=== PATIENT | female | born 1930 | race Caucasian/White ===

== ENCOUNTER 2018-01-04 23:03 | Inpatient (IN) | payer MEDICARE ==
[~2018-01-04] VITALS: Ht 162.6 cm; Wt 53.1 kg
[2018-01-05] VITALS (22 sets, daily range): BP systolic 89–187; BP diastolic 43–88
[2018-01-05] MEDS ORDERED: ONDANSETRON HCL 4 MG ORAL DISINTEGRATING TAB PO ONE (00:30)
--- NOTE | 2018-01-05 00:44 | Diagnostic Imaging Report ---
ABDOMEN ACUTE SERIES W/PA CXR Clinical history: Rectal pain Technique: AP view abdomen Comparison: 04/10/2017 chest radiograph Findings: Abdomen: Moderate gaseous distention of the stomach with air-fluid level. No dilated loops of small or large bowel or free air. 1 cm calcification of the left pelvis could reflect a fibroid or less likely bladder calculus. Chest: Stable appearance of the chest. Hyperinflation without acute abnormality. Aortic calcifications. Bones: Multilevel degenerative changes and curvature of the spine. Impression: 1. No acute pulmonary abnormality. 2. Moderate gastric distention with otherwise nonobstructive bowel gas pattern. Signed by: Dr Juany Naranjo MD on 01/05/2018 12:40 AM
[2018-01-05] MEDS ORDERED: DIATRIZOATE MEGL/DIATRIZOA SOD 30 ML BTL PO ONE (01:35)
[2018-01-05 01:41] LABS: BASOPHILS % 0.4 % (0.0-1.0); EOSINOPHILS # (AUTO) 0.1 (0.0-0.4); EOSINOPHILS % 0.9 % (0.0-6.0); HEMOGLOBIN 13.1 g/dL (12.0-16.0); LYMPHOCYTES # (AUTO) 1.4 (1.0-3.2); LYMPHOCYTES % 14.2 % (18.0-39.1); MEAN CORPUSCULAR HEMOGLOBIN 29.7 pg (28-32); MEAN CORPUSCULAR HGB CONC 35.4 g/dL (31-35); MEAN CORPUSCULAR VOLUME 83.9 fL (81-99); MONOCYTES # (AUTO) 0.7 (0.2-0.8); MONOCYTES % 6.8 % (4.4-11.3); NEUTROPHILS # (AUTO) 7.8 (2.1-6.9); NEUTROPHILS % 76.9 % (38.7-80.0); PLATELET COUNT 295 x10e3/uL (140-360); RED BLOOD COUNT 4.41 x10e6/uL (3.6-5.1); RED CELL DISTRIBUTION WIDTH 12.3 % (11.7-14.4)
[2018-01-05 02:00] LABS: ALANINE AMINOTRANSFERASE 12 IU/L (0-55); ALBUMIN 4.2 g/dL (3.5-5.0); ALBUMIN/GLOBULIN RATIO 1.2 (0.8-2.0); ALKALINE PHOSPHATASE 98 IU/L (40-150); AMYLASE 59 U/L (25-125); BLOOD UREA NITROGEN 11 mg/dL (7-26); BUN/CREATININE RATIO 14 (6-25); CALCIUM 9.6 mg/dL (8.4-10.2); CARBON DIOXIDE 22 mmol/L (22-29); CHLORIDE 83 mmol/L (98-107); EST GLOMERULAR FILTRATION RATE > 60 ML/MIN (60-); GLUCOSE 134 mg/dL (74-118); LIPASE 54 U/L (8-78)
[2018-01-05 02:06] LABS: BILIRUBIN,URINE NEGATIVE (NEGATIVE); CLARITY,URINE CLEAR (CLEAR); COLOR,URINE YELLOW (YELLOW); KETONES,URINE NEGATIVE (NEGATIVE); LEUKOCYTE ESTERASE ,URINE NEGATIVE (NEGATIVE); NITRITE,URINE NEGATIVE (NEGATIVE); PROTEIN,URINE DIPSTICK TRACE (NEGATIVE); URINE UROBILINOGEN 0.2 mg/dL (0.2 - 1)
[2018-01-05 02:08] LABS: EPITHELIAL CELLS,URINE FEW /LPF; WBC,URINE (MAN) 0-5 /HPF (0-5)
[2018-01-05 02:12] LABS: SODIUM 117 mmol/L (136-145)
[2018-01-05] MEDS ORDERED: SODIUM CHLORIDE 0.9% 1000ML 1,000 ML ONE (02:21)
[2018-01-05] MEDS ORDERED: MORPHINE SULFATE 2 MG/ML SYR IV STA (02:40)
[2018-01-05] MEDS ORDERED: SODIUM CHLORIDE 0.9% 50ML 50 ML ONE (02:46)
[2018-01-05] MEDS ORDERED: IOPAMIDOL 370 MG/ML 200 ML INFUS..BTL INJ ONE (02:48)
[2018-01-05] MEDS ORDERED: SILVER SULFADIAZINE 400GM CREAM ONE (03:37)
--- NOTE | 2018-01-05 03:40 | Diagnostic Imaging Report ---
EXAM: CT ABDOMEN/PELVIS W DATE: 01/05/2018 12:59 AM INDICATION: Abdominal pain and vomiting COMPARISON: None TECHNIQUE: The abdomen and pelvis were scanned using a multidetector helical scanner. Coronal and sagittal reformations were obtained. Routine protocol performed. IV Contrast: 100 ml Isovue 370 Oral contrast was administered. FINDINGS: LOWER THORAX: No consolidations LIVER/BILIARY: Several hypodense liver lesions, most likely cysts. No ductal dilatation. GALLBLADDER: Unremarkable SPLEEN: Normal spleen size with multiple tiny low-density lesions, indeterminate though statistically benign. PANCREAS: Unremarkable ADRENALS: No nodules KIDNEYS: Probable subcentimeter left renal cyst. No hydronephrosis. GI TRACT: Moderate gastric distention, but without evidence of obstructing lesion. Oral contrast passes through the stomach and into small bowel. Note is made of a normal appendix and diverticulosis, most prominent of the sigmoid colon. VESSELS: Moderate atherosclerotic disease PERITONEUM/RETROPERITONEUM: No free air or fluid LYMPH NODES: No lymphadenopathy REPRODUCTIVE ORGANS/BLADDER: Unremarkable BONES: Multilevel degenerative changes and curvature of the spine. IMPRESSION: 1. Moderate gastric dilation, but without evidence of obstruction. This can be seen with gastroparesis. 2. Otherwise no acute abnormality. Signed by: Dr Juany Naranjo MD on 01/05/2018 3:37 AM
--- OUTSIDE RECORDS SUMMARY | 2018-01-05 03:56 | XMS REPORT ---
Author Author [facility] Address Unknown Phone Unavailable Care Team Providers Care Financial Aid Officer Name Role Phone ELIZABETH JAMES Unavailable Unavailable Problems This patient has no known problems. Allergies, Adverse Reactions, Alerts This patient has no known allergies or adverse reactions. Medications This patient has no known medications. Results Test Description Test Time Test Comments Text Results Atomic Results Result Comments CT ABDOMEN/PELVIS W [address] [address] Patient Name: FRANK PERRY MR #: [id number] : 1930 Age/Sex: 87/F Req #: [id number] Adm Physician: Ordered by: ELIZABETH JAMES MD Report # : [id number] Location: ER Room/Bed: Procedure: [id number] -[id number] CT/CT ABDOMEN/PELVIS W Exam Date: Exam Time: REPORT STATUS: Signed EXAM: CT ABDOMEN/PELVIS W DATE: 01/05/2018 12: 59 AM INDICATION: Abdominal pain and vomiting COMPARISON: None TECHNIQUE: The abdomen and pelvis were scanned using a multidetector helical scanner. Coronal and sagittal reformations were obtained. Routine protocol performed. IV Contrast: 100 ml Isovue 370 Oral contrast was administered. FINDINGS: LOWER THORAX: No consolidations LIVER/BILIARY: Several hypodense liver lesions, most likely cysts. No ductal dilatation. GALLBLADDER: Unremarkable SPLEEN: Normal spleen size with multiple tiny low- density lesions, indeterminate though statistically benign. PANCREAS: Unremarkable ADRENALS: No nodules KIDNEYS: Probable subcentimeter left renal cyst. No hydronephrosis. GI TRACT: Moderate gastric distention, but without evidence of obstructing lesion. Oral contrast passes through the stomach and into small bowel. Note is made of a normal appendix and diverticulosis, most prominent of the sigmoid colon. VESSELS: Moderate atherosclerotic disease PERITONEUM/RETROPERITONEUM: No free air or fluid LYMPH NODES: No lymphadenopathy REPRODUCTIVE ORGANS/BLADDER: Unremarkable BONES: Multilevel degenerative changes and curvature of the spine. IMPRESSION: 1. Moderate gastric dilation, but without evidence of obstruction. This can be seen with gastroparesis. 2. Otherwise no acute abnormality. Signed by: Dr Jesse Naranjo MD on 01/05/2018 3:37 AM Dictated By: JESSE NARANJO MD 6 Transcribed By: ROLO on 01/05/18336 COPY TO: ELIZABETH JAMES MD ABDOMEN ACUTE SERIES W/PA CXR [place] [address] Patient Name: FRANK PERRY MR #: [id number] : 1930 Age/Sex: 87/F Req #: [id number] Adm Physician: Ordered by: ELIZABETH JAMES MD Report #: [id number] Location: ER Room/Bed: ___ Procedure: [id number] DX/ABDOMEN ACUTE SERIES W/PA CXR Exam Date: Exam Time: 2350 REPORT STATUS: Signed ABDOMEN ACUTE SERIES W/PA CXR Clinical history: Rectal pain Technique: AP view abdomen Comparison: 04/10/2017 chest radiograph Findings: Abdomen: Moderate gaseous distention of the stomach with air-fluid level. No dilated loops of small or large bowel or free air. 1 cm calcification of the left pelvis could reflect a fibroid or less likely bladder calculus. Chest : Stable appearance of the chest. Hyperinflation without acute abnormality. Aortic calcifications. Bones: Multilevel degenerative changes and curvature of the spine. Impression: 1. No acute pulmonary abnormality. 2. Moderate gastric distention with otherwise nonobstructive bowel gas pattern. Signed by: Dr Jesse Naranjo MD on 01/05/2018 12:40 AM Dictated By: JESSE NARANJO MD Transcribed By: ROLO on 01/05/1839 COPY TO: ELIZABETH JAMES MD
[2018-01-05] MEDS ORDERED: CEPHALEXIN500 MG PO (03:57)
[2018-01-05] MEDS ORDERED: NORVASC5 MG PO (03:57)
[2018-01-05] MEDS ORDERED: CELEBREX100 MG PO (03:57)
[2018-01-05] MEDS: SODIUM CHLORIDE 0.9% 1000ML 1,000 ML IV SCH ×2 (03:57→04:37)
[2018-01-05] MEDS ORDERED: ONDANSETRON HCL 4 MG ORAL DISINTEGRATING TAB PO PRN (04:00)
[2018-01-05] MEDS ORDERED: SIMETHICONE 40 MG/0.6 ML BTL PO ONE (04:45)
[2018-01-05] MEDS: CEPHALEXIN 500 MG CAP PO SCH ×5 (08:43→20:21)
[2018-01-05] MEDS: CELECOXIB 100 MG CAP PO SCH (08:43)
[2018-01-05 16:13] LABS: ANION GAP 11.3 mmol/L (8-16); BLOOD UREA NITROGEN 9 mg/dL (7-26); BUN/CREATININE RATIO 13 (6-25); CALCIUM 8.7 mg/dL (8.4-10.2); CARBON DIOXIDE 22 mmol/L (22-29); CHLORIDE 84 mmol/L (98-107); CREATININE, SERUM 0.71 mg/dL (0.57-1.11); EST GLOMERULAR FILTRATION RATE > 60 ML/MIN (60-); GLUCOSE 126 mg/dL (74-118); POTASSIUM 4.3 mmol/L (3.5-5.1)
[2018-01-05 16:17] LABS: SODIUM 113 mmol/L (136-145)
--- NOTE | 2018-01-05 16:32 | Diagnostic Imaging Report ---
Exam: Head CT without contrast History: Confusion and headache. Comparison studies: None Technique: Axial images were obtained from the skull base to the vertex. Coronal and sagittal images reconstructed from the axial data. Intravenous contrast: None Findings: Scalp: No abnormalities. Bones: No fractures, blastic or lytic lesions. Brain sulci: Appropriate for age. Ventricles: Normal in size and configuration. No hydrocephalus. Extra-axial spaces: No masses, no fluid collection. Parenchyma: Hypodensity in the right inferior insular region is compatible with a prominent perivascular space. No masses, hemorrhage, acute or chronic vascular insults. Sellar/suprasellar region: No abnormalities. Craniocervical junction: Patent foramen magnum. No Chiari one malformation. IMPRESSION: No acute intracranial abnormality. Preliminary report was provided by neuroradiology fellow, Dr.Thach Sarika MD on 01/05/2018 4:32 PM. I have reviewed the images and agree with the findings in the preliminary report. Signed by: Dr. Leonila Jorge M.D. on 01/05/2018 7:39 PM
[2018-01-05] MEDS ORDERED: HYDRALAZINE HCL 20 MG/ML VIAL IV PRN (17:00)
[2018-01-05] MEDS: COLLAGENASE OINTMENT 30 GM TUBE TP SCH (17:00)
[2018-01-05] MEDS: ONDANSETRON HCL INJ 2 MG/ML VIAL IV PRN (17:55)
[2018-01-05 18:02] LABS: THYROID STIMULATING HORMONE 1.921 uIU/mL (0.350-4.940)
[2018-01-05] MEDS ORDERED: SODIUM CHLORIDE 3% 500 ML IV SCH (18:15)
[2018-01-05] MEDS ORDERED: SODIUM CHLORIDE 0.9% 1000ML 1,000 ML IV ONE (18:15)
[2018-01-05] MEDS ORDERED: SODIUM CHLORIDE 3% 240 ML IV ONE ×2 (18:15→19:00)
[2018-01-05 18:27] LABS: CREATININE,URINE RANDOM 12.4 mg/dL (47-110)
[2018-01-05] MEDS ORDERED: SODIUM CHLORIDE 3% 100 ML IV ONE (18:30)
[2018-01-05 18:58] LABS: AMPHETAMINES SCREEN,URINE NEGATIVE (NEGATIVE); BENZODIAZEPINES SCREEN,URINE NEGATIVE (NEGATIVE); PHENCYCLIDINE SCREEN,URINE NEGATIVE (NEGATIVE)
[2018-01-05] MEDS: MORPHINE SULFATE 2 MG/ML SYR IV PRN (19:45)
[2018-01-05] MEDS: AMLODIPINE BESYLATE 5 MG TAB PO SCH ×2 (20:20→20:22)
[2018-01-05 21:41] LABS: ANION GAP 10.7 mmol/L (8-16); BLOOD UREA NITROGEN 11 mg/dL (7-26); BUN/CREATININE RATIO 15 (6-25); CALCIUM 8.1 mg/dL (8.4-10.2); CARBON DIOXIDE 19 mmol/L (22-29); CHLORIDE 89 mmol/L (98-107); CREATININE, SERUM 0.72 mg/dL (0.57-1.11); EST GLOMERULAR FILTRATION RATE > 60 ML/MIN (60-); GLUCOSE 126 mg/dL (74-118); POTASSIUM 3.7 mmol/L (3.5-5.1)
[2018-01-05 21:44] LABS: SODIUM 115 mmol/L (136-145)
[2018-01-05 23:36] LABS: CLARITY,URINE CLEAR (CLEAR); COLOR,URINE YELLOW (YELLOW); KETONES,URINE 1+ (NEGATIVE); LEUKOCYTE ESTERASE ,URINE NEGATIVE (NEGATIVE); NITRITE,URINE NEGATIVE (NEGATIVE); PROTEIN,URINE DIPSTICK 1+ (NEGATIVE)
[2018-01-05 23:37] LABS: BILIRUBIN,URINE NEGATIVE (NEGATIVE); URINE UROBILINOGEN 0.2 mg/dL (0.2 - 1)
[2018-01-05 23:48] LABS: EPITHELIAL CELLS,URINE RARE /LPF; WBC,URINE (MAN) 0-5 /HPF (0-5)
[2018-01-06] VITALS (29 sets, daily range): BP systolic 77–133; BP diastolic 41–70
[2018-01-06] MEDS ORDERED: CEFAZOLIN SOD 1 GM/NS 50ML 50 ML IV SCH
[2018-01-06] MEDS: CEFAZOLIN SOD 1 GM VIAL IV SCH ×5 (00:12→23:26)
[2018-01-06 00:39] LABS: BLOOD UREA NITROGEN 13 mg/dL (7-26); BUN/CREATININE RATIO 16 (6-25); CALCIUM 8.1 mg/dL (8.4-10.2); CARBON DIOXIDE 19 mmol/L (22-29); CHLORIDE 90 mmol/L (98-107); CREATININE, SERUM 0.82 mg/dL (0.57-1.11); EST GLOMERULAR FILTRATION RATE > 60 ML/MIN (60-); GLUCOSE 102 mg/dL (74-118)
[2018-01-06 00:47] LABS: SODIUM 117 mmol/L (136-145)
[2018-01-06] MEDS ORDERED: SODIUM CHLORIDE 0.9% 1000ML 1,000 ML IV SCH (01:00)
[2018-01-06] MEDS ORDERED: SODIUM CHLORIDE 0.9% 1000ML 1,000 ML ONE (01:07)
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
[2018-01-06 04:22] LABS: BASOPHILS % 0.1 % (0.0-1.0); EOSINOPHILS # (AUTO) 0.1 (0.0-0.4); EOSINOPHILS % 0.6 % (0.0-6.0); HEMATOCRIT 28.4 % (34.2-44.1); LYMPHOCYTES # (AUTO) 1.5 (1.0-3.2); LYMPHOCYTES % 18.8 % (18.0-39.1); MEAN CORPUSCULAR HEMOGLOBIN 29.6 pg (28-32); MEAN CORPUSCULAR HGB CONC 35.2 g/dL (31-35); MONOCYTES % 12.6 % (4.4-11.3); NEUTROPHILS # (AUTO) 5.3 (2.1-6.9); NEUTROPHILS % 67.5 % (38.7-80.0); PLATELET COUNT 223 x10e3/uL (140-360); RED BLOOD COUNT 3.38 x10e6/uL (3.6-5.1); RED CELL DISTRIBUTION WIDTH 12.3 % (11.7-14.4)
[2018-01-06 04:42] LABS: ALANINE AMINOTRANSFERASE 10 IU/L (0-55); ALBUMIN 2.6 g/dL (3.5-5.0); ALKALINE PHOSPHATASE 59 IU/L (40-150); ANION GAP 8.9 mmol/L (8-16); BLOOD UREA NITROGEN 12 mg/dL (7-26); BUN/CREATININE RATIO 16 (6-25); CARBON DIOXIDE 20 mmol/L (22-29); CHLORIDE 94 mmol/L (98-107); CREATININE, SERUM 0.76 mg/dL (0.57-1.11); EST GLOMERULAR FILTRATION RATE > 60 ML/MIN (60-); GLUCOSE 95 mg/dL (74-118); POTASSIUM 3.9 mmol/L (3.5-5.1)
[2018-01-06 04:43] LABS: SODIUM 119 mmol/L (136-145)
[2018-01-06] MEDS: MORPHINE SULFATE 2 MG/ML SYR IV PRN ×3 (04:44→20:31)
[2018-01-06] MEDS: ONDANSETRON HCL INJ 2 MG/ML VIAL IV PRN ×2 (04:48→20:31)
[2018-01-06] MEDS: ACETAMINOPHEN 325 MG TAB PO PRN (05:10)
--- NOTE | 2018-01-06 06:54 | Diagnostic Imaging Report ---
CHEST SINGLE (PORTABLE), 01/06/2018 5:00 AM Technique: CHEST SINGLE (PORTABLE) Comparison: 01/04/2018 Clinical history: Screening, altered mental status Findings: Stable appearance of the heart, mediastinum, lungs and pleural spaces given differences in technique. Minimal linear left basilar atelectasis or scar. Impression: 1. Lines/Tubes: None 2. No acute abnormality. Signed by: Dr Juany Naranjo MD on 01/06/2018 6:51 AM
[2018-01-06 08:40] LABS: ANION GAP 9.8 mmol/L (8-16); BLOOD UREA NITROGEN 11 mg/dL (7-26); BUN/CREATININE RATIO 14 (6-25); CALCIUM 7.9 mg/dL (8.4-10.2); CARBON DIOXIDE 19 mmol/L (22-29); CHLORIDE 96 mmol/L (98-107); CREATININE, SERUM 0.77 mg/dL (0.57-1.11); EST GLOMERULAR FILTRATION RATE > 60 ML/MIN (60-); GLUCOSE 93 mg/dL (74-118); POTASSIUM 3.8 mmol/L (3.5-5.1); SODIUM 121 mmol/L (136-145)
[2018-01-06] MEDS: COLLAGENASE OINTMENT 30 GM TUBE TP SCH ×2 (09:00→18:28)
[2018-01-06] MEDS: CELECOXIB 100 MG CAP PO SCH (09:21)
[2018-01-06] MEDS: HYDROCORTISONE ACETATE 25 MG/SUPP.RECT SUPP RC SCH ×2 (09:21→17:00)
[2018-01-06] MEDS ORDERED: SODIUM CHLORIDE 0.45% 1,000 ML IV SCH (10:15)
[2018-01-06 13:15] LABS: ANION GAP 11.9 mmol/L (8-16); BLOOD UREA NITROGEN 13 mg/dL (7-26); BUN/CREATININE RATIO 17 (6-25); CALCIUM 8.1 mg/dL (8.4-10.2); CARBON DIOXIDE 17 mmol/L (22-29); CHLORIDE 97 mmol/L (98-107); CREATININE, SERUM 0.77 mg/dL (0.57-1.11); EST GLOMERULAR FILTRATION RATE > 60 ML/MIN (60-); GLUCOSE 130 mg/dL (74-118); POTASSIUM 3.9 mmol/L (3.5-5.1); SODIUM 122 mmol/L (136-145)
--- NOTE | 2018-01-06 13:24 | Consultation ---
DATE OF CONSULTATION: January 05, 2018 History predominantly from family. The patient is confused, but alert and follows commands to some extent. Renal was consulted for hyponatremia. The patient apparently came in with rectal pain and hemorrhoids and developed altered mental status and had a CT scan done of the brain, which was negative. Chemistry shows profound hyponatremia. She was started on IV normal saline but repeat serum sodium dropped from 117 to 113. She has a normal creatinine of 0.7. Blood sugars 126 to 110. Serum osmolality is 229. Globulins are 3.60. Amylase, lipase normal. TSH pending. ALLERGIES: NO APPARENT DRUG ALLERGIES. SOCIAL HISTORY: Does not smoke or drink. FAMILY HISTORY: Significant for hypertension apparently and coronary artery disease. CURRENT MEDICATIONS: 1. She is on ondansetron p.r.n. 2. Morphine p.r.n. 3. She is on cephalexin (Keflex) 500 mg q.i.d. 4. She is on Celebrex 200 mg p.o. daily. 5. She is on amlodipine 5 mg at bedtime. 6. Started on IV normal saline at 80 mL an hour. 7. She is on simethicone drops p.r.n. PHYSICAL EXAMINATION: GENERAL: An elderly female lying supine. No apparent distress. HEAD AND NECK: Oral mucosa dry limited exam dry. Skin turgor poor. Some amount of senility to the skin turgor. LUNGS: Relatively clear. No rales or rhonchi. HEART: S1 and S2 audible. Soft 2-3/6 ejection systolic murmur in the right and left lower sternal border. No gallop. ABDOMEN: Soft, nontender. No palpable visceromegaly. EXTREMITIES: Lower extremities show no edema. IMPRESSION AND PLAN: Hyponatremia. Fairly concentrated urine with a urine specific gravity of 1.025. Hyponatremia, hypo-osmolar state. Most likely sodium depletion. Now whatever home medications have been listed. None of them can possibly cause hyponatremia. Will obtain thyroid function tests, serum uric acid. We may be dealing with explain symptoms of dehydration with poor salt intake, leading to hyponatremia. With appropriate of ADH nausea and vomiting. However, we may underlying [id number] phenomenon. Will give 800 mL of 3% hypertonic stat and then start 3% hypertonic saline at 40 mL an hour. Labs. Will limit the rate of rise of serum sodium by not more than 6 to 8 mEq in the next 24 hours. Nurse to call me when it runs. Patient to be transferred to the ICU. Discussed with RN. Job#: [id number] GH
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
--- NOTE | 2018-01-06 14:42 | Consultation ---
DATE OF CONSULTATION: January 05, 2018 NEUROLOGY CONSULT NOTE HISTORY OF PRESENT ILLNESS: Ms. Crisostomo is an 87-year-old woman with past medical history significant for hypertension and hyperlipidemia admitted to [facility] on January 13, 2018 with hyponatremia. The patient is encephalopathic and cannot provide any history. There are no family members available at the bedside. History is obtained from medical staff and review of the electronic medical records. Ms. Crisostomo presented to the emergency center at [facility] on evening of January 04, 2018 with hemorrhoids and rectal pain. The emergency center was preparing the patient's discharge, when Ms. Crisostomo had an episode of vomiting. Following this episode of emesis, blood work was ordered. The patient was found to be hyponatremic with a sodium of 117. Ms. Crisostomo was admitted to [facility] for further evaluation and treatment of hyponatremia. While on the floor, the patient became encephalopathic. Repeat blood work was ordered and showed the patient's sodium had dropped further to 113. Multiple consultations were placed at that time, including a neurology consultation for encephalopathy. REVIEW OF SYSTEMS: Unable to obtain as the patient is encephalopathic. PAST MEDICAL HISTORY: Hypertension, hyperlipidemia, GERD. PAST SURGICAL HISTORY: LASIK. FAMILY MEDICAL HISTORY: Hypertension. SOCIAL HISTORY: The patient is . She is retired. There is no reported current or prior history of tobacco, alcohol or recreational drug use. HOME MEDICATIONS 1. Norvasc 5 mg by mouth at bedtime daily. 2. Celebrex 200 mg by mouth daily. 3. Keflex 500 mg by mouth 4 times daily. ALLERGIES: NO KNOWN DRUG ALLERGIES. NO KNOWN FOOD ALLERGIES. NO KNOWN ALLERGIES TO LATEX. NO KNOWN ALLERGIES TO IODINE OR OTHER CONTRAST MATERIALS. PHYSICAL EXAMINATION VITAL SIGNS: Height 64 inches, weight 105 lbs, BMI 21.5 kg per meter squared. Blood pressure 131/67 mmHg. Pulse 97 beats per minute. Respiratory rate 18 breaths per minute. Oxygen saturation 97% on room air. GENERAL: The patient is awake, confused, anxious. HEENT: Normocephalic, atraumatic. Pupils are equal, round, and reactive to light. Moist mucous membranes. NECK: Supple. No appreciable thyromegaly. No appreciable carotid bruits. CARDIOVASCULAR: S1, S2, regular rate and rhythm. No murmurs, rubs or gallops. RESPIRATORY: Clear to auscultation bilaterally. No wheezes, rhonchi or rales. EXTREMITIES: The skin is warm and dry. No clubbing, cyanosis or edema. The posterior tibial and dorsalis pedis pulses are 1+ and symmetric. SKIN: No rashes or lesions. NEUROLOGIC Memory/Attention: The patient is awake and alert, confused, anxious. Ms. Crisostomo is oriented to self only. Cranial Nerves: Cranial nerve I--not tested. Cranial nerve II, III, IV, and --pupils are equal and round, react briskly to light (from 4 mm to 2 mm), extraocular movements intact, no nystagmus. Cranial nerve V--sensation to light touch and pinprick is intact in the bilateral V1 through V3 distributions. Strength of the temporalis and masseter muscles is within normal limits. Cranial nerve VII--the face is symmetric as were all facial movements. Strength is within normal limits. Cranial nerve VIII--hearing is intact to finger rub bilaterally. Cranial nerve IX, X--the palate elevates equally and symmetrically. Cranial nerve XI--normal strength of the bilateral sternocleidomastoid and trapezius muscles. Cranial nerve XII--the tongue protrudes midline and moves symmetrically from side to side. Strength: Normal bulk. Both arms are held against gravity for more than 10 seconds. Both legs are held against gravity for more than 5 seconds. Normal tone. DTRs: Deep tendon reflexes are 1+ and symmetric at the triceps biceps brachioradialis and patellas. The Achilles reflexes are absent and symmetric. Plantar responses are flexor bilaterally. Absent clonus. Sensation: Sensation is intact to light touch in both arms and both legs. Cerebellar: Unable to assess as the patient is encephalopathic. Gait: Deferred. Speech: Spontaneous speech is normal without appreciable dysarthria or aphasia. Involuntary Movements: Patient appears tremulous. Pronator drift: None. LABORATORY DATA: Sodium 113, BUN 10, glucose 110. Serum osmolality 229, triglycerides 74. TSH 1.291. Uric acid 1.3. Free T4 1.12. CBC with differential and platelets reveals white blood cell count of 10.08 with 76.9% neutrophils, 14.2% lymphocytes, 6.8% monocytes, 0.9% eosinophils, 0.4% basophils. The hemoglobin and hematocrit of 13.1 and 37.0 respectively. The platelet count 295,000. Urinalysis is significant for a pH of 8, trace protein, trace glucose, 2+ blood, and 11 to 20 red blood cells, urine sodium 65, urine creatinine 12.40. DIAGNOSTIC STUDIES 1. Acute abdomen series on January 04, 2018: No acute pulmonary abnormality. Moderate gastric distention with otherwise nonobstructive bowel-gas pattern. 2. CT of abdomen and pelvis on January 05, 2018: Moderate gastric dilation, but without evidence of obstruction. This can be seen with gastroparesis. Otherwise, no acute abnormality. 3. CT of the brain without contrast on January 05, 2018: On my review, there is no evidence of recent large territorial ischemia, hemorrhage, mass or mass affect. There is mild diffuse cerebral actually, appropriate for age. ASSESSMENT AND PLAN: Ms. Crisostomo is an 87-year-old woman with past medical history significant for hypertension and hyperlipidemia, admitted to [facility] on January 13, 2018 with hyponatremia. The patient's neurological examination is limited by encephalopathy. However, there do not appear to be any focal deficits. The patient's laboratory data and diagnostic studies have been reviewed and are documented above. Ms. Crisostomo is encephalopathic due to hyponatremia. There are multiple possible causes of hyponatremia including, but not limited to: Excessive fluid intake, poor oral intake of food/beverages, liver or kidney disease, congestive heart failure, syndrome of inappropriate ADH secretion, nausea and vomiting, diarrhea, or medication/drug affect. Ms. Crisostomo is not taking any medications which would result in hyponatremia. I spoke with the rice cleaning machine tender, Dr. Rider. He reported nausea and vomiting with poor oral intake over a period of several days prior to admission. He noted on his physical examination that the patient appeared to be "dry". He strongly suspects this is the cause of the patient's hyponatremia. Multiple blood and urine studies have been ordered. Dr. Rider has prescribed hypertonic saline to correct Ms. Crisostomo's hyponatremia. I will place orders for an echocardiogram as well as a urine drug screen. These studies are likely to be low yield, but will complete an hyponatremia evaluation. Thank you for this consultation. I will continue to follow this patient while she remains in hospital. TIME SPENT: 70 minutes. Job#: [id number]
[2018-01-06] MEDS ORDERED: SODIUM BICARBONATE 650 MG TAB PO SCH (17:00)
[2018-01-06 18:47] LABS: ANION GAP 10.2 mmol/L (8-16); BLOOD UREA NITROGEN 20 mg/dL (7-26); BUN/CREATININE RATIO 25 (6-25); CARBON DIOXIDE 21 mmol/L (22-29); CHLORIDE 99 mmol/L (98-107); CREATININE, SERUM 0.81 mg/dL (0.57-1.11); EST GLOMERULAR FILTRATION RATE > 60 ML/MIN (60-); GLUCOSE 97 mg/dL (74-118); POTASSIUM 4.2 mmol/L (3.5-5.1); SODIUM 126 mmol/L (136-145)
[2018-01-06] MEDS: AMLODIPINE BESYLATE 5 MG TAB PO SCH (20:31)
[2018-01-06] MEDS ORDERED: SODIUM CHLORIDE 1 GM TAB PO SCH (21:00)
[2018-01-07] VITALS (29 sets, daily range): BP systolic 106–154; BP diastolic 50–90
[2018-01-07] MEDS: MORPHINE SULFATE 2 MG/ML SYR IV PRN ×2 (00:39→04:15)
[2018-01-07 05:07] LABS: BASOPHILS % 0.6 % (0.0-1.0); EOSINOPHILS # (AUTO) 0.2 (0.0-0.4); EOSINOPHILS % 3.3 % (0.0-6.0); HEMATOCRIT 30.8 % (34.2-44.1); HEMOGLOBIN 10.7 g/dL (12.0-16.0); LYMPHOCYTES # (AUTO) 1.7 (1.0-3.2); LYMPHOCYTES % 27.7 % (18.0-39.1); MEAN CORPUSCULAR HEMOGLOBIN 29.8 pg (28-32); MEAN CORPUSCULAR HGB CONC 34.7 g/dL (31-35); MEAN CORPUSCULAR VOLUME 85.8 fL (81-99); MONOCYTES # (AUTO) 0.9 (0.2-0.8); MONOCYTES % 13.7 % (4.4-11.3); NEUTROPHILS # (AUTO) 3.4 (2.1-6.9); NEUTROPHILS % 54.2 % (38.7-80.0); PLATELET COUNT 215 x10e3/uL (140-360); RED BLOOD COUNT 3.59 x10e6/uL (3.6-5.1); RED CELL DISTRIBUTION WIDTH 12.9 % (11.7-14.4)
[2018-01-07 05:28] LABS: ALBUMIN 2.6 g/dL (3.5-5.0); CALCIUM 8.3 mg/dL (8.4-10.2); CREATININE, SERUM 0.9 mg/dL (0.57-1.11)
[2018-01-07] MEDS: ACETAMINOPHEN 325 MG TAB PO PRN (06:00)
[2018-01-07] MEDS: CEFAZOLIN SOD 1 GM VIAL IV SCH ×3 (06:47→18:00)
[2018-01-07] MEDS: COLLAGENASE OINTMENT 30 GM TUBE TP SCH ×2 (06:49→16:48)
[2018-01-07] MEDS: CELECOXIB 100 MG CAP PO SCH (09:25)
[2018-01-07] MEDS: SODIUM CHLORIDE 1 GM TAB PO SCH (09:25)
[2018-01-07] MEDS: HYDROCORTISONE ACETATE 25 MG/SUPP.RECT SUPP RC SCH ×2 (09:26→16:48)
[2018-01-07] MEDS: MAGNESIUM HYDROXIDE 30 ML UDC PO PRN (12:00)
--- NOTE | 2018-01-07 13:53 | Progress Note ---
DATE: January 07, 2018 PULMONARY MEDICINE PROGRESS NOTE SUBJECTIVE: Mrs. Crisostomo was seen and examined at the bedside. In 1.3 L and 3.1 L out recorded, and 97% oxygen saturation. Two liters per minute by nasal cannula. Three bowel movements achieved. Sodium continues to improve. She is sitting up. She does not feel drowsy today. REVIEW OF SYSTEMS: No headaches. No rash. OBJECTIVE VITALS: Afebrile. Vital signs noted per electronic record. GENERAL: In no acute distress. Alert and calm. HEENT: Normocephalic and atraumatic. NECK: Supple. Throat midline. LUNGS: Bilateral air entry. Few rare rhonchi. Mostly clear. CARDIOVASCULAR: S1 and S2. No murmurs, rubs or gallops. ABDOMEN: Soft and nontender. EXTREMITIES: No clubbing. No cyanosis. There is no edema. INTEGUMENT: No rash. No purpura. LABS: Sodium 133, potassium 4, BUN 16, creatinine 0.9. White count 6, hematocrit 30 and platelets 215,000. IMPRESSION AND PLAN 1. Critical hyponatremia. 2. Encephalopathy, resolved. 3. Weakness. 4. Recent jade. Continue local wound care. Pain medicine as needed, at least dose necessary. Follow up repeat sodium in the morning. Ensure the patient continues to improve. Job#: [id number]
[2018-01-07] MEDS: MAGNESIUM OXIDE 400 MG TAB PO SCH (15:00)
--- NOTE | 2018-01-07 15:26 | Progress Note ---
DATE: INTERNAL MEDICINE PROGRESS NOTE She is doing well now. The sodium is 133. She doing a lot better. She has some PVCs on the EKG. She was complaining neck pain. Since the patient has a history of coronary artery disease, Dr. Javier Hernandez is going to see her from the cardiology point of view. PHYSICAL EXAMINATION VITALS: Blood pressure 136/53, temperature 98.6, heart rate 80 per minute, respiratory rate is 20 per minute, oxygen saturation 97%. HEART: Shows regular rhythm. Normal S1 and S2 sounds. LUNGS: Clear bilaterally. ABDOMEN: Soft. EXTREMITIES: Show no evidence of cyanosis or trauma. BLOOD WORK: We have BMP with a sodium of 133, potassium 4, chloride 105, CO2 23, BUN 16, creatinine 0.9, glucose 87. On the CBC, white blood count 6.28, hemoglobin 10.7, hematocrit 30., and platelet count of 115,000. AST 23, ALT 9, total bilirubin 0.4, alkaline phosphatase 58. FINAL IMPRESSION 1. Episode of severe hyponatremia, which is slowly resolving. 2. Acute encephalopathy which is metabolic, which is resolved. 3. Hypertension. 4. Rectal pain, which is resolved. 5. Peripheral vascular disease on electrocardiogram. PLAN OF TREATMENT: Continue with the morphine 2 mg IV q.4 h. as needed for severe pain. Amlodipine 5 mg daily. Celebrex 200 mg daily as needed for pain. Cefazolin 1 g q.6 h. IV. Magnesium oxide 30 mL daily as needed. Collagenase twice a day. Hydrocortisone acetate 25 mg twice a day. 132 mL as needed. Hydralazine 20 mg IV q.3 h. as needed for hypertension. Sodium chloride tablet 2 g daily. Zofran 4 mg IV q.4 h. and Colace 100 mg twice a day, which is going to be substituted for Metamucil twice a day. We are going give for constipation because she does have constipation. I discussed the case with the nurse and the patient at the bedside. Time spent 55 minutes. Job#: [id number] SEGUNDO
[2018-01-07] MEDS: DOCUSATE SODIUM 100 MG CAP PO SCH (16:48)
[2018-01-07] MEDS: SOTALOL HCL 80 MG TAB PO SCH (16:50)
[2018-01-07] MEDS: MINERAL OIL 132 ML BTL PR PRN (17:00)
[2018-01-08] VITALS (9 sets, daily range): BP systolic 127–161; BP diastolic 50–73
[2018-01-08] MEDS: CEFAZOLIN SOD 1 GM VIAL IV SCH ×5 (00:23→23:39)
[2018-01-08] MEDS: ACETAMINOPHEN 325 MG TAB PO PRN (05:05)
[2018-01-08 06:12] LABS: BASOPHILS # (AUTO) 0.1 (0.0-0.1); BASOPHILS % 0.6 % (0.0-1.0); EOSINOPHILS # (AUTO) 0.5 (0.0-0.4); EOSINOPHILS % 6.9 % (0.0-6.0); HEMATOCRIT 31.5 % (34.2-44.1); HEMOGLOBIN 10.6 g/dL (12.0-16.0); LYMPHOCYTES # (AUTO) 1.4 (1.0-3.2); LYMPHOCYTES % 17.4 % (18.0-39.1); MEAN CORPUSCULAR HEMOGLOBIN 29.4 pg (28-32); MEAN CORPUSCULAR HGB CONC 33.7 g/dL (31-35); MEAN CORPUSCULAR VOLUME 87.3 fL (81-99); MONOCYTES % 12.5 % (4.4-11.3); NEUTROPHILS # (AUTO) 4.8 (2.1-6.9); NEUTROPHILS % 61.8 % (38.7-80.0); PLATELET COUNT 231 x10e3/uL (140-360); RED BLOOD COUNT 3.61 x10e6/uL (3.6-5.1); RED CELL DISTRIBUTION WIDTH 13.2 % (11.7-14.4)
[2018-01-08 06:59] LABS: ANION GAP 9.5 mmol/L (8-16); BLOOD UREA NITROGEN 16 mg/dL (7-26); BUN/CREATININE RATIO 20 (6-25); CALCIUM 8.5 mg/dL (8.4-10.2); CARBON DIOXIDE 26 mmol/L (22-29); CHLORIDE 100 mmol/L (98-107); CREATININE, SERUM 0.81 mg/dL (0.57-1.11); EST GLOMERULAR FILTRATION RATE > 60 ML/MIN (60-); GLUCOSE 87 mg/dL (74-118); MAGNESIUM 2.3 MG/DL (1.3-2.1); POTASSIUM 4.5 mmol/L (3.5-5.1); SODIUM 131 mmol/L (136-145)
[2018-01-08] MEDS: CELECOXIB 100 MG CAP PO SCH (10:06)
[2018-01-08] MEDS: SOTALOL HCL 80 MG TAB PO SCH ×2 (10:06→18:06)
[2018-01-08] MEDS: DOCUSATE SODIUM 100 MG CAP PO SCH ×2 (10:06→18:06)
[2018-01-08] MEDS: SODIUM CHLORIDE 1 GM TAB PO SCH (10:06)
[2018-01-08] MEDS: MAGNESIUM OXIDE 400 MG TAB PO SCH (10:06)
[2018-01-08] MEDS: HYDROCORTISONE ACETATE 25 MG/SUPP.RECT SUPP RC SCH ×2 (10:06→18:06)
[2018-01-08] MEDS: COLLAGENASE OINTMENT 30 GM TUBE TP SCH ×2 (10:07→21:00)
--- NOTE | 2018-01-08 13:28 | Progress Note ---
DATE: January 08, 2018 PULMONARY MEDICINE PROGRESS NOTE SUBJECTIVE: Mrs. Crisostomo was seen and examined at bedside. She continues to have . She was able to walk with some weakness only. Patient with some issues that Physical Therapy was trying to address. She is eating well. No emesis. REVIEW OF SYSTEMS: No bleeding, no rash. OBJECTIVE VITAL SIGNS: Afebrile. Vital signs noted per electronic record. GENERALLY: No acute distress, alert and calm. HEENT: Normocephalic, atraumatic. NECK: Supple. Throat midline. LUNGS: Bilateral air entry, a few rhonchi. CARDIOVASCULAR: S1 and S2. No murmurs, rubs or gallops. ABDOMINAL: Soft, nontender. EXTREMITIES: No clubbing, no cyanosis. There is no edema. INTEGUMENT: No rash. No purpura. LABS: Potassium 4.5, sodium 131, creatinine 0.8. White count 7.8, hematocrit 31, 331 platelets. IMPRESSION AND PLAN 1. Critical hyponatremia. 2. Encephalopathy, resolving. 3. Weakness. 4. Arrhythmia. 5. Hypomagnesemia. I will continue current treatment. Repeat electrolytes soon. Continue to work with Physical Therapy. Continue to monitor. Continue to modify intake per the renal specialist. Will follow along closely. Job#: [id number] PIYUSH
[2018-01-08] MEDS: ACEBUTOLOL HCL 200 MG CAP PO SCH (21:30)
[2018-01-09] VITALS (8 sets, daily range): BP systolic 131–186; BP diastolic 58–74
[2018-01-09] MEDS: CEFAZOLIN SOD 1 GM VIAL IV SCH ×4 (05:27→23:59)
[2018-01-09] MEDS: MAGNESIUM OXIDE 400 MG TAB PO SCH (08:18)
[2018-01-09] MEDS: DOCUSATE SODIUM 100 MG CAP PO SCH ×2 (08:18→17:20)
[2018-01-09] MEDS: CELECOXIB 200 MG CAP PO SCH (08:18)
[2018-01-09] MEDS: HYDROCORTISONE ACETATE 25 MG/SUPP.RECT SUPP RC SCH ×2 (08:19→17:00)
[2018-01-09] MEDS: SODIUM CHLORIDE 1 GM TAB PO SCH (08:19)
[2018-01-09] MEDS: ACEBUTOLOL HCL 200 MG CAP PO SCH ×3 (08:19→20:39)
[2018-01-09] MEDS: COLLAGENASE OINTMENT 30 GM TUBE TP SCH ×2 (09:00→19:50)
[2018-01-09] MEDS ORDERED: ONDANSETRON HCL 4 MG ORAL DISINTEGRATING TAB PO PRN (11:00)
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
[2018-01-10] VITALS (7 sets, daily range): BP systolic 126–165; BP diastolic 58–71
[2018-01-10] MEDS: CEFAZOLIN SOD 1 GM VIAL IV SCH ×3 (05:27→17:33)
[2018-01-10] MEDS: MAGNESIUM OXIDE 400 MG TAB PO SCH (07:30)
[2018-01-10] MEDS: DOCUSATE SODIUM 100 MG CAP PO SCH ×2 (08:54→16:23)
[2018-01-10] MEDS: CELECOXIB 200 MG CAP PO SCH (08:54)
[2018-01-10] MEDS: FUROSEMIDE 20 MG TAB PO SCH (08:54)
[2018-01-10] MEDS: COLLAGENASE OINTMENT 30 GM TUBE TP SCH ×2 (08:56→20:47)
[2018-01-10] MEDS: ACEBUTOLOL HCL 200 MG CAP PO SCH ×2 (08:56→16:24)
[2018-01-10] MEDS: SODIUM CHLORIDE 1 GM TAB PO SCH ×4 (08:56→20:49)
[2018-01-10] MEDS: HYDROCORTISONE ACETATE 25 MG/SUPP.RECT SUPP RC SCH ×2 (08:56→17:33)
[2018-01-10 09:37] LABS: ANION GAP 16.2 mmol/L (8-16); CALCIUM 9.6 mg/dL (8.4-10.2); CREATININE, SERUM 1.04 mg/dL (0.57-1.11); POTASSIUM 4.2 mmol/L (3.5-5.1)
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
[2018-01-10] MEDS: ACETAMINOPHEN 325 MG TAB PO PRN (15:56)
[2018-01-10] MEDS: MINERAL OIL 132 ML BTL PR PRN (16:30)
[2018-01-10] MEDS: MAGNESIUM HYDROXIDE 30 ML UDC PO PRN (19:30)
[2018-01-10] MEDS ORDERED: MIRALAX17 GM PO (19:31)
[2018-01-10] MEDS: POLYETHYLENE GLYCOL 3350 17 GM PACK PO SCH (20:52)
[2018-01-11] VITALS: BP 144/64
[2018-01-11] MEDS: CEFAZOLIN SOD 1 GM VIAL IV SCH ×3 (00:15→12:38)
[2018-01-11 08:03] VITALS: BP 149/66
[2018-01-11] MEDS: MAGNESIUM OXIDE 400 MG TAB PO SCH (08:40)
[2018-01-11] MEDS: POLYETHYLENE GLYCOL 3350 17 GM PACK PO SCH ×2 (08:40→16:20)
[2018-01-11] MEDS: FUROSEMIDE 20 MG TAB PO SCH (08:40)
[2018-01-11] MEDS: CELECOXIB 200 MG CAP PO SCH (08:40)
[2018-01-11] MEDS: DOCUSATE SODIUM 100 MG CAP PO SCH ×2 (08:40→16:20)
[2018-01-11] MEDS: ACEBUTOLOL HCL 200 MG CAP PO SCH ×2 (08:41→16:20)
[2018-01-11] MEDS: SODIUM CHLORIDE 1 GM TAB PO SCH ×3 (08:41→20:05)
[2018-01-11] MEDS: HYDROCORTISONE ACETATE 25 MG/SUPP.RECT SUPP RC SCH ×2 (08:41→16:20)
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
[2018-01-11] MEDS: ACETAMINOPHEN 325 MG TAB PO PRN (12:42)
[2018-01-11] MEDS: COLLAGENASE OINTMENT 30 GM TUBE TP SCH ×2 (13:57→20:06)
[2018-01-11 14:12] VITALS: BP 140/66
[2018-01-11 15:46] VITALS: BP 117/56
[2018-01-11 19:10] VITALS: BP 131/60
[2018-01-11 19:40] VITALS: BP 131/60
[2018-01-12] VITALS: BP 129/60
[2018-01-12 04:00] VITALS: BP 142/64
[2018-01-12 08:30] VITALS: BP 146/64
[2018-01-12] MEDS: POLYETHYLENE GLYCOL 3350 17 GM PACK PO SCH (09:00)
[2018-01-12] MEDS: FUROSEMIDE 20 MG TAB PO SCH (09:00)
[2018-01-12] MEDS: ACEBUTOLOL HCL 200 MG CAP PO SCH (09:30)
[2018-01-12] MEDS: CELECOXIB 200 MG CAP PO SCH (09:30)
[2018-01-12] MEDS: DOCUSATE SODIUM 100 MG CAP PO SCH (09:30)
[2018-01-12] MEDS: ACETAMINOPHEN 325 MG TAB PO PRN ×2 (09:30→14:45)
[2018-01-12] MEDS: MAGNESIUM OXIDE 400 MG TAB PO SCH (09:30)
[2018-01-12] MEDS: HYDROCORTISONE ACETATE 25 MG/SUPP.RECT SUPP RC SCH (09:30)
[2018-01-12] MEDS: SODIUM CHLORIDE 1 GM TAB PO SCH ×2 (09:30→15:19)
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
[2018-01-12 10:02] VITALS: BP 146/64
[2018-01-12] MEDS: COLLAGENASE OINTMENT 30 GM TUBE TP SCH (10:51)
[2018-01-12 11:46] VITALS: BP 143/66
[2018-01-12] MEDS: MINERAL OIL 132 ML BTL PR PRN (15:56)
[2018-01-12 16:26] VITALS: BP 157/63
[2018-01-12] MEDS ORDERED: ACEBUTOLOL HCL 200 MG CAP PO SCH (21:00)
[2018-01-12] MEDS ORDERED: DOCUSATE SODIUM 100 MG CAP PO SCH (21:00)
[2018-01-12] MEDS ORDERED: HYDROCORTISONE ACETATE 25 MG/SUPP.RECT SUPP RC SCH (21:00)
[2018-01-12] MEDS ORDERED: POLYETHYLENE GLYCOL 3350 17 GM PACK PO SCH (21:00)
== END 2018-01-12 17:27 | disposition home health service (06) | DRG 643 ==
LOC: ER 23:03 → MED/SURG3 01-05 03:53 → ICU 01-05 19:00 → MED/SURG 01-08 06:38
DX: E22.2 Syndrome of inappropriate secretion of antidiuretic hormone (principal); G93.41 Metabolic encephalopathy; E86.0 Dehydration; K31.84 Gastroparesis; I11.0 Hypertensive heart disease with heart failure; I50.30 Unspecified diastolic (congestive) heart failure; E83.42 Hypomagnesemia; K21.9 Gastro-esophageal reflux disease without esophagitis; X08.8XXA Exposure to other specified smoke, fire and flames, initial encounter; M47.9 Spondylosis, unspecified; M16.0 Bilateral primary osteoarthritis of hip; M81.0 Age-related osteoporosis without current pathological fracture; K59.00 Constipation, unspecified; N32.89 Other specified disorders of bladder; K64.4 Residual hemorrhoidal skin tags; D63.8 Anemia in other chronic diseases classified elsewhere; I49.3 Ventricular premature depolarization; I25.10 Atherosclerotic heart disease of native coronary artery without angina pectoris; T24.302D Burn of third degree of unspecified site of left lower limb, except ankle and foot, subsequent encounter; T21.32XD Burn of third degree of abdominal wall, subsequent encounter; K62.89 Other specified diseases of anus and rectum; G89.11 Acute pain due to trauma
CPT/HCPCS: 36415; 70450; 71045; 74022; 74177; 80048; 80053; 80307; 81001; 82150; 82436; 82570; 82947; 82948; 83690; 83735; 83930; 83935; 84295; 84300; 84439; 84443; 84478; 84520; 84550; 85025; 87086; 93005; 93306; 96360; 99284; J0360; J0690; J2270; J2405; J7030; Q9967

== ENCOUNTER → 2018-01-26 | Outpatient (CLI) | payer MEDICARE ==
[~2018-01-26] MED LIST: ACEBUTOLOL HCL200 MG PO; CELEBREX100 MG PO; CEPHALEXIN500 MG PO; DICLOXACILLIN250 MG PO; DICYCLOMINE HCL10 MG PO; MIRALAX17 GM PO; NORVASC5 MG PO; SODIUM CHLORIDE1 GM PO
--- NOTE | 2018-01-26 11:10 | Diagnostic Imaging Report ---
PROCEDURE: X-RAY BARIUM ENEMA WITH AIR CONTRAST COMPARISON: None. INDICATIONS: Rectal pain. Constipation. Lower back pain. TECHNIQUE: Croze Cutter film was obtained. Barium was introduced via a rectal tube in a retrograde fashion until contrast was noted to reach the cecum. Air was then introduced to fully inflate the colon. Multiple spot images as well as overhead and bilateral decubitus images were obtained. 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 There is no evidence of obstruction, mass, or intraluminal filling defects. No appendix is visualized. Multiple diverticuli are present in the descending and sigmoid colon. CONCLUSION: Diverticulosis of the descending and sigmoid colon. Otherwise, no acute radiographic abnormality. Dictated by: Wilman Romeo M.D. on 01/26/2018 at 11:12 Electronically approved by: Wilman Romeo M.D. on 01/26/2018 at 11:12
== END ==
LOC: DX 07:27
PROVIDERS: ATTEND Internal Medicine Gastroenterology
DX: K62.89 Other specified diseases of anus and rectum (principal)
CPT/HCPCS: 74280

== ENCOUNTER 2018-01-28 00:20 | Emergency (ER) | payer MEDICARE ==
[~2018-01-28] VITALS: Ht 162.6 cm; Wt 50.8 kg
[~2018-01-28 00:20] MED LIST changes: -ACEBUTOLOL HCL200 MG PO; -DICLOXACILLIN250 MG PO; -DICYCLOMINE HCL10 MG PO; -SODIUM CHLORIDE1 GM PO
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
[2018-01-28] MEDS ORDERED: AMLODIPINE BESYLATE 10 MG TAB PO ONE ×2 (00:45)
[2018-01-28] MEDS ORDERED: ACEBUTOLOL HCL200 MG PO (00:49)
[2018-01-28] MEDS ORDERED: DICYCLOMINE HCL10 MG PO (00:49)
[2018-01-28] MEDS ORDERED: DICLOXACILLIN250 MG PO (00:49)
[2018-01-28] MEDS ORDERED: SODIUM CHLORIDE1 GM PO (00:49)
[2018-01-28 01:12] LABS: BASOPHILS % 0.4 % (0.0-1.0); EOSINOPHILS # (AUTO) 0.3 (0.0-0.4); HEMATOCRIT 37.3 % (34.2-44.1); HEMOGLOBIN 12.5 g/dL (12.0-16.0); LYMPHOCYTES # (AUTO) 1.5 (1.0-3.2); MEAN CORPUSCULAR HEMOGLOBIN 29.7 pg (28-32); MEAN CORPUSCULAR HGB CONC 33.5 g/dL (31-35); MEAN CORPUSCULAR VOLUME 88.6 fL (81-99); MONOCYTES # (AUTO) 0.7 (0.2-0.8); MONOCYTES % 10.4 % (4.4-11.3); NEUTROPHILS # (AUTO) 4.4 (2.1-6.9); NEUTROPHILS % 63.6 % (38.7-80.0); PLATELET COUNT 240 x10e3/uL (140-360); RED BLOOD COUNT 4.21 x10e6/uL (3.6-5.1); RED CELL DISTRIBUTION WIDTH 13.2 % (11.7-14.4)
--- NOTE | 2018-01-28 01:14 | Diagnostic Imaging Report ---
History:Headache Comparison studies:Head CT on 01/05/2018 Technique: Axial images were obtained from the skull base to the vertex. Coronal and sagittal images reconstructed from the axial data. Intravenous contrast: None Findings: Scalp/skull: No abnormalities. Extra-axial spaces: No masses. No fluid collections. Brain sulci: Mildly prominent. Ventricles: Mild compensatory dilatation. No hydrocephalus. Parenchyma: Follow-up hypodensities in the supratentorial white matter are small vessel ischemic changes. No masses, hemorrhage, acute or chronic cortical vascular insults. Sellar/suprasellar region: No abnormalities. Craniocervical junction: Patent foramen magnum. No Chiari one malformation. Incidental findings: 3 mm prominent perivascular space inferior to the right putamen Subtle atherosclerotic calcifications in the carotid siphons . Impression: No acute abnormalities. No changes when compared to the head CT on 01/05/2018. Chronic findings: 1. Mild age-related volume loss. 2. Mild supratentorial white matter small vessel ischemic changes. Signed by: Dr. Samir Lindo M.D. on 01/28/2018 1:11 AM
[2018-01-28 01:16] LABS: INR 1.02; PROTHROMBIN TIME 12.6 seconds (11.9-14.5)
[2018-01-28 01:17] LABS: BILIRUBIN,URINE NEGATIVE (NEGATIVE); CLARITY,URINE CLEAR (CLEAR); COLOR,URINE YELLOW (YELLOW); KETONES,URINE NEGATIVE (NEGATIVE); LEUKOCYTE ESTERASE ,URINE NEGATIVE (NEGATIVE); NITRITE,URINE NEGATIVE (NEGATIVE); PARTIAL THROMBOPLASTIN TIME 29.7 seconds (23.8-35.5); PROTEIN,URINE DIPSTICK NEGATIVE (NEGATIVE); URINE UROBILINOGEN 0.2 mg/dL (0.2 - 1)
[2018-01-28 01:20] LABS: WBC,URINE (MAN) 0-5 /HPF (0-5)
--- NOTE | 2018-01-28 01:24 | Diagnostic Imaging Report ---
CHEST SINGLE (PORTABLE), 01/28/2018 12:34 AM Technique: CHEST SINGLE (PORTABLE) Comparison: 01/06/2018 Clinical history: Hypertension Findings: Stable appearance of the heart, mediastinum, lungs and pleural spaces. Minimal linear left basilar scar or atelectasis. Impression: 1. Lines/Tubes: None 2. No acute abnormality. Signed by: Dr Juany Naranjo MD on 01/28/2018 1:20 AM
[2018-01-28 01:28] LABS: ALANINE AMINOTRANSFERASE 14 IU/L (0-55); ALBUMIN 3.6 g/dL (3.5-5.0); ALBUMIN/GLOBULIN RATIO 1.1 (0.8-2.0); ALKALINE PHOSPHATASE 88 IU/L (40-150); BLOOD UREA NITROGEN 17 mg/dL (7-26); BUN/CREATININE RATIO 19 (6-25); CALCIUM 9.7 mg/dL (8.4-10.2); CARBON DIOXIDE 25 mmol/L (22-29); CREATINE KINASE 134 IU/L (29-168); CREATININE, SERUM 0.89 mg/dL (0.57-1.11); EST GLOMERULAR FILTRATION RATE 60 ML/MIN (60-); GLUCOSE 106 mg/dL (74-118)
[2018-01-28 01:39] LABS: ANION GAP 12.9 mmol/L (8-16)
[2018-01-28 01:43] LABS: CHLORIDE 101 mmol/L (98-107); POTASSIUM 3.9 mmol/L (3.5-5.1); SODIUM 135 mmol/L (136-145)
[2018-01-28] MEDS ORDERED: SODIUM CHLORIDE 0.9% 500ML 500 ML IV ONE (02:15)
[2018-01-28 04:57] LABS: CREATINE KINASE MB 4.7 ng/mL (0-5.0)
[2018-01-28 05:09] VITALS: BP 134/69
== END 2018-01-28 05:46 | disposition home or self-care (01) ==
LOC: ER 00:20
DX: I10 Essential (primary) hypertension (principal); K21.9 Gastro-esophageal reflux disease without esophagitis; Z87.19 Personal history of other diseases of the digestive system
CPT/HCPCS: 36415; 70450; 71045; 80053; 81001; 82550; 82553; 83735; 84484; 85025; 85610; 85730; 87086; 93005; 99284

== ENCOUNTER 2018-12-21 16:32 | Emergency (ER) | payer MEDICARE ==
[~2018-12-21] VITALS: Ht 162.6 cm; Wt 50.8 kg
[~2018-12-21 16:32] MED LIST changes: +ACEBUTOLOL HCL200 MG PO; +DICLOXACILLIN250 MG PO; +DICYCLOMINE HCL10 MG PO; +SODIUM CHLORIDE1 GM PO
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
[2018-12-21 18:41] LABS: COLOR,URINE YELLOW (YELLOW)
[2018-12-21 18:42] LABS: BILIRUBIN,URINE NEGATIVE (NEGATIVE); CLARITY,URINE CLEAR (CLEAR); KETONES,URINE NEGATIVE (NEGATIVE); LEUKOCYTE ESTERASE ,URINE TRACE (NEGATIVE); NITRITE,URINE NEGATIVE (NEGATIVE); PROTEIN,URINE DIPSTICK NEGATIVE (NEGATIVE); URINE UROBILINOGEN 0.2 mg/dL (0.2 - 1)
[2018-12-21 18:43] LABS: BACTERIA,URINE MANY /HPF; EPITHELIAL CELLS,URINE FEW /LPF
[2018-12-21] MEDS ORDERED: AMLODIPINE BESYLATE 5 MG TAB PO ONE (18:45)
[2018-12-21 19:06] LABS: BASOPHILS % 0.5 % (0.0-1.0); EOSINOPHILS # (AUTO) 0.2 (0.0-0.4); EOSINOPHILS % 2.2 % (0.0-6.0); HEMATOCRIT 42.7 % (34.2-44.1); HEMOGLOBIN 14.4 g/dL (12.0-16.0); LYMPHOCYTES # (AUTO) 1.5 (1.0-3.2); MEAN CORPUSCULAR HEMOGLOBIN 30.3 pg (28-32); MEAN CORPUSCULAR HGB CONC 33.7 g/dL (31-35); MEAN CORPUSCULAR VOLUME 89.7 fL (81-99); MONOCYTES # (AUTO) 0.6 (0.2-0.8); MONOCYTES % 6.7 % (4.4-11.3); NEUTROPHILS # (AUTO) 6.4 (2.1-6.9); NEUTROPHILS % 72.8 % (38.7-80.0); PLATELET COUNT 239 x10e3/uL (140-360); RED BLOOD COUNT 4.76 x10e6/uL (3.6-5.1); RED CELL DISTRIBUTION WIDTH 12.1 % (11.7-14.4)
--- NOTE | 2018-12-21 19:10 | NUR ---
REPORT AND WALKING ROUNDS COMPLETED WITH KRISTEN PABLO [employer] NURSE.
[2018-12-21 19:15] LABS: INR 0.88; PROTHROMBIN TIME 12.4 seconds (11.9-14.5)
[2018-12-21 19:16] LABS: PARTIAL THROMBOPLASTIN TIME 31.5 seconds (23.8-35.5)
[2018-12-21 19:18] LABS: ALBUMIN 4.2 g/dL (3.5-5.0); ALBUMIN/GLOBULIN RATIO 1.1 (0.8-2.0); CALCIUM 10.2 mg/dL (8.4-10.2); CREATININE, SERUM 0.96 mg/dL (0.57-1.11)
[2018-12-21 19:25] LABS: CREATINE KINASE MB 5.5 ng/mL (0-5.0)
--- NOTE | 2018-12-21 20:23 | Diagnostic Imaging Report ---
CHEST SINGLE (PORTABLE), 12/21/2018 12:00 AM Technique: CHEST SINGLE (PORTABLE) Comparison: 01/28/2018. Clinical history: Fever. High blood pressure. Chest pain. Findings: Stable appearance of the heart, mediastinum, lungs and pleural spaces. Mild calcification of the aortic arch, unchanged. Mild biapical pleural scarring. No pleural effusion or pneumothorax. Impression: 1. Lines/Tubes: None 2. No acute abnormality. No interval change. Signed by: Dr. Berta Perez M.D. on 12/21/2018 8:20 PM
[2018-12-21 21:03] VITALS: BP 142/64
== END 2018-12-21 21:05 | disposition home or self-care (01) ==
LOC: ER 16:32
DX: I10 Essential (primary) hypertension (principal)
CPT/HCPCS: 36415; 71045; 80053; 81001; 82550; 82553; 83880; 84484; 85025; 85610; 85730; 93005; 99284

== ENCOUNTER 2019-01-11 12:26 | Observation (INO) | payer MEDICARE, OTHER ==
[~2019-01-11] VITALS: Ht 160 cm; Wt 52.3 kg
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
--- NOTE | 2019-01-11 13:01 | NUR ---
[facility] CALLED FOR TRANSPORT
--- NOTE | 2019-01-11 13:44 | Diagnostic Imaging Report ---
EXAM: CXR 2 VIEW - HOPD, PA and lateral DATE: 01/11/2019 Time stamp on exam: 12:53 PM INDICATION: Unspecified COMPARISON: None FINDINGS: LINES/TUBES: None LUNGS: No consolidations or edema. Possible cavitary lesion in the left perihilar region. CT scan recommended for further evaluation. PLEURA: No effusions or pneumothorax. HEART AND MEDIASTINUM: Normal size and contour. BONES AND SOFT TISSUES: No acute findings. Degenerative changes of the spine. IMPRESSION: Possible cavitary lesion in the left perihilar area. Signed by: Dr. Hector Powell DO on 01/11/2019 1:40 PM
[2019-01-11] MEDS ORDERED: AMLODIPINE BES2.5 MG PO (13:49)
--- NOTE | 2019-01-11 13:53 | NUR ---
REPORT TO EMS
--- NOTE | 2019-01-11 14:09 | NUR ---
REPORT TO [facility]
--- NOTE | 2019-01-11 14:40 | NUR ---
ARRIVED VIA STRETCHER VIA AMBULANCE, AA&OX3 AT THIS TIME, RA, DENIES CP AT THIS TIME, ORIENTED TO ROOM AND CALL LIGHT SYSTEM, FAMILY AT SIDE
[2019-01-11 14:50] VITALS: BP 164/76
--- NOTE | 2019-01-11 14:50 | NUR ---
TELEPHONED MD Sheridan ALATORRE TO MAKE AWARE OF NEW PT, AWAITING CALL BACK
--- NOTE | 2019-01-11 14:57 | NUR ---
SPOKE WITH GIANNI AT MD STOREY'S OFFICE, AWARE OF CONSULT, NO NEW ORDERS AT THIS TIME
--- NOTE | 2019-01-11 15:29 | NUR ---
SPOKE WITH MD Sheridan ALATORRE, AWARE OF PT
[2019-01-11 15:41] VITALS: BP 150/72
[2019-01-11 15:42] VITALS: BP 150/72
[2019-01-11] MEDS: SODIUM CHLORIDE 0.9% 1000ML 1,000 ML IV SCH (16:00)
--- NOTE | 2019-01-11 16:25 | NUR ---
MD Sheridan ALATORRE INTO SEE PT, DISCUSSED POC
[2019-01-11 16:34] VITALS: BP 129/61
[2019-01-11] MEDS ORDERED: NON-FORMULARY MEDICATION (Amlodipine Besylate 2.5 MG) PO SCH (17:00)
[2019-01-11] MEDS ORDERED: AMLODIPINE BESYLATE 5 MG TAB PO SCH (17:00)
[2019-01-11] MEDS ORDERED: DICYCLOMINE HCL 10 MG CAP PO SCH (18:00)
[2019-01-11] MEDS ORDERED: DICYCLOMINE HCL 10 MG CAP PO PRN (18:15)
--- NOTE | 2019-01-11 18:15 | NUR ---
HOME MEDICATIONS VERIFIED WITH PT, MED LIST CORRECTED, WITH STANDBY ASSIST, PT OOB TO BR, VOIDING WITHOUT DIFFICULTY, STANDBY ASSIST BACK TO BED, CALL LIGHT WITHIN REACH
--- NOTE | 2019-01-11 18:35 | NUR ---
MD STOREY INTO SEE PT, DISCUSSED POC,
[2019-01-11 20:00] VITALS: BP 125/67
--- NOTE | 2019-01-11 20:51 | NUR ---
PATIENT C/O PAIN TO THE BACK, ICE THERAPY PROVIDED, CALL AND SPOKE WITH DR PLUNKETT REGARDING PAIN MANAGEMENT. ORDER RECEIVED FOR TYLENOL, WILL ADMINISTER THE MEDICATION ONCE THE ORDER HAS BEEN VERIFIED BY THE PHARMACIST.
[2019-01-11] MEDS ORDERED: CEFTRIAXONE SOD 1 GM/NS 50 ML 50 ML IV SCH (21:00)
[2019-01-11] MEDS: ACETAMINOPHEN 325 MG TAB PO PRN (21:17)
[2019-01-11] MEDS: AMLODIPINE BESYLATE 5 MG TAB PO SCH (21:17)
[2019-01-11] MEDS: ASPIRIN 325 MG TAB EC PO SCH (21:17)
[2019-01-12] VITALS: BP 140/68
--- NOTE | 2019-01-12 00:51 | NUR ---
PATIENT ASSISTED TO THE RESTROOM, SHE'S NOW BACK IN BED WITH BED ALARM ON AND CALL LIGHT WITHIN EASY REACH.
--- NOTE | 2019-01-12 03:14 | NUR ---
ROUNDS MADE, ASSISTED PATIENT TO THE RESTROOM AND SHE'S NOW BACK IN BED WITHOUT ACUTE DISTRESS AND SHE DENIES CHEST PAIN. CALL LIGHT IN EASY REACH, BED ALARM.
[2019-01-12 04:00] VITALS: BP 136/64
[2019-01-12] MEDS: ACETAMINOPHEN 325 MG TAB PO PRN (04:15)
--- NOTE | 2019-01-12 04:16 | NUR ---
PATIENT C/O MILD BACK PAIN WITH PAIN SCORE #3, MEDICATED WITH TYLENOL ORDERED. CALL LIGHT WITHIN EASY REACH, BED ALARM ON.
[2019-01-12] MEDS: SODIUM CHLORIDE 0.9% 1000ML 1,000 ML IV SCH (05:14)
[2019-01-12 06:19] LABS: BASOPHILS % 0.5 % (0.0-1.0); EOSINOPHILS # (AUTO) 0.4 (0.0-0.4); EOSINOPHILS % 5.2 % (0.0-6.0); HEMATOCRIT 36.8 % (34.2-44.1); HEMOGLOBIN 12.5 g/dL (12.0-16.0); LYMPHOCYTES # (AUTO) 2.5 (1.0-3.2); LYMPHOCYTES % 30.9 % (18.0-39.1); MEAN CORPUSCULAR HEMOGLOBIN 30.4 pg (28-32); MEAN CORPUSCULAR VOLUME 89.5 fL (81-99); MONOCYTES # (AUTO) 0.9 (0.2-0.8); MONOCYTES % 11.2 % (4.4-11.3); NEUTROPHILS # (AUTO) 3.8 (2.1-6.9); PLATELET COUNT 199 x10e3/uL (140-360); RED BLOOD COUNT 4.11 x10e6/uL (3.6-5.1); RED CELL DISTRIBUTION WIDTH 12.9 % (11.7-14.4)
[2019-01-12 06:32] LABS: ALBUMIN 2.9 g/dL (3.5-5.0); ALBUMIN/GLOBULIN RATIO 1.1 (0.8-2.0); ANION GAP 12.5 mmol/L (8-16); CALCIUM 8.5 mg/dL (8.4-10.2); CREATININE, SERUM 1.04 mg/dL (0.57-1.11); POTASSIUM 4.5 mmol/L (3.5-5.1)
[2019-01-12 06:57] LABS: CREATINE KINASE MB 1.1 ng/mL (0-5.0)
[2019-01-12 08:40] VITALS: BP 167/71
[2019-01-12] MEDS ORDERED: ACEBUTOLOL HCL 200 MG CAP PO SCH (09:00)
[2019-01-12] MEDS: AMLODIPINE BESYLATE 5 MG TAB PO SCH (09:05)
[2019-01-12] MEDS: ASPIRIN 325 MG TAB EC PO SCH (09:05)
[2019-01-12 09:18] VITALS: BP 167/71
--- NOTE | 2019-01-12 09:19 | NUR ---
TOLERATING PO AT THIS TIME, DENIES ANY CHEST PAIN , REPORTS HAVING 3 BM'S YESTERDAY, C/O INTERMITTENT PAIN "BELOW RECTAL, BUT NOT BAD NOW", WITH STANDBY ASSIST, PT OOB TO BS CHAIR, CALL LIGHT WITHIN REACH
[2019-01-12] MEDS ORDERED: FAMOTIDINE 20 MG/2 ML VIAL IV ONE (12:30)
[2019-01-12 13:25] VITALS: BP 158/70
--- NOTE | 2019-01-12 13:42 | NUR ---
SOCIAL WORK INITIAL ASSESSMENT Assessment Director to bedside to discuss plan of care with patient/family. CM/SW role and care transitions discussed. Anticipated discharge plan discussed along with duration of care. CM/SW discussed patients right to make decisions in care. CM/SW work hours given. Patient lives: IN HOUSE BY SELF Admit/Transfer: VIA ED POA/Emergency contact: LORRIE JARAMILLO DOESNT REMEMBER NUMBER Current/Previous Home Health: NONE PCP/Follow-up Care: [facility] Current/Previous DME: NONE Other Services: NONE Employment Status: RETRIED Areas of Concerns: NONE Referral Needs: NONE Education Needs: NONE IMM/ARELLANO given and signed (if applicable): UPON DISCHARGE Goal for discharge: RETURN HOME CM/SW left business card at the bedside with contact information. Name and number was also written on the patients whiteboard. Patient verbalized understanding of discussion. CM will follow-up with ongoing discharge and transition of care needs.
--- NOTE | 2019-01-12 13:48 | NUR ---
Dictated DC summary: [id number]
--- NOTE | 2019-01-12 14:09 | Discharge Summary ---
ADMITTING DIAGNOSES: 1. Atypical chest pain. 2. Hypertensive heart disease. 3. Mild acute renal insufficiency. DISCHARGE DIAGNOSES: 1. Atypical chest pain, resolved. 2. Hypertensive heart disease. 3. Mild acute renal insufficiency, resolved. 4. Gastroesophageal reflux disease. HOSPITAL COURSE: This is an 88-year-old white woman who initially admitted to [facility] with diagnosis of atypical chest pain, hypertensive heart disease, and mild acute renal insufficiency. The patient's acute renal insufficiency resolved with intravenous fluids. The patient underwent serial cardiac enzymes during this hospitalization, which did not reveal any evidence of acute myocardial infarction. The patient was seen by her bioinformatics support specialist, Dr. Javier Hernandez who stated that this patient's chest pain was noncardiac. The patient actually stated that her pain was more in the mid epigastric area. Her mid epigastric pain did improve with intravenous ranitidine. Brief hospitalization was unremarkable. CONDITION ON DISCHARGE: Stable. DISCHARGE MEDICATIONS: 1. Ranitidine 150 mg b.i.d. 2. Acebutolol 200 mg daily. 3. Amlodipine 2.5 mg b.i.d. 4. Dicyclomine 10 mg q.6 hours p.r.n. for abdominal cramping. FOLLOWUP: The patient was instructed to follow up with her primary care doctor, namely Dr. Choco Silva within 7 days. Rocco Miller MD MEO/MODL /[id number] cc: MD Javier Garcia MD MTDBlanco
--- NOTE | 2019-01-12 14:34 | NUR ---
MD PLUNKETT AND MD STOREY INTO SEE PT, DISCUSSED DISCHARGE INSTRUCTIONS WITH PT, VERBALIZED UNDERSTANDING
--- NOTE | 2019-01-12 14:45 | NUR ---
WHEELED OFF UNIT VIA WC FOR DISCHARGE, NO CHANGE IN CONDITION, FAMILY AT SIDE
--- NOTE | 2019-01-14 00:37 | Consultation ---
DATE OF CONSULTATION: The patient admitted by Dr. Choco Silva on January 11 and seen on January 11. HISTORY OF PRESENT ILLNESS: This is an 88-year-old patient, was kindly referred by Dr. Silva for cardiovascular evaluation. The patient was admitted through the emergency room for observation and being on telemetry. The patient stated that she had a sudden onset of central substernal chest pain, which left her extremely weak and when she recorded her blood pressure, it was elevated at 180/113 and subsequently went to the emergency room and was admitted for observation. Since admission, the patient is feeling better. She is still quite weak; however, her blood pressure is now recorded at 129/61. Her oxygen saturation is 97%. The patient has a history of chest pain and hypertension as well as hyperlipidemia. However, the patient's electrocardiogram shows sinus bradycardia, but no acute EKG changes noted and the cardiac enzymes have been normal. The patient also has a history of premature ventricular contraction, which has been controlled with Sectral 200 mg daily. PAST MEDICAL HISTORY: The patient's past history reveals that she has severe degenerative joint disease. 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 She also has severe osteoporosis. The patient also has GERD and IBS, mostly presenting with constipation and the patient has been seen by test puller, Dr. Pascal, and takes MiraLax every other day. The patient also has a history of idiopathic ADH syndrome with low sodium, which has been carefully monitored. ALLERGIES: NONE KNOWN. SOCIAL HISTORY: Negative. FAMILY HISTORY: Noncontributory. REVIEW OF SYSTEMS: The remainder of systems reviewed. The patient denies any fever or headaches. The patient denies any further chest pain or shortness of breath. The patient is complaining of low back pain, the patient does not have any difficulty moving arms and legs. The patient does complain of some left lower quadrant discomfort, which apparently comes and goes. She denies any leg edema. PHYSICAL EXAMINATION: VITAL SIGNS: Temperature of 97.4, pulse is 71, blood pressure 129/61, and oxygen saturation 97%. NECK: Carotid pulses are present. CHEST: Clear to auscultation. CARDIOVASCULAR: Normal apical impulse. The rhythm is regular. First and second heart sounds normal. There is no S3. ABDOMEN: Soft. There is no tenderness and no organomegaly. EXTREMITIES: Pulses are present, 2+ bilaterally. There is no peripheral edema. NEUROLOGIC: Does not reveal any motor defect. IMPRESSION: 1. Chest pain syndrome, atypical. 2. Hypertensive cardiovascular disease. 3. History of premature ventricular contractions. 4. History of hyponatremia. 5. Chronic low back pain. 6. Gastroesophageal reflux disease and irritable bowel syndrome. PLAN: Recommend to continue the patient's home medications and observation on telemetry with followup EKG. Thank you very much for letting me see this very nice patient. MD AYE Pederson/MODL /[id number] cc: Abdon Bauer DO
== END 2019-01-12 14:30 | disposition home or self-care (01) ==
LOC: FSED 12:26 → ERHOLD 12:46 → MED/SURG 14:15
DX: R07.89 Other chest pain (principal); N17.9 Acute kidney failure, unspecified; K21.9 Gastro-esophageal reflux disease without esophagitis; M19.90 Unspecified osteoarthritis, unspecified site; M54.5 Low back pain; G89.29 Other chronic pain; K58.9 Irritable bowel syndrome, unspecified; E22.2 Syndrome of inappropriate secretion of antidiuretic hormone; I11.9 Hypertensive heart disease without heart failure
CPT/HCPCS: 36415; 71046; 80053 ×2; 81003; 82550; 82553 ×2; 84484 ×2; 85025 ×2; 93005; 96367; 99284; G0378 ×2; J0696; J7030 ×2

== ENCOUNTER → 2019-06-10 | Day surgery (SDC) | payer MEDICARE ==
[2019-06-05 16:16] LABS: BASOPHILS % 0.5 % (0.0-1.0); EOSINOPHILS # (AUTO) 0.2 (0.0-0.4); EOSINOPHILS % 2.9 % (0.0-6.0); HEMATOCRIT 35.2 % (34.2-44.1); HEMOGLOBIN 11.7 g/dL (12.0-16.0); LYMPHOCYTES # (AUTO) 1.7 (1.0-3.2); LYMPHOCYTES % 22.1 % (18.0-39.1); MEAN CORPUSCULAR HEMOGLOBIN 30.3 pg (28-32); MEAN CORPUSCULAR HGB CONC 33.2 g/dL (31-35); MEAN CORPUSCULAR VOLUME 91.2 fL (81-99); MONOCYTES # (AUTO) 0.7 (0.2-0.8); MONOCYTES % 8.8 % (4.4-11.3); NEUTROPHILS # (AUTO) 4.8 (2.1-6.9); NEUTROPHILS % 64.8 % (38.7-80.0); PLATELET COUNT 214 x10e3/uL (140-360); RED BLOOD COUNT 3.86 x10e6/uL (3.6-5.1)
[~2019-06-10] MED LIST changes: +ACETAMINOPHEN PO; +AMLODIPINE BES2.5 MG PO; +ASPIR 8181 MG PO; +BIOTIN2500 MCG PO; +CALTRATE-600 W1 EACH PO; +FISH OIL 1,2001 EAC1 PO; +HEMORRHOIDAL S RC; +PANTOPRAZOLE 40 MG 10ML VIAL ONE; +PROCTOSOL-HC28.35 GM RC; +PROPOFOL IV EMULSION 10 MG/ML 50 ML VIAL ONE; +RANITIDINE HCL150 M1 PO; +RECTICARE30 GM TOP; +SODIUM CHLORIDE 0.9% 50ML 50 ML ONE; +VITAMIN D31000 UNI2 PO
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
[2019-06-10 09:55] VITALS: BP 147/68
--- NOTE | 2019-06-10 12:12 | Operative Report ---
DATE OF PROCEDURE: 06/10/2019 SURGEON: Logan Silva MD PROCEDURE: Esophagogastroduodenoscopy with esophageal dilatation and biopsies. INDICATION FOR EGD: Dysphagia. MEDICATIONS: The patient was done under MAC, please see anesthesiologist's note. PROCEDURE IN DETAIL: With the patient in left lateral decubitus position, a flexible fiberoptic Olympus gastroscope was introduced into the esophagus under direct visualization without any difficulty. There was some patchy erythema noted in the distal esophagus. A Schatzki ring was noted and that was dilated to size 50-[place] Garcia. The scope was then advanced with ease into the stomach traversing a small hiatal hernia. Mucosa overlying the antrum and the body revealed some patchy erythema and low-grade edema and biopsies were obtained and sent to stain for H pylori. Pylorus was of normal contour and shape, it was intubated with ease and the scope was advanced all the way to the second portion of the duodenum. The scope was then withdrawn slowly. Mucosa overlying the proximal second portion and the duodenal bulb appeared to be within normal limits. The scope was then withdrawn back into the stomach and retroflexed and mucosa overlying the fundus and the cardia appeared to be within normal limits. The scope was then straightened out, it was subsequently withdrawn. The patient tolerated the procedure well. IMPRESSION: 1. Distal esophagitis, mild. 2. Schatzki ring dilated to size 50-[place] Garcia. 3. Small hiatal hernia. 4. Gastritis, biopsied. Biopsies sent to stain for Helicobacter pylori. PLAN: Follow up histology. Initiate Protonix 40 mg one p.o. q.a.m. a.c. MD RAJENDRA Lugo/CARLYN /[id number] cc: Abdon Bauer DO
== END | disposition home or self-care (01) ==
LOC: OR 07:56
PROVIDERS: ATTEND Internal Medicine Gastroenterology
DX: K29.70 Gastritis, unspecified, without bleeding (principal); K20.9 Esophagitis, unspecified; K22.2 Esophageal obstruction; K44.9 Diaphragmatic hernia without obstruction or gangrene; R13.10 Dysphagia, unspecified; K59.00 Constipation, unspecified; R49.9 Unspecified voice and resonance disorder; Z01.812 Encounter for preprocedural laboratory examination; K21.9 Gastro-esophageal reflux disease without esophagitis; K58.9 Irritable bowel syndrome, unspecified; I10 Essential (primary) hypertension; M54.9 Dorsalgia, unspecified; H91.93 Unspecified hearing loss, bilateral; F95.9 Tic disorder, unspecified; K59.09 Other constipation; K62.89 Other specified diseases of anus and rectum; Z68.21 Body mass index [BMI] 21.0-21.9, adult
CPT/HCPCS: 36415; 43239; 43450; 85025; 88305; 88312; C9113; J2704

== ENCOUNTER 2019-08-09 12:40 | Emergency (ER) | payer MEDICARE ==
[~2019-08-09] VITALS: Ht 160 cm; Wt 52.2 kg
[~2019-08-09 12:40] MED LIST changes: -PANTOPRAZOLE 40 MG 10ML VIAL ONE; -PROPOFOL IV EMULSION 10 MG/ML 50 ML VIAL ONE; -SODIUM CHLORIDE 0.9% 50ML 50 ML ONE
[2019-08-09] MEDS ORDERED: DEXAMETHASONE SOD PHOS 10 MG/1 ML VIAL IM ONE (14:30)
[2019-08-09 14:57] LABS: BILIRUBIN,URINE NEGATIVE (NEGATIVE); CLARITY,URINE CLEAR (CLEAR); KETONES,URINE NEGATIVE (NEGATIVE); LEUKOCYTE ESTERASE ,URINE NEGATIVE (NEGATIVE); NITRITE,URINE NEGATIVE (NEGATIVE); PROTEIN,URINE DIPSTICK NEGATIVE (NEGATIVE); URINE UROBILINOGEN 0.2 mg/dL (0.2 - 1)
[2019-08-09 15:16] LABS: COLOR,URINE YELLOW (YELLOW); EPITHELIAL CELLS,URINE RARE /LPF; RBC,URINE 0-5 /HPF (0-5)
--- NOTE | 2019-08-09 15:49 | Diagnostic Imaging Report ---
Exam: Lumbar spine 4 views, sacrum and coccyx, 2 views History: Back pain Comparison: CT abdomen and pelvis 07/03/2019 Findings: There are 5 nonrib-bearing lumbar-type vertebral bodies. No acute, displaced fracture or subluxation. Soft tissue, ligamentous, and spinal cord abnormalities cannot be excluded on the basis of plain radiography. Mild levoscoliotic curvature is unchanged. Advanced degenerative disc changes L2-3 through L5-S1. No pars interarticularis defects on the oblique radiographs. Bilateral facet arthropathy L4-5 and L5-S1. The inferior sacral body and coccyx is obscured on the frontal radiograph secondary to rectal gas. The sacroiliac joints are intact. The sacral foramina are intact superiorly. Lateral radiograph shows no sacrococcygeal step-off. Impression: No acute osseous abnormality. Multilevel degenerative disc changes and facet arthropathy of the lumbar spine. Signed by: Dr. Tomy Larsen M.D. on 08/09/2019 3:46 PM
== END 2019-08-09 16:43 | disposition home or self-care (01) ==
LOC: ER 12:40
DX: M54.5 Low back pain (principal); M51.37 Other intervertebral disc degeneration, lumbosacral region; R51 Headache; I10 Essential (primary) hypertension
CPT/HCPCS: 72110; 72220; 81001; 99284; J1100

== ENCOUNTER 2019-10-18 10:28 | Emergency (ER) | payer MEDICARE ==
[~2019-10-18] VITALS: Ht 160 cm; Wt 52.2 kg
[2019-10-18] MEDS ORDERED: SODIUM CHLORIDE 0.9% 1000ML 1,000 ML IV SCH (11:30)
[2019-10-18 12:26] LABS: BILIRUBIN,URINE NEGATIVE (NEGATIVE); CLARITY,URINE CLEAR (CLEAR); COLOR,URINE YELLOW (YELLOW); KETONES,URINE NEGATIVE (NEGATIVE); LEUKOCYTE ESTERASE ,URINE NEGATIVE (NEGATIVE); NITRITE,URINE NEGATIVE (NEGATIVE); PROTEIN,URINE DIPSTICK NEGATIVE (NEGATIVE); URINE UROBILINOGEN 0.2 mg/dL (0.2 - 1)
[2019-10-18 12:33] LABS: BACTERIA,URINE MODERATE /HPF; EPITHELIAL CELLS,URINE FEW /LPF
[2019-10-18] MEDS ORDERED: KETOROLAC TROMETHAMINE 30 MG/ML VIAL IV STA (13:11)
[2019-10-18] MEDS ORDERED: SODIUM CHLORIDE 0.9% 500ML 500 ML IV ONE (13:15)
[2019-10-18] MEDS ORDERED: CEFTRIAXONE SOD 1 GM/NS 50 ML 50 ML IV ONE (14:00)
[2019-10-18] MEDS ORDERED: ACETAMINOPHEN 325 MG TAB PO ONE (14:00)
[2019-10-18 14:33] LABS: BASOPHILS # (AUTO) 0.1 (0.0-0.1); BASOPHILS % 1.2 % (0.0-1.0); EOSINOPHILS # (AUTO) 0.2 (0.0-0.4); HEMATOCRIT 40.9 % (34.2-44.1); HEMOGLOBIN 13.8 g/dL (12.0-16.0); LYMPHOCYTES # (AUTO) 1.4 (1.0-3.2); LYMPHOCYTES % 16.8 % (18.0-39.1); MEAN CORPUSCULAR HGB CONC 33.7 g/dL (31-35); MEAN CORPUSCULAR VOLUME 88.9 fL (81-99); MONOCYTES # (AUTO) 0.6 (0.2-0.8); MONOCYTES % 7.2 % (4.4-11.3); NEUTROPHILS # (AUTO) 5.4 (2.1-6.9); NEUTROPHILS % 66.4 % (38.7-80.0); PLATELET COUNT 310 x10e3/uL (140-360); RED CELL DISTRIBUTION WIDTH 12.9 % (11.7-14.4)
[2019-10-18 14:43] LABS: INR 0.9; PROTHROMBIN TIME 12.3 seconds (11.9-14.5)
--- NOTE | 2019-10-18 14:47 | Diagnostic Imaging Report ---
CT of the abdomen and pelvis, without contrast, 10/18/2019. History: UTI, burning with urination, lower back pain. Comparison: None available. Technique: Multidetector CT scanning of the abdomen and pelvis was performed from the level of the lung bases to the inferior pubic rami without intravenous or oral contrast. Coronal and sagittal multiplanar reformations were obtained. RADIATION DOSE: Total DLP: 161 mGy*cm Dose modulation, iterative reconstruction, and/or weight based adjustment of the mA/kV was utilized to reduce the radiation dose to as low as reasonably achievable. Discussion: Examination is limited without contrast. Lung bases: Calcified granulomata are present on the right. There is bibasilar scarring versus atelectasis. Abdomen: Calcified granuloma is noted within the liver. Scattered simple cysts are also present in the liver. The gallbladder, biliary tree, spleen, pancreas, adrenal glands, and kidneys are unremarkable. Is no evidence of nephrolithiasis, hydronephrosis, or perinephric fat stranding. The abdominal aorta is calcified but within normal limits for size. There is no bowel dilatation. The appendix is visualized and is normal. Multiple diverticuli are present within the descending and sigmoid colon without evidence of adjacent inflammation. There is no evidence of adenopathy or free fluid. Pelvis: The bladder is unremarkable. Uterus and adnexa are not clearly identified, either absent or atrophic and obscured by nonopacified bowel. There is no evidence of free fluid or adenopathy. Bones and soft tissues: Advanced degenerative changes are present throughout the lumbar spine without evidence of lytic or sclerotic lesion. IMPRESSION: 1. Findings of previous granulomatous disease within the chest and abdomen. 2. Simple benign hepatic cysts. 3. Colonic diverticulosis without evidence of diverticulitis. Otherwise unremarkable exam. No renal abnormality. Signed by: Michael Del Real on 10/18/2019 2:43 PM
[2019-10-18 14:51] LABS: ALBUMIN 3.9 g/dL (3.5-5.0); ALBUMIN/GLOBULIN RATIO 1.1 (0.8-2.0); ANION GAP 15.1 mmol/L (8-16); CALCIUM 10.1 mg/dL (8.4-10.2); CREATININE, SERUM 0.89 mg/dL (0.57-1.11); POTASSIUM 4.1 mmol/L (3.5-5.1)
[2019-10-18 14:58] LABS: CREATINE KINASE MB 3.7 ng/mL (0-5.0)
[2019-10-18] MEDS ORDERED: HYDRALAZINE HCL 20 MG/ML VIAL IV ONE (15:00)
[2019-10-18 15:30] VITALS: BP 155/67
== END 2019-10-18 15:51 | disposition home or self-care (01) ==
LOC: ER 10:28
DX: R30.0 Dysuria (principal); N30.91 Cystitis, unspecified with hematuria; I10 Essential (primary) hypertension; K21.9 Gastro-esophageal reflux disease without esophagitis; G89.29 Other chronic pain
CPT/HCPCS: 36415; 74176; 80053; 81001; 82550; 82553; 83735; 84484; 85025; 85610; 85730; 87086; 87186; 99284; J0360; J0696; J1885; J7040

== ENCOUNTER 2019-11-30 09:34 | Emergency (ER) | payer MEDICARE ==
[~2019-11-30] VITALS: Ht 160 cm; Wt 52.2 kg
[2019-11-30] MEDS: ASPIRIN 81 MG CHEW TAB PO ONE (10:26)
--- NOTE | 2019-11-30 10:31 | NUR ---
Patient to radiology for CT scan and chest x-ray.
[2019-11-30 10:34] LABS: BASOPHILS % 0.1 % (0.0-1.0); HEMATOCRIT 39.9 % (34.2-44.1); HEMOGLOBIN 13.4 g/dL (12.0-16.0); LYMPHOCYTES # (AUTO) 0.9 (1.0-3.2); LYMPHOCYTES % 6.7 % (18.0-39.1); MEAN CORPUSCULAR HEMOGLOBIN 30.1 pg (28-32); MEAN CORPUSCULAR HGB CONC 33.6 g/dL (31-35); MEAN CORPUSCULAR VOLUME 89.7 fL (81-99); MONOCYTES # (AUTO) 0.7 (0.2-0.8); MONOCYTES % 5.1 % (4.4-11.3); NEUTROPHILS # (AUTO) 11.4 (2.1-6.9); NEUTROPHILS % 87.3 % (38.7-80.0); PLATELET COUNT 257 x10e3/uL (140-360); RED BLOOD COUNT 4.45 x10e6/uL (3.6-5.1); RED CELL DISTRIBUTION WIDTH 13.1 % (11.7-14.4)
[2019-11-30 10:44] LABS: CLARITY,URINE CLEAR (CLEAR); COLOR,URINE YELLOW (YELLOW); LEUKOCYTE ESTERASE ,URINE TRACE (NEGATIVE); NITRITE,URINE NEGATIVE (NEGATIVE); PROTEIN,URINE DIPSTICK NEGATIVE (NEGATIVE)
[2019-11-30 10:45] LABS: BILIRUBIN,URINE NEGATIVE (NEGATIVE); KETONES,URINE NEGATIVE (NEGATIVE); URINE UROBILINOGEN 0.2 mg/dL (0.2 - 1)
[2019-11-30] MEDS ORDERED: DICYCLOMINE HCL20 MG PO (10:54)
[2019-11-30] MEDS ORDERED: LORAZEPAM2 MG/1 M2 PO (10:54)
[2019-11-30] MEDS ORDERED: PROPAFENONE HC325 MG PO (10:54)
[2019-11-30 10:55] LABS: INR 0.88; PARTIAL THROMBOPLASTIN TIME 26.4 seconds (23.8-35.5); PROTHROMBIN TIME 12.4 seconds (11.9-14.5)
[2019-11-30 10:56] LABS: ALBUMIN 4.2 g/dL (3.5-5.0); ALBUMIN/GLOBULIN RATIO 1.3 (0.8-2.0); ANION GAP 10.3 mmol/L (8-16); BACTERIA,URINE RARE /HPF; CALCIUM 10.1 mg/dL (8.4-10.2); EPITHELIAL CELLS,URINE FEW /LPF; MAGNESIUM 2.1 MG/DL (1.3-2.1); POTASSIUM 4.3 mmol/L (3.5-5.1)
--- NOTE | 2019-11-30 10:59 | Diagnostic Imaging Report ---
Examination: CT BRAIN WO CONTRAST History:Headache. Comparison studies:Head CT performed January 28, 2018. Technique: Axial images were obtained from the skull base to the vertex. Coronal and sagittal images reconstructed from the axial data. Dose modulation, iterative reconstruction, and/or weight based adjustment of the mA/kV was utilized to reduce the radiation dose to as low as reasonably achievable. Intravenous contrast: None Findings: Scalp: No abnormalities. Bones: No fractures, blastic or lytic lesions. Brain sulci: Mild volume loss for age. Ventricles: No hydrocephalus. Extra-axial space: No abnormalities. Parenchyma: Again demonstrated are subtle confluent areas of hypoattenuation in the periventricular and subcortical and pontine white matter, nonspecific. Dilated perivascular spaces are again demonstrated in the right greater than left inferior putamina. No masses, hemorrhage, or acute or chronic cortical based vascular insults. Sellar/suprasellar region: No abnormalities. Craniocervical junction: Patent foramen magnum. No Chiari one malformation. Incidental findings: Atherosclerotic calcification of the cavernous and supraclinoid internal carotid arteries. Impression: No new or acute intracranial abnormality when compared to prior head CT performed 28 Jan 2018. Unchanged mild chronic microvascular ischemic change and volume loss. Signed by: Dr. Jailyn Emanuel M.D. on 11/30/2019 10:56 AM
[2019-11-30 11:03] LABS: CREATINE KINASE MB 4.3 ng/mL (0-5.0)
[2019-11-30] MEDS: SODIUM CHLORIDE 0.9% 1000ML 1,000 ML IV STA (11:24)
[2019-11-30] MEDS: CEFTRIAXONE SOD 1 GM/NS 50 ML 50 ML IV ONE (11:25)
[2019-11-30] MEDS: ACETAMINOPHEN 325 MG TAB PO ONE (11:25)
--- NOTE | 2019-11-30 12:13 | Diagnostic Imaging Report ---
EXAMINATION: PA and lateral views of the chest. COMPARISON: Portable chest 12/21/2018, CT abdomen and pelvis 10/18/2019 CLINICAL HISTORY: Concern for pneumonia DISCUSSION: Lines/tubes: None. Lungs: Increased lucency in the upper lungs, suggests COPD. Mild bilateral apical pleural thickening. No consolidation. Ill-defined 4-5 mm nodular density projecting in the lower anterior chest only seen in the lateral view has no corresponding abnormality on recent CT abdomen and pelvis 10/18/2019 and likely represents summation of vessels shadows. Pleura: There is no pleural effusion or pneumothorax. Heart and mediastinum: Cardiomediastinal silhouette is unremarkable. Pulmonary vasculature is normal. Bones and soft tissues: No acute bony abnormalities. Degenerative changes in the thoracic spine IMPRESSION: No evidence of consolidation/pneumonia. Signed by: Dr. Boy Jose M.D. on 11/30/2019 12:09 PM
[2019-11-30 12:34] VITALS: BP 109/68
== END 2019-11-30 12:37 | disposition home or self-care (01) ==
LOC: ER 09:34
DX: R06.02 Shortness of breath (principal); R07.89 Other chest pain; R53.1 Weakness; R51 Headache; N30.91 Cystitis, unspecified with hematuria; I10 Essential (primary) hypertension; K21.9 Gastro-esophageal reflux disease without esophagitis
CPT/HCPCS: 36415; 70450; 71046; 80053; 81001; 82550; 82553; 83735; 83880; 84484; 85025; 85610; 85730; 87086; 93005; 94760; 99284; J0696; J7030

== ENCOUNTER 2019-12-01 13:51 | Emergency (ER) | payer MEDICARE ==
[~2019-12-01] VITALS: Ht 160 cm; Wt 52.2 kg
[~2019-12-01 13:51] MED LIST changes: +DICYCLOMINE HCL20 MG PO; +LORAZEPAM2 MG/1 M2 PO; +PROPAFENONE HC325 MG PO
[2019-12-01] MEDS ORDERED: SODIUM CHLORIDE 0.9% 1000ML 1,000 ML IV STA (14:04)
[2019-12-01] MEDS ORDERED: KETOROLAC TROMETHAMINE 30 MG/ML VIAL IV STA (14:07)
[2019-12-01 14:53] LABS: BASOPHILS % 0.4 % (0.0-1.0); EOSINOPHILS # (AUTO) 0.1 (0.0-0.4); HEMATOCRIT 44.5 % (34.2-44.1); LYMPHOCYTES # (AUTO) 0.8 (1.0-3.2); LYMPHOCYTES % 7.3 % (18.0-39.1); MEAN CORPUSCULAR HEMOGLOBIN 30.3 pg (28-32); MEAN CORPUSCULAR HGB CONC 33.7 g/dL (31-35); MEAN CORPUSCULAR VOLUME 89.9 fL (81-99); MONOCYTES # (AUTO) 0.2 (0.2-0.8); MONOCYTES % 2.2 % (4.4-11.3); NEUTROPHILS # (AUTO) 9.3 (2.1-6.9); NEUTROPHILS % 86.8 % (38.7-80.0); PLATELET COUNT 277 x10e3/uL (140-360); RED BLOOD COUNT 4.95 x10e6/uL (3.6-5.1)
[2019-12-01 15:03] LABS: INR 0.87; PROTHROMBIN TIME 12.3 seconds (11.9-14.5)
[2019-12-01 15:04] LABS: PARTIAL THROMBOPLASTIN TIME 26.9 seconds (23.8-35.5)
[2019-12-01 15:05] LABS: CLARITY,URINE CLEAR (CLEAR); COLOR,URINE YELLOW (YELLOW)
[2019-12-01 15:06] LABS: BILIRUBIN,URINE NEGATIVE (NEGATIVE); KETONES,URINE NEGATIVE (NEGATIVE); LEUKOCYTE ESTERASE ,URINE NEGATIVE (NEGATIVE); NITRITE,URINE NEGATIVE (NEGATIVE); PROTEIN,URINE DIPSTICK NEGATIVE (NEGATIVE); URINE UROBILINOGEN 0.2 mg/dL (0.2 - 1)
--- NOTE | 2019-12-01 15:08 | Diagnostic Imaging Report ---
CT Abdomen and Pelvis without contrast INDICATION: UTI, back/abdominal pain, ^Stone Protocol ^Y TECHNIQUE: Thin collimation axial images obtained from the diaphragm to the level of the pubic symphysis without nonionic intravenous contrast. Dose reduction techniques used: Automated exposure control, adjustment of the mAs and/or kVp according to patient size, standardized low-dose protocol, and/or iterative reconstruction technique. RADIATION DOSE: Total DLP: 156.37 mGy*cm Estimated effective dose: (DLP x 0.015 x size factor) mSv CTDIvol has been reviewed. It is below the limits set by the Radiation Protocol Committee (RPC). COMPARISON: CT abdomen/pelvis 10/18/2019. ABDOMEN FINDINGS: Lung Bases: Interstitial thickening of the lower lobes, left lung greater than right, is similar. There are tiny calcified granulomata in the right lung base. The heart is top normal in size. Small pericardial effusion. Liver: Stable low attenuating lesions measuring up to 11 mm are stable and are suggestive of cysts. Gallbladder: Present and appears normal. No ductal dilatation. Pancreas: Normal attenuation without mass. Spleen: Normal size without mass. Adrenal Glands: No evidence for mass. Kidneys: Right: No renal calculus. No cortical mass. The renal pelvis is mildly distended. No renal edema or perinephric inflammation. Left: No renal calculus. No cortical mass or hydronephrosis. No perinephric inflammation. Lymph Nodes: No lymphadenopathy. Aorta: Normal in diameter with scattered calcifications PELVIS FINDINGS: Bowel: Stomach: Normal. Small Bowel: Normal in caliber with normal wall thickness. Large Bowel: Diverticulosis coli. No associated inflammation. Moderate burden of stool in the right colon and transverse colon. The descending colon is collapsed. Appendix: Normal. Bladder: Well-distended and normal. Ureters: The right proximal and mid ureter is mildly distended without surrounding inflammation. No evidence of calculus. The left ureter is normal in diameter throughout its course. Uterus: Present and atrophic with several calcified fibroids. No adnexal mass. Peritoneum/retroperitoneum: No free fluid or fluid collection. Bones: Mild levoscoliosis with superimposed degenerative changes. No compression fractures or lytic/blastic lesions. Soft tissues: Unremarkable. IMPRESSION: 1. Mild distention of the right renal pelvis and ureter without calculus or surrounding inflammation. 2. No intrarenal calculi. 3. Diverticulosis coli. No evidence for bowel obstruction or inflammation. Moderate stool burden in the right colon and transverse colon. 4. Stable low attenuating hepatic lesions, likely cysts. Signed by: Dr. Salma Carrasco MD on 12/01/2019 3:05 PM
[2019-12-01 15:11] LABS: BACTERIA,URINE RARE /HPF; EPITHELIAL CELLS,URINE RARE /LPF; RBC,URINE 0-5 /HPF (0-5); WBC,URINE (MAN) 0-5 /HPF (0-5)
[2019-12-01 15:14] LABS: ALBUMIN 4.7 g/dL (3.5-5.0); ALBUMIN/GLOBULIN RATIO 1.2 (0.8-2.0); ANION GAP 13.2 mmol/L (8-16); CALCIUM 10.2 mg/dL (8.4-10.2); CREATININE, SERUM 0.98 mg/dL (0.57-1.11); MAGNESIUM 2.2 MG/DL (1.3-2.1); POTASSIUM 4.2 mmol/L (3.5-5.1)
[2019-12-01 15:20] LABS: CREATINE KINASE MB 3.8 ng/mL (0-5.0)
[2019-12-01 16:25] VITALS: BP 165/80
[2019-12-01 18:24] LABS: LYMPHOCYTES % (MANUAL) 7 % (19-48); MONOCYTES % (MANUAL) 1 % (3.4-9.0); NEUTROPHILS % (MANUAL) 92 % (40-74)
[2019-12-01 18:25] LABS: PLATELET ESTIMATE ADEQUATE; PLATELET MORPHOLOGY COMMENT NORMAL; RBC MORPHOLOGY COMMENT NORMAL
== END 2019-12-01 16:27 | disposition home or self-care (01) ==
LOC: ER 13:51
DX: M79.10 Myalgia, unspecified site (principal); I10 Essential (primary) hypertension; E78.5 Hyperlipidemia, unspecified; K21.9 Gastro-esophageal reflux disease without esophagitis
CPT/HCPCS: 36415; 74176; 80053; 81001; 82550; 82553; 83690; 83735; 83880; 84484; 85025; 85610; 85730; 87086; 87400; 93005; 99284

== ENCOUNTER → 2020-01-15 | Outpatient (CLI) | payer MEDICARE | LOC: CARD 08:21 | PROVIDERS: ATTEND Internal Medicine Cardiovascular Disease | DX: I65.8 Occlusion and stenosis of other precerebral arteries (principal) | CPT/HCPCS: 93880 ==

== ENCOUNTER → 2020-02-05 | Day surgery (SDC) | payer MEDICARE, OTHER ==
[2020-01-31 09:04] LABS: BASOPHILS % 0.6 % (0.0-1.0); EOSINOPHILS # (AUTO) 0.3 (0.0-0.4); EOSINOPHILS % 3.9 % (0.0-6.0); HEMATOCRIT 38.6 % (34.2-44.1); HEMOGLOBIN 12.9 g/dL (12.0-16.0); LYMPHOCYTES # (AUTO) 1.2 (1.0-3.2); LYMPHOCYTES % 17.5 % (18.0-39.1); MEAN CORPUSCULAR HEMOGLOBIN 29.9 pg (28-32); MEAN CORPUSCULAR HGB CONC 33.4 g/dL (31-35); MEAN CORPUSCULAR VOLUME 89.4 fL (81-99); MONOCYTES # (AUTO) 0.6 (0.2-0.8); NEUTROPHILS # (AUTO) 4.8 (2.1-6.9); PLATELET COUNT 199 x10e3/uL (140-360); RED BLOOD COUNT 4.32 x10e6/uL (3.6-5.1); RED CELL DISTRIBUTION WIDTH 12.8 % (11.7-14.4)
[~2020-02-05] MED LIST changes: +LIDOCAINE HCL 2% LOCAL INJ 5 ML SDV VIAL INJ ONE; +PROPOFOL IV EMULSION 10 MG/ML 20 ML VIAL ONE
[2020-02-05 10:55] VITALS: BP 145/71
--- NOTE | 2020-02-05 12:39 | Operative Report ---
DATE OF PROCEDURE: 02/05/2020 SURGEON: Logan Silva MD PROCEDURE: EGD with biopsies. INDICATION FOR EGD: History of melena. MEDICATIONS: The patient was done under MAC, please see anesthesiologist's note. PROCEDURE IN DETAIL: With the patient in left lateral decubitus position, a flexible fiberoptic Olympus gastroscope was introduced into the esophagus under direct visualization without any difficulty. There was some patchy erythema noted in distal esophagus. The scope was then advanced with ease into the stomach traversing a small hiatal hernia. Mucosa overlying the antrum and the body revealed some patchy erythema and low-grade to moderate edema, and biopsies were obtained sent to stain for H pylori. Pylorus was of normal contour and shape, was intubated with ease and the scope was advanced all the way to the second portion of the duodenum. The mucosa overlying the proximal second portion and duodenal bulb appeared to be within normal limits. The scope was then withdrawn back into the stomach and retroflexed. Mucosa overlying the fundus and cardia appeared to be within normal limits. The scope was then straightened out it was subsequently withdrawn. The patient tolerated the procedure well. IMPRESSION: 1. Distal esophagitis, mild. 2. Small hiatal hernia. 3. Gastritis, biopsied. Biopsies sent to stain for H pylori. PLAN: Follow up histology. Initiate Protonix 40 mg one p.o. q.a.m. a.c. Findings do not necessarily explain the patient's melena. We will proceed with a GI bleed scan under outpatient basis. Logan Silva MD [facility] [place] /[id number] cc: Abdon Bauer DO
--- OUTSIDE RECORDS SUMMARY | 2020-02-06 08:50 | XMS REPORT ---
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 Interpretation Comments Urine Clarity (test code = 48282-6) CLEAR CLEAR [facility] CampusUrine Specific Wfqpojx7274-36-87 15:06:00 * Test Item Value Reference Range Interpretation Comments Urine Specific [place] (test code = 5811-5) 1.020 1.010-1.02 5 [facility] CampusUrine lF9672-78-36 15:06:00* Test Item Value Reference Range Interpretation Comments Urine pH (test code = 92355-3) 7.5 5-7 [facility] CampusUrine Leukocyte Opkzylqd9448-45-26 15:06:00* Test Item Value Reference Range Interpretation Comments Urine Leukocyte Esterase (test code = 5799-2) NEGATIVE NEGATIVE [facility] CampusUrine Mbsehbz8598-05-26 15:06:00* Test Item Value Reference Range Interpretation Comments Urine Nitrite (test code = 30875-0) NEGATIVE NEGATIVE [facility] CampusUrine Ortbaum1432-53-22 15:06:00* Test Item Value Reference Range Interpretation Comments Urine Protein (test code = 5804-0) NEGATIVE NEGATIVE [facility] CampusUrine Glucose (UA)2019-12-01 15:06:00* Test Item Value Reference Range Interpretation Comments Urine Glucose (UA) (test code = 2349-9) NEGATIVE NEGATIVE [facility] CampusUrine Adhkhnl8289-02-41 15:06:00* Test Item Value Reference Range Interpretation Comments Urine Ketones (test code = 22098-1) NEGATIVE NEGATIVE [facility] CampusUrine Plqdxquwaotz8126-23-13 15:06:00* Test Item Value Reference Range Interpretation Comments Urine Urobilinogen (test code = 28235-6) 0.2 0.2-1 [facility] CampusUrine Oelnmxwsa2711-07-14 15:06:00* Test Item Value Reference Range Interpretation Comments Urine Bilirubin (test code = 1978-6) NEGATIVE NEGATIVE [facility] CampusUrine Rikfa1703-27-90 15:06:00* Test Item Value Reference Range Interpretation Comments Urine Blood (test code = 69584-4) NEGATIVE NEGATIVE [facility] CampusWhite Blood Jrqgu8810-38-13 15:00:00* Test Item Value Reference Range Interpretation Comments White Blood Count (test code = 6690-2) 10.68 4.8-10.8 [facility] CampusRed Blood Fghtx1481-15-28 15:00:00* Test Item Value Reference Range Interpretation Comments Red Blood Count (test code = 789-8) 4.95 3.6-5.1 [facility] CampusHemoglobin2020-03-15 15:00:00* Test Item Value Reference Range Interpretation Comments Hemoglobin (test code = 57975-6) 15.0 12.0-16.0 [facility] CampusHematocrit2020-03-15 15:00:00* Test Item Value Reference Range Interpretation Comments Hematocrit (test code = 4544-3) 44.5 34.2-44.1 [facility] CampusMean Corpuscular Fwwgil9812-43-33 15:00:00* Test Item Value Reference Range Interpretation Comments Mean Corpuscular Volume (test code = 787-2) 89.9 81-99 [facility] CampusMean Corpuscular Dtagharvee5372-85-91 15:00:00* Test Item Value Reference Range Interpretation Comments Mean Corpuscular Hemoglobin (test code = 785-6) 30.3 28-32 [facility] CampusMean Corpuscular Hemoglobin Concent 2019-12-01 15:00:00* Test Item Value Reference Range Interpretation Comments Mean Corpuscular Hemoglobin Concent (test code = 786-4) 33.7 31-35 [facility] CampusRed Cell Distribution Ripbo9943-94-61 15:00:00* Test Item Value Reference Range Interpretation Comments Red Cell Distribution Width (test code = 53326-6) 13.0 11.7 -14.4 [facility] CampusPlatelet Atite2427-98-88 15:00:00* Test Item Value Reference Range Interpretation Comments Platelet Count (test code = 777-3) 277 140-360 [facility] CampusNeutrophils (%) (Auto)2019-12-01 15:00:00 * Test Item Value Reference Range Interpretation Comments Neutrophils (%) (Auto) (test code = 61783-2) 86.8 38.7-80.0 [facility] CampusLymphocytes (%) (Auto)2019-12-01 15:00:00 * Test Item Value Reference Range Interpretation Comments Lymphocytes (%) (Auto) (test code = 736-9) 7.3 18.0-39.1 [facility] CampusMonocytes (%) (Auto)2019-12-01 15:00:00* Test Item Value Reference Range Interpretation Comments Monocytes (%) (Auto) (test code = 5905-5) 2.2 4.4-11.3 [facility] CampusEosinophils (%) (Auto)2019-12-01 15:00:00 * Test Item Value Reference Range Interpretation Comments Eosinophils (%) (Auto) (test code = 713-8) 1.0 0.0-6.0 [facility] CampusBasophils (%) (Auto)2019-12-01 15:00:00* Test Item Value Reference Range Interpretation Comments Basophils (%) (Auto) (test code = 706-2) 0.4 0.0-1.0 [facility] CampusIM GRANULOCYTES %2019-12-01 15:00:00* Test Item Value Reference Range Interpretation Comments IM GRANULOCYTES % (test code = IM GRANULOCYTES %) 2.3 0.0- 1.0 [facility] CampusNeutrophils # (Auto)2019-12-01 15:00:00* Test Item Value Reference Range Interpretation Comments Neutrophils # (Auto) (test code = 751-8) 9.3 2.1-6.9 [facility] CampusLymphocytes # (Auto)2019-12-01 15:00:00* Test Item Value Reference Range Interpretation Comments Lymphocytes # (Auto) (test code = 30985-2) 0.8 1.0-3.2 [facility] CampusMonocytes # (Auto)2019-12-01 15:00:00* Test Item Value Reference Range Interpretation Comments Monocytes # (Auto) (test code = 742-7) 0.2 0.2-0.8 [facility] CampusEosinophils # (Auto)2019-12-01 15:00:00* Test Item Value Reference Range Interpretation Comments Eosinophils # (Auto) (test code = 711-2) 0.1 0.0-0.4 [facility] CampusBasophils # (Auto)2019-12-01 15:00:00* Test Item Value Reference Range Interpretation Comments Basophils # (Auto) (test code = 704-7) 0.0 0.0-0.1 [facility] CampusAbsolute Immature Granulocyte (auto 2019-12-01 15:00:00* Test Item Value Reference Range Interpretation Comments Absolute Immature Granulocyte (auto (inocente t code = Absolute Immature Granulocyte (auto) 0.25 0-0.1 [facility] CampusCT ABDOMEN/PELVIS AO7893-66-96 14:56:00 [facility] [address] [place] [address] Patient Name: FRANK PERRY MR #: [id number] : 1930 Age/Sex: 89/F Req #: [id number] Adm Physician: Ordered by: LILIANA GARCIA MD Report #: [id number] Location: ER Room/Bed: Procedure: [id number] CT/CT ABDOMEN/PELVIS WO Exam Date: Exam Time: REPORT STATUS: Signed CT Abdomen and Pelvis without contrast INDICATION: UTI, back/abdominal pain, Stone Protocol Y TECHNIQUE: Thin collimation axial images obtained from the diaphragm to the level of the pubic symphysis without nonionic intravenous contrast. Dose reduction techniques used: Automated exposure control, adjustment of the mAs and/or kVp according to patient size, standardized low-dose protocol, and/or iterative reconstruction technique. RADIATION DOSE: Total DL P: 156.37 mGy*cm Estimated effective dose: (DLP x 0.015 x size factor) mS v CTDIvol has been reviewed. It is below the limits set by the Radiation Protocol Committee (RPC). COMPARISON: CT abdomen/pelvis 10/18/2019. ABDOMEN FINDINGS: Lung Bases: Interstitial thickening of the lower lobes, l eft lung greater than right, is similar. There are tiny calcified granulomata in the right lung base. The heart is top normal in size. Small pericardial eff usion. Liver: Stable low attenuating lesions measuring up to 11 mm are stab le and are suggestive of cysts. Gallbladder: Present and appears normal. No ductal dilatation. Pancreas: Normal attenuation without mass. Sple en: Normal size without mass. Adrenal Glands: No evidence for mass. Ki dneys: Right: No renal calculus. No cortical mass. The renal pelvis is mildl y distended. No renal edema or perinephric inflammation. Left: No renal calculus. No cortical mass or hydronephrosis. No perinephric inflammation. Lymph Nodes: No lymphadenopathy. Aorta: Normal in diameter with scatter ed calcifications PELVIS FINDINGS: Bowel: Stomach: Normal. Smal l Bowel: Normal in caliber with normal wall thickness. Large Bowel: Diverticul osis coli. No associated inflammation. Moderate burden of stool in the right c olon and transverse colon. The descending colon is collapsed. Appendix: Nor mal. Bladder: Well-distended and normal. Ureters: The right proximal a nd mid ureter is mildly distended without surrounding inflammation. No evidenc e of calculus. The left ureter is normal in diameter throughout its course. Uterus: Present and atrophic with several calcified fibroids. No adnexal m ass. Peritoneum/retroperitoneum: No free fluid or fluid collection. Benito nicholas: Mild levoscoliosis with superimposed degenerative changes. No compression fractures or lytic/blastic lesions. Soft tissues: Unremarkable. IMPRE SSION: 1. Mild distention of the right renal pelvis and ureter without ludy culus or surrounding inflammation. 2. No intrarenal calculi. 3. Div erticulosis coli. No evidence for bowel obstruction or inflammation. Moderate stool burden in the right colon and transverse colon. 4. Stable low atten uating hepatic lesions, likely cysts. Signed by: Dr. Salma Lopez MD on 12/01/2019 3:05 PM Dictated By: SALMA LOPEZ MD Electronically Si gned By: SALMA LOPEZ MD on 12/01/19 1505 Transcribed By: ROLO on 11/30 1505 COPY TO: LILIANA GARCIA MD CHEST 2 NIPXK0414-45-54 12:06:00 [place] [address] Patient Name: FRANK PERRY MR #: [id number] : 1930 Age/Sex: 89/F Req #: [id number] Adm Physician: Ordered by: LILIANA GARCIA MD Report #: [id number] Location: ER Room/Bed: Procedure: [id number] DX/CH EST 2 VIEWS Exam Date: 11/30/19 Exam Time: 1020 REPORT STATUS: Signed EXAMINATION: PA and lateral views of the chest. COMPARISON: Portable chest 12/21/2018, CT abdomen and pelvis 10/18/2019 CLINICAL HISTORY: Concern for pneumonia DISCUSSION: Lines/tubes: None. Lungs: Increased lucency in the upper lungs, suggests COPD. Mild bilateral apical pleural thickening. No con solidation. Ill-defined 4-5 mm nodular density projecting in the lower anterio r chest only seen in the lateral view has no corresponding abnormality on rece nt CT abdomen and pelvis 10/18/2019 and likely represents summation of vessels shadows. Pleura: There is no pleural effusion or pneumothorax. Heart and mediastinum: Cardiomediastinal silhouette is unremarkable. Pulmonary vasculature is normal. Bones and soft tissues: No acute bony abnormalities . Degenerative changes in the thoracic spine IMPRESSION: No evidence of consolidation/pneumonia. Signed by: Yohana Moore on 11/30/2019 12:09 PM Dictated By: ASHER KINNEY MD 08 Transcribed By: ROLO on 1208 COPY TO: LILIANA GARCIA MD B-Type Natriuretic Peptide 2019-11-30 11:04:00* Test Item Value Reference Range Interpretation Comments B-Type Natriuretic Peptide (test code = 36468-7) 382.2 0-100 [facility]CT [facility] FV0075-06-27 10:53:00 [place] [address] Patient Name: FRANK PERRY MR #: [id number] : 1930 Age/Sex: 89/F Req #: [id number] Adm Physician: Ordered by: LILIANA GARCIA MD Report #: [id number] Location: ER Room/Bed: Procedure: [id number] CT/CT BRAIN WO Exam Date: 11/30/19 Exam Time: 1020 REPORT STATUS: Signed Examination: CT BRAIN WO CONTRAST History:Headache. Comparison studies:Head CT performed January 28, 2018. Technique: Axial images were obtained from the skull base t o the vertex. Coronal and sagittal images reconstructed from the axial data. Dose modulation, iterative reconstruction, and/or weight based adjustment of the mA/kV was utilized to reduce the radiation dose to as low as reasonably ac hievable. Intravenous contrast: None Findings: Scalp: No abnormalit ies. Bones: No fractures, blastic or lytic lesions. Brain sulci: Mild vol ume loss for age. Ventricles: No hydrocephalus. Extra-axial space: No a bnormalities. Parenchyma: Again demonstrated are subtle confluent areas of hypoattenuation in the periventricular and subcortical and pontine white ma tter, nonspecific. Dilated perivascular spaces are again demonstrated in the r ight greater than left inferior putamina. No masses, hemorrhage, or acute or chronic cortical based vascular insults. Sellar/suprasellar region: No abn ormalities. Craniocervical junction: Patent foramen magnum. No Chiari one malf ormation. Incidental findings: Atherosclerotic calcification of the cave rnous and supraclinoid internal carotid arteries. Impression: No ne w or acute intracranial abnormality when compared to prior head CT performed 18 Jan 2018. Unchanged mild chronic microvascular ischemic change and volume loss. Signed by: Dr. Jailyn Emanuel M.D. on 11/30/2019 10:56 AM D ictated By: JAILYN SETPHENS MD 1056 Transcribed By: ROLO on 11/30/19 1056 COPY TO: LILIANA GARCIA MD CT ABDOMEN/PELVIS [id number] 14:33:00 [place] [address] Patient Name: FRANK PERRY MR #: [id number] : 1930 Age/Sex: 89/F Req #: [id number] Adm Physician: Ordered by: LILIANA GARCIA MD Report #: [id number] Location: ER Room/Bed: Procedure: [id number] CT/CT ABDOMEN/PELVIS WO Exam Date: 10/18/19 Exam Time: 13 23 REPORT STATUS: Signed CT o f the abdomen and pelvis, without contrast, 10/18/2019. Histo ry: UTI, burning with urination, lower back pain. Comparison: None availabl e. Technique: Multidetector CT scanning of the abdomen and pelvis was perfo rmed from the level of the lung bases to the inferior pubic rami without intra venous or oral contrast. Coronal and sagittal multiplanar reformations were o btained. RADIATION DOSE: Total DLP: 161 mGy*cm Dose modulatio n, iterative reconstruction, and/or weight based adjustment of the mA/kV was u tilized to reduce the radiation dose to as low as reasonably achievable. Discussion: Examination is limited without contrast. Lung bases: Calcified gr anulomata are present on the right. There is bibasilar scarring versus atelect asis. Abdomen: Calcified granuloma is noted within the liver. Scattered sim ple cysts are also present in the liver. The gallbladder, biliary tree, spleen , pancreas, adrenal glands, and kidneys are unremarkable. Is no evidence of nephrolithiasis, hydronephrosis, or perinephric fat stranding. The abdominal aorta is calcified but within normal limits for size. There is no bowel dilata tion. The appendix is visualized and is normal. Multiple diverticuli are prese nt within the descending and sigmoid colon without evidence of adjacent inflam mation. There is no evidence of adenopathy or free fluid. Pelvis: The autumn dder is unremarkable. Uterus and adnexa are not clearly identified, either abs ent or atrophic and obscured by nonopacified bowel. There is no evidence of fr ee fluid or adenopathy. Bones and soft tissues: Advanced degenerative blair ges are present throughout the lumbar spine without evidence of lytic or scler otic lesion. IMPRESSION: 1. 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 2. Simple benign hepatic cysts. 3. Colonic diverticulosis without evidence of diverticulitis. Otherwise unremarkable exa m. No renal abnormality. Signed by: Michael Del Real on 10/18/2019 2:43 P M Dictated By: MICHAEL DEL REAL MD 42 Transcribed By: ROLO on 10/18/191442 COPY TO: LILIANA SANZ MD ABDOMEN-1VIEW (KUB)2019-10-15 02:28:00 [place] [address] Patient Name: FRANK PERRY MR #: [id number] : 1930 Age/Sex: 89/F Req #: [id number] Adm Physician: Ordered by: ELIZABETH JAMES MD Report #: [id number] Location: ER Room/Bed: Procedure: [id number] DX/ABDOMEN-1VIEW (KUB) Exam Date: Exam Time: REPORT STATUS: Signed Abdomen/KUB INDICATION: Diffuse abdominal pain abd pain Y COMPARISON: Abdomen x-ray 09/27/2019. FINDINGS: Portable, supine image obtained at [address]. Medical Devices: None Bowel: Unremarkable bowel gas pattern. Moder ate burden of stool in the sigmoid colon and cecum. No dilated bowel loops. Free air: None Abdominal calcifications: None over the renal shadows or along the expected course of the ureters. Organomegaly: None Lung b ases: Patchy left basilar airspace opacity may represent atelectasis or infilt rate. Bones: Stable levoscoliosis of the lumbar spine. Mild degenerative ch anges of the hips. No focal osseous lesions IMPRESSION: Unremarkable bowel gas pattern. Moderate stool burden. Left basilar airspace opacity may represent atelectasis or pneumonia. Signed by: Dr. Salma Lopez MD on 10/15/2019 2:31 AM Dictated By: SALMA LOPEZ MD Electronically Si gned By: SALMA LOPEZ MD on 10/15/19230 Transcribed By: ROLO on 10/15 COPY TO: ELIZABETH JAMES MD ABDOMEN-1VIEW (KUB) 2019-09-27 11:22:00 [place] [address] Patient Name: FRANK PERRY MR #: [id number] : 1930 Age/Sex: 89/F Req #: [id number] Adm Physician: Ordered by: TADEO STOREY MD Report #: [id number] Location: [facility] Room/Bed: Procedure: [id number] DX/AB DOMEN-1VIEW ([facility]) Exam Date: 09/27/19 Exam Time: 103 0 REPORT STATUS: Signed Exam: KU B - 2 views Indication: Abdominal Pain Comparison: Abdomen and pelvis CT of 07/03/2019 Findings: Nonobstructive bowel gas pattern. No free air . Fluid within the pelvis. Degenerative changes of the visualized spine. Mild generative changes of both hip joints. Partially visualized lung bases appear clear. Impression: Nonobstructive bowel gas pattern. Signed by: Jacob Rich MD on 09/27/2019 11:23 AM Dictated By: YUMIKO RICH MD Electronical ly Signed By: YUMIKO RICH MD on 09/27/19 112 Transcribed By: ROLO on 0 1123 COPY TO: TADEO STOREY MD SACRUM [id number] 15:43:00 [place] [address] Patient Name: FRANK PERRY MR #: [id number] : 1930 Age/Sex: 89/F Req #: [id number] Adm Physician: Ordered by: TSERING CAMERNO MD Report #: [id number] Location: ER Room/Bed: Procedure: [id number] D X/SACRUM COCCYX Exam Date: 08/09/19 Exam Time: 150 5 REPORT STATUS: Signed Exam: Lumbar spine 4 views, sacrum and coccyx, 2 views History: Back pain Comparison: CT abdomen and pelvis 07/03/2019 Findings: There are 5 no nrib-bearing lumbar-type vertebral bodies. No acute, displaced fracture or sub luxation. Soft tissue, ligamentous, and spinal cord abnormalities cannot be ex cluded on the basis of plain radiography. Mild levoscoliotic curvature is unch anged. Advanced degenerative disc changes L2-3 through L5-S1. No pars interart icularis defects on the oblique radiographs. Bilateral facet arthropathy L4-5 and L5-S1. The inferior sacral body and coccyx is obscured on the frontal r adiograph secondary to rectal gas. The sacroiliac joints are intact. The sacra l foramina are intact superiorly. Lateral radiograph shows no sacrococcygeal s tep-off. Impression: No acute osseous abnormality. 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 Signed by : Dr. Jazmyn Larsen M.D. on 08/09/2019 3:46 PM Dictated By: JAZMYN Vizcaino MD 45 Transcribed B y: ROLO on 08/09/191545 COPY TO: TSERING CAMERON MD SP LUMBAR, COMPLETE MIN [id number] 15:43:00 [place] [address] Patient Name: FRANK PERRY MR #: [id number] : 1930 Age/Sex: 89/F Req #: [id number] Adm Physician: Ordered by: TSERING CAMERON MD Report #: [id number] Location: ER Room/Bed: Procedure: [id number] D X/SP LUMBAR, COMPLETE MIN 4VW Exam Date: 08/09/19 Ex am Time: 1505 REPORT STATUS: Signed Exam: Lumbar spine 4 views, sacrum and coccyx, 2 views History: Ba ck pain Comparison: CT abdomen and pelvis 07/03/2019 Findings: Th ere are 5 nonrib-bearing lumbar-type vertebral bodies. No acute, displaced fra cture or subluxation. Soft tissue, ligamentous, and spinal cord abnormalities cannot be excluded on the basis of plain radiography. Mild levoscoliotic curva ture is unchanged. Advanced degenerative disc changes L2-3 through L5-S1. No p ars interarticularis defects on the oblique radiographs. Bilateral facet arthr opathy L4-5 and L5-S1. The inferior sacral body and coccyx is obscured on t he frontal radiograph secondary to rectal gas. The sacroiliac joints are intac t. The sacral foramina are intact superiorly. Lateral radiograph shows no sacr ococcygeal step-off. Impression: No acute osseous abnormality. Multile luke degenerative disc changes and facet arthropathy of the lumbar spine. Signed by: Dr. Jazmyn Larsen M.D. on 08/09/2019 3:46 PM Dictated By: JAZMYN LARSEN MD 1546 T ranscribed By: ROLO on 08/09/19 1546 COPY TO: TSERING CAMERON MD CT ABDOMEN/PELVIS [id number] 09:50:00 [place] [address] Patient Name: FRANK PERRY MR #: [id number] : 1930 Age/Sex: 89/F Req #: [id number] [facility] Physician: Ordered by: SUYAPA ALATORRE MD Report #: [id number] Location: CT Room/Bed: Procedure: [id number] CT/C T ABDOMEN/PELVIS W Exam Date: 07/03/19 Exam Time: 05 28 REPORT STATUS: Signed EXAM: C T Abdomen and Pelvis WITH intravenous contrast INDICATION: Abdominal pain COMPARISON: CT abdomen and pelvis of 01/05/2018 TECHNIQUE: Abdomen and pelvis were scanned utilizing a multidetector helical scanner from the lung b ase to the pubic symphysis after administration of IV contrast. Coronal and sa gittal reformations were obtained. Routine protocol was performed. Scan was pe rformed during portal venous phase. IV CONTRAST: 100mL of Isovue 370 ORAL CONTRAST: Water RADIATION DOSE: Total DLP: 192.2 mGy*cm Dose modulation, iterative reconstruction, and/or weight based adjustment of the mA /kV was utilized to reduce the radiation dose to as low as reasonably achievab le. FINDINGS: LOWER THORAX: Mild bibasilar subsegmental atelectasis. No focal consolidation. HEPATOBILIARY: Diffuse hepatic steatosis. Several appr oximately 1 cm hypodense lesions in the right liver are indeterminate but like ly represent cysts. No biliary ductal dilation. Unremarkable gallbladder. SPLEEN: No splenomegaly. PANCREAS: No focal masses or ductal dilatation. ADRENALS: No adrenal nodules. KIDNEYS/URETERS: No hydronephrosis, stones, or solid mass lesions. PELVIC ORGANS/BLADDER: Unremarkable. PERITONEUM / RETROPERITONEUM: No free air or fluid. LYMPH NODES: No lymphadenopathy. VESS ELS: Diffuse atherosclerotic calcifications of the nonaneurysmal abdominal aor ta and major branches. GI TRACT: Sigmoid diverticulosis. No CT evidence of diverticulitis. No abnormal bowel wall thickening. No bowel obstruction. Luba l appendix. BONES AND SOFT TISSUES: No acute osseous injury. Degenerative c hanges of the visualized spine. No suspicious lytic or blastic lesions. I MPRESSION: Sigmoid diverticulosis. No CT evidence of diverticulitis. Dif fuse hepatic steatosis. Approximately 1 cm hypodense lesions in the right l iver are indeterminate but likely represent cysts. Signed by: Yumiko Rich MD on 07/03/2019 9:56 AM Dictated By: YUMIKO RICH MD Electronically Sign ed By: YUMIKO RICH MD on 07/03/19955 Transcribed By: ROLO on 07/03/19955 COPY TO: SUYAPA ALATORRE MD CXR 2 VIEW - [id number] 13:38:00 [place] [address] Patient Name: FRANK PERRY MR #: [id number] : 1930 Age/Sex: 88/F Req #: [id number] Adm Physician: CALEB ALATORRE MD Ordered by: LINDY WALKER MD Report #: [id number] Location: [facility] Room/Bed: [place] [address] Procedure: [id number] HOPD/CXR 2 VIEW - HOPD Exam Date: 01/11/19 Exam Fidel e: 1302 REPORT STATUS: Signed EX AM: CXR 2 VIEW - HOPD, PA and lateral DATE: 01/11/2019 Time stamp on exam: 12: 53 PM INDICATION: Unspecified COMPARISON: None FINDINGS: LINES/TUBES: None LUNGS: No consolidations or edema. Possible cavitary lesion in the le ft perihilar region. CT scan recommended for further evaluation. PLEURA: No effusions or pneumothorax. HEART AND MEDIASTINUM: Normal size and contou r. BONES AND SOFT TISSUES: No acute findings. Degenerative changes of the s pine. IMPRESSION: Possible cavitary lesion in the left perihilar area. Signed by: Dr. Tony Avilez DO on 01/11/2019 1:40 PM Dict ated By: TONY AVILEZ DO 1340 COPY TO: GREGORY WALKER MD CHEST SINGLE (PORTABLE)2018-12-21 20:16:00 [place] [address] Patient Name: FRANK PERRY MR #: [id number] : 1930 Age/Sex: 88/F Req #: [id number] Adm Physician: Ordered by: LILIANA GARCIA MD Report #: [id number] Location: ER Room/Bed: Procedure: [id number] DX/CH EST SINGLE (PORTABLE) Exam Date: Exam Time: REPORT STATUS: Signed CHEST SINGLE (PO RTABLE), 12/21/2018 12:00 AM Technique: CHEST SINGLE (PORTABLE) Comparison: 01/28/2018. Clinical history: Fever. High blood pressure. Chest pain. Fin dings: Stable appearance of the heart, mediastinum, lungs and pleural spaces. Mild calcification of the aortic arch, unchanged. Mild biapical pleural scarri ng. No pleural effusion or pneumothorax. Impression: 1. Lines/Tubes: No ne 2. No acute abnormality. No interval change. Signed by: Dr. Berta Reinoso M.D. on 12/21/2018 8:20 PM Dictated By: BHASKAR REINOSO MD, MD E lectronically Signed By: BHASKAR REINOSO MD, MD on 12/21/182019 Transcribed By: ROLO on 12/21/182019 COPY TO: LILIANA GARCIA MD [facility] 2017-12-22 11:00:0014.4[facility] NorthwestAyikzzJIGRYITFOOBQ8475-49-55 11:00:0055 [facility] NorthwestIdumkyYPQBGWLFMHUK8049-87-08 11:00:000.94[facility] NorthwestYejvtyAOTPSCMNVEWS1066-39-58 11:00:60739MXH[facility] NorthwestELECTROLYTES 2017-12-22 11:00:0023[facility] NorthwestEgbfqsEOJQEXOZNLQR9810-10-69 11:00:84115UQHCA [facility] NorthwestClsggzTRBSROFUEKDD0368-51-53 11:00:004.4[facility] DIIQHIFRCESJ6231-10-44 11:00:0018[facility] NorthwestIvztxyMXRMHIHRXQCB9180-58-50 11:00:17008FCHCA [facility] Healthcare NorthwestMvyzghITSYADPGCWSX2455-24-53 11:00:008.9[facility] NorthwestWllwjgHOAVEVMBAX4004-94-49 11:00:[address] [place], [place] [address]HEMATOLOGY 2017-12-22 11:00:[address] [place], [place] [address]WsvvhfHWIMVZVEFJ0804-74-70 11:00:[address] [place], [place] [address]FyrdzvPFMTMXSYTD1620-68-89 11:00:003.0[facility] JROGCPAKLW7147-68-29 11:00:000.3[facility] HospitalXdrnjiCKTWUWQJTB6394-09-72 11:00:000.7[facility] NorthwestOodcflQZVPOSMTOU1821-39-72 11:00:002.2[facility] HospitalOtgaojSWIOIJJKZE9414-51-51 11:00:000.5[facility] NorthwestHEMATOLOGY 2017-12-22 11:00:006.0[facility] NorthwestHyphmmPPIXJOBURC1566-87-99 11:00:006.7[facility] NorthwestXzpaerNIGMZUMMSO1778-68-32 11:00:0013.4[facility] OVTQQZOJSC5967-24-14 11:00:21736HUHCA [facility] NorthwestNlgaevMIATKSFAET8352-40-33 11:00:009.1[facility] HospitalDsamnxISYNRYWWXH7271-71-36 11:00:004.34[facility] NorthwestVjkabiKEITORNDXC5440-37-82 11:00:0012.9[facility]HEMATOLOGY 2017-12-22 11:00:0038.1[facility] HospitalNddougVGZMBXRQIX0842-87-52 11:00:0087.7 [facility] NorthwestZjkyunCJSHPMYMLR8470-02-76 11:00:00* Test Item Value Reference Range Interpretation Comments MCH (test code = MCH) 29.7 pg 27.0-31.0 [facility] NorthwestXpxixvXMIYOAIQFH7320-37-83 11:00:0033.8[facility] CHEM GAHGC2557-03-14 12:18:0083[facility] NorthwestCHEM KMOWA0572-68-27 12:18:0012.4[facility] NorthwestCHEM FWDQN5633-33-59 12:18:0051[facility] NorthwestCHEM VKDWW2090-17-20 12:18:79158BSHCA [facility] Healthcare NorthwestCHEM PANEL 2017-12-19 12:18:001.01[facility] NorthwestCHEM XLFWV4173-71-14 12:18:004.4[facility] NorthwestCHEM KPPBO1586-08-74 12:18:68037EJHCA [facility] Healthcare NorthwestCHEM KAGZL8506-50-98 12:18:0022[facility] NorthwestCHEM JTLKH3633-07-04 12:18:00 8.8[facility] NorthwestCHEM OZZWD3901-36-62 12:18:0019[facility] BLOOD BANK DPSMJLT5135-64-45 05:08:00Negative (12/18/17 12:08 AM)[facility] NorthwestCHEM VZALR3876-58-35 05:08:002.3[facility] HospitalCHEM PANEL 2017-12-18 05:08:0082[facility] NorthwestCHEM FPEIK3806-86-95 05:08:0021[facility] NorthwestCHEM NTJHL8819-04-48 05:08:41617DTHCA [facility] Healthcare NorthwestCHEM KZJGS3559-66-83 05:08:001.37[facility] NorthwestCHEM CWTVZ0576-68-63 05:08:00 30[facility] NorthwestCHEM LOCGO3392-13-27 05:08:004.4[facility] CHEM JNVNK6638-50-22 05:08:58749QIHCA [facility] Healthcare NorthwestCHEM GLGWP6450-87-25 05:08:0035[facility] NorthwestCHEM FWKSP4759-40-17 05:08:[address] [place], [place] [address]CHEM VGCUF6704-64-45 05:08:[address] [place], [place] [address]CHEM PANEL 2017-12-18 05:08:003.[address] [place], [place] [address]UuseuoPHOGKTPYWJ9494-36-11 05:08:00* Test Item Value Reference Range Interpretation Comments PTT (test code = PTT) 38.4 s 22.9-35.8 [facility] NorthwestGdnwocRLFXIXKTUA6960-31-04 05:08:00* Test Item Value Reference Range Interpretation Comments INR (test code = INR) 1.01 1 0.85-1.17 [facility] NorthwestYffryjMUSUQNFPCB9999-67-41 05:08:00* Test Item Value Reference Range Interpretation Comments PT (test code = PT) 13.3 s 12.0-14.7 [facility] NorthwestFuleuiAUMEGSTXDK2203-14-35 05:08:009.5[facility] FDAEBLCHPW3298-78-36 05:08:003.87[facility] NorthwestGdpvyuHZJLPIPCVO1260-33-59 05:08:37024TYHCA [facility] NorthwestSekfbeJJDWQMLRPP4703-19-62 05:08:007.0[facility] NorthwestTllrfdYCQJSPMCAN2175-14-44 05:08:0033.8[facility] NorthwestHEMATOLOGY 2017-12-18 05:08:[address] [place], [place] [address]SpjchtRWTZJZVZZY3224-42-46 05:08:0011.5 [facility] NorthwestObnhqeHMGXYXGIWB0986-82-08 05:08:[address] [place] [address] EQZOUWKULJ6408-62-30 05:08:[address] [place], [place] [address]TzkekpQKUYALVYUD6755-35-16 05:08:00* Test Item Value Reference Range Interpretation Comments MCH (test code = MCH) 29.7 pg 27.0-31.0 [facility] NorthwestAhezlnZJPDIMOVTB1655-04-96 05:08:[address] [place] [address] YMBOLLUEOU0290-18-91 05:08:0019.4[facility] NorthwestKfkaqdTBMKXPZUSW5704-33-77 05:08:007.9[facility] NorthwestXshlkkVSCYZMBRTD3535-88-76 05:08:004.6[facility] HospitalOyrwjlDZOFILAEUE8312-28-62 05:08:000.9[facility] NorthwestHEMATOLOGY 2017-12-18 05:08:006.4[facility] NorthwestBkemamSLMPWKZMKZ4607-56-48 05:08:001.8[facility] NorthwestTddjphRRBWVVPEUQ9216-09-30 05:08:[address] [place] [address] FABKEXTQBP0436-46-82 05:08:000.8[facility] NorthwestUexluvQZROHEGUMH6539-32-64 05:08:[address] [place], [place] [address]PARATHYROID ZGLBKWD7594-53-97 05:08:001.06[facility] NorthwestPARATHYROID FQBZWPA0344-93-01 05:08:001.06[facility] NorthwestBLOOD BANK PZHKLAG7644-04-67 15:15:00Product available (12/17/17 10:15 AM)[facility] NorthwestBLOOD BANK ERNRCDP1999-39-68 15:15:00Product available (12/17/17 10:15 AM)[facility] NorthwestURINE AND SZHIT9207-74-28 15:14:00 Negative (12/17/17 10:14 AM)[facility] NorthwestUR[facility] AND RDKTL8201-11-84 15:14:00Negative *NA*(12/17/17 10:14 AM)[facility] NorthwestUR[facility] AND STOOL 2017-12-17 15:14:00Yellow *NA*(12/17/17 10:14 AM)[facility] NorthwestUR[facility] AND ZVQER4993-97-56 15:14:00<1[facility] HospitalURINE AND TVGAC2472-67-75 15:14:00<1[facility] HospitalURINE AND PERAJ5508-15-47 15:14:00Negative (12/17/17 10:14 AM)[facility]UR[facility] AND OTDXG4207-09-73 15:14:00 Negative (12/17/17 10:14 AM)[facility] NorthwestUR[facility] AND BKZHJ2345-49-01 15:14:00* Test Item Value Reference Range Interpretation Comments UA pH (test code = UA pH) 7.0 1 5.0-8.0 [facility] AND OFNYO8759-41-71 15:14:00* Test Item Value Reference Range Interpretation Comments UA Spec Grav (test code = UA Spec Grav) 1.008 1 [facility] AND YCPXW0885-48-01 15:14:00Clear (12/17/17 10:14 AM) [facility] NorthwestOebzttAFSODULDBZ4100-25-31 14:15:000.38[facility] VNFWEZPKEV2916-16-25 10:12:001.0[facility] NorthwestVthhnsOMTSELAMMJ1629-88-27 10:12:000.8[facility] NorthwestKgqguxSEZYXMDKWV0897-00-[address] [place], [place] [address]BlsukxETMSAALCLA0375-51-79 10:12:001.6[facility] HospitalHEMATOLOGY 2017-12-16 10:12:004.9[facility] NorthwestTzrfsnRBRPFNJNJR6990-26-28 10:12:000.4[facility] NorthwestDniazjACKDVNFXGN4639-30-16 10:12:[address] [place] [address] GBISRIJLWH5882-63-09 10:12:0011.7[facility] NorthwestDmwdreEHDAWGKPQK1034-75-24 10:12:0062.9[facility] NorthwestIqkhmyJVKQYTNTVB3026-11-99 10:12:0019.7[facility] NorthwestSfecnzDBTVQLWQNG8819-62-33 10:12:[address] [place], [place] [address]HEMATOLOGY 2017-12-16 10:12:003.60[facility] NorthwestLaafadECRDHIVMQL3154-87-91 10:12:00* Test Item Value Reference Range Interpretation Comments MCH (test code = MCH) 30.0 pg 27.0-31.0 [facility] NorthwestItauxcKDKPFKYCPC6459-45-13 10:12:0010.8[facility] JNUYDQURVR1699-63-18 10:12:[address] [place], [place] [address]BoiwwfQNNVQXHOLC7008-88-89 10:12:[address] [place], [place] [address]GiitcmVSKKWZYPRI1757-48-91 10:12:88163LSHCA [facility] Healthcare NorthwestYqqrmlUNXOBVMSAP6382-74-11 10:12:0034.5[facility] NorthwestHEMATOLOGY 2017-12-16 10:12:[address] [place], [place] [address]FtjaemSPDXHYKGHV6933-05-89 10:12:[address] [place], [place] [address]NcrigoXRYOOUDRJO9107-76-47 19:02:[address] [place] [address] BLOOD BANK QBVWQOP6269-12-12 19:01:00Negative (12/15/17 2:01 PM)[facility] NorthwestCHEM OGXNM4451-30-83 19:01:001.0[facility] NorthwestHEMATOLOGY 2017-12-15 19:01:000.[address] [place], [place] [address]CT BRAIN WO [place] [address] Patient Name: FRANK PERRY MR #: [id number] : 1930 Age/Sex: 87/F Req #: [id number] Adm Physician: Ordered by: LILIANA GARCIA MD Report #: [id number] Location: Room/Bed: Procedure: [id number] CT/CT BRAIN WO Exam Date: 01/28 Exam Time: 0053 REPORT STATUS: Signed Hi story:Headache Comparison studies:Head CT on 01/05/2018 Technique: Axial images were obtained from the skull base to the vertex. Coronal and sagittal images reconstructed from the axial data. Intravenous contrast: None Find ings: Scalp/skull: No abnormalities. Extra-axial spaces: No mass es. No fluid collections. Brain sulci: Mildly prominent. Ventricles: Mil d compensatory dilatation. No hydrocephalus. Parenchyma: Follow-up hypod ensities in the supratentorial white matter are small vessel ischemic changes. No masses, hemorrhage, acute or chronic cortical vascular insults. Sella r/suprasellar region: No abnormalities. Craniocervical junction: Patent forame n magnum. No Chiari one malformation. Incidental findings: 3 mm prominen t perivascular space inferior to the right putamen Subtle atherosclerotic calc ifications in the carotid siphons . Impression: No acute abnormalities . No changes when compared to the head CT on 01/05/2018. Chronic findings: 1. Mild age-related volume loss. 2. Mild supratentorial white matter small vessel ischemic changes. Signed by: Dr. Hussain Baltazar M.D. on 2017 1:11 AM Dictated By: HUSSAIN BALTAZAR MD, MD Electronically Sign ed By: HUSSAIN BALTAZAR MD, MD on 01/28/18110 Transcribed By: ROLO on 0 01/28/18110 COPY TO: LILIANA GARCIA MD CHEST SINGLE (PORTABLE) [place] [address] Patient Name: FRANK PERRY MR #: [id number] : Age/Sex: 87/F Req #: [id number] Adm Physician: Ordered by: LILIANA GARCIA MD Report #: [id number] Location: ER Room/Bed: Procedure: [id number] DX/CHEST SINGLE (PORTABLE) Exam Date: 01/28/18 Exam Time: 57 REPORT STATUS: Signed CHEST SINGLE (PORTABLE), 01/28/2018 12:34 AM Technique: CHEST SING LE (PORTABLE) Comparison: 01/06/2018 Clinical history: Hypertension Find ings: Stable appearance of the heart, mediastinum, lungs and pleural spaces. M inimal linear left basilar scar or atelectasis. Impression: 1. Lines/Tu bes: None 2. No acute abnormality. Signed by: Dr Jesse Moscoso MD on 01/16 1:20 AM Dictated By: JESSE MOSCOSO MD 9 Transcribed By: ROLO on 01/28/18119 COPY TO: LILIANA GARCIA MD BARIUM ENEMA W/AIR C [place] [address] Patient Name: FRANK PERRY MR #: [id number] : 1930 Age/Sex: 87/F Req #: [id number] Adm Physician: Ordered by: PIA MCCANN MD Report #: [id number] Location: DX Room/Bed: Procedure: [id number] DX/BARIUM ENEMA W/AIR C Exam Date : 01/26/18 Exam Time: 0930 REPORT STATUS: Kinjal d PROCEDURE: X-RAY BARIUM ENEMA WITH AIR CONTRAST COMPARISON: None. INDICATIONS: Rectal pain. Constipation. Lower back pain. TECHNIQUE: Sco ut film was obtained. Barium was introduced via a rectal tube in a retrograde fashion until contrast was noted to reach the cecum. Air was then introduc ed to fully inflate the colon. Multiple spot images as well as overhead and bilateral decubitus images were obtained. FINDINGS: The early childhood education instructor film demon strates no acute abnormalities. There is no evidence of obstruction, mass, or intraluminal filling defects. No appendix is visualized. Multiple diverticuli are present in the descending and sigmoid colon. CONCLUSION: Di verticulosis of the descending and sigmoid colon. Otherwise, no acute radiogr aphic abnormality. Dictated by: Sepideh High M.D. on 01/26/2018 at 11:12 Electronically approved by: Sepideh High M.D. on 01/26/2018 at 11:12 Dictated By: SEPIDEH HIGH MD 11 Transcribed By: MELISSA on 01/26/181111 COPY TO: PIA MCCANN MD CHEST SINGLE (PORTABLE) [place] [address] Patient Name: FRANK PERRY MR #: [id number] : 1930 Age/Sex: 87/F Req #: [id number] Adm Physician: CALEB ALATORRE MD Ordered by: MICHELET RECIO MD Report #: [id number] Location: ICU Room/Bed: [place] [address] Procedure: [id number] DX/ CHEST SINGLE (PORTABLE) Exam Date: 01/06/18 Exam Fidel e: 0605 REPORT STATUS: Signed CHEST SINGLE (PORTABLE), 01/06/2018 5:00 A M Technique: CHEST SINGLE (PORTABLE) Comparison: 01/04/2018 Clinical his tory: Screening, altered mental status Findings: Stable appearance of the heart, mediastinum, lungs and pleural spaces given differences in technique. Minimal linear left basilar atelectasis or scar. Impression: 1. Lines/Tu bes: None 2. No acute abnormality. Signed by: Dr Jesse Moscoso MD on 12/18 6:51 AM Dictated By: JESSE MOSCOSO MD 0 Transcribed By: ROLO on 01/06/18650 COPY TO: MICHELET RECIO MD, ABI CT BRAIN WO [place] [id number] [place] [address] Patient Name: FRANK PERRY MR #: [id number] : 1930 Age/Sex: 87/F Req #: [id number] Adm Physician: CALEB ALATORRE MD Ordered by: CALEB ALATORRE MD Report #: [id number] Location: ICU Room/Bed: ICU [facility] Procedure: [id number] CT/C T BRAIN WO Exam Date: 01/05/18 Exam Time: 1550 REPORT STATUS: Signed Exam: Head CT without contrast History: Confusion a nd headache. Comparison studies: None Technique: Axial images were obt ained from the skull base to the vertex. Coronal and sagittal images reconstru cted from the axial data. Intravenous contrast: None Findings: Scalp : No abnormalities. Bones: No fractures, blastic or lytic lesions. Brain sulci: Appropriate for age. Ventricles: Normal in size and configuration. No h ydrocephalus. Extra-axial spaces: No masses, no fluid collection. Parenc hyma: Hypodensity in the right inferior insular region is compatible with a p rominent perivascular space. No masses, hemorrhage, acute or chronic vascula r insults. Sellar/suprasellar region: No abnormalities. Craniocervical ju nction: Patent foramen magnum. No Chiari one malformation. IMPRESSION: No acute intracranial abnormality. Preliminary report was pro vided by neuroradiology fellow, Dr.Thach Sarika MD on 01/05/2018 4:32 PM. I have reviewed the images and agree with the findings in the preliminary rep ort. Signed by: Dr. Froilan Jorge M.D. on 01/05/2018 7:39 PM Dicta kelle By: FROILAN JORGE MD 38 COPY TO: NANCY ALATORRE MD CT ABDOMEN/PELVIS W [place] [address] Patient Name: FRANK PERRY MR #: [id number] : 1930 Age/Sex: 87/F Req #: [id number] Adm Physician: Ordered by: ELIZABETH JAMES MD Report #: [id number] Location: ER Room/Bed: Procedure: [id number] CT/CT ABDOMEN/PELVIS W E xam Date: Exam Time: REPORT STATUS: Signed EXAM: CT ABDOMEN/PELVIS W DATE: 01/05/2018 12:59 AM INDICATION: Abdominal pain and vomiting COMPARISON: None TECHNIQUE: The abdomen and pelvis were scanned using a multidetector helical scanner. Coronal and sagittal reformati ons were obtained. Routine protocol performed. IV Contrast: 100 ml Isovue 37 0 Oral contrast was administered. FINDINGS: LOWER THORAX: No consolidat ions LIVER/BILIARY: Several hypodense liver lesions, most likely cysts. N o ductal dilatation. GALLBLADDER: Unremarkable SPLEEN: Normal spleen si ze with multiple tiny low-density lesions, indeterminate though statistically benign. PANCREAS: Unremarkable ADRENALS: No nodules KIDNEYS: Probable s ubcentimeter left renal cyst. No hydronephrosis. GI TRACT: Moderate gastric distention, but without evidence of obstructing lesion. Oral contrast passes through the stomach and into small bowel. Note is made of a normal appendix an d diverticulosis, most prominent of the sigmoid colon. VESSELS: Moderate atherosclerotic disease PERITONEUM/RETROPERITONEUM: No free air or fluid LYM PH NODES: No lymphadenopathy REPRODUCTIVE ORGANS/BLADDER: Unremarkable BONES: Multilevel degenerative changes and curvature of the spine. IMPRESS ION: 1. Moderate gastric dilation, but without evidence of obstruction. This c an be seen with gastroparesis. 2. Otherwise no acute abnormality. Kinjal d by: Dr Jesse Moscoso MD on 01/05/2018 3:37 AM Dictated By: JESSE SOLANO MD 6 Transcrib ed By: ROLO on 01/05/18336 COPY TO: ELIZABETH JAMES MD ABDOMEN ACUTE SERIES W/PA CXR [place] [address] Patient Name: FRANK PERRY MR #: [id number] : 1930 Age/Sex: 87/F Req #: [id number] Adm Physician: Ordered by: ELIZABETH JAMES MD Report #: [id number] Location: ER Room/Bed: Procedure: [id number] DX/ABDOMEN ACUTE SERIES W /PA CXR Exam Date: 01/04/18 Exam Time: 2350 RE PORT STATUS: Signed ABDOMEN ACUTE SERIES W/PA CXR Clinical history: Rect al pain Technique: AP view abdomen Comparison: 04/10/2017 chest radiograph Findings: Abdomen: Moderate gaseous distention of the stomach with air-fluid level. No dilated loops of small or large bowel or free air. 1 cm calcificat ion of the left pelvis could reflect a fibroid or less likely bladder calculus . Chest: Stable appearance of the chest. Hyperinflation without acute abn ormality. Aortic calcifications. Bones: Multilevel degenerative changes and curvature of the spine. Impression: 1. No acute pulmonary abnormality. 2. Moderate gastric distention with otherwise nonobstructive bowel gas diana rn. Signed by: Dr Jesse Moscoso MD on 01/05/2018 12:40 AM Dictate d By: JESSE MOSCOSO MD COPY TO: VENUS JAMES MD
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
== END | disposition home or self-care (01) ==
LOC: OR 07:18
PROVIDERS: ATTEND Internal Medicine Gastroenterology
DX: K20.9 Esophagitis, unspecified (principal); K29.60 Other gastritis without bleeding; K44.9 Diaphragmatic hernia without obstruction or gangrene; I10 Essential (primary) hypertension; I44.0 Atrioventricular block, first degree; Z88.6 Allergy status to analgesic agent; Z01.810 Encounter for preprocedural cardiovascular examination; Z01.812 Encounter for preprocedural laboratory examination; Z11.59 Encounter for screening for other viral diseases; Z79.82 Long term (current) use of aspirin
CPT/HCPCS: 36415; 43239; 85025; 87635; 93005; J2001; J2704

== ENCOUNTER 2020-03-15 11:22 | Emergency (ER) | payer MEDICARE, OTHER ==
[~2020-03-15] VITALS: Ht 160 cm; Wt 52.2 kg
[~2020-03-15 11:22] MED LIST changes: -LIDOCAINE HCL 2% LOCAL INJ 5 ML SDV VIAL INJ ONE; -PROPOFOL IV EMULSION 10 MG/ML 20 ML VIAL ONE
[2020-03-15] MEDS ORDERED: DEXAMETHASONE SOD PHOS 10 MG/1 ML VIAL IM ONE (12:00)
[2020-03-15] MEDS ORDERED: KETOROLAC TROMETHAMINE 60 MG/2 ML VIAL IM ONE (12:00)
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
[2020-03-15] MEDS ORDERED: KETOROLAC TROMETHAMINE 30 MG/ML VIAL ONE (12:03)
== END 2020-03-15 15:43 | disposition home or self-care (01) ==
LOC: ER 11:22
DX: M54.5 Low back pain (principal); G89.29 Other chronic pain; Z11.59 Encounter for screening for other viral diseases
CPT/HCPCS: 99283; J1100; J1885

== ENCOUNTER 2020-04-19 11:04 | Emergency (ER) | payer MEDICARE, OTHER ==
[~2020-04-19] VITALS: Ht 160 cm; Wt 52.2 kg
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
--- OUTSIDE RECORDS SUMMARY | 2020-04-19 11:49 | XMS REPORT | Continuity of Care Document ---
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 2020-01-31 08:58:00* Test Item Value Reference Range Interpretation Comments Eosinophils # (Auto) (test code = 711-2) 0.3 0.0-0.4 [facility] HospitalAutomated blood basophil count (count/volume)2020-01-31 08:58:00* Test Item Value Reference Range Interpretation Comments Basophils # (Auto) (test code = 704-7) 0.0 0.0-0.1 [facility] HospitalFluoroscopic procedure less than one hour wzuteiuu9282-18-40 08:58:00* Test Item Value Reference Range Interpretation Comments Absolute Immature Granulocyte (auto (inocente t code = Absolute Immature Granulocyte (auto) 0.07 0-0.1 [facility] HospitalInfluenza Virus Types A,B Antigen 2019-12-01 16:02:00* Test Item Value Reference Range Interpretation Comments Influenza Virus Types A,B Antigen (test code = 07425-6) NEGATIVE NEGATIVE [facility] Westodium Wzfyw8430-66-14 15:28:00* Test Item Value Reference Range Interpretation Comments Sodium Level (test code = 2951-2) 132 136-145 L [facility] HospitalPotassium Cexpa4083-95-29 15:28:00* Test Item Value Reference Range Interpretation Comments Potassium Level (test code = 2823-3) 4.2 3.5-5.1 [facility] HospitalChloride Vskxt3699-56-92 15:28:00* Test Item Value Reference Range Interpretation Comments Chloride Level (test code = 2075-0) 96 98-107 L [facility] HospitalCarbon Dioxide Nxupq0342-70-43 15:28:00* Test Item Value Reference Range Interpretation Comments Carbon Dioxide Level (test code = 2028-9) 27 22-29 [facility] HospitalAnion Ohi4392-89-27 15:28:00* Test Item Value Reference Range Interpretation Comments Anion Gap (test code = 21887-6) 13.2 8-16 [facility] HospitalBlood Urea Zhatxebe3664-24-49 15:28:00* Test Item Value Reference Range Interpretation Comments Blood Urea Nitrogen (test code = 3094-0) 17 7-26 [facility] HospitalCreatinine2020-03-15 15:28:00* Test Item Value Reference Range Interpretation Comments Creatinine (test code = 2160-0) 0.98 0.57-1.11 [facility] HospitalBUN/Creatinine Wksoe1567-08-75 15:28:00* Test Item Value Reference Range Interpretation Comments BUN/Creatinine Ratio (test code = 3097-3) 17 6-25 [facility] HospitalEstimat Glomerular Filtration Rate 2019-12-01 15:28:00* Test Item Value Reference Range Interpretation Comments Estimat Glomerular Filtration Rate (test code = 641097431) 54 >60 L Ranges were taken from the National Kidney Disease Education Program and the [facility] literature.Reference ranges:60 or greater: Deriyj48-99 ( for 3 consecutive months): Chronic kidney disease 15 or less: Kidney failureKell West Regional HospitalGlucose Avoxm4420-54-38 15:28:00* Test Item Value Reference Range Interpretation Comments Glucose Level (test code = XOV9594) 113 74-118 [facility] HospitalCalcium Ralfl5291-09-93 15:28:00* Test Item Value Reference Range Interpretation Comments Calcium Level (test code = 07793-1) 10.2 8.4-10.2 [facility] HospitalMagnesium Qwmri7965-60-34 15:28:00* Test Item Value Reference Range Interpretation Comments Magnesium Level (test code = 12489-4) 2.2 1.3-2.1 H [facility] HospitalTotal Lwhwnjmby5929-00-62 15:28:00* Test Item Value Reference Range Interpretation Comments Total Bilirubin (test code = 1975-2) 0.4 0.2-1.2 [facility] HospitalAspartate Amino Transf (AST/SGOT) 2019-12-01 15:28:00* Test Item Value Reference Range Interpretation Comments Aspartate Amino Transf (AST/SGOT) (test code = Aspartate Amino Transf (AST/SGOT)) 24 5-34 [facility] HospitalAlanine Aminotransferase (ALT/SGPT) 2019-12-01 15:28:00* Test Item Value Reference Range Interpretation Comments Alanine Aminotransferase (ALT/SGPT) (test code = 1742-6) 25 0-55 [facility] HospitalTotal Yjisahj6589-84-42 15:28:00* Test Item Value Reference Range Interpretation Comments Total Protein (test code = 2885-2) 8.5 6.5-8.1 H [facility] HospitalAlbumin2020-03-15 15:28:00* Test Item Value Reference Range Interpretation Comments Albumin (test code = 1751-7) 4.7 3.5-5.0 [facility] HospitalGlobulin2020-03-15 15:28:00* Test Item Value Reference Range Interpretation Comments Globulin (test code = 82759-9) 3.8 2.3-3.5 H [facility] HospitalAlbumin/Globulin Frbvc0381-13-62 15:28:00 * Test Item Value Reference Range Interpretation Comments Albumin/Globulin Ratio (test code = 1759-0) 1.2 0.8-2.0 [facility] HospitalAlkaline Uhoptvbrmel2113-73-09 15:28:00* Test Item Value Reference Range Interpretation Comments Alkaline Phosphatase (test code = 6768-6) 97 40-150 [facility] HospitalCreatine Qavuxd0043-23-90 15:28:00* Test Item Value Reference Range Interpretation Comments Creatine Kinase (test code = 2157-6) 54 29-168 [facility] HospitalCreatine Kinase PX5849-60-53 15:28:00* Test Item Value Reference Range Interpretation Comments Creatine Kinase MB (test code = 67148-4) 3.80 0-5.0 [facility] HospitalTroponin E8064-87-10 15:28:00* Test Item Value Reference Range Interpretation Comments Troponin I (test code = LUH3332) 0.014 0-0.300 [facility] HospitalLipase2020-03-15 15:28:00* Test Item Value Reference Range Interpretation Comments Lipase (test code = 3040-3) 35 8-78 [facility] HospitalInfluenza virus A and B antigen identification by mzdzgxuqarqigcneks5562-80-31 15:22:00* Test Item Value Reference Range Interpretation Comments Influenza Virus Types A,B Antigen (test code = 40484-9) NEGATIVE NEGATIVE [facility] HospitalProthrombin Lzhh2424-79-65 15:12:00* Test Item Value Reference Range Interpretation Comments Prothrombin Time (test code = 5902-2) 12.3 11.9-14.5 [facility] HospitalProthromb Time International Ratio 2019-12-01 15:12:00* Test Item Value Reference Range Interpretation Comments Prothromb Time International Ratio (test code = 6301-6) 0.87 Oral Anticoagulant Therapy INR Values:1. Low Intensity Therapy 1.5 - 2.02 . Moderate Intensity Therapy 2.0 - 3.03. High Intensity Therapy(1) 2.5 - 3. 54. High Intensity Therapy(2) 3.0 - 4.05. Panic Value INR > 5.0 [facility] HospitalActivated Partial Thromboplast Time 2019-12-01 15:12:00* Test Item Value Reference Range Interpretation Comments Activated Partial Thromboplast Time (test code = 72363-0) 26.9 23.8-35.5 [facility] HospitalUrine AZE5620-00-47 15:11:00* Test Item Value Reference Range Interpretation Comments Urine WBC (test code = 5821-4) 0-5 0-5 [facility] HospitalUrine ASZ1188-17-59 15:11:00* Test Item Value Reference Range Interpretation Comments Urine RBC (test code = 14668-6) 0-5 0-5 [facility] HospitalUrine Hwioqtif2324-01-04 15:11:00* Test Item Value Reference Range Interpretation Comments Urine Bacteria (test code = 32748-8) RARE NONE [facility] HospitalUrine Epithelial Rlbuj1880-21-59 15:11:00 * Test Item Value Reference Range Interpretation Comments Urine Epithelial Cells (test code = 07075-6) RARE NONE [facility] HospitalUrine Xfkam3824-19-17 15:06:00* Test Item Value Reference Range Interpretation Comments Urine Color (test code = 5778-6) YELLOW YELLOW [facility] HospitalUrine Qxnvldq2536-44-04 15:06:00* Test Item Value Reference Range Interpretation Comments Urine Clarity (test code = 98919-2) CLEAR CLEAR [facility] HospitalUrine Specific Mcqtzgk5890-59-90 15:06:00 * Test Item Value Reference Range Interpretation Comments Urine Specific [place] (test code = 5811-5) 1.020 1.010-1.02 5 [facility] HospitalUrine yT5254-31-36 15:06:00* Test Item Value Reference Range Interpretation Comments Urine pH (test code = 41051-0) 7.5 5-7 [facility] HospitalUrine Leukocyte Crltybvn8384-76-39 15:06:00* Test Item Value Reference Range Interpretation Comments Urine Leukocyte Esterase (test code = 5799-2) NEGATIVE NEGATIVE [facility] HospitalUrine Aqaxecd2678-39-32 15:06:00* Test Item Value Reference Range Interpretation Comments Urine Nitrite (test code = 52764-2) NEGATIVE NEGATIVE [facility] HospitalUrine Boaimby1462-60-35 15:06:00* Test Item Value Reference Range Interpretation Comments Urine Protein (test code = 5804-0) NEGATIVE NEGATIVE [facility] HospitalUrine Glucose (UA)2019-12-01 15:06:00* Test Item Value Reference Range Interpretation Comments Urine Glucose (UA) (test code = 2349-9) NEGATIVE NEGATIVE [facility] HospitalUrine Vqupdxk4382-18-60 15:06:00* Test Item Value Reference Range Interpretation Comments Urine Ketones (test code = 18621-9) NEGATIVE NEGATIVE [facility] HospitalUrine Ujidwonhemic0228-52-32 15:06:00* Test Item Value Reference Range Interpretation Comments Urine Urobilinogen (test code = 07009-2) 0.2 0.2-1 [facility] HospitalUrine Kjixdgzrx7804-74-04 15:06:00* Test Item Value Reference Range Interpretation Comments Urine Bilirubin (test code = 1978-6) NEGATIVE NEGATIVE [facility] HospitalUrine Ithpv9655-73-21 15:06:00* Test Item Value Reference Range Interpretation Comments Urine Blood (test code = 60304-0) NEGATIVE NEGATIVE [facility] HospitalWhite Blood Wkrog9104-53-87 15:00:00* Test Item Value Reference Range Interpretation Comments White Blood Count (test code = 6690-2) 10.68 4.8-10.8 [facility] HospitalRed Blood Dnucq3972-47-42 15:00:00* Test Item Value Reference Range Interpretation Comments Red Blood Count (test code = 789-8) 4.95 3.6-5.1 [facility] HospitalHemoglobin2020-03-15 15:00:00* Test Item Value Reference Range Interpretation Comments Hemoglobin (test code = 66609-8) 15.0 12.0-16.0 [facility] HospitalHematocrit2020-03-15 15:00:00* Test Item Value Reference Range Interpretation Comments Hematocrit (test code = 4544-3) 44.5 34.2-44.1 H [facility] HospitalMean Corpuscular Zkssaf9441-71-81 15:00:00* Test Item Value Reference Range Interpretation Comments Mean Corpuscular Volume (test code = 787-2) 89.9 81-99 [facility] HospitalMean Corpuscular Wmunkphjbd2476-04-82 15:00:00* Test Item Value Reference Range Interpretation Comments Mean Corpuscular Hemoglobin (test code = 785-6) 30.3 28-32 [facility] HospitalMean Corpuscular Hemoglobin Concent 2019-12-01 15:00:00* Test Item Value Reference Range Interpretation Comments Mean Corpuscular Hemoglobin Concent (test code = 786-4) 33.7 31-35 [facility] HospitalRed Cell Distribution Rxswd6534-26-02 15:00:00* Test Item Value Reference Range Interpretation Comments Red Cell Distribution Width (test code = 58743-4) 13.0 11.7 -14.4 [facility] HospitalPlatelet Ozfbm8321-72-85 15:00:00* Test Item Value Reference Range Interpretation Comments Platelet Count (test code = 777-3) 277 140-360 [facility] HospitalNeutrophils (%) (Auto)2019-12-01 15:00:00 * Test Item Value Reference Range Interpretation Comments Neutrophils (%) (Auto) (test code = 30459-9) 86.8 38.7-80.0 H [facility] HospitalLymphocytes (%) (Auto)2019-12-01 15:00:00 * Test Item Value Reference Range Interpretation Comments Lymphocytes (%) (Auto) (test code = 736-9) 7.3 18.0-39.1 L [facility] HospitalMonocytes (%) (Auto)2019-12-01 15:00:00* Test Item Value Reference Range Interpretation Comments Monocytes (%) (Auto) (test code = 5905-5) 2.2 4.4-11.3 L [facility] HospitalEosinophils (%) (Auto)2019-12-01 15:00:00 * Test Item Value Reference Range Interpretation Comments Eosinophils (%) (Auto) (test code = 713-8) 1.0 0.0-6.0 [facility] HospitalBasophils (%) (Auto)2019-12-01 15:00:00* Test Item Value Reference Range Interpretation Comments Basophils (%) (Auto) (test code = 706-2) 0.4 0.0-1.0 [facility] HospitalIM GRANULOCYTES %2019-12-01 15:00:00* Test Item Value Reference Range Interpretation Comments IM GRANULOCYTES % (test code = IM GRANULOCYTES %) 2.3 0.0- 1.0 H [facility] HospitalNeutrophils # (Auto)2019-12-01 15:00:00* Test Item Value Reference Range Interpretation Comments Neutrophils # (Auto) (test code = 751-8) 9.3 2.1-6.9 H [facility] HospitalLymphocytes # (Auto)2019-12-01 15:00:00* Test Item Value Reference Range Interpretation Comments Lymphocytes # (Auto) (test code = 82115-6) 0.8 1.0-3.2 L [facility] HospitalMonocytes # (Auto)2019-12-01 15:00:00* Test Item Value Reference Range Interpretation Comments Monocytes # (Auto) (test code = 742-7) 0.2 0.2-0.8 [facility] HospitalEosinophils # (Auto)2019-12-01 15:00:00* Test Item Value Reference Range Interpretation Comments Eosinophils # (Auto) (test code = 711-2) 0.1 0.0-0.4 [facility] HospitalBasophils # (Auto)2019-12-01 15:00:00* Test Item Value Reference Range Interpretation Comments Basophils # (Auto) (test code = 704-7) 0.0 0.0-0.1 [facility] HospitalAbsolute Immature Granulocyte (auto 2019-12-01 15:00:00* Test Item Value Reference Range Interpretation Comments Absolute Immature Granulocyte (auto (inocente t code = Absolute Immature Granulocyte (auto) 0.25 0-0.1 H [facility] HospitalCT [facility]BDOMEN/PELVIS CC0915-03-53 14:56:00 [place] [address] Patient Name: FRANK PERRY MR #: [id number] : 1930 Age/Sex: 89/F Req #: [id number] Adm Physician: Ordered by: LILIANA GARCIA MD Report #: [id number] Location: ER Room/Bed: Procedure: [id number] CT/CT ABDOMEN/PELVIS WO Exam Date: Exam Time: REPORT STATUS: Signed CT Abdomen and Pelv is without contrast INDICATION: UTI, back/abdominal pain, Stone Protoc ol Y TECHNIQUE: Thin collimation axial images obtained from the diaphrag m to the level of the pubic symphysis without nonionic intravenous contrast. Dose reduction techniques used: Automated exposure control, adjustment of t he mAs and/or kVp according to patient size, [...] 11/30 1505 COPY TO: LILIANA GARCIA MD Urine color determination 2019-12-01 14:26:00* Test Item Value Reference Range Interpretation Comments Urine Color (test code = 5778-6) YELLOW YELLOW [facility] HospitalUrine isliyqt8577-04-14 14:26:00* Test Item Value Reference Range Interpretation Comments Urine Clarity (test code = 48651-4) CLEAR CLEAR [facility]pecific gravity of Urine by Test strip 2019-12-01 14:26:00* Test Item Value Reference Range Interpretation Comments Urine Specific [place] (test code = 5811-5) 1.020 1.010-1.02 5 [facility] HospitalUrine pH measurement by automated test zdtjs0905-09-00 14:26:00* Test Item Value Reference Range Interpretation Comments Urine pH (test code = 87738-7) 7.5 5-7 [facility] HospitalUrine leukocyte esterase detection by gwidkbgg5394-07-19 14:26:00* Test Item Value Reference Range Interpretation Comments Urine Leukocyte Esterase (test code = 5799-2) NEGATIVE NEGATIVE [facility] HospitalUrine nitrite mnqhpmstc0415-02-74 14:26:00* Test Item Value Reference Range Interpretation Comments Urine Nitrite (test code = 69774-3) NEGATIVE NEGATIVE [facility] HospitalUrine protein measurement by test strip (mass/volume)2019-12-01 14:26:00* Test Item Value Reference Range Interpretation Comments Urine Protein (test code = 5804-0) NEGATIVE NEGATIVE [facility] HospitalUrine glucose ckccireee4994-51-88 14:26:00* Test Item Value Reference Range Interpretation Comments Urine Glucose (UA) (test code = 2349-9) NEGATIVE NEGATIVE [facility] HospitalUrine ketones detection by automated test tscnc5724-72-15 14:26:00* Test Item Value Reference Range Interpretation Comments Urine Ketones (test code = 34251-0) NEGATIVE NEGATIVE [facility] HospitalUrine urobilinogen measurement by test strip (mass/volume)2019-12-01 14:26:00* Test Item Value Reference Range Interpretation Comments Urine Urobilinogen (test code = 97789-7) 0.2 0.2-1 [facility] HospitalUrine total bilirubin measurement (mass/volume)2019-12-01 14:26:00* Test Item Value Reference Range Interpretation Comments Urine Bilirubin (test code = 1978-6) NEGATIVE NEGATIVE [facility] HospitalUrine erythrocytes tbqdzkawa8331-99-83 14:26:00* Test Item Value Reference Range Interpretation Comments Urine Blood (test code = 55012-8) NEGATIVE NEGATIVE [facility] HospitalAutomated urine sediment leukocyte count by microscopy (number/high power field)2019-12-01 14:26:00* Test Item Value Reference Range Interpretation Comments Urine WBC (test code = 5821-4) 0-5 0-5 [facility] HospitalErythrocytes detection in urine sediment by light rijxpignpa7619-63-20 14:26:00* Test Item Value Reference Range Interpretation Comments Urine RBC (test code = 35997-7) 0-5 0-5 [facility] HospitalBacteria detection in urine sediment by light mjplaqdrcd8402-15-81 14:26:00* Test Item Value Reference Range Interpretation Comments Urine Bacteria (test code = 07152-5) RARE NONE [facility] HospitalEpithelial cells detection in urine sediment by light iyvlgrgols6757-51-04 14:26:00* Test Item Value Reference Range Interpretation Comments Urine Epithelial Cells (test code = 80990-4) RARE NONE [facility] HospitalFluoroscopic procedure less than one hour iuxssgcw6182-43-36 14:23:00* Test Item Value Reference Range Interpretation Comments Differential Total Cells Counted (test code = Differmary tial Total Cells Counted) 100 [facility] HospitalManual blood neutrophils/100 leukocytes 2019-12-01 14:23:00* Test Item Value Reference Range Interpretation Comments Neutrophils % (Manual) (test code = 85192-3) 92 40-74 [facility] blood lymphocytes/100 leukocytes 2019-12-01 14:23:00* Test Item Value Reference Range Interpretation Comments Lymphocytes % (Manual) (test code = 737-7) 7 19-48 [facility] blood monocytes/100 leukocytes 2019-12-01 14:23:00* Test Item Value Reference Range Interpretation Comments Monocytes % (Manual) (test code = 744-3) 1 3.4-9.0 [facility] HospitalBlood platelets count by estimate (number/volume)2019-12-01 14:23:00* Test Item Value Reference Range Interpretation Comments Platelet Estimate (test code = 48878-4) ADEQUATE [facility] HospitalPlatelet igsediceqk6849-37-12 14:23:00* Test Item Value Reference Range Interpretation Comments Platelet Morphology Comment (test code = 99620-8) NORMAL [facility] HospitalRBC meriujnqem2768-90-88 14:23:00* Test Item Value Reference Range Interpretation Comments Red Cell Morphology Comment (test code = 6742-1) NORMAL [facility] HospitalProthrombin time (PT) in platelet poor plasma by coagulation eynww7680-26-59 14:23:00* Test Item Value Reference Range Interpretation Comments Prothrombin Time (test code = 5902-2) 12.3 11.9-14.5 [facility] HospitalINR in Platelet poor plasma by Coagulation tjgxr2962-08-37 14:23:00* Test Item Value Reference Range Interpretation Comments Prothromb Time International Ratio (test code = 6301-6) 0.87 Oral Anticoagulant Therapy INR Values:1. Low Intensity Therapy 1.5 - 2.02 . Moderate Intensity Therapy 2.0 - 3.03. High Intensity Therapy(1) 2.5 - 3. 54. High Intensity Therapy(2) 3.0 - 4.05. Panic Value INR > 5.0 [facility] HospitalActivated partial thromboplastin time (aPTT) in platelet poor plasma by coagulation mdlrm8152-61-17 14:23:00* Test Item Value Reference Range Interpretation Comments Activated Partial Thromboplast Time (test code = 10721-6) 26.9 23.8-35.5 [facility]esterum or plasma sodium measurement (moles/volume)2019-12-01 14:23:00* Test Item Value Reference Range Interpretation Comments Sodium Level (test code = 2951-2) 132 136-145 [facility] Westerum or plasma potassium measurement (moles/volume)2019-12-01 14:23:00* Test Item Value Reference Range Interpretation Comments Potassium Level (test code = 2823-3) 4.2 3.5-5.1 [facility]esterum or plasma chloride measurement (moles/volume)2019-12-01 14:23:00* Test Item Value Reference Range Interpretation Comments Chloride Level (test code = 2075-0) 96 98-107 [facility] Westerum or plasma carbon dioxide, total measurement (moles/volume)2019-12-01 14:23:00* Test Item Value Reference Range Interpretation Comments Carbon Dioxide Level (test code = 2028-9) 27 22-29 [facility] or plasma anion obf9206-65-59 14:23:00* Test Item Value Reference Range Interpretation Comments Anion Gap (test code = 16156-1) 13.2 8-16 [facility] or plasma urea nitrogen measurement (mass/volume)2019-12-01 14:23:00* Test Item Value Reference Range Interpretation Comments Blood Urea Nitrogen (test code = 3094-0) 17 7-26 [facility]esterum or plasma creatinine measurement (mass/volume)2019-12-01 14:23:00* Test Item Value Reference Range Interpretation Comments Creatinine (test code = 2160-0) 0.98 0.57-1.11 [facility] or plasma urea nitrogen/creatinine mass qntkf3199-59-07 14:23:00* Test Item Value Reference Range Interpretation Comments BUN/Creatinine Ratio (test code = 3097-3) 17 6- [facility] HospitalEstimated glomerular filtration rate (GFR) wummfgmdowlny7606-19-14 14:23:00* Test Item Value Reference Range Interpretation Comments Estimat Glomerular Filtration Rate (test code = 006145898) 54 >60 Ranges were taken from the National Kidney Disease Education Program and the [facility] literature.Reference ranges:60 or greater: Xmgszn10-89 ( for 3 consecutive months): Chronic kidney disease 15 or less: Kidney failureKell West Regional HospitalGlucose rrnireiqhbc1247-88-58 14:23:00* Test Item Value Reference Range Interpretation Comments Glucose Level (test code = AXG2748) 113 74-118 [facility] or plasma calcium measurement (mass/volume)2019-12-01 14:23:00* Test Item Value Reference Range Interpretation Comments Calcium Level (test code = 17235-8) 10.2 8.4-10.2 [facility] or plasma magnesium measurement (mass/volume)2019-12-01 14:23:00* Test Item Value Reference Range Interpretation Comments Magnesium Level (test code = 06682-8) 2.2 1.3-2.1 [facility] or plasma total bilirubin measurement (mass/volume)2019-12-01 14:23:00* Test Item Value Reference Range Interpretation Comments Total Bilirubin (test code = 1975-2) 0.4 0.2-1.2 [facility] HospitalFluoroscopic procedure less than one hour oumfiqay3735-38-29 14:23:00* Test Item Value Reference Range Interpretation Comments Aspartate Amino Transf (AST/SGOT) (test code = Aspartate Amino Transf (AST/SGOT)) 24 5-34 [facility] or plasma alanine aminotransferase measurement (enzymatic activity/volume)2019-12-01 14:23:00* Test Item Value Reference Range Interpretation Comments Alanine Aminotransferase (ALT/SGPT) (test code = 1742-6) 25 0-55 [facility] or plasma protein measurement (mass/volume)2019-12-01 14:23:00* Test Item Value Reference Range Interpretation Comments Total Protein (test code = 2885-2) 8.5 6.5-8.1 [facility] or plasma albumin measurement (mass/volume)2019-12-01 14:23:00* Test Item Value Reference Range Interpretation Comments Albumin (test code = 1751-7) 4.7 3.5-5.0 [facility] HospitalPlasma globulin measurement (mass/volume) 2019-12-01 14:23:00* Test Item Value Reference Range Interpretation Comments Globulin (test code = 17880-3) 3.8 2.3-3.5 [facility] or plasma albumin/globulin mass jxxsk9874-92-43 14:23:00* Test Item Value Reference Range Interpretation Comments Albumin/Globulin Ratio (test code = 1759-0) 1.2 0.8-2.0 [facility] or plasma alkaline phosphatase measurement (enzymatic activity/volume)2019-12-01 14:23:00* Test Item Value Reference Range Interpretation Comments Alkaline Phosphatase (test code = 6768-6) 97 40-150 [facility] HospitalBNP Yrm-aWqq5357-20-15 14:23:00* Test Item Value Reference Range Interpretation Comments B-Type Natriuretic Peptide (test code = 32230-2) 148.2 0-100 [facility] or plasma creatine kinase measurement (enzymatic activity/volume)2019-12-01 14:23:00* Test Item Value Reference Range Interpretation Comments Creatine Kinase (test code = 2157-6) 54 29-168 [facility] or plasma creatine kinase MB measurement (mass/volume)2019-12-01 14:23:00* Test Item Value Reference Range Interpretation Comments Creatine Kinase MB (test code = 80530-1) 3.80 0-5.0 [facility] HospitalTroponin I measurement by highly sensitive enzyme pmitchaooeu4624-33-92 14:23:00* Test Item Value Reference Range Interpretation Comments Troponin I (test code = 03195-5) 0.014 0-0.300 [facility] or plasma lipase measurement (enzymatic activity/volume)2019-12-01 14:23:00* Test Item Value Reference Range Interpretation Comments Lipase (test code = 3040-3) 35 8-78 [facility] HospitalCHEST 2 JAHME6013-55-73 12:06:00 [facility] [address] [place] [address] Patient Name: FRANK PERRY MR #: [id number] : 1930 Age/Sex: 89/F Req #: [id number] Adm Physician: Ordered by: LILIANA GARCIA MD Report #: [id number] Location: ER Room/Bed: Procedure: [id number] DX/CH EST 2 VIEWS Exam Date: 11/30/19 Exam Time: 1020 REPORT STATUS: Signed EXAMINATION : PA and lateral views of the chest. COMPARISON: Portable chest 12/21/2018, C T abdomen and pelvis 10/18/2019 CLINICAL HISTORY: Concern for pneumonia DISCUSSION: Lines/tubes: None. Lungs: Increased lucency in th e upper lungs, suggests COPD. Mild bilateral apical [...] Comments B-Type Natriuretic Peptide (test code = 67031-7) 382.2 0-100 [facility] HospitalB-Type Natriuretic Scvtdlj6271-79-07 11:04:00* Test Item Value Reference Range Interpretation Comments B-Type Natriuretic Peptide (test code = 72099-1) 382.2 0-100 H [facility] HospitalCreatine Kinase JV0649-15-86 11:03:00* Test Item Value Reference Range Interpretation Comments Creatine Kinase MB (test code = 82152-0) 4.30 0-5.0 [facility] HospitalTroponin [id number] 11:03:00* Test Item Value Reference Range Interpretation Comments Troponin I (test code = ZBJ7596) 0.010 0-0.300 [facility] HospitalProthrombin Xecu3938-48-68 10:57:00* Test Item Value Reference Range Interpretation Comments Prothrombin Time (test code = 5902-2) 12.4 11.9-14.5 [facility] HospitalProthromb Time International Ratio 2019-11-30 10:57:00* Test Item Value Reference Range Interpretation Comments Prothromb Time International Ratio (test code = 6301-6) 0.88 Oral Anticoagulant Therapy INR Values:1. Low Intensity Therapy 1.5 - 2.02 . Moderate Intensity Therapy 2.0 - 3.03. High Intensity Therapy(1) 2.5 - 3. 54. High Intensity Therapy(2) 3.0 - 4.05. Panic Value INR > 5.0 [facility] HospitalActivated Partial Thromboplast Time 2019-11-30 10:57:00* Test Item Value Reference Range Interpretation Comments Activated Partial Thromboplast Time (test code = 15225-4) 26.4 23.8-35.5 [facility] Westodium Bmskm8534-16-17 10:57:00* Test Item Value Reference Range Interpretation Comments Sodium Level (test code = 2951-2) 131 136-145 L [facility] HospitalPotassium Ieylz5038-84-90 10:57:00* Test Item Value Reference Range Interpretation Comments Potassium Level (test code = 2823-3) 4.3 3.5-5.1 [facility] HospitalChloride Iihej8307-16-15 10:57:00* Test Item Value Reference Range Interpretation Comments Chloride Level (test code = 2075-0) 97 98-107 L [facility] HospitalCarbon Dioxide Vpmed3438-24-49 10:57:00* Test Item Value Reference Range Interpretation Comments Carbon Dioxide Level (test code = 2028-9) 28 22-29 [facility] HospitalAnion Xgk3287-36-75 10:57:00* Test Item Value Reference Range Interpretation Comments Anion Gap (test code = 39290-6) 10.3 8-16 [facility] HospitalBlood Urea Pfethdkn9717-64-16 10:57:00* Test Item Value Reference Range Interpretation Comments Blood Urea Nitrogen (test code = 3094-0) 18 7-26 [facility] HospitalCreatinine2020-03-14 10:57:00* Test Item Value Reference Range Interpretation Comments Creatinine (test code = 2160-0) 1.00 0.57-1.11 [facility] HospitalBUN/Creatinine Jcdel4325-62-22 10:57:00* Test Item Value Reference Range Interpretation Comments BUN/Creatinine Ratio (test code = 3097-3) 18 6-25 [facility] HospitalEstimat Glomerular Filtration Rate 2019-11-30 10:57:00* Test Item Value Reference Range Interpretation Comments Estimat Glomerular Filtration Rate (test code = 708270083) 52 >60 L Ranges were taken from the National Kidney Disease Education Program and the [facility] Kidney Foundation literature.Reference ranges:60 or greater: Clabvb32-30 ( for 3 consecutive months): Chronic kidney disease 15 or less: Kidney failureKell [facility] Regional HospitalGlucose Rifni7461-46-76 10:57:00* Test Item Value Reference Range Interpretation Comments Glucose Level (test code = AOX0520) 94 74-118 [facility] HospitalCalcium Xaumh8884-42-79 10:57:00* Test Item Value Reference Range Interpretation Comments Calcium Level (test code = 61877-0) 10.1 8.4-10.2 [facility] HospitalMagnesium Ziblu2784-80-81 10:57:00* Test Item Value Reference Range Interpretation Comments Magnesium Level (test code = 48073-2) 2.1 1.3-2.1 [facility] HospitalTotal Aezoutxcf3864-88-92 10:57:00* Test Item Value Reference Range Interpretation Comments Total Bilirubin (test code = 1975-2) 0.4 0.2-1.2 [facility] HospitalAspartate Amino Transf (AST/SGOT) 2019-11-30 10:57:00* Test Item Value Reference Range Interpretation Comments Aspartate Amino Transf (AST/SGOT) (test code = Aspartate Amino Transf (AST/SGOT)) 22 5-34 [facility] HospitalAlanine Aminotransferase (ALT/SGPT) 2019-11-30 10:57:00* Test Item Value Reference Range Interpretation Comments Alanine Aminotransferase (ALT/SGPT) (test code = 1742-6) 18 0-55 [facility] HospitalTotal Umupwmo8142-05-39 10:57:00* Test Item Value Reference Range Interpretation Comments Total Protein (test code = 2885-2) 7.4 6.5-8.1 [facility] HospitalAlbumin2020-03-14 10:57:00* Test Item Value Reference Range Interpretation Comments Albumin (test code = 1751-7) 4.2 3.5-5.0 [facility] HospitalGlobulin2020-03-14 10:57:00* Test Item Value Reference Range Interpretation Comments Globulin (test code = 82483-7) 3.2 2.3-3.5 [facility] HospitalAlbumin/Globulin Vxszz4737-40-77 10:57:00 * Test Item Value Reference Range Interpretation Comments Albumin/Globulin Ratio (test code = 1759-0) 1.3 0.8-2.0 [facility] HospitalAlkaline Kraqecyoepz8488-88-17 10:57:00* Test Item Value Reference Range Interpretation Comments Alkaline Phosphatase (test code = 6768-6) 79 40-150 [facility] HospitalCreatine Qwhsrx3254-58-45 10:57:00* Test Item Value Reference Range Interpretation Comments Creatine Kinase (test code = 2157-6) 77 29-168 [facility] HospitalUrine PWI7677-15-12 10:56:00* Test Item Value Reference Range Interpretation Comments Urine WBC (test code = 5821-4) 11-20 0-5 H [facility] HospitalUrine SOI2095-94-09 10:56:00* Test Item Value Reference Range Interpretation Comments Urine RBC (test code = 75512-2) 6-10 0-5 H [facility] HospitalUrine Jhbcqzjb1693-88-57 10:56:00* Test Item Value Reference Range Interpretation Comments Urine Bacteria (test code = 44373-9) RARE NONE [facility] HospitalUrine Epithelial Ivxmh5538-35-34 10:56:00 * Test Item Value Reference Range Interpretation Comments Urine Epithelial Cells (test code = 56938-5) FEW NONE [facility] HospitalCT BRAIN TN4907-97-35 10:53:00 [facility] [address] [place] [address] Patient Name: FRANK PERRY MR #: [id number] : 1930 Age/Sex: 89/F Req #: [id number] Adm Physician: Ordered by: LILIANA GARCIA MD Report #: [id number] Location: Room/Bed: Procedure: [id number] CT/CT BRAIN WO Exam Date: 11/30/19 Exam [...] 11/30/2019 10:56 AM D ictated By: JAILYN STEPHENS MD 105 Transcribed By: ROLO on 11/30/19 1056 COPY TO: LILIANA GARCIA MD Urine Lwxun5246-27-05 10:45:00* Test Item Value Reference Range Interpretation Comments Urine Color (test code = 5778-6) YELLOW YELLOW [facility] HospitalUrine Tfwqbim1795-43-40 10:45:00* Test Item Value Reference Range Interpretation Comments Urine Clarity (test code = 51791-8) CLEAR CLEAR [facility] HospitalUrine Specific Rpajjdb3446-91-81 10:45:00 * Test Item Value Reference Range Interpretation Comments Urine Specific [place] (test code = 5811-5) 1.025 1.010-1.02 5 [facility] HospitalUrine tL8752-15-60 10:45:00* Test Item Value Reference Range Interpretation Comments Urine pH (test code = 52892-0) 7 5-7 [facility] HospitalUrine Leukocyte Kmhigszu5395-13-65 10:45:00* Test Item Value Reference Range Interpretation Comments Urine Leukocyte Esterase (test code = 5799-2) TRACE NEGATIVE H [facility] HospitalUrine Fssgruu1127-46-82 10:45:00* Test Item Value Reference Range Interpretation Comments Urine Nitrite (test code = 11628-0) NEGATIVE NEGATIVE [facility] HospitalUrine Udhoqnb7755-23-96 10:45:00* Test Item Value Reference Range Interpretation Comments Urine Protein (test code = 5804-0) NEGATIVE NEGATIVE [facility] HospitalUrine Glucose (UA)2019-11-30 10:45:00* Test Item Value Reference Range Interpretation Comments Urine Glucose (UA) (test code = 2349-9) NEGATIVE NEGATIVE [facility] HospitalUrine Vficgap6168-35-30 10:45:00* Test Item Value Reference Range Interpretation Comments Urine Ketones (test code = 00018-5) NEGATIVE NEGATIVE [facility] HospitalUrine Obntdsfrdbuz1510-11-61 10:45:00* Test Item Value Reference Range Interpretation Comments Urine Urobilinogen (test code = 14380-3) 0.2 0.2-1 [facility] HospitalUrine Ymnfhjtzr9345-79-44 10:45:00* Test Item Value Reference Range Interpretation Comments Urine Bilirubin (test code = 1978-6) NEGATIVE NEGATIVE [facility] HospitalUrine Kvvnm3513-26-60 10:45:00* Test Item Value Reference Range Interpretation Comments Urine Blood (test code = 60129-8) TRACE NEGATIVE H [facility] HospitalWhite Blood Kyyzl4328-36-65 10:41:00* Test Item Value Reference Range Interpretation Comments White Blood Count (test code = 6690-2) 13.01 4.8-10.8 H [facility] HospitalRed Blood Kxcsp8428-55-99 10:41:00* Test Item Value Reference Range Interpretation Comments Red Blood Count (test code = 789-8) 4.45 3.6-5.1 [facility] HospitalHemoglobin2020-03-14 10:41:00* Test Item Value Reference Range Interpretation Comments Hemoglobin (test code = 50592-1) 13.4 12.0-16.0 [facility] HospitalHematocrit2020-03-14 10:41:00* Test Item Value Reference Range Interpretation Comments Hematocrit (test code = 4544-3) 39.9 34.2-44.1 [facility] HospitalMean Corpuscular Mntqff3761-13-78 10:41:00* Test Item Value Reference Range Interpretation Comments Mean Corpuscular Volume (test code = 787-2) 89.7 81-99 [facility] HospitalMean Corpuscular Ujfjvibtkf8009-43-12 10:41:00* Test Item Value Reference Range Interpretation Comments Mean Corpuscular Hemoglobin (test code = 785-6) 30.1 28-32 [facility] HospitalMean Corpuscular Hemoglobin Concent 2019-11-30 10:41:00* Test Item Value Reference Range Interpretation Comments Mean Corpuscular Hemoglobin Concent (test code = 786-4) 33.6 31-35 [facility] HospitalRed Cell Distribution Xghml0110-91-31 10:41:00* Test Item Value Reference Range Interpretation Comments Red Cell Distribution Width (test code = 23287-2) 13.1 11.7 -14.4 [facility] HospitalPlatelet Khire8254-79-45 10:41:00* Test Item Value Reference Range Interpretation Comments Platelet Count (test code = 777-3) 257 140-360 [facility] HospitalNeutrophils (%) (Auto)2019-11-30 10:41:00 * Test Item Value Reference Range Interpretation Comments Neutrophils (%) (Auto) (test code = 13057-0) 87.3 38.7-80.0 H [facility] HospitalLymphocytes (%) (Auto)2019-11-30 10:41:00 * Test Item Value Reference Range Interpretation Comments Lymphocytes (%) (Auto) (test code = 736-9) 6.7 18.0-39.1 L [facility] HospitalMonocytes (%) (Auto)2019-11-30 10:41:00* Test Item Value Reference Range Interpretation Comments Monocytes (%) (Auto) (test code = 5905-5) 5.1 4.4-11.3 [facility] HospitalEosinophils (%) (Auto)2019-11-30 10:41:00 * Test Item Value Reference Range Interpretation Comments Eosinophils (%) (Auto) (test code = 713-8) 0.0 0.0-6.0 [facility] HospitalBasophils (%) (Auto)2019-11-30 10:41:00* Test Item Value Reference Range Interpretation Comments Basophils (%) (Auto) (test code = 706-2) 0.1 0.0-1.0 [facility] HospitalIM GRANULOCYTES %2019-11-30 10:41:00* Test Item Value Reference Range Interpretation Comments IM GRANULOCYTES % (test code = IM GRANULOCYTES %) 0.8 0.0- 1.0 [facility] HospitalNeutrophils # (Auto)2019-11-30 10:41:00* Test Item Value Reference Range Interpretation Comments Neutrophils # (Auto) (test code = 751-8) 11.4 2.1-6.9 H [facility] HospitalLymphocytes # (Auto)2019-11-30 10:41:00* Test Item Value Reference Range Interpretation Comments Lymphocytes # (Auto) (test code = 04524-0) 0.9 1.0-3.2 L [facility] HospitalMonocytes # (Auto)2019-11-30 10:41:00* Test Item Value Reference Range Interpretation Comments Monocytes # (Auto) (test code = 742-7) 0.7 0.2-0.8 [facility] HospitalEosinophils # (Auto)2019-11-30 10:41:00* Test Item Value Reference Range Interpretation Comments Eosinophils # (Auto) (test code = 711-2) 0.0 0.0-0.4 [facility] HospitalBasophils # (Auto)2019-11-30 10:41:00* Test Item Value Reference Range Interpretation Comments Basophils # (Auto) (test code = 704-7) 0.0 0.0-0.1 [facility] HospitalAbsolute Immature Granulocyte (auto 2019-11-30 10:41:00* Test Item Value Reference Range Interpretation Comments Absolute Immature Granulocyte (auto (inocente t code = Absolute Immature Granulocyte (auto) 0.11 0-0.1 H [facility] HospitalUrine Sqfixym4723-33-03 09:40:00* Test Item Value Reference Range Interpretation Comments Urine Culture (test code = 630-4) No Result Data Provided [facility] HospitalUrine Ihmjufh6956-36-90 09:40:00* Test Item Value Reference Range Interpretation Comments Urine Culture (test code = 630-4) No Result Data Provided [facility] HospitalCreatine Kinase QG1526-19-87 15:26:00* Test Item Value Reference Range Interpretation Comments Creatine Kinase MB (test code = 37822-8) 3.70 0-5.0 [facility] HospitalTroponin O5010-18-49 15:26:00* Test Item Value Reference Range Interpretation Comments Troponin I (test code = MCX8037) 0.017 0-0.300 [facility]odium Kndgx3208-56-23 14:52:00* Test Item Value Reference Range Interpretation Comments Sodium Level (test code = 2951-2) 135 136-145 L [facility] HospitalPotassium Yhmiw0021-13-73 14:52:00* Test Item Value Reference Range Interpretation Comments Potassium Level (test code = 2823-3) 4.1 3.5-5.1 [facility] HospitalChloride Wxyca3806-79-38 14:52:00* Test Item Value Reference Range Interpretation Comments Chloride Level (test code = 2075-0) 97 98-107 L [facility] HospitalCarbon Dioxide Rewse7799-29-43 14:52:00* Test Item Value Reference Range Interpretation Comments Carbon Dioxide Level (test code = 2028-9) 27 22-29 [facility] HospitalAnion Nix6437-68-17 14:52:00* Test Item Value Reference Range Interpretation Comments Anion Gap (test code = 78463-3) 15.1 8-16 [facility] HospitalBlood Urea Qcscnfiy5981-70-35 14:52:00* Test Item Value Reference Range Interpretation Comments Blood Urea Nitrogen (test code = 3094-0) 16 7-26 [facility] HospitalCreatinine2020-01-31 14:52:00* Test Item Value Reference Range Interpretation Comments Creatinine (test code = 2160-0) 0.89 0.57-1.11 [facility] HospitalBUN/Creatinine Myxrp8198-15-78 14:52:00* Test Item Value Reference Range Interpretation Comments BUN/Creatinine Ratio (test code = 3097-3) 18 6-25 [facility] HospitalEstimat Glomerular Filtration Rate 2019-10-18 14:52:00* Test Item Value Reference Range Interpretation Comments Estimat Glomerular Filtration Rate (test code = 166368446) 60 >60 Ranges were taken from the National Kidney Disease Education Program and the [facility] literature.Reference ranges:60 or greater: Zphbli89-47 ( for 3 consecutive months): Chronic kidney disease 15 or less: Kidney failureKell West Regional HospitalGlucose Bwbym2531-24-93 14:52:00* Test Item Value Reference Range Interpretation Comments Glucose Level (test code = UYR7512) 101 74-118 [facility] HospitalCalcium Ewtyd5214-42-55 14:52:00* Test Item Value Reference Range Interpretation Comments Calcium Level (test code = 85616-8) 10.1 8.4-10.2 [facility] HospitalMagnesium Zskxb7192-36-80 14:52:00* Test Item Value Reference Range Interpretation Comments Magnesium Level (test code = 12169-7) 2.0 1.3-2.1 [facility] HospitalTotal Lgjlmwyss8138-64-56 14:52:00* Test Item Value Reference Range Interpretation Comments Total Bilirubin (test code = 1975-2) 0.4 0.2-1.2 [facility] HospitalAspartate Amino Transf (AST/SGOT) 2019-10-18 14:52:00* Test Item Value Reference Range Interpretation Comments Aspartate Amino Transf (AST/SGOT) (test code = Aspartate Amino Transf (AST/SGOT)) 19 5-34 [facility] HospitalAlanine Aminotransferase (ALT/SGPT) 2019-10-18 14:52:00* Test Item Value Reference Range Interpretation Comments Alanine Aminotransferase (ALT/SGPT) (test code = 1742-6) 16 0-55 [facility] HospitalTotal Ywsxiur8904-25-65 14:52:00* Test Item Value Reference Range Interpretation Comments Total Protein (test code = 2885-2) 7.3 6.5-8.1 [facility] HospitalAlbumin2020-01-31 14:52:00* Test Item Value Reference Range Interpretation Comments Albumin (test code = 1751-7) 3.9 3.5-5.0 [facility] HospitalGlobulin2020-01-31 14:52:00* Test Item Value Reference Range Interpretation Comments Globulin (test code = 69303-4) 3.4 2.3-3.5 [facility] HospitalAlbumin/Globulin Hiskr9756-94-74 14:52:00 * Test Item Value Reference Range Interpretation Comments Albumin/Globulin Ratio (test code = 1759-0) 1.1 0.8-2.0 [facility] HospitalAlkaline Mhprzwxjayb6076-42-57 14:52:00* Test Item Value Reference Range Interpretation Comments Alkaline Phosphatase (test code = 6768-6) 88 40-150 [facility] HospitalCreatine Llhgaw1199-21-36 14:52:00* Test Item Value Reference Range Interpretation Comments Creatine Kinase (test code = 2157-6) 57 29-168 [facility] HospitalProthrombin Jlqv2764-11-26 14:47:00* Test Item Value Reference Range Interpretation Comments Prothrombin Time (test code = 5902-2) 12.3 11.9-14.5 [facility] HospitalProthromb Time International Ratio 2019-10-18 14:47:00* Test Item Value Reference Range Interpretation Comments Prothromb Time International Ratio (test code = 6301-6) 0.90 Oral Anticoagulant Therapy INR Values:1. Low Intensity Therapy 1.5 - 2.02 . Moderate Intensity Therapy 2.0 - 3.03. High Intensity Therapy(1) 2.5 - 3. 54. High Intensity Therapy(2) 3.0 - 4.05. Panic Value INR > 5.0 [facility] HospitalActivated Partial Thromboplast Time 2019-10-18 14:47:00* Test Item Value Reference Range Interpretation Comments Activated Partial Thromboplast Time (test code = 71525-0) 31.0 23.8-35.5 [facility] HospitalWhite Blood Zruzk6608-55-66 14:33:00* Test Item Value Reference Range Interpretation Comments White Blood Count (test code = 6690-2) 8.10 4.8-10.8 [facility] HospitalRed Blood Ehkty9261-30-80 14:33:00* Test Item Value Reference Range Interpretation Comments Red Blood Count (test code = 789-8) 4.60 3.6-5.1 [facility] HospitalHemoglobin2020-01-31 14:33:00* Test Item Value Reference Range Interpretation Comments Hemoglobin (test code = 25498-7) 13.8 12.0-16.0 [facility] HospitalHematocrit2020-01-31 14:33:00* Test Item Value Reference Range Interpretation Comments Hematocrit (test code = 4544-3) 40.9 34.2-44.1 [facility] HospitalMean Corpuscular Uhxrqq8609-16-68 14:33:00* Test Item Value Reference Range Interpretation Comments Mean Corpuscular Volume (test code = 787-2) 88.9 81-99 [facility] HospitalMean Corpuscular Ihyxwzrtgk4135-71-36 14:33:00* Test Item Value Reference Range Interpretation Comments Mean Corpuscular Hemoglobin (test code = 785-6) 30.0 28-32 [facility] HospitalMean Corpuscular Hemoglobin Concent 2019-10-18 14:33:00* Test Item Value Reference Range Interpretation Comments Mean Corpuscular Hemoglobin Concent (test code = 786-4) 33.7 31-35 [facility] HospitalRed Cell Distribution Qprej2857-11-13 14:33:00* Test Item Value Reference Range Interpretation Comments Red Cell Distribution Width (test code = 70743-7) 12.9 11.7 -14.4 [facility] HospitalPlatelet Agjiv7839-66-50 14:33:00* Test Item Value Reference Range Interpretation Comments Platelet Count (test code = 777-3) 310 140-360 [facility] HospitalNeutrophils (%) (Auto)2019-10-18 14:33:00 * Test Item Value Reference Range Interpretation Comments Neutrophils (%) (Auto) (test code = 01440-4) 66.4 38.7-80.0 [facility] HospitalLymphocytes (%) (Auto)2019-10-18 14:33:00 * Test Item Value Reference Range Interpretation Comments Lymphocytes (%) (Auto) (test code = 736-9) 16.8 18.0-39.1 L [facility] HospitalMonocytes (%) (Auto)2019-10-18 14:33:00* Test Item Value Reference Range Interpretation Comments Monocytes (%) (Auto) (test code = 5905-5) 7.2 4.4-11.3 [facility]Eosinophils (%) (Auto)2019-10-18 14:33:00 * Test Item Value Reference Range Interpretation Comments Eosinophils (%) (Auto) (test code = 713-8) 3.0 0.0-6.0 [facility] HospitalBasophils (%) (Auto)2019-10-18 14:33:00* Test Item Value Reference Range Interpretation Comments Basophils (%) (Auto) (test code = 706-2) 1.2 0.0-1.0 H [facility] HospitalIM GRANULOCYTES %2019-10-18 14:33:00* Test Item Value Reference Range Interpretation Comments IM GRANULOCYTES % (test code = IM GRANULOCYTES %) 5.4 0.0- 1.0 H [facility] HospitalNeutrophils # (Auto)2019-10-18 14:33:00* Test Item Value Reference Range Interpretation Comments Neutrophils # (Auto) (test code = 751-8) 5.4 2.1-6.9 [facility] HospitalLymphocytes # (Auto)2019-10-18 14:33:00* Test Item Value Reference Range Interpretation Comments Lymphocytes # (Auto) (test code = 70749-8) 1.4 1.0-3.2 [facility]Monocytes # (Auto)2019-10-18 14:33:00* Test Item Value Reference Range Interpretation Comments Monocytes # (Auto) (test code = 742-7) 0.6 0.2-0.8 [facility]Eosinophils # (Auto)2019-10-18 14:33:00* Test Item Value Reference Range Interpretation Comments Eosinophils # (Auto) (test code = 711-2) 0.2 0.0-0.4 [facility]Basophils # (Auto)2019-10-18 14:33:00* Test Item Value Reference Range Interpretation Comments Basophils # (Auto) (test code = 704-7) 0.1 0.0-0.1 [facility] HospitalAbsolute Immature Granulocyte (auto 2019-10-18 14:33:00* Test Item Value Reference Range Interpretation Comments Absolute Immature Granulocyte (auto (inocente t code = Absolute Immature Granulocyte (auto) 0.44 0-0.1 [facility] SU4858-37-32 14:33:00 [facility] [address] [address] Patient Name: FRANK PERRY MR #: [id number] : 1930 Age/Sex: 89/F Req #: [id number] Adm Physician: Ordered by: LILIANA GARCIA MD Report #: [id number] Location: ER Room/Bed: Procedure: [id number] CT/CT ABDOMEN/PELVIS WO Exam Date: 10/18/19 Exam [...] M Dictated By: MICHAEL DEL REAL MD 1443 Transcribed By: ROLO on 10/18/19 1443 COPY TO: LILIANA SANZ MD Urine PDM6766-47-42 12:33:00* Test Item Value Reference Range Interpretation Comments Urine WBC (test code = 5821-4) 6-10 0-5 H [facility] AFD6394-44-56 12:33:00* Test Item Value Reference Range Interpretation Comments Urine RBC (test code = 68404-9) 11-20 0-5 H [facility] HospitalU[facility] Pqjtbcbi8930-69-59 12:33:00* Test Item Value Reference Range Interpretation Comments Urine Bacteria (test code = 54895-5) MODERATE NONE H [facility] HospitalU[facility] Epithelial Xgcjs3670-55-07 12:33:00 * Test Item Value Reference Range Interpretation Comments Urine Epithelial Cells (test code = 01220-0) FEW NONE [facility] HospitalU[facility] Hezkc4308-78-53 12:26:00* Test Item Value Reference Range Interpretation Comments Urine Color (test code = 5778-6) YELLOW YELLOW [facility] Mqxnsql2208-83-81 12:26:00* Test Item Value Reference Range Interpretation Comments Urine Clarity (test code = 15024-9) CLEAR CLEAR [facility] HospitalU[facility] Specific Hzmbfik7942-31-43 12:26:00 * Test Item Value Reference Range Interpretation Comments Urine Specific [place] (test code = 5811-5) 1.020 1.010-1.02 5 [facility] HospitalU[facility] pA5269-86-16 12:26:00* Test Item Value Reference Range Interpretation Comments Urine pH (test code = 65026-6) 7 5-7 [facility] Leukocyte Crqkdwbh2172-79-25 12:26:00* Test Item Value Reference Range Interpretation Comments Urine Leukocyte Esterase (test code = 5799-2) NEGATIVE NEGATIVE [facility] Ymyekcs6005-24-85 12:26:00* Test Item Value Reference Range Interpretation Comments Urine Nitrite (test code = 32940-0) NEGATIVE NEGATIVE [facility] Japtlwh4935-44-24 12:26:00* Test Item Value Reference Range Interpretation Comments Urine Protein (test code = 5804-0) NEGATIVE NEGATIVE [facility] HospitalU[facility] Glucose (UA)2019-10-18 12:26:00* Test Item Value Reference Range Interpretation Comments Urine Glucose (UA) (test code = 2349-9) NEGATIVE NEGATIVE [facility] Nrwpvfc0763-73-51 12:26:00* Test Item Value Reference Range Interpretation Comments Urine Ketones (test code = 57251-5) NEGATIVE NEGATIVE [facility] HospitalU[facility] Myyxjorjrqtr5772-27-37 12:26:00* Test Item Value Reference Range Interpretation Comments Urine Urobilinogen (test code = 19588-7) 0.2 0.2-1 [facility] HospitalU[facility] Siprvjyyi0086-51-40 12:26:00* Test Item Value Reference Range Interpretation Comments Urine Bilirubin (test code = 1978-6) NEGATIVE NEGATIVE [facility] HospitalU[facility] Qhpmh9367-99-90 12:26:00* Test Item Value Reference Range Interpretation Comments Urine Blood (test code = 21697-7) TRACE NEGATIVE H [facility] HospitalBacterial urine cmjfxfa2919-90-33 10:13:00* Test Item Value Reference Range Interpretation Comments Urine Culture (test code = 630-4) PSEUDOMONAS AERUGINOSA [facility] Mjnio1746-29-40 02:58:00* Test Item Value Reference Range Interpretation Comments Sodium Level (test code = 2951-2) 136 136-145 [facility] HospitalPotassium Znhsc7256-60-32 02:58:00* Test Item Value Reference Range Interpretation Comments Potassium Level (test code = 2823-3) 3.9 3.5-5.1 [facility] HospitalChloride Gmxgz2461-56-21 02:58:00* Test Item Value Reference Range Interpretation Comments Chloride Level (test code = 2075-0) 99 98-107 [facility] HospitalCarbon Dioxide Zggwe3376-88-33 02:58:00* Test Item Value Reference Range Interpretation Comments Carbon Dioxide Level (test code = 2028-9) 24 22-29 [facility] HospitalAnion Fqv2346-01-71 02:58:00* Test Item Value Reference Range Interpretation Comments Anion Gap (test code = 05287-1) 16.9 8-16 H [facility] HospitalBlood Urea Oytdjrwr1294-55-42 02:58:00* Test Item Value Reference Range Interpretation Comments Blood Urea Nitrogen (test code = 3094-0) 15 7-26 [facility] HospitalCreatinine2020-01-28 02:58:00* Test Item Value Reference Range Interpretation Comments Creatinine (test code = 2160-0) 1.01 0.57-1.11 [facility] HospitalBUN/Creatinine Souci8675-15-66 02:58:00* Test Item Value Reference Range Interpretation Comments BUN/Creatinine Ratio (test code = 3097-3) 15 6-25 [facility] HospitalEstimat Glomerular Filtration Rate 2019-10-15 02:58:00* Test Item Value Reference Range Interpretation Comments Estimat Glomerular Filtration Rate (test code = 120260493) 52 >60 L Ranges were taken from the National Kidney Disease Education Program and the [facility] literature.Reference ranges:60 or greater: Aefuae11-52 ( for 3 consecutive months): Chronic kidney disease 15 or less: Kidney failureKell [facility] Regional HospitalGlucose Swlly5496-55-36 02:58:00* Test Item Value Reference Range Interpretation Comments Glucose Level (test code = CMQ6119) 96 74-118 [facility] HospitalCalcium Zaofl0972-39-20 02:58:00* Test Item Value Reference Range Interpretation Comments Calcium Level (test code = 58642-5) 9.7 8.4-10.2 [facility] HospitalUrine YWC9356-96-27 02:54:00* Test Item Value Reference Range Interpretation Comments Urine WBC (test code = 5821-4) 11-20 0-5 H [facility] HospitalUrine JKV9601-04-35 02:54:00* Test Item Value Reference Range Interpretation Comments Urine RBC (test code = 01935-5) 0-5 0-5 [facility] HospitalUrine Aaytsred1176-54-19 02:54:00* Test Item Value Reference Range Interpretation Comments Urine Bacteria (test code = 07109-8) FEW NONE [facility] HospitalUrine Epithelial Kswzm9056-16-65 02:54:00 * Test Item Value Reference Range Interpretation Comments Urine Epithelial Cells (test code = 76796-1) FEW NONE [facility] HospitalWhite Blood Czson1306-34-92 02:40:00* Test Item Value Reference Range Interpretation Comments White Blood Count (test code = 6690-2) 8.47 4.8-10.8 [facility] HospitalRed Blood Psrur1298-41-13 02:40:00* Test Item Value Reference Range Interpretation Comments Red Blood Count (test code = 789-8) 4.68 3.6-5.1 [facility] HospitalHemoglobin2020-01-28 02:40:00* Test Item Value Reference Range Interpretation Comments Hemoglobin (test code = 33254-5) 14.1 12.0-16.0 [facility] HospitalHematocrit2020-01-28 02:40:00* Test Item Value Reference Range Interpretation Comments Hematocrit (test code = 4544-3) 41.8 34.2-44.1 [facility] HospitalMean Corpuscular Wcudmv6079-02-60 02:40:00* Test Item Value Reference Range Interpretation Comments Mean Corpuscular Volume (test code = 787-2) 89.3 81-99 [facility] HospitalMean Corpuscular Ardapgzrsv1594-26-10 02:40:00* Test Item Value Reference Range Interpretation Comments Mean Corpuscular Hemoglobin (test code = 785-6) 30.1 28-32 [facility] HospitalMean Corpuscular Hemoglobin Concent 2019-10-15 02:40:00* Test Item Value Reference Range Interpretation Comments Mean Corpuscular Hemoglobin Concent (test code = 786-4) 33.7 31-35 [facility] HospitalRed Cell Distribution Wairw4282-90-38 02:40:00* Test Item Value Reference Range Interpretation Comments Red Cell Distribution Width (test code = 75126-5) 13.0 11.7 -14.4 [facility] HospitalPlatelet Rdexq4647-46-32 02:40:00* Test Item Value Reference Range Interpretation Comments Platelet Count (test code = 777-3) 278 140-360 [facility] HospitalNeutrophils (%) (Auto)2019-10-15 02:40:00 * Test Item Value Reference Range Interpretation Comments Neutrophils (%) (Auto) (test code = 16758-8) 74.8 38.7-80.0 [facility] HospitalLymphocytes (%) (Auto)2019-10-15 02:40:00 * Test Item Value Reference Range Interpretation Comments Lymphocytes (%) (Auto) (test code = 736-9) 10.3 18.0-39.1 L [facility] HospitalMonocytes (%) (Auto)2019-10-15 02:40:00* Test Item Value Reference Range Interpretation Comments Monocytes (%) (Auto) (test code = 5905-5) 6.6 4.4-11.3 [facility] HospitalEosinophils (%) (Auto)2019-10-15 02:40:00 * Test Item Value Reference Range Interpretation Comments Eosinophils (%) (Auto) (test code = 713-8) 5.7 0.0-6.0 [facility] HospitalBasophils (%) (Auto)2019-10-15 02:40:00* Test Item Value Reference Range Interpretation Comments Basophils (%) (Auto) (test code = 706-2) 0.6 0.0-1.0 [facility] HospitalIM GRANULOCYTES %2019-10-15 02:40:00* Test Item Value Reference Range Interpretation Comments IM GRANULOCYTES % (test code = IM GRANULOCYTES %) 2.0 0.0- 1.0 H [facility] HospitalNeutrophils # (Auto)2019-10-15 02:40:00* Test Item Value Reference Range Interpretation Comments Neutrophils # (Auto) (test code = 751-8) 6.3 2.1-6.9 [facility] HospitalLymphocytes # (Auto)2019-10-15 02:40:00* Test Item Value Reference Range Interpretation Comments Lymphocytes # (Auto) (test code = 68486-4) 0.9 1.0-3.2 L [facility] HospitalMonocytes # (Auto)2019-10-15 02:40:00* Test Item Value Reference Range Interpretation Comments Monocytes # (Auto) (test code = 742-7) 0.6 0.2-0.8 [facility] HospitalEosinophils # (Auto)2019-10-15 02:40:00* Test Item Value Reference Range Interpretation Comments Eosinophils # (Auto) (test code = 711-2) 0.5 0.0-0.4 H [facility] HospitalBasophils # (Auto)2019-10-15 02:40:00* Test Item Value Reference Range Interpretation Comments Basophils # (Auto) (test code = 704-7) 0.1 0.0-0.1 [facility] HospitalAbsolute Immature Granulocyte (auto 2019-10-15 02:40:00* Test Item Value Reference Range Interpretation Comments Absolute Immature Granulocyte (auto (inocente t code = Absolute Immature Granulocyte (auto) 0.17 0-0.1 H [facility] HospitalUrine Znzfk6021-80-64 02:40:00* Test Item Value Reference Range Interpretation Comments Urine Color (test code = 5778-6) YELLOW YELLOW [facility] HospitalUrine Hwinyep8322-19-10 02:40:00* Test Item Value Reference Range Interpretation Comments Urine Clarity (test code = 30507-2) CLEAR CLEAR [facility] Specific Pvmhldp4493-82-68 02:40:00 * Test Item Value Reference Range Interpretation Comments Urine Specific [place] (test code = 5811-5) 1.020 1.010-1.02 5 [facility] kU7352-17-76 02:40:00* Test Item Value Reference Range Interpretation Comments Urine pH (test code = 80046-7) 8 5-7 [facility] Leukocyte Dpxmlfpt8637-86-08 02:40:00* Test Item Value Reference Range Interpretation Comments Urine Leukocyte Esterase (test code = 5799-2) TRACE NEGATIVE H [facility] Tjkfohb7562-34-10 02:40:00* Test Item Value Reference Range Interpretation Comments Urine Nitrite (test code = 78773-9) NEGATIVE NEGATIVE [facility] Emugzoa8388-09-86 02:40:00* Test Item Value Reference Range Interpretation Comments Urine Protein (test code = 5804-0) NEGATIVE NEGATIVE [facility] Glucose (UA)2019-10-15 02:40:00* Test Item Value Reference Range Interpretation Comments Urine Glucose (UA) (test code = 2349-9) NEGATIVE NEGATIVE [facility] Xmkwolt5753-40-99 02:40:00* Test Item Value Reference Range Interpretation Comments Urine Ketones (test code = 25653-5) NEGATIVE NEGATIVE [facility] Rmpifeatypmd6257-57-31 02:40:00* Test Item Value Reference Range Interpretation Comments Urine Urobilinogen (test code = 65344-3) 0.2 0.2-1 [facility] Tapdttkav1753-37-89 02:40:00* Test Item Value Reference Range Interpretation Comments Urine Bilirubin (test code = 1978-6) NEGATIVE NEGATIVE [facility] Hospital[facility] Ynwvu6682-18-62 02:40:00* Test Item Value Reference Range Interpretation Comments Urine Blood (test code = 14125-6) TRACE NEGATIVE H [facility] HospitalABDOMEN-1VIEW ([facility]UB)2019-10-15 02:28:00 [facility] [address] [address] Patient Name: FRANK PERRY MR #: [id number] : 1930 Age/Sex: 89/F Req #: [id number] Adm Physician: Ordered by: ELIZABETH JAMES MD Report #: [id number] Location: ER Room/Bed: Procedure: [id number] 4 DX/ABDOMEN-1VIEW (KUB) Exam Date: Exam Time: REPORT STATUS: Signed Abdomen/KUB INDICATION: Diffuse abdominal pain abd pain Y COMPARISON: Abdome n x-ray 09/27/2019. FINDINGS: Portable, supine image obtained [...] Moderate stool burden. Left basilar airspace opacity ma y represent atelectasis or pneumonia. Signed by: Dr. Salma Lopez MD on 10/15/2019 2:31 AM Dictated By: SALMA LOPEZ MD Electronically Si gned By: SALMA LOPEZ MD on 10/15/19230 Transcribed By: ROLO on 10/15 COPY TO: ELIZABETH JAMES MD ABDOMEN-1VIEW ([facility]) 2019-09-27 11:22:[address] [address] Patient Name: RFANK PERRY MR #: [id number] : 1930 Age/Sex: 89/F Req #: [id number] Adm Physician: Ordered by: TADEO HERNANDEZ MD Report #: [id number] Location: [facility] Room/Bed: Procedure: [id number] DX/AB DOMEN-1VIEW ([facility]) Exam Date: 09/27/19 Exam Time: 103 [...] ly Signed By: YUMIKO RICH MD on 09/27/191122 Transcribed By: ROLO on 0 112 COPY TO: TADEO HERNANDEZ MD SACRUM GWOCMT4310-92-84 15:43:[address] [place], [place] [address] Patient Name: FRANK PERRY MR #: [id number] : 1930 Age/Sex: 89/F Req #: [id number] [facility] Physician: Ordered by: TSERING CAMERON MD Report #: [id number] Location: ER Room/Bed: Procedure: [id number] D X/SACRUM COCCYX Exam Date: 08/09/19 Exam [...] 3:46 PM Dictated By: JAZMYN Vizcaino MD 1546 Transcribed B y: ROLO on 08/09/19 1546 COPY TO: TSERING CAMERON MD SP LUMBAR, COMPLETE MIN 9TH9280-52-01 15:43:[address] [address] Patient Name: FRANK PERRY MR #: [id number] : 1930 Age/Sex: 89/F Req #: [id number] Adm Physician: Ordered by: TSERING CAMERON MD Report #: [id number] Location: ER Room/Bed: Procedure: [id number] D X/SP LUMBAR, COMPLETE MIN 4VW Exam [...] 3:46 PM Dictated By: JAZMYN LARSEN MD 45 T ranscribed By: ROLO on 08/09/191545 COPY TO: TSERING CAMERON MD Urine Xidci4485-01-08 15:16:00* Test Item Value Reference Range Interpretation Comments Urine Color (test code = 5778-6) YELLOW YELLOW [facility] UGK3944-16-57 15:16:00* Test Item Value Reference Range Interpretation Comments Urine WBC (test code = 5821-4) NONE 0-5 [facility] HospitalU[facility] WAX3692-85-68 15:16:00* Test Item Value Reference Range Interpretation Comments Urine RBC (test code = 84691-7) 0-5 0-5 [facility] HospitalU[facility] Tvujkeui1425-37-35 15:16:00* Test Item Value Reference Range Interpretation Comments Urine Bacteria (test code = 69516-6) NONE NONE [facility] HospitalU[facility] Epithelial Ybfwq5198-65-74 15:16:00 * Test Item Value Reference Range Interpretation Comments Urine Epithelial Cells (test code = 78655-3) RARE NONE [facility] HospitalU[facility] Ggsxluf6412-28-32 14:59:00* Test Item Value Reference Range Interpretation Comments Urine Clarity (test code = 37611-4) CLEAR CLEAR [facility] HospitalU[facility] Specific Ehbytga7805-65-93 14:59:00 * Test Item Value Reference Range Interpretation Comments Urine Specific [place] (test code = 5811-5) 1.010 1.010-1.02 5 [facility] HospitalU[facility] fF1083-01-05 14:59:00* Test Item Value Reference Range Interpretation Comments Urine pH (test code = 12747-5) 8 5-7 [facility] Leukocyte Nzagphou2978-52-63 14:59:00* Test Item Value Reference Range Interpretation Comments Urine Leukocyte Esterase (test code = 46476-9) NEGATIVE NEGATIV E [facility] HospitalUrine Wafccjp5093-32-32 14:59:00* Test Item Value Reference Range Interpretation Comments Urine Nitrite (test code = 38541-6) NEGATIVE NEGATIVE [facility] HospitalU[facility] Jljbayb7830-86-15 14:59:00* Test Item Value Reference Range Interpretation Comments Urine Protein (test code = 49278-0) NEGATIVE NEGATIVE [facility] HospitalU[facility] Glucose (UA)2019-08-09 14:59:00* Test Item Value Reference Range Interpretation Comments Urine Glucose (UA) (test code = 33349-0) NEGATIVE NEGATIVE [facility] HospitalU[facility] Pkuscrl2956-75-51 14:59:00* Test Item Value Reference Range Interpretation Comments Urine Ketones (test code = 77915-2) NEGATIVE NEGATIVE [facility] HospitalU[facility] Cnacayynrcdg4553-32-73 14:59:00* Test Item Value Reference Range Interpretation Comments Urine Urobilinogen (test code = 92313-1) 0.2 0.2-1 [facility] HospitalU[facility] Bwkpdkubp4643-10-78 14:59:00* Test Item Value Reference Range Interpretation Comments Urine Bilirubin (test code = 1977-8) NEGATIVE NEGATIVE [facility] HospitalU[facility] Apddh3165-41-90 14:59:00* Test Item Value Reference Range Interpretation Comments Urine Blood (test code = 37247-4) 1+ NEGATIVE [facility] HospitalCT [facility]BD[facility]/PELVIS B4828-53-74 09:50:00 [facility] [address] [address] Patient Name: FRANK PERRY MR #: [id number] : 1930 Age/Sex: 89/F Req #: [id number] Adm Physician: Ordered by: SUYAPA ALATORRE MD Report #: [id number] Location: [place] Room/Bed: Procedure: [id number] CT/C T ABDOMEN/PELVIS W Exam Date: 07/03/19 [...] on 07/03/19955 COPY TO: SUYAPA ALATORRE MD Blood Urea Jejpwwhm2356-26-37 08:27:00* Test Item Value Reference Range Interpretation Comments Blood Urea Nitrogen (test code = 3094-0) 27 7-26 H [facility] HospitalCreatinine2019-10-16 08:27:00* Test Item Value Reference Range Interpretation Comments Creatinine (test code = 2160-0) 1.34 0.57-1.11 H [facility] HospitalBUN/Creatinine Cehqr6055-06-53 08:27:00* Test Item Value Reference Range Interpretation Comments BUN/Creatinine Ratio (test code = 3097-3) 20 6-25 [facility] HospitalEstimat Glomerular Filtration Rate 2019-07-03 08:27:00* Test Item Value Reference Range Interpretation Comments Estimat Glomerular Filtration Rate (test code = 411790497) 37 >60 L Ranges were taken from the National Kidney Disease Education Program and the [facility] literature.Reference ranges:60 or greater: Ghavwj43-15 ( for 3 consecutive months): Chronic kidney disease 15 or less: Kidney failureKell [facility] Regional HospitalWhite Blood Kpnkl5263-50-55 16:18:00* Test Item Value Reference Range Interpretation Comments White Blood Count (test code = 6690-2) 7.46 4.8-10.8 [facility] HospitalRed Blood Lfekm4449-18-54 16:18:00* Test Item Value Reference Range Interpretation Comments Red Blood Count (test code = 789-8) 3.86 3.6-5.1 [facility] HospitalHemoglobin2019-09-18 16:18:00* Test Item Value Reference Range Interpretation Comments Hemoglobin (test code = 08247-0) 11.7 12.0-16.0 L [facility] HospitalHematocrit2019-09-18 16:18:00* Test Item Value Reference Range Interpretation Comments Hematocrit (test code = 4544-3) 35.2 34.2-44.1 [facility] HospitalMean Corpuscular Hwhpeg9586-90-35 16:18:00* Test Item Value Reference Range Interpretation Comments Mean Corpuscular Volume (test code = 787-2) 91.2 81-99 [facility] HospitalMean Corpuscular Gxfwgbpfft6619-98-99 16:18:00* Test Item Value Reference Range Interpretation Comments Mean Corpuscular Hemoglobin (test code = 785-6) 30.3 28-32 [facility] HospitalMean Corpuscular Hemoglobin Concent 2019-06-05 16:18:00* Test Item Value Reference Range Interpretation Comments Mean Corpuscular Hemoglobin Concent (test code = 786-4) 33.2 31-35 [facility] HospitalRed Cell Distribution Wecxb0148-16-99 16:18:00* Test Item Value Reference Range Interpretation Comments Red Cell Distribution Width (test code = 66843-8) 13.0 11.7 -14.4 [facility] HospitalPlatelet Czobq6107-31-26 16:18:00* Test Item Value Reference Range Interpretation Comments Platelet Count (test code = 777-3) 214 140-360 [facility] HospitalNeutrophils (%) (Auto)2019-06-05 16:18:00 * Test Item Value Reference Range Interpretation Comments Neutrophils (%) (Auto) (test code = 71210-5) 64.8 38.7-80.0 [facility] HospitalLymphocytes (%) (Auto)2019-06-05 16:18:00 * Test Item Value Reference Range Interpretation Comments Lymphocytes (%) (Auto) (test code = 736-9) 22.1 18.0-39.1 [facility] HospitalMonocytes (%) (Auto)2019-06-05 16:18:00* Test Item Value Reference Range Interpretation Comments Monocytes (%) (Auto) (test code = 5905-5) 8.8 4.4-11.3 [facility] HospitalEosinophils (%) (Auto)2019-06-05 16:18:00 * Test Item Value Reference Range Interpretation Comments Eosinophils (%) (Auto) (test code = 713-8) 2.9 0.0-6.0 [facility] HospitalBasophils (%) (Auto)2019-06-05 16:18:00* Test Item Value Reference Range Interpretation Comments Basophils (%) (Auto) (test code = 706-2) 0.5 0.0-1.0 [facility] HospitalIM GRANULOCYTES %2019-06-05 16:18:00* Test Item Value Reference Range Interpretation Comments IM GRANULOCYTES % (test code = IM GRANULOCYTES %) 0.9 0.0- 1.0 [facility] HospitalNeutrophils # (Auto)2019-06-05 16:18:00* Test Item Value Reference Range Interpretation Comments Neutrophils # (Auto) (test code = 751-8) 4.8 2.1-6.9 [facility] HospitalLymphocytes # (Auto)2019-06-05 16:18:00* Test Item Value Reference Range Interpretation Comments Lymphocytes # (Auto) (test code = 88951-8) 1.7 1.0-3.2 [facility] HospitalMonocytes # (Auto)2019-06-05 16:18:00* Test Item Value Reference Range Interpretation Comments Monocytes # (Auto) (test code = 742-7) 0.7 0.2-0.8 [facility] HospitalEosinophils # (Auto)2019-06-05 16:18:00* Test Item Value Reference Range Interpretation Comments Eosinophils # (Auto) (test code = 711-2) 0.2 0.0-0.4 [facility] HospitalBasophils # (Auto)2019-06-05 16:18:00* Test Item Value Reference Range Interpretation Comments Basophils # (Auto) (test code = 704-7) 0.0 0.0-0.1 [facility] Granulocyte (auto 2019-06-05 16:18:00* Test Item Value Reference Range Interpretation Comments Absolute Immature Granulocyte (auto (inocente t code = Absolute Immature Granulocyte (auto) 0.07 0-0.1 [facility] I7623-90-07 12:37:00* Test Item Value Reference Range Interpretation Comments Troponin I (test code = BKK2191) 0.008 0-0.300 [facility] T0152-14-44 12:37:00* Test Item Value Reference Range Interpretation Comments Troponin I (test code = WQH4424) 0.008 0-0.300 [facility] HospitalTroponin N5497-74-99 12:37:00* Test Item Value Reference Range Interpretation Comments Troponin I (test code = ZBO7900) 0.008 0-0.300 [facility] HospitalCreatine Kinase DA2907-54-78 07:01:00* Test Item Value Reference Range Interpretation Comments Creatine Kinase MB (test code = 48868-6) 1.10 0-5.0 [facility] HospitalCreatine Kinase DW6494-45-77 07:01:00* Test Item Value Reference Range Interpretation Comments Creatine Kinase MB (test code = 75493-1) 1.10 0-5.0 [facility] HospitalCreatine Kinase EO7614-70-18 07:01:00* Test Item Value Reference Range Interpretation Comments Creatine Kinase MB (test code = 04012-0) 1.10 0-5.0 [facility] HospitalCreatine Qhvavv3135-49-96 06:53:00* Test Item Value Reference Range Interpretation Comments Creatine Kinase (test code = 2157-6) 28 29-168 L [facility] HospitalCreatine Ogcftt6494-82-22 06:53:00* Test Item Value Reference Range Interpretation Comments Creatine Kinase (test code = 2157-6) 28 29-168 L [facility] HospitalCreatine Xpxuje0335-09-22 06:53:00* Test Item Value Reference Range Interpretation Comments Creatine Kinase (test code = 2157-6) 28 29-168 L [facility] Ezkfb0119-94-90 06:34:00* Test Item Value Reference Range Interpretation Comments Sodium Level (test code = 2951-2) 133 136-145 L [facility] HospitalPotassium Sijoy5700-23-73 06:34:00* Test Item Value Reference Range Interpretation Comments Potassium Level (test code = 2823-3) 4.5 3.5-5.1 [facility] HospitalChloride Drcli7338-78-66 06:34:00* Test Item Value Reference Range Interpretation Comments Chloride Level (test code = 2075-0) 100 98-107 [facility] HospitalCarbon Dioxide Ngxel7681-10-79 06:34:00* Test Item Value Reference Range Interpretation Comments Carbon Dioxide Level (test code = 2028-9) 25 22-29 [facility] HospitalAnion Cpw4811-94-02 06:34:00* Test Item Value Reference Range Interpretation Comments Anion Gap (test code = 04294-0) 12.5 8-16 [facility] HospitalBlood Urea Dcwaelmb1284-46-12 06:34:00* Test Item Value Reference Range Interpretation Comments Blood Urea Nitrogen (test code = 3094-0) 19 7-26 [facility] HospitalCreatinine2019-04-27 06:34:00* Test Item Value Reference Range Interpretation Comments Creatinine (test code = 2160-0) 1.04 0.57-1.11 [facility] HospitalBUN/Creatinine Vcajd4200-04-18 06:34:00* Test Item Value Reference Range Interpretation Comments BUN/Creatinine Ratio (test code = 3097-3) 18 6- [facility] HospitalEstimat Glomerular Filtration Rate 2019-01-12 06:34:00* Test Item Value Reference Range Interpretation Comments Estimat Glomerular Filtration Rate (test code = 601728315) 50 >60 L Ranges were taken from the National Kidney Disease Education Program and the [facility] literature.Reference ranges:60 or greater: Qeepjv67-51 ( for 3 consecutive months): Chronic kidney disease 15 or less: Kidney failureKell [facility] HospitalGlucose Ibbvu6633-14-46 06:34:00* Test Item Value Reference Range Interpretation Comments Glucose Level (test code = KCA4929) 86 74-118 [facility] HospitalCalcium Nnwzr7443-53-53 06:34:00* Test Item Value Reference Range Interpretation Comments Calcium Level (test code = 07604-2) 8.5 8.4-10.2 [facility] HospitalTotal Kpbxccoqb4634-68-62 06:34:00* Test Item Value Reference Range Interpretation Comments Total Bilirubin (test code = 1975-2) 0.6 0.2-1.2 [facility] HospitalAspartate Amino Transf (AST/SGOT) 2019-01-12 06:34:00* Test Item Value Reference Range Interpretation Comments Aspartate Amino Transf (AST/SGOT) (test code = Aspartate Amino Transf (AST/SGOT)) 15 5-34 [facility] HospitalAlanine Aminotransferase (ALT/SGPT) 2019-01-12 06:34:00* Test Item Value Reference Range Interpretation Comments Alanine Aminotransferase (ALT/SGPT) (test code = 1742-6) 13 0-55 [facility] HospitalTotal Njnddze7803-24-75 06:34:00* Test Item Value Reference Range Interpretation Comments Total Protein (test code = 2885-2) 5.6 6.5-8.1 L [facility] HospitalAlbumin2019-04-27 06:34:00* Test Item Value Reference Range Interpretation Comments Albumin (test code = 1751-7) 2.9 3.5-5.0 L [facility] HospitalGlobulin2019-04-27 06:34:00* Test Item Value Reference Range Interpretation Comments Globulin (test code = 14769-5) 2.7 2.3-3.5 [facility] HospitalAlbumin/Globulin Whvzi3679-11-13 06:34:00 * Test Item Value Reference Range Interpretation Comments Albumin/Globulin Ratio (test code = 1759-0) 1.1 0.8-2.0 [facility] HospitalAlkaline Xxloneqwmnl1228-65-17 06:34:00* Test Item Value Reference Range Interpretation Comments Alkaline Phosphatase (test code = 6768-6) 53 40-150 [facility] Tffmf4581-23-75 06:34:00* Test Item Value Reference Range Interpretation Comments Sodium Level (test code = 2951-2) 133 136-145 L [facility] HospitalPotassium Lxuyg3891-58-78 06:34:00* Test Item Value Reference Range Interpretation Comments Potassium Level (test code = 2823-3) 4.5 3.5-5.1 [facility] HospitalChloride Itvsi1790-51-44 06:34:00* Test Item Value Reference Range Interpretation Comments Chloride Level (test code = 2075-0) 100 98-107 [facility] HospitalCarbon Dioxide Pxlxl5122-84-08 06:34:00* Test Item Value Reference Range Interpretation Comments Carbon Dioxide Level (test code = 2028-9) 25 22-29 [facility] HospitalAnion Psx2968-34-59 06:34:00* Test Item Value Reference Range Interpretation Comments Anion Gap (test code = 33836-7) 12.5 8-16 [facility] HospitalGlucose Ilvti2136-45-10 06:34:00* Test Item Value Reference Range Interpretation Comments Glucose Level (test code = FMS6603) 86 74-118 [facility] HospitalCalcium Wyxzm0970-99-74 06:34:00* Test Item Value Reference Range Interpretation Comments Calcium Level (test code = 54681-3) 8.5 8.4-10.2 [facility] HospitalTotal Oicxujbbr8641-23-07 06:34:00* Test Item Value Reference Range Interpretation Comments Total Bilirubin (test code = 1975-2) 0.6 0.2-1.2 [facility] HospitalAspartate Amino Transf (AST/SGOT) 2019-01-12 06:34:00* Test Item Value Reference Range Interpretation Comments Aspartate Amino Transf (AST/SGOT) (test code = Aspartate Amino Transf (AST/SGOT)) 15 5-34 [facility] HospitalAlanine Aminotransferase (ALT/SGPT) 2019-01-12 06:34:00* Test Item Value Reference Range Interpretation Comments Alanine Aminotransferase (ALT/SGPT) (test code = 1742-6) 13 0-55 [facility] HospitalTotal Mnnsdax8688-70-27 06:34:00* Test Item Value Reference Range Interpretation Comments Total Protein (test code = 2885-2) 5.6 6.5-8.1 L [facility] HospitalAlbumin2019-04-27 06:34:00* Test Item Value Reference Range Interpretation Comments Albumin (test code = 1751-7) 2.9 3.5-5.0 L [facility] HospitalGlobulin2019-04-27 06:34:00* Test Item Value Reference Range Interpretation Comments Globulin (test code = 25347-0) 2.7 2.3-3.5 [facility] HospitalAlbumin/Globulin Ahpul6197-11-89 06:34:00 * Test Item Value Reference Range Interpretation Comments Albumin/Globulin Ratio (test code = 1759-0) 1.1 0.8-2.0 [facility] HospitalAlkaline Epvlqpdmtlh6370-00-01 06:34:00* Test Item Value Reference Range Interpretation Comments Alkaline Phosphatase (test code = 6768-6) 53 40-150 [facility] HospitalTotal Wzayxudvi7512-08-43 06:34:00* Test Item Value Reference Range Interpretation Comments Total Bilirubin (test code = 1975-2) 0.6 0.2-1.2 [facility] HospitalAspartate Amino Transf (AST/SGOT) 2019-01-12 06:34:00* Test Item Value Reference Range Interpretation Comments Aspartate Amino Transf (AST/SGOT) (test code = Aspartate Amino Transf (AST/SGOT)) 15 5-34 [facility] HospitalAlanine Aminotransferase (ALT/SGPT) 2019-01-12 06:34:00* Test Item Value Reference Range Interpretation Comments Alanine Aminotransferase (ALT/SGPT) (test code = 1742-6) 13 0-55 [facility] HospitalTotal Gfoqhuk1370-12-23 06:34:00* Test Item Value Reference Range Interpretation Comments Total Protein (test code = 2885-2) 5.6 6.5-8.1 L [facility] HospitalAlbumin2019-04-27 06:34:00* Test Item Value Reference Range Interpretation Comments Albumin (test code = 1751-7) 2.9 3.5-5.0 L [facility] HospitalGlobulin2019-04-27 06:34:00* Test Item Value Reference Range Interpretation Comments Globulin (test code = 07688-7) 2.7 2.3-3.5 [facility] HospitalAlbumin/Globulin Jwuag9485-62-88 06:34:00 * Test Item Value Reference Range Interpretation Comments Albumin/Globulin Ratio (test code = 1759-0) 1.1 0.8-2.0 [facility] HospitalAlkaline Pyqlykyzvsc2604-25-21 06:34:00* Test Item Value Reference Range Interpretation Comments Alkaline Phosphatase (test code = 6768-6) 53 40-150 [facility] HospitalWhite Blood Kvtyn4909-02-10 06:22:00* Test Item Value Reference Range Interpretation Comments White Blood Count (test code = 6690-2) 7.94 4.8-10.8 [facility] HospitalRed Blood Rfepf4086-08-38 06:22:00* Test Item Value Reference Range Interpretation Comments Red Blood Count (test code = 789-8) 4.11 3.6-5.1 [facility] HospitalHemoglobin2019-04-27 06:22:00* Test Item Value Reference Range Interpretation Comments Hemoglobin (test code = 56953-0) 12.5 12.0-16.0 [facility] HospitalHematocrit2019-04-27 06:22:00* Test Item Value Reference Range Interpretation Comments Hematocrit (test code = 4544-3) 36.8 34.2-44.1 [facility] HospitalMean Corpuscular Mfyhsb2501-12-57 06:22:00* Test Item Value Reference Range Interpretation Comments Mean Corpuscular Volume (test code = 787-2) 89.5 81-99 [facility] HospitalMean Corpuscular Sdpqqvsqvu4103-41-08 06:22:00* Test Item Value Reference Range Interpretation Comments Mean Corpuscular Hemoglobin (test code = 785-6) 30.4 28-32 [facility] HospitalMean Corpuscular Hemoglobin Concent 2019-01-12 06:22:00* Test Item Value Reference Range Interpretation Comments Mean Corpuscular Hemoglobin Concent (test code = 786-4) 34.0 31-35 [facility] HospitalRed Cell Distribution Ffuhz1548-74-91 06:22:00* Test Item Value Reference Range Interpretation Comments Red Cell Distribution Width (test code = 45226-9) 12.9 11.7 -14.4 [facility] HospitalPlatelet Cxbbn9478-83-38 06:22:00* Test Item Value Reference Range Interpretation Comments Platelet Count (test code = 777-3) 199 140-360 [facility] HospitalNeutrophils (%) (Auto)2019-01-12 06:22:00 * Test Item Value Reference Range Interpretation Comments Neutrophils (%) (Auto) (test code = 27949-7) 48.0 38.7-80.0 [facility] HospitalLymphocytes (%) (Auto)2019-01-12 06:22:00 * Test Item Value Reference Range Interpretation Comments Lymphocytes (%) (Auto) (test code = 736-9) 30.9 18.0-39.1 [facility] HospitalMonocytes (%) (Auto)2019-01-12 06:22:00* Test Item Value Reference Range Interpretation Comments Monocytes (%) (Auto) (test code = 5905-5) 11.2 4.4-11.3 [facility] HospitalEosinophils (%) (Auto)2019-01-12 06:22:00 * Test Item Value Reference Range Interpretation Comments Eosinophils (%) (Auto) (test code = 713-8) 5.2 0.0-6.0 [facility] HospitalBasophils (%) (Auto)2019-01-12 06:22:00* Test Item Value Reference Range Interpretation Comments Basophils (%) (Auto) (test code = 706-2) 0.5 0.0-1.0 [facility] HospitalIM GRANULOCYTES %2019-01-12 06:22:00* Test Item Value Reference Range Interpretation Comments IM GRANULOCYTES % (test code = IM GRANULOCYTES %) 4.2 0.0- 1.0 H [facility] HospitalNeutrophils # (Auto)2019-01-12 06:22:00* Test Item Value Reference Range Interpretation Comments Neutrophils # (Auto) (test code = 751-8) 3.8 2.1-6.9 [facility] HospitalLymphocytes # (Auto)2019-01-12 06:22:00* Test Item Value Reference Range Interpretation Comments Lymphocytes # (Auto) (test code = 77780-5) 2.5 1.0-3.2 [facility] HospitalMonocytes # (Auto)2019-01-12 06:22:00* Test Item Value Reference Range Interpretation Comments Monocytes # (Auto) (test code = 742-7) 0.9 0.2-0.8 H [facility] HospitalEosinophils # (Auto)2019-01-12 06:22:00* Test Item Value Reference Range Interpretation Comments Eosinophils # (Auto) (test code = 711-2) 0.4 0.0-0.4 [facility] HospitalBasophils # (Auto)2019-01-12 06:22:00* Test Item Value Reference Range Interpretation Comments Basophils # (Auto) (test code = 704-7) 0.0 0.0-0.1 [facility] HospitalAbsolute Immature Granulocyte (auto 2019-01-12 06:22:00* Test Item Value Reference Range Interpretation Comments Absolute Immature Granulocyte (auto (inocente t code = Absolute Immature Granulocyte (auto) 0.33 0-0.1 H [facility] HospitalCXR 2 VIEW - QCXD3558-30-38 13:38:00 [facility] [address] [place] [address] Patient Name: FRANK PERRY MR #: [id number] : 1930 Age/Sex: 88/F Req #: [id number] Adm Physician: CALEB ALATORRE MD Ordered by: LINDY WALKER MD Report #: [id number] Location: [facility] Room/Bed: [place] [address] Procedure: [id number] HOPD/CXR 2 VIEW - HOPD Exam Date: [...] GREGORY WALKER MD CHEST SINGLE (PORTABLE)2018-12-21 20:16:00 [place] [address] Patient Name: FRANK PERRY MR #: [id number] : 1930 Age/Sex: 88/F Req #: [id number] Adm Physician: Ordered by: LILIANA GARCIA MD Report #: [id number] Location: ER Room/Bed: Procedure: [id number] DX/CH EST SINGLE (PORTABLE) Exam Date: Exam [...] on 12/21/182019 COPY TO: LILIANA GARCIA MD B-Type Natriuretic Mgwonxd6679-95-09 19:31:00* Test Item Value Reference Range Interpretation Comments B-Type Natriuretic Peptide (test code = 84279-2) 219.8 0-100 H [facility] HospitalB-Type Natriuretic Pahvlrs9422-99-47 19:31:00* Test Item Value Reference Range Interpretation Comments B-Type Natriuretic Peptide (test code = 03168-6) 219.8 0-100 H [facility] HospitalB-Type Natriuretic Ahwmkbh9620-14-17 19:31:00* Test Item Value Reference Range Interpretation Comments B-Type Natriuretic Peptide (test code = 02882-8) 219.8 0-100 H [facility] HospitalB-Type Natriuretic Lzdhrxa3363-56-71 19:31:00* Test Item Value Reference Range Interpretation Comments B-Type Natriuretic Peptide (test code = 69554-6) 219.8 0-100 H [facility] HospitalCreatine Kinase PF4503-73-23 19:27:00* Test Item Value Reference Range Interpretation Comments Creatine Kinase MB (test code = 44067-0) 5.50 0-5.0 H [facility] HospitalTroponin F8219-01-20 19:27:00* Test Item Value Reference Range Interpretation Comments Troponin I (test code = UGA8266) 0.015 0-0.300 [facility] Dgsjj2506-11-55 19:21:00* Test Item Value Reference Range Interpretation Comments Sodium Level (test code = 2951-2) 133 136-145 L [facility] HospitalPotassium Qgeln8915-77-46 19:21:00* Test Item Value Reference Range Interpretation Comments Potassium Level (test code = 2823-3) 4.0 3.5-5.1 [facility] HospitalChloride Osekc1138-34-86 19:21:00* Test Item Value Reference Range Interpretation Comments Chloride Level (test code = 2075-0) 97 98-107 L [facility] HospitalCarbon Dioxide Xmbcx5898-31-32 19:21:00* Test Item Value Reference Range Interpretation Comments Carbon Dioxide Level (test code = 2028-9) 27 22-29 [facility] HospitalAnion Atu8699-66-08 19:21:00* Test Item Value Reference Range Interpretation Comments Anion Gap (test code = 30300-1) 13.0 8-16 [facility] HospitalBlood Urea Bhkcubza5025-93-06 19:21:00* Test Item Value Reference Range Interpretation Comments Blood Urea Nitrogen (test code = 3094-0) 18 7-26 [facility] HospitalCreatinine2019-04-05 19:21:00* Test Item Value Reference Range Interpretation Comments Creatinine (test code = 2160-0) 0.96 0.57-1.11 [facility] HospitalBUN/Creatinine Riviv3425-18-39 19:21:00* Test Item Value Reference Range Interpretation Comments BUN/Creatinine Ratio (test code = 3097-3) 19 6-25 [facility] HospitalEstimat Glomerular Filtration Rate 2018-12-21 19:21:00* Test Item Value Reference Range Interpretation Comments Estimat Glomerular Filtration Rate (test code = 863091189) 55 >60 L Ranges were taken from the National Kidney Disease Education Program and the [facility] literature.Reference ranges:60 or greater: Ofwxgp89-81 ( for 3 consecutive months): Chronic kidney disease 15 or less: Kidney failureKell West Regional HospitalGlucose Lzqtb3009-37-65 19:21:00* Test Item Value Reference Range Interpretation Comments Glucose Level (test code = ZLW0355) 104 74-118 [facility] HospitalCalcium Yeyee3143-79-35 19:21:00* Test Item Value Reference Range Interpretation Comments Calcium Level (test code = 75672-5) 10.2 8.4-10.2 [facility] Nwiuxsshe8877-28-00 19:21:00* Test Item Value Reference Range Interpretation Comments Total Bilirubin (test code = 1975-2) 0.7 0.2-1.2 [facility] HospitalAspartate Amino Transf (AST/SGOT) 2018-12-21 19:21:00* Test Item Value Reference Range Interpretation Comments Aspartate Amino Transf (AST/SGOT) (test code = Aspartate Amino Transf (AST/SGOT)) 26 5-34 [facility] HospitalAlanine Aminotransferase (ALT/SGPT) 2018-12-21 19:21:00* Test Item Value Reference Range Interpretation Comments Alanine Aminotransferase (ALT/SGPT) (test code = 1742-6) 16 0-55 [facility] HospitalTotal Kiqjftl9581-72-44 19:21:00* Test Item Value Reference Range Interpretation Comments Total Protein (test code = 2885-2) 7.9 6.5-8.1 [facility] HospitalAlbumin2019-04-05 19:21:00* Test Item Value Reference Range Interpretation Comments Albumin (test code = 1751-7) 4.2 3.5-5.0 [facility] HospitalGlobulin2019-04-05 19:21:00* Test Item Value Reference Range Interpretation Comments Globulin (test code = 66016-2) 3.7 2.3-3.5 H [facility] HospitalAlbumin/Globulin Simgj6604-05-22 19:21:00 * Test Item Value Reference Range Interpretation Comments Albumin/Globulin Ratio (test code = 1759-0) 1.1 0.8-2.0 [facility] HospitalAlkaline Ulcxozfxmip6205-25-05 19:21:00* Test Item Value Reference Range Interpretation Comments Alkaline Phosphatase (test code = 6768-6) 85 40-150 [facility] HospitalCreatine Ydqcvx8145-02-16 19:21:00* Test Item Value Reference Range Interpretation Comments Creatine Kinase (test code = 2157-6) 108 29-168 [facility] HospitalProthrombin Wjek4439-24-53 19:20:00* Test Item Value Reference Range Interpretation Comments Prothrombin Time (test code = 5902-2) 12.4 11.9-14.5 [facility] HospitalProthromb Time International Ratio 2018-12-21 19:20:00* Test Item Value Reference Range Interpretation Comments Prothromb Time International Ratio (test code = 6301-6) 0.88 Oral Anticoagulant Therapy INR Values:1. Low Intensity Therapy 1.5 - 2.02 . Moderate Intensity Therapy 2.0 - 3.03. High Intensity Therapy(1) 2.5 - 3. 54. High Intensity Therapy(2) 3.0 - 4.05. Panic Value INR > 5.0 [facility] HospitalActivated Partial Thromboplast Time 2018-12-21 19:20:00* Test Item Value Reference Range Interpretation Comments Activated Partial Thromboplast Time (test code = 09982-9) 31.5 23.8-35.5 [facility] HospitalProthrombin Vkbx7952-79-42 19:20:00* Test Item Value Reference Range Interpretation Comments Prothrombin Time (test code = 5902-2) 12.4 11.9-14.5 [facility] HospitalProthromb Time International Ratio 2018-12-21 19:20:00* Test Item Value Reference Range Interpretation Comments Prothromb Time International Ratio (test code = 6301-6) 0.88 Oral Anticoagulant Therapy INR Values:1. Low Intensity Therapy 1.5 - 2.02 . Moderate Intensity Therapy 2.0 - 3.03. High Intensity Therapy(1) 2.5 - 3. 54. High Intensity Therapy(2) 3.0 - 4.05. Panic Value INR > 5.0 [facility] HospitalActivated Partial Thromboplast Time 2018-12-21 19:20:00* Test Item Value Reference Range Interpretation Comments Activated Partial Thromboplast Time (test code = 89798-1) 31.5 23.8-35.5 [facility] HospitalProthrombin Aqzz5243-81-77 19:20:00* Test Item Value Reference Range Interpretation Comments Prothrombin Time (test code = 5902-2) 12.4 11.9-14.5 [facility] HospitalProthromb Time International Ratio 2018-12-21 19:20:00* Test Item Value Reference Range Interpretation Comments Prothromb Time International Ratio (test code = 6301-6) 0.88 Oral Anticoagulant Therapy INR Values:1. Low Intensity Therapy 1.5 - 2.02 . Moderate Intensity Therapy 2.0 - 3.03. High Intensity Therapy(1) 2.5 - 3. 54. High Intensity Therapy(2) 3.0 - 4.05. Panic Value INR > 5.0 [facility] HospitalActivated Partial Thromboplast Time 2018-12-21 19:20:00* Test Item Value Reference Range Interpretation Comments Activated Partial Thromboplast Time (test code = 97267-7) 31.5 23.8-35.5 [facility] HospitalProthrombin Scli0018-65-26 19:20:00* Test Item Value Reference Range Interpretation Comments Prothrombin Time (test code = 5902-2) 12.4 11.9-14.5 [facility] HospitalProthromb Time International Ratio 2018-12-21 19:20:00* Test Item Value Reference Range Interpretation Comments Prothromb Time International Ratio (test code = 6301-6) 0.88 Oral Anticoagulant Therapy INR Values:1. Low Intensity Therapy 1.5 - 2.02 . Moderate Intensity Therapy 2.0 - 3.03. High Intensity Therapy(1) 2.5 - 3. 54. High Intensity Therapy(2) 3.0 - 4.05. Panic Value INR > 5.0 [facility] HospitalActivated Partial Thromboplast Time 2018-12-21 19:20:00* Test Item Value Reference Range Interpretation Comments Activated Partial Thromboplast Time (test code = 49155-0) 31.5 23.8-35.5 [facility] HospitalWhite Blood Xqlrh5299-06-52 19:18:00* Test Item Value Reference Range Interpretation Comments White Blood Count (test code = 6690-2) 8.83 4.8-10.8 [facility] HospitalRed Blood Rduad6828-68-93 19:18:00* Test Item Value Reference Range Interpretation Comments Red Blood Count (test code = 789-8) 4.76 3.6-5.1 [facility] HospitalHemoglobin2019-04-05 19:18:00* Test Item Value Reference Range Interpretation Comments Hemoglobin (test code = 01807-4) 14.4 12.0-16.0 [facility] HospitalHematocrit2019-04-05 19:18:00* Test Item Value Reference Range Interpretation Comments Hematocrit (test code = 4544-3) 42.7 34.2-44.1 [facility] HospitalMean Corpuscular Fszxtd1823-94-46 19:18:00* Test Item Value Reference Range Interpretation Comments Mean Corpuscular Volume (test code = 787-2) 89.7 81-99 [facility] HospitalMean Corpuscular Twkznmouiy7519-65-39 19:18:00* Test Item Value Reference Range Interpretation Comments Mean Corpuscular Hemoglobin (test code = 785-6) 30.3 28-32 [facility] Hem[facility] Concent 2018-12-21 19:18:00* Test Item Value Reference Range Interpretation Comments Mean Corpuscular Hemoglobin Concent (test code = 786-4) 33.7 31-35 [facility] HospitalRed Cell Distribution Czixy7245-85-94 19:18:00* Test Item Value Reference Range Interpretation Comments Red Cell Distribution Width (test code = 82912-1) 12.1 11.7 -14.4 [facility] HospitalPlatelet Ktvkb2561-87-82 19:18:00* Test Item Value Reference Range Interpretation Comments Platelet Count (test code = 777-3) 239 140-360 [facility] HospitalNeutrophils (%) (Auto)2018-12-21 19:18:00 * Test Item Value Reference Range Interpretation Comments Neutrophils (%) (Auto) (test code = 18496-3) 72.8 38.7-80.0 [facility] HospitalLymphocytes (%) (Auto)2018-12-21 19:18:00 * Test Item Value Reference Range Interpretation Comments Lymphocytes (%) (Auto) (test code = 736-9) 17.0 18.0-39.1 L [facility] (Auto)2018-12-21 19:18:00* Test Item Value Reference Range Interpretation Comments Monocytes (%) (Auto) (test code = 5905-5) 6.7 4.4-11.3 [facility]Eosinophils (%) (Auto)2018-12-21 19:18:00 * Test Item Value Reference Range Interpretation Comments Eosinophils (%) (Auto) (test code = 713-8) 2.2 0.0-6.0 [facility]Bas[facility] (%) (Auto)2018-12-21 19:18:00* Test Item Value Reference Range Interpretation Comments Basophils (%) (Auto) (test code = 706-2) 0.5 0.0-1.0 [facility] HospitalIM GRANULOCYTES %2018-12-21 19:18:00* Test Item Value Reference Range Interpretation Comments IM GRANULOCYTES % (test code = IM GRANULOCYTES %) 0.8 0.0- 1.0 [facility] HospitalNeutrophils # (Auto)2018-12-21 19:18:00* Test Item Value Reference Range Interpretation Comments Neutrophils # (Auto) (test code = 751-8) 6.4 2.1-6.9 [facility] HospitalLymphocytes # (Auto)2018-12-21 19:18:00* Test Item Value Reference Range Interpretation Comments Lymphocytes # (Auto) (test code = 72945-0) 1.5 1.0-3.2 [facility]Mon[facility] # (Auto)2018-12-21 19:18:00* Test Item Value Reference Range Interpretation Comments Monocytes # (Auto) (test code = 742-7) 0.6 0.2-0.8 [facility]Eosinophils # (Auto)2018-12-21 19:18:00* Test Item Value Reference Range Interpretation Comments Eosinophils # (Auto) (test code = 711-2) 0.2 0.0-0.4 [facility]Basophils # (Auto)2018-12-21 19:18:00* Test Item Value Reference Range Interpretation Comments Basophils # (Auto) (test code = 704-7) 0.0 0.0-0.1 [facility] HospitalAbsolute Immature Granulocyte (auto 2018-12-21 19:18:00* Test Item Value Reference Range Interpretation Comments Absolute Immature Granulocyte (auto (inocente t code = Absolute Immature Granulocyte (auto) 0.07 0-0.1 [facility] HospitalUrine Lblhn9648-06-87 18:43:00* Test Item Value Reference Range Interpretation Comments Urine Color (test code = 5778-6) YELLOW YELLOW [facility] HospitalU[facility] Jaojbnb0069-79-70 18:43:00* Test Item Value Reference Range Interpretation Comments Urine Clarity (test code = 75442-7) CLEAR CLEAR [facility] HospitalU[facility] Specific Uyiqtap9082-57-30 18:43:00 * Test Item Value Reference Range Interpretation Comments Urine Specific [place] (test code = 5811-5) 1.015 1.010-1.02 5 [facility] HospitalU[facility] [id number] 18:43:00* Test Item Value Reference Range Interpretation Comments Urine pH (test code = 82211-1) 8 5-7 H [facility] HospitalU[facility] Leukocyte Fuwyraoq4564-37-39 18:43:00* Test Item Value Reference Range Interpretation Comments Urine Leukocyte Esterase (test code = 5799-2) TRACE NEGATIVE H [facility] HospitalU[facility] Uvpaqry7836-48-74 18:43:00* Test Item Value Reference Range Interpretation Comments Urine Nitrite (test code = 35662-1) NEGATIVE NEGATIVE [facility] HospitalU[facility] Axkfloa1434-56-03 18:43:00* Test Item Value Reference Range Interpretation Comments Urine Protein (test code = 5804-0) NEGATIVE NEGATIVE [facility] HospitalU[facility] Glucose (UA)2018-12-21 18:43:00* Test Item Value Reference Range Interpretation Comments Urine Glucose (UA) (test code = 2349-9) NEGATIVE NEGATIVE [facility] HospitalU[facility] Guzwopt1477-97-78 18:43:00* Test Item Value Reference Range Interpretation Comments Urine Ketones (test code = 72744-8) NEGATIVE NEGATIVE [facility] HospitalU[facility] Ojgtqaumddzn6947-90-46 18:43:00* Test Item Value Reference Range Interpretation Comments Urine Urobilinogen (test code = 63523-5) 0.2 0.2-1 [facility] Brcjavarn0375-82-81 18:43:00* Test Item Value Reference Range Interpretation Comments Urine Bilirubin (test code = 1978-6) NEGATIVE NEGATIVE [facility] Inxwd5863-63-81 18:43:00* Test Item Value Reference Range Interpretation Comments Urine Blood (test code = 38913-2) 2+ NEGATIVE H [facility] HospitalU[facility] MDJ3839-35-29 18:43:00* Test Item Value Reference Range Interpretation Comments Urine WBC (test code = 5821-4) 6-10 0-5 H [facility] JEM5092-26-70 18:43:00* Test Item Value Reference Range Interpretation Comments Urine RBC (test code = 82712-9) 6-10 0-5 H [facility] HospitalU[facility] Ymrfcyvs9309-48-81 18:43:00* Test Item Value Reference Range Interpretation Comments Urine Bacteria (test code = 63394-6) MANY NONE H [facility] HospitalU[facility] Epithelial Cpwvh4008-57-24 18:43:00 * Test Item Value Reference Range Interpretation Comments Urine Epithelial Cells (test code = 51094-7) FEW NONE [facility] Wrvfk0335-97-83 18:43:00* Test Item Value Reference Range Interpretation Comments Urine Color (test code = 5778-6) YELLOW YELLOW [facility] Nnqgora5652-27-99 18:43:00* Test Item Value Reference Range Interpretation Comments Urine Clarity (test code = 25089-6) CLEAR CLEAR [facility] HospitalU[facility] Specific Oomoslj4904-40-81 18:43:00 * Test Item Value Reference Range Interpretation Comments Urine Specific [place] (test code = 5811-5) 1.015 1.010-1.02 5 [facility] HospitalU[facility] oA1730-71-05 18:43:00* Test Item Value Reference Range Interpretation Comments Urine pH (test code = 78861-6) 8 5-7 H [facility] Leukocyte Ggoljqtc8099-11-83 18:43:00* Test Item Value Reference Range Interpretation Comments Urine Leukocyte Esterase (test code = 5799-2) TRACE NEGATIVE H [facility] Jzarpua1587-04-00 18:43:00* Test Item Value Reference Range Interpretation Comments Urine Nitrite (test code = 01738-4) NEGATIVE NEGATIVE [facility] Njxvzbc3320-92-15 18:43:00* Test Item Value Reference Range Interpretation Comments Urine Protein (test code = 5804-0) NEGATIVE NEGATIVE [facility] Glucose (UA)2018-12-21 18:43:00* Test Item Value Reference Range Interpretation Comments Urine Glucose (UA) (test code = 2349-9) NEGATIVE NEGATIVE [facility] Hpveyjo5250-70-91 18:43:00* Test Item Value Reference Range Interpretation Comments Urine Ketones (test code = 97736-0) NEGATIVE NEGATIVE [facility] Dprzylmyhzxm2874-30-12 18:43:00* Test Item Value Reference Range Interpretation Comments Urine Urobilinogen (test code = 01446-0) 0.2 0.2-1 [facility] HospitalU[facility] Xnskgxfff9169-40-30 18:43:00* Test Item Value Reference Range Interpretation Comments Urine Bilirubin (test code = 1978-6) NEGATIVE NEGATIVE [facility] Wekim5713-75-25 18:43:00* Test Item Value Reference Range Interpretation Comments Urine Blood (test code = 11642-9) 2+ NEGATIVE H [facility] [id number] 18:43:00* Test Item Value Reference Range Interpretation Comments Urine WBC (test code = 5821-4) 6-10 0-5 H [facility] [id number] 18:43:00* Test Item Value Reference Range Interpretation Comments Urine RBC (test code = 00867-1) 6-10 0-5 H [facility] Upzwxffk1084-33-70 18:43:00* Test Item Value Reference Range Interpretation Comments Urine Bacteria (test code = 08760-3) MANY NONE H [facility] HospitalUrine Epithelial Aoiwj5577-79-92 18:43:00 * Test Item Value Reference Range Interpretation Comments Urine Epithelial Cells (test code = 87875-7) FEW NONE [facility] HospitalCreatine Kinase XO5133-07-83 04:59:00* Test Item Value Reference Range Interpretation Comments Creatine Kinase MB (test code = 52985-0) 4.70 0-5.0 [facility] HospitalTroponin [id number] 04:59:00* Test Item Value Reference Range Interpretation Comments Troponin I (test code = PIO4426) 0.005 0-0.300 [facility] HospitalCreatine Smpwdw6634-77-12 04:55:00* Test Item Value Reference Range Interpretation Comments Creatine Kinase (test code = 2157-6) 103 29-168 [facility] Ykcoz4803-26-83 01:44:00* Test Item Value Reference Range Interpretation Comments Sodium Level (test code = 2951-2) 135 136-145 L [facility] HospitalPotassium Ejybr7402-37-11 01:44:00* Test Item Value Reference Range Interpretation Comments Potassium Level (test code = 2823-3) 3.9 3.5-5.1 [facility] HospitalChloride Qfjvp1198-80-91 01:44:00* Test Item Value Reference Range Interpretation Comments Chloride Level (test code = 2075-0) 101 98-107 [facility] HospitalAnion Scc0515-86-28 01:39:00* Test Item Value Reference Range Interpretation Comments Anion Gap (test code = 00611-0) 12.9 8-16 [facility] HospitalMagnesium Djvsd6192-27-64 01:39:00* Test Item Value Reference Range Interpretation Comments Magnesium Level (test code = 04712-0) 2.0 1.3-2.1 [facility] HospitalCarbon Dioxide Uxnnq2437-25-19 01:34:00* Test Item Value Reference Range Interpretation Comments Carbon Dioxide Level (test code = 2028-9) 25 22-29 [facility] HospitalBlood Urea Oyuqjtmc8311-79-43 01:34:00* Test Item Value Reference Range Interpretation Comments Blood Urea Nitrogen (test code = 3094-0) 17 7-26 [facility] HospitalCreatinine2018-05-13 01:34:00* Test Item Value Reference Range Interpretation Comments Creatinine (test code = 2160-0) 0.89 0.57-1.11 [facility] HospitalBUN/Creatinine Xggyc8042-04-83 01:34:00* Test Item Value Reference Range Interpretation Comments BUN/Creatinine Ratio (test code = 3097-3) 19 6-25 [facility] HospitalEstimat Glomerular Filtration Rate 2018-01-28 01:34:00* Test Item Value Reference Range Interpretation Comments Estimat Glomerular Filtration Rate (test code = 61185-4) 60 >60 Ranges were taken from the National Kidney Disease Education Program and the [facility] literature.Reference ranges:60 or greater: Wuplqm47-86 ( for 3 consecutive months): Chronic kidney disease 15 or less: Kidney failureK[facility] HospitalGlucose Hdwuf6462-82-34 01:34:00* Test Item Value Reference Range Interpretation Comments Glucose Level (test code = WZS2208) 106 74-118 [facility] HospitalCalcium Wxywm2140-11-43 01:34:00* Test Item Value Reference Range Interpretation Comments Calcium Level (test code = 76146-4) 9.7 8.4-10.2 [facility] HospitalTotal Rgfzdplzf8212-08-66 01:34:00* Test Item Value Reference Range Interpretation Comments Total Bilirubin (test code = 1975-2) 0.4 0.2-1.2 [facility] HospitalAspartate Amino Transf (AST/SGOT) 2018-01-28 01:34:00* Test Item Value Reference Range Interpretation Comments Aspartate Amino Transf (AST/SGOT) (test code = Aspartate Amino Transf (AST/SGOT)) 20 5-34 [facility] HospitalAlanine Aminotransferase (ALT/SGPT) 2018-01-28 01:34:00* Test Item Value Reference Range Interpretation Comments Alanine Aminotransferase (ALT/SGPT) (test code = 1742-6) 14 0-55 [facility] HospitalTotal Yjedbav2529-67-01 01:34:00* Test Item Value Reference Range Interpretation Comments Total Protein (test code = 2885-2) 7.0 6.5-8.1 [facility] HospitalAlbumin2018-05-13 01:34:00* Test Item Value Reference Range Interpretation Comments Albumin (test code = 1751-7) 3.6 3.5-5.0 [facility] HospitalGlobulin2018-05-13 01:34:00* Test Item Value Reference Range Interpretation Comments Globulin (test code = 91800-0) 3.4 2.3-3.5 [facility] HospitalAlbumin/Globulin Wpyyy8308-49-49 01:34:00 * Test Item Value Reference Range Interpretation Comments Albumin/Globulin Ratio (test code = 1759-0) 1.1 0.8-2.0 [facility] HospitalAlkaline Yemcbrzgpei5287-21-06 01:34:00* Test Item Value Reference Range Interpretation Comments Alkaline Phosphatase (test code = 6768-6) 88 40-150 [facility] HospitalActivated Partial Thromboplast Time 2018-01-28 01:21:00* Test Item Value Reference Range Interpretation Comments Activated Partial Thromboplast Time (test code = 21605-6) 29.7 23.8-35.5 [facility] HospitalUrine BAW1647-01-20 01:20:00* Test Item Value Reference Range Interpretation Comments Urine WBC (test code = 5821-4) 0-5 0-5 [facility] HospitalUrine HKN8769-32-66 01:20:00* Test Item Value Reference Range Interpretation Comments Urine RBC (test code = 24966-7) 6-10 0-5 H [facility] HospitalUrine Cpfiltya0740-24-52 01:20:00* Test Item Value Reference Range Interpretation Comments Urine Bacteria (test code = 41483-0) NONE NONE [facility] HospitalUrine Epithelial Yjgej1443-52-59 01:20:00 * Test Item Value Reference Range Interpretation Comments Urine Epithelial Cells (test code = 02159-2) NONE NONE [facility] HospitalUrine Cxoyq7973-25-75 01:17:00* Test Item Value Reference Range Interpretation Comments Urine Color (test code = 5778-6) YELLOW YELLOW [facility] HospitalUrine Ybdpors5097-60-48 01:17:00* Test Item Value Reference Range Interpretation Comments Urine Clarity (test code = 39573-8) CLEAR CLEAR [facility] Specific Wtrmtiu6885-05-58 01:17:00 * Test Item Value Reference Range Interpretation Comments Urine Specific [place] (test code = 5811-5) 1.015 1.010-1.02 5 [facility] HospitalUrine aM6748-94-51 01:17:00* Test Item Value Reference Range Interpretation Comments Urine pH (test code = 27316-1) 7 5-7 [facility] HospitalUrine Leukocyte Ydgbwxzc8997-98-55 01:17:00* Test Item Value Reference Range Interpretation Comments Urine Leukocyte Esterase (test code = 5799-2) NEGATIVE NEGATIVE [facility] HospitalUrine Rkwidsu4551-03-31 01:17:00* Test Item Value Reference Range Interpretation Comments Urine Nitrite (test code = 07249-1) NEGATIVE NEGATIVE [facility] HospitalUrine Junqkma5287-98-32 01:17:00* Test Item Value Reference Range Interpretation Comments Urine Protein (test code = 5804-0) NEGATIVE NEGATIVE [facility] HospitalUrine Glucose (UA)2018-01-28 01:17:00* Test Item Value Reference Range Interpretation Comments Urine Glucose (UA) (test code = 2349-9) NEGATIVE NEGATIVE [facility] HospitalUrine Mbrcwyc1450-27-82 01:17:00* Test Item Value Reference Range Interpretation Comments Urine Ketones (test code = 60849-4) NEGATIVE NEGATIVE [facility] HospitalUrine Gdseyktcjsqd1121-31-68 01:17:00* Test Item Value Reference Range Interpretation Comments Urine Urobilinogen (test code = 53414-8) 0.2 0.2-1 [facility] HospitalUrine Jjjqvesbe9271-83-77 01:17:00* Test Item Value Reference Range Interpretation Comments Urine Bilirubin (test code = 1978-6) NEGATIVE NEGATIVE [facility] HospitalUrine Ynoyw5907-64-19 01:17:00* Test Item Value Reference Range Interpretation Comments Urine Blood (test code = 36908-9) TRACE NEGATIVE H [facility] HospitalProthrombin Huxi3457-19-59 01:16:00* Test Item Value Reference Range Interpretation Comments Prothrombin Time (test code = 5902-2) 12.6 11.9-14.5 [facility] HospitalProthromb Time International Ratio 2018-01-28 01:16:00* Test Item Value Reference Range Interpretation Comments Prothromb Time International Ratio (test code = 6301-6) 1.02 Oral Anticoagulant Therapy INR Values:1. Low Intensity Therapy 1.5 - 2.02 . Moderate Intensity Therapy 2.0 - 3.03. High Intensity Therapy(1) 2.5 - 3. 54. High Intensity Therapy(2) 3.0 - 4.05. Panic Value INR > 5.0 [facility] HospitalWhite Blood Qfssu2531-31-18 01:13:00* Test Item Value Reference Range Interpretation Comments White Blood Count (test code = 6690-2) 6.94 4.8-10.8 [facility] HospitalRed Blood Epzxb6785-48-66 01:13:00* Test Item Value Reference Range Interpretation Comments Red Blood Count (test code = 789-8) 4.21 3.6-5.1 [facility] HospitalHemoglobin2018-05-13 01:13:00* Test Item Value Reference Range Interpretation Comments Hemoglobin (test code = 47429-6) 12.5 12.0-16.0 [facility] HospitalHematocrit2018-05-13 01:13:00* Test Item Value Reference Range Interpretation Comments Hematocrit (test code = 4544-3) 37.3 34.2-44.1 [facility] HospitalMean Corpuscular Cdwois0063-00-08 01:13:00* Test Item Value Reference Range Interpretation Comments Mean Corpuscular Volume (test code = 787-2) 88.6 81-99 [facility] HospitalMean Corpuscular Gkgjzgdzhz0267-70-65 01:13:00* Test Item Value Reference Range Interpretation Comments Mean Corpuscular Hemoglobin (test code = 785-6) 29.7 28-32 [facility] HospitalMean Corpuscular Hemoglobin Concent 2018-01-28 01:13:00* Test Item Value Reference Range Interpretation Comments Mean Corpuscular Hemoglobin Concent (test code = 786-4) 33.5 31-35 [facility] HospitalRed Cell Distribution Kvabc4589-81-21 01:13:00* Test Item Value Reference Range Interpretation Comments Red Cell Distribution Width (test code = 81894-1) 13.2 11.7 -14.4 [facility] HospitalPlatelet Rpobo5579-68-94 01:13:00* Test Item Value Reference Range Interpretation Comments Platelet Count (test code = 777-3) 240 140-360 [facility] HospitalNeutrophils (%) (Auto)2018-01-28 01:13:00 * Test Item Value Reference Range Interpretation Comments Neutrophils (%) (Auto) (test code = 20887-3) 63.6 38.7-80.0 [facility] HospitalLymphocytes (%) (Auto)2018-01-28 01:13:00 * Test Item Value Reference Range Interpretation Comments Lymphocytes (%) (Auto) (test code = 736-9) 21.0 18.0-39.1 [facility] HospitalMonocytes (%) (Auto)2018-01-28 01:13:00* Test Item Value Reference Range Interpretation Comments Monocytes (%) (Auto) (test code = 5905-5) 10.4 4.4-11.3 [facility] HospitalEosinophils (%) (Auto)2018-01-28 01:13:00 * Test Item Value Reference Range Interpretation Comments Eosinophils (%) (Auto) (test code = 713-8) 4.0 0.0-6.0 [facility] HospitalBasophils (%) (Auto)2018-01-28 01:13:00* Test Item Value Reference Range Interpretation Comments Basophils (%) (Auto) (test code = 706-2) 0.4 0.0-1.0 [facility] HospitalIM GRANULOCYTES %2018-01-28 01:13:00* Test Item Value Reference Range Interpretation Comments IM GRANULOCYTES % (test code = IM GRANULOCYTES %) 0.6 0.0- 1.0 [facility] HospitalNeutrophils # (Auto)2018-01-28 01:13:00* Test Item Value Reference Range Interpretation Comments Neutrophils # (Auto) (test code = 751-8) 4.4 2.1-6.9 [facility] HospitalLymphocytes # (Auto)2018-01-28 01:13:00* Test Item Value Reference Range Interpretation Comments Lymphocytes # (Auto) (test code = 76379-6) 1.5 1.0-3.2 [facility] HospitalMonocytes # (Auto)2018-01-28 01:13:00* Test Item Value Reference Range Interpretation Comments Monocytes # (Auto) (test code = 742-7) 0.7 0.2-0.8 [facility] HospitalEosinophils # (Auto)2018-01-28 01:13:00* Test Item Value Reference Range Interpretation Comments Eosinophils # (Auto) (test code = 711-2) 0.3 0.0-0.4 [facility] HospitalBasophils # (Auto)2018-01-28 01:13:00* Test Item Value Reference Range Interpretation Comments Basophils # (Auto) (test code = 704-7) 0.0 0.0-0.1 [facility] HospitalAbsolute Immature Granulocyte (auto 2018-01-28 01:13:00* Test Item Value Reference Range Interpretation Comments Absolute Immature Granulocyte (auto (inocente t code = Absolute Immature Granulocyte (auto) 0.04 0-0.1 [facility] Ksnra6076-47-24 09:37:00* Test Item Value Reference Range Interpretation Comments Sodium Level (test code = 2951-2) 136 136-145 [facility] HospitalPotassium Joxoc1473-96-50 09:37:00* Test Item Value Reference Range Interpretation Comments Potassium Level (test code = 2823-3) 4.2 3.5-5.1 [facility] HospitalChloride Zbkzf9911-91-33 09:37:00* Test Item Value Reference Range Interpretation Comments Chloride Level (test code = 2075-0) 97 98-107 L [facility] HospitalCarbon Dioxide Zbxfh0738-51-15 09:37:00* Test Item Value Reference Range Interpretation Comments Carbon Dioxide Level (test code = 2028-9) 27 22-29 [facility] HospitalAnion Pxa8337-75-97 09:37:00* Test Item Value Reference Range Interpretation Comments Anion Gap (test code = 19839-3) 16.2 8-16 H [facility] HospitalBlood Urea Hszslcaz5635-49-34 09:37:00* Test Item Value Reference Range Interpretation Comments Blood Urea Nitrogen (test code = 3094-0) 17 7-26 [facility] HospitalCreatinine2018-04-25 09:37:00* Test Item Value Reference Range Interpretation Comments Creatinine (test code = 2160-0) 1.04 0.57-1.11 [facility] HospitalBUN/Creatinine Pmvar8241-04-27 09:37:00* Test Item Value Reference Range Interpretation Comments BUN/Creatinine Ratio (test code = 3097-3) 16 6-25 [facility] HospitalEstimat Glomerular Filtration Rate 2018-01-10 09:37:00* Test Item Value Reference Range Interpretation Comments Estimat Glomerular Filtration Rate (test code = 81600-4) 50 >60 L Ranges were taken from the National Kidney Disease Education Program and the [facility] literature.Reference ranges:60 or greater: Ymcdrh29-94 ( for 3 consecutive months): Chronic kidney disease 15 or less: Kidney failureKell [facility] HospitalGlucose Dywdg7177-05-69 09:37:00* Test Item Value Reference Range Interpretation Comments Glucose Level (test code = SAX4243) 165 74-118 H [facility] HospitalCalcium Aulub2992-62-69 09:37:00* Test Item Value Reference Range Interpretation Comments Calcium Level (test code = 47707-5) 9.6 8.4-10.2 [facility] HospitalUrine Qzdvhsmsuv6700-36-18 06:16:00* Test Item Value Reference Range Interpretation Comments Urine Osmolality (test code = 2695-5) 217 . 24 hr : 300 - 900 Random: 50 - 1400 After 12hr fluid restriction: >850Performed at: [facility] [address] [id number] Director: EARNEST Amaral MD, Phone: [phone] [facility]ester[facility] Osmolality 2018-01-09 06:16:00* Test Item Value Reference Range Interpretation Comments Serum Osmolality (test code = 2692-2) 243 280-301 L Verified by repeat analysisPerformed at: [facility] [address] [place] [id number] Director: EARNEST Amaral MD, Phone: [phone] [facility] HospitalUrine Uyypbxhvok3427-37-47 06:16:00* Test Item Value Reference Range Interpretation Comments Urine Osmolality (test code = 2695-5) 217 . 24 hr : 300 - 900 Random: 50 - 1400 After 12hr fluid restriction: >850Performed at: [facility] [address], [place], [place] [id number] Director: EARNEST Amaral MD, Phone: [phone] [facility] Osmolality 2018-01-09 06:16:00* Test Item Value Reference Range Interpretation Comments Serum Osmolality (test code = 2692-2) 243 280-301 L Verified by repeat analysisPerformed at: [facility] [address], [place], [place] [id number] Director: AERNEST Amaral MD, Phone: [phone] [facility] HospitalMagnesium Bwggq7355-66-62 06:59:00* Test Item Value Reference Range Interpretation Comments Magnesium Level (test code = 28827-9) 2.3 1.3-2.1 H [facility] HospitalWhite Blood Wdnad8900-21-73 06:17:00* Test Item Value Reference Range Interpretation Comments White Blood Count (test code = 6690-2) 7.81 4.8-10.8 [facility] HospitalRed Blood Jlcrm5335-64-30 06:17:00* Test Item Value Reference Range Interpretation Comments Red Blood Count (test code = 789-8) 3.61 3.6-5.1 [facility] HospitalHemoglobin2018-04-23 06:17:00* Test Item Value Reference Range Interpretation Comments Hemoglobin (test code = 24581-5) 10.6 12.0-16.0 L [facility] HospitalHematocrit2018-04-23 06:17:00* Test Item Value Reference Range Interpretation Comments Hematocrit (test code = 4544-3) 31.5 34.2-44.1 L [facility] HospitalMean Corpuscular Wboapw2773-56-06 06:17:00* Test Item Value Reference Range Interpretation Comments Mean Corpuscular Volume (test code = 787-2) 87.3 81-99 [facility] HospitalMean Corpuscular Tfakoeavwo3138-51-51 06:17:00* Test Item Value Reference Range Interpretation Comments Mean Corpuscular Hemoglobin (test code = 785-6) 29.4 28-32 [facility] HospitalMean Corpuscular Hemoglobin Concent 2018-01-08 06:17:00* Test Item Value Reference Range Interpretation Comments Mean Corpuscular Hemoglobin Concent (test code = 786-4) 33.7 31-35 [facility] HospitalRed Cell Distribution Rkglq7626-05-64 06:17:00* Test Item Value Reference Range Interpretation Comments Red Cell Distribution Width (test code = 02374-9) 13.2 11.7 -14.4 [facility] HospitalPlatelet Ghabi3176-56-12 06:17:00* Test Item Value Reference Range Interpretation Comments Platelet Count (test code = 777-3) 231 140-360 [facility] HospitalNeutrophils (%) (Auto)2018-01-08 06:17:00 * Test Item Value Reference Range Interpretation Comments Neutrophils (%) (Auto) (test code = 65783-2) 61.8 38.7-80.0 [facility] HospitalLymphocytes (%) (Auto)2018-01-08 06:17:00 * Test Item Value Reference Range Interpretation Comments Lymphocytes (%) (Auto) (test code = 736-9) 17.4 18.0-39.1 L [facility] HospitalMonocytes (%) (Auto)2018-01-08 06:17:00* Test Item Value Reference Range Interpretation Comments Monocytes (%) (Auto) (test code = 5905-5) 12.5 4.4-11.3 H [facility] HospitalEosinophils (%) (Auto)2018-01-08 06:17:00 * Test Item Value Reference Range Interpretation Comments Eosinophils (%) (Auto) (test code = 713-8) 6.9 0.0-6.0 H [facility] HospitalBasophils (%) (Auto)2018-01-08 06:17:00* Test Item Value Reference Range Interpretation Comments Basophils (%) (Auto) (test code = 706-2) 0.6 0.0-1.0 [facility] HospitalIM GRANULOCYTES %2018-01-08 06:17:00* Test Item Value Reference Range Interpretation Comments IM GRANULOCYTES % (test code = IM GRANULOCYTES %) 0.8 0.0- 1.0 [facility] HospitalNeutrophils # (Auto)2018-01-08 06:17:00* Test Item Value Reference Range Interpretation Comments Neutrophils # (Auto) (test code = 751-8) 4.8 2.1-6.9 [facility] HospitalLymphocytes # (Auto)2018-01-08 06:17:00* Test Item Value Reference Range Interpretation Comments Lymphocytes # (Auto) (test code = 32520-9) 1.4 1.0-3.2 [facility] HospitalMonocytes # (Auto)2018-01-08 06:17:00* Test Item Value Reference Range Interpretation Comments Monocytes # (Auto) (test code = 742-7) 1.0 0.2-0.8 H [facility] HospitalEosinophils # (Auto)2018-01-08 06:17:00* Test Item Value Reference Range Interpretation Comments Eosinophils # (Auto) (test code = 711-2) 0.5 0.0-0.4 H [facility] HospitalBasophils # (Auto)2018-01-08 06:17:00* Test Item Value Reference Range Interpretation Comments Basophils # (Auto) (test code = 704-7) 0.1 0.0-0.1 [facility] HospitalAbsolute Immature Granulocyte (auto 2018-01-08 06:17:00* Test Item Value Reference Range Interpretation Comments Absolute Immature Granulocyte (auto (inocente t code = Absolute Immature Granulocyte (auto) 0.06 0-0.1 [facility] HospitalUrine Chloride mmol/Hjj7582-67-08 06:13:00* Test Item Value Reference Range Interpretation Comments Urine Chloride mmol/Day (test code = 70817-4) Comment 110-250 No total volume submitted. Unable to calculate 24 hourresult.Performed at: [employer] [id number] Director: Drew alfaro MD, Phone: [phone] West Regional HospitalUrine Chloride mmol/Evi6963-57-73 06:13:00* Test Item Value Reference Range Interpretation Comments Urine Chloride mmol/Day (test code = 45658-2) Comment 110-250 No total volume submitted. Unable to calculate 24 hourresult.Performed at: [employer] [id number] Director: Drew alfaro MD, Phone: [phone] West Regional HospitalUrine Chloride 2018-01-07 12:27:00* Test Item Value Reference Range Interpretation Comments Urine Chloride (test code = 16512-7) 53 [facility] HospitalUrine Uugaznjr2831-11-55 12:27:00* Test Item Value Reference Range Interpretation Comments Urine Chloride (test code = 10130-6) 53 [facility] HospitalTotal Frpkpgpea7835-90-21 05:31:00* Test Item Value Reference Range Interpretation Comments Total Bilirubin (test code = 1975-2) 0.4 0.2-1.2 [facility] HospitalAspartate Amino Transf (AST/SGOT) 2018-01-07 05:31:00* Test Item Value Reference Range Interpretation Comments Aspartate Amino Transf (AST/SGOT) (test code = Aspartate Amino Transf (AST/SGOT)) 23 5-34 [facility] HospitalAlanine Aminotransferase (ALT/SGPT) 2018-01-07 05:31:00* Test Item Value Reference Range Interpretation Comments Alanine Aminotransferase (ALT/SGPT) (test code = 1742-6) 9 0-55 [facility] Yvncbht8162-55-73 05:31:00* Test Item Value Reference Range Interpretation Comments Total Protein (test code = 2885-2) 5.1 6.5-8.1 L [facility] HospitalAlbumin2018-04-22 05:31:00* Test Item Value Reference Range Interpretation Comments Albumin (test code = 1751-7) 2.6 3.5-5.0 L [facility] HospitalGlobulin2018-04-22 05:31:00* Test Item Value Reference Range Interpretation Comments Globulin (test code = 67288-7) 2.5 2.3-3.5 [facility] HospitalAlbumin/Globulin Sqfhw5206-80-91 05:31:00 * Test Item Value Reference Range Interpretation Comments Albumin/Globulin Ratio (test code = 1759-0) 1.0 0.8-2.0 [facility] HospitalAlkaline Xkmgioraycm8128-58-94 05:31:00* Test Item Value Reference Range Interpretation Comments Alkaline Phosphatase (test code = 6768-6) 58 40-150 [facility] HospitalUrine TLP4693-36-10 23:48:00* Test Item Value Reference Range Interpretation Comments Urine WBC (test code = 5821-4) 0-5 0-5 [facility] HospitalU[facility] UDD3025-39-96 23:48:00* Test Item Value Reference Range Interpretation Comments Urine RBC (test code = 26460-4) 6-10 0-5 H [facility] HospitalUrine Gdsqiesz1837-22-48 23:48:00* Test Item Value Reference Range Interpretation Comments Urine Bacteria (test code = 27975-6) NONE NONE [facility] HospitalUrine Epithelial Dbuwt6209-58-42 23:48:00 * Test Item Value Reference Range Interpretation Comments Urine Epithelial Cells (test code = 98062-6) RARE NONE [facility] HospitalUrine Wqlnv2463-29-99 23:37:00* Test Item Value Reference Range Interpretation Comments Urine Color (test code = 5778-6) YELLOW YELLOW [facility] HospitalU[facility] Rzkaaij5700-53-46 23:37:00* Test Item Value Reference Range Interpretation Comments Urine Clarity (test code = 11873-1) CLEAR CLEAR [facility] HospitalUrine Specific Abqlhsq5196-07-93 23:37:00 * Test Item Value Reference Range Interpretation Comments Urine Specific [place] (test code = 5811-5) 1.015 1.010-1.02 5 [facility] HospitalU[facility] xW7997-70-29 23:37:00* Test Item Value Reference Range Interpretation Comments Urine pH (test code = 47585-5) 7 5-7 [facility] Leukocyte Afzgpare8465-99-29 23:37:00* Test Item Value Reference Range Interpretation Comments Urine Leukocyte Esterase (test code = 5799-2) NEGATIVE NEGATIVE [facility] Ulufuja6843-40-26 23:37:00* Test Item Value Reference Range Interpretation Comments Urine Nitrite (test code = 51831-3) NEGATIVE NEGATIVE [facility] HospitalU[facility] Dabidtt9298-62-21 23:37:00* Test Item Value Reference Range Interpretation Comments Urine Protein (test code = 5804-0) 1+ NEGATIVE H [facility] HospitalUrine Glucose (UA)2018-01-05 23:37:00* Test Item Value Reference Range Interpretation Comments Urine Glucose (UA) (test code = 2349-9) NEGATIVE NEGATIVE [facility] HospitalU[facility] Eyhrurv2827-77-66 23:37:00* Test Item Value Reference Range Interpretation Comments Urine Ketones (test code = 94318-9) 1+ NEGATIVE H [facility] HospitalU[facility] Rnlscbppgphl9221-78-48 23:37:00* Test Item Value Reference Range Interpretation Comments Urine Urobilinogen (test code = 14559-8) 0.2 0.2-1 [facility] Foawuzwjh8271-48-41 23:37:00* Test Item Value Reference Range Interpretation Comments Urine Bilirubin (test code = 1978-6) NEGATIVE NEGATIVE [facility] Vkpjs4580-23-67 23:37:00* Test Item Value Reference Range Interpretation Comments Urine Blood (test code = 45036-9) TRACE NEGATIVE H [facility] HospitalU[facility] Opiates Hggdqv1949-45-91 18:58:00* Test Item Value Reference Range Interpretation Comments Urine Opiates Screen (test code = 52629-8) NEGATIVE NEGATIVE [facility] Barbiturates Yxtytb8259-87-37 18:58:00* Test Item Value Reference Range Interpretation Comments Urine Barbiturates Screen (test code = 021772127) NEGATIVE NEGA TIVE [facility] HospitalU[facility] Phencyclidine Zkvvuo6335-90-04 18:58:00* Test Item Value Reference Range Interpretation Comments Urine Phencyclidine Screen (test code = 32714-8) NEGATIVE NEGAT ASHLEY [facility] Amphetamines Iavcjp4800-67-49 18:58:00* Test Item Value Reference Range Interpretation Comments Urine Amphetamines Screen (test code = 76187-8) NEGATIVE NEGATI VE [facility] Methamphetamines Kvqxyx0791-90-92 18:58:00* Test Item Value Reference Range Interpretation Comments Urine Methamphetamines Screen (test code = Urine Metha mphetamines Screen) NEGATIVE NEGATIVE [facility] Benzodiazepines Vgphbi1189-65-79 18:58:00* Test Item Value Reference Range Interpretation Comments Urine Benzodiazepines Screen (test code = 38902-9) NEGATIVE NEG ATIVE [facility] Cocaine Hiztwl6769-05-42 18:58:00* Test Item Value Reference Range Interpretation Comments Urine Cocaine Screen (test code = 3398-5) NEGATIVE NEGATIVE [facility] Cannabinoids Ozxibu8844-65-53 18:58:00* Test Item Value Reference Range Interpretation Comments Urine Cannabinoids Screen (test code = 00896-5) NEGATIVE NEGATI VE THESE RESULTS ARE FOR MEDICAL TREATMENT ONLYTHIS REPORT CONTAINS UNCONFIR MED SCREENING RESULTS*POSITIVE RESULTS WILL BE CONFIRMED BY REFERENCE LAB UPON R EQUEST CUT-OFFDRUG CLASS CONCENTRATION ng/mLAmphetamines 1000Methamphetamines 1000Cocaine 300Opiate 300Phencyc lidine 25Cannabinoid 50Barbiturates 300Benzodiazepine 300Methadone 300[facility] HospitalU[facility] Methadone Vekvkq9392-02-13 18:58:00* Test Item Value Reference Range Interpretation Comments Urine Methadone Screen (test code = 84346-9) NEGATIVE NEGATIVE THESE RESULTS ARE FOR MEDICAL TREATMENT ONLYTHIS REPORT CONTAINS UNCONFIR MED SCREENING RESULTS*POSITIVE RESULTS WILL BE CONFIRMED BY REFERENCE LAB UPON R EQUEST CUT-OFFDRUG CLASS CONCENTRATION ng/mLAmphetamines 1000Methamphetamines 1000Cocaine Metabolite 300Opiate 300Phencyc lidine 25Cannabinoid 50Barbiturates 300Benzodiazepine 300Methadone 300[facility] HospitalU[facility] Opiates Lsbmzv7502-84-97 18:58:00* Test Item Value Reference Range Interpretation Comments Urine Opiates Screen (test code = 86139-8) NEGATIVE NEGATIVE [facility] Barbiturates Sloxxg8370-10-50 18:58:00* Test Item Value Reference Range Interpretation Comments Urine Barbiturates Screen (test code = 696816316) NEGATIVE NEGA TIVE [facility] HospitalU[facility] Phencyclidine Jjgakt2948-68-15 18:58:00* Test Item Value Reference Range Interpretation Comments Urine Phencyclidine Screen (test code = 49102-3) NEGATIVE NEGAT ASHLEY [facility] HospitalU[facility] Amphetamines Vilebt5711-48-46 18:58:00* Test Item Value Reference Range Interpretation Comments Urine Amphetamines Screen (test code = 41790-3) NEGATIVE NEGATI VE [facility] Methamphetamines Runxab9690-30-90 18:58:00* Test Item Value Reference Range Interpretation Comments Urine Methamphetamines Screen (test code = Urine Metha mphetamines Screen) NEGATIVE NEGATIVE [facility] Benzodiazepines Aeyqru2894-16-41 18:58:00* Test Item Value Reference Range Interpretation Comments Urine Benzodiazepines Screen (test code = 35727-8) NEGATIVE NEG ATIVE [facility] Cocaine Shitmo7210-39-46 18:58:00* Test Item Value Reference Range Interpretation Comments Urine Cocaine Screen (test code = 3398-5) NEGATIVE NEGATIVE [facility] Cannabinoids Geurno5733-87-18 18:58:00* Test Item Value Reference Range Interpretation Comments Urine Cannabinoids Screen (test code = 50995-6) NEGATIVE NEGATI VE THESE RESULTS ARE FOR MEDICAL TREATMENT ONLYTHIS REPORT CONTAINS UNCONFIR MED SCREENING RESULTS*POSITIVE RESULTS WILL BE CONFIRMED BY REFERENCE LAB UPON R EQUEST CUT-OFFDRUG CLASS CONCENTRATION ng/mLAmphetamines 1000Methamphetamines 1000Cocaine 300Opiate 300Phencyc lidine 25Cannabinoid 50Barbiturates 300Benzodiazepine 300Methadone 300[facility] Methadone Udydvi5040-82-49 18:58:00* Test Item Value Reference Range Interpretation Comments Urine Methadone Screen (test code = 61124-7) NEGATIVE NEGATIVE THESE RESULTS ARE FOR MEDICAL TREATMENT ONLYTHIS REPORT CONTAINS UNCONFIR MED SCREENING RESULTS*POSITIVE RESULTS WILL BE CONFIRMED BY REFERENCE LAB UPON R EQUEST CUT-OFFDRUG CLASS CONCENTRATION ng/mLAmphetamines 1000Methamphetamines 1000Cocaine Metabolite 300Opiate 300Phencyc lidine 25Cannabinoid 50Barbiturates 300Benzodiazepine 300Methadone 300[facility] HospitalFr Rkqdqtknq3212-53-46 18:33:00* Test Item Value Reference Range Interpretation Comments Free Thyroxine (test code = 3024-7) 1.12 0.9-1.8 [facility] HospitalFree Fxquvnuvc8912-81-39 18:33:00* Test Item Value Reference Range Interpretation Comments Free Thyroxine (test code = 3024-7) 1.12 0.9-1.8 [facility] Random Vqgwdf6785-99-84 18:30:00* Test Item Value Reference Range Interpretation Comments Urine Random Sodium (test code = 2955-3) 65 [facility] Qyqxovwkty2770-71-15 18:30:00* Test Item Value Reference Range Interpretation Comments Urine Creatinine (test code = 2161-8) 12.40 47-110 L [facility] Random Vrtnof0939-55-84 18:30:00* Test Item Value Reference Range Interpretation Comments Urine Random Sodium (test code = 2955-3) 65 [facility] Qetgzrhszf8278-82-40 18:30:00* Test Item Value Reference Range Interpretation Comments Urine Creatinine (test code = 2161-8) 12.40 47-110 L [facility] HospitalUric Rkfm5047-68-92 18:11:00* Test Item Value Reference Range Interpretation Comments Uric Acid (test code = 3084-1) 1.3 2.6-8.0 L [facility] HospitalUric Tklw9624-83-76 18:11:00* Test Item Value Reference Range Interpretation Comments Uric Acid (test code = 3084-1) 1.3 2.6-8.0 L [facility] HospitalThyroid Stimulating Hormone (TSH) 2018-01-05 18:06:00* Test Item Value Reference Range Interpretation Comments Thyroid Stimulating Hormone (TSH) (test code = 21616-1) 1.921 0.350-4.940 [facility] HospitalThyroid Stimulating Hormone (TSH) 2018-01-05 18:06:00* Test Item Value Reference Range Interpretation Comments Thyroid Stimulating Hormone (TSH) (test code = 37911-8) 1.921 0.350-4.940 [facility] Avofgwdpky0407-07-45 17:44:00* Test Item Value Reference Range Interpretation Comments Serum Osmolality (test code = 84529-2) 229 278-305 L [facility] HospitalTriglycerides Xbrfj4329-07-85 17:44:00* Test Item Value Reference Range Interpretation Comments Triglycerides Level (test code = 2571-8) 74 0-149 [facility] Ezoayhuupg4363-05-90 17:44:00* Test Item Value Reference Range Interpretation Comments Serum Osmolality (test code = 98279-7) 229 278-305 L [facility] HospitalTriglycerides Xmugt3911-27-41 17:44:00* Test Item Value Reference Range Interpretation Comments Triglycerides Level (test code = 2571-8) 74 0-149 [facility] Rhianpo5155-16-64 17:16:00* Test Item Value Reference Range Interpretation Comments Bedside Glucose (test code = 89346-9) 141 70-120 [id number] 2018-01-05 17:16:00* Test Item Value Reference Range Interpretation Comments Bedside Glucose (test code = 23086-8) 141 70-120 H Meter ID: [id number] [facility] HospitalAmylase Level 2018-01-05 02:12:00* Test Item Value Reference Range Interpretation Comments Amylase Level (test code = 1798-8) 59 25-125 [facility] HospitalLipase2018-04-20 02:12:00* Test Item Value Reference Range Interpretation Comments Lipase (test code = 3040-3) 54 8-78 [facility] HospitalAmylase Dpeak9438-84-95 02:12:00* Test Item Value Reference Range Interpretation Comments Amylase Level (test code = 1798-8) 59 25-125 [facility] HospitalLipase2018-04-20 02:12:00* Test Item Value Reference Range Interpretation Comments Lipase (test code = 3040-3) 54 8-78 [facility] HospitalELECTROLYTES2018-04-06 11:00:0014.4 [facility] YlzaqbfPGKVTHIQAUKD0553-37-83 11:00:0055[facility]annELECTROLYTES 2017-12-22 11:00:000.94[facility] HoohhdqCACEZLFCUNRC1569-38-33 11:00:60048 [facility] LwnwkicQUAYBGXTYOIW6035-00-62 11:00:0023[facility]annELECTROLYTES 2017-12-22 11:00:40378Ftwkslly AgstpmmFINTOEEPWKTB3691-49-09 11:00:004.4[facility] ZsohfqiKPFRYXEVUNGQ5734-76-91 11:00:0018[facility] WzwpwyfTGYTIVOIVQVJ5622-98-29 11:00:62650Nhqrvlmy ZctkptxMYLNZNPEHTUI0363-64-03 11:00:008.9[facility] SWQXQCTJOP4495-69-27 11:00:0065.3[facility] WeoygzfZWERTPFBSA1472-55-62 11:00:00 23.6[facility] VjgrdmqVRHNMXWFNZ3591-10-65 11:00:007.6[facility]annHEMATOLOGY 2017-12-22 11:00:003.0[facility] GmevltvEFZSHOZVSS1602-35-15 11:00:000.3[facility] XeemqgtZLVINMSSTT4923-70-42 11:00:000.7[facility] TcwcmsaEAWAOMYXCO0556-86-57 11:00:002.2[facility] DusbtguXJDGNEZLHC6271-88-37 11:00:000.5[facility] VLYKVCLVRM1721-60-30 11:00:006.0[facility] IpmvhesMIBXUWNFQB1415-23-64 11:00:006.7 [facility] PsogsdoCJLZYMGCPG5966-83-12 11:00:0013.4[facility]annHEMATOLOGY 2017-12-22 11:00:52860Hhktmsqv WqmleeyHANZUOQWDX1213-70-30 11:00:009.1[facility] PreoobzGTYZAJTIXC7494-50-23 11:00:004.34[facility] XrisfdnVVZXZCIUCZ6946-64-20 11:00:0012.9[facility] BhwktwiIHGPHKZHJD6076-72-91 11:00:0038.1[facility] BVWLNOVVFV7664-97-69 11:00:0087.7[facility] PttxmwaPFILDLFSAG7523-26-11 11:00:00* Test Item Value Reference Range Interpretation Comments MCH (test code = MCH) 29.7 pg 27.0-31.0 [facility] RyrgscnBNCGMIKIPM0307-16-96 11:00:0033.8[facility] HermannCHEM PANEL 2017-12-19 12:18:0083[facility] HermannCHEM NXLSX8964-56-89 12:18:0012.4[facility]annCHEM PHGLN0467-71-28 12:18:0051[facility]annCHEM LZKCM5106-69-17 12:18:04401Wyyqeito HermannCHEM JGFWP2877-45-84 12:18:001.01[facility]annCHEM XUQTM4988-03-87 12:18:004.4[facility]annCHEM UATYI0619-68-66 12:18:04766 [facility]annCHEM ZUJUH0526-72-37 12:18:0022[facility]annCHEM PANEL 2017-12-19 12:18:008.8[facility] HermannCHEM KIKWP3279-87-06 12:18:0019[facility]annBLOOD BANK ZGVPQZG4431-01-52 05:08:00Negative (12/18/17 12:08 AM)[facility]annCHEM YBTPA1133-29-93 05:08:002.3[facility]annCHEM LZQLT7823-90-76 05:08:0082[facility]annCHEM RMLRR5965-23-89 05:08:0021[facility] HermannCHEM RGUFT6935-69-82 05:08:73919Qgcckbrt HermannCHEM CPHDQ7165-88-34 05:08:001.37 [facility]annCHEM RPUVS7045-79-80 05:08:0030[facility]annCHEM PANEL 2017-12-18 05:08:004.4[facility] HermannCHEM TKEUT0422-90-53 05:08:52796Vjocnvmq HermannCHEM XVCRU8453-28-00 05:08:0035[facility] HermannCHEM TYRNS9055-82-90 05:08:008.2[facility] HermannCHEM OPSQT3398-92-78 05:08:0013.4[facility]annCHEM JKSDI8631-04-70 05:08:003.1[facility] QbmzdzwRFFKHTXNJR1420-83-25 05:08:00* Test Item Value Reference Range Interpretation Comments PTT (test code = PTT) 38.4 s 22.9-35.8 [facility] SvtxpwnLJDRABBVTC0954-64-93 05:08:00* Test Item Value Reference Range Interpretation Comments INR (test code = INR) 1.01 1 0.85-1.17 [facility] HeclmkjTENHYJKEKA0655-90-28 05:08:00* Test Item Value Reference Range Interpretation Comments PT (test code = PT) 13.3 s 12.0-14.7 [facility] NufvnjtTFUNUWDZEZ2452-97-27 05:08:009.5[facility]annHEMATOLOGY 2017-12-18 05:08:003.87[facility] XdybdlmTROTCERKKB9119-76-84 05:08:38527Taeskrty QwdjoxzRJJAVQLMBP0523-58-10 05:08:007.0[facility] PewkwdeZBSQLBCFFG0046-84-89 05:08:0033.8[facility] QpfiwqwQSTLIPOCON6496-64-41 05:08:0013.3[facility] [place] GDZSXCTVVY6379-67-31 05:08:0011.5[facility] HomgdumUUKGWYEDVC6963-70-81 05:08:00 34.1[facility] ZchzxddIUAZGQCDRT2345-81-32 05:08:0088.1[facility]annHEMATOLOGY 2017-12-18 05:08:00* Test Item Value Reference Range Interpretation Comments MCH (test code = MCH) 29.7 pg 27.0-31.0 [facility] ZhwexnlJTPKHLLSYU1457-49-04 05:08:0067.2[facility]annHEMATOLOGY 2017-12-18 05:08:0019.4[facility] ZwzfegwLSDULEMRLT8437-80-01 05:08:007.9[facility] QfclodsOXQMDLDFFI5593-10-54 05:08:004.6[facility] JpzdqeyUQJPTBHHZM5123-37-12 05:08:000.9[facility] XreafdfJHUFNTHKVX5987-41-82 05:08:006.4[facility] [place] MXRDFWKRZK9246-74-31 05:08:001.8[facility] OqyodgrYKXIHIQMNF7485-40-21 05:08:000.4 [facility] DzzhzxaMYDJINSBRT0489-57-48 05:08:000.8[facility]annHEMATOLOGY 2017-12-18 05:08:000.1[facility] HermannPARATHYROID BGXUYMW1538-41-67 05:08:001.06 [facility]annPARATHYROID JITLFYZ6240-75-38 05:08:001.06[facility]annBLOOD BANK KMQPJJH4047-27-02 15:15:00Product available (12/17/17 10:15 AM)[facility]annBLOOD BANK OPNWMLZ5648-32-30 15:15:00Product available (12/17/17 10:15 AM) [facility]annUR[facility] AND YOIAQ2024-39-42 15:14:00Negative (12/17/17 10:14 AM) [facility] DWNWX8564-08-32 15:14:00Negative *NA*(12/17/17 10:14 AM) [facility] IAQLL4820-68-89 15:14:00Yellow *NA*(12/17/17 10:14 AM) [facility] GHQEU1256-34-84 15:14:00<1[facility]UR[facility] AND LBYPO5262-84-76 15:14:00<1[facility]annUR[facility] AND QWWCZ7071-94-47 15:14:00 Negative (12/17/17 10:14 AM)[facility] BRXKB3810-97-10 15:14:00 Negative (12/17/17 10:14 AM)[facility]ann[facility] VUVIN1475-05-45 15:14:00* Test Item Value Reference Range Interpretation Comments UA pH (test code = UA pH) 7.0 1 5.0-8.0 [facility] AND KEIGB4393-78-36 15:14:00* Test Item Value Reference Range Interpretation Comments UA Spec Grav (test code = UA Spec Grav) 1.008 1 [facility] AND XQRRX7148-71-96 15:14:00Clear (12/17/17 10:14 AM) [facility] JsficnsRJFUUCEGYJ9535-81-00 14:15:000.38[facility]annHEMATOLOGY 2017-12-16 10:12:001.0[facility] ImhbkbxXYLQNBKBEO7672-15-94 10:12:000.8[facility] EnxlnciWUYATQBQDP9701-49-99 10:12:005.2[facility] JcrvukeWWGBWELTPV9275-01-31 10:12:001.6[facility] AxrxwrsQVTKXLVTCW7783-56-30 10:12:004.9[facility] [place] XRJVNXEEFW5433-47-91 10:12:000.4[facility] AcjaxvmCXKJUSRHFQ7909-66-12 10:12:000.1 [facility] OiyfyvuDFXMJSHVCZ8461-86-99 10:12:0011.7[facility]annHEMATOLOGY 2017-12-16 10:12:0062.9[facility] MnisplmGPGBCZGOSP9859-95-99 10:12:0019.7[facility] GetqjwkVXQLZBNTHG2216-80-01 10:12:008.2[facility] QkeasfvNQVEOCMAST9028-27-17 10:12:003.60[facility] JbpklttGVJURZMORK3650-63-46 10:12:00* Test Item Value Reference Range Interpretation Comments MCH (test code = MCH) 30.0 pg 27.0-31.0 [facility] EddhxguYIMLJKTTKH0717-90-25 10:12:0010.8[facility] HermannHEMATOLOGY 2017-12-16 10:12:0031.3[facility] TisdkiuXBVTRSOFGQ1260-94-40 10:12:0013.3[facility] ShchsheBRYQSHCSSW8805-50-58 10:12:87475Vgsyepys UvottjqHKENLSUTKL4496-95-00 10:12:0034.5[facility] ZxvtlamPZAWQWGZBC9722-22-54 10:12:0087.1[facility] [place] PYABKMFYOX9446-47-03 10:12:007.2[facility] ZhvzycvGZRJMFMDJK4963-47-36 19:02:00 12.6[facility]annBLOOD BANK TTNTQAR2287-80-23 19:01:00Negative (12/15/17 2:01 PM)[facility] HermannCHEM SNEFJ9837-21-00 19:01:001.0[facility] HermannHEMATOLOGY 2017-12-15 19:01:000.1[facility] HermannCT BRAIN WO [facility] [address] [address] Patient Name: FRANK PERRY MR #: [id number] : 1930 Age/Sex: 87/F Req #: [id number] [facility] Physician: Ordered by: LILIANA GARCIA MD Report #: [id number] Location: ER Room/Bed: Procedure: [id number] CT/CT BRAIN WO Exam Date: 01/28 Exam [...] volume loss. 2. Mild supratentorial white matter smal l vessel ischemic changes. Signed by: Dr. Hussain Baltazar M.D. on 2017 1:11 AM Dictated By: HUSSAIN BALTAZAR MD, MD Electronically Sign ed By: HUSSAIN BALTAZAR MD, MD on 01/28/18110 Transcribed By: ORLO on 0 01/28/18110 COPY TO: LILIANA GARCIA MD CHEST SINGLE (PORTABLE) [place] [address] Patient Name: FRANK PERRY MR #: [id number] : Age/Sex: 87/F Req #: [id number] Adm Physician: Ordered by: LILIANA GARCIA MD Report #: [id number] Location: ER Room/Bed: Procedure: [id number] DX/CHEST SINGLE (PORTABLE) Exam Date: 01/28/18 Exam [...] LILIANA GARCIA MD BARIUM ENEMA W/AIR C [place] [address] Patient Name: FRANK PERRY MR #: [id number] : 1930 Age/Sex: 87/F Req #: [id number] Adm Physician: Ordered by: PIA MCCANN MD Report #: [id number] Location: DX Room/Bed: Procedure: [id number] DX/BARIUM ENEMA W/AIR C Exam Date : 01/26/18 Exam Time: 929 REPORT STATUS: [place] [facility] PROCEDURE: X-RAY BARIUM [...] bilateral decubitus images were obtained. FINDINGS: The store director film demon strates no acute abnormalities. There is no evidence of obstruction, mass, or intraluminal filling defects. No appendix is visualized. Multiple diverticul i are present in the descending and sigmoid colon. CONCLUSION: Di verticulosis of the descending and sigmoid colon. Otherwise, no acute radiogr aphic abnormality. Dictated by: Sepideh High M.D. on 01/26/2018 at 11:12 Electronically approved by: Sepideh High M.D. on 01/26/2018 at 11:12 Dictated By: SEPIDEH HIGH MD 111 Transcribed By: MELISSA on 01/26/18 111 COPY TO: PIA MCCANN MD [facility] (PORTABLE) [place] [address] Patient Name: FRANK PERRY MR #: [id number] : 1930 Age/Sex: 87/F Req #: [id number] Adm Physician: CALEB ALATORRE MD Ordered by: MICHELET RECIO MD Report #: [id number] Location: ICU Room/Bed: ICU 192-1 Procedure: [id number] DX/ CHEST SINGLE (PORTABLE) Exam Date: 01/06/18 [...] on 12/18 6:51 AM Dictated By: JESSE MOCSOSO MD 0 Transcribed By: ROLO on 01/06/18650 COPY TO: MICHELET RECIO MD, [facility] CT BRAIN WO [place] [address] Patient Name: FRANK PERRY MR #: [id number] : 1930 Age/Sex: 87/F Req #: [id number] Adm Physician: CALEB HINES MD Ordered by: CALEB ALATORRE MD Report #: [id number] Locati on: ICU Room/Bed: ICU 192- Procedure: [id number] CT/C T BRAIN WO Exam Date: 01/05/18 [...] TO: NANCY ALATORRE MD CT ABDOMEN/PELVIS W [place] [address] Patient Name: FRANK PERRY MR #: [id number] : 1930 Age/Sex: 87/F Req #: [id number] Adm Physician: Ordered by: ELIZABETH JAMES MD Report #: [id number] Location: ER Room/Bed: Procedure: [id number] CT/CT ABDOMEN/PELVIS W E xam Date: Exam [...] JAMES MD ABDOMEN ACUTE SERIES W/PA CXR [place] [address] Patient Name: FRANK PERRY MR #: [id number] : 1930 Age/Sex: 87/F Req #: [id number] Adm Physician: Ordered by: ELIZABETH JAMES MD Report #: [id number] Location: ER Room/Bed: Procedure: [id number] DX/ABDOMEN ACUTE SERIES W /PA CXR Exam Date: 01/04/18 Exam Time: 2350 RE PORT STATUS: Signed ABDOMEN ACUTE SERIES W/PA CXR Clinical history: Rect al pain Technique: AP view abdomen Comparison: 04/10/2017 chest radiograph Findings: Abdomen: Moderate gaseous distention of the stomach with air-flui d level. No dilated loops of small or large bowel or free air. 1 cm calcificat ion of the left pelvis could reflect a fibroid or less likely bladder calculus . Chest: Stable appearance of the chest. Hyperinflation without acute abn ormality. Aortic calcifications. Bones: Multilevel degenerative changes and curvature of the spine. Impression: 1. No acute pulmonary abnormality . 2. Moderate gastric distention with otherwise nonobstructive bowel gas patte rn. Signed by: Dr Jesse Moscoso MD on 01/05/2018 12:40 AM Dictate d By: JESSE MOSCOSO MD COPY TO: VENUS JAMES MD
--- NOTE | 2020-04-19 12:52 | Emergency Department Note ---
History of Present Illnes History of Present Illness Chief Complaint: Back Pain History of Present Illness This is a 89 year old female pt had joshua injections on at pain clinic and went home and mechanical fall that evening. pt states pain at lower back. ambulatory. steady gait. drove herself. Historian: Patient Arrival Mode: Car It Project Coordinator Required: No Onset (how long ago): day(s) (3) Location: left buttocks Quality: pain Radiation: Reports non-radiation Severity: moderate Onset quality: gradual Timing of current episode: constant Progression: unchanged Chronicity: recurrent Context: Denies recent illness Relieving factors: none Exacerbating factors: none Associated symptoms: Reports denies other symptoms Treatments prior to arrival: none Past Medical/Family History Physician Review I have reviewed the patient's past medical and family history. Any updates have been documented here. Past Medical History Recent Fever: No Clinical Suspicion of Infectio: No New/Unexplained Change in Ment: No Past Medical History: Hypertension, GERD, Hyperlipedemia, Chronic Back Pain, Osteoarthritis Other Medical History: DIVERTICULITIS OSTEOPORSIS Other Surgery: LASIK SKIN GRAFTS Social History Smoking Cessation: Never Smoker Counseling Performed: No Alcohol Use: None Any Illegal Drug Use: No TB Exposure/Symptoms: No Physically hurt or threatened: No Family History Family history of heart diseas: No Other Last Tetanus: UTD Any Pre-Existing Lines (PICC,: No Review of Systems Review of Systems Constitutional: Reports no symptoms EENTM: Reports no symptoms Cardiovascular: Reports no symptoms Respiratory: Reports no symptoms Gastrointestinal: Reports no symptoms Genitourinary: Reports no symptoms Musculoskeletal: Reports as per HPI Integumentary: Reports no symptoms Neurological: Reports no symptoms Psychological: Reports no symptoms Endocrine: Reports no symptoms Hematological/Lymphatic: Reports no symptoms Physical Exam Related Data Allergies: Coded Allergies: gabapentin (Verified Allergy, Unknown, memory loss, 10/18/19) Triage Vital Signs Vital Signs Date Time Temp Pulse Resp B/P (MAP) Pulse Ox O2 Delivery O2 Flow Rate FiO2 04/19/20 11:38 99.2 77 14 156/97 95 Room Air Vital signs reviewed: Yes Physical Exam CONSTITUTIONAL Constitutional: Present well-developed, Present well-nourished HENT HENT: Present normocephalic, Present atraumatic, Present oropharynx clear/moist, Present nose normal HENT L/R: Present left ext ear normal, Present right ext ear normal EYES Eyes: Reports PERRL, Reports conjunctivae normal NECK Neck: Present ROM normal PULMONARY Pulmonary: Present effort normal, Present breath sounds normal CARDIOVASCULAR Cardiovascular: Present regular rhythm, Present heart sounds normal, Present capillary refill normal, Present normal rate GASTROINTESTINAL Abdominal: Present soft, Present nontender, Present bowel sounds normal GENITOURINARY Genitourinary: Present exam deferred SKIN Skin: Present warm, Present dry MUSCULOSKELETAL Musculoskeletal: Present other (tender at left SI joint area, neg SLR, motor/sens intact, nl DTR's) NEUROLOGICAL Neurological: Present alert, Present oriented x 3, Present DTRs normal, Present no gross motor or sensory deficits PSYCHOLOGICAL Psychological: Present mood/affect normal, Present judgement normal Results Imaging Imaging results reviewed: Yes Assessment & Plan Medical Decision Making MDM check xrays, r/o fx Reassessment Reassessment DC HOME, LIDODERM PATCHES Assessment & Plan Final Impression: (1) Fall (2) Chronic back pain Depart Disposition: HOME, SELF-CARE Last Vital Signs Date Time Temp Pulse Resp B/P (MAP) Pulse Ox O2 Delivery O2 Flow Rate FiO2 04/19/20 11:38 99.2 77 14 156/97 95 Room Air Home Meds Reported Medications Propafenone Hcl (PROPAFENONE HCL) 325 Mg Cap.er.12h, 150 MG PO BID, CAP 11/30/19 Lorazepam (LORAZEPAM) 2 Mg/1 Ml Oral.conc, 0.5 MG PO PRN for anxiety Take one to two tabs by mouth as needed. 11/30/19 Shark Liver Oil/Chauncey Butter (HEMORRHOIDAL SUPPOSITORIES) 1 Each Supp.rect, 1 SUPP RC PRN 06/05/19 Ranitidine Hcl (RANITIDINE HCL) 150 Mg Capsule, 150 MG PO DAILY 06/05/19 Lidocaine (RECTICARE) 30 Gm Cream..g., 1 APPLIC TOP PRN 06/05/19 [Acetaminophen] (Tylenol) No Conflict Check, 1000 MG PO DAILY 06/05/19 Buchtel-3 Fatty Acids/Fish Oil (FISH OIL 1,200 MG SOFTGEL) 1 Each Capsule, 2400 MG PO DAILY 06/05/19 Calcium Carbonate/Vitamin D3 (CALTRATE-600 WITH VIT D TAB) 1 Each Tablet, 1200 MG PO DAILY 06/05/19 Aspirin (ASPIR 81) 81 Mg Tablet.dr, 81 MG PO DAILY 06/05/19 Hydrocortisone (PROCTOSOL-HC) 28.35 Gm Cream..g., 2.5 % RC TID 06/05/19 Amlodipine Besylate (AMLODIPINE BESYLATE) 2.5 Mg Tablet, 2.5 MG PO Q12H for HYPERTENSION 01/11/19 Acebutolol Hcl (ACEBUTOLOL HCL) 200 Mg Capsule, 200 MG PO BID, #30 CAP 01/28/18 Medications in the ED Lidocaine 1 ea DAILY ONCE TP ; Start 04/20/20 at 09:00; Stop 04/20/20 at 09:01 LILIANA GARCIA MD Apr 19, 2020 12:52
--- NOTE | 2020-04-19 14:00 | Diagnostic Imaging Report ---
Lumbar Spine Radiographs: 3 views. Pelvis radiograph: One view HISTORY: Lower back and pelvic pain after recent fall. COMPARISON: 08/09/2019. FINDINGS: Lumbar spine: Alignment: There is mild degenerative levoscoliosis of the lumbar spine. Vertebral bodies: Normal height. No acute fracture. Intervertebral disc: There is multilevel degenerative disease characterized by joint space narrowing, endplate sclerosis and marginal osteophytes. Facet: There is multilevel facet arthrosis with no evidence of dislocation. Soft tissues: There is atherosclerotic calcification of the abdominal aorta. Pelvis: No acute fracture or dislocation. There are moderate degenerative changes of the bilateral hips characterized by asymmetric joint space narrowing, subchondral cystic changes and marginal osteophytes. The sacroiliac joints are symmetric. No pubic symphyseal widening. Enthesophytes at the right greater trochanter. No focal soft tissue abnormality. IMPRESSION: 1. Lumbar spondylosis with multilevel degenerative disease. No acute fracture or dislocation. 2. No acute fracture or dislocation of the pelvis. Moderate osteoarthritis of the bilateral hips Signed by: Serene Lawson MD on 04/19/2020 1:57 PM
[2020-04-19 14:30] VITALS: BP 107/85
[2020-04-20] MEDS ORDERED: LIDOCAINE 4% PATCH TP ONE (09:00)
== END 2020-04-19 14:46 | disposition home or self-care (01) ==
LOC: ER 11:42
DX: M54.5 Low back pain (principal); W18.30XA Fall on same level, unspecified, initial encounter; Y92.008 Other place in unspecified non-institutional (private) residence as the place of occurrence of the external cause; G89.29 Other chronic pain; I10 Essential (primary) hypertension; E78.5 Hyperlipidemia, unspecified; K21.9 Gastro-esophageal reflux disease without esophagitis
CPT/HCPCS: 72110; 72170; 99284

== ENCOUNTER 2020-04-22 08:59 | Inpatient (IN) | payer MEDICARE, OTHER ==
[~2020-04-22] VITALS: Ht 157.5 cm; Wt 50.4 kg
[2020-04-22] MEDS ORDERED: SODIUM CHLORIDE 0.9% 1000ML 1,000 ML IV STA (09:13)
[2020-04-22 09:28] LABS: BASOPHILS % 0.3 % (0.0-1.0); EOSINOPHILS # (AUTO) 0.1 (0.0-0.4); EOSINOPHILS % 0.7 % (0.0-6.0); HEMATOCRIT 40.9 % (34.2-44.1); HEMOGLOBIN 14.6 g/dL (12.0-16.0); LYMPHOCYTES # (AUTO) 1.2 (1.0-3.2); LYMPHOCYTES % 10.8 % (18.0-39.1); MEAN CORPUSCULAR HGB CONC 35.7 g/dL (31-35); MEAN CORPUSCULAR VOLUME 84.2 fL (81-99); MONOCYTES # (AUTO) 1.1 (0.2-0.8); MONOCYTES % 10.1 % (4.4-11.3); NEUTROPHILS % 72.7 % (38.7-80.0); PLATELET COUNT 285 x10e3/uL (140-360); RED BLOOD COUNT 4.86 x10e6/uL (3.6-5.1)
[2020-04-22 09:35] LABS: INR 0.91; PROTHROMBIN TIME 12.7 seconds (11.9-14.5)
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
--- OUTSIDE RECORDS SUMMARY | 2020-04-22 09:39 | XMS REPORT | Continuity of Care Document ---
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 Value Reference Range Interpretation Comments Neutrophils (%) (Auto) (test code = 73178-4) 68.0 38.7-80.0 [facility] HospitalAutomated blood lymphocyte count as percentage ot total vgvagazkgw8710-59-62 08:58:00* Test Item Value Reference Range Interpretation Comments Lymphocytes (%) (Auto) (test code = 736-9) 17.5 18.0-39.1 [facility] HospitalAutomated blood monocyte count as percentage of total abbcrpcaxj6595-52-51 08:58:00* Test Item Value Reference Range Interpretation Comments Monocytes (%) (Auto) (test code = 5905-5) 9.0 4.4-11.3 [facility] HospitalAutomated blood eosinophil count as percentage of total hituhbevxd4330-87-09 08:58:00* Test Item Value Reference Range Interpretation Comments Eosinophils (%) (Auto) (test code = 713-8) 3.9 0.0-6.0 [facility] HospitalAutomated blood basophil count as percentage of total vfjucykdbk6680-89-07 08:58:00* Test Item Value Reference Range Interpretation Comments Basophils (%) (Auto) (test code = 706-2) 0.6 0.0-1.0 [facility] HospitalFluoroscopic procedure less than one hour uygkmjsz4001-85-70 08:58:00* Test Item Value Reference Range Interpretation Comments IM GRANULOCYTES % (test code = IM GRANULOCYTES %) 1.0 0.0- 1.0 [facility] HospitalAutomated blood neutrophil count 2020-01-31 08:58:00* Test Item Value Reference Range Interpretation Comments Neutrophils # (Auto) (test code = 751-8) 4.8 2.1-6.9 [facility] HospitalBlood lymphocytes count (number/volume) 2020-01-31 08:58:00* Test Item Value Reference Range Interpretation Comments Lymphocytes # (Auto) (test code = 69187-5) 1.2 1.0-3.2 [facility] HospitalBlood monocytes automated count (number/volume)2020-01-31 08:58:00* Test Item Value Reference Range Interpretation Comments Monocytes # (Auto) (test code = 742-7) 0.6 0.2-0.8 [facility] HospitalAutomated blood eosinophil count 2020-01-31 08:58:00* Test Item Value Reference Range Interpretation Comments Eosinophils # (Auto) (test code = 711-2) 0.3 0.0-0.4 [facility] HospitalAutomated blood basophil count (count/volume)2020-01-31 08:58:00* Test Item Value Reference Range Interpretation Comments Basophils # (Auto) (test code = 704-7) 0.0 0.0-0.1 [facility] HospitalFluoroscopic procedure less than one hour qlymtpvb5576-24-11 08:58:00* Test Item Value Reference Range Interpretation Comments Absolute Immature Granulocyte (auto (inocente t code = Absolute Immature Granulocyte (auto) 0.07 0-0.1 [facility] HospitalInfluenza Virus Types A,B Antigen 2019-12-01 16:02:00* Test Item Value Reference Range Interpretation Comments Influenza Virus Types A,B Antigen (test code = 71734-2) NEGATIVE NEGATIVE [facility] Xdiwa8986-22-12 15:28:00* Test Item Value Reference Range Interpretation Comments Sodium Level (test code = 2951-2) 132 136-145 L [facility] HospitalPotassium Igsnx0990-68-53 15:28:00* Test Item Value Reference Range Interpretation Comments Potassium Level (test code = 2823-3) 4.2 3.5-5.1 [facility] HospitalChloride Asrpo1330-91-80 15:28:00* Test Item Value Reference Range Interpretation Comments Chloride Level (test code = 2075-0) 96 98-107 L [facility] HospitalCarbon Dioxide Mugfe4112-57-01 15:28:00* Test Item Value Reference Range Interpretation Comments Carbon Dioxide Level (test code = 2028-9) 27 22-29 [facility] HospitalAnion Mzo7190-07-08 15:28:00* Test Item Value Reference Range Interpretation Comments Anion Gap (test code = 47690-2) 13.2 8-16 [facility] HospitalBlood Urea Skcdtuek1729-99-35 15:28:00* Test Item Value Reference Range Interpretation Comments Blood Urea Nitrogen (test code = 3094-0) 17 7-26 [facility] HospitalCreatinine2020-03-15 15:28:00* Test Item Value Reference Range Interpretation Comments Creatinine (test code = 2160-0) 0.98 0.57-1.11 [facility] HospitalBUN/Creatinine Upnwy0685-58-36 15:28:00* Test Item Value Reference Range Interpretation Comments BUN/Creatinine Ratio (test code = 3097-3) 17 6-25 [facility] HospitalEstimat Glomerular Filtration Rate 2019-12-01 15:28:00* Test Item Value Reference Range Interpretation Comments Estimat Glomerular Filtration Rate (test code = 991036226) 54 >60 L Ranges were taken from the National Kidney Disease Education Program and the [facility] literature.Reference ranges:60 or greater: Qggtjt98-96 ( for 3 consecutive months): Chronic kidney disease 15 or less: Kidney failureMethodist Southlake HospitalGlucose Nukag0161-17-15 15:28:00* Test Item Value Reference Range Interpretation Comments Glucose Level (test code = VRC9281) 113 74-118 [facility] HospitalCalcium Fuyns3647-28-73 15:28:00* Test Item Value Reference Range Interpretation Comments Calcium Level (test code = 10124-0) 10.2 8.4-10.2 [facility] HospitalMagnesium Etbiw0904-28-16 15:28:00* Test Item Value Reference Range Interpretation Comments Magnesium Level (test code = 03229-2) 2.2 1.3-2.1 H [facility] HospitalTotal Qsehvoycu3453-94-19 15:28:00* Test Item Value Reference Range Interpretation Comments Total Bilirubin (test code = 1975-2) 0.4 0.2-1.2 [facility] HospitalAspartate Amino Transf (AST/SGOT) 2019-12-01 15:28:00* Test Item Value Reference Range Interpretation Comments Aspartate Amino Transf (AST/SGOT) (test code = Aspartate Amino Transf (AST/SGOT)) 24 5-34 [facility] HospitalAlanine Aminotransferase (ALT/SGPT) 2019-12-01 15:28:00* Test Item Value Reference Range Interpretation Comments Alanine Aminotransferase (ALT/SGPT) (test code = 1742-6) 25 0-55 [facility] HospitalTotal Rztarbq3324-21-04 15:28:00* Test Item Value Reference Range Interpretation Comments Total Protein (test code = 2885-2) 8.5 6.5-8.1 H [facility] HospitalAlbumin2020-03-15 15:28:00* Test Item Value Reference Range Interpretation Comments Albumin (test code = 1751-7) 4.7 3.5-5.0 [facility] HospitalGlobulin2020-03-15 15:28:00* Test Item Value Reference Range Interpretation Comments Globulin (test code = 47630-2) 3.8 2.3-3.5 H [facility] HospitalAlbumin/Globulin Wfcpm1604-01-77 15:28:00 * Test Item Value Reference Range Interpretation Comments Albumin/Globulin Ratio (test code = 1759-0) 1.2 0.8-2.0 [facility] HospitalAlkaline Lixedyrqqme0891-50-40 15:28:00* Test Item Value Reference Range Interpretation Comments Alkaline Phosphatase (test code = 6768-6) 97 40-150 [facility] HospitalCreatine Ziomgi7010-99-02 15:28:00* Test Item Value Reference Range Interpretation Comments Creatine Kinase (test code = 2157-6) 54 29-168 [facility] HospitalCreatine Kinase CF1089-69-19 15:28:00* Test Item Value Reference Range Interpretation Comments Creatine Kinase MB (test code = 98428-6) 3.80 0-5.0 [facility] HospitalTroponin G7807-19-24 15:28:00* Test Item Value Reference Range Interpretation Comments Troponin I (test code = QPI4292) 0.014 0-0.300 [facility] HospitalLipase2020-03-15 15:28:00* Test Item Value Reference Range Interpretation Comments Lipase (test code = 3040-3) 35 8-78 [facility] HospitalInfluenza virus A and B antigen identification by hgbqoxfbppsqnutlcg4126-26-49 15:22:00* Test Item Value Reference Range Interpretation Comments Influenza Virus Types A,B Antigen (test code = 42356-6) NEGATIVE NEGATIVE [facility] HospitalInfluenza virus A and B antigen identification by tajepezucznbtsziiz7354-56-79 15:22:00* Test Item Value Reference Range Interpretation Comments Influenza Virus Types A,B Antigen (test code = 47875-0) NEGATIVE NEGATIVE [facility] HospitalProthrombin Reml7982-51-78 15:12:00* Test Item Value Reference Range Interpretation Comments Prothrombin Time (test code = 5902-2) 12.3 11.9-14.5 [facility] HospitalProthromb Time International Ratio 2019-12-01 15:12:00* Test Item Value Reference Range Interpretation Comments Prothromb Time International Ratio (test code = 6301-6) 0.87 Oral Anticoagulant Therapy INR Values:1. Low Intensity Therapy 1.5 - 2.02 . Moderate Intensity Therapy 2.0 - 3.03. High Intensity Therapy(1) 2.5 - 3. 54. High Intensity Therapy(2) 3.0 - 4.05. Panic Value INR > 5.0 [facility] HospitalActivated Partial Thromboplast Time 2019-12-01 15:12:00* Test Item Value Reference Range Interpretation Comments Activated Partial Thromboplast Time (test code = 13675-6) 26.9 23.8-35.5 [facility] HospitalUrine TJP7836-83-39 15:11:00* Test Item Value Reference Range Interpretation Comments Urine WBC (test code = 5821-4) 0-5 0-5 [facility] HospitalUrine ASJ5569-65-90 15:11:00* Test Item Value Reference Range Interpretation Comments Urine RBC (test code = 34141-6) 0-5 0-5 [facility] HospitalUrine Jklpmkso1442-60-43 15:11:00* Test Item Value Reference Range Interpretation Comments Urine Bacteria (test code = 83383-6) RARE NONE [facility] HospitalUrine Epithelial Ssler7249-84-75 15:11:00 * Test Item Value Reference Range Interpretation Comments Urine Epithelial Cells (test code = 47602-8) RARE NONE [facility] HospitalUrine Gitrn1340-28-66 15:06:00* Test Item Value Reference Range Interpretation Comments Urine Color (test code = 5778-6) YELLOW YELLOW [facility] HospitalUrine Awusfbe1532-59-53 15:06:00* Test Item Value Reference Range Interpretation Comments Urine Clarity (test code = 61049-0) CLEAR CLEAR [facility] HospitalUrine Specific Prcnbzx7143-14-09 15:06:00 * Test Item Value Reference Range Interpretation Comments Urine Specific [place] (test code = 5811-5) 1.020 1.010-1.02 5 [facility] HospitalUrine sC0188-58-62 15:06:00* Test Item Value Reference Range Interpretation Comments Urine pH (test code = 39629-5) 7.5 5-7 [facility] HospitalUrine Leukocyte Ekmvhgnq2840-80-38 15:06:00* Test Item Value Reference Range Interpretation Comments Urine Leukocyte Esterase (test code = 5799-2) NEGATIVE NEGATIVE [facility] Habzsjy6233-80-99 15:06:00* Test Item Value Reference Range Interpretation Comments Urine Nitrite (test code = 02781-4) NEGATIVE NEGATIVE [facility] Qlzrsjd6164-85-56 15:06:00* Test Item Value Reference Range Interpretation Comments Urine Protein (test code = 5804-0) NEGATIVE NEGATIVE [facility] HospitalUrine Glucose (UA)2019-12-01 15:06:00* Test Item Value Reference Range Interpretation Comments Urine Glucose (UA) (test code = 2349-9) NEGATIVE NEGATIVE [facility] HospitalUrine Pdngafo1285-48-07 15:06:00* Test Item Value Reference Range Interpretation Comments Urine Ketones (test code = 29101-0) NEGATIVE NEGATIVE [facility] Lirgtstkahfl6883-04-60 15:06:00* Test Item Value Reference Range Interpretation Comments Urine Urobilinogen (test code = 87777-9) 0.2 0.2-1 [facility] HospitalUrine Ukfelsftj9979-88-12 15:06:00* Test Item Value Reference Range Interpretation Comments Urine Bilirubin (test code = 1978-6) NEGATIVE NEGATIVE [facility] HospitalUrine Bcdek4154-49-67 15:06:00* Test Item Value Reference Range Interpretation Comments Urine Blood (test code = 55565-7) NEGATIVE NEGATIVE [facility] HospitalWhite Blood Ebigs7306-34-99 15:00:00* Test Item Value Reference Range Interpretation Comments White Blood Count (test code = 6690-2) 10.68 4.8-10.8 [facility] HospitalRed Blood Uktog7282-82-46 15:00:00* Test Item Value Reference Range Interpretation Comments Red Blood Count (test code = 789-8) 4.95 3.6-5.1 [facility] HospitalHemoglobin2020-03-15 15:00:00* Test Item Value Reference Range Interpretation Comments Hemoglobin (test code = 43680-4) 15.0 12.0-16.0 [facility] HospitalHematocrit2020-03-15 15:00:00* Test Item Value Reference Range Interpretation Comments Hematocrit (test code = 4544-3) 44.5 34.2-44.1 H [facility] HospitalMean Corpuscular Efkesm5402-38-30 15:00:00* Test Item Value Reference Range Interpretation Comments Mean Corpuscular Volume (test code = 787-2) 89.9 81-99 [facility] HospitalMean Corpuscular Zlsyzjigkd9904-26-29 15:00:00* Test Item Value Reference Range Interpretation Comments Mean Corpuscular Hemoglobin (test code = 785-6) 30.3 28-32 [facility] HospitalMean Corpuscular Hemoglobin Concent 2019-12-01 15:00:00* Test Item Value Reference Range Interpretation Comments Mean Corpuscular Hemoglobin Concent (test code = 786-4) 33.7 31-35 [facility] HospitalRed Cell Distribution Axonn7373-33-17 15:00:00* Test Item Value Reference Range Interpretation Comments Red Cell Distribution Width (test code = 52492-9) 13.0 11.7 -14.4 [facility] HospitalPlatelet Irhxb9705-68-18 15:00:00* Test Item Value Reference Range Interpretation Comments Platelet Count (test code = 777-3) 277 140-360 [facility] HospitalNeutrophils (%) (Auto)2019-12-01 15:00:00 * Test Item Value Reference Range Interpretation Comments Neutrophils (%) (Auto) (test code = 25665-1) 86.8 38.7-80.0 H [facility] HospitalLymphocytes (%) (Auto)2019-12-01 15:00:00 * Test Item Value Reference Range Interpretation Comments Lymphocytes (%) (Auto) (test code = 736-9) 7.3 18.0-39.1 L [facility] HospitalMonocytes (%) (Auto)2019-12-01 15:00:00* Test Item Value Reference Range Interpretation Comments Monocytes (%) (Auto) (test code = 5905-5) 2.2 4.4-11.3 L [facility] HospitalEosinophils (%) (Auto)2019-12-01 15:00:00 * Test Item Value Reference Range Interpretation Comments Eosinophils (%) (Auto) (test code = 713-8) 1.0 0.0-6.0 [facility] HospitalBasophils (%) (Auto)2019-12-01 15:00:00* Test Item Value Reference Range Interpretation Comments Basophils (%) (Auto) (test code = 706-2) 0.4 0.0-1.0 [facility] HospitalIM GRANULOCYTES %2019-12-01 15:00:00* Test Item Value Reference Range Interpretation Comments IM GRANULOCYTES % (test code = IM GRANULOCYTES %) 2.3 0.0- 1.0 H [facility] HospitalNeutrophils # (Auto)2019-12-01 15:00:00* Test Item Value Reference Range Interpretation Comments Neutrophils # (Auto) (test code = 751-8) 9.3 2.1-6.9 H [facility] HospitalLymphocytes # (Auto)2019-12-01 15:00:00* Test Item Value Reference Range Interpretation Comments Lymphocytes # (Auto) (test code = 63563-9) 0.8 1.0-3.2 L [facility] HospitalMonocytes # (Auto)2019-12-01 15:00:00* Test Item Value Reference Range Interpretation Comments Monocytes # (Auto) (test code = 742-7) 0.2 0.2-0.8 [facility] HospitalEosinophils # (Auto)2019-12-01 15:00:00* Test Item Value Reference Range Interpretation Comments Eosinophils # (Auto) (test code = 711-2) 0.1 0.0-0.4 [facility] HospitalBasophils # (Auto)2019-12-01 15:00:00* Test Item Value Reference Range Interpretation Comments Basophils # (Auto) (test code = 704-7) 0.0 0.0-0.1 [facility] HospitalAbsolute Immature Granulocyte (auto 2019-12-01 15:00:00* Test Item Value Reference Range Interpretation Comments Absolute Immature Granulocyte (auto (inocente t code = Absolute Immature Granulocyte (auto) 0.25 0-0.1 H [facility] HospitalCT ABDOMEN/PELVIS QR2944-70-24 14:56:00 [place] [address] Patient Name: FRANK PERRY MR #: [id number] : 1930 Age/Sex: 89/F Req #: [id number] Adm Physician: Ordered by: LILIANA GARCIA MD Report #: [id number] Location: ER Room/Bed: Procedure: [id number] CT/CT ABDOMEN/PELVIS WO Exam Date: Exam Time: [...] Color (test code = 5778-6) YELLOW YELLOW [facility] HospitalUrine tfqxodl2761-05-62 14:26:00* Test Item Value Reference Range Interpretation Comments Urine Clarity (test code = 38567-4) CLEAR CLEAR [facility] gravity of Urine by Test strip 2019-12-01 14:26:00* Test Item Value Reference Range Interpretation Comments Urine Specific [place] (test code = 5811-5) 1.020 1.010-1.02 5 [facility] HospitalUrine pH measurement by automated test ivvsn9932-09-96 14:26:00* Test Item Value Reference Range Interpretation Comments Urine pH (test code = 00684-7) 7.5 5-7 [facility] HospitalUrine leukocyte esterase detection by gktrgcko0848-66-79 14:26:00* Test Item Value Reference Range Interpretation Comments Urine Leukocyte Esterase (test code = 5799-2) NEGATIVE NEGATIVE [facility] HospitalUrine nitrite cjwdgdmcg3740-68-80 14:26:00* Test Item Value Reference Range Interpretation Comments Urine Nitrite (test code = 44931-9) NEGATIVE NEGATIVE [facility] HospitalUrine protein measurement by test strip (mass/volume)2019-12-01 14:26:00* Test Item Value Reference Range Interpretation Comments Urine Protein (test code = 5804-0) NEGATIVE NEGATIVE [facility] HospitalUrine glucose cvwxsqorm9031-57-32 14:26:00* Test Item Value Reference Range Interpretation Comments Urine Glucose (UA) (test code = 2349-9) NEGATIVE NEGATIVE [facility] HospitalUrine ketones detection by automated test rejbw9084-58-48 14:26:00* Test Item Value Reference Range Interpretation Comments Urine Ketones (test code = 71901-8) NEGATIVE NEGATIVE [facility] HospitalUrine urobilinogen measurement by test strip (mass/volume)2019-12-01 14:26:00* Test Item Value Reference Range Interpretation Comments Urine Urobilinogen (test code = 96862-9) 0.2 0.2-1 [facility] HospitalUrine total bilirubin measurement (mass/volume)2019-12-01 14:26:00* Test Item Value Reference Range Interpretation Comments Urine Bilirubin (test code = 1978-6) NEGATIVE NEGATIVE [facility] HospitalUrine erythrocytes wcpmgdehr2776-98-41 14:26:00* Test Item Value Reference Range Interpretation Comments Urine Blood (test code = 51664-6) NEGATIVE NEGATIVE [facility] HospitalAutomated urine sediment leukocyte count by microscopy (number/high power field)2019-12-01 14:26:00* Test Item Value Reference Range Interpretation Comments Urine WBC (test code = 5821-4) 0-5 0-5 [facility] HospitalErythrocytes detection in urine sediment by light pupgvjabob4484-25-26 14:26:00* Test Item Value Reference Range Interpretation Comments Urine RBC (test code = 64374-7) 0-5 0-5 [facility] HospitalBacteria detection in urine sediment by light sinsbvhila9867-68-49 14:26:00* Test Item Value Reference Range Interpretation Comments Urine Bacteria (test code = 67123-9) RARE NONE [facility] HospitalEpithelial cells detection in urine sediment by light scmbeiaggr7370-08-12 14:26:00* Test Item Value Reference Range Interpretation Comments Urine Epithelial Cells (test code = 45583-4) RARE NONE [facility] HospitalUrine color ifryonskxglhi6203-05-73 14:26:00* Test Item Value Reference Range Interpretation Comments Urine Color (test code = 5778-6) YELLOW YELLOW [facility] HospitalUrine jqtgoet3632-88-83 14:26:00* Test Item Value Reference Range Interpretation Comments Urine Clarity (test code = 08062-4) CLEAR CLEAR [facility]lakepecific gravity of Urine by Test strip 2019-12-01 14:26:00* Test Item Value Reference Range Interpretation Comments Urine Specific [place] (test code = 5811-5) 1.020 1.010-1.02 5 [facility] HospitalUrine pH measurement by automated test mushg8974-00-37 14:26:00* Test Item Value Reference Range Interpretation Comments Urine pH (test code = 96653-5) 7.5 5-7 [facility] HospitalUrine leukocyte esterase detection by swycalap3279-52-70 14:26:00* Test Item Value Reference Range Interpretation Comments Urine Leukocyte Esterase (test code = 5799-2) NEGATIVE NEGATIVE [facility] HospitalU[facility] nitrite fixlripsv3019-67-91 14:26:00* Test Item Value Reference Range Interpretation Comments Urine Nitrite (test code = 31234-4) NEGATIVE NEGATIVE [facility] HospitalUrine protein measurement by test strip (mass/volume)2019-12-01 14:26:00* Test Item Value Reference Range Interpretation Comments Urine Protein (test code = 5804-0) NEGATIVE NEGATIVE [facility] HospitalUrine glucose eigjgxhsh7887-22-68 14:26:00* Test Item Value Reference Range Interpretation Comments Urine Glucose (UA) (test code = 2349-9) NEGATIVE NEGATIVE [facility] HospitalUrine ketones detection by automated test ebjbs0101-08-85 14:26:00* Test Item Value Reference Range Interpretation Comments Urine Ketones (test code = 24899-2) NEGATIVE NEGATIVE [facility] HospitalUrine urobilinogen measurement by test strip (mass/volume)2019-12-01 14:26:00* Test Item Value Reference Range Interpretation Comments Urine Urobilinogen (test code = 34623-2) 0.2 0.2-1 [facility] HospitalUrine total bilirubin measurement (mass/volume)2019-12-01 14:26:00* Test Item Value Reference Range Interpretation Comments Urine Bilirubin (test code = 1978-6) NEGATIVE NEGATIVE [facility] HospitalUrine erythrocytes gqbbyyusa4752-07-28 14:26:00* Test Item Value Reference Range Interpretation Comments Urine Blood (test code = 16466-7) NEGATIVE NEGATIVE [facility] HospitalAutomated urine sediment leukocyte count by microscopy (number/high power field)2019-12-01 14:26:00* Test Item Value Reference Range Interpretation Comments Urine WBC (test code = 5821-4) 0-5 0-5 [facility] HospitalErythrocytes detection in urine sediment by light gknwwgjhfg8400-61-39 14:26:00* Test Item Value Reference Range Interpretation Comments Urine RBC (test code = 14333-0) 0-5 0-5 [facility] HospitalBacteria detection in urine sediment by light bvqytiejue8622-58-89 14:26:00* Test Item Value Reference Range Interpretation Comments Urine Bacteria (test code = 36771-7) RARE NONE [facility] HospitalEpithelial cells detection in urine sediment by light nafwhsfxhd1400-59-21 14:26:00* Test Item Value Reference Range Interpretation Comments Urine Epithelial Cells (test code = 22677-9) RARE NONE [facility] HospitalFluoroscopic procedure less than one hour aafnumsl4470-49-14 14:23:00* Test Item Value Reference Range Interpretation Comments Differential Total Cells Counted (test code = Differen tial Total Cells Counted) 100 [facility] HospitalManual blood neutrophils/100 leukocytes 2019-12-01 14:23:00* Test Item Value Reference Range Interpretation Comments Neutrophils % (Manual) (test code = 88673-5) 92 40-74 [facility] blood lymphocytes/100 leukocytes 2019-12-01 14:23:00* Test Item Value Reference Range Interpretation Comments Lymphocytes % (Manual) (test code = 737-7) 7 19-48 [facility] leukocytes 2019-12-01 14:23:00* Test Item Value Reference Range Interpretation Comments Monocytes % (Manual) (test code = 744-3) 1 3.4-9.0 [facility] HospitalBlood platelets count by estimate (number/volume)2019-12-01 14:23:00* Test Item Value Reference Range Interpretation Comments Platelet Estimate (test code = 76699-3) ADEQUATE [facility] HospitalPlatelet cdmlzidxak7553-47-80 14:23:00* Test Item Value Reference Range Interpretation Comments Platelet Morphology Comment (test code = 05583-0) NORMAL [facility] HospitalRBC rcjeazecaq6206-14-31 14:23:00* Test Item Value Reference Range Interpretation Comments Red Cell Morphology Comment (test code = 6742-1) NORMAL [facility] HospitalProthrombin time (PT) in platelet poor plasma by coagulation bpviv4824-38-62 14:23:00* Test Item Value Reference Range Interpretation Comments Prothrombin Time (test code = 5902-2) 12.3 11.9-14.5 [facility] HospitalINR in Platelet poor plasma by Coagulation gkdro7037-25-75 14:23:00* Test Item Value Reference Range Interpretation Comments Prothromb Time International Ratio (test code = 6301-6) 0.87 Oral Anticoagulant Therapy INR Values:1. Low Intensity Therapy 1.5 - 2.02 . Moderate Intensity Therapy 2.0 - 3.03. High Intensity Therapy(1) 2.5 - 3. 54. High Intensity Therapy(2) 3.0 - 4.05. Panic Value INR > 5.0 [facility] HospitalActivated partial thromboplastin time (aPTT) in platelet poor plasma by coagulation ilfek3835-72-39 14:23:00* Test Item Value Reference Range Interpretation Comments Activated Partial Thromboplast Time (test code = 49554-2) 26.9 23.8-35.5 [facility] sodium measurement (moles/volume)2019-12-01 14:23:00* Test Item Value Reference Range Interpretation Comments Sodium Level (test code = 2951-2) 132 136-145 [facility] plasma potassium measurement (moles/volume)2019-12-01 14:23:00* Test Item Value Reference Range Interpretation Comments Potassium Level (test code = 2823-3) 4.2 3.5-5.1 [facility] or plasma chloride measurement (moles/volume)2019-12-01 14:23:00* Test Item Value Reference Range Interpretation Comments Chloride Level (test code = 2075-0) 96 98-107 [facility]erum or plasma carbon dioxide, total measurement (moles/volume)2019-12-01 14:23:00* Test Item Value Reference Range Interpretation Comments Carbon Dioxide Level (test code = 2028-9) 27 22-29 [facility]erum or plasma anion rkx9967-54-71 14:23:00* Test Item Value Reference Range Interpretation Comments Anion Gap (test code = 55063-1) 13.2 8-16 [facility]erum or plasma urea nitrogen measurement (mass/volume)2019-12-01 14:23:00* Test Item Value Reference Range Interpretation Comments Blood Urea Nitrogen (test code = 3094-0) 17 7-26 [facility] or plasma creatinine measurement (mass/volume)2019-12-01 14:23:00* Test Item Value Reference Range Interpretation Comments Creatinine (test code = 2160-0) 0.98 0.57-1.11 [facility] or plasma urea nitrogen/creatinine mass ndcup8689-25-99 14:23:00* Test Item Value Reference Range Interpretation Comments BUN/Creatinine Ratio (test code = 3097-3) 17 6- [facility] HospitalEstimated glomerular filtration rate (GFR) vlmzlfhqzmvtx1553-87-87 14:23:00* Test Item Value Reference Range Interpretation Comments Estimat Glomerular Filtration Rate (test code = 217015435) 54 >60 Ranges were taken from the National Kidney Disease Education Program and the [facility] Foundation literature.Reference ranges:60 or greater: Ononkl28-41 ( for 3 consecutive months): Chronic kidney disease 15 or less: Kidney failureMethodist [facility] HospitalGlucose wvzssmdqgra3913-49-73 14:23:00* Test Item Value Reference Range Interpretation Comments Glucose Level (test code = BSN1606) 113 74-118 [facility] or plasma calcium measurement (mass/volume)2019-12-01 14:23:00* Test Item Value Reference Range Interpretation Comments Calcium Level (test code = 58027-3) 10.2 8.4-10.2 [facility] or plasma magnesium measurement (mass/volume)2019-12-01 14:23:00* Test Item Value Reference Range Interpretation Comments Magnesium Level (test code = 08189-2) 2.2 1.3-2.1 [facility] or plasma total bilirubin measurement (mass/volume)2019-12-01 14:23:00* Test Item Value Reference Range Interpretation Comments Total Bilirubin (test code = 1975-2) 0.4 0.2-1.2 [facility] HospitalFluoroscopic procedure less than one hour sbbrwfee6246-70-72 14:23:00* Test Item Value Reference Range Interpretation Comments Aspartate Amino Transf (AST/SGOT) (test code = Aspartate Amino Transf (AST/SGOT)) 24 5-34 [facility] or plasma alanine aminotransferase measurement (enzymatic activity/volume)2019-12-01 14:23:00* Test Item Value Reference Range Interpretation Comments Alanine Aminotransferase (ALT/SGPT) (test code = 1742-6) 25 0-55 [facility]lakeer[facility] or plasma protein measurement (mass/volume)2019-12-01 14:23:00* Test Item Value Reference Range Interpretation Comments Total Protein (test code = 2885-2) 8.5 6.5-8.1 [facility]er[facility] or plasma albumin measurement (mass/volume)2019-12-01 14:23:00* Test Item Value Reference Range Interpretation Comments Albumin (test code = 1751-7) 4.7 3.5-5.0 [facility] HospitalPlasma globulin measurement (mass/volume) 2019-12-01 14:23:00* Test Item Value Reference Range Interpretation Comments Globulin (test code = 24899-5) 3.8 2.3-3.5 [facility]lakeerum or plasma albumin/globulin mass ukqjb8054-66-03 14:23:00* Test Item Value Reference Range Interpretation Comments Albumin/Globulin Ratio (test code = 1759-0) 1.2 0.8-2.0 [facility]er[facility] or plasma alkaline phosphatase measurement (enzymatic activity/volume)2019-12-01 14:23:00* Test Item Value Reference Range Interpretation Comments Alkaline Phosphatase (test code = 6768-6) 97 40-150 [facility] HospitalBNP Clk-rLzx0562-15-15 14:23:00* Test Item Value Reference Range Interpretation Comments B-Type Natriuretic Peptide (test code = 45543-0) 148.2 0-100 [facility]lakeer[facility] or plasma creatine kinase measurement (enzymatic activity/volume)2019-12-01 14:23:00* Test Item Value Reference Range Interpretation Comments Creatine Kinase (test code = 2157-6) 54 29-168 [facility]lakeerum or plasma creatine kinase MB measurement (mass/volume)2019-12-01 14:23:00* Test Item Value Reference Range Interpretation Comments Creatine Kinase MB (test code = 99974-9) 3.80 0-5.0 [facility] HospitalTroponin I measurement by highly sensitive enzyme clkxkhgwmtn1074-54-95 14:23:00* Test Item Value Reference Range Interpretation Comments Troponin I (test code = 66889-3) 0.014 0-0.300 [facility] or plasma lipase measurement (enzymatic activity/volume)2019-12-01 14:23:00* Test Item Value Reference Range Interpretation Comments Lipase (test code = 3040-3) 35 8-78 [facility] HospitalFluoroscopic procedure less than one hour ymvoozll6202-27-24 14:23:00* Test Item Value Reference Range Interpretation Comments Differential Total Cells Counted (test code = Differmary tial Total Cells Counted) 100 [facility] HospitalManual blood neutrophils/100 leukocytes 2019-12-01 14:23:00* Test Item Value Reference Range Interpretation Comments Neutrophils % (Manual) (test code = 35672-0) 92 40-74 [facility] leukocytes 2019-12-01 14:23:00* Test Item Value Reference Range Interpretation Comments Lymphocytes % (Manual) (test code = 737-7) 7 19-48 [facility]ual blood monocytes/100 leukocytes 2019-12-01 14:23:00* Test Item Value Reference Range Interpretation Comments Monocytes % (Manual) (test code = 744-3) 1 3.4-9.0 [facility] HospitalBlood platelets count by estimate (number/volume)2019-12-01 14:23:00* Test Item Value Reference Range Interpretation Comments Platelet Estimate (test code = 24487-9) ADEQUATE [facility] HospitalPlatelet ehdhcloawv3731-06-64 14:23:00* Test Item Value Reference Range Interpretation Comments Platelet Morphology Comment (test code = 48190-0) NORMAL [facility] HospitalRBC kovzzoghvq1236-38-73 14:23:00* Test Item Value Reference Range Interpretation Comments Red Cell Morphology Comment (test code = 6742-1) NORMAL [facility] HospitalProthrombin time (PT) in platelet poor plasma by coagulation kzqgj7208-02-67 14:23:00* Test Item Value Reference Range Interpretation Comments Prothrombin Time (test code = 5902-2) 12.3 11.9-14.5 [facility] HospitalINR in Platelet poor plasma by Coagulation rgotx9704-75-20 14:23:00* Test Item Value Reference Range Interpretation Comments Prothromb Time International Ratio (test code = 6301-6) 0.87 Oral Anticoagulant Therapy INR Values:1. Low Intensity Therapy 1.5 - 2.02 . Moderate Intensity Therapy 2.0 - 3.03. High Intensity Therapy(1) 2.5 - 3. 54. High Intensity Therapy(2) 3.0 - 4.05. Panic Value INR > 5.0 [facility] HospitalActivated partial thromboplastin time (aPTT) in platelet poor plasma by coagulation xxlan8769-21-75 14:23:00* Test Item Value Reference Range Interpretation Comments Activated Partial Thromboplast Time (test code = 56754-5) 26.9 23.8-35.5 [facility] or plasma sodium measurement (moles/volume)2019-12-01 14:23:00* Test Item Value Reference Range Interpretation Comments Sodium Level (test code = 2951-2) 132 136-145 [facility]lakeerum or plasma potassium measurement (moles/volume)2019-12-01 14:23:00* Test Item Value Reference Range Interpretation Comments Potassium Level (test code = 2823-3) 4.2 3.5-5.1 [facility] or plasma chloride measurement (moles/volume)2019-12-01 14:23:00* Test Item Value Reference Range Interpretation Comments Chloride Level (test code = 2075-0) 96 98-107 [facility]erum or plasma carbon dioxide, total measurement (moles/volume)2019-12-01 14:23:00* Test Item Value Reference Range Interpretation Comments Carbon Dioxide Level (test code = 2028-9) 27 22-29 [facility]lakeerum or plasma anion aza3553-16-27 14:23:00* Test Item Value Reference Range Interpretation Comments Anion Gap (test code = 48082-2) 13.2 8-16 [facility]erum or plasma urea nitrogen measurement (mass/volume)2019-12-01 14:23:00* Test Item Value Reference Range Interpretation Comments Blood Urea Nitrogen (test code = 3094-0) 17 7-26 [facility]erum or plasma creatinine measurement (mass/volume)2019-12-01 14:23:00* Test Item Value Reference Range Interpretation Comments Creatinine (test code = 2160-0) 0.98 0.57-1.11 [facility] or plasma urea nitrogen/creatinine mass zlvuv0107-66-25 14:23:00* Test Item Value Reference Range Interpretation Comments BUN/Creatinine Ratio (test code = 3097-3) 17 6-25 [facility] HospitalEstimated glomerular filtration rate (GFR) tzzqwcydatmyz2479-29-44 14:23:00* Test Item Value Reference Range Interpretation Comments Estimat Glomerular Filtration Rate (test code = 028663146) 54 >60 Ranges were taken from the National Kidney Disease Education Program and the [facility] Kid[facility] Foundation literature.Reference ranges:60 or greater: Ltzobr70-99 ( for 3 consecutive months): Chronic kidney disease 15 or less: Kidney failureMethod[facility] HospitalGlucose cgroccpabzd2294-08-89 14:23:00* Test Item Value Reference Range Interpretation Comments Glucose Level (test code = SHR8166) 113 74-118 [facility] or plasma calcium measurement (mass/volume)2019-12-01 14:23:00* Test Item Value Reference Range Interpretation Comments Calcium Level (test code = 24830-2) 10.2 8.4-10.2 [facility]lakeerum or plasma magnesium measurement (mass/volume)2019-12-01 14:23:00* Test Item Value Reference Range Interpretation Comments Magnesium Level (test code = 42050-6) 2.2 1.3-2.1 [facility]lakeerum or plasma total bilirubin measurement (mass/volume)2019-12-01 14:23:00* Test Item Value Reference Range Interpretation Comments Total Bilirubin (test code = 1975-2) 0.4 0.2-1.2 [facility] HospitalFluoroscopic procedure less than one hour afbwnuak6159-80-18 14:23:00* Test Item Value Reference Range Interpretation Comments Aspartate Amino Transf (AST/SGOT) (test code = Aspartate Amino Transf (AST/SGOT)) 24 5-34 [facility] or plasma alanine aminotransferase measurement (enzymatic activity/volume)2019-12-01 14:23:00* Test Item Value Reference Range Interpretation Comments Alanine Aminotransferase (ALT/SGPT) (test code = 1742-6) 25 0-55 [facility]lakeerum or plasma protein measurement (mass/volume)2019-12-01 14:23:00* Test Item Value Reference Range Interpretation Comments Total Protein (test code = 2885-2) 8.5 6.5-8.1 [facility]lakeer[facility] or plasma albumin measurement (mass/volume)2019-12-01 14:23:00* Test Item Value Reference Range Interpretation Comments Albumin (test code = 1751-7) 4.7 3.5-5.0 [facility] HospitalPlasma globulin measurement (mass/volume) 2019-12-01 14:23:00* Test Item Value Reference Range Interpretation Comments Globulin (test code = 42858-7) 3.8 2.3-3.5 [facility]lakeerum or plasma albumin/globulin mass ycxca1958-05-67 14:23:00* Test Item Value Reference Range Interpretation Comments Albumin/Globulin Ratio (test code = 1759-0) 1.2 0.8-2.0 [facility]lakeerum or plasma alkaline phosphatase measurement (enzymatic activity/volume)2019-12-01 14:23:00* Test Item Value Reference Range Interpretation Comments Alkaline Phosphatase (test code = 6768-6) 97 40-150 [facility] HospitalBNP Nqm-oVjw9560-30-15 14:23:00* Test Item Value Reference Range Interpretation Comments B-Type Natriuretic Peptide (test code = 59249-9) 148.2 0-100 [facility]lakeerum or plasma creatine kinase measurement (enzymatic activity/volume)2019-12-01 14:23:00* Test Item Value Reference Range Interpretation Comments Creatine Kinase (test code = 2157-6) 54 29-168 [facility]lakeerum or plasma creatine kinase MB measurement (mass/volume)2019-12-01 14:23:00* Test Item Value Reference Range Interpretation Comments Creatine Kinase MB (test code = 64837-4) 3.80 0-5.0 [facility] HospitalTroponin I measurement by highly sensitive enzyme fddymmeykei2723-49-64 14:23:00* Test Item Value Reference Range Interpretation Comments Troponin I (test code = 58302-5) 0.014 0-0.300 [facility] or plasma lipase measurement (enzymatic activity/volume)2019-12-01 14:23:00* Test Item Value Reference Range Interpretation Comments Lipase (test code = 3040-3) 35 8-78 [facility] HospitalCHEST 2 AQKUX3190-37-66 12:06:00 [facility] [address] [place] [address] Patient Name: FRANK PERRY MR #: [id number] : 1930 Age/Sex: 89/F Req #: [id number] Adm Physician: Ordered by: LILIANA GARCIA MD Report #: [id number] Location: ER Room/Bed: Procedure: [id number] DX/CH EST 2 VIEWS Exam Date: 11/30/19 [...] 12:09 PM Dictated By: ASHER KINNEY MD 1209 Transcribed By: ROLO on 1209 COPY TO: LILIANA GARCIA MD B-Type Natriuretic Peptide 2019-11-30 11:04:00* Test Item Value Reference Range Interpretation Comments B-Type Natriuretic Peptide (test code = 17725-3) 382.2 0-100 H [facility] HospitalB-Type Natriuretic Onvtvfy6635-48-74 11:04:00* Test Item Value Reference Range Interpretation Comments B-Type Natriuretic Peptide (test code = 02045-7) 382.2 0-100 H [facility] HospitalCreatine Kinase AF0293-76-59 11:03:00* Test Item Value Reference Range Interpretation Comments Creatine Kinase MB (test code = 06877-9) 4.30 0-5.0 [facility] HospitalTroponin Z2591-55-23 11:03:00* Test Item Value Reference Range Interpretation Comments Troponin I (test code = MWC2345) 0.010 0-0.300 [facility] HospitalProthrombin Lvvd8011-12-91 10:57:00* Test Item Value Reference Range Interpretation Comments Prothrombin Time (test code = 5902-2) 12.4 11.9-14.5 [facility] HospitalProthromb Time International Ratio 2019-11-30 10:57:00* Test Item Value Reference Range Interpretation Comments Prothromb Time International Ratio (test code = 6301-6) 0.88 Oral Anticoagulant Therapy INR Values:1. Low Intensity Therapy 1.5 - 2.02 . Moderate Intensity Therapy 2.0 - 3.03. High Intensity Therapy(1) 2.5 - 3. 54. High Intensity Therapy(2) 3.0 - 4.05. Panic Value INR > 5.0 [facility] HospitalActivated Partial Thromboplast Time 2019-11-30 10:57:00* Test Item Value Reference Range Interpretation Comments Activated Partial Thromboplast Time (test code = 35432-0) 26.4 23.8-35.5 [facility]lakeodium Nepcj4594-89-71 10:57:00* Test Item Value Reference Range Interpretation Comments Sodium Level (test code = 2951-2) 131 136-145 L [facility] HospitalPotassium Nsyee5527-51-42 10:57:00* Test Item Value Reference Range Interpretation Comments Potassium Level (test code = 2823-3) 4.3 3.5-5.1 [facility] HospitalChloride Ptupg2733-46-93 10:57:00* Test Item Value Reference Range Interpretation Comments Chloride Level (test code = 2075-0) 97 98-107 L [facility] HospitalCarbon Dioxide Qevvm4651-32-47 10:57:00* Test Item Value Reference Range Interpretation Comments Carbon Dioxide Level (test code = 2028-9) 28 22-29 [facility] HospitalAnion Wke1088-64-89 10:57:00* Test Item Value Reference Range Interpretation Comments Anion Gap (test code = 62679-2) 10.3 8-16 [facility] HospitalBlood Urea Kabnoumf4724-88-11 10:57:00* Test Item Value Reference Range Interpretation Comments Blood Urea Nitrogen (test code = 3094-0) 18 7-26 [facility] HospitalCreatinine2020-03-14 10:57:00* Test Item Value Reference Range Interpretation Comments Creatinine (test code = 2160-0) 1.00 0.57-1.11 [facility] HospitalBUN/Creatinine Uanqn8810-59-98 10:57:00* Test Item Value Reference Range Interpretation Comments BUN/Creatinine Ratio (test code = 3097-3) 18 6-25 [facility] HospitalEstimat Glomerular Filtration Rate 2019-11-30 10:57:00* Test Item Value Reference Range Interpretation Comments Estimat Glomerular Filtration Rate (test code = 738494579) 52 >60 L Ranges were taken from the National Kidney Disease Education Program and the [facility] Foundation literature.Reference ranges:60 or greater: Xnmizl31-54 ( for 3 consecutive months): Chronic kidney disease 15 or less: Kidney failureMethodist Southlake HospitalGlucose Cudce3162-77-59 10:57:00* Test Item Value Reference Range Interpretation Comments Glucose Level (test code = GCB9129) 94 74-118 [facility] HospitalCalcium Coxsn1269-42-18 10:57:00* Test Item Value Reference Range Interpretation Comments Calcium Level (test code = 64144-3) 10.1 8.4-10.2 [facility] HospitalMagnesium Nebpr7584-86-87 10:57:00* Test Item Value Reference Range Interpretation Comments Magnesium Level (test code = 37330-1) 2.1 1.3-2.1 [facility] HospitalTotal Vghzgqzqt1509-13-20 10:57:00* Test Item Value Reference Range Interpretation Comments Total Bilirubin (test code = 1975-2) 0.4 0.2-1.2 [facility] HospitalAspartate Amino Transf (AST/SGOT) 2019-11-30 10:57:00* Test Item Value Reference Range Interpretation Comments Aspartate Amino Transf (AST/SGOT) (test code = Aspartate Amino Transf (AST/SGOT)) 22 5-34 [facility] HospitalAlanine Aminotransferase (ALT/SGPT) 2019-11-30 10:57:00* Test Item Value Reference Range Interpretation Comments Alanine Aminotransferase (ALT/SGPT) (test code = 1742-6) 18 0-55 [facility] HospitalTotal Qzzhfrr1336-23-63 10:57:00* Test Item Value Reference Range Interpretation Comments Total Protein (test code = 2885-2) 7.4 6.5-8.1 [facility] HospitalAlbumin2020-03-14 10:57:00* Test Item Value Reference Range Interpretation Comments Albumin (test code = 1751-7) 4.2 3.5-5.0 [facility] HospitalGlobulin2020-03-14 10:57:00* Test Item Value Reference Range Interpretation Comments Globulin (test code = 32867-1) 3.2 2.3-3.5 [facility] HospitalAlbumin/Globulin Ferqp1495-41-33 10:57:00 * Test Item Value Reference Range Interpretation Comments Albumin/Globulin Ratio (test code = 1759-0) 1.3 0.8-2.0 [facility] HospitalAlkaline Iphytkxxpbf0570-78-56 10:57:00* Test Item Value Reference Range Interpretation Comments Alkaline Phosphatase (test code = 6768-6) 79 40-150 [facility] HospitalCreatine Fbntov8530-25-39 10:57:00* Test Item Value Reference Range Interpretation Comments Creatine Kinase (test code = 2157-6) 77 29-168 [facility] HospitalUrine USS6892-82-41 10:56:00* Test Item Value Reference Range Interpretation Comments Urine WBC (test code = 5821-4) 11-20 0-5 H [facility] HospitalU[facility] IBZ9907-28-84 10:56:00* Test Item Value Reference Range Interpretation Comments Urine RBC (test code = 48038-2) 6-10 0-5 H [facility] HospitalU[facility] Rhbailql0981-17-94 10:56:00* Test Item Value Reference Range Interpretation Comments Urine Bacteria (test code = 58018-0) RARE NONE [facility] HospitalU[facility] Epithelial Ivhov9994-98-14 10:56:00 * Test Item Value Reference Range Interpretation Comments Urine Epithelial Cells (test code = 25582-9) FEW NONE [facility] HospitalCT BRAIN KW6285-97-47 10:53:00 [facility] [address] [address] Patient Name: FRANK PERRY MR #: [id number] : 1930 Age/Sex: 89/F Req #: [id number] Adm Physician: Ordered by: LILIANA GARCIA MD Report #: [id number] Location: ER Room/Bed: Procedure: [id number] CT/CT BRAIN WO Exam Date: 11/30/19 Exam [...] 1056 COPY TO: LILIANA GARCIA MD Urine Qsabg2446-28-39 10:45:00* Test Item Value Reference Range Interpretation Comments Urine Color (test code = 5778-6) YELLOW YELLOW [facility] Lhscxvq9252-13-55 10:45:00* Test Item Value Reference Range Interpretation Comments Urine Clarity (test code = 64078-1) CLEAR CLEAR [facility] Specific Cfslaoc5940-03-41 10:45:00 * Test Item Value Reference Range Interpretation Comments Urine Specific [place] (test code = 5811-5) 1.025 1.010-1.02 5 [facility] oQ4271-30-88 10:45:00* Test Item Value Reference Range Interpretation Comments Urine pH (test code = 79990-7) 7 5-7 [facility] Leukocyte Ssbnawsz3677-07-46 10:45:00* Test Item Value Reference Range Interpretation Comments Urine Leukocyte Esterase (test code = 5799-2) TRACE NEGATIVE H [facility] Zwuvjgu1748-67-32 10:45:00* Test Item Value Reference Range Interpretation Comments Urine Nitrite (test code = 65777-0) NEGATIVE NEGATIVE [facility] Vvxiijp9451-60-99 10:45:00* Test Item Value Reference Range Interpretation Comments Urine Protein (test code = 5804-0) NEGATIVE NEGATIVE [facility] HospitalU[facility] Glucose (UA)2019-11-30 10:45:00* Test Item Value Reference Range Interpretation Comments Urine Glucose (UA) (test code = 2349-9) NEGATIVE NEGATIVE [facility] Lmniehv7163-76-18 10:45:00* Test Item Value Reference Range Interpretation Comments Urine Ketones (test code = 89966-5) NEGATIVE NEGATIVE [facility] HospitalU[facility] Onbtijigkjwh1386-66-65 10:45:00* Test Item Value Reference Range Interpretation Comments Urine Urobilinogen (test code = 53143-7) 0.2 0.2-1 [facility] Ejhqaogws5249-85-06 10:45:00* Test Item Value Reference Range Interpretation Comments Urine Bilirubin (test code = 1978-6) NEGATIVE NEGATIVE [facility] Vmglu1189-23-45 10:45:00* Test Item Value Reference Range Interpretation Comments Urine Blood (test code = 11969-2) TRACE NEGATIVE H [facility] HospitalWhite Blood Dirzi8744-91-04 10:41:00* Test Item Value Reference Range Interpretation Comments White Blood Count (test code = 6690-2) 13.01 4.8-10.8 H [facility] HospitalRed Blood Ygjzw3723-65-19 10:41:00* Test Item Value Reference Range Interpretation Comments Red Blood Count (test code = 789-8) 4.45 3.6-5.1 [facility] HospitalHemoglobin2020-03-14 10:41:00* Test Item Value Reference Range Interpretation Comments Hemoglobin (test code = 36450-0) 13.4 12.0-16.0 [facility] HospitalHematocrit2020-03-14 10:41:00* Test Item Value Reference Range Interpretation Comments Hematocrit (test code = 4544-3) 39.9 34.2-44.1 [facility] HospitalMean Corpuscular Jncknp3293-88-16 10:41:00* Test Item Value Reference Range Interpretation Comments Mean Corpuscular Volume (test code = 787-2) 89.7 81-99 [facility] HospitalMean Corpuscular Bqxjzjzuwx7312-30-23 10:41:00* Test Item Value Reference Range Interpretation Comments Mean Corpuscular Hemoglobin (test code = 785-6) 30.1 28-32 [facility] HospitalMean Corpuscular Hemoglobin Concent 2019-11-30 10:41:00* Test Item Value Reference Range Interpretation Comments Mean Corpuscular Hemoglobin Concent (test code = 786-4) 33.6 31-35 [facility] HospitalRed Cell Distribution Rcaoq7007-96-41 10:41:00* Test Item Value Reference Range Interpretation Comments Red Cell Distribution Width (test code = 98758-7) 13.1 11.7 -14.4 [facility] HospitalPlatelet Sfomg2090-29-21 10:41:00* Test Item Value Reference Range Interpretation Comments Platelet Count (test code = 777-3) 257 140-360 [facility] HospitalNeutrophils (%) (Auto)2019-11-30 10:41:00 * Test Item Value Reference Range Interpretation Comments Neutrophils (%) (Auto) (test code = 53292-9) 87.3 38.7-80.0 H [facility] HospitalLymphocytes (%) (Auto)2019-11-30 10:41:00 * Test Item Value Reference Range Interpretation Comments Lymphocytes (%) (Auto) (test code = 736-9) 6.7 18.0-39.1 L [facility] HospitalMonocytes (%) (Auto)2019-11-30 10:41:00* Test Item Value Reference Range Interpretation Comments Monocytes (%) (Auto) (test code = 5905-5) 5.1 4.4-11.3 [facility] HospitalEosinophils (%) (Auto)2019-11-30 10:41:00 * Test Item Value Reference Range Interpretation Comments Eosinophils (%) (Auto) (test code = 713-8) 0.0 0.0-6.0 [facility] HospitalBasophils (%) (Auto)2019-11-30 10:41:00* Test Item Value Reference Range Interpretation Comments Basophils (%) (Auto) (test code = 706-2) 0.1 0.0-1.0 [facility] HospitalIM GRANULOCYTES %2019-11-30 10:41:00* Test Item Value Reference Range Interpretation Comments IM GRANULOCYTES % (test code = IM GRANULOCYTES %) 0.8 0.0- 1.0 [facility] HospitalNeutrophils # (Auto)2019-11-30 10:41:00* Test Item Value Reference Range Interpretation Comments Neutrophils # (Auto) (test code = 751-8) 11.4 2.1-6.9 H [facility] HospitalLymphocytes # (Auto)2019-11-30 10:41:00* Test Item Value Reference Range Interpretation Comments Lymphocytes # (Auto) (test code = 49072-8) 0.9 1.0-3.2 L [facility] HospitalMonocytes # (Auto)2019-11-30 10:41:00* Test Item Value Reference Range Interpretation Comments Monocytes # (Auto) (test code = 742-7) 0.7 0.2-0.8 [facility] HospitalEosinophils # (Auto)2019-11-30 10:41:00* Test Item Value Reference Range Interpretation Comments Eosinophils # (Auto) (test code = 711-2) 0.0 0.0-0.4 [facility] HospitalBasophils # (Auto)2019-11-30 10:41:00* Test Item Value Reference Range Interpretation Comments Basophils # (Auto) (test code = 704-7) 0.0 0.0-0.1 [facility] HospitalAbsolute Immature Granulocyte (auto 2019-11-30 10:41:00* Test Item Value Reference Range Interpretation Comments Absolute Immature Granulocyte (auto (inocente t code = Absolute Immature Granulocyte (auto) 0.11 0-0.1 H [facility] HospitalUrine Mzoubvi5373-99-47 09:40:00* Test Item Value Reference Range Interpretation Comments Urine Culture (test code = 630-4) No Result Data Provided [facility] HospitalUrine Snhsgth5586-68-26 09:40:00* Test Item Value Reference Range Interpretation Comments Urine Culture (test code = 630-4) No Result Data Provided [facility] HospitalCreatine Kinase PS6470-87-07 15:26:00* Test Item Value Reference Range Interpretation Comments Creatine Kinase MB (test code = 31722-6) 3.70 0-5.0 [facility] HospitalTroponin N0383-56-32 15:26:00* Test Item Value Reference Range Interpretation Comments Troponin I (test code = JCL8643) 0.017 0-0.300 [facility] Jbtlf1161-43-55 14:52:00* Test Item Value Reference Range Interpretation Comments Sodium Level (test code = 2951-2) 135 136-145 L [facility] HospitalPotassium Vzhhj9081-94-93 14:52:00* Test Item Value Reference Range Interpretation Comments Potassium Level (test code = 2823-3) 4.1 3.5-5.1 [facility] HospitalChloride Dtiwh9427-14-11 14:52:00* Test Item Value Reference Range Interpretation Comments Chloride Level (test code = 2075-0) 97 98-107 L [facility] HospitalCarbon Dioxide Yhpai1654-21-37 14:52:00* Test Item Value Reference Range Interpretation Comments Carbon Dioxide Level (test code = 2028-9) 27 22-29 [facility] HospitalAnion Clp5968-19-57 14:52:00* Test Item Value Reference Range Interpretation Comments Anion Gap (test code = 41722-7) 15.1 8-16 [facility] HospitalBlood Urea Wlnhahox1583-33-87 14:52:00* Test Item Value Reference Range Interpretation Comments Blood Urea Nitrogen (test code = 3094-0) 16 7-26 [facility] HospitalCreatinine2020-01-31 14:52:00* Test Item Value Reference Range Interpretation Comments Creatinine (test code = 2160-0) 0.89 0.57-1.11 [facility] HospitalBUN/Creatinine Almpm7414-70-12 14:52:00* Test Item Value Reference Range Interpretation Comments BUN/Creatinine Ratio (test code = 3097-3) 18 6-25 [facility] HospitalEstimat Glomerular Filtration Rate 2019-10-18 14:52:00* Test Item Value Reference Range Interpretation Comments Estimat Glomerular Filtration Rate (test code = 081966278) 60 >60 Ranges were taken from the National Kidney Disease Education Program and the [place] literature.Reference ranges:60 or greater: Psjnvy81-98 ( for 3 consecutive months): Chronic kidney disease 15 or less: Kidney failureMethodist Southlake HospitalGlucose Ivdhh2557-90-46 14:52:00* Test Item Value Reference Range Interpretation Comments Glucose Level (test code = IPM5094) 101 74-118 [facility] HospitalCalcium Lichl0143-31-20 14:52:00* Test Item Value Reference Range Interpretation Comments Calcium Level (test code = 68623-6) 10.1 8.4-10.2 [facility] HospitalMagnesium Ccrtg8962-51-56 14:52:00* Test Item Value Reference Range Interpretation Comments Magnesium Level (test code = 15785-4) 2.0 1.3-2.1 [facility] HospitalTotal Pxtbvmqie3713-70-95 14:52:00* Test Item Value Reference Range Interpretation Comments Total Bilirubin (test code = 1975-2) 0.4 0.2-1.2 [facility] HospitalAspartate Amino Transf (AST/SGOT) 2019-10-18 14:52:00* Test Item Value Reference Range Interpretation Comments Aspartate Amino Transf (AST/SGOT) (test code = Aspartate Amino Transf (AST/SGOT)) 19 5-34 [facility] HospitalAlanine Aminotransferase (ALT/SGPT) 2019-10-18 14:52:00* Test Item Value Reference Range Interpretation Comments Alanine Aminotransferase (ALT/SGPT) (test code = 1742-6) 16 0-55 [facility] HospitalTotal Gidfybo8530-16-69 14:52:00* Test Item Value Reference Range Interpretation Comments Total Protein (test code = 2885-2) 7.3 6.5-8.1 [facility] HospitalAlbumin2020-01-31 14:52:00* Test Item Value Reference Range Interpretation Comments Albumin (test code = 1751-7) 3.9 3.5-5.0 [facility] HospitalGlobulin2020-01-31 14:52:00* Test Item Value Reference Range Interpretation Comments Globulin (test code = 92206-2) 3.4 2.3-3.5 [facility] HospitalAlbumin/Globulin Wfgfh4893-11-46 14:52:00 * Test Item Value Reference Range Interpretation Comments Albumin/Globulin Ratio (test code = 1759-0) 1.1 0.8-2.0 [facility] HospitalAlkaline Tzqmgheeypb0268-87-81 14:52:00* Test Item Value Reference Range Interpretation Comments Alkaline Phosphatase (test code = 6768-6) 88 40-150 [facility] HospitalCreatine Bicwbu2806-59-57 14:52:00* Test Item Value Reference Range Interpretation Comments Creatine Kinase (test code = 2157-6) 57 29-168 [facility] HospitalProthrombin Dnrh8054-08-34 14:47:00* Test Item Value Reference Range Interpretation Comments Prothrombin Time (test code = 5902-2) 12.3 11.9-14.5 [facility] HospitalProthromb Time International Ratio 2019-10-18 14:47:00* Test Item Value Reference Range Interpretation Comments Prothromb Time International Ratio (test code = 6301-6) 0.90 Oral Anticoagulant Therapy INR Values:1. Low Intensity Therapy 1.5 - 2.02 . Moderate Intensity Therapy 2.0 - 3.03. High Intensity Therapy(1) 2.5 - 3. 54. High Intensity Therapy(2) 3.0 - 4.05. Panic Value INR > 5.0 [facility] HospitalActivated Partial Thromboplast Time 2019-10-18 14:47:00* Test Item Value Reference Range Interpretation Comments Activated Partial Thromboplast Time (test code = 27333-0) 31.0 23.8-35.5 [facility] HospitalWhite Blood Rryte0968-79-24 14:33:00* Test Item Value Reference Range Interpretation Comments White Blood Count (test code = 6690-2) 8.10 4.8-10.8 [facility] HospitalRed Blood Qtekx1531-00-67 14:33:00* Test Item Value Reference Range Interpretation Comments Red Blood Count (test code = 789-8) 4.60 3.6-5.1 [facility] HospitalHemoglobin2020-01-31 14:33:00* Test Item Value Reference Range Interpretation Comments Hemoglobin (test code = 04136-3) 13.8 12.0-16.0 [facility] HospitalHematocrit2020-01-31 14:33:00* Test Item Value Reference Range Interpretation Comments Hematocrit (test code = 4544-3) 40.9 34.2-44.1 [facility] HospitalMean Corpuscular Cryjjl6087-94-70 14:33:00* Test Item Value Reference Range Interpretation Comments Mean Corpuscular Volume (test code = 787-2) 88.9 81-99 [facility] HospitalMean Corpuscular Foxmmttcqw7358-68-33 14:33:00* Test Item Value Reference Range Interpretation Comments Mean Corpuscular Hemoglobin (test code = 785-6) 30.0 28-32 [facility] HospitalMean Corpuscular Hemoglobin Concent 2019-10-18 14:33:00* Test Item Value Reference Range Interpretation Comments Mean Corpuscular Hemoglobin Concent (test code = 786-4) 33.7 31-35 [facility] HospitalRed Cell Distribution Vqrll5634-64-39 14:33:00* Test Item Value Reference Range Interpretation Comments Red Cell Distribution Width (test code = 46791-4) 12.9 11.7 -14.4 [facility] HospitalPlatelet Bnydk5102-86-11 14:33:00* Test Item Value Reference Range Interpretation Comments Platelet Count (test code = 777-3) 310 140-360 [facility] HospitalNeutrophils (%) (Auto)2019-10-18 14:33:00 * Test Item Value Reference Range Interpretation Comments Neutrophils (%) (Auto) (test code = 59503-8) 66.4 38.7-80.0 [facility] HospitalLymphocytes (%) (Auto)2019-10-18 14:33:00 * Test Item Value Reference Range Interpretation Comments Lymphocytes (%) (Auto) (test code = 736-9) 16.8 18.0-39.1 L [facility] HospitalMonocytes (%) (Auto)2019-10-18 14:33:00* Test Item Value Reference Range Interpretation Comments Monocytes (%) (Auto) (test code = 5905-5) 7.2 4.4-11.3 [facility] HospitalEosinophils (%) (Auto)2019-10-18 14:33:00 * Test Item Value Reference Range Interpretation Comments Eosinophils (%) (Auto) (test code = 713-8) 3.0 0.0-6.0 [facility] HospitalBasophils (%) (Auto)2019-10-18 14:33:00* Test Item Value Reference Range Interpretation Comments Basophils (%) (Auto) (test code = 706-2) 1.2 0.0-1.0 H [facility] HospitalIM GRANULOCYTES %2019-10-18 14:33:00* Test Item Value Reference Range Interpretation Comments IM GRANULOCYTES % (test code = IM GRANULOCYTES %) 5.4 0.0- 1.0 H [facility] HospitalNeutrophils # (Auto)2019-10-18 14:33:00* Test Item Value Reference Range Interpretation Comments Neutrophils # (Auto) (test code = 751-8) 5.4 2.1-6.9 [facility] HospitalLymphocytes # (Auto)2019-10-18 14:33:00* Test Item Value Reference Range Interpretation Comments Lymphocytes # (Auto) (test code = 27997-4) 1.4 1.0-3.2 [facility] HospitalMonocytes # (Auto)2019-10-18 14:33:00* Test Item Value Reference Range Interpretation Comments Monocytes # (Auto) (test code = 742-7) 0.6 0.2-0.8 [facility] HospitalEosinophils # (Auto)2019-10-18 14:33:00* Test Item Value Reference Range Interpretation Comments Eosinophils # (Auto) (test code = 711-2) 0.2 0.0-0.4 [facility] HospitalBasophils # (Auto)2019-10-18 14:33:00* Test Item Value Reference Range Interpretation Comments Basophils # (Auto) (test code = 704-7) 0.1 0.0-0.1 [facility] HospitalAbsolute Immature Granulocyte (auto 2019-10-18 14:33:00* Test Item Value Reference Range Interpretation Comments Absolute Immature Granulocyte (auto (inocente t code = Absolute Immature Granulocyte (auto) 0.44 0-0.1 H [facility] HospitalCT ABDOMEN/PELVIS QF9476-66-38 14:33:00 [facility] [address] [address] Patient Name: FRANK PERRY MR #: [id number] : 1930 Age/Sex: 89/F Req #: [id number] Adm Physician: Ordered by: LILIANA GARCIA MD Report #: [id number] Location: ER Room/Bed: Procedure: [id number] CT/CT ABDOMEN/PELVIS WO Exam Date: 10/18/19 Exam [...] 1443 COPY TO: LILIANA SANZ MD Urine WSL5524-95-86 12:33:00* Test Item Value Reference Range Interpretation Comments Urine WBC (test code = 5821-4) 6-10 0-5 H [facility] HospitalUrine PGQ7444-25-46 12:33:00* Test Item Value Reference Range Interpretation Comments Urine RBC (test code = 66985-5) 11-20 0-5 H [facility] HospitalUrine Qilhqscf2466-47-99 12:33:00* Test Item Value Reference Range Interpretation Comments Urine Bacteria (test code = 63960-6) MODERATE NONE H [facility] HospitalUrine Epithelial Xwbwx9556-54-30 12:33:00 * Test Item Value Reference Range Interpretation Comments Urine Epithelial Cells (test code = 92724-8) FEW NONE [facility] HospitalUrine Pbkjy2999-51-40 12:26:00* Test Item Value Reference Range Interpretation Comments Urine Color (test code = 5778-6) YELLOW YELLOW [facility] HospitalUrine Elojvtq0689-70-56 12:26:00* Test Item Value Reference Range Interpretation Comments Urine Clarity (test code = 97197-6) CLEAR CLEAR [facility] Specific Mgkdnxo4879-08-23 12:26:00 * Test Item Value Reference Range Interpretation Comments Urine Specific [place] (test code = 5811-5) 1.020 1.010-1.02 5 [facility] HospitalUrine hV4851-37-87 12:26:00* Test Item Value Reference Range Interpretation Comments Urine pH (test code = 36679-2) 7 5-7 [facility] Leukocyte Currgfjr5798-17-85 12:26:00* Test Item Value Reference Range Interpretation Comments Urine Leukocyte Esterase (test code = 5799-2) NEGATIVE NEGATIVE [facility] Bhzjmik9397-23-15 12:26:00* Test Item Value Reference Range Interpretation Comments Urine Nitrite (test code = 89053-4) NEGATIVE NEGATIVE [facility] HospitalUrine Pbzsixd6359-57-29 12:26:00* Test Item Value Reference Range Interpretation Comments Urine Protein (test code = 5804-0) NEGATIVE NEGATIVE [facility] Glucose (UA)2019-10-18 12:26:00* Test Item Value Reference Range Interpretation Comments Urine Glucose (UA) (test code = 2349-9) NEGATIVE NEGATIVE [facility] Cgurkug8496-59-50 12:26:00* Test Item Value Reference Range Interpretation Comments Urine Ketones (test code = 51449-6) NEGATIVE NEGATIVE [facility] Dkdrnuolztsx3854-83-34 12:26:00* Test Item Value Reference Range Interpretation Comments Urine Urobilinogen (test code = 81577-8) 0.2 0.2-1 [facility] Uzawklykc1297-30-50 12:26:00* Test Item Value Reference Range Interpretation Comments Urine Bilirubin (test code = 1978-6) NEGATIVE NEGATIVE [facility] HospitalUrine Zertd7148-67-21 12:26:00* Test Item Value Reference Range Interpretation Comments Urine Blood (test code = 43348-6) TRACE NEGATIVE H [facility] HospitalBacterial urine irhogal6764-39-94 10:13:00* Test Item Value Reference Range Interpretation Comments Urine Culture (test code = 630-4) PSEUDOMONAS AERUGINOSA [facility] HospitalBacterial urine bzyfcoy9790-75-62 10:13:00* Test Item Value Reference Range Interpretation Comments Urine Culture (test code = 630-4) PSEUDOMONAS [facility]ERUGINOSA [facility] Wrjiz1607-03-15 02:58:00* Test Item Value Reference Range Interpretation Comments Sodium Level (test code = 2951-2) 136 136-145 [facility] HospitalPotassium Mvass3379-30-89 02:58:00* Test Item Value Reference Range Interpretation Comments Potassium Level (test code = 2823-3) 3.9 3.5-5.1 [facility] HospitalChloride Mnmvl4358-27-89 02:58:00* Test Item Value Reference Range Interpretation Comments Chloride Level (test code = 2075-0) 99 98-107 [facility] HospitalCarbon Dioxide Dpftg9282-62-39 02:58:00* Test Item Value Reference Range Interpretation Comments Carbon Dioxide Level (test code = 2028-9) 24 22-29 [facility] HospitalAnion Sxt6645-79-06 02:58:00* Test Item Value Reference Range Interpretation Comments Anion Gap (test code = 49369-5) 16.9 8-16 H [facility] HospitalBlood Urea Nagacqhq3932-94-70 02:58:00* Test Item Value Reference Range Interpretation Comments Blood Urea Nitrogen (test code = 3094-0) 15 7-26 [facility] HospitalCreatinine2020-01-28 02:58:00* Test Item Value Reference Range Interpretation Comments Creatinine (test code = 2160-0) 1.01 0.57-1.11 [facility] HospitalBUN/Creatinine Gppms5149-36-67 02:58:00* Test Item Value Reference Range Interpretation Comments BUN/Creatinine Ratio (test code = 3097-3) 15 6-25 [facility] HospitalEstimat Glomerular Filtration Rate 2019-10-15 02:58:00* Test Item Value Reference Range Interpretation Comments Estimat Glomerular Filtration Rate (test code = 378000358) 52 >60 L Ranges were taken from the National Kidney Disease Education Program and the [facility] Kid[facility] Foundation literature.Reference ranges:60 or greater: Vxtfum77-39 ( for 3 consecutive months): Chronic kidney disease 15 or less: Kidney failureMethodist Southlake HospitalGlucose Jlyqi2131-09-31 02:58:00* Test Item Value Reference Range Interpretation Comments Glucose Level (test code = ICK9437) 96 74-118 [facility] HospitalCalcium Ogteh1313-10-11 02:58:00* Test Item Value Reference Range Interpretation Comments Calcium Level (test code = 72826-4) 9.7 8.4-10.2 [facility] HospitalUrine SDN1185-49-57 02:54:00* Test Item Value Reference Range Interpretation Comments Urine WBC (test code = 5821-4) 11-20 0-5 H [facility] HospitalUrine OSB4497-03-81 02:54:00* Test Item Value Reference Range Interpretation Comments Urine RBC (test code = 89448-6) 0-5 0-5 [facility] HospitalUrine Aqplybom0243-26-19 02:54:00* Test Item Value Reference Range Interpretation Comments Urine Bacteria (test code = 20458-0) FEW NONE [facility] HospitalUrine Epithelial Veigf7958-80-83 02:54:00 * Test Item Value Reference Range Interpretation Comments Urine Epithelial Cells (test code = 53319-2) FEW NONE [facility] HospitalWhite Blood Caprf5910-84-00 02:40:00* Test Item Value Reference Range Interpretation Comments White Blood Count (test code = 6690-2) 8.47 4.8-10.8 [facility] HospitalRed Blood Jipxs7178-23-67 02:40:00* Test Item Value Reference Range Interpretation Comments Red Blood Count (test code = 789-8) 4.68 3.6-5.1 [facility] HospitalHemoglobin2020-01-28 02:40:00* Test Item Value Reference Range Interpretation Comments Hemoglobin (test code = 74403-0) 14.1 12.0-16.0 [facility] HospitalHematocrit2020-01-28 02:40:00* Test Item Value Reference Range Interpretation Comments Hematocrit (test code = 4544-3) 41.8 34.2-44.1 [facility] HospitalMean Corpuscular Ctkkpe9493-01-30 02:40:00* Test Item Value Reference Range Interpretation Comments Mean Corpuscular Volume (test code = 787-2) 89.3 81-99 [facility] HospitalMean Corpuscular Pqyerpwxzd6160-46-86 02:40:00* Test Item Value Reference Range Interpretation Comments Mean Corpuscular Hemoglobin (test code = 785-6) 30.1 28-32 [facility] HospitalMean Corpuscular Hemoglobin Concent 2019-10-15 02:40:00* Test Item Value Reference Range Interpretation Comments Mean Corpuscular Hemoglobin Concent (test code = 786-4) 33.7 31-35 [facility] HospitalRed Cell Distribution Qpdwz2970-26-19 02:40:00* Test Item Value Reference Range Interpretation Comments Red Cell Distribution Width (test code = 65598-0) 13.0 11.7 -14.4 [facility] HospitalPlatelet Zicuo5831-57-18 02:40:00* Test Item Value Reference Range Interpretation Comments Platelet Count (test code = 777-3) 278 140-360 [facility] HospitalNeutrophils (%) (Auto)2019-10-15 02:40:00 * Test Item Value Reference Range Interpretation Comments Neutrophils (%) (Auto) (test code = 74978-1) 74.8 38.7-80.0 [facility] HospitalLymphocytes (%) (Auto)2019-10-15 02:40:00 * Test Item Value Reference Range Interpretation Comments Lymphocytes (%) (Auto) (test code = 736-9) 10.3 18.0-39.1 L [facility] HospitalMonocytes (%) (Auto)2019-10-15 02:40:00* Test Item Value Reference Range Interpretation Comments Monocytes (%) (Auto) (test code = 5905-5) 6.6 4.4-11.3 [facility] HospitalEosinophils (%) (Auto)2019-10-15 02:40:00 * Test Item Value Reference Range Interpretation Comments Eosinophils (%) (Auto) (test code = 713-8) 5.7 0.0-6.0 [facility] HospitalBasophils (%) (Auto)2019-10-15 02:40:00* Test Item Value Reference Range Interpretation Comments Basophils (%) (Auto) (test code = 706-2) 0.6 0.0-1.0 [facility] HospitalIM GRANULOCYTES %2019-10-15 02:40:00* Test Item Value Reference Range Interpretation Comments IM GRANULOCYTES % (test code = IM GRANULOCYTES %) 2.0 0.0- 1.0 H [facility] HospitalNeutrophils # (Auto)2019-10-15 02:40:00* Test Item Value Reference Range Interpretation Comments Neutrophils # (Auto) (test code = 751-8) 6.3 2.1-6.9 [facility] HospitalLymphocytes # (Auto)2019-10-15 02:40:00* Test Item Value Reference Range Interpretation Comments Lymphocytes # (Auto) (test code = 87447-8) 0.9 1.0-3.2 L [facility] HospitalMonocytes # (Auto)2019-10-15 02:40:00* Test Item Value Reference Range Interpretation Comments Monocytes # (Auto) (test code = 742-7) 0.6 0.2-0.8 [facility] HospitalEosinophils # (Auto)2019-10-15 02:40:00* Test Item Value Reference Range Interpretation Comments Eosinophils # (Auto) (test code = 711-2) 0.5 0.0-0.4 H [facility] HospitalBasophils # (Auto)2019-10-15 02:40:00* Test Item Value Reference Range Interpretation Comments Basophils # (Auto) (test code = 704-7) 0.1 0.0-0.1 [facility] HospitalAbsolute Immature Granulocyte (auto 2019-10-15 02:40:00* Test Item Value Reference Range Interpretation Comments Absolute Immature Granulocyte (auto (inocente t code = Absolute Immature Granulocyte (auto) 0.17 0-0.1 H [facility] HospitalUrine Retyr9626-34-36 02:40:00* Test Item Value Reference Range Interpretation Comments Urine Color (test code = 5778-6) YELLOW YELLOW [facility] HospitalUrine Lkmbeki4879-49-33 02:40:00* Test Item Value Reference Range Interpretation Comments Urine Clarity (test code = 05854-2) CLEAR CLEAR [facility] HospitalUrine Specific Nqzayyo5377-04-56 02:40:00 * Test Item Value Reference Range Interpretation Comments Urine Specific [place] (test code = 5811-5) 1.020 1.010-1.02 5 [facility] HospitalUrine pG0352-48-72 02:40:00* Test Item Value Reference Range Interpretation Comments Urine pH (test code = 69143-0) 8 5-7 [facility] HospitalUrine Leukocyte Dfarmqen3741-88-23 02:40:00* Test Item Value Reference Range Interpretation Comments Urine Leukocyte Esterase (test code = 5799-2) TRACE NEGATIVE H [facility] HospitalUrine Pkwmisl0739-09-80 02:40:00* Test Item Value Reference Range Interpretation Comments Urine Nitrite (test code = 58738-9) NEGATIVE NEGATIVE [facility] HospitalUrine Tfgnlux8493-55-12 02:40:00* Test Item Value Reference Range Interpretation Comments Urine Protein (test code = 5804-0) NEGATIVE NEGATIVE [facility] HospitalUrine Glucose (UA)2019-10-15 02:40:00* Test Item Value Reference Range Interpretation Comments Urine Glucose (UA) (test code = 2349-9) NEGATIVE NEGATIVE [facility] HospitalUrine Wbakxle6631-50-69 02:40:00* Test Item Value Reference Range Interpretation Comments Urine Ketones (test code = 89779-7) NEGATIVE NEGATIVE [facility] HospitalUrine Lhnzhelmbbap2556-95-24 02:40:00* Test Item Value Reference Range Interpretation Comments Urine Urobilinogen (test code = 22897-3) 0.2 0.2-1 [facility] HospitalUrine Euahnazci6759-90-93 02:40:00* Test Item Value Reference Range Interpretation Comments Urine Bilirubin (test code = 1978-6) NEGATIVE NEGATIVE [facility] HospitalUrine Qgvan8747-38-27 02:40:00* Test Item Value Reference Range Interpretation Comments Urine Blood (test code = 56530-3) TRACE NEGATIVE H [facility] HospitalABDOMEN-[facility]VIEW ([facility])2019-10-15 02:28:00 [place] [address] Patient Name: FRANK PERRY MR #: [id number] : 1930 Age/Sex: 89/F Req #: [id number] Adm Physician: Ordered by: ELIZABETH JAMES MD Report #: [id number] Location: ER Room/Bed: Procedure: [id number] 4 DX/ABDOMEN-1VIEW [...] represent atelectasis or pneumonia. Signed by: Dr. Slama Lopez MD on 10/15/2019 2:31 AM Dictated By: SALMA LOPEZ MD Electronically Si gned By: SALMA LOPEZ MD on 10/15/19230 Transcribed By: ROLO on 10/15 COPY TO: ELIZABETH JAMES MD ABDOMEN-1VIEW ([facility]) 2019-09-27 11:22:00 [place] [address] Patient Name: FRANK PERRY MR #: [id number] : 1930 Age/Sex: 89/F Req #: [id number] Adm Physician: Ordered by: TADEO HERNANDEZ MD Report #: [id number] Location: [facility] Room/Bed: Procedure: [id number] DX/AB DOMEN-1VIEW ([facility]) Exam Date: 09/27/19 Exam Time: 103 0 [...] Signed By: YUMIKO RICH MD on 09/27/19 1123 Transcribed By: ROLO on 0 1123 COPY TO: TADEO HERNANDEZ MD SACRUM MQDFMV0725-60-78 15:43:00 [place] [address] Patient Name: FRANK PERRY MR #: [id number] : 1930 Age/Sex: 89/F Req #: [id number] Adm Physician: Ordered by: TSERING CAMERON MD Report #: [id number] Location: ER Room/Bed: Procedure: [id number] D X/SACRUM COCCYX Exam Date: 08/09/19 Exam [...] TSERING CAMERON MD SP LUMBAR, COMPLETE MIN 8US1509-02-46 15:43:00 [place] [address] Patient Name: FRANK PERRY MR #: [id number] : 1930 Age/Sex: 89/F Req #: [id number] Adm Physician: Ordered by: TSERING CAMERON MD Report #: [id number] Location: ER Room/Bed: Procedure: [id number] D X/SP LUMBAR, COMPLETE MIN 4VW Exam [...] 08/09/191545 COPY TO: TSERING CAMERON MD Urine Nzthq2046-37-49 15:16:00* Test Item Value Reference Range Interpretation Comments Urine Color (test code = 5778-6) YELLOW YELLOW [facility] HospitalUrine USV9087-95-06 15:16:00* Test Item Value Reference Range Interpretation Comments Urine WBC (test code = 5821-4) NONE 0-5 [facility] HospitalUrine AZP3670-19-51 15:16:00* Test Item Value Reference Range Interpretation Comments Urine RBC (test code = 05538-4) 0-5 0-5 [facility] HospitalUrine Eedizpgi0308-25-98 15:16:00* Test Item Value Reference Range Interpretation Comments Urine Bacteria (test code = 01897-4) NONE NONE [facility] HospitalUrine Epithelial Bswkf8176-73-33 15:16:00 * Test Item Value Reference Range Interpretation Comments Urine Epithelial Cells (test code = 76239-7) RARE NONE [facility] HospitalUrine Rjhlssw3373-83-38 14:59:00* Test Item Value Reference Range Interpretation Comments Urine Clarity (test code = 44158-4) CLEAR CLEAR [facility] HospitalUrine Specific Nfuouim1049-24-59 14:59:00 * Test Item Value Reference Range Interpretation Comments Urine Specific [place] (test code = 5811-5) 1.010 1.010-1.02 5 [facility] HospitalUrine uS8937-75-41 14:59:00* Test Item Value Reference Range Interpretation Comments Urine pH (test code = 04451-8) 8 5-7 [facility] HospitalUrine Leukocyte Gbcflsuy1912-36-67 14:59:00* Test Item Value Reference Range Interpretation Comments Urine Leukocyte Esterase (test code = 20643-0) NEGATIVE NEGATIV E [facility] HospitalUrine Yytzulw2323-78-82 14:59:00* Test Item Value Reference Range Interpretation Comments Urine Nitrite (test code = 40429-6) NEGATIVE NEGATIVE [facility] HospitalUrine Zqikiky9342-40-20 14:59:00* Test Item Value Reference Range Interpretation Comments Urine Protein (test code = 09207-8) NEGATIVE NEGATIVE [facility] HospitalUrine Glucose (UA)2019-08-09 14:59:00* Test Item Value Reference Range Interpretation Comments Urine Glucose (UA) (test code = 72808-0) NEGATIVE NEGATIVE [facility] HospitalUrine Ptqnbdw8209-60-00 14:59:00* Test Item Value Reference Range Interpretation Comments Urine Ketones (test code = 93222-9) NEGATIVE NEGATIVE [facility] HospitalUrine Staecvazlkkd7375-33-63 14:59:00* Test Item Value Reference Range Interpretation Comments Urine Urobilinogen (test code = 23498-7) 0.2 0.2-1 [facility] HospitalUrine Stshhgdbc4884-72-28 14:59:00* Test Item Value Reference Range Interpretation Comments Urine Bilirubin (test code = 1977-8) NEGATIVE NEGATIVE [facility] HospitalUrine Qhwrx3758-08-86 14:59:00* Test Item Value Reference Range Interpretation Comments Urine Blood (test code = 97427-4) 1+ NEGATIVE [facility] HospitalCT ABDOMEN/PELVIS E7020-20-86 09:50:00 [facility] [address] [place] [address] Patient Name: FRANK PERRY MR #: [id number] : 1930 Age/Sex: 89/F Req #: [id number] Adm Physician: Ordered by: SUYAPA ALATORRE MD Report #: [id number] Location: [place] Room/Bed: Procedure: [id number] CT/C T ABDOMEN/PELVIS W Exam Date: 07/03/19 [...] COPY TO: SUYAPA ALATORRE MD Blood Urea Vtbuvqzl5407-67-17 08:27:00* Test Item Value Reference Range Interpretation Comments Blood Urea Nitrogen (test code = 3094-0) 27 7-26 H [facility] HospitalCreatinine2019-10-16 08:27:00* Test Item Value Reference Range Interpretation Comments Creatinine (test code = 2160-0) 1.34 0.57-1.11 H [facility] HospitalBUN/Creatinine Mbpfr1399-88-32 08:27:00* Test Item Value Reference Range Interpretation Comments BUN/Creatinine Ratio (test code = 3097-3) 20 6-25 [facility] HospitalEstimat Glomerular Filtration Rate 2019-07-03 08:27:00* Test Item Value Reference Range Interpretation Comments Estimat Glomerular Filtration Rate (test code = 599355885) 37 >60 L Ranges were taken from the National Kidney Disease Education Program and the [facility] literature.Reference ranges:60 or greater: Qmdzyf43-41 ( for 3 consecutive months): Chronic kidney disease 15 or less: Kidney failureMethodist Southlake HospitalWhite Blood Jvtye5383-83-00 16:18:00* Test Item Value Reference Range Interpretation Comments White Blood Count (test code = 6690-2) 7.46 4.8-10.8 [facility] HospitalRed Blood Abiot0836-53-63 16:18:00* Test Item Value Reference Range Interpretation Comments Red Blood Count (test code = 789-8) 3.86 3.6-5.1 [facility] HospitalHemoglobin2019-09-18 16:18:00* Test Item Value Reference Range Interpretation Comments Hemoglobin (test code = 18147-9) 11.7 12.0-16.0 L [facility] HospitalHematocrit2019-09-18 16:18:00* Test Item Value Reference Range Interpretation Comments Hematocrit (test code = 4544-3) 35.2 34.2-44.1 [facility] HospitalMean Corpuscular Emuplb7928-10-43 16:18:00* Test Item Value Reference Range Interpretation Comments Mean Corpuscular Volume (test code = 787-2) 91.2 81-99 [facility] HospitalMean Corpuscular Vylxomxsip3287-19-57 16:18:00* Test Item Value Reference Range Interpretation Comments Mean Corpuscular Hemoglobin (test code = 785-6) 30.3 28-32 [facility] HospitalMean Corpuscular Hemoglobin Concent 2019-06-05 16:18:00* Test Item Value Reference Range Interpretation Comments Mean Corpuscular Hemoglobin Concent (test code = 786-4) 33.2 31-35 [facility] HospitalRed Cell Distribution Rzaqm5514-60-65 16:18:00* Test Item Value Reference Range Interpretation Comments Red Cell Distribution Width (test code = 21254-3) 13.0 11.7 -14.4 [facility] HospitalPlatelet Brgbg7798-91-59 16:18:00* Test Item Value Reference Range Interpretation Comments Platelet Count (test code = 777-3) 214 140-360 [facility] HospitalNeutrophils (%) (Auto)2019-06-05 16:18:00 * Test Item Value Reference Range Interpretation Comments Neutrophils (%) (Auto) (test code = 11272-2) 64.8 38.7-80.0 [facility] HospitalLymphocytes (%) (Auto)2019-06-05 16:18:00 * Test Item Value Reference Range Interpretation Comments Lymphocytes (%) (Auto) (test code = 736-9) 22.1 18.0-39.1 [facility] HospitalMonocytes (%) (Auto)2019-06-05 16:18:00* Test Item Value Reference Range Interpretation Comments Monocytes (%) (Auto) (test code = 5905-5) 8.8 4.4-11.3 [facility] HospitalEosinophils (%) (Auto)2019-06-05 16:18:00 * Test Item Value Reference Range Interpretation Comments Eosinophils (%) (Auto) (test code = 713-8) 2.9 0.0-6.0 [facility] HospitalBasophils (%) (Auto)2019-06-05 16:18:00* Test Item Value Reference Range Interpretation Comments Basophils (%) (Auto) (test code = 706-2) 0.5 0.0-1.0 [facility] HospitalIM GRANULOCYTES %2019-06-05 16:18:00* Test Item Value Reference Range Interpretation Comments IM GRANULOCYTES % (test code = IM GRANULOCYTES %) 0.9 0.0- 1.0 [facility] HospitalNeutrophils # (Auto)2019-06-05 16:18:00* Test Item Value Reference Range Interpretation Comments Neutrophils # (Auto) (test code = 751-8) 4.8 2.1-6.9 [facility] HospitalLymphocytes # (Auto)2019-06-05 16:18:00* Test Item Value Reference Range Interpretation Comments Lymphocytes # (Auto) (test code = 75527-2) 1.7 1.0-3.2 [facility] HospitalMonocytes # (Auto)2019-06-05 16:18:00* Test Item Value Reference Range Interpretation Comments Monocytes # (Auto) (test code = 742-7) 0.7 0.2-0.8 [facility] HospitalEosinophils # (Auto)2019-06-05 16:18:00* Test Item Value Reference Range Interpretation Comments Eosinophils # (Auto) (test code = 711-2) 0.2 0.0-0.4 [facility] HospitalBasophils # (Auto)2019-06-05 16:18:00* Test Item Value Reference Range Interpretation Comments Basophils # (Auto) (test code = 704-7) 0.0 0.0-0.1 [facility] HospitalAbsolute Immature Granulocyte (auto 2019-06-05 16:18:00* Test Item Value Reference Range Interpretation Comments Absolute Immature Granulocyte (auto (inocente t code = Absolute Immature Granulocyte (auto) 0.07 0-0.1 [place] 19737019-04-27 12:37:00* Test Item Value Reference Range Interpretation Comments Troponin I (test code = VFI2677) 0.008 0-0.300 [place] 19737019-04-27 12:37:00* Test Item Value Reference Range Interpretation Comments Troponin I (test code = HIM8484) 0.008 0-0.300 [place] 19737019-04-27 12:37:00* Test Item Value Reference Range Interpretation Comments Troponin I (test code = HMO2769) 0.008 0-0.300 [facility] HospitalCreatine Kinase NU1242-95-72 07:01:00* Test Item Value Reference Range Interpretation Comments Creatine Kinase MB (test code = 47687-7) 1.10 0-5.0 [facility] HospitalCreatine Kinase LO0698-49-28 07:01:00* Test Item Value Reference Range Interpretation Comments Creatine Kinase MB (test code = 50856-2) 1.10 0-5.0 [facility] HospitalCreatine Kinase RN2930-81-72 07:01:00* Test Item Value Reference Range Interpretation Comments Creatine Kinase MB (test code = 89151-0) 1.10 0-5.0 [facility] HospitalCreatine Uoogmv9625-44-60 06:53:00* Test Item Value Reference Range Interpretation Comments Creatine Kinase (test code = 2157-6) 28 29-168 L [facility] HospitalCreatine Fjkegq9901-14-94 06:53:00* Test Item Value Reference Range Interpretation Comments Creatine Kinase (test code = 2157-6) 28 29-168 L [facility] HospitalCreatine Zykhsv2449-77-14 06:53:00* Test Item Value Reference Range Interpretation Comments Creatine Kinase (test code = 2157-6) 28 29-168 L [facility]lake[facility] Qyynf8343-27-85 06:34:00* Test Item Value Reference Range Interpretation Comments Sodium Level (test code = 2951-2) 133 136-145 L [facility] HospitalPotassium Kjbnx0684-82-40 06:34:00* Test Item Value Reference Range Interpretation Comments Potassium Level (test code = 2823-3) 4.5 3.5-5.1 [facility] HospitalChloride Nbpld9490-08-65 06:34:00* Test Item Value Reference Range Interpretation Comments Chloride Level (test code = 2075-0) 100 98-107 [facility] HospitalCarbon Dioxide Fvsrl7900-24-29 06:34:00* Test Item Value Reference Range Interpretation Comments Carbon Dioxide Level (test code = 2028-9) 25 22-29 [facility] HospitalAnion Wmd7790-00-53 06:34:00* Test Item Value Reference Range Interpretation Comments Anion Gap (test code = 77353-9) 12.5 8-16 [facility] HospitalBlood Urea Qgwbwuyj7398-30-63 06:34:00* Test Item Value Reference Range Interpretation Comments Blood Urea Nitrogen (test code = 3094-0) 19 7-26 [facility] HospitalCreatinine2019-04-27 06:34:00* Test Item Value Reference Range Interpretation Comments Creatinine (test code = 2160-0) 1.04 0.57-1.11 [facility] HospitalBUN/Creatinine Tpiaj1431-03-86 06:34:00* Test Item Value Reference Range Interpretation Comments BUN/Creatinine Ratio (test code = 3097-3) 18 6-25 [facility] HospitalEstimat Glomerular Filtration Rate 2019-01-12 06:34:00* Test Item Value Reference Range Interpretation Comments Estimat Glomerular Filtration Rate (test code = 535003690) 50 >60 L Ranges were taken from the National Kidney Disease Education Program and the [facility] Foundation literature.Reference ranges:60 or greater: Iiqghz43-42 ( for 3 consecutive months): Chronic kidney disease 15 or less: Kidney failureMethodist Southlake HospitalGlucose Lrkbz8788-26-35 06:34:00* Test Item Value Reference Range Interpretation Comments Glucose Level (test code = WDT9694) 86 74-118 [facility] HospitalCalcium Fcigg5582-92-20 06:34:00* Test Item Value Reference Range Interpretation Comments Calcium Level (test code = 73460-6) 8.5 8.4-10.2 [facility] HospitalTotal Pdpbnibqz2157-09-58 06:34:00* Test Item Value Reference Range Interpretation Comments Total Bilirubin (test code = 1975-2) 0.6 0.2-1.2 [facility] HospitalAspartate Amino Transf (AST/SGOT) 2019-01-12 06:34:00* Test Item Value Reference Range Interpretation Comments Aspartate Amino Transf (AST/SGOT) (test code = Aspartate Amino Transf (AST/SGOT)) 15 5-34 [facility] HospitalAlanine Aminotransferase (ALT/SGPT) 2019-01-12 06:34:00* Test Item Value Reference Range Interpretation Comments Alanine Aminotransferase (ALT/SGPT) (test code = 1742-6) 13 0-55 [facility] HospitalTotal Bbdsubp9044-31-56 06:34:00* Test Item Value Reference Range Interpretation Comments Total Protein (test code = 2885-2) 5.6 6.5-8.1 L [facility] HospitalAlbumin2019-04-27 06:34:00* Test Item Value Reference Range Interpretation Comments Albumin (test code = 1751-7) 2.9 3.5-5.0 L [facility] HospitalGlobulin2019-04-27 06:34:00* Test Item Value Reference Range Interpretation Comments Globulin (test code = 73031-6) 2.7 2.3-3.5 [facility] HospitalAlbumin/Globulin Vshhm2406-62-10 06:34:00 * Test Item Value Reference Range Interpretation Comments Albumin/Globulin Ratio (test code = 1759-0) 1.1 0.8-2.0 [facility] HospitalAlkaline Xoqrabglwyd6337-25-27 06:34:00* Test Item Value Reference Range Interpretation Comments Alkaline Phosphatase (test code = 6768-6) 53 40-150 [facility]lakeodium Ykrqo5164-38-68 06:34:00* Test Item Value Reference Range Interpretation Comments Sodium Level (test code = 2951-2) 133 136-145 L [facility] HospitalPotassium Ffryq1448-43-18 06:34:00* Test Item Value Reference Range Interpretation Comments Potassium Level (test code = 2823-3) 4.5 3.5-5.1 [facility] HospitalChloride Flixt5650-65-20 06:34:00* Test Item Value Reference Range Interpretation Comments Chloride Level (test code = 2075-0) 100 98-107 [facility] HospitalCarbon Dioxide Sjqti5566-47-71 06:34:00* Test Item Value Reference Range Interpretation Comments Carbon Dioxide Level (test code = 2028-9) 25 22-29 [facility] HospitalAnion Rqb0485-12-02 06:34:00* Test Item Value Reference Range Interpretation Comments Anion Gap (test code = 24704-6) 12.5 8-16 [facility] HospitalGlucose Hemsp5168-04-84 06:34:00* Test Item Value Reference Range Interpretation Comments Glucose Level (test code = LUH9392) 86 74-118 [facility] HospitalCalcium Hhbdi2793-58-32 06:34:00* Test Item Value Reference Range Interpretation Comments Calcium Level (test code = 51790-5) 8.5 8.4-10.2 [facility] HospitalTotal Miugquusi2557-91-07 06:34:00* Test Item Value Reference Range Interpretation Comments Total Bilirubin (test code = 1975-2) 0.6 0.2-1.2 [facility] HospitalAspartate Amino Transf (AST/SGOT) 2019-01-12 06:34:00* Test Item Value Reference Range Interpretation Comments Aspartate Amino Transf (AST/SGOT) (test code = Aspartate Amino Transf (AST/SGOT)) 15 5-34 [facility] HospitalAlanine Aminotransferase (ALT/SGPT) 2019-01-12 06:34:00* Test Item Value Reference Range Interpretation Comments Alanine Aminotransferase (ALT/SGPT) (test code = 1742-6) 13 0-55 [facility] HospitalTotal Kuiyerh5129-40-10 06:34:00* Test Item Value Reference Range Interpretation Comments Total Protein (test code = 2885-2) 5.6 6.5-8.1 L [facility] HospitalAlbumin2019-04-27 06:34:00* Test Item Value Reference Range Interpretation Comments Albumin (test code = 1751-7) 2.9 3.5-5.0 L [facility] HospitalGlobulin2019-04-27 06:34:00* Test Item Value Reference Range Interpretation Comments Globulin (test code = 76661-2) 2.7 2.3-3.5 [facility] HospitalAlbumin/Globulin Abapk8382-30-38 06:34:00 * Test Item Value Reference Range Interpretation Comments Albumin/Globulin Ratio (test code = 1759-0) 1.1 0.8-2.0 [facility] HospitalAlkaline Jdokzgrxwjk4281-08-86 06:34:00* Test Item Value Reference Range Interpretation Comments Alkaline Phosphatase (test code = 6768-6) 53 40-150 [facility] HospitalTotal Xbjqmjdoh5728-79-48 06:34:00* Test Item Value Reference Range Interpretation Comments Total Bilirubin (test code = 1975-2) 0.6 0.2-1.2 [facility] HospitalAspartate Amino Transf (AST/SGOT) 2019-01-12 06:34:00* Test Item Value Reference Range Interpretation Comments Aspartate Amino Transf (AST/SGOT) (test code = Aspartate Amino Transf (AST/SGOT)) 15 5-34 [facility] HospitalAlanine Aminotransferase (ALT/SGPT) 2019-01-12 06:34:00* Test Item Value Reference Range Interpretation Comments Alanine Aminotransferase (ALT/SGPT) (test code = 1742-6) 13 0-55 [facility] HospitalTointer[facility] Pbarvoc9154-97-23 06:34:00* Test Item Value Reference Range Interpretation Comments Total Protein (test code = 2885-2) 5.6 6.5-8.1 L [facility] HospitalAlbumin2019-04-27 06:34:00* Test Item Value Reference Range Interpretation Comments Albumin (test code = 1751-7) 2.9 3.5-5.0 L [facility] HospitalGlobulin2019-04-27 06:34:00* Test Item Value Reference Range Interpretation Comments Globulin (test code = 61071-6) 2.7 2.3-3.5 [facility] HospitalAlbumin/Globulin Grhgh1863-32-35 06:34:00 * Test Item Value Reference Range Interpretation Comments Albumin/Globulin Ratio (test code = 1759-0) 1.1 0.8-2.0 [facility] HospitalAlkaline Cnatapkyith5845-53-82 06:34:00* Test Item Value Reference Range Interpretation Comments Alkaline Phosphatase (test code = 6768-6) 53 40-150 [facility] HospitalWhite Blood Flynl1727-71-82 06:22:00* Test Item Value Reference Range Interpretation Comments White Blood Count (test code = 6690-2) 7.94 4.8-10.8 [facility] HospitalRed Blood Kfngv9212-06-63 06:22:00* Test Item Value Reference Range Interpretation Comments Red Blood Count (test code = 789-8) 4.11 3.6-5.1 [facility] HospitalHemoglobin2019-04-27 06:22:00* Test Item Value Reference Range Interpretation Comments Hemoglobin (test code = 38499-7) 12.5 12.0-16.0 [facility] HospitalHematocrit2019-04-27 06:22:00* Test Item Value Reference Range Interpretation Comments Hematocrit (test code = 4544-3) 36.8 34.2-44.1 [facility] HospitalMean Corpuscular Vabula1537-42-18 06:22:00* Test Item Value Reference Range Interpretation Comments Mean Corpuscular Volume (test code = 787-2) 89.5 81-99 [facility] HospitalMean Corpuscular Rhdromsypk7218-94-83 06:22:00* Test Item Value Reference Range Interpretation Comments Mean Corpuscular Hemoglobin (test code = 785-6) 30.4 28-32 [facility] HospitalMean Corpuscular Hemoglobin Concent 2019-01-12 06:22:00* Test Item Value Reference Range Interpretation Comments Mean Corpuscular Hemoglobin Concent (test code = 786-4) 34.0 31-35 [facility] HospitalRed Cell Distribution Hyjlp9143-67-09 06:22:00* Test Item Value Reference Range Interpretation Comments Red Cell Distribution Width (test code = 29472-1) 12.9 11.7 -14.4 [facility] HospitalPlatelet Cigyo7964-47-98 06:22:00* Test Item Value Reference Range Interpretation Comments Platelet Count (test code = 777-3) 199 140-360 [facility] HospitalNeutrophils (%) (Auto)2019-01-12 06:22:00 * Test Item Value Reference Range Interpretation Comments Neutrophils (%) (Auto) (test code = 39595-7) 48.0 38.7-80.0 [facility] HospitalLymphocytes (%) (Auto)2019-01-12 06:22:00 * Test Item Value Reference Range Interpretation Comments Lymphocytes (%) (Auto) (test code = 736-9) 30.9 18.0-39.1 [facility] HospitalMonocytes (%) (Auto)2019-01-12 06:22:00* Test Item Value Reference Range Interpretation Comments Monocytes (%) (Auto) (test code = 5905-5) 11.2 4.4-11.3 [facility] HospitalEosinophils (%) (Auto)2019-01-12 06:22:00 * Test Item Value Reference Range Interpretation Comments Eosinophils (%) (Auto) (test code = 713-8) 5.2 0.0-6.0 [facility] HospitalBasophils (%) (Auto)2019-01-12 06:22:00* Test Item Value Reference Range Interpretation Comments Basophils (%) (Auto) (test code = 706-2) 0.5 0.0-1.0 [facility] HospitalIM GRANULOCYTES %2019-01-12 06:22:00* Test Item Value Reference Range Interpretation Comments IM GRANULOCYTES % (test code = IM GRANULOCYTES %) 4.2 0.0- 1.0 H [facility] HospitalNeutrophils # (Auto)2019-01-12 06:22:00* Test Item Value Reference Range Interpretation Comments Neutrophils # (Auto) (test code = 751-8) 3.8 2.1-6.9 [facility] HospitalLymphocytes # (Auto)2019-01-12 06:22:00* Test Item Value Reference Range Interpretation Comments Lymphocytes # (Auto) (test code = 31452-8) 2.5 1.0-3.2 [facility] HospitalMonocytes # (Auto)2019-01-12 06:22:00* Test Item Value Reference Range Interpretation Comments Monocytes # (Auto) (test code = 742-7) 0.9 0.2-0.8 H [facility] HospitalEosinophils # (Auto)2019-01-12 06:22:00* Test Item Value Reference Range Interpretation Comments Eosinophils # (Auto) (test code = 711-2) 0.4 0.0-0.4 [facility] HospitalBasophils # (Auto)2019-01-12 06:22:00* Test Item Value Reference Range Interpretation Comments Basophils # (Auto) (test code = 704-7) 0.0 0.0-0.1 [facility] HospitalAbsolute Immature Granulocyte (auto 2019-01-12 06:22:00* Test Item Value Reference Range Interpretation Comments Absolute Immature Granulocyte (auto (inocente t code = Absolute Immature Granulocyte (auto) 0.33 0-0.1 H [facility] HospitalCXR 2 VIEW - QAAD1157-60-10 13:38:00 [place] [address] Patient Name: FRANK PERRY MR #: [id number] : 1930 Age/Sex: 88/F Req #: [id number] Adm Physician: CALEB ALATORRE MD Ordered by: LINDY WALKER MD Report #: [id number] [facility] [place] [address] Procedure: [id number] HOPD/CXR 2 VIEW - HOPD Exam Date: [...] GREGORY WALKER MD CHEST SINGLE (PORTABLE)2018-12-21 20:16:00 [place] [address] Patient Name: FRANK PERRY MR #: [id number] : 1930 Age/Sex: 88/F Req #: [id number] Adm Physician: Ordered by: LILIANA GARCIA MD Report #: [id number] Location: ER Room/Bed: Procedure: [id number] DX/CH EST SINGLE (PORTABLE) Exam Date: Exam [...] COPY TO: LILIANA GARCIA MD B-Type Natriuretic Omrjgsf9291-62-84 19:31:00* Test Item Value Reference Range Interpretation Comments B-Type Natriuretic Peptide (test code = 86257-8) 219.8 0-100 H [facility] HospitalB-Type Natriuretic Humrygm7359-29-97 19:31:00* Test Item Value Reference Range Interpretation Comments B-Type Natriuretic Peptide (test code = 15708-0) 219.8 0-100 H [facility] HospitalB-Type Natriuretic Dobqbug9872-24-67 19:31:00* Test Item Value Reference Range Interpretation Comments B-Type Natriuretic Peptide (test code = 73983-7) 219.8 0-100 H [facility] HospitalB-Type Natriuretic Unnbkzl4494-44-10 19:31:00* Test Item Value Reference Range Interpretation Comments B-Type Natriuretic Peptide (test code = 31151-6) 219.8 0-100 H [facility] HospitalCreatine Kinase OU1991-84-47 19:27:00* Test Item Value Reference Range Interpretation Comments Creatine Kinase MB (test code = 47179-2) 5.50 0-5.0 H [facility] HospitalTroponin [id number] 19:27:00* Test Item Value Reference Range Interpretation Comments Troponin I (test code = OTW0534) 0.015 0-0.300 [facility]odium Knagp5099-97-64 19:21:00* Test Item Value Reference Range Interpretation Comments Sodium Level (test code = 2951-2) 133 136-145 L [facility] HospitalPotassium Pejkf2444-25-25 19:21:00* Test Item Value Reference Range Interpretation Comments Potassium Level (test code = 2823-3) 4.0 3.5-5.1 [facility] HospitalChloride Zhlxi1186-57-79 19:21:00* Test Item Value Reference Range Interpretation Comments Chloride Level (test code = 2075-0) 97 98-107 L [facility] HospitalCarbon Dioxide Igfjr2452-42-46 19:21:00* Test Item Value Reference Range Interpretation Comments Carbon Dioxide Level (test code = 2028-9) 27 22-29 [facility] HospitalAnion Znk2134-80-96 19:21:00* Test Item Value Reference Range Interpretation Comments Anion Gap (test code = 40888-9) 13.0 8-16 [facility] HospitalBlood Urea Lwlshnzt1444-54-86 19:21:00* Test Item Value Reference Range Interpretation Comments Blood Urea Nitrogen (test code = 3094-0) 18 7-26 [facility] HospitalCreatinine2019-04-05 19:21:00* Test Item Value Reference Range Interpretation Comments Creatinine (test code = 2160-0) 0.96 0.57-1.11 [facility] HospitalBUN/Creatinine Andjc2565-65-53 19:21:00* Test Item Value Reference Range Interpretation Comments BUN/Creatinine Ratio (test code = 3097-3) 19 6-25 [facility] HospitalEstimat Glomerular Filtration Rate 2018-12-21 19:21:00* Test Item Value Reference Range Interpretation Comments Estimat Glomerular Filtration Rate (test code = 364135861) 55 >60 L Ranges were taken from the National Kidney Disease Education Program and the [facility] Foundation literature.Reference ranges:60 or greater: Uycqpc42-17 ( for 3 consecutive months): Chronic kidney disease 15 or less: Kidney failureMethodist Southlake HospitalGlucose Wmzjd9483-70-72 19:21:00* Test Item Value Reference Range Interpretation Comments Glucose Level (test code = IJE6445) 104 74-118 [facility] HospitalCalcium Qpypw6700-44-47 19:21:00* Test Item Value Reference Range Interpretation Comments Calcium Level (test code = 23098-6) 10.2 8.4-10.2 [facility] HospitalTotal Ulfmxodjp4925-30-47 19:21:00* Test Item Value Reference Range Interpretation Comments Total Bilirubin (test code = 1975-2) 0.7 0.2-1.2 [facility] HospitalAspartate Amino Transf (AST/SGOT) 2018-12-21 19:21:00* Test Item Value Reference Range Interpretation Comments Aspartate Amino Transf (AST/SGOT) (test code = Aspartate Amino Transf (AST/SGOT)) 26 5-34 [facility] HospitalAlanine Aminotransferase (ALT/SGPT) 2018-12-21 19:21:00* Test Item Value Reference Range Interpretation Comments Alanine Aminotransferase (ALT/SGPT) (test code = 1742-6) 16 0-55 [facility] HospitalTotal Jwdsuhz8351-56-48 19:21:00* Test Item Value Reference Range Interpretation Comments Total Protein (test code = 2885-2) 7.9 6.5-8.1 [facility] HospitalAlbumin2019-04-05 19:21:00* Test Item Value Reference Range Interpretation Comments Albumin (test code = 1751-7) 4.2 3.5-5.0 [facility] HospitalGlobulin2019-04-05 19:21:00* Test Item Value Reference Range Interpretation Comments Globulin (test code = 78725-0) 3.7 2.3-3.5 H [facility] HospitalAlbumin/Globulin Apjgr7567-27-17 19:21:00 * Test Item Value Reference Range Interpretation Comments Albumin/Globulin Ratio (test code = 1759-0) 1.1 0.8-2.0 [facility] HospitalAlkaline Apcoudaglcc5826-77-76 19:21:00* Test Item Value Reference Range Interpretation Comments Alkaline Phosphatase (test code = 6768-6) 85 40-150 [facility] HospitalCreatine Vnvjne7081-41-85 19:21:00* Test Item Value Reference Range Interpretation Comments Creatine Kinase (test code = 2157-6) 108 29-168 [facility] HospitalProthrombin Pike4126-97-18 19:20:00* Test Item Value Reference Range Interpretation Comments Prothrombin Time (test code = 5902-2) 12.4 11.9-14.5 [facility] HospitalProthromb Time International Ratio 2018-12-21 19:20:00* Test Item Value Reference Range Interpretation Comments Prothromb Time International Ratio (test code = 6301-6) 0.88 Oral Anticoagulant Therapy INR Values:1. Low Intensity Therapy 1.5 - 2.02 . Moderate Intensity Therapy 2.0 - 3.03. High Intensity Therapy(1) 2.5 - 3. 54. High Intensity Therapy(2) 3.0 - 4.05. Panic Value INR > 5.0 [facility] HospitalActivated Partial Thromboplast Time 2018-12-21 19:20:00* Test Item Value Reference Range Interpretation Comments Activated Partial Thromboplast Time (test code = 51307-1) 31.5 23.8-35.5 [facility] HospitalProthrombin Wype6112-89-79 19:20:00* Test Item Value Reference Range Interpretation Comments Prothrombin Time (test code = 5902-2) 12.4 11.9-14.5 [facility] HospitalProthromb Time International Ratio 2018-12-21 19:20:00* Test Item Value Reference Range Interpretation Comments Prothromb Time International Ratio (test code = 6301-6) 0.88 Oral Anticoagulant Therapy INR Values:1. Low Intensity Therapy 1.5 - 2.02 . Moderate Intensity Therapy 2.0 - 3.03. High Intensity Therapy(1) 2.5 - 3. 54. High Intensity Therapy(2) 3.0 - 4.05. Panic Value INR > 5.0 [facility] HospitalActivated Partial Thromboplast Time 2018-12-21 19:20:00* Test Item Value Reference Range Interpretation Comments Activated Partial Thromboplast Time (test code = 41549-9) 31.5 23.8-35.5 [facility] HospitalProthrombin Vthv3568-26-78 19:20:00* Test Item Value Reference Range Interpretation Comments Prothrombin Time (test code = 5902-2) 12.4 11.9-14.5 [facility] HospitalProthromb Time International Ratio 2018-12-21 19:20:00* Test Item Value Reference Range Interpretation Comments Prothromb Time International Ratio (test code = 6301-6) 0.88 Oral Anticoagulant Therapy INR Values:1. Low Intensity Therapy 1.5 - 2.02 . Moderate Intensity Therapy 2.0 - 3.03. High Intensity Therapy(1) 2.5 - 3. 54. High Intensity Therapy(2) 3.0 - 4.05. Panic Value INR > 5.0 [facility] HospitalActivated Partial Thromboplast Time 2018-12-21 19:20:00* Test Item Value Reference Range Interpretation Comments Activated Partial Thromboplast Time (test code = 53614-8) 31.5 23.8-35.5 [facility] HospitalProthrombin Cphy8347-41-77 19:20:00* Test Item Value Reference Range Interpretation Comments Prothrombin Time (test code = 5902-2) 12.4 11.9-14.5 [facility] HospitalProthromb Time International Ratio 2018-12-21 19:20:00* Test Item Value Reference Range Interpretation Comments Prothromb Time International Ratio (test code = 6301-6) 0.88 Oral Anticoagulant Therapy INR Values:1. Low Intensity Therapy 1.5 - 2.02 . Moderate Intensity Therapy 2.0 - 3.03. High Intensity Therapy(1) 2.5 - 3. 54. High Intensity Therapy(2) 3.0 - 4.05. Panic Value INR > 5.0 [facility] HospitalActivated Partial Thromboplast Time 2018-12-21 19:20:00* Test Item Value Reference Range Interpretation Comments Activated Partial Thromboplast Time (test code = 43736-0) 31.5 23.8-35.5 [facility] HospitalWhite Blood Hbich6072-32-13 19:18:00* Test Item Value Reference Range Interpretation Comments White Blood Count (test code = 6690-2) 8.83 4.8-10.8 [facility] HospitalRed Blood Jmwgi5836-15-99 19:18:00* Test Item Value Reference Range Interpretation Comments Red Blood Count (test code = 789-8) 4.76 3.6-5.1 [facility] HospitalHemoglobin2019-04-05 19:18:00* Test Item Value Reference Range Interpretation Comments Hemoglobin (test code = 45871-0) 14.4 12.0-16.0 [facility] HospitalHematocrit2019-04-05 19:18:00* Test Item Value Reference Range Interpretation Comments Hematocrit (test code = 4544-3) 42.7 34.2-44.1 [facility] HospitalMean Corpuscular Bkkrps5013-84-93 19:18:00* Test Item Value Reference Range Interpretation Comments Mean Corpuscular Volume (test code = 787-2) 89.7 81-99 [facility] HospitalMean Corpuscular Wxxfiumxuc5159-24-29 19:18:00* Test Item Value Reference Range Interpretation Comments Mean Corpuscular Hemoglobin (test code = 785-6) 30.3 28-32 [facility] HospitalMean Corpuscular Hemoglobin Concent 2018-12-21 19:18:00* Test Item Value Reference Range Interpretation Comments Mean Corpuscular Hemoglobin Concent (test code = 786-4) 33.7 31-35 [facility] HospitalRed Cell Distribution Znewk6462-22-52 19:18:00* Test Item Value Reference Range Interpretation Comments Red Cell Distribution Width (test code = 66865-2) 12.1 11.7 -14.4 [facility] HospitalPlatelet Oucko6431-72-11 19:18:00* Test Item Value Reference Range Interpretation Comments Platelet Count (test code = 777-3) 239 140-360 [facility] HospitalNeutrophils (%) (Auto)2018-12-21 19:18:00 * Test Item Value Reference Range Interpretation Comments Neutrophils (%) (Auto) (test code = 33044-7) 72.8 38.7-80.0 [facility] HospitalLymphocytes (%) (Auto)2018-12-21 19:18:00 * Test Item Value Reference Range Interpretation Comments Lymphocytes (%) (Auto) (test code = 736-9) 17.0 18.0-39.1 L [facility] HospitalMonocytes (%) (Auto)2018-12-21 19:18:00* Test Item Value Reference Range Interpretation Comments Monocytes (%) (Auto) (test code = 5905-5) 6.7 4.4-11.3 [facility] HospitalEosinophils (%) (Auto)2018-12-21 19:18:00 * Test Item Value Reference Range Interpretation Comments Eosinophils (%) (Auto) (test code = 713-8) 2.2 0.0-6.0 [facility] HospitalBasophils (%) (Auto)2018-12-21 19:18:00* Test Item Value Reference Range Interpretation Comments Basophils (%) (Auto) (test code = 706-2) 0.5 0.0-1.0 [facility] HospitalIM GRANULOCYTES %2018-12-21 19:18:00* Test Item Value Reference Range Interpretation Comments IM GRANULOCYTES % (test code = IM GRANULOCYTES %) 0.8 0.0- 1.0 [facility] HospitalNeutrophils # (Auto)2018-12-21 19:18:00* Test Item Value Reference Range Interpretation Comments Neutrophils # (Auto) (test code = 751-8) 6.4 2.1-6.9 [facility] HospitalLymphocytes # (Auto)2018-12-21 19:18:00* Test Item Value Reference Range Interpretation Comments Lymphocytes # (Auto) (test code = 20577-1) 1.5 1.0-3.2 [facility] HospitalMonocytes # (Auto)2018-12-21 19:18:00* Test Item Value Reference Range Interpretation Comments Monocytes # (Auto) (test code = 742-7) 0.6 0.2-0.8 [facility] HospitalEosinophils # (Auto)2018-12-21 19:18:00* Test Item Value Reference Range Interpretation Comments Eosinophils # (Auto) (test code = 711-2) 0.2 0.0-0.4 [facility] HospitalBasophils # (Auto)2018-12-21 19:18:00* Test Item Value Reference Range Interpretation Comments Basophils # (Auto) (test code = 704-7) 0.0 0.0-0.1 [facility] HospitalAbsolute Immature Granulocyte (auto 2018-12-21 19:18:00* Test Item Value Reference Range Interpretation Comments Absolute Immature Granulocyte (auto (inocente t code = Absolute Immature Granulocyte (auto) 0.07 0-0.1 [facility] HospitalUrine Mljgi0977-98-00 18:43:00* Test Item Value Reference Range Interpretation Comments Urine Color (test code = 5778-6) YELLOW YELLOW [facility] HospitalUrine Kkmisvy4085-22-51 18:43:00* Test Item Value Reference Range Interpretation Comments Urine Clarity (test code = 07196-5) CLEAR CLEAR [facility] HospitalUrine Specific Rnevmom8576-00-49 18:43:00 * Test Item Value Reference Range Interpretation Comments Urine Specific [place] (test code = 5811-5) 1.015 1.010-1.02 5 [facility] HospitalUrine aZ5966-39-65 18:43:00* Test Item Value Reference Range Interpretation Comments Urine pH (test code = 16495-2) 8 5-7 H [facility] HospitalUrine Leukocyte Wjfkqsvu9853-83-09 18:43:00* Test Item Value Reference Range Interpretation Comments Urine Leukocyte Esterase (test code = 5799-2) TRACE NEGATIVE H [facility] HospitalUrine Yqexwip7861-48-40 18:43:00* Test Item Value Reference Range Interpretation Comments Urine Nitrite (test code = 98055-9) NEGATIVE NEGATIVE [facility] HospitalUrine Zpahrpl8628-52-11 18:43:00* Test Item Value Reference Range Interpretation Comments Urine Protein (test code = 5804-0) NEGATIVE NEGATIVE [facility] HospitalUrine Glucose (UA)2018-12-21 18:43:00* Test Item Value Reference Range Interpretation Comments Urine Glucose (UA) (test code = 2349-9) NEGATIVE NEGATIVE [facility] HospitalUrine Wsbbuye5864-27-74 18:43:00* Test Item Value Reference Range Interpretation Comments Urine Ketones (test code = 89784-5) NEGATIVE NEGATIVE [facility] HospitalUrine Iazqrrxnxevy2010-17-63 18:43:00* Test Item Value Reference Range Interpretation Comments Urine Urobilinogen (test code = 48538-8) 0.2 0.2-1 [facility] Fpbzyokkb6085-60-90 18:43:00* Test Item Value Reference Range Interpretation Comments Urine Bilirubin (test code = 1978-6) NEGATIVE NEGATIVE [facility] HospitalUrine Nfzws0728-69-90 18:43:00* Test Item Value Reference Range Interpretation Comments Urine Blood (test code = 58873-8) 2+ NEGATIVE H [facility] HospitalUrine SRS1166-13-61 18:43:00* Test Item Value Reference Range Interpretation Comments Urine WBC (test code = 5821-4) 6-10 0-5 H [facility] HospitalUrine CQC8873-18-79 18:43:00* Test Item Value Reference Range Interpretation Comments Urine RBC (test code = 52334-9) 6-10 0-5 H [facility] HospitalUrine Hwdyczpj0744-16-08 18:43:00* Test Item Value Reference Range Interpretation Comments Urine Bacteria (test code = 11082-7) MANY NONE H [facility] HospitalUrine Epithelial Kvomq3760-64-35 18:43:00 * Test Item Value Reference Range Interpretation Comments Urine Epithelial Cells (test code = 67635-1) FEW NONE [facility] HospitalUrine Hxmmt9521-74-67 18:43:00* Test Item Value Reference Range Interpretation Comments Urine Color (test code = 5778-6) YELLOW YELLOW [facility] HospitalUrine Aolzjlp5777-22-27 18:43:00* Test Item Value Reference Range Interpretation Comments Urine Clarity (test code = 84315-3) CLEAR CLEAR [facility] Specific Npzyysa1406-22-14 18:43:00 * Test Item Value Reference Range Interpretation Comments Urine Specific [place] (test code = 5811-5) 1.015 1.010-1.02 5 [facility] HospitalUrine xE8163-72-94 18:43:00* Test Item Value Reference Range Interpretation Comments Urine pH (test code = 64555-8) 8 5-7 H [facility] Leukocyte Tddpzhzk1599-55-32 18:43:00* Test Item Value Reference Range Interpretation Comments Urine Leukocyte Esterase (test code = 5799-2) TRACE NEGATIVE H [facility] Apwfrcq9623-78-45 18:43:00* Test Item Value Reference Range Interpretation Comments Urine Nitrite (test code = 30970-1) NEGATIVE NEGATIVE [facility] Vbjenah5226-39-59 18:43:00* Test Item Value Reference Range Interpretation Comments Urine Protein (test code = 5804-0) NEGATIVE NEGATIVE [facility] Glucose (UA)2018-12-21 18:43:00* Test Item Value Reference Range Interpretation Comments Urine Glucose (UA) (test code = 2349-9) NEGATIVE NEGATIVE [facility] HospitalUrine Xjrzlml7962-07-41 18:43:00* Test Item Value Reference Range Interpretation Comments Urine Ketones (test code = 65282-5) NEGATIVE NEGATIVE [facility] Pgqcirtwktff5088-35-21 18:43:00* Test Item Value Reference Range Interpretation Comments Urine Urobilinogen (test code = 62396-4) 0.2 0.2-1 [facility] HospitalUrine Lrykgroca3912-04-98 18:43:00* Test Item Value Reference Range Interpretation Comments Urine Bilirubin (test code = 1978-6) NEGATIVE NEGATIVE [facility] HospitalUrine Etxdj4351-97-73 18:43:00* Test Item Value Reference Range Interpretation Comments Urine Blood (test code = 80779-2) 2+ NEGATIVE H [facility] HospitalUrine EFP9728-58-10 18:43:00* Test Item Value Reference Range Interpretation Comments Urine WBC (test code = 5821-4) 6-10 0-5 H [facility] HospitalUrine GHA8045-98-43 18:43:00* Test Item Value Reference Range Interpretation Comments Urine RBC (test code = 18440-8) 6-10 0-5 H [facility] HospitalUrine Xqlvuwjs8646-85-26 18:43:00* Test Item Value Reference Range Interpretation Comments Urine Bacteria (test code = 51124-1) MANY NONE H [facility] HospitalUrine Epithelial Jkrdg9113-07-34 18:43:00 * Test Item Value Reference Range Interpretation Comments Urine Epithelial Cells (test code = 78397-8) FEW NONE [facility] HospitalCreatine Kinase EE1314-04-07 04:59:00* Test Item Value Reference Range Interpretation Comments Creatine Kinase MB (test code = 22898-4) 4.70 0-5.0 [facility] HospitalTroponin D1032-30-94 04:59:00* Test Item Value Reference Range Interpretation Comments Troponin I (test code = EQY3259) 0.005 0-0.300 [facility] HospitalCreatine Jpwgdn1940-33-85 04:55:00* Test Item Value Reference Range Interpretation Comments Creatine Kinase (test code = 2157-6) 103 29-168 [facility]lake[facility] Hxluv9261-42-89 01:44:00* Test Item Value Reference Range Interpretation Comments Sodium Level (test code = 2951-2) 135 136-145 L [facility] HospitalPotassium Hvour4520-21-37 01:44:00* Test Item Value Reference Range Interpretation Comments Potassium Level (test code = 2823-3) 3.9 3.5-5.1 [facility] HospitalChloride Wdcid1062-54-02 01:44:00* Test Item Value Reference Range Interpretation Comments Chloride Level (test code = 2075-0) 101 98-107 [facility] HospitalAnion Uzv8014-56-48 01:39:00* Test Item Value Reference Range Interpretation Comments Anion Gap (test code = 67563-9) 12.9 8-16 [facility] HospitalMagnesium Ruajg7094-31-92 01:39:00* Test Item Value Reference Range Interpretation Comments Magnesium Level (test code = 96498-4) 2.0 1.3-2.1 [facility] HospitalCarbon Dioxide Anqcr8010-25-38 01:34:00* Test Item Value Reference Range Interpretation Comments Carbon Dioxide Level (test code = 2028-9) 25 22-29 [facility] HospitalBlood Urea Yjwlxbuc7448-71-22 01:34:00* Test Item Value Reference Range Interpretation Comments Blood Urea Nitrogen (test code = 3094-0) 17 7-26 [facility] HospitalCreatinine2018-05-13 01:34:00* Test Item Value Reference Range Interpretation Comments Creatinine (test code = 2160-0) 0.89 0.57-1.11 [facility] HospitalBUN/Creatinine Jmzmr7260-05-30 01:34:00* Test Item Value Reference Range Interpretation Comments BUN/Creatinine Ratio (test code = 3097-3) 19 6-25 [facility] HospitalEstimat Glomerular Filtration Rate 2018-01-28 01:34:00* Test Item Value Reference Range Interpretation Comments Estimat Glomerular Filtration Rate (test code = 07015-8) 60 >60 Ranges were taken from the National Kidney Disease Education Program and the [facility] Foundation literature.Reference ranges:60 or greater: Djgjan74-98 ( for 3 consecutive months): Chronic kidney disease 15 or less: Kidney failureMethodist Southlake HospitalGlucose Tvnsp3454-15-16 01:34:00* Test Item Value Reference Range Interpretation Comments Glucose Level (test code = YHT0185) 106 74-118 [facility] HospitalCalcium Ujcgd3574-70-90 01:34:00* Test Item Value Reference Range Interpretation Comments Calcium Level (test code = 71579-4) 9.7 8.4-10.2 [facility] HospitalTotal Qoobddows5483-01-46 01:34:00* Test Item Value Reference Range Interpretation Comments Total Bilirubin (test code = 1975-2) 0.4 0.2-1.2 [facility] HospitalAspartate Amino Transf (AST/SGOT) 2018-01-28 01:34:00* Test Item Value Reference Range Interpretation Comments Aspartate Amino Transf (AST/SGOT) (test code = Aspartate Amino Transf (AST/SGOT)) 20 5-34 [facility] HospitalAlanine Aminotransferase (ALT/SGPT) 2018-01-28 01:34:00* Test Item Value Reference Range Interpretation Comments Alanine Aminotransferase (ALT/SGPT) (test code = 1742-6) 14 0-55 [facility] Mlgppeh3961-59-64 01:34:00* Test Item Value Reference Range Interpretation Comments Total Protein (test code = 2885-2) 7.0 6.5-8.1 [facility] HospitalAlbumin2018-05-13 01:34:00* Test Item Value Reference Range Interpretation Comments Albumin (test code = 1751-7) 3.6 3.5-5.0 [facility] HospitalGlobulin2018-05-13 01:34:00* Test Item Value Reference Range Interpretation Comments Globulin (test code = 89999-1) 3.4 2.3-3.5 [facility] HospitalAlbumin/Globulin Uluen4294-04-70 01:34:00 * Test Item Value Reference Range Interpretation Comments Albumin/Globulin Ratio (test code = 1759-0) 1.1 0.8-2.0 [facility] HospitalAlkaline Xlyvwvfjrzj4386-49-76 01:34:00* Test Item Value Reference Range Interpretation Comments Alkaline Phosphatase (test code = 6768-6) 88 40-150 [facility] HospitalActivated Partial Thromboplast Time 2018-01-28 01:21:00* Test Item Value Reference Range Interpretation Comments Activated Partial Thromboplast Time (test code = 20536-7) 29.7 23.8-35.5 [facility] HospitalUrine FCI7999-29-73 01:20:00* Test Item Value Reference Range Interpretation Comments Urine WBC (test code = 5821-4) 0-5 0-5 [facility] HospitalUrine RXH1422-30-15 01:20:00* Test Item Value Reference Range Interpretation Comments Urine RBC (test code = 03554-2) 6-10 0-5 H [facility] HospitalUrine Izrllpca9818-17-88 01:20:00* Test Item Value Reference Range Interpretation Comments Urine Bacteria (test code = 99321-2) NONE NONE [facility] HospitalUrine Epithelial Mrcip3812-67-40 01:20:00 * Test Item Value Reference Range Interpretation Comments Urine Epithelial Cells (test code = 61762-1) NONE NONE [facility] HospitalUrine Ewkdx6252-33-64 01:17:00* Test Item Value Reference Range Interpretation Comments Urine Color (test code = 5778-6) YELLOW YELLOW [facility] HospitalUrine Ibyycrj4899-62-74 01:17:00* Test Item Value Reference Range Interpretation Comments Urine Clarity (test code = 55155-8) CLEAR CLEAR [facility] HospitalUrine Specific Lswhgsa7580-12-39 01:17:00 * Test Item Value Reference Range Interpretation Comments Urine Specific [place] (test code = 5811-5) 1.015 1.010-1.02 5 [facility] HospitalUrine nK5793-21-59 01:17:00* Test Item Value Reference Range Interpretation Comments Urine pH (test code = 38531-1) 7 5-7 [facility] HospitalUrine Leukocyte Jxvviwnf7911-45-10 01:17:00* Test Item Value Reference Range Interpretation Comments Urine Leukocyte Esterase (test code = 5799-2) NEGATIVE NEGATIVE [facility] HospitalUrine Ndpgukf3623-75-95 01:17:00* Test Item Value Reference Range Interpretation Comments Urine Nitrite (test code = 99919-5) NEGATIVE NEGATIVE [facility] HospitalUrine Samvkvn0741-84-04 01:17:00* Test Item Value Reference Range Interpretation Comments Urine Protein (test code = 5804-0) NEGATIVE NEGATIVE [facility] HospitalUrine Glucose (UA)2018-01-28 01:17:00* Test Item Value Reference Range Interpretation Comments Urine Glucose (UA) (test code = 2349-9) NEGATIVE NEGATIVE [facility] HospitalUrine Dbhdyfk6469-54-19 01:17:00* Test Item Value Reference Range Interpretation Comments Urine Ketones (test code = 19571-7) NEGATIVE NEGATIVE [facility] HospitalUrine Apcehznvgbvc7816-20-10 01:17:00* Test Item Value Reference Range Interpretation Comments Urine Urobilinogen (test code = 17988-5) 0.2 0.2-1 [facility] HospitalUrine Lhsitbpgx5073-61-68 01:17:00* Test Item Value Reference Range Interpretation Comments Urine Bilirubin (test code = 1978-6) NEGATIVE NEGATIVE [facility] HospitalUrine Ojivk0340-65-36 01:17:00* Test Item Value Reference Range Interpretation Comments Urine Blood (test code = 56021-9) TRACE NEGATIVE H [facility] HospitalProthrombin Xhda9978-15-28 01:16:00* Test Item Value Reference Range Interpretation Comments Prothrombin Time (test code = 5902-2) 12.6 11.9-14.5 [facility] HospitalProthromb Time International Ratio 2018-01-28 01:16:00* Test Item Value Reference Range Interpretation Comments Prothromb Time International Ratio (test code = 6301-6) 1.02 Oral Anticoagulant Therapy INR Values:1. Low Intensity Therapy 1.5 - 2.02 . Moderate Intensity Therapy 2.0 - 3.03. High Intensity Therapy(1) 2.5 - 3. 54. High Intensity Therapy(2) 3.0 - 4.05. Panic Value INR > 5.0 [facility] HospitalWhite Blood Hhjnq1301-65-94 01:13:00* Test Item Value Reference Range Interpretation Comments White Blood Count (test code = 6690-2) 6.94 4.8-10.8 [facility] HospitalRed Blood Ogkfc9970-91-32 01:13:00* Test Item Value Reference Range Interpretation Comments Red Blood Count (test code = 789-8) 4.21 3.6-5.1 [facility] HospitalHemoglobin2018-05-13 01:13:00* Test Item Value Reference Range Interpretation Comments Hemoglobin (test code = 21624-2) 12.5 12.0-16.0 [facility] HospitalHematocrit2018-05-13 01:13:00* Test Item Value Reference Range Interpretation Comments Hematocrit (test code = 4544-3) 37.3 34.2-44.1 [facility] HospitalMean Corpuscular Czuhkl8421-84-01 01:13:00* Test Item Value Reference Range Interpretation Comments Mean Corpuscular Volume (test code = 787-2) 88.6 81-99 [facility] HospitalMean Corpuscular Ngedjccjwm0256-40-74 01:13:00* Test Item Value Reference Range Interpretation Comments Mean Corpuscular Hemoglobin (test code = 785-6) 29.7 28-32 [facility] HospitalMean Corpuscular Hemoglobin Concent 2018-01-28 01:13:00* Test Item Value Reference Range Interpretation Comments Mean Corpuscular Hemoglobin Concent (test code = 786-4) 33.5 31-35 [facility] HospitalRed Cell Distribution Jsxqm6356-38-27 01:13:00* Test Item Value Reference Range Interpretation Comments Red Cell Distribution Width (test code = 70571-5) 13.2 11.7 -14.4 [facility] HospitalPlatelet Bvkyi8883-05-41 01:13:00* Test Item Value Reference Range Interpretation Comments Platelet Count (test code = 777-3) 240 140-360 [facility] HospitalNeutrophils (%) (Auto)2018-01-28 01:13:00 * Test Item Value Reference Range Interpretation Comments Neutrophils (%) (Auto) (test code = 08371-4) 63.6 38.7-80.0 [facility] HospitalLymphocytes (%) (Auto)2018-01-28 01:13:00 * Test Item Value Reference Range Interpretation Comments Lymphocytes (%) (Auto) (test code = 736-9) 21.0 18.0-39.1 [facility] HospitalMonocytes (%) (Auto)2018-01-28 01:13:00* Test Item Value Reference Range Interpretation Comments Monocytes (%) (Auto) (test code = 5905-5) 10.4 4.4-11.3 [facility] HospitalEosinophils (%) (Auto)2018-01-28 01:13:00 * Test Item Value Reference Range Interpretation Comments Eosinophils (%) (Auto) (test code = 713-8) 4.0 0.0-6.0 [facility] HospitalBasophils (%) (Auto)2018-01-28 01:13:00* Test Item Value Reference Range Interpretation Comments Basophils (%) (Auto) (test code = 706-2) 0.4 0.0-1.0 [facility] HospitalIM GRANULOCYTES %2018-01-28 01:13:00* Test Item Value Reference Range Interpretation Comments IM GRANULOCYTES % (test code = IM GRANULOCYTES %) 0.6 0.0- 1.0 [facility] HospitalNeutrophils # (Auto)2018-01-28 01:13:00* Test Item Value Reference Range Interpretation Comments Neutrophils # (Auto) (test code = 751-8) 4.4 2.1-6.9 [facility] HospitalLymphocytes # (Auto)2018-01-28 01:13:00* Test Item Value Reference Range Interpretation Comments Lymphocytes # (Auto) (test code = 27579-3) 1.5 1.0-3.2 [facility] HospitalMonocytes # (Auto)2018-01-28 01:13:00* Test Item Value Reference Range Interpretation Comments Monocytes # (Auto) (test code = 742-7) 0.7 0.2-0.8 [facility] HospitalEosinophils # (Auto)2018-01-28 01:13:00* Test Item Value Reference Range Interpretation Comments Eosinophils # (Auto) (test code = 711-2) 0.3 0.0-0.4 [facility] HospitalBasophils # (Auto)2018-01-28 01:13:00* Test Item Value Reference Range Interpretation Comments Basophils # (Auto) (test code = 704-7) 0.0 0.0-0.1 [facility] HospitalAbsolute Immature Granulocyte (auto 2018-01-28 01:13:00* Test Item Value Reference Range Interpretation Comments Absolute Immature Granulocyte (auto (inocente t code = Absolute Immature Granulocyte (auto) 0.04 0-0.1 [facility]lakeodium Xwbut0024-24-74 09:37:00* Test Item Value Reference Range Interpretation Comments Sodium Level (test code = 2951-2) 136 136-145 [facility] HospitalPotassium Kmxqg6886-96-13 09:37:00* Test Item Value Reference Range Interpretation Comments Potassium Level (test code = 2823-3) 4.2 3.5-5.1 [facility] HospitalChloride Joqem6659-21-12 09:37:00* Test Item Value Reference Range Interpretation Comments Chloride Level (test code = 2075-0) 97 98-107 L [facility] HospitalCarbon Dioxide Bwhtn9738-41-62 09:37:00* Test Item Value Reference Range Interpretation Comments Carbon Dioxide Level (test code = 2028-9) 27 22-29 [facility] HospitalAnion Kql0317-95-67 09:37:00* Test Item Value Reference Range Interpretation Comments Anion Gap (test code = 95615-8) 16.2 8-16 H [facility] HospitalBlood Urea Wqzcacbr5171-69-81 09:37:00* Test Item Value Reference Range Interpretation Comments Blood Urea Nitrogen (test code = 3094-0) 17 7-26 [facility] HospitalCreatinine2018-04-25 09:37:00* Test Item Value Reference Range Interpretation Comments Creatinine (test code = 2160-0) 1.04 0.57-1.11 [facility] HospitalBUN/Creatinine Hojqk9311-41-28 09:37:00* Test Item Value Reference Range Interpretation Comments BUN/Creatinine Ratio (test code = 3097-3) 16 6-25 [facility] HospitalEstimat Glomerular Filtration Rate 2018-01-10 09:37:00* Test Item Value Reference Range Interpretation Comments Estimat Glomerular Filtration Rate (test code = 18655-3) 50 >60 L Ranges were taken from the National Kidney Disease Education Program and the [place] literature.Reference ranges:60 or greater: Sruiey76-40 ( for 3 consecutive months): Chronic kidney disease 15 or less: Kidney failureMethodist Southlake HospitalGlucose Argzb5522-57-96 09:37:00* Test Item Value Reference Range Interpretation Comments Glucose Level (test code = DGP6943) 165 74-118 H [facility] HospitalCalcium Pgsdk4177-89-77 09:37:00* Test Item Value Reference Range Interpretation Comments Calcium Level (test code = 23825-8) 9.6 8.4-10.2 [facility] HospitalUrine Zpxxyblwgh8728-88-57 06:16:00* Test Item Value Reference Range Interpretation Comments Urine Osmolality (test code = 2695-5) 217 . 24 hr : 300 - 900 Random: 50 - 1400 After 12hr fluid restriction: >850Performed at: [facility] [place] [id number] Director: EARNEST Amaral MD, Phone: [phone] Health Harris [facility] Hospital Southlakeerum Osmolality 2018-01-09 06:16:00* Test Item Value Reference Range Interpretation Comments Serum Osmolality (test code = 2692-2) 243 280-301 L Verified by repeat analysisPerformed at: [email or web address] [address] [id number] Director: EARNSET Amaral MD, Phone: [phone] [facility] HospitalUrine Fncjcmbnbm5937-09-94 06:16:00* Test Item Value Reference Range Interpretation Comments Urine Osmolality (test code = 2695-5) 217 . 24 hr : 300 - 900 Random: 50 - 1400 After 12hr fluid restriction: >850Performed at: [email or web address] [address], [place] [id number] Director: EARNEST Amaral MD, Phone: [phone] Health Harris Methodist Hospital Southlakeerum Osmolality 2018-01-09 06:16:00* Test Item Value Reference Range Interpretation Comments Serum Osmolality (test code = 2692-2) 243 280-301 L Verified by repeat analysisPerformed at: [facility] [facility] [address], [place], [place] [id number] Director: EARNEST Amaral MD, Phone: [phone] [facility] HospitalMagnesium Rlhvi3571-82-08 06:59:00* Test Item Value Reference Range Interpretation Comments Magnesium Level (test code = 70705-8) 2.3 1.3-2.1 H [facility] HospitalWhite Blood Kuajm6221-98-10 06:17:00* Test Item Value Reference Range Interpretation Comments White Blood Count (test code = 6690-2) 7.81 4.8-10.8 [facility] HospitalRed Blood Lrwkx7533-48-71 06:17:00* Test Item Value Reference Range Interpretation Comments Red Blood Count (test code = 789-8) 3.61 3.6-5.1 [facility] HospitalHemoglobin2018-04-23 06:17:00* Test Item Value Reference Range Interpretation Comments Hemoglobin (test code = 99359-9) 10.6 12.0-16.0 L [facility] HospitalHematocrit2018-04-23 06:17:00* Test Item Value Reference Range Interpretation Comments Hematocrit (test code = 4544-3) 31.5 34.2-44.1 L [facility] HospitalMean Corpuscular Yiadwf8322-60-85 06:17:00* Test Item Value Reference Range Interpretation Comments Mean Corpuscular Volume (test code = 787-2) 87.3 81-99 [facility] HospitalMean Corpuscular Sgqvrzssfw0385-30-95 06:17:00* Test Item Value Reference Range Interpretation Comments Mean Corpuscular Hemoglobin (test code = 785-6) 29.4 28-32 [facility] HospitalMean Corpuscular Hemoglobin Concent 2018-01-08 06:17:00* Test Item Value Reference Range Interpretation Comments Mean Corpuscular Hemoglobin Concent (test code = 786-4) 33.7 31-35 [facility] HospitalRed Cell Distribution Zlxum2587-23-19 06:17:00* Test Item Value Reference Range Interpretation Comments Red Cell Distribution Width (test code = 84549-3) 13.2 11.7 -14.4 [facility] HospitalPlatelet Uqnmi2726-07-59 06:17:00* Test Item Value Reference Range Interpretation Comments Platelet Count (test code = 777-3) 231 140-360 [facility] HospitalNeutrophils (%) (Auto)2018-01-08 06:17:00 * Test Item Value Reference Range Interpretation Comments Neutrophils (%) (Auto) (test code = 55369-5) 61.8 38.7-80.0 [facility] HospitalLymphocytes (%) (Auto)2018-01-08 06:17:00 * Test Item Value Reference Range Interpretation Comments Lymphocytes (%) (Auto) (test code = 736-9) 17.4 18.0-39.1 L [facility] HospitalMonocytes (%) (Auto)2018-01-08 06:17:00* Test Item Value Reference Range Interpretation Comments Monocytes (%) (Auto) (test code = 5905-5) 12.5 4.4-11.3 H [facility] HospitalEosinophils (%) (Auto)2018-01-08 06:17:00 * Test Item Value Reference Range Interpretation Comments Eosinophils (%) (Auto) (test code = 713-8) 6.9 0.0-6.0 H [facility] HospitalBasophils (%) (Auto)2018-01-08 06:17:00* Test Item Value Reference Range Interpretation Comments Basophils (%) (Auto) (test code = 706-2) 0.6 0.0-1.0 [facility] HospitalIM GRANULOCYTES %2018-01-08 06:17:00* Test Item Value Reference Range Interpretation Comments IM GRANULOCYTES % (test code = IM GRANULOCYTES %) 0.8 0.0- 1.0 [facility] HospitalNeutrophils # (Auto)2018-01-08 06:17:00* Test Item Value Reference Range Interpretation Comments Neutrophils # (Auto) (test code = 751-8) 4.8 2.1-6.9 [facility] HospitalLymphocytes # (Auto)2018-01-08 06:17:00* Test Item Value Reference Range Interpretation Comments Lymphocytes # (Auto) (test code = 50749-1) 1.4 1.0-3.2 [facility] HospitalMonocytes # (Auto)2018-01-08 06:17:00* Test Item Value Reference Range Interpretation Comments Monocytes # (Auto) (test code = 742-7) 1.0 0.2-0.8 H [facility] HospitalEosinophils # (Auto)2018-01-08 06:17:00* Test Item Value Reference Range Interpretation Comments Eosinophils # (Auto) (test code = 711-2) 0.5 0.0-0.4 H [facility] HospitalBasophils # (Auto)2018-01-08 06:17:00* Test Item Value Reference Range Interpretation Comments Basophils # (Auto) (test code = 704-7) 0.1 0.0-0.1 [facility] HospitalAbsolute Immature Granulocyte (auto 2018-01-08 06:17:00* Test Item Value Reference Range Interpretation Comments Absolute Immature Granulocyte (auto (inocente t code = Absolute Immature Granulocyte (auto) 0.06 0-0.1 [facility] HospitalUrine Chloride mmol/Zwy8394-98-46 06:13:00* Test Item Value Reference Range Interpretation Comments Urine Chloride mmol/Day (test code = 78039-1) Comment 110-250 No total volume submitted. Unable to calculate 24 hourresult.Performed at: [facility] [id number] Director: Drew alfaro MD, Phone: [phone] Southlake HospitalUrine Chloride mmol/Yrh3867-33-15 06:13:00* Test Item Value Reference Range Interpretation Comments Urine Chloride mmol/Day (test code = 89980-0) Comment 110-250 No total volume submitted. Unable to calculate 24 hourresult.Performed at: [facility] [address] [place], [place] [id number] Director: Drew alfaro MD, Phone: [phone] Southlake HospitalUrine Chloride 2018-01-07 12:27:00* Test Item Value Reference Range Interpretation Comments Urine Chloride (test code = 44344-2) 53 [facility] HospitalUrine Tlidbskz2882-48-82 12:27:00* Test Item Value Reference Range Interpretation Comments Urine Chloride (test code = 41955-4) 53 [facility] HospitalTotal Jeauyavac1584-61-71 05:31:00* Test Item Value Reference Range Interpretation Comments Total Bilirubin (test code = 1975-2) 0.4 0.2-1.2 [facility] HospitalAspartate Amino Transf (AST/SGOT) 2018-01-07 05:31:00* Test Item Value Reference Range Interpretation Comments Aspartate Amino Transf (AST/SGOT) (test code = Aspartate Amino Transf (AST/SGOT)) 23 5-34 [facility] HospitalAlanine Aminotransferase (ALT/SGPT) 2018-01-07 05:31:00* Test Item Value Reference Range Interpretation Comments Alanine Aminotransferase (ALT/SGPT) (test code = 1742-6) 9 0-55 [facility] HospitalTotal Jtxdtul9767-57-35 05:31:00* Test Item Value Reference Range Interpretation Comments Total Protein (test code = 2885-2) 5.1 6.5-8.1 L [facility] HospitalAlbumin2018-04-22 05:31:00* Test Item Value Reference Range Interpretation Comments Albumin (test code = 1751-7) 2.6 3.5-5.0 L [facility] HospitalGlobulin2018-04-22 05:31:00* Test Item Value Reference Range Interpretation Comments Globulin (test code = 84084-5) 2.5 2.3-3.5 [facility] HospitalAlbumin/Globulin Doluj6893-83-86 05:31:00 * Test Item Value Reference Range Interpretation Comments Albumin/Globulin Ratio (test code = 1759-0) 1.0 0.8-2.0 [facility] HospitalAlkaline Edxilcciqpk1103-95-00 05:31:00* Test Item Value Reference Range Interpretation Comments Alkaline Phosphatase (test code = 6768-6) 58 40-150 [facility] HospitalUrine CAJ6875-40-74 23:48:00* Test Item Value Reference Range Interpretation Comments Urine WBC (test code = 5821-4) 0-5 0-5 [facility] HospitalUrine YMO7279-42-94 23:48:00* Test Item Value Reference Range Interpretation Comments Urine RBC (test code = 21880-4) 6-10 0-5 H [facility] HospitalUrine Ebqravab8906-27-50 23:48:00* Test Item Value Reference Range Interpretation Comments Urine Bacteria (test code = 34906-7) NONE NONE [facility] HospitalUrine Epithelial Ceoot4826-64-20 23:48:00 * Test Item Value Reference Range Interpretation Comments Urine Epithelial Cells (test code = 44008-7) RARE NONE [facility] HospitalUrine Gvbob9596-87-76 23:37:00* Test Item Value Reference Range Interpretation Comments Urine Color (test code = 5778-6) YELLOW YELLOW [facility] HospitalUrine Yyfakov8350-78-02 23:37:00* Test Item Value Reference Range Interpretation Comments Urine Clarity (test code = 33723-4) CLEAR CLEAR [facility] HospitalUrine Specific Dsdrizz9043-66-53 23:37:00 * Test Item Value Reference Range Interpretation Comments Urine Specific [place] (test code = 5811-5) 1.015 1.010-1.02 5 [facility] HospitalUrine eI5151-52-28 23:37:00* Test Item Value Reference Range Interpretation Comments Urine pH (test code = 31709-4) 7 5-7 [facility] HospitalUrine Leukocyte Hzjmiyxi7898-49-25 23:37:00* Test Item Value Reference Range Interpretation Comments Urine Leukocyte Esterase (test code = 5799-2) NEGATIVE NEGATIVE [facility] HospitalUrine Lvecnaa8038-94-58 23:37:00* Test Item Value Reference Range Interpretation Comments Urine Nitrite (test code = 87647-3) NEGATIVE NEGATIVE [facility] HospitalUrine Dldkmiq8006-50-94 23:37:00* Test Item Value Reference Range Interpretation Comments Urine Protein (test code = 5804-0) 1+ NEGATIVE H [facility] HospitalUrine Glucose (UA)2018-01-05 23:37:00* Test Item Value Reference Range Interpretation Comments Urine Glucose (UA) (test code = 2349-9) NEGATIVE NEGATIVE [facility] HospitalUrine Zptznta3538-88-02 23:37:00* Test Item Value Reference Range Interpretation Comments Urine Ketones (test code = 16496-6) 1+ NEGATIVE H [facility] Zragthfajaht5935-62-82 23:37:00* Test Item Value Reference Range Interpretation Comments Urine Urobilinogen (test code = 20570-9) 0.2 0.2-1 [facility] HospitalUrine Cmslgyvaj1285-35-82 23:37:00* Test Item Value Reference Range Interpretation Comments Urine Bilirubin (test code = 1978-6) NEGATIVE NEGATIVE [facility] HospitalUrine Dhukr3629-51-46 23:37:00* Test Item Value Reference Range Interpretation Comments Urine Blood (test code = 67239-3) TRACE NEGATIVE H [facility] HospitalUrine Opiates Itoyiq9496-17-15 18:58:00* Test Item Value Reference Range Interpretation Comments Urine Opiates Screen (test code = 52432-5) NEGATIVE NEGATIVE [facility] HospitalUrine Barbiturates Anhbsr9038-45-47 18:58:00* Test Item Value Reference Range Interpretation Comments Urine Barbiturates Screen (test code = 744970645) NEGATIVE NEGA TIVE [facility] HospitalUrine Phencyclidine Krunda0481-48-63 18:58:00* Test Item Value Reference Range Interpretation Comments Urine Phencyclidine Screen (test code = 27819-6) NEGATIVE NEGAT ASHLEY [facility] HospitalUrine Amphetamines Pbbjvh1017-37-89 18:58:00* Test Item Value Reference Range Interpretation Comments Urine Amphetamines Screen (test code = 11625-0) NEGATIVE NEGATI VE [facility] HospitalUrine Methamphetamines Zsrdsb5832-64-54 18:58:00* Test Item Value Reference Range Interpretation Comments Urine Methamphetamines Screen (test code = Urine Metha mphetamines Screen) NEGATIVE NEGATIVE [facility] HospitalUrine Benzodiazepines Aghlzs3405-73-18 18:58:00* Test Item Value Reference Range Interpretation Comments Urine Benzodiazepines Screen (test code = 38296-9) NEGATIVE NEG ATIVE [facility] HospitalUrine Cocaine Maudvx1510-48-92 18:58:00* Test Item Value Reference Range Interpretation Comments Urine Cocaine Screen (test code = 3398-5) NEGATIVE NEGATIVE [facility] HospitalUrine Cannabinoids Dnhkyp7799-29-97 18:58:00* Test Item Value Reference Range Interpretation Comments Urine Cannabinoids Screen (test code = 70731-0) NEGATIVE NEGATI VE THESE RESULTS ARE FOR MEDICAL TREATMENT ONLYTHIS REPORT CONTAINS UNCONFIR MED SCREENING RESULTS*POSITIVE RESULTS WILL BE CONFIRMED BY REFERENCE LAB UPON R EQUEST CUT-OFFDRUG CLASS CONCENTRATION ng/mLAmphetamines 1000Methamphetamines 1000Cocaine 300Opiate 300Phencyc lidine 25Cannabinoid 50Barbiturates 300Benzodiazepine 300Methadone 300[facility] Usnoov3651-06-75 18:58:00* Test Item Value Reference Range Interpretation Comments Urine Methadone Screen (test code = 84362-8) NEGATIVE NEGATIVE THESE RESULTS ARE FOR MEDICAL TREATMENT ONLYTHIS REPORT CONTAINS UNCONFIR MED SCREENING RESULTS*POSITIVE RESULTS WILL BE CONFIRMED BY REFERENCE LAB UPON R EQUEST CUT-OFFDRUG CLASS CONCENTRATION ng/mLAmphetamines 1000Methamphetamines 1000Cocaine Metabolite 300Opiate 300Phencyc lidine 25Cannabinoid 50Barbiturates 300Benzodiazepine 300Methadone 300[facility] Ntaxfc6492-52-64 18:58:00* Test Item Value Reference Range Interpretation Comments Urine Opiates Screen (test code = 01544-2) NEGATIVE NEGATIVE [facility] Jsdxtp1355-26-86 18:58:00* Test Item Value Reference Range Interpretation Comments Urine Barbiturates Screen (test code = 036337289) NEGATIVE NEGA TIVE [facility] Phencyclidine Lcglku0292-17-93 18:58:00* Test Item Value Reference Range Interpretation Comments Urine Phencyclidine Screen (test code = 73072-4) NEGATIVE NEGAT ASHLEY [facility] Amphetamines Jdeeub4201-14-59 18:58:00* Test Item Value Reference Range Interpretation Comments Urine Amphetamines Screen (test code = 71208-3) NEGATIVE NEGATI VE [facility] Methamphetamines Jcbccv3848-06-01 18:58:00* Test Item Value Reference Range Interpretation Comments Urine Methamphetamines Screen (test code = Urine Metha mphetamines Screen) NEGATIVE NEGATIVE [facility] Benzodiazepines Gnpgsc9757-91-95 18:58:00* Test Item Value Reference Range Interpretation Comments Urine Benzodiazepines Screen (test code = 02536-7) NEGATIVE NEG ATIVE [facility] Cocaine Azekiv4215-03-32 18:58:00* Test Item Value Reference Range Interpretation Comments Urine Cocaine Screen (test code = 3398-5) NEGATIVE NEGATIVE [facility] Cannabinoids Wuzhod2996-51-69 18:58:00* Test Item Value Reference Range Interpretation Comments Urine Cannabinoids Screen (test code = 78773-8) NEGATIVE NEGATI VE THESE RESULTS ARE FOR MEDICAL TREATMENT ONLYTHIS REPORT CONTAINS UNCONFIR MED SCREENING RESULTS*POSITIVE RESULTS WILL BE CONFIRMED BY REFERENCE LAB UPON R EQUEST CUT-OFFDRUG CLASS CONCENTRATION ng/mLAmphetamines 1000Methamphetamines 1000Cocaine 300Opiate 300Phencyc lidine 25Cannabinoid 50Barbiturates 300Benzodiazepine 300Methadone 300[facility]one Kzbbhj3117-92-04 18:58:00* Test Item Value Reference Range Interpretation Comments Urine Methadone Screen (test code = 69035-5) NEGATIVE NEGATIVE THESE RESULTS ARE FOR MEDICAL TREATMENT ONLYTHIS REPORT CONTAINS UNCONFIR MED SCREENING RESULTS*POSITIVE RESULTS WILL BE CONFIRMED BY REFERENCE LAB UPON R EQUEST CUT-OFFDRUG CLASS CONCENTRATION ng/mLAmphetamines 1000Methamphetamines 1000Cocaine Metabolite 300Opiate 300Phencyc lidine 25Cannabinoid 50Barbiturates 300Benzodiazepine 300Methadone 300[facility]Free Ouedovypd5268-97-74 18:33:00* Test Item Value Reference Range Interpretation Comments Free Thyroxine (test code = 3024-7) 1.12 0.9-1.8 [facility] Eakmyzofn3861-38-72 18:33:00* Test Item Value Reference Range Interpretation Comments Free Thyroxine (test code = 3024-7) 1.12 0.9-1.8 [facility] Random Ifxarc7362-19-36 18:30:00* Test Item Value Reference Range Interpretation Comments Urine Random Sodium (test code = 2955-3) 65 [facility] Mkczkbnlcu5226-69-01 18:30:00* Test Item Value Reference Range Interpretation Comments Urine Creatinine (test code = 2161-8) 12.40 47-110 L [facility] Random Mbdyml3811-11-36 18:30:00* Test Item Value Reference Range Interpretation Comments Urine Random Sodium (test code = 2955-3) 65 [facility] Mpgasawndb0785-79-83 18:30:00* Test Item Value Reference Range Interpretation Comments Urine Creatinine (test code = 2161-8) 12.40 47-110 L [facility] HospitalUric Evas2917-31-69 18:11:00* Test Item Value Reference Range Interpretation Comments Uric Acid (test code = 3084-1) 1.3 2.6-8.0 L [facility] Wzoa7897-15-93 18:11:00* Test Item Value Reference Range Interpretation Comments Uric Acid (test code = 3084-1) 1.3 2.6-8.0 L [facility] HospitalThyroid Stimulating Hormone (TSH) 2018-01-05 18:06:00* Test Item Value Reference Range Interpretation Comments Thyroid Stimulating Hormone (TSH) (test code = 75235-8) 1.921 0.350-4.940 [facility] HospitalThyroid Stimulating Hormone (TSH) 2018-01-05 18:06:00* Test Item Value Reference Range Interpretation Comments Thyroid Stimulating Hormone (TSH) (test code = 57800-0) 1.921 0.350-4.940 [facility] Xgovmiewiy6396-47-31 17:44:00* Test Item Value Reference Range Interpretation Comments Serum Osmolality (test code = 36363-6) 229 278-305 L [facility] HospitalTriglycerides Ggchj9932-81-91 17:44:00* Test Item Value Reference Range Interpretation Comments Triglycerides Level (test code = 2571-8) 74 0-149 [facility] Pdlacydgva3723-07-98 17:44:00* Test Item Value Reference Range Interpretation Comments Serum Osmolality (test code = 04756-6) 229 278-305 L [facility] HospitalTriglycerides Wdwsk3379-42-37 17:44:00* Test Item Value Reference Range Interpretation Comments Triglycerides Level (test code = 2571-8) 74 0-149 [facility] Itwtbvb2816-16-07 17:16:00* Test Item Value Reference Range Interpretation Comments Bedside Glucose (test code = 39482-4) 141 70-120 H Meter ID: [id number] [facility] Glucose 2018-01-05 17:16:00* Test Item Value Reference Range Interpretation Comments Bedside Glucose (test code = 99336-0) 141 70-120 H Meter ID: [id number] [facility] HospitalAm[facility] Level 2018-01-05 02:12:00* Test Item Value Reference Range Interpretation Comments Amylase Level (test code = 1798-8) 59 25-125 [facility] HospitalLipase2018-04-20 02:12:00* Test Item Value Reference Range Interpretation Comments Lipase (test code = 3040-3) 54 8-78 [facility] HospitalAmylase Xmwtm0677-64-18 02:12:00* Test Item Value Reference Range Interpretation Comments Amylase Level (test code = 1798-8) 59 25-125 [facility] HospitalLipase2018-04-20 02:12:00* Test Item Value Reference Range Interpretation Comments Lipase (test code = 3040-3) 54 8-78 [facility] HospitalELECTROLYTES2018-04-06 11:00:0014.4 [facility] AdaahmvJIJVQBWFQYQA5361-34-68 11:00:0055[facility]ELECT[facility]OLYTES 2017-12-22 11:00:000.94[facility] TfhqymiDVICCEIPAWOG6684-78-94 11:00:68407 [facility] RjvqvgoFVUGZWLOPIHP5440-00-64 11:00:0023[facility]annELECTROLYTES 2017-12-22 11:00:40834Tnqzvyar MeuadotSKKKESAPKABV8423-43-13 11:00:004.4[facility] OfoafeiGOZQXTFVIBKS7479-88-89 11:00:0018[facility] KbiglhyQDPAGBNHBHMF1879-37-53 11:00:03428Ebkthdvs JunjuqiXGSNSKHGOWCE8541-40-15 11:00:008.9[facility] JNPUPLOYCN7469-64-24 11:00:0065.3[facility] YwxsehnZBYWHBVPKQ9031-56-87 11:00:00 23.6[facility] OelfcobIROWXVTAXR8818-27-95 11:00:007.6[facility]annHEMATOLOGY 2017-12-22 11:00:003.0[facility] NstzccwTHGKQNUSBN1593-66-91 11:00:000.3[facility] MmmdutrLVGVVTVJYU6238-32-23 11:00:000.7[facility] MhmpfvoFBUKPMONIP9301-94-97 11:00:002.2[facility] TdsgwxhGBUWQCNJNH1368-81-91 11:00:000.5[facility] INWBOFXSAE4696-70-25 11:00:006.0[facility] FutjtizXHRJBHEKFU8906-72-08 11:00:006.7 [facility] KpnglzsRPDSWIMOBL8552-43-46 11:00:0013.4[facility]annHEMATOLOGY 2017-12-22 11:00:50614Zkxnmjzf KhgafanPZRHKLHAEG0756-75-60 11:00:009.1[facility] NwzdxdhIUQQDQQWVP2348-16-58 11:00:004.34[facility] QgahkmsDCUNIDVNFB7129-94-63 11:00:0012.9[facility] JxpexrfEBNNIVRELM1214-36-51 11:00:0038.1[facility] BFFFLZDNQR9579-47-46 11:00:0087.7[facility] UcmlsfzLYMACTTSOU7835-96-89 11:00:00* Test Item Value Reference Range Interpretation Comments MCH (test code = MCH) 29.7 pg 27.0-31.0 [facility] KioktktQJSMBTFPSM1234-28-75 11:00:0033.8[facility]annCHEM PANEL 2017-12-19 12:18:0083[facility]annCHEM AWDAN3144-55-86 12:18:0012.4[facility]annCHEM YUZLE4014-36-17 12:18:0051[facility]annCHEM EUUUH7840-17-39 12:18:01339Xryzxgla HermannCHEM XAGZW4297-29-13 12:18:001.01[facility]annCHEM KIBDB4920-56-84 12:18:004.4[facility]annCHEM GZXHG7396-09-07 12:18:81244 [facility]annCHEM ERJLB7631-19-99 12:18:0022[facility]annCHEM PANEL 2017-12-19 12:18:008.8[facility] HermannCHEM ZYJSC5553-34-88 12:18:0019[facility]annBLOOD BANK IDJCXYB3970-64-57 05:08:00Negative (12/18/17 12:08 AM)[facility]annCHEM FJUVN2369-72-77 05:08:002.3[facility]annCHEM USROX3074-49-64 05:08:0082[facility]annCHEM SGOES7719-97-98 05:08:0021[facility] HermannCHEM ZVHHG1765-40-60 05:08:95933Mrrqmgac HermannCHEM ZSDIO8662-24-54 05:08:001.37 [facility]annCHEM DHEKW8715-33-95 05:08:0030[facility]annCHEM PANEL 2017-12-18 05:08:004.4[facility] HermannCHEM GYHAZ8312-80-78 05:08:00159Vieaqqkc HermannCHEM MQKRZ3132-06-15 05:08:0035[facility]annCHEM YXWKF1129-09-55 05:08:008.2[facility] HermannCHEM VGGBS3610-73-28 05:08:0013.4[facility] HermannCHEM TVDLC2305-45-42 05:08:003.1[facility] RxdpamiQHOCJKAJCP0354-65-82 05:08:00* Test Item Value Reference Range Interpretation Comments PTT (test code = PTT) 38.4 s 22.9-35.8 [facility] ZppindnTEQWFTHNAO6107-63-98 05:08:00* Test Item Value Reference Range Interpretation Comments INR (test code = INR) 1.01 1 0.85-1.17 [facility] BtcapetJVHWDCIGCH5740-54-81 05:08:00* Test Item Value Reference Range Interpretation Comments PT (test code = PT) 13.3 s 12.0-14.7 [facility] UidzrkzBOLOIZZEXA5572-21-10 05:08:009.5[facility]annHEMATOLOGY 2017-12-18 05:08:003.87[facility] ZbwieucVAYCXHUSRV1016-36-88 05:08:65127Dmzralov RxzpjfxKYTRGSASVZ8802-95-67 05:08:007.0[facility] TezfrpjWTWESWRKDQ0875-70-78 05:08:0033.8[facility] BrfqfcjLUBXGZBXLW2799-52-83 05:08:0013.3[facility] KXMKXRIDRW8837-72-37 05:08:0011.5[facility] QgieylyLVUYBNYOHH3949-21-12 05:08:00 34.1[facility] YvasnziVSAGXRCHZO9801-18-66 05:08:0088.1[facility] HermannHEMATOLOGY 2017-12-18 05:08:00* Test Item Value Reference Range Interpretation Comments MCH (test code = MCH) 29.7 pg 27.0-31.0 [facility] NwsolemEWAODNDJBY4836-55-66 05:08:0067.2[facility]annHEMATOLOGY 2017-12-18 05:08:0019.4[facility] YtdzthvWVQEBFBVOO3536-37-59 05:08:007.9[facility] TeyzbwkADAEOZBGAI8910-46-92 05:08:004.6[facility] YipepwbXRMFBOXJGC8057-31-77 05:08:000.9[facility] AfhyehaUJPDMZWTBN0543-96-33 05:08:006.4[facility] HZCZKBNHXF3739-94-40 05:08:001.8[facility] ZgsftaxGSHXEUZDGL0963-52-97 05:08:000.4 [facility] CjauhcfZQDSCKXBZF2455-65-86 05:08:000.8[facility] HermannHEMATOLOGY 2017-12-18 05:08:000.1[facility] HermannPARATHYROID RRBAWCX7283-30-74 05:08:001.06 [facility] HermannPARATHYROID XDHFFYX8411-58-44 05:08:001.06[facility] HermannBLOOD BANK ATWOFDH5595-56-96 15:15:00Product available (12/17/17 10:15 AM)[facility]annBLOOD BANK HMPREXL9882-12-89 15:15:00Product available (12/17/17 10:15 AM) [facility]UR[facility] AND POPKF9718-62-88 15:14:00Negative (12/17/17 10:14 AM) [facility] EYGML3568-37-66 15:14:00Negative *NA*(12/17/17 10:14 AM) [facility] WZHMI8747-50-30 15:14:00Yellow *NA*(12/17/17 10:14 AM) [facility] LEZJJ2356-58-78 15:14:00<1[facility] AND TCRMW4068-38-74 15:14:00<1[facility] AND JGAZO6851-24-35 15:14:00 Negative (12/17/17 10:14 AM)[facility] AND NDAIQ2418-52-21 15:14:00 Negative (12/17/17 10:14 AM)[facility] AND DTXTG2305-48-01 15:14:00* Test Item Value Reference Range Interpretation Comments UA pH (test code = UA pH) 7.0 1 5.0-8.0 [facility] AND PKMBM7320-56-70 15:14:00* Test Item Value Reference Range Interpretation Comments UA Spec Grav (test code = UA Spec Grav) 1.008 1 [facility] AND IIZTQ4348-35-27 15:14:00Clear (12/17/17 10:14 AM) [facility] FohbymzCUTUQHTMKJ9224-52-27 14:15:000.38[facility] HermannHEMATOLOGY 2017-12-16 10:12:001.0[facility] UmutoddHTGDHZCDEC2311-68-81 10:12:000.8[facility] BnanswuRVKKYLNZSA9370-10-36 10:12:005.2[facility] NgwddvgMAWQGDMHIS0106-58-13 10:12:001.6[facility] WdmcaixGWNRLISYMY5205-03-85 10:12:004.9[facility] IGJEQDJPOD2656-89-94 10:12:000.4[facility] RvmekwxAEKILNYPBQ0336-89-95 10:12:000.1 [facility] KrhsyiaGJCIHBKOPI3168-67-46 10:12:0011.7[facility] HermannHEMATOLOGY 2017-12-16 10:12:0062.9[facility] SxdesagFTMYAOHYPJ9038-00-28 10:12:0019.7[facility] LtrnsioHOTZBUFBZA9292-78-43 10:12:008.2[facility] AopvfskEXXVSXNLDI3818-16-25 10:12:003.60[facility] InlldozUQWFCGMHXN2273-81-49 10:12:00* Test Item Value Reference Range Interpretation Comments MCH (test code = MCH) 30.0 pg 27.0-31.0 [facility] UhygnntQJXYEJDVAK0421-73-78 10:12:0010.8[facility] HermannHEMATOLOGY 2017-12-16 10:12:0031.3[facility] QfihzxkOMDZMEDOVP4903-12-15 10:12:0013.3[facility] OpgaktqXDNFXDCQHC8644-43-49 10:12:76816Ivclzaui SabdpnkYDVTAZNLLT6331-21-74 10:12:0034.5[facility] EcpncwzVTIUVWSNZC5683-09-09 10:12:0087.1[facility] BIOXXRZCOW9401-37-03 10:12:007.2[facility] SphgkqmPQELTMIWIH5049-99-73 19:02:00 12.6[facility]annBLOOD BANK AKMHNOE2026-37-26 19:01:00Negative (12/15/17 2:01 PM)[facility] HermannCHEM DSXQA8260-71-90 19:01:001.0[facility] HermannHEMATOLOGY 2017-12-15 19:01:000.1[facility] HermannCT BRAIN WO [place] [address] Patient Name: FRANK PERRY MR #: [id number] : 1930 Age/Sex: 87/F Req #: [id number] Adm Physician: Ordered by: LILIANA GARCIA MD Report #: [id number] Location: ER Room/Bed: Procedure: [id number] CT/CT BRAIN WO Exam Date: 01/28 Exam Time: 52 REPORT STATUS: Signed Hi story:Headache Comparison studies:Head [...] TO: LILIANA GARCIA MD CHEST SINGLE (PORTABLE) [place] [address] Patient Name: FRANK PERRY MR #: [id number] : Age/Sex: 87/F Req #: [id number] Adm Physician: Ordered by: LILIANA GARCIA MD Report #: [id number] Location: ER Room/Bed: Procedure: [id number] DX/CHEST SINGLE (PORTABLE) Exam Date: 01/28/18 Exam Time: 0058 REPORT STATUS: Signed CHEST SINGLE (PORTABLE), 01/28/2018 [...] LILIANA GARCIA MD BARIUM ENEMA W/AIR C [place] [address] Patient Name: FRANK PERRY MR #: [id number] : 1930 Age/Sex: 87/F Req #: [id number] Adm Physician: Ordered by: PIA MCCANN MD Report #: [id number] Location: DX Room/Bed: Procedure: [id number] DX/BARIUM ENEMA W/AIR C Exam Date : [...] bilateral decubitus images were obtained. FINDINGS: The laboratory cureman film demon strates no acute abnormalities. There [...] 01/26/18 111 COPY TO: PIA MCCANN MD CHEST SINGLE (PORTABLE) [place] [address] Patient Name: FRANK PERRY MR #: [id number] : 1930 Age/Sex: 87/F Req #: [id number] Adm Physician: CALEB ALATORRE MD Ordered by: MICHELET RECIO MD Report #: [id number] Location: ICU Room/Bed: ICU [facility] Procedure: [id number] DX/ CHEST SINGLE (PORTABLE) Exam Date: 01/06/18 [...] 6:51 AM Dictated By: JESSE MOSCOSO MD Transcribed By: ROLO on 01/06/1851 COPY TO: MICHELET RECIO MD, ABI CT BRAIN WO [place] [address] Patient Name: FRANK PERRY MR #: [id number] : 1930 Age/Sex: 87/F Req #: [id number] Adm Physician: CALEB HINES MD Ordered by: CALEB ALATORRE MD Report #: [id number] Locati on: ICU Room/Bed: ICU 192-1 Procedure: [id number] CT/C T BRAIN WO Exam Date: 01/05/18 [...] COPY TO: NANCY ALATORRE MD CT ABDOMEN/PELVIS [place] [address] Patient Name: FRANK PERRY MR #: [id number] : 1930 Age/Sex: 87/F Req #: [id number] Adm Physician: Ordered by: ELIZABETH JAMES MD Report #: [id number] Location: ER Room/Bed: Procedure: [id number] CT/CT ABDOMEN/PELVIS W E xam Date: Exam [...] JAMES MD ABDOMEN ACUTE SERIES W/PA CXR [place] [address] Patient Name: FRANK PERRY MR #: [id number] : 1930 Age/Sex: 87/F Req #: [id number] Adm Physician: Ordered by: ELIZABETH JAMES MD Report #: [id number] Location: ER Room/Bed: Procedure: [id number] DX/ABDOMEN ACUTE SERIES W /PA CXR Exam [...]
[2020-04-22 09:43] LABS: ALBUMIN 4.5 g/dL (3.5-5.0); ALBUMIN/GLOBULIN RATIO 1.4 (0.8-2.0); ANION GAP 14.3 mmol/L (8-16); CALCIUM 9.5 mg/dL (8.4-10.2); CREATININE, SERUM 1.22 mg/dL (0.57-1.11); POTASSIUM 4.3 mmol/L (3.5-5.1)
[2020-04-22 09:50] LABS: CREATINE KINASE MB 3.7 ng/mL (0-5.0)
--- NOTE | 2020-04-22 10:00 | Diagnostic Imaging Report ---
EXAMINATION: CHEST SINGLE (PORTABLE) INDICATION: Altered mental status COMPARISON: None FINDINGS: LINES/TUBES:None LUNGS:The lungs are hyperinflated. No focal consolidation or pulmonary edema. PLEURA:No pleural effusion or pneumothorax. MEDIASTINUM:The cardiomediastinal silhouette appears normal in size and shape. Atherosclerotic calcifications of the thoracic aorta. BONES/SOFT TISSUES:No acute osseous injury. ABDOMEN:No free air under the diaphragm. IMPRESSION: Hyperinflated lungs. No focal pneumonia or pulmonary edema. Signed by: Latha Palomares MD on 04/22/2020 9:57 AM
--- NOTE | 2020-04-22 10:08 | Diagnostic Imaging Report ---
EXAMINATION: Head CT HISTORY: Alteration of consciousness COMPARISON: None. TECHNIQUE: Helical axial images of the head were obtained. Reformatted coronal and sagittal images from the axial data. Dose modulation, iterative reconstruction, and/or weight based adjustment of the mA/kV was utilized to reduce the radiation dose to as low as reasonably achievable. Image quality: Motion/streaking artifact limits the evaluation of the skull base and posterior cranial fossa. FINDINGS: Parenchyma: 1. No abnormal densities. Normal prominent perivascular space inferior to the right putamen is incidentally noted. 2. No mass or hemorrhage. No CT evidence of acute territorial vascular insult. Extra-axial spaces:No abnormal density. No extra-axial fluid collections Brain volume: Normal for age. Ventricles: No hydrocephalus or displacement. Arteries: No density suggestive of thrombus. Dural sinuses: No abnormal density. Foramen magnum: No mass, Chiari malformation, or basilar invagination. Sella: No obvious mass. Paranasal/mastoid sinuses: Imaged portions unremarkable. Skull/Scalp: No lytic or blastic lesions. No fractures. IMPRESSION: No intracranial abnormalities, particularly no mass, hemorrhage or acute cortical infarct. Signed by: Dr. Aimee Graves M.D. on 04/22/2020 10:05 AM
[2020-04-22] MEDS: CEFTRIAXONE SOD 1 GM/NS 50 ML 50 ML IV SCH ×2 (10:27→22:53)
[2020-04-22] MEDS ORDERED: MORPHINE SULFATE 2 MG/ML SYR 1ML IV PRN (10:30)
[2020-04-22] MEDS ORDERED: ONDANSETRON HCL INJ 2MG/ML 2ML 2 MG/ML VIAL IV PRN (10:30)
--- NOTE | 2020-04-22 10:35 | Emergency Department Note ---
History of Present Illnes History of Present Illness Chief Complaint: General Medicine Complaints History of Present Illness This is a 89 year old female ams per family. pt was here on Monday for sciatica and was aaox4. drove herself on monday to er. pt was ambulatory and neuro intact. today pt presents as...slow to answer, but correct answers. pt awake, alert, ambulatory, but does seem foggy in her answers. son states pt had urinary incontinence as well. pt wasn't answering phone either, which is different from her norm. pt states burning with urination. Also continues to c/o low back pain Historian: Patient, Family Member Arrival Mode: Car Onset (how long ago): day(s) (TODAY) Radiation: Reports non-radiation Severity: mild Onset quality: gradual Duration (how long): day(s) (today) Chronicity: new Context: Denies recent illness Relieving factors: none Exacerbating factors: none Associated symptoms: Reports confusion Treatments prior to arrival: none Past Medical/Family History Physician Review I have reviewed the patient's past medical and family history. Any updates have been documented here. Past Medical History Recent Fever: No Clinical Suspicion of Infectio: No New/Unexplained Change in Ment: No Past Medical History: Hypertension, GERD, Hyperlipedemia, Chronic Back Pain, Os teoarthritis Other Medical History: DIVERTICULITIS OSTEOPORSIS Other Surgery: LASIK SKIN GRAFTS Social History Smoking Cessation: Unknown if ever smoked Counseling Performed: No Alcohol Use: None Any Illegal Drug Use: No Family History Family history of heart diseas: No Other Last Tetanus: UTD Any Pre-Existing Lines (PICC,: No Review of Systems Review of Systems Constitutional: Reports no symptoms EENTM: Reports no symptoms Cardiovascular: Reports no symptoms Respiratory: Reports no symptoms Gastrointestinal: Reports no symptoms Genitourinary: Reports as per HPI, Reports dysuria Musculoskeletal: Reports as per HPI, Reports back pain Integumentary: Reports no symptoms Neurological: Reports as per HPI Psychological: Reports no symptoms Endocrine: Reports no symptoms Hematological/Lymphatic: Reports no symptoms Review of other systems: All other systems negative Physical Exam Related Data Allergies: Coded Allergies: gabapentin (Verified Allergy, Unknown, memory loss, 10/18/19) Triage Vital Signs Vital Signs Date Time Temp Pulse Resp B/P (MAP) Pulse Ox O2 Delivery O2 Flow Rate FiO2 04/22/20 09:01 97.7 76 14 150/79 100 Room Air Vital signs reviewed: Yes Physical Exam CONSTITUTIONAL Constitutional: Present well-developed, Present well-nourished HENT HENT: Present normocephalic, Present atraumatic, Present oropharynx clear/moist, Present nose normal HENT L/R: Present left ext ear normal, Present right ext ear normal EYES Eyes: Reports PERRL, Reports conjunctivae normal NECK Neck: Present ROM normal, Present supple PULMONARY Pulmonary: Present effort normal, Present breath sounds normal CARDIOVASCULAR Cardiovascular: Present regular rhythm, Present heart sounds normal, Present capillary refill normal, Present normal rate GASTROINTESTINAL Abdominal: Present soft, Present nontender, Present bowel sounds normal GENITOURINARY Genitourinary: Present exam deferred SKIN Skin: Present warm, Present dry, Present bruising (LEFT BUTTOCKS TO PERINEUM AND LEFT LABIA ANTERIORLY), Present other MUSCULOSKELETAL Musculoskeletal: Present ROM normal NEUROLOGICAL Neurological: Present alert, Present oriented x 3, Present no gross motor or sensory deficits, Present other (SLOW TO ANSWER QUESTIONS); Absent cranial nerve deficit, Absent sensory deficit, Absent abnormal gait, Absent weakness PSYCHOLOGICAL Psychological: Present mood/affect normal, Present judgement normal Results Laboratory Result Diagram: 04/22/2017 04/22/20 0917 Laboratory Laboratory Tests Test 04/22/20 09:17 White Blood Count 10.94 x10e3/uL (4.8-10.8) Red Blood Count 4.86 x10e6/uL (3.6-5.1) Hemoglobin 14.6 g/dL (12.0-16.0) Hematocrit 40.9 % (34.2-44.1) Mean Corpuscular Volume 84.2 fL (81-99) Mean Corpuscular Hemoglobin 30.0 pg (28-32) Mean Corpuscular Hemoglobin Concent 35.7 g/dL (31-35) Red Cell Distribution Width 12.0 % (11.7-14.4) Platelet Count 285 x10e3/uL (140-360) Neutrophils (%) (Auto) 72.7 % (38.7-80.0) Lymphocytes (%) (Auto) 10.8 % (18.0-39.1) Monocytes (%) (Auto) 10.1 % (4.4-11.3) Eosinophils (%) (Auto) 0.7 % (0.0-6.0) Basophils (%) (Auto) 0.3 % (0.0-1.0) Neutrophils # (Auto) 8.0 (2.1-6.9) Lymphocytes # (Auto) 1.2 (1.0-3.2) Monocytes # (Auto) 1.1 (0.2-0.8) Eosinophils # (Auto) 0.1 (0.0-0.4) Basophils # (Auto) 0.0 (0.0-0.1) Absolute Immature Granulocyte (auto 0.59 x10e3/uL (0-0.1) Prothrombin Time 12.7 seconds (11.9-14.5) Prothromb Time International Ratio 0.91 Activated Partial Thromboplast Time 29.0 seconds (23.8-35.5) Sodium Level 119 mmol/L (136-145) Potassium Level 4.3 mmol/L (3.5-5.1) Chloride Level 85 mmol/L (98-107) Carbon Dioxide Level 24 mmol/L (22-29) Anion Gap 14.3 mmol/L (8-16) Blood Urea Nitrogen 20 mg/dL (7-26) Creatinine 1.22 mg/dL (0.57-1.11) Estimat Glomerular Filtration Rate 42 ML/MIN (60-) BUN/Creatinine Ratio 16 (6-25) Glucose Level 122 mg/dL (74-118) Calcium Level 9.5 mg/dL (8.4-10.2) Magnesium Level 2.0 MG/DL (1.3-2.1) Total Bilirubin 1.5 mg/dL (0.2-1.2) Aspartate Amino Transf (AST/SGOT) 24 IU/L (5-34) Alanine Aminotransferase (ALT/SGPT) 17 IU/L (0-55) Alkaline Phosphatase 85 IU/L (40-150) Creatine Kinase 103 IU/L (29-168) Creatine Kinase MB 3.70 ng/mL (0-5.0) Troponin I 0.005 ng/mL (0-0.300) Total Protein 7.7 g/dL (6.5-8.1) Albumin 4.5 g/dL (3.5-5.0) Globulin 3.2 g/dL (2.3-3.5) Albumin/Globulin Ratio 1.4 (0.8-2.0) Lab results reviewed: Yes Imaging Imaging results reviewed: Yes Procedures 12 Lead ECG Interpretation ECG Interpretation : ECG: ECG 1 Skills Instructor: Interpreted by ED physician Date: Apr 22, 2020 Time: 09:29 Rhythm: sinus rhythm Rate: normal (68) QRS axis: normal ST segment elevation: V3 (UPSLOPING), V4 (UPSLOPING) T waves normal: Yes Other findings: LVH Clinical Impression: abnormal ECG Critical Care Time Total Critical Care Time (min): 30 Critical care time exclusive o: separately billable procedures Critcal care necessary due to: other Critcal care time spent by me: discussion w primary provider, evaluation patient response to tx, examination of patient, order/review laboratory studies, order/review radiographic studies, re-evaluation of patient condition Assessment & Plan Medical Decision Making MDM AMS - CHECK CBC, CHEM, UA/CX, ECG CARDIAC ENZYMES, CXR, CT BRAIN - R/O UTI, ELECTROLYTE ABNL, MED/DRUG S/E, STEMI/NSTEMI, CEREBRAL BLEED, CVA, DEHYDRATION Reassessment Reassessment I SPOKE WITH DR MORAN FOR ADMISSION Assessment & Plan Final Impression: (1) Altered mental status (2) Hyponatremia (3) Renal insufficiency (4) Chronic back pain Depart Disposition: ADMITTED Last Vital Signs Date Time Temp Pulse Resp B/P (MAP) Pulse Ox O2 Delivery O2 Flow Rate FiO2 04/22/20 09:01 97.7 76 14 150/79 100 Room Air Home Meds Reported Medications Propafenone Hcl (PROPAFENONE HCL) 325 Mg Cap.er.12h, 150 MG PO BID, CAP 11/30/19 Lorazepam (LORAZEPAM) 2 Mg/1 Ml Oral.conc, 0.5 MG PO PRN for anxiety Take one to two tabs by mouth as needed. 11/30/19 Shark Liver Oil/[place] Butter (HEMORRHOIDAL [employer]ORIES) 1 Each Supp.rect, 1 SUPP RC PRN 06/05/19 Ranitidine Hcl (RANITIDINE HCL) 150 Mg Capsule, 150 MG PO DAILY 06/05/19 Lidocaine (RECTICARE) 30 Gm Cream..g., 1 APPLIC TOP PRN 06/05/19 [Acetaminophen] (Tylenol) No Conflict Check, 1000 MG PO DAILY 06/05/19 [place]-3 Fatty Acids/Fish Oil (FISH OIL 1,200 MG SOFTGEL) 1 Each Capsule, 2400 MG PO DAILY 06/05/19 Calcium Carbonate/Vitamin D3 (CALTRATE-600 WITH VIT D TAB) 1 Each Tablet, 1200 MG PO DAILY 06/05/19 Aspirin (ASPIR 81) 81 Mg Tablet.dr, 81 MG PO DAILY 06/05/19 Hydrocortisone (PROCTOSOL-HC) 28.35 Gm Cream..g., 2.5 % RC TID 06/05/19 Amlodipine Besylate (AMLODIPINE BESYLATE) 2.5 Mg Tablet, 2.5 MG PO Q12H for HYPERTENSION 01/11/19 Acebutolol Hcl (ACEBUTOLOL HCL) 200 Mg Capsule, 200 MG PO BID, #30 CAP 01/28/18 Medications in the ED Sodium Chloride 1,000 ml @ 0 mls/hr Q0M STAT IV ; Start 04/22/20 at 09:13; Stop 04/22/20 at 09:18; Status DC Ondansetron HCl 4 mg Q4H PRN IV NAUSEA AND VOMITING; Start 04/22/20 at 10:30; Stop 05/22/20 at 10:29; Status UNV Sodium Chloride 1,000 ml @ 100 mls/hr Q10H IV ; Start 04/22/20 at 10:30; Stop 04/23/20 at 06:29; Status UNV Morphine Sulfate 2 mg Q4H PRN IV SEVERE PAIN (7-10); Start 04/22/20 at 10:30; Stop 04/29/20 at 10:29; Status UNV Ceftriaxone Sodium 50 ml @ 100 mls/hr Q12H IV ; Start 04/22/20 at 10:30; Stop 04/29/20 at 10:29; Status UNV LILIANA GARCIA MD Apr 22, 2020 10:35
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
[2020-04-22 10:43] LABS: AMPHETAMINES SCREEN,URINE NEGATIVE (NEGATIVE); BENZODIAZEPINES SCREEN,URINE NEGATIVE (NEGATIVE); PHENCYCLIDINE SCREEN,URINE NEGATIVE (NEGATIVE)
--- OUTSIDE RECORDS SUMMARY | 2020-04-22 10:44 | XMS REPORT | Continuity of Care Document ---
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 vcronltogy0043-34-39 08:58:00* Test Item Value Reference Range Interpretation Comments Lymphocytes (%) (Auto) (test code = 736-9) 17.5 18.0-39.1 [facility] CampusAutomated blood monocyte count as percentage of total ihzjodoxqr1702-11-19 08:58:00* Test Item Value Reference Range Interpretation Comments Monocytes (%) (Auto) (test code = 5905-5) 9.0 4.4-11.3 [facility] CampusAutomated blood eosinophil count as percentage of total queubttihj9368-54-10 08:58:00* Test Item Value Reference Range Interpretation Comments Eosinophils (%) (Auto) (test code = 713-8) 3.9 0.0-6.0 [facility] CampusAutomated blood basophil count as percentage of total ekdcwviswu7778-93-40 08:58:00* Test Item Value Reference Range Interpretation Comments Basophils (%) (Auto) (test code = 706-2) 0.6 0.0-1.0 [facility] CampusFluoroscopic procedure less than one hour ukfdabic9941-60-84 08:58:00* Test Item Value Reference Range Interpretation Comments IM GRANULOCYTES % (test code = IM GRANULOCYTES %) 1.0 0.0- 1.0 [facility] CampusAutomated blood neutrophil count 2020-01-31 08:58:00* Test Item Value Reference Range Interpretation Comments Neutrophils # (Auto) (test code = 751-8) 4.8 2.1-6.9 [facility] CampusBlood lymphocytes count (number/volume) 2020-01-31 08:58:00* Test Item Value Reference Range Interpretation Comments Lymphocytes # (Auto) (test code = 20311-5) 1.2 1.0-3.2 [facility] CampusBlood monocytes automated count (number/volume)2020-01-31 08:58:00* Test Item Value Reference Range Interpretation Comments Monocytes # (Auto) (test code = 742-7) 0.6 0.2-0.8 [facility] CampusAutomated blood eosinophil count 2020-01-31 08:58:00* Test Item Value Reference Range Interpretation Comments Eosinophils # (Auto) (test code = 711-2) 0.3 0.0-0.4 [facility] CampusAutomated blood basophil count (count/volume)2020-01-31 08:58:00* Test Item Value Reference Range Interpretation Comments Basophils # (Auto) (test code = 704-7) 0.0 0.0-0.[address] [facility] CenterFluor[facility] procedure less than one hour wiuvbggh0851-68-62 08:58:00* Test Item Value Reference Range Interpretation Comments Absolute Immature Granulocyte (auto (inocente t code = Absolute Immature Granulocyte (auto) 0.07 0-0.1 [facility] CampusInfluenza Virus Types A,B Antigen 2019-12-01 16:02:00* Test Item Value Reference Range Interpretation Comments Influenza Virus Types A,B Antigen (test code = 88369-8) NEGATIVE NEGATIVE [facility] Vcxtc9394-52-46 15:28:00* Test Item Value Reference Range Interpretation Comments Sodium Level (test code = 2951-2) 132 136-145 L [facility] CampusPotassium Lxnzd5304-12-82 15:28:00* Test Item Value Reference Range Interpretation Comments Potassium Level (test code = 2823-3) 4.2 3.5-5.1 [facility] CampusChloride Icucy1917-93-91 15:28:00* Test Item Value Reference Range Interpretation Comments Chloride Level (test code = 2075-0) 96 98-107 L [facility] CampusCarbon Dioxide Vqwfj5033-96-89 15:28:00* Test Item Value Reference Range Interpretation Comments Carbon Dioxide Level (test code = 2028-9) 27 22-29 [facility] CampusAnion Vym5443-70-01 15:28:00* Test Item Value Reference Range Interpretation Comments Anion Gap (test code = 19920-9) 13.2 8-16 [facility] CampusBlood Urea Czxwlwvm0755-22-77 15:28:00* Test Item Value Reference Range Interpretation Comments Blood Urea Nitrogen (test code = 3094-0) 17 7-26 [facility] CampusCreatinine2020-03-15 15:28:00* Test Item Value Reference Range Interpretation Comments Creatinine (test code = 2160-0) 0.98 0.57-1.11 [facility] CampusBUN/Creatinine Ocfei6260-02-68 15:28:00* Test Item Value Reference Range Interpretation Comments BUN/Creatinine Ratio (test code = 3097-3) 17 6-25 [facility] CampusEstimat Glomerular Filtration Rate 2019-12-01 15:28:00* Test Item Value Reference Range Interpretation Comments Estimat Glomerular Filtration Rate (test code = 204714599) 54 >60 L Ranges were taken from the National Kidney Disease Education Program and the [facility] Kidney Foundation literature.Reference ranges:60 or greater: Zxgkbu60-54 ( for 3 consecutive months): Chronic kidney disease 15 or less: Kidney failureThe Hospitals of [facility] CampusGlucose Vntla2339-23-30 15:28:00* Test Item Value Reference Range Interpretation Comments Glucose Level (test code = ZFC0900) 113 74-118 [facility] CampusCalcium Xrkcw1382-50-13 15:28:00* Test Item Value Reference Range Interpretation Comments Calcium Level (test code = 82031-7) 10.2 8.4-10.2 [facility] CampusMagnesium Bsnqn9568-88-97 15:28:00* Test Item Value Reference Range Interpretation Comments Magnesium Level (test code = 44448-0) 2.2 1.3-2.1 H [facility] CampusTotal Tosjgfvyp3969-76-36 15:28:00* Test Item Value Reference Range Interpretation Comments Total Bilirubin (test code = 1975-2) 0.4 0.2-1.2 [facility] CampusAspartate Amino Transf (AST/SGOT) 2019-12-01 15:28:00* Test Item Value Reference Range Interpretation Comments Aspartate Amino Transf (AST/SGOT) (test code = Aspartate Amino Transf (AST/SGOT)) 24 5-34 [facility] CampusAlanine Aminotransferase (ALT/SGPT) 2019-12-01 15:28:00* Test Item Value Reference Range Interpretation Comments Alanine Aminotransferase (ALT/SGPT) (test code = 1742-6) 25 0-55 [facility] CampusTotal Enlwdpe2231-24-66 15:28:00* Test Item Value Reference Range Interpretation Comments Total Protein (test code = 2885-2) 8.5 6.5-8.1 H [facility] CampusAlbumin2020-03-15 15:28:00* Test Item Value Reference Range Interpretation Comments Albumin (test code = 1751-7) 4.7 3.5-5.0 [facility] CampusGlobulin2020-03-15 15:28:00* Test Item Value Reference Range Interpretation Comments Globulin (test code = 81794-6) 3.8 2.3-3.5 H [facility] CampusAlbumin/Globulin Ggqip3801-44-97 15:28:00 * Test Item Value Reference Range Interpretation Comments Albumin/Globulin Ratio (test code = 1759-0) 1.2 0.8-2.0 [facility] CampusAlkaline Qigsgmlawyi0541-53-95 15:28:00* Test Item Value Reference Range Interpretation Comments Alkaline Phosphatase (test code = 6768-6) 97 40-150 [facility] CampusCreatine Mxtduj5123-60-77 15:28:00* Test Item Value Reference Range Interpretation Comments Creatine Kinase (test code = 2157-6) 54 29-168 [facility] CampusCreatine Kinase CW9901-56-27 15:28:00* Test Item Value Reference Range Interpretation Comments Creatine Kinase MB (test code = 57140-1) 3.80 0-5.0 [facility] CampusTroponin Q0659-22-09 15:28:00* Test Item Value Reference Range Interpretation Comments Troponin I (test code = FUM0839) 0.014 0-0.300 [facility] CampusLipase2020-03-15 15:28:00* Test Item Value Reference Range Interpretation Comments Lipase (test code = 3040-3) 35 8-78 [facility] CampusInfluenza virus A and B antigen identification by xzpxdnnowtorduoazt1888-86-50 15:22:00* Test Item Value Reference Range Interpretation Comments Influenza Virus Types A,B Antigen (test code = 89048-6) NEGATIVE NEGATIVE [facility] CampusInfluenza virus A and B antigen identification by cjdohzahhlzftkqbcs2018-57-01 15:22:00* Test Item Value Reference Range Interpretation Comments Influenza Virus Types A,B Antigen (test code = 49679-4) NEGATIVE NEGATIVE [facility] CampusProthrombin Cudq6667-42-35 15:12:00* Test Item Value Reference Range Interpretation Comments Prothrombin Time (test code = 5902-2) 12.3 11.9-14.5 [facility] CampusProthromb Time International Ratio 2019-12-01 15:12:00* Test Item Value Reference Range Interpretation Comments Prothromb Time International Ratio (test code = 6301-6) 0.87 Oral Anticoagulant Therapy INR Values:1. Low Intensity Therapy 1.5 - 2.02 . Moderate Intensity Therapy 2.0 - 3.03. High Intensity Therapy(1) 2.5 - 3. 54. High Intensity Therapy(2) 3.0 - 4.05. Panic Value INR > 5.0 [facility] CampusActivated Partial Thromboplast Time 2019-12-01 15:12:00* Test Item Value Reference Range Interpretation Comments Activated Partial Thromboplast Time (test code = 79833-4) 26.9 23.8-35.5 [facility] CampusUrine MMS2803-03-40 15:11:00* Test Item Value Reference Range Interpretation Comments Urine WBC (test code = 5821-4) 0-5 0-5 [facility] CampusUrine IGD6003-10-34 15:11:00* Test Item Value Reference Range Interpretation Comments Urine RBC (test code = 52191-3) 0-5 0-5 [facility] CampusUrine Txvdorot5775-56-62 15:11:00* Test Item Value Reference Range Interpretation Comments Urine Bacteria (test code = 87586-6) RARE NONE [facility] CampusUrine Epithelial Hekfa4112-81-39 15:11:00 * Test Item Value Reference Range Interpretation Comments Urine Epithelial Cells (test code = 57056-3) RARE NONE [facility] CampusUrine Jbkky2820-64-32 15:06:00* Test Item Value Reference Range Interpretation Comments Urine Color (test code = 5778-6) YELLOW YELLOW [facility] CampusUrine Utuzrsi3938-98-94 15:06:00* Test Item Value Reference Range Interpretation Comments Urine Clarity (test code = 05960-5) CLEAR CLEAR [facility] CampusUrine Specific Jgmxavo8712-49-09 15:06:00 * Test Item Value Reference Range Interpretation Comments Urine Specific [place] (test code = 5811-5) 1.020 1.010-1.02 5 [facility] CampusUrine pT9038-17-54 15:06:00* Test Item Value Reference Range Interpretation Comments Urine pH (test code = 64623-1) 7.5 5-7 [facility] CampusUrine Leukocyte Nubzxyrj7913-40-81 15:06:00* Test Item Value Reference Range Interpretation Comments Urine Leukocyte Esterase (test code = 5799-2) NEGATIVE NEGATIVE [facility] CampusUrine Qgfvnvc9203-22-23 15:06:00* Test Item Value Reference Range Interpretation Comments Urine Nitrite (test code = 65022-3) NEGATIVE NEGATIVE [facility] CampusUrine Seipchg0354-76-59 15:06:00* Test Item Value Reference Range Interpretation Comments Urine Protein (test code = 5804-0) NEGATIVE NEGATIVE [facility] CampusUrine Glucose (UA)2019-12-01 15:06:00* Test Item Value Reference Range Interpretation Comments Urine Glucose (UA) (test code = 2349-9) NEGATIVE NEGATIVE [facility] CampusUrine Jzupaox1345-98-82 15:06:00* Test Item Value Reference Range Interpretation Comments Urine Ketones (test code = 67989-5) NEGATIVE NEGATIVE [facility] CampusUrine Mpfetnuspzpg1688-06-32 15:06:00* Test Item Value Reference Range Interpretation Comments Urine Urobilinogen (test code = 25807-1) 0.2 0.2-1 [facility] CampusUrine Kpmnjhyce9565-97-39 15:06:00* Test Item Value Reference Range Interpretation Comments Urine Bilirubin (test code = 1978-6) NEGATIVE NEGATIVE [facility] CampusUrine Vzlmv7798-59-98 15:06:00* Test Item Value Reference Range Interpretation Comments Urine Blood (test code = 53855-4) NEGATIVE NEGATIVE [facility] CampusWhite Blood Mycin1273-21-25 15:00:00* Test Item Value Reference Range Interpretation Comments White Blood Count (test code = 6690-2) 10.68 4.8-10.8 [facility] CampusRed Blood Ctnli1957-07-76 15:00:00* Test Item Value Reference Range Interpretation Comments Red Blood Count (test code = 789-8) 4.95 3.6-5.1 [facility] CampusHemoglobin2020-03-15 15:00:00* Test Item Value Reference Range Interpretation Comments Hemoglobin (test code = 13969-8) 15.0 12.0-16.0 [facility] CampusHematocrit2020-03-15 15:00:00* Test Item Value Reference Range Interpretation Comments Hematocrit (test code = 4544-3) 44.5 34.2-44.1 H [facility] CampusMean Corpuscular Dzgibw6063-81-72 15:00:00* Test Item Value Reference Range Interpretation Comments Mean Corpuscular Volume (test code = 787-2) 89.9 81-99 [facility] CampusMean Corpuscular Qnblsgizfs2787-68-05 15:00:00* Test Item Value Reference Range Interpretation Comments Mean Corpuscular Hemoglobin (test code = 785-6) 30.3 28-32 [facility] CampusMean Corpuscular Hemoglobin Concent 2019-12-01 15:00:00* Test Item Value Reference Range Interpretation Comments Mean Corpuscular Hemoglobin Concent (test code = 786-4) 33.7 31-35 [facility] CampusRed Cell Distribution Peqtn8703-29-18 15:00:00* Test Item Value Reference Range Interpretation Comments Red Cell Distribution Width (test code = 32386-5) 13.0 11.7 -14.4 [facility] CampusPlatelet Kxmbt7993-46-67 15:00:00* Test Item Value Reference Range Interpretation Comments Platelet Count (test code = 777-3) 277 140-360 [facility] CampusNeutrophils (%) (Auto)2019-12-01 15:00:00 * Test Item Value Reference Range Interpretation Comments Neutrophils (%) (Auto) (test code = 55068-8) 86.8 38.7-80.0 H [facility] CampusLymphocytes (%) (Auto)2019-12-01 15:00:00 * Test Item Value Reference Range Interpretation Comments Lymphocytes (%) (Auto) (test code = 736-9) 7.3 18.0-39.1 L [facility] CampusMonocytes (%) (Auto)2019-12-01 15:00:00* Test Item Value Reference Range Interpretation Comments Monocytes (%) (Auto) (test code = 5905-5) 2.2 4.4-11.3 L [facility] CampusEosinophils (%) (Auto)2019-12-01 15:00:00 * Test Item Value Reference Range Interpretation Comments Eosinophils (%) (Auto) (test code = 713-8) 1.0 0.0-6.0 [facility] CampusBasophils (%) (Auto)2019-12-01 15:00:00* Test Item Value Reference Range Interpretation Comments Basophils (%) (Auto) (test code = 706-2) 0.4 0.0-1.0 [facility] CampusIM GRANULOCYTES %2019-12-01 15:00:00* Test Item Value Reference Range Interpretation Comments IM GRANULOCYTES % (test code = IM GRANULOCYTES %) 2.3 0.0- 1.0 H [facility] CampusNeutrophils # (Auto)2019-12-01 15:00:00* Test Item Value Reference Range Interpretation Comments Neutrophils # (Auto) (test code = 751-8) 9.3 2.1-6.9 H [facility] CampusLymphocytes # (Auto)2019-12-01 15:00:00* Test Item Value Reference Range Interpretation Comments Lymphocytes # (Auto) (test code = 63021-4) 0.8 1.0-3.2 L [facility] CampusMonocytes # (Auto)2019-12-01 15:00:00* Test Item Value Reference Range Interpretation Comments Monocytes # (Auto) (test code = 742-7) 0.2 0.2-0.8 [facility] CampusEosinophils # (Auto)2019-12-01 15:00:00* Test Item Value Reference Range Interpretation Comments Eosinophils # (Auto) (test code = 711-2) 0.1 0.0-0.4 [facility] CampusBasophils # (Auto)2019-12-01 15:00:00* Test Item Value Reference Range Interpretation Comments Basophils # (Auto) (test code = 704-7) 0.0 0.0-0.1 [facility] CampusAbsolute Immature Granulocyte (auto 2019-12-01 15:00:00* Test Item Value Reference Range Interpretation Comments Absolute Immature Granulocyte (auto (inocente t code = Absolute Immature Granulocyte (auto) 0.25 0-0.1 H [facility] CampusCT ABDOMEN/PELVIS SB3950-92-21 14:56:00 [place] [id number] Patient Name: FRANK PERRY MR #: [id number] : 1930 Age/Sex: 89/F Req #: [id number] Adm Physician: Ordered by: LILIANA GARCIA MD Report #: [id number] Location: ER Room/Bed: Procedure: [id number] CT/CT ABDOMEN/PELVIS WO Exam Date: Exam Time: [...] 5778-6) YELLOW YELLOW [facility] CampusUrine deujfvy4823-69-52 14:26:00* Test Item Value Reference Range Interpretation Comments Urine Clarity (test code = 99037-3) CLEAR CLEAR [facility] gravity of Urine by Test strip 2019-12-01 14:26:00* Test Item Value Reference Range Interpretation Comments Urine Specific [place] (test code = 5811-5) 1.020 1.010-1.02 5 [facility] CampusUrine pH measurement by automated test poccl7998-32-60 14:26:00* Test Item Value Reference Range Interpretation Comments Urine pH (test code = 50322-9) 7.5 5-7 [facility] CampusUrine leukocyte esterase detection by czmnwrkn9729-11-77 14:26:00* Test Item Value Reference Range Interpretation Comments Urine Leukocyte Esterase (test code = 5799-2) NEGATIVE NEGATIVE [facility] CampusUrine nitrite dckrmhkrs7703-21-28 14:26:00* Test Item Value Reference Range Interpretation Comments Urine Nitrite (test code = 49005-0) NEGATIVE NEGATIVE [facility] CampusUrine protein measurement by test strip (mass/volume)2019-12-01 14:26:00* Test Item Value Reference Range Interpretation Comments Urine Protein (test code = 5804-0) NEGATIVE NEGATIVE [facility] CampusUrine glucose pvoakhwps9994-11-42 14:26:00* Test Item Value Reference Range Interpretation Comments Urine Glucose (UA) (test code = 2349-9) NEGATIVE NEGATIVE [facility] CampusUrine ketones detection by automated test ekida6710-63-78 14:26:00* Test Item Value Reference Range Interpretation Comments Urine Ketones (test code = 43969-6) NEGATIVE NEGATIVE [facility] CampusUrine urobilinogen measurement by test strip (mass/volume)2019-12-01 14:26:00* Test Item Value Reference Range Interpretation Comments Urine Urobilinogen (test code = 56896-0) 0.2 0.2-1 [facility] CampusUrine total bilirubin measurement (mass/volume)2019-12-01 14:26:00* Test Item Value Reference Range Interpretation Comments Urine Bilirubin (test code = 1978-6) NEGATIVE NEGATIVE [facility] CampusUrine erythrocytes rhejozwae2967-18-09 14:26:00* Test Item Value Reference Range Interpretation Comments Urine Blood (test code = 19188-2) NEGATIVE NEGATIVE [facility] CampusAutomated urine sediment leukocyte count by microscopy (number/high power field)2019-12-01 14:26:00* Test Item Value Reference Range Interpretation Comments Urine WBC (test code = 5821-4) 0-5 0-5 [facility] CampusErythrocytes detection in urine sediment by light adgecvtbgv0292-66-97 14:26:00* Test Item Value Reference Range Interpretation Comments Urine RBC (test code = 01292-5) 0-5 0-5 [facility] CampusBacteria detection in urine sediment by light jkrowcpzli3225-87-90 14:26:00* Test Item Value Reference Range Interpretation Comments Urine Bacteria (test code = 68552-1) RARE NONE [facility] CampusEpithelial cells detection in urine sediment by light ftnswwoene6011-79-77 14:26:00* Test Item Value Reference Range Interpretation Comments Urine Epithelial Cells (test code = 51353-7) RARE NONE [facility] CampusUrine color xrqlloiypoixr6744-04-16 14:26:00* Test Item Value Reference Range Interpretation Comments Urine Color (test code = 5778-6) YELLOW YELLOW [facility] CampusUrine nzqzzpq7474-64-81 14:26:00* Test Item Value Reference Range Interpretation Comments Urine Clarity (test code = 86825-9) CLEAR CLEAR [facility] gravity of Urine by Test strip 2019-12-01 14:26:00* Test Item Value Reference Range Interpretation Comments Urine Specific [place] (test code = 5811-5) 1.020 1.010-1.02 5 [facility] CampusUrine pH measurement by automated test otyyw9547-09-22 14:26:00* Test Item Value Reference Range Interpretation Comments Urine pH (test code = 10779-1) 7.5 5-7 [facility] CampusUrine leukocyte esterase detection by zecktfon5916-79-97 14:26:00* Test Item Value Reference Range Interpretation Comments Urine Leukocyte Esterase (test code = 5799-2) NEGATIVE NEGATIVE [facility] CampusUrine nitrite mtvpluehd1649-02-19 14:26:00* Test Item Value Reference Range Interpretation Comments Urine Nitrite (test code = 87743-1) NEGATIVE NEGATIVE [facility] CampusUrine protein measurement by test strip (mass/volume)2019-12-01 14:26:00* Test Item Value Reference Range Interpretation Comments Urine Protein (test code = 5804-0) NEGATIVE NEGATIVE [facility] CampusUrine glucose hfeyfzuet8459-98-71 14:26:00* Test Item Value Reference Range Interpretation Comments Urine Glucose (UA) (test code = 2349-9) NEGATIVE NEGATIVE [facility] CampusUrine ketones detection by automated test iefno8944-24-55 14:26:00* Test Item Value Reference Range Interpretation Comments Urine Ketones (test code = 98691-7) NEGATIVE NEGATIVE [facility] CampusUrine urobilinogen measurement by test strip (mass/volume)2019-12-01 14:26:00* Test Item Value Reference Range Interpretation Comments Urine Urobilinogen (test code = 06325-6) 0.2 0.2-1 [facility] CampusUrine total bilirubin measurement (mass/volume)2019-12-01 14:26:00* Test Item Value Reference Range Interpretation Comments Urine Bilirubin (test code = 1978-6) NEGATIVE NEGATIVE [facility] CampusUrine erythrocytes iialxdyam6323-37-47 14:26:00* Test Item Value Reference Range Interpretation Comments Urine Blood (test code = 20355-0) NEGATIVE NEGATIVE [facility] CampusAutomated urine sediment leukocyte count by microscopy (number/high power field)2019-12-01 14:26:00* Test Item Value Reference Range Interpretation Comments Urine WBC (test code = 5821-4) 0-5 0-5 [facility] CampusErythrocytes detection in urine sediment by light pnqpifxrch3803-69-58 14:26:00* Test Item Value Reference Range Interpretation Comments Urine RBC (test code = 93303-5) 0-5 0-5 [facility] CampusBacteria detection in urine sediment by light zunfjmxfnk3535-73-18 14:26:00* Test Item Value Reference Range Interpretation Comments Urine Bacteria (test code = 07590-5) RARE NONE [facility] CampusEpithelial cells detection in urine sediment by light jwlmxcrfto3790-46-03 14:26:00* Test Item Value Reference Range Interpretation Comments Urine Epithelial Cells (test code = 59926-1) RARE NONE [facility] CampusFluoroscopic procedure less than one hour mffwqjex9109-78-25 14:23:00* Test Item Value Reference Range Interpretation Comments Differential Total Cells Counted (test code = Kamryn tial Total Cells Counted) 100 [facility]/100 leukocytes 2019-12-01 14:23:00* Test Item Value Reference Range Interpretation Comments Neutrophils % (Manual) (test code = 58752-6) 92 40-74 [facility] blood lymphocytes/100 leukocytes 2019-12-01 14:23:00* Test Item Value Reference Range Interpretation Comments Lymphocytes % (Manual) (test code = 737-7) 7 19-48 [facility] blood monocytes/100 leukocytes 2019-12-01 14:23:00* Test Item Value Reference Range Interpretation Comments Monocytes % (Manual) (test code = 744-3) 1 3.4-9.0 [facility] CampusBlood platelets count by estimate (number/volume)2019-12-01 14:23:00* Test Item Value Reference Range Interpretation Comments Platelet Estimate (test code = 71141-0) ADEQUATE [facility] CampusPlatelet wgadkedbpe6544-14-65 14:23:00* Test Item Value Reference Range Interpretation Comments Platelet Morphology Comment (test code = 92654-0) NORMAL [facility] CampusRBC ddtywwzhtd3847-52-01 14:23:00* Test Item Value Reference Range Interpretation Comments Red Cell Morphology Comment (test code = 6742-1) NORMAL [facility] CampusProthrombin time (PT) in platelet poor plasma by coagulation wtker8737-45-91 14:23:00* Test Item Value Reference Range Interpretation Comments Prothrombin Time (test code = 5902-2) 12.3 11.9-14.5 [facility] CampusINR in Platelet poor plasma by Coagulation tfgod7149-15-90 14:23:00* Test Item Value Reference Range Interpretation Comments Prothromb Time International Ratio (test code = 6301-6) 0.87 Oral Anticoagulant Therapy INR Values:1. Low Intensity Therapy 1.5 - 2.02 . Moderate Intensity Therapy 2.0 - 3.03. High Intensity Therapy(1) 2.5 - 3. 54. High Intensity Therapy(2) 3.0 - 4.05. Panic Value INR > 5.0 [facility] CampusActivated partial thromboplastin time (aPTT) in platelet poor plasma by coagulation zkxch3163-83-46 14:23:00* Test Item Value Reference Range Interpretation Comments Activated Partial Thromboplast Time (test code = 97691-0) 26.9 23.8-35.5 [facility] or plasma sodium measurement (moles/volume)2019-12-01 14:23:00* Test Item Value Reference Range Interpretation Comments Sodium Level (test code = 2951-2) 132 136-145 [facility] Pasoerum or plasma potassium measurement (moles/volume)2019-12-01 14:23:00* Test Item Value Reference Range Interpretation Comments Potassium Level (test code = 2823-3) 4.2 3.5-5.1 [facility] Pasoerum or plasma chloride measurement (moles/volume)2019-12-01 14:23:00* Test Item Value Reference Range Interpretation Comments Chloride Level (test code = 2075-0) 96 98-107 [facility]erum or plasma carbon dioxide, total measurement (moles/volume)2019-12-01 14:23:00* Test Item Value Reference Range Interpretation Comments Carbon Dioxide Level (test code = 2028-9) 27 22-29 [facility] Pasoerum or plasma anion xbi9584-85-58 14:23:00* Test Item Value Reference Range Interpretation Comments Anion Gap (test code = 54472-4) 13.2 8-16 [facility]um or plasma urea nitrogen measurement (mass/volume)2019-12-01 14:23:00* Test Item Value Reference Range Interpretation Comments Blood Urea Nitrogen (test code = 3094-0) 17 7-26 [facility]erum or plasma creatinine measurement (mass/volume)2019-12-01 14:23:00* Test Item Value Reference Range Interpretation Comments Creatinine (test code = 2160-0) 0.98 0.57-1.11 [facility]um or plasma urea nitrogen/creatinine mass gztxh4628-44-58 14:23:00* Test Item Value Reference Range Interpretation Comments BUN/Creatinine Ratio (test code = 3097-3) 17 6- [facility] CampusEstimated glomerular filtration rate (GFR) sptihaaoddxya1228-22-24 14:23:00* Test Item Value Reference Range Interpretation Comments Estimat Glomerular Filtration Rate (test code = 151688530) 54 >60 Ranges were taken from the National Kidney Disease Education Program and the [facility] [employer] literature.Reference ranges:60 or greater: Qkdlhm21-38 ( for 3 consecutive months): Chronic kidney disease 15 or less: Kidney failureThe Hospitals of [facility] CampusGlucose mhucetyjzud5218-82-19 14:23:00* Test Item Value Reference Range Interpretation Comments Glucose Level (test code = BLA4633) 113 74-118 [facility]um or plasma calcium measurement (mass/volume)2019-12-01 14:23:00* Test Item Value Reference Range Interpretation Comments Calcium Level (test code = 91254-0) 10.2 8.4-10.2 [facility] Pasoerum or plasma magnesium measurement (mass/volume)2019-12-01 14:23:00* Test Item Value Reference Range Interpretation Comments Magnesium Level (test code = 95718-8) 2.2 1.3-2.1 [facility]um or plasma total bilirubin measurement (mass/volume)2019-12-01 14:23:00* Test Item Value Reference Range Interpretation Comments Total Bilirubin (test code = 1975-2) 0.4 0.2-1.2 [facility] CampusFluoroscopic procedure less than one hour jkdiejfg7163-33-73 14:23:00* Test Item Value Reference Range Interpretation Comments Aspartate Amino Transf (AST/SGOT) (test code = Aspartate Amino Transf (AST/SGOT)) 24 5-34 [facility]um or plasma alanine aminotransferase measurement (enzymatic activity/volume)2019-12-01 14:23:00* Test Item Value Reference Range Interpretation Comments Alanine Aminotransferase (ALT/SGPT) (test code = 1742-6) 25 0-55 [facility]erum or plasma protein measurement (mass/volume)2019-12-01 14:23:00* Test Item Value Reference Range Interpretation Comments Total Protein (test code = 2885-2) 8.5 6.5-8.1 [facility]erum or plasma albumin measurement (mass/volume)2019-12-01 14:23:00* Test Item Value Reference Range Interpretation Comments Albumin (test code = 1751-7) 4.7 3.5-5.0 [facility] CampusPlasma globulin measurement (mass/volume) 2019-12-01 14:23:00* Test Item Value Reference Range Interpretation Comments Globulin (test code = 62719-7) 3.8 2.3-3.5 [facility]erum or plasma albumin/globulin mass khxov2049-20-66 14:23:00* Test Item Value Reference Range Interpretation Comments Albumin/Globulin Ratio (test code = 1759-0) 1.2 0.8-2.0 [facility]erum or plasma alkaline phosphatase measurement (enzymatic activity/volume)2019-12-01 14:23:00* Test Item Value Reference Range Interpretation Comments Alkaline Phosphatase (test code = 6768-6) 97 40-150 [facility] CampusBNP Drj-wRxs6477-06-15 14:23:00* Test Item Value Reference Range Interpretation Comments B-Type Natriuretic Peptide (test code = 99430-5) 148.2 0-100 [facility]um or plasma creatine kinase measurement (enzymatic activity/volume)2019-12-01 14:23:00* Test Item Value Reference Range Interpretation Comments Creatine Kinase (test code = 2157-6) 54 29-168 [facility] Pasoerum or plasma creatine kinase MB measurement (mass/volume)2019-12-01 14:23:00* Test Item Value Reference Range Interpretation Comments Creatine Kinase MB (test code = 19965-6) 3.80 0-5.0 [facility] CampusTroponin I measurement by highly sensitive enzyme imergrfrkkt0983-12-92 14:23:00* Test Item Value Reference Range Interpretation Comments Troponin I (test code = 77155-8) 0.014 0-0.300 [facility] or plasma lipase measurement (enzymatic activity/volume)2019-12-01 14:23:00* Test Item Value Reference Range Interpretation Comments Lipase (test code = 3040-3) 35 8-78 [facility] CampusFluoroscopic procedure less than one hour fzzxvvkp3804-43-25 14:23:00* Test Item Value Reference Range Interpretation Comments Differential Total Cells Counted (test code = Kamryn tial Total Cells Counted) 100 [facility] blood neutrophils/100 leukocytes 2019-12-01 14:23:00* Test Item Value Reference Range Interpretation Comments Neutrophils % (Manual) (test code = 79834-2) 92 40-74 [facility] blood lymphocytes/100 leukocytes 2019-12-01 14:23:00* Test Item Value Reference Range Interpretation Comments Lymphocytes % (Manual) (test code = 737-7) 7 19-48 [facility] blood monocytes/100 leukocytes 2019-12-01 14:23:00* Test Item Value Reference Range Interpretation Comments Monocytes % (Manual) (test code = 744-3) 1 3.4-9.0 [facility] CampusBlood platelets count by estimate (number/volume)2019-12-01 14:23:00* Test Item Value Reference Range Interpretation Comments Platelet Estimate (test code = 83963-1) ADEQUATE [facility] CampusPlatelet zdzgbrmics9999-33-40 14:23:00* Test Item Value Reference Range Interpretation Comments Platelet Morphology Comment (test code = 35570-4) NORMAL [facility] CampusRBC anlbysmdbh8560-27-72 14:23:00* Test Item Value Reference Range Interpretation Comments Red Cell Morphology Comment (test code = 6742-1) NORMAL [facility] CampusProthrombin time (PT) in platelet poor plasma by coagulation vnrrv2674-29-49 14:23:00* Test Item Value Reference Range Interpretation Comments Prothrombin Time (test code = 5902-2) 12.3 11.9-14.5 [facility] CampusINR in Platelet poor plasma by Coagulation lhmkl9194-64-54 14:23:00* Test Item Value Reference Range Interpretation Comments Prothromb Time International Ratio (test code = 6301-6) 0.87 Oral Anticoagulant Therapy INR Values:1. Low Intensity Therapy 1.5 - 2.02 . Moderate Intensity Therapy 2.0 - 3.03. High Intensity Therapy(1) 2.5 - 3. 54. High Intensity Therapy(2) 3.0 - 4.05. Panic Value INR > 5.0 [facility] CampusActivated partial thromboplastin time (aPTT) in platelet poor plasma by coagulation prnxl8774-86-54 14:23:00* Test Item Value Reference Range Interpretation Comments Activated Partial Thromboplast Time (test code = 83989-2) 26.9 23.8-35.5 [facility]erum or plasma sodium measurement (moles/volume)2019-12-01 14:23:00* Test Item Value Reference Range Interpretation Comments Sodium Level (test code = 2951-2) 132 136-145 [facility]erum or plasma potassium measurement (moles/volume)2019-12-01 14:23:00* Test Item Value Reference Range Interpretation Comments Potassium Level (test code = 2823-3) 4.2 3.5-5.1 [facility]um or plasma chloride measurement (moles/volume)2019-12-01 14:23:00* Test Item Value Reference Range Interpretation Comments Chloride Level (test code = 2075-0) 96 98-107 [facility]erum or plasma carbon dioxide, total measurement (moles/volume)2019-12-01 14:23:00* Test Item Value Reference Range Interpretation Comments Carbon Dioxide Level (test code = 2028-9) 27 22-29 [facility]erum or plasma anion gey2161-17-05 14:23:00* Test Item Value Reference Range Interpretation Comments Anion Gap (test code = 30475-1) 13.2 8-16 [facility]erum or plasma urea nitrogen measurement (mass/volume)2019-12-01 14:23:00* Test Item Value Reference Range Interpretation Comments Blood Urea Nitrogen (test code = 3094-0) 17 7-26 [facility]erum or plasma creatinine measurement (mass/volume)2019-12-01 14:23:00* Test Item Value Reference Range Interpretation Comments Creatinine (test code = 2160-0) 0.98 0.57-1.11 [facility]erum or plasma urea nitrogen/creatinine mass ryhqy3658-43-80 14:23:00* Test Item Value Reference Range Interpretation Comments BUN/Creatinine Ratio (test code = 3097-3) 17 6-25 [facility] CampusEstimated glomerular filtration rate (GFR) lbhtgaabeycct3196-08-13 14:23:00* Test Item Value Reference Range Interpretation Comments Estimat Glomerular Filtration Rate (test code = 559250191) 54 >60 Ranges were taken from the National Kidney Disease Education Program and the [facility] Foundation literature.Reference ranges:60 or greater: Tymkqh86-91 ( for 3 consecutive months): Chronic kidney disease 15 or less: Kidney failureThe Hospitals of [facility] CampusGlucose rlaipgrajgc5937-77-08 14:23:00* Test Item Value Reference Range Interpretation Comments Glucose Level (test code = HXB7158) 113 74-118 [facility] or plasma calcium measurement (mass/volume)2019-12-01 14:23:00* Test Item Value Reference Range Interpretation Comments Calcium Level (test code = 39321-2) 10.2 8.4-10.2 [facility]um or plasma magnesium measurement (mass/volume)2019-12-01 14:23:00* Test Item Value Reference Range Interpretation Comments Magnesium Level (test code = 48996-0) 2.2 1.3-2.1 [facility]um or plasma total bilirubin measurement (mass/volume)2019-12-01 14:23:00* Test Item Value Reference Range Interpretation Comments Total Bilirubin (test code = 1975-2) 0.4 0.2-1.2 [facility] CampusFluoroscopic procedure less than one hour ssfhlold7435-33-00 14:23:00* Test Item Value Reference Range Interpretation Comments Aspartate Amino Transf (AST/SGOT) (test code = Aspartate Amino Transf (AST/SGOT)) 24 5-34 [facility]um or plasma alanine aminotransferase measurement (enzymatic activity/volume)2019-12-01 14:23:00* Test Item Value Reference Range Interpretation Comments Alanine Aminotransferase (ALT/SGPT) (test code = 1742-6) 25 0-55 [facility]erum or plasma protein measurement (mass/volume)2019-12-01 14:23:00* Test Item Value Reference Range Interpretation Comments Total Protein (test code = 2885-2) 8.5 6.5-8.1 [facility]um or plasma albumin measurement (mass/volume)2019-12-01 14:23:00* Test Item Value Reference Range Interpretation Comments Albumin (test code = 1751-7) 4.7 3.5-5.0 [facility] CampusPlasma globulin measurement (mass/volume) 2019-12-01 14:23:00* Test Item Value Reference Range Interpretation Comments Globulin (test code = 93436-1) 3.8 2.3-3.5 [facility]erum or plasma albumin/globulin mass jlksk2834-46-96 14:23:00* Test Item Value Reference Range Interpretation Comments Albumin/Globulin Ratio (test code = 1759-0) 1.2 0.8-2.0 [facility] or plasma alkaline phosphatase measurement (enzymatic activity/volume)2019-12-01 14:23:00* Test Item Value Reference Range Interpretation Comments Alkaline Phosphatase (test code = 6768-6) 97 40-150 [facility] CampusBNP Gyv-vSwg2972-75-15 14:23:00* Test Item Value Reference Range Interpretation Comments B-Type Natriuretic Peptide (test code = 08927-1) 148.2 0-100 [facility]um or plasma creatine kinase measurement (enzymatic activity/volume)2019-12-01 14:23:00* Test Item Value Reference Range Interpretation Comments Creatine Kinase (test code = 2157-6) 54 29-168 [facility]erum or plasma creatine kinase MB measurement (mass/volume)2019-12-01 14:23:00* Test Item Value Reference Range Interpretation Comments Creatine Kinase MB (test code = 80151-5) 3.80 0-5.0 [facility] CampusTroponin I measurement by highly sensitive enzyme izwajywuaum1645-27-02 14:23:00* Test Item Value Reference Range Interpretation Comments Troponin I (test code = 35524-5) 0.014 0-0.300 [facility]um or plasma lipase measurement (enzymatic activity/volume)2019-12-01 14:23:00* Test Item Value Reference Range Interpretation Comments Lipase (test code = 3040-3) 35 8-78 [facility] CampusCHEST 2 UDZQE8938-92-18 12:06:00 [facility] [address] [place] [address] Patient Name: FRANK PERRY MR #: [id number] : 1930 Age/Sex: 89/F Req #: [id number] Adm Physician: Ordered by: LILIANA GARCIA MD Report #: [id number] Location: ER Room/Bed: Procedure: [id number] DX/CH EST 2 VIEWS Exam Date: 11/30/19 [...] 12:09 PM Dictated By: ASHER KINNEY MD 120 Transcribed By: ROLO on 1208 COPY TO: LILIANA GARCIA MD B-Type Natriuretic Peptide 2019-11-30 11:04:00* Test Item Value Reference Range Interpretation Comments B-Type Natriuretic Peptide (test code = 07604-6) 382.2 0-100 H [facility] CampusB-Type Natriuretic Hlqmmfv8100-65-74 11:04:00* Test Item Value Reference Range Interpretation Comments B-Type Natriuretic Peptide (test code = 32025-0) 382.2 0-100 H [facility] CampusCreatine Kinase EW6846-34-56 11:03:00* Test Item Value Reference Range Interpretation Comments Creatine Kinase MB (test code = 68768-9) 4.30 0-5.0 [facility] CampusTroponin S2127-64-76 11:03:00* Test Item Value Reference Range Interpretation Comments Troponin I (test code = QNP8324) 0.010 0-0.300 [facility] CampusProthrombin Vjzm3454-07-70 10:57:00* Test Item Value Reference Range Interpretation Comments Prothrombin Time (test code = 5902-2) 12.4 11.9-14.5 [facility] CampusProthromb Time International Ratio 2019-11-30 10:57:00* Test Item Value Reference Range Interpretation Comments Prothromb Time International Ratio (test code = 6301-6) 0.88 Oral Anticoagulant Therapy INR Values:1. Low Intensity Therapy 1.5 - 2.02 . Moderate Intensity Therapy 2.0 - 3.03. High Intensity Therapy(1) 2.5 - 3. 54. High Intensity Therapy(2) 3.0 - 4.05. Panic Value INR > 5.0 [facility] CampusActivated Partial Thromboplast Time 2019-11-30 10:57:00* Test Item Value Reference Range Interpretation Comments Activated Partial Thromboplast Time (test code = 59122-7) 26.4 23.8-35.5 [facility] Pasoodium Bvqnn1599-77-93 10:57:00* Test Item Value Reference Range Interpretation Comments Sodium Level (test code = 2951-2) 131 136-145 L [facility] CampusPotassium Mlqtj7025-86-09 10:57:00* Test Item Value Reference Range Interpretation Comments Potassium Level (test code = 2823-3) 4.3 3.5-5.1 [facility] CampusChloride Mckbt3956-53-63 10:57:00* Test Item Value Reference Range Interpretation Comments Chloride Level (test code = 2075-0) 97 98-107 L [facility] CampusCarbon Dioxide Oivuq3387-30-87 10:57:00* Test Item Value Reference Range Interpretation Comments Carbon Dioxide Level (test code = 2028-9) 28 22-29 [facility] CampusAnion Vqg7694-54-71 10:57:00* Test Item Value Reference Range Interpretation Comments Anion Gap (test code = 75827-3) 10.3 8-16 [facility] CampusBlood Urea Rgchgnuj7188-45-76 10:57:00* Test Item Value Reference Range Interpretation Comments Blood Urea Nitrogen (test code = 3094-0) 18 7-26 [facility] CampusCreatinine2020-03-14 10:57:00* Test Item Value Reference Range Interpretation Comments Creatinine (test code = 2160-0) 1.00 0.57-1.11 [facility] CampusBUN/Creatinine Qsocd1948-12-86 10:57:00* Test Item Value Reference Range Interpretation Comments BUN/Creatinine Ratio (test code = 3097-3) 18 6-25 [facility] CampusEstimat Glomerular Filtration Rate 2019-11-30 10:57:00* Test Item Value Reference Range Interpretation Comments Estimat Glomerular Filtration Rate (test code = 397078923) 52 >60 L Ranges were taken from the National Kidney Disease Education Program and the [facility] Kidney Foundation literature.Reference ranges:60 or greater: Hdetmt47-59 ( for 3 consecutive months): Chronic kidney disease 15 or less: Kidney failureThe Hospitals of [facility] CampusGlucose Gyfvp1729-19-68 10:57:00* Test Item Value Reference Range Interpretation Comments Glucose Level (test code = QAP5133) 94 74-118 [facility] CampusCalcium Westw1143-19-35 10:57:00* Test Item Value Reference Range Interpretation Comments Calcium Level (test code = 53448-4) 10.1 8.4-10.2 [facility] CampusMagnesium Nelkr8362-96-23 10:57:00* Test Item Value Reference Range Interpretation Comments Magnesium Level (test code = 77880-5) 2.1 1.3-2.1 [facility] CampusTotal Plyppgtmc3532-18-40 10:57:00* Test Item Value Reference Range Interpretation Comments Total Bilirubin (test code = 1975-2) 0.4 0.2-1.2 [facility] CampusAspartate Amino Transf (AST/SGOT) 2019-11-30 10:57:00* Test Item Value Reference Range Interpretation Comments Aspartate Amino Transf (AST/SGOT) (test code = Aspartate Amino Transf (AST/SGOT)) 22 5-34 [facility] CampusAlanine Aminotransferase (ALT/SGPT) 2019-11-30 10:57:00* Test Item Value Reference Range Interpretation Comments Alanine Aminotransferase (ALT/SGPT) (test code = 1742-6) 18 0-55 [facility] CampusTotal Euuwyil0439-51-16 10:57:00* Test Item Value Reference Range Interpretation Comments Total Protein (test code = 2885-2) 7.4 6.5-8.1 [facility] CampusAlbumin2020-03-14 10:57:00* Test Item Value Reference Range Interpretation Comments Albumin (test code = 1751-7) 4.2 3.5-5.0 [facility] CampusGlobulin2020-03-14 10:57:00* Test Item Value Reference Range Interpretation Comments Globulin (test code = 88694-9) 3.2 2.3-3.5 [facility] CampusAlbumin/Globulin Ndxsw3395-47-74 10:57:00 * Test Item Value Reference Range Interpretation Comments Albumin/Globulin Ratio (test code = 1759-0) 1.3 0.8-2.0 [facility] CampusAlkaline Bnwfzzbhoet9265-47-87 10:57:00* Test Item Value Reference Range Interpretation Comments Alkaline Phosphatase (test code = 6768-6) 79 40-150 [facility] CampusCreatine Whyqjg0149-24-70 10:57:00* Test Item Value Reference Range Interpretation Comments Creatine Kinase (test code = 2157-6) 77 29-168 [facility] CampusUrine MIL0000-15-99 10:56:00* Test Item Value Reference Range Interpretation Comments Urine WBC (test code = 5821-4) 11-20 0-5 H [facility] CampusUrine OEB4183-32-31 10:56:00* Test Item Value Reference Range Interpretation Comments Urine RBC (test code = 88929-6) 6-10 0-5 H [facility] CampusUrine Hbjomhpx3763-18-10 10:56:00* Test Item Value Reference Range Interpretation Comments Urine Bacteria (test code = 04488-0) RARE NONE [facility] CampusUrine Epithelial Wggav6218-07-77 10:56:00 * Test Item Value Reference Range Interpretation Comments Urine Epithelial Cells (test code = 67553-8) FEW NONE [facility] CampusCT BRAIN YQ7673-51-57 10:53:00 [facility] [address] [address] Patient Name: FRANK PERRY MR #: [id number] : 1930 Age/Sex: 89/F Req #: [id number] Adm Physician: Ordered by: LILIANA GARCIA MD Report #: [id number] Location: ER Room/Bed: Procedure: [id number] CT/CT BRAIN WO Exam Date: 11/30/19 Exam [...] on 11/30/2019 10:56 AM D ictated By: JAILNY STEPHENS MD 56 Transcribed By: ORLO on 11/30/191055 COPY TO: LILIANA GARCIA MD Urine Pfzno3638-09-20 10:45:00* Test Item Value Reference Range Interpretation Comments Urine Color (test code = 5778-6) YELLOW YELLOW [facility] CampusUrine Zbvqzpt7642-75-12 10:45:00* Test Item Value Reference Range Interpretation Comments Urine Clarity (test code = 18081-8) CLEAR CLEAR [facility] CampusUrine Specific Ewsnkbz1361-08-16 10:45:00 * Test Item Value Reference Range Interpretation Comments Urine Specific [place] (test code = 5811-5) 1.025 1.010-1.02 5 [facility] CampusUrine rT2119-94-14 10:45:00* Test Item Value Reference Range Interpretation Comments Urine pH (test code = 65282-2) 7 5-7 [facility] CampusUrine Leukocyte Bhkzjpnc2763-64-92 10:45:00* Test Item Value Reference Range Interpretation Comments Urine Leukocyte Esterase (test code = 5799-2) TRACE NEGATIVE H [facility] CampusUrine Jmohzth4417-18-12 10:45:00* Test Item Value Reference Range Interpretation Comments Urine Nitrite (test code = 91065-2) NEGATIVE NEGATIVE [facility] CampusUrine Xiaocqv5518-20-68 10:45:00* Test Item Value Reference Range Interpretation Comments Urine Protein (test code = 5804-0) NEGATIVE NEGATIVE [facility] CampusUrine Glucose (UA)2019-11-30 10:45:00* Test Item Value Reference Range Interpretation Comments Urine Glucose (UA) (test code = 2349-9) NEGATIVE NEGATIVE [facility] CampusUrine Laljxmf9986-23-51 10:45:00* Test Item Value Reference Range Interpretation Comments Urine Ketones (test code = 91639-1) NEGATIVE NEGATIVE [facility] CampusUrine Fqkawjjrtzeq2901-94-68 10:45:00* Test Item Value Reference Range Interpretation Comments Urine Urobilinogen (test code = 76821-0) 0.2 0.2-1 [facility] CampusUrine Hdjelijnw5013-18-19 10:45:00* Test Item Value Reference Range Interpretation Comments Urine Bilirubin (test code = 1978-6) NEGATIVE NEGATIVE [facility] CampusUrine Mwxfk8771-07-87 10:45:00* Test Item Value Reference Range Interpretation Comments Urine Blood (test code = 29857-1) TRACE NEGATIVE H [facility] CampusWhite Blood Mnyxo9262-38-39 10:41:00* Test Item Value Reference Range Interpretation Comments White Blood Count (test code = 6690-2) 13.01 4.8-10.8 H [facility] CampusRed Blood Gepxf1316-53-60 10:41:00* Test Item Value Reference Range Interpretation Comments Red Blood Count (test code = 789-8) 4.45 3.6-5.1 [facility] CampusHemoglobin2020-03-14 10:41:00* Test Item Value Reference Range Interpretation Comments Hemoglobin (test code = 82819-0) 13.4 12.0-16.0 [facility] CampusHematocrit2020-03-14 10:41:00* Test Item Value Reference Range Interpretation Comments Hematocrit (test code = 4544-3) 39.9 34.2-44.1 [facility] CampusMean Corpuscular Sqdpku2144-97-02 10:41:00* Test Item Value Reference Range Interpretation Comments Mean Corpuscular Volume (test code = 787-2) 89.7 81-99 [facility] CampusMean Corpuscular Vbqfmvgkcs9887-41-63 10:41:00* Test Item Value Reference Range Interpretation Comments Mean Corpuscular Hemoglobin (test code = 785-6) 30.1 28-32 [facility] CampusMean Corpuscular Hemoglobin Concent 2019-11-30 10:41:00* Test Item Value Reference Range Interpretation Comments Mean Corpuscular Hemoglobin Concent (test code = 786-4) 33.6 31-35 [facility] CampusRed Cell Distribution Fpqkc8865-02-29 10:41:00* Test Item Value Reference Range Interpretation Comments Red Cell Distribution Width (test code = 96719-7) 13.1 11.7 -14.4 [facility] CampusPlatelet Yjemx0697-81-18 10:41:00* Test Item Value Reference Range Interpretation Comments Platelet Count (test code = 777-3) 257 140-360 [facility] CampusNeutrophils (%) (Auto)2019-11-30 10:41:00 * Test Item Value Reference Range Interpretation Comments Neutrophils (%) (Auto) (test code = 92478-5) 87.3 38.7-80.0 H [facility] CampusLymphocytes (%) (Auto)2019-11-30 10:41:00 * Test Item Value Reference Range Interpretation Comments Lymphocytes (%) (Auto) (test code = 736-9) 6.7 18.0-39.1 L [facility] CampusMonocytes (%) (Auto)2019-11-30 10:41:00* Test Item Value Reference Range Interpretation Comments Monocytes (%) (Auto) (test code = 5905-5) 5.1 4.4-11.3 [facility] CampusEosinophils (%) (Auto)2019-11-30 10:41:00 * Test Item Value Reference Range Interpretation Comments Eosinophils (%) (Auto) (test code = 713-8) 0.0 0.0-6.0 [facility] CampusBasophils (%) (Auto)2019-11-30 10:41:00* Test Item Value Reference Range Interpretation Comments Basophils (%) (Auto) (test code = 706-2) 0.1 0.0-1.0 [facility] CampusIM GRANULOCYTES %2019-11-30 10:41:00* Test Item Value Reference Range Interpretation Comments IM GRANULOCYTES % (test code = IM GRANULOCYTES %) 0.8 0.0- 1.0 [facility] CampusNeutrophils # (Auto)2019-11-30 10:41:00* Test Item Value Reference Range Interpretation Comments Neutrophils # (Auto) (test code = 751-8) 11.4 2.1-6.9 H [facility] CampusLymphocytes # (Auto)2019-11-30 10:41:00* Test Item Value Reference Range Interpretation Comments Lymphocytes # (Auto) (test code = 79600-0) 0.9 1.0-3.2 L [facility] CampusMonocytes # (Auto)2019-11-30 10:41:00* Test Item Value Reference Range Interpretation Comments Monocytes # (Auto) (test code = 742-7) 0.7 0.2-0.8 [facility] CampusEosinophils # (Auto)2019-11-30 10:41:00* Test Item Value Reference Range Interpretation Comments Eosinophils # (Auto) (test code = 711-2) 0.0 0.0-0.4 [facility] CampusBasophils # (Auto)2019-11-30 10:41:00* Test Item Value Reference Range Interpretation Comments Basophils # (Auto) (test code = 704-7) 0.0 0.0-0.1 [facility] CampusAbsolute Immature Granulocyte (auto 2019-11-30 10:41:00* Test Item Value Reference Range Interpretation Comments Absolute Immature Granulocyte (auto (inocente t code = Absolute Immature Granulocyte (auto) 0.11 0-0.1 H [facility] CampusUrine Iucjoml6682-29-71 09:40:00* Test Item Value Reference Range Interpretation Comments Urine Culture (test code = 630-4) No Result Data Provided [facility] CampusUrine Wbaluyn4658-86-87 09:40:00* Test Item Value Reference Range Interpretation Comments Urine Culture (test code = 630-4) No Result Data Provided [facility] CampusCreatine Kinase UL0575-99-35 15:26:00* Test Item Value Reference Range Interpretation Comments Creatine Kinase MB (test code = 28636-6) 3.70 0-5.0 [facility] CampusTroponin Z6267-56-32 15:26:00* Test Item Value Reference Range Interpretation Comments Troponin I (test code = WTE3251) 0.017 0-0.300 [facility] Tpvuc4830-42-19 14:52:00* Test Item Value Reference Range Interpretation Comments Sodium Level (test code = 2951-2) 135 136-145 L [facility] CampusPotassium Kvbiv1451-60-70 14:52:00* Test Item Value Reference Range Interpretation Comments Potassium Level (test code = 2823-3) 4.1 3.5-5.1 [facility] CampusChloride Vtngd0528-82-45 14:52:00* Test Item Value Reference Range Interpretation Comments Chloride Level (test code = 2075-0) 97 98-107 L [facility] CampusCarbon Dioxide Yiwen9185-71-12 14:52:00* Test Item Value Reference Range Interpretation Comments Carbon Dioxide Level (test code = 2028-9) 27 22-29 [facility] CampusAnion Btg7178-79-23 14:52:00* Test Item Value Reference Range Interpretation Comments Anion Gap (test code = 96388-0) 15.1 8-16 [facility] CampusBlood Urea Ucwzrvdl1229-89-00 14:52:00* Test Item Value Reference Range Interpretation Comments Blood Urea Nitrogen (test code = 3094-0) 16 7-26 [facility] CampusCreatinine2020-01-31 14:52:00* Test Item Value Reference Range Interpretation Comments Creatinine (test code = 2160-0) 0.89 0.57-1.11 [facility] CampusBUN/Creatinine Xvdjm9890-54-81 14:52:00* Test Item Value Reference Range Interpretation Comments BUN/Creatinine Ratio (test code = 3097-3) 18 6-25 [facility] CampusEstimat Glomerular Filtration Rate 2019-10-18 14:52:00* Test Item Value Reference Range Interpretation Comments Estimat Glomerular Filtration Rate (test code = 788703382) 60 >60 Ranges were taken from the National Kidney Disease Education Program and the [facility] Kid[facility] [employer] literature.Reference ranges:60 or greater: Hhgmop87-65 ( for 3 consecutive months): Chronic kidney disease 15 or less: Kidney failureThe Hospitals of Providence [facility] CampusGlucose Bnhyl4834-51-90 14:52:00* Test Item Value Reference Range Interpretation Comments Glucose Level (test code = QUN2883) 101 74-118 [facility] CampusCalcium Ipmxk6236-69-70 14:52:00* Test Item Value Reference Range Interpretation Comments Calcium Level (test code = 83588-9) 10.1 8.4-10.2 [facility] CampusMagnesium Fdfdy7991-69-82 14:52:00* Test Item Value Reference Range Interpretation Comments Magnesium Level (test code = 34349-2) 2.0 1.3-2.1 [facility] CampusTotal Hyaktlwwl6627-20-48 14:52:00* Test Item Value Reference Range Interpretation Comments Total Bilirubin (test code = 1975-2) 0.4 0.2-1.2 [facility] CampusAspartate Amino Transf (AST/SGOT) 2019-10-18 14:52:00* Test Item Value Reference Range Interpretation Comments Aspartate Amino Transf (AST/SGOT) (test code = Aspartate Amino Transf (AST/SGOT)) 19 5-34 [facility] CampusAlanine Aminotransferase (ALT/SGPT) 2019-10-18 14:52:00* Test Item Value Reference Range Interpretation Comments Alanine Aminotransferase (ALT/SGPT) (test code = 1742-6) 16 0-55 [facility] CampusTotal Ovrfvcy2362-33-24 14:52:00* Test Item Value Reference Range Interpretation Comments Total Protein (test code = 2885-2) 7.3 6.5-8.1 [facility] CampusAlbumin2020-01-31 14:52:00* Test Item Value Reference Range Interpretation Comments Albumin (test code = 1751-7) 3.9 3.5-5.0 [facility] CampusGlobulin2020-01-31 14:52:00* Test Item Value Reference Range Interpretation Comments Globulin (test code = 53259-8) 3.4 2.3-3.5 [facility] CampusAlbumin/Globulin Ivxhg3002-48-90 14:52:00 * Test Item Value Reference Range Interpretation Comments Albumin/Globulin Ratio (test code = 1759-0) 1.1 0.8-2.0 [facility] CampusAlkaline Lgjdqzjbloh5427-82-48 14:52:00* Test Item Value Reference Range Interpretation Comments Alkaline Phosphatase (test code = 6768-6) 88 40-150 [facility] CampusCreatine Xxorhk5578-07-34 14:52:00* Test Item Value Reference Range Interpretation Comments Creatine Kinase (test code = 2157-6) 57 29-168 [facility] CampusProthrombin Hjjj1190-36-11 14:47:00* Test Item Value Reference Range Interpretation Comments Prothrombin Time (test code = 5902-2) 12.3 11.9-14.5 [facility] CampusProthromb Time International Ratio 2019-10-18 14:47:00* Test Item Value Reference Range Interpretation Comments Prothromb Time International Ratio (test code = 6301-6) 0.90 Oral Anticoagulant Therapy INR Values:1. Low Intensity Therapy 1.5 - 2.02 . Moderate Intensity Therapy 2.0 - 3.03. High Intensity Therapy(1) 2.5 - 3. 54. High Intensity Therapy(2) 3.0 - 4.05. Panic Value INR > 5.0 [facility] CampusActivated Partial Thromboplast Time 2019-10-18 14:47:00* Test Item Value Reference Range Interpretation Comments Activated Partial Thromboplast Time (test code = 97860-3) 31.0 23.8-35.5 [facility] CampusWhite Blood Ebtid9999-25-40 14:33:00* Test Item Value Reference Range Interpretation Comments White Blood Count (test code = 6690-2) 8.10 4.8-10.8 [facility] CampusRed Blood Uibgc6096-13-84 14:33:00* Test Item Value Reference Range Interpretation Comments Red Blood Count (test code = 789-8) 4.60 3.6-5.1 [facility] CampusHemoglobin2020-01-31 14:33:00* Test Item Value Reference Range Interpretation Comments Hemoglobin (test code = 96710-9) 13.8 12.0-16.0 [facility] CampusHematocrit2020-01-31 14:33:00* Test Item Value Reference Range Interpretation Comments Hematocrit (test code = 4544-3) 40.9 34.2-44.1 [facility] CampusMean Corpuscular Ougkrb7074-38-69 14:33:00* Test Item Value Reference Range Interpretation Comments Mean Corpuscular Volume (test code = 787-2) 88.9 81-99 [facility] CampusMean Corpuscular Zvgnhzcpme2879-41-02 14:33:00* Test Item Value Reference Range Interpretation Comments Mean Corpuscular Hemoglobin (test code = 785-6) 30.0 28-32 [facility] CampusMean Corpuscular Hemoglobin Concent 2019-10-18 14:33:00* Test Item Value Reference Range Interpretation Comments Mean Corpuscular Hemoglobin Concent (test code = 786-4) 33.7 31-35 [facility] CampusRed Cell Distribution Cyagp4434-56-22 14:33:00* Test Item Value Reference Range Interpretation Comments Red Cell Distribution Width (test code = 06148-1) 12.9 11.7 -14.4 [facility] CampusPlatelet Xrems9066-95-17 14:33:00* Test Item Value Reference Range Interpretation Comments Platelet Count (test code = 777-3) 310 140-360 [facility] CampusNeutrophils (%) (Auto)2019-10-18 14:33:00 * Test Item Value Reference Range Interpretation Comments Neutrophils (%) (Auto) (test code = 83101-8) 66.4 38.7-80.0 [facility] CampusLymphocytes (%) (Auto)2019-10-18 14:33:00 * Test Item Value Reference Range Interpretation Comments Lymphocytes (%) (Auto) (test code = 736-9) 16.8 18.0-39.1 L [facility] CampusMonocytes (%) (Auto)2019-10-18 14:33:00* Test Item Value Reference Range Interpretation Comments Monocytes (%) (Auto) (test code = 5905-5) 7.2 4.4-11.3 [facility] CampusEosinophils (%) (Auto)2019-10-18 14:33:00 * Test Item Value Reference Range Interpretation Comments Eosinophils (%) (Auto) (test code = 713-8) 3.0 0.0-6.0 [facility] CampusBasophils (%) (Auto)2019-10-18 14:33:00* Test Item Value Reference Range Interpretation Comments Basophils (%) (Auto) (test code = 706-2) 1.2 0.0-1.0 H [facility] CampusIM GRANULOCYTES %2019-10-18 14:33:00* Test Item Value Reference Range Interpretation Comments IM GRANULOCYTES % (test code = IM GRANULOCYTES %) 5.4 0.0- 1.0 H [facility] CampusNeutrophils # (Auto)2019-10-18 14:33:00* Test Item Value Reference Range Interpretation Comments Neutrophils # (Auto) (test code = 751-8) 5.4 2.1-6.9 [facility] CampusLymphocytes # (Auto)2019-10-18 14:33:00* Test Item Value Reference Range Interpretation Comments Lymphocytes # (Auto) (test code = 75187-1) 1.4 1.0-3.2 [facility] CampusMonocytes # (Auto)2019-10-18 14:33:00* Test Item Value Reference Range Interpretation Comments Monocytes # (Auto) (test code = 742-7) 0.6 0.2-0.8 [facility] CampusEosinophils # (Auto)2019-10-18 14:33:00* Test Item Value Reference Range Interpretation Comments Eosinophils # (Auto) (test code = 711-2) 0.2 0.0-0.4 [facility] CampusBasophils # (Auto)2019-10-18 14:33:00* Test Item Value Reference Range Interpretation Comments Basophils # (Auto) (test code = 704-7) 0.1 0.0-0.1 [facility] CampusAbsolute Immature Granulocyte (auto 2019-10-18 14:33:00* Test Item Value Reference Range Interpretation Comments Absolute Immature Granulocyte (auto (inocente t code = Absolute Immature Granulocyte (auto) 0.44 0-0.1 H [facility] CampusCT ABDOMEN/PELVIS UN3309-11-15 14:33:00 [facility] [address] [address] Patient Name: FRANK PERRY MR #: [id number] : 1930 Age/Sex: 89/F Req #: [id number] Adm Physician: Ordered by: LILIANA GARCIA MD Report #: [id number] Location: ER Room/Bed: Procedure: [id number] CT/CT ABDOMEN/PELVIS WO Exam Date: 10/18/19 Exam [...] 1443 COPY TO: LILIANA SANZ MD Urine GLA4433-99-04 12:33:00* Test Item Value Reference Range Interpretation Comments Urine WBC (test code = 5821-4) 6-10 0-5 H [facility] CampusUrine PUK0402-42-06 12:33:00* Test Item Value Reference Range Interpretation Comments Urine RBC (test code = 26941-0) 11-20 0-5 H [facility] CampusUrine Yoofbtog1454-01-95 12:33:00* Test Item Value Reference Range Interpretation Comments Urine Bacteria (test code = 71646-9) MODERATE NONE H [facility] CampusUrine Epithelial Espxv4022-77-79 12:33:00 * Test Item Value Reference Range Interpretation Comments Urine Epithelial Cells (test code = 71101-4) FEW NONE [facility] CampusUrine Jsxll9914-05-26 12:26:00* Test Item Value Reference Range Interpretation Comments Urine Color (test code = 5778-6) YELLOW YELLOW [facility] CampusUrine Hqaurts3257-75-87 12:26:00* Test Item Value Reference Range Interpretation Comments Urine Clarity (test code = 45452-5) CLEAR CLEAR [facility] CampusUrine Specific Ingdbyv2944-84-66 12:26:00 * Test Item Value Reference Range Interpretation Comments Urine Specific [place] (test code = 5811-5) 1.020 1.010-1.02 5 [facility] CampusUrine vV5561-07-01 12:26:00* Test Item Value Reference Range Interpretation Comments Urine pH (test code = 54569-2) 7 5-7 [facility] Leukocyte Ieuxrxmr6324-87-52 12:26:00* Test Item Value Reference Range Interpretation Comments Urine Leukocyte Esterase (test code = 5799-2) NEGATIVE NEGATIVE [facility] Fhixhzw9533-10-53 12:26:00* Test Item Value Reference Range Interpretation Comments Urine Nitrite (test code = 85589-2) NEGATIVE NEGATIVE [facility] CampusUrine Ugcyrpl2798-11-98 12:26:00* Test Item Value Reference Range Interpretation Comments Urine Protein (test code = 5804-0) NEGATIVE NEGATIVE [facility] Glucose (UA)2019-10-18 12:26:00* Test Item Value Reference Range Interpretation Comments Urine Glucose (UA) (test code = 2349-9) NEGATIVE NEGATIVE [facility] CampusUrine Okehfmd1114-03-30 12:26:00* Test Item Value Reference Range Interpretation Comments Urine Ketones (test code = 40807-8) NEGATIVE NEGATIVE [facility] Erginlslxkgw2982-11-74 12:26:00* Test Item Value Reference Range Interpretation Comments Urine Urobilinogen (test code = 20546-3) 0.2 0.2-1 [facility] CampusU[facility] Rdpvftyoz0289-23-60 12:26:00* Test Item Value Reference Range Interpretation Comments Urine Bilirubin (test code = 1978-6) NEGATIVE NEGATIVE [facility] CampusUrine Byncs8770-09-66 12:26:00* Test Item Value Reference Range Interpretation Comments Urine Blood (test code = 69759-5) TRACE NEGATIVE H [facility] CampusBacterial urine jqcaraf9370-06-12 10:13:00* Test Item Value Reference Range Interpretation Comments Urine Culture (test code = 630-4) PSEUDOMONAS AERUGINOSA [facility] CampusBacterial urine orrpuov9878-86-63 10:13:00* Test Item Value Reference Range Interpretation Comments Urine Culture (test code = 630-4) PSEUDOMONAS AERUGINOSA [facility] Ozdkj9590-27-14 02:58:00* Test Item Value Reference Range Interpretation Comments Sodium Level (test code = 2951-2) 136 136-145 [facility] CampusPotassium Dzlhp4383-39-78 02:58:00* Test Item Value Reference Range Interpretation Comments Potassium Level (test code = 2823-3) 3.9 3.5-5.1 [facility] CampusChloride Ghzlx1496-34-61 02:58:00* Test Item Value Reference Range Interpretation Comments Chloride Level (test code = 2075-0) 99 98-107 [facility] CampusCarbon Dioxide Asrnq9077-81-57 02:58:00* Test Item Value Reference Range Interpretation Comments Carbon Dioxide Level (test code = 2028-9) 24 22-29 [facility] CampusAnion Puu3895-49-76 02:58:00* Test Item Value Reference Range Interpretation Comments Anion Gap (test code = 31709-7) 16.9 8-16 H [facility] CampusBlood Urea Nypfepjs5072-52-26 02:58:00* Test Item Value Reference Range Interpretation Comments Blood Urea Nitrogen (test code = 3094-0) 15 7-26 [facility] CampusCreatinine2020-01-28 02:58:00* Test Item Value Reference Range Interpretation Comments Creatinine (test code = 2160-0) 1.01 0.57-1.11 [facility] CampusBUN/Creatinine Hcfjq6829-49-71 02:58:00* Test Item Value Reference Range Interpretation Comments BUN/Creatinine Ratio (test code = 3097-3) 15 6-25 [facility] CampusEstimat Glomerular Filtration Rate 2019-10-15 02:58:00* Test Item Value Reference Range Interpretation Comments Estimat Glomerular Filtration Rate (test code = 376735883) 52 >60 L Ranges were taken from the National Kidney Disease Education Program and the [facility] literature.Reference ranges:60 or greater: Jfiuqu52-28 ( for 3 consecutive months): Chronic kidney disease 15 or less: Kidney failureThe Hospitals of [facility] CampusGlucose Qymha0504-42-76 02:58:00* Test Item Value Reference Range Interpretation Comments Glucose Level (test code = UXJ3547) 96 74-118 [facility] CampusCalcium Rnytr4003-73-00 02:58:00* Test Item Value Reference Range Interpretation Comments Calcium Level (test code = 15618-6) 9.7 8.4-10.2 [facility] CampusUrine VRR2574-01-45 02:54:00* Test Item Value Reference Range Interpretation Comments Urine WBC (test code = 5821-4) 11-20 0-5 H [facility] CampusUrine WYT1559-59-14 02:54:00* Test Item Value Reference Range Interpretation Comments Urine RBC (test code = 51583-7) 0-5 0-5 [facility] CampusUrine Htwjxhax9379-09-60 02:54:00* Test Item Value Reference Range Interpretation Comments Urine Bacteria (test code = 65653-2) FEW NONE [facility] CampusUrine Epithelial Rsnbk5971-55-98 02:54:00 * Test Item Value Reference Range Interpretation Comments Urine Epithelial Cells (test code = 38961-9) FEW NONE [facility] CampusWhite Blood Gmvno7837-62-03 02:40:00* Test Item Value Reference Range Interpretation Comments White Blood Count (test code = 6690-2) 8.47 4.8-10.8 [facility] CampusRed Blood Khpev4164-44-01 02:40:00* Test Item Value Reference Range Interpretation Comments Red Blood Count (test code = 789-8) 4.68 3.6-5.1 [facility] CampusHemoglobin2020-01-28 02:40:00* Test Item Value Reference Range Interpretation Comments Hemoglobin (test code = 86928-9) 14.1 12.0-16.0 [facility] CampusHematocrit2020-01-28 02:40:00* Test Item Value Reference Range Interpretation Comments Hematocrit (test code = 4544-3) 41.8 34.2-44.1 [facility] CampusMean Corpuscular Thutbf1848-76-09 02:40:00* Test Item Value Reference Range Interpretation Comments Mean Corpuscular Volume (test code = 787-2) 89.3 81-99 [facility] CampusMean Corpuscular Vudxhijvrf6732-59-75 02:40:00* Test Item Value Reference Range Interpretation Comments Mean Corpuscular Hemoglobin (test code = 785-6) 30.1 28-32 [facility] CampusMean Corpuscular Hemoglobin Concent 2019-10-15 02:40:00* Test Item Value Reference Range Interpretation Comments Mean Corpuscular Hemoglobin Concent (test code = 786-4) 33.7 31-35 [facility] CampusRed Cell Distribution Jhzcz6184-92-54 02:40:00* Test Item Value Reference Range Interpretation Comments Red Cell Distribution Width (test code = 36575-6) 13.0 11.7 -14.4 [facility] CampusPlatelet Valwa5047-28-88 02:40:00* Test Item Value Reference Range Interpretation Comments Platelet Count (test code = 777-3) 278 140-360 [facility] CampusNeutrophils (%) (Auto)2019-10-15 02:40:00 * Test Item Value Reference Range Interpretation Comments Neutrophils (%) (Auto) (test code = 61338-8) 74.8 38.7-80.0 [facility] CampusLymphocytes (%) (Auto)2019-10-15 02:40:00 * Test Item Value Reference Range Interpretation Comments Lymphocytes (%) (Auto) (test code = 736-9) 10.3 18.0-39.1 L [facility] CampusMonocytes (%) (Auto)2019-10-15 02:40:00* Test Item Value Reference Range Interpretation Comments Monocytes (%) (Auto) (test code = 5905-5) 6.6 4.4-11.3 [facility] CampusEosinophils (%) (Auto)2019-10-15 02:40:00 * Test Item Value Reference Range Interpretation Comments Eosinophils (%) (Auto) (test code = 713-8) 5.7 0.0-6.0 [facility] CampusBasophils (%) (Auto)2019-10-15 02:40:00* Test Item Value Reference Range Interpretation Comments Basophils (%) (Auto) (test code = 706-2) 0.6 0.0-1.0 [facility] CampusIM GRANULOCYTES %2019-10-15 02:40:00* Test Item Value Reference Range Interpretation Comments IM GRANULOCYTES % (test code = IM GRANULOCYTES %) 2.0 0.0- 1.0 H [facility] CampusNeutrophils # (Auto)2019-10-15 02:40:00* Test Item Value Reference Range Interpretation Comments Neutrophils # (Auto) (test code = 751-8) 6.3 2.1-6.9 [facility] CampusLymphocytes # (Auto)2019-10-15 02:40:00* Test Item Value Reference Range Interpretation Comments Lymphocytes # (Auto) (test code = 27290-2) 0.9 1.0-3.2 L [facility] CampusMonocytes # (Auto)2019-10-15 02:40:00* Test Item Value Reference Range Interpretation Comments Monocytes # (Auto) (test code = 742-7) 0.6 0.2-0.8 [facility] CampusEosinophils # (Auto)2019-10-15 02:40:00* Test Item Value Reference Range Interpretation Comments Eosinophils # (Auto) (test code = 711-2) 0.5 0.0-0.4 H [facility] CampusBasophils # (Auto)2019-10-15 02:40:00* Test Item Value Reference Range Interpretation Comments Basophils # (Auto) (test code = 704-7) 0.1 0.0-0.1 [facility] CampusAbsolute Immature Granulocyte (auto 2019-10-15 02:40:00* Test Item Value Reference Range Interpretation Comments Absolute Immature Granulocyte (auto (inocente t code = Absolute Immature Granulocyte (auto) 0.17 0-0.1 H [facility] CampusUrine Xkjwz1503-03-74 02:40:00* Test Item Value Reference Range Interpretation Comments Urine Color (test code = 5778-6) YELLOW YELLOW [facility] CampusUrine Qnggbns6367-00-51 02:40:00* Test Item Value Reference Range Interpretation Comments Urine Clarity (test code = 46347-6) CLEAR CLEAR [facility] CampusUrine Specific Phzkyoi4185-72-53 02:40:00 * Test Item Value Reference Range Interpretation Comments Urine Specific [place] (test code = 5811-5) 1.020 1.010-1.02 5 [facility] CampusUrine jW5716-60-99 02:40:00* Test Item Value Reference Range Interpretation Comments Urine pH (test code = 28594-1) 8 5-7 [facility] CampusUrine Leukocyte Wiqdpwzn4780-68-16 02:40:00* Test Item Value Reference Range Interpretation Comments Urine Leukocyte Esterase (test code = 5799-2) TRACE NEGATIVE H [facility] CampusUrine Rhnorzh5290-26-67 02:40:00* Test Item Value Reference Range Interpretation Comments Urine Nitrite (test code = 94943-1) NEGATIVE NEGATIVE [facility] CampusUrine Tzvqgna9902-92-15 02:40:00* Test Item Value Reference Range Interpretation Comments Urine Protein (test code = 5804-0) NEGATIVE NEGATIVE [facility] CampusUrine Glucose (UA)2019-10-15 02:40:00* Test Item Value Reference Range Interpretation Comments Urine Glucose (UA) (test code = 2349-9) NEGATIVE NEGATIVE [facility] CampusUrine Sfpyhkj3188-85-53 02:40:00* Test Item Value Reference Range Interpretation Comments Urine Ketones (test code = 67977-6) NEGATIVE NEGATIVE [facility] CampusUrine Tfxeeockspcm1106-41-21 02:40:00* Test Item Value Reference Range Interpretation Comments Urine Urobilinogen (test code = 33864-8) 0.2 0.2-1 [facility] CampusUrine Ynedpjphl9640-55-29 02:40:00* Test Item Value Reference Range Interpretation Comments Urine Bilirubin (test code = 1978-6) NEGATIVE NEGATIVE [facility] CampusUrine Ggivv9845-56-49 02:40:00* Test Item Value Reference Range Interpretation Comments Urine Blood (test code = 94129-9) TRACE NEGATIVE H [facility] CampusABDOMEN-1VIEW (KUB)2019-10-15 02:28:00 [facility] [address] [place] [address] Patient Name: FRANK PERRY MR #: [id number] : 1930 Age/Sex: 89/F Req #: [id number] Adm Physician: Ordered by: ELIZABETH JAMES MD Report #: [id number] Location: ER Room/Bed: Procedure: 0128-000 4 DX/ABDOMEN-1VIEW [...] 10/15 COPY TO: ELIZABETH JAMES MD ABDOMEN-1VIEW ([facility]) 2019-09-27 11:22:00 [place] [address] Patient Name: FRANK PERRY MR #: [id number] : 1930 Age/Sex: 89/F Req #: [id number] Adm Physician: Ordered by: TADEO HERNANDEZ MD Report #: [id number] Location: [facility] Room/Bed: Procedure: [id number] DX/AB DOMEN-1VIEW ([facility]) Exam Date: 09/27/19 Exam Time: 103 0 REPORT STATUS: Signed Exam: B - 2 views Indication: Abdominal Pain [...] 1123 COPY TO: TADEO HERNANDEZ MD SACRUM ADLKPE5763-85-33 15:43:00 [place] [address] Patient Name: FRANK PERRY MR #: [id number] : 1930 Age/Sex: 89/F Req #: [id number] Adm Physician: Ordered by: TSERING CAMERON MD Report #: [id number] Location: ER Room/Bed: Procedure: [id number] D X/SACRUM COCCYX Exam Date: 08/09/19 Exam [...] TSERING CAMERON MD SP LUMBAR, COMPLETE MIN 2OD1866-64-28 15:43:00 [place] [address] Patient Name: FRANK PERRY MR #: [id number] : 1930 Age/Sex: 89/F Req #: [id number] Adm Physician: Ordered by: TSERING CAMERON MD Report #: [id number] Location: ER Room/Bed: Procedure: [id number] D X/SP LUMBAR, COMPLETE MIN 4VW Exam [...] 08/09/191545 COPY TO: TSERING CAMERON MD Urine Zyqei9023-09-84 15:16:00* Test Item Value Reference Range Interpretation Comments Urine Color (test code = 5778-6) YELLOW YELLOW [facility] CampusUrine UHA5286-95-39 15:16:00* Test Item Value Reference Range Interpretation Comments Urine WBC (test code = 5821-4) NONE 0-5 [facility] CampusUrine HOU6608-56-52 15:16:00* Test Item Value Reference Range Interpretation Comments Urine RBC (test code = 33833-9) 0-5 0-5 [facility] CampusUrine Bjivbtjj0204-50-80 15:16:00* Test Item Value Reference Range Interpretation Comments Urine Bacteria (test code = 09958-4) NONE NONE [facility] CampusUrine Epithelial Kaevv2739-73-30 15:16:00 * Test Item Value Reference Range Interpretation Comments Urine Epithelial Cells (test code = 18175-8) RARE NONE [facility] CampusUrine Dqjzklq9881-11-88 14:59:00* Test Item Value Reference Range Interpretation Comments Urine Clarity (test code = 69880-9) CLEAR CLEAR [facility] CampusUrine Specific Cngzulb3739-39-02 14:59:00 * Test Item Value Reference Range Interpretation Comments Urine Specific [place] (test code = 5811-5) 1.010 1.010-1.02 5 [facility] CampusUrine wT5544-03-26 14:59:00* Test Item Value Reference Range Interpretation Comments Urine pH (test code = 64142-4) 8 5-7 [facility] CampusU[facility] Leukocyte Calrinen4779-94-85 14:59:00* Test Item Value Reference Range Interpretation Comments Urine Leukocyte Esterase (test code = 43320-6) NEGATIVE NEGATIV E [facility] CampusU[facility] Woqxshd8995-29-02 14:59:00* Test Item Value Reference Range Interpretation Comments Urine Nitrite (test code = 77479-3) NEGATIVE NEGATIVE [facility] CampusUrine Oucxuez0189-93-21 14:59:00* Test Item Value Reference Range Interpretation Comments Urine Protein (test code = 96854-4) NEGATIVE NEGATIVE [facility] CampusUrine Glucose (UA)2019-08-09 14:59:00* Test Item Value Reference Range Interpretation Comments Urine Glucose (UA) (test code = 60525-3) NEGATIVE NEGATIVE [facility] CampusUrine Jyapexe5868-23-09 14:59:00* Test Item Value Reference Range Interpretation Comments Urine Ketones (test code = 30534-8) NEGATIVE NEGATIVE [facility] CampusUrine Rvywcrdaqdqk2960-47-06 14:59:00* Test Item Value Reference Range Interpretation Comments Urine Urobilinogen (test code = 53473-4) 0.2 0.2-1 [facility] CampusUrine Xmmuipwon3077-72-49 14:59:00* Test Item Value Reference Range Interpretation Comments Urine Bilirubin (test code = 1977-8) NEGATIVE NEGATIVE [facility] CampusUrine Xewof9022-69-84 14:59:00* Test Item Value Reference Range Interpretation Comments Urine Blood (test code = 81894-7) 1+ NEGATIVE [facility] CampusCT ABDOMEN/PELVIS V4372-97-41 09:50:00 [facility] [address] [place] [address] Patient Name: FRANK PERRY MR #: [id number] : 1930 Age/Sex: 89/F Req #: [id number] Adm Physician: Ordered by: SUYAPA ALATORRE MD Report #: [id number] Location: [place] Room/Bed: Procedure: [id number] CT/C T ABDOMEN/PELVIS W Exam Date: 07/03/19 [...] COPY TO: SUYAPA ALATORRE MD Blood Urea Iagwlvpp5377-47-20 08:27:00* Test Item Value Reference Range Interpretation Comments Blood Urea Nitrogen (test code = 3094-0) 27 7-26 H [facility] CampusCreatinine2019-10-16 08:27:00* Test Item Value Reference Range Interpretation Comments Creatinine (test code = 2160-0) 1.34 0.57-1.11 H [facility] CampusBUN/Creatinine Ursrp2184-92-79 08:27:00* Test Item Value Reference Range Interpretation Comments BUN/Creatinine Ratio (test code = 3097-3) 20 6-25 [facility] CampusEstimat Glomerular Filtration Rate 2019-07-03 08:27:00* Test Item Value Reference Range Interpretation Comments Estimat Glomerular Filtration Rate (test code = 875643106) 37 >60 L Ranges were taken from the National Kidney Disease Education Program and the [facility] Kid[facility] Foundation literature.Reference ranges:60 or greater: Jvjaks55-94 ( for 3 consecutive months): Chronic kidney disease 15 or less: Kidney failureThe Hospitals of Providence [facility] CampusWhite Blood Kjbbl5243-83-19 16:18:00* Test Item Value Reference Range Interpretation Comments White Blood Count (test code = 6690-2) 7.46 4.8-10.8 [facility] CampusRed Blood Rajja9553-73-42 16:18:00* Test Item Value Reference Range Interpretation Comments Red Blood Count (test code = 789-8) 3.86 3.6-5.1 [facility] CampusHemoglobin2019-09-18 16:18:00* Test Item Value Reference Range Interpretation Comments Hemoglobin (test code = 31146-4) 11.7 12.0-16.0 L [facility] CampusHematocrit2019-09-18 16:18:00* Test Item Value Reference Range Interpretation Comments Hematocrit (test code = 4544-3) 35.2 34.2-44.1 [facility] CampusMean Corpuscular Adcozq4357-37-20 16:18:00* Test Item Value Reference Range Interpretation Comments Mean Corpuscular Volume (test code = 787-2) 91.2 81-99 [facility] CampusMean Corpuscular Qypjxtfmal1642-91-88 16:18:00* Test Item Value Reference Range Interpretation Comments Mean Corpuscular Hemoglobin (test code = 785-6) 30.3 28-32 [facility] CampusMean Corpuscular Hemoglobin Concent 2019-06-05 16:18:00* Test Item Value Reference Range Interpretation Comments Mean Corpuscular Hemoglobin Concent (test code = 786-4) 33.2 31-35 [facility] CampusRed Cell Distribution Mfkck7139-32-29 16:18:00* Test Item Value Reference Range Interpretation Comments Red Cell Distribution Width (test code = 57475-0) 13.0 11.7 -14.4 [facility] CampusPlatelet Stebf3776-03-40 16:18:00* Test Item Value Reference Range Interpretation Comments Platelet Count (test code = 777-3) 214 140-360 [facility] CampusNeutrophils (%) (Auto)2019-06-05 16:18:00 * Test Item Value Reference Range Interpretation Comments Neutrophils (%) (Auto) (test code = 11155-3) 64.8 38.7-80.0 [facility] CampusLymphocytes (%) (Auto)2019-06-05 16:18:00 * Test Item Value Reference Range Interpretation Comments Lymphocytes (%) (Auto) (test code = 736-9) 22.1 18.0-39.1 [facility] CampusMonocytes (%) (Auto)2019-06-05 16:18:00* Test Item Value Reference Range Interpretation Comments Monocytes (%) (Auto) (test code = 5905-5) 8.8 4.4-11.3 [facility] CampusEosinophils (%) (Auto)2019-06-05 16:18:00 * Test Item Value Reference Range Interpretation Comments Eosinophils (%) (Auto) (test code = 713-8) 2.9 0.0-6.0 [facility] CampusBasophils (%) (Auto)2019-06-05 16:18:00* Test Item Value Reference Range Interpretation Comments Basophils (%) (Auto) (test code = 706-2) 0.5 0.0-1.0 [facility] CampusIM GRANULOCYTES %2019-06-05 16:18:00* Test Item Value Reference Range Interpretation Comments IM GRANULOCYTES % (test code = IM GRANULOCYTES %) 0.9 0.0- 1.0 [facility] CampusNeutrophils # (Auto)2019-06-05 16:18:00* Test Item Value Reference Range Interpretation Comments Neutrophils # (Auto) (test code = 751-8) 4.8 2.1-6.9 [facility] CampusLymphocytes # (Auto)2019-06-05 16:18:00* Test Item Value Reference Range Interpretation Comments Lymphocytes # (Auto) (test code = 73143-8) 1.7 1.0-3.2 [facility] CampusMonocytes # (Auto)2019-06-05 16:18:00* Test Item Value Reference Range Interpretation Comments Monocytes # (Auto) (test code = 742-7) 0.7 0.2-0.8 [facility] CampusEosinophils # (Auto)2019-06-05 16:18:00* Test Item Value Reference Range Interpretation Comments Eosinophils # (Auto) (test code = 711-2) 0.2 0.0-0.4 [facility] CampusBasophils # (Auto)2019-06-05 16:18:00* Test Item Value Reference Range Interpretation Comments Basophils # (Auto) (test code = 704-7) 0.0 0.0-0.1 [facility] CampusAbsolute Immature Granulocyte (auto 2019-06-05 16:18:00* Test Item Value Reference Range Interpretation Comments Absolute Immature Granulocyte (auto (inocente t code = Absolute Immature Granulocyte (auto) 0.07 0-0.[address] [facility] [place]9912[facility] 12:37:00* Test Item Value Reference Range Interpretation Comments Troponin I (test code = VJR0296) 0.008 0-0.300 [place] 96451019-04-27 12:37:00* Test Item Value Reference Range Interpretation Comments Troponin I (test code = SOI3367) 0.008 0-0.300 [place] 96451019-04-27 12:37:00* Test Item Value Reference Range Interpretation Comments Troponin I (test code = OPD9886) 0.008 0-0.300 [facility] CampusCreatine Kinase XJ2109-95-52 07:01:00* Test Item Value Reference Range Interpretation Comments Creatine Kinase MB (test code = 92355-5) 1.10 0-5.0 [facility] CampusCreatine Kinase FW8175-68-11 07:01:00* Test Item Value Reference Range Interpretation Comments Creatine Kinase MB (test code = 98095-3) 1.10 0-5.0 [facility] CampusCreatine Kinase DO1767-94-20 07:01:00* Test Item Value Reference Range Interpretation Comments Creatine Kinase MB (test code = 90698-0) 1.10 0-5.0 [facility] CampusCreatine Ymvqth7763-98-88 06:53:00* Test Item Value Reference Range Interpretation Comments Creatine Kinase (test code = 2157-6) 28 29-168 L [facility] CampusCreatine Qabpqf0780-78-05 06:53:00* Test Item Value Reference Range Interpretation Comments Creatine Kinase (test code = 2157-6) 28 29-168 L [facility] CampusCreatine Gshmts5375-71-16 06:53:00* Test Item Value Reference Range Interpretation Comments Creatine Kinase (test code = 2157-6) 28 29-168 L [facility] Lvcpu6021-87-18 06:34:00* Test Item Value Reference Range Interpretation Comments Sodium Level (test code = 2951-2) 133 136-145 L [facility] CampusPotassium Ofdgd2845-08-85 06:34:00* Test Item Value Reference Range Interpretation Comments Potassium Level (test code = 2823-3) 4.5 3.5-5.1 [facility] CampusChloride Dftar3470-51-43 06:34:00* Test Item Value Reference Range Interpretation Comments Chloride Level (test code = 2075-0) 100 98-107 [facility] CampusCarbon Dioxide Aibup8240-51-96 06:34:00* Test Item Value Reference Range Interpretation Comments Carbon Dioxide Level (test code = 2028-9) 25 22-29 [facility] CampusAnion Qjd0710-04-86 06:34:00* Test Item Value Reference Range Interpretation Comments Anion Gap (test code = 54691-6) 12.5 8-16 [facility] CampusBlood Urea Hinzuqgy7028-13-58 06:34:00* Test Item Value Reference Range Interpretation Comments Blood Urea Nitrogen (test code = 3094-0) 19 7-26 [facility] CampusCreatinine2019-04-27 06:34:00* Test Item Value Reference Range Interpretation Comments Creatinine (test code = 2160-0) 1.04 0.57-1.11 [facility] CampusBUN/Creatinine Uazwz3869-66-17 06:34:00* Test Item Value Reference Range Interpretation Comments BUN/Creatinine Ratio (test code = 3097-3) 18 6-25 [facility] [facility] CampusEstimat Glomerular Filtration Rate 2019-01-12 06:34:00* Test Item Value Reference Range Interpretation Comments Estimat Glomerular Filtration Rate (test code = 537602008) 50 >60 L Ranges were taken from the National Kidney Disease Education Program and the [facility] [employer] literature.Reference ranges:60 or greater: Bzrdet43-82 ( for 3 consecutive months): Chronic kidney disease 15 or less: Kidney failureThe Hospitals of [facility] CampusGlucose Gedds8536-81-65 06:34:00* Test Item Value Reference Range Interpretation Comments Glucose Level (test code = LKI6186) 86 74-118 [facility] CampusCalcium Tolul8973-77-65 06:34:00* Test Item Value Reference Range Interpretation Comments Calcium Level (test code = 94401-8) 8.5 8.4-10.2 [facility] CampusTotal Beczuaywh5322-14-47 06:34:00* Test Item Value Reference Range Interpretation Comments Total Bilirubin (test code = 1975-2) 0.6 0.2-1.2 [facility] CampusAspartate Amino Transf (AST/SGOT) 2019-01-12 06:34:00* Test Item Value Reference Range Interpretation Comments Aspartate Amino Transf (AST/SGOT) (test code = Aspartate Amino Transf (AST/SGOT)) 15 5-34 [facility] CampusAlanine Aminotransferase (ALT/SGPT) 2019-01-12 06:34:00* Test Item Value Reference Range Interpretation Comments Alanine Aminotransferase (ALT/SGPT) (test code = 1742-6) 13 0-55 [facility] CampusTotal Itxvrjw6319-04-23 06:34:00* Test Item Value Reference Range Interpretation Comments Total Protein (test code = 2885-2) 5.6 6.5-8.1 L [facility] CampusAlbumin2019-04-27 06:34:00* Test Item Value Reference Range Interpretation Comments Albumin (test code = 1751-7) 2.9 3.5-5.0 L [facility] CampusGlobulin2019-04-27 06:34:00* Test Item Value Reference Range Interpretation Comments Globulin (test code = 99469-4) 2.7 2.3-3.5 [facility] CampusAlbumin/Globulin Gpmqa3450-41-40 06:34:00 * Test Item Value Reference Range Interpretation Comments Albumin/Globulin Ratio (test code = 1759-0) 1.1 0.8-2.0 [facility] CampusAlkaline Rluezzfngom7419-83-39 06:34:00* Test Item Value Reference Range Interpretation Comments Alkaline Phosphatase (test code = 6768-6) 53 40-150 [facility] Piatq9014-39-52 06:34:00* Test Item Value Reference Range Interpretation Comments Sodium Level (test code = 2951-2) 133 136-145 L [facility] CampusPotassium Idsti4165-61-39 06:34:00* Test Item Value Reference Range Interpretation Comments Potassium Level (test code = 2823-3) 4.5 3.5-5.1 [facility] CampusChloride Xblky8099-61-90 06:34:00* Test Item Value Reference Range Interpretation Comments Chloride Level (test code = 2075-0) 100 98-107 [facility] CampusCarbon Dioxide Zejdd7794-30-21 06:34:00* Test Item Value Reference Range Interpretation Comments Carbon Dioxide Level (test code = 2028-9) 25 22-29 [facility] CampusAnion Igr6160-49-69 06:34:00* Test Item Value Reference Range Interpretation Comments Anion Gap (test code = 46772-7) 12.5 8-16 [facility] CampusGlucose Qymjz8939-39-51 06:34:00* Test Item Value Reference Range Interpretation Comments Glucose Level (test code = YAZ5387) 86 74-118 [facility] CampusCalcium Aeimf7721-43-46 06:34:00* Test Item Value Reference Range Interpretation Comments Calcium Level (test code = 58129-1) 8.5 8.4-10.2 [facility] CampusTotal Fktdbzprn6472-37-67 06:34:00* Test Item Value Reference Range Interpretation Comments Total Bilirubin (test code = 1975-2) 0.6 0.2-1.2 [facility] CampusAspartate Amino Transf (AST/SGOT) 2019-01-12 06:34:00* Test Item Value Reference Range Interpretation Comments Aspartate Amino Transf (AST/SGOT) (test code = Aspartate Amino Transf (AST/SGOT)) 15 5-34 [facility] CampusAlanine Aminotransferase (ALT/SGPT) 2019-01-12 06:34:00* Test Item Value Reference Range Interpretation Comments Alanine Aminotransferase (ALT/SGPT) (test code = 1742-6) 13 0-55 [facility] CampusTotal Vodcuoj5694-28-96 06:34:00* Test Item Value Reference Range Interpretation Comments Total Protein (test code = 2885-2) 5.6 6.5-8.1 L [facility] CampusAlbumin2019-04-27 06:34:00* Test Item Value Reference Range Interpretation Comments Albumin (test code = 1751-7) 2.9 3.5-5.0 L [facility] CampusGlobulin2019-04-27 06:34:00* Test Item Value Reference Range Interpretation Comments Globulin (test code = 83201-9) 2.7 2.3-3.5 [facility] CampusAlbumin/Globulin Uissu7797-52-32 06:34:00 * Test Item Value Reference Range Interpretation Comments Albumin/Globulin Ratio (test code = 1759-0) 1.1 0.8-2.0 [facility] CampusAlkaline Qqlqlaaxbxr8318-05-12 06:34:00* Test Item Value Reference Range Interpretation Comments Alkaline Phosphatase (test code = 6768-6) 53 40-150 [facility] CampusTotal Qviagkluk8752-29-80 06:34:00* Test Item Value Reference Range Interpretation Comments Total Bilirubin (test code = 1975-2) 0.6 0.2-1.2 [facility] CampusAspartate Amino Transf (AST/SGOT) 2019-01-12 06:34:00* Test Item Value Reference Range Interpretation Comments Aspartate Amino Transf (AST/SGOT) (test code = Aspartate Amino Transf (AST/SGOT)) 15 5-34 [facility] CampusAlanine Aminotransferase (ALT/SGPT) 2019-01-12 06:34:00* Test Item Value Reference Range Interpretation Comments Alanine Aminotransferase (ALT/SGPT) (test code = 1742-6) 13 0-55 [facility] CampusTotal Rzfvodd3121-17-72 06:34:00* Test Item Value Reference Range Interpretation Comments Total Protein (test code = 2885-2) 5.6 6.5-8.1 L [facility] CampusAlbumin2019-04-27 06:34:00* Test Item Value Reference Range Interpretation Comments Albumin (test code = 1751-7) 2.9 3.5-5.0 L [facility] CampusGlobulin2019-04-27 06:34:00* Test Item Value Reference Range Interpretation Comments Globulin (test code = 26068-5) 2.7 2.3-3.5 [facility] CampusAlbumin/Globulin Cmfxu0660-01-95 06:34:00 * Test Item Value Reference Range Interpretation Comments Albumin/Globulin Ratio (test code = 1759-0) 1.1 0.8-2.0 [facility] CampusAlkaline Cenrklbsxwr7678-73-59 06:34:00* Test Item Value Reference Range Interpretation Comments Alkaline Phosphatase (test code = 6768-6) 53 40-150 [facility] CampusWhite Blood Frqdm6597-41-54 06:22:00* Test Item Value Reference Range Interpretation Comments White Blood Count (test code = 6690-2) 7.94 4.8-10.8 [facility] CampusRed Blood Pxdvb1008-97-82 06:22:00* Test Item Value Reference Range Interpretation Comments Red Blood Count (test code = 789-8) 4.11 3.6-5.1 [facility] CampusHemoglobin2019-04-27 06:22:00* Test Item Value Reference Range Interpretation Comments Hemoglobin (test code = 30350-6) 12.5 12.0-16.0 [facility] CampusHematocrit2019-04-27 06:22:00* Test Item Value Reference Range Interpretation Comments Hematocrit (test code = 4544-3) 36.8 34.2-44.1 [facility] CampusMean Corpuscular Xbxocs8721-61-03 06:22:00* Test Item Value Reference Range Interpretation Comments Mean Corpuscular Volume (test code = 787-2) 89.5 81-99 [facility] CampusMean Corpuscular Dmpwmurtdp2778-19-02 06:22:00* Test Item Value Reference Range Interpretation Comments Mean Corpuscular Hemoglobin (test code = 785-6) 30.4 28-32 [facility] CampusMean Corpuscular Hemoglobin Concent 2019-01-12 06:22:00* Test Item Value Reference Range Interpretation Comments Mean Corpuscular Hemoglobin Concent (test code = 786-4) 34.0 31-35 [facility] CampusRed Cell Distribution Octji1845-30-16 06:22:00* Test Item Value Reference Range Interpretation Comments Red Cell Distribution Width (test code = 84377-4) 12.9 11.7 -14.4 [facility] CampusPlatelet Fmzua5459-23-38 06:22:00* Test Item Value Reference Range Interpretation Comments Platelet Count (test code = 777-3) 199 140-360 [facility] CampusNeutrophils (%) (Auto)2019-01-12 06:22:00 * Test Item Value Reference Range Interpretation Comments Neutrophils (%) (Auto) (test code = 93066-0) 48.0 38.7-80.0 [facility] CampusLymphocytes (%) (Auto)2019-01-12 06:22:00 * Test Item Value Reference Range Interpretation Comments Lymphocytes (%) (Auto) (test code = 736-9) 30.9 18.0-39.1 [facility] CampusMonocytes (%) (Auto)2019-01-12 06:22:00* Test Item Value Reference Range Interpretation Comments Monocytes (%) (Auto) (test code = 5905-5) 11.2 4.4-11.3 [facility] CampusEosinophils (%) (Auto)2019-01-12 06:22:00 * Test Item Value Reference Range Interpretation Comments Eosinophils (%) (Auto) (test code = 713-8) 5.2 0.0-6.0 [facility] CampusBasophils (%) (Auto)2019-01-12 06:22:00* Test Item Value Reference Range Interpretation Comments Basophils (%) (Auto) (test code = 706-2) 0.5 0.0-1.0 [facility] CampusIM GRANULOCYTES %2019-01-12 06:22:00* Test Item Value Reference Range Interpretation Comments IM GRANULOCYTES % (test code = IM GRANULOCYTES %) 4.2 0.0- 1.0 H [facility] CampusNeutrophils # (Auto)2019-01-12 06:22:00* Test Item Value Reference Range Interpretation Comments Neutrophils # (Auto) (test code = 751-8) 3.8 2.1-6.9 [facility] CampusLymphocytes # (Auto)2019-01-12 06:22:00* Test Item Value Reference Range Interpretation Comments Lymphocytes # (Auto) (test code = 27762-1) 2.5 1.0-3.2 [facility] CampusMonocytes # (Auto)2019-01-12 06:22:00* Test Item Value Reference Range Interpretation Comments Monocytes # (Auto) (test code = 742-7) 0.9 0.2-0.8 H [facility] CampusEosinophils # (Auto)2019-01-12 06:22:00* Test Item Value Reference Range Interpretation Comments Eosinophils # (Auto) (test code = 711-2) 0.4 0.0-0.4 [facility] CampusBasophils # (Auto)2019-01-12 06:22:00* Test Item Value Reference Range Interpretation Comments Basophils # (Auto) (test code = 704-7) 0.0 0.0-0.1 [facility] CampusAbsolute Immature Granulocyte (auto 2019-01-12 06:22:00* Test Item Value Reference Range Interpretation Comments Absolute Immature Granulocyte (auto (inocente t code = Absolute Immature Granulocyte (auto) 0.33 0-0.1 H [facility] CampusCXR 2 VIEW - BJFO9676-69-77 13:38:00 [place] [address] Patient Name: FRANK PERRY MR #: [id number] : 1930 Age/Sex: 88/F Req #: [id number] Adm Physician: CALEB ALATORRE MD Ordered by: LINDY WALKER MD Report #: [id number] Location: [facility] Room/Bed: [place] [address] Procedure: [id number] HOPD/CXR 2 VIEW - HOPD Exam Date: [...] GREGORY WALKER MD CHEST SINGLE (PORTABLE)2018-12-21 20:16:00 [place] [address] Patient Name: FRANK PERRY MR #: [id number] : 1930 Age/Sex: 88/F Req #: [id number] Adm Physician: Ordered by: LILIANA GARCIA MD Report #: [id number] Location: ER Room/Bed: Procedure: [id number] DX/CH EST SINGLE (PORTABLE) Exam Date: Exam [...] Transcribed By: ROLO on 12/21/182019 COPY TO: LILAINA GARCIA MD B-Type Natriuretic Gwbwbkt6927-68-09 19:31:00* Test Item Value Reference Range Interpretation Comments B-Type Natriuretic Peptide (test code = 77870-0) 219.8 0-100 H [facility] CampusB-Type Natriuretic Xcgpbiq8480-05-43 19:31:00* Test Item Value Reference Range Interpretation Comments B-Type Natriuretic Peptide (test code = 89306-1) 219.8 0-100 H [facility] CampusB-Type Natriuretic Aiflyrr4385-85-15 19:31:00* Test Item Value Reference Range Interpretation Comments B-Type Natriuretic Peptide (test code = 10969-3) 219.8 0-100 H [facility] CampusB-Type Natriuretic Ibnfaaq7241-70-24 19:31:00* Test Item Value Reference Range Interpretation Comments B-Type Natriuretic Peptide (test code = 76684-6) 219.8 0-100 H [facility] CampusCreatine Kinase FW8044-99-37 19:27:00* Test Item Value Reference Range Interpretation Comments Creatine Kinase MB (test code = 15134-2) 5.50 0-5.0 H [facility] CampusTroponin X8121-18-23 19:27:00* Test Item Value Reference Range Interpretation Comments Troponin I (test code = PHK0532) 0.015 0-0.300 [facility] Flhcl4617-37-15 19:21:00* Test Item Value Reference Range Interpretation Comments Sodium Level (test code = 2951-2) 133 136-145 L [facility] CampusPotassium Xbagr2023-54-45 19:21:00* Test Item Value Reference Range Interpretation Comments Potassium Level (test code = 2823-3) 4.0 3.5-5.1 [facility] CampusChloride Yjmgk7472-57-03 19:21:00* Test Item Value Reference Range Interpretation Comments Chloride Level (test code = 2075-0) 97 98-107 L [facility] CampusCarbon Dioxide Jphbe2209-60-26 19:21:00* Test Item Value Reference Range Interpretation Comments Carbon Dioxide Level (test code = 2028-9) 27 22-29 [facility] CampusAnion Buv9675-61-27 19:21:00* Test Item Value Reference Range Interpretation Comments Anion Gap (test code = 83872-6) 13.0 8-16 [facility] CampusBlood Urea Ifmwqybq0494-82-10 19:21:00* Test Item Value Reference Range Interpretation Comments Blood Urea Nitrogen (test code = 3094-0) 18 7-26 [facility] CampusCreatinine2019-04-05 19:21:00* Test Item Value Reference Range Interpretation Comments Creatinine (test code = 2160-0) 0.96 0.57-1.11 [facility] CampusBUN/Creatinine Zjbcw1432-21-45 19:21:00* Test Item Value Reference Range Interpretation Comments BUN/Creatinine Ratio (test code = 3097-3) 19 6-25 [facility] CampusEstimat Glomerular Filtration Rate 2018-12-21 19:21:00* Test Item Value Reference Range Interpretation Comments Estimat Glomerular Filtration Rate (test code = 769079922) 55 >60 L Ranges were taken from the National Kidney Disease Education Program and the [facility] Kidney Foundation literature.Reference ranges:60 or greater: Phgvsm72-90 ( for 3 consecutive months): Chronic kidney disease 15 or less: Kidney failureThe Hospitals of [facility] CampusGlucose Pbrhw6992-35-23 19:21:00* Test Item Value Reference Range Interpretation Comments Glucose Level (test code = LVW2637) 104 74-118 [facility] CampusCalcium Bejbl5766-98-87 19:21:00* Test Item Value Reference Range Interpretation Comments Calcium Level (test code = 72109-6) 10.2 8.4-10.2 [facility] CampusTotal Lmqtuuqcc9346-30-26 19:21:00* Test Item Value Reference Range Interpretation Comments Total Bilirubin (test code = 1975-2) 0.7 0.2-1.2 [facility] CampusAspartate Amino Transf (AST/SGOT) 2018-12-21 19:21:00* Test Item Value Reference Range Interpretation Comments Aspartate Amino Transf (AST/SGOT) (test code = Aspartate Amino Transf (AST/SGOT)) 26 5-34 [facility] CampusAlanine Aminotransferase (ALT/SGPT) 2018-12-21 19:21:00* Test Item Value Reference Range Interpretation Comments Alanine Aminotransferase (ALT/SGPT) (test code = 1742-6) 16 0-55 [facility] CampusTotal Apbpuis5668-98-63 19:21:00* Test Item Value Reference Range Interpretation Comments Total Protein (test code = 2885-2) 7.9 6.5-8.1 [facility] CampusAlbumin2019-04-05 19:21:00* Test Item Value Reference Range Interpretation Comments Albumin (test code = 1751-7) 4.2 3.5-5.0 [facility] CampusGlobulin2019-04-05 19:21:00* Test Item Value Reference Range Interpretation Comments Globulin (test code = 06034-8) 3.7 2.3-3.5 H [facility] CampusAlbumin/Globulin Nsbzr4008-59-81 19:21:00 * Test Item Value Reference Range Interpretation Comments Albumin/Globulin Ratio (test code = 1759-0) 1.1 0.8-2.0 [facility] CampusAlkaline Clkwszrnwcd4807-63-70 19:21:00* Test Item Value Reference Range Interpretation Comments Alkaline Phosphatase (test code = 6768-6) 85 40-150 [facility] CampusCreatine Aiopiv5354-84-35 19:21:00* Test Item Value Reference Range Interpretation Comments Creatine Kinase (test code = 2157-6) 108 29-168 [facility] CampusProthrombin Fxhh8058-25-89 19:20:00* Test Item Value Reference Range Interpretation Comments Prothrombin Time (test code = 5902-2) 12.4 11.9-14.5 [facility] CampusProthromb Time International Ratio 2018-12-21 19:20:00* Test Item Value Reference Range Interpretation Comments Prothromb Time International Ratio (test code = 6301-6) 0.88 Oral Anticoagulant Therapy INR Values:1. Low Intensity Therapy 1.5 - 2.02 . Moderate Intensity Therapy 2.0 - 3.03. High Intensity Therapy(1) 2.5 - 3. 54. High Intensity Therapy(2) 3.0 - 4.05. Panic Value INR > 5.0 [facility] CampusActivated Partial Thromboplast Time 2018-12-21 19:20:00* Test Item Value Reference Range Interpretation Comments Activated Partial Thromboplast Time (test code = 78126-7) 31.5 23.8-35.5 [facility] CampusProthrombin Wnzl2927-46-64 19:20:00* Test Item Value Reference Range Interpretation Comments Prothrombin Time (test code = 5902-2) 12.4 11.9-14.5 [facility] CampusProthromb Time International Ratio 2018-12-21 19:20:00* Test Item Value Reference Range Interpretation Comments Prothromb Time International Ratio (test code = 6301-6) 0.88 Oral Anticoagulant Therapy INR Values:1. Low Intensity Therapy 1.5 - 2.02 . Moderate Intensity Therapy 2.0 - 3.03. High Intensity Therapy(1) 2.5 - 3. 54. High Intensity Therapy(2) 3.0 - 4.05. Panic Value INR > 5.0 [facility] CampusActivated Partial Thromboplast Time 2018-12-21 19:20:00* Test Item Value Reference Range Interpretation Comments Activated Partial Thromboplast Time (test code = 92345-0) 31.5 23.8-35.5 [facility] CampusProthrombin Ndpw4114-22-44 19:20:00* Test Item Value Reference Range Interpretation Comments Prothrombin Time (test code = 5902-2) 12.4 11.9-14.5 [facility] CampusProthromb Time International Ratio 2018-12-21 19:20:00* Test Item Value Reference Range Interpretation Comments Prothromb Time International Ratio (test code = 6301-6) 0.88 Oral Anticoagulant Therapy INR Values:1. Low Intensity Therapy 1.5 - 2.02 . Moderate Intensity Therapy 2.0 - 3.03. High Intensity Therapy(1) 2.5 - 3. 54. High Intensity Therapy(2) 3.0 - 4.05. Panic Value INR > 5.0 [facility] CampusActivated Partial Thromboplast Time 2018-12-21 19:20:00* Test Item Value Reference Range Interpretation Comments Activated Partial Thromboplast Time (test code = 29502-8) 31.5 23.8-35.5 [facility] CampusProthrombin Engt0728-45-48 19:20:00* Test Item Value Reference Range Interpretation Comments Prothrombin Time (test code = 5902-2) 12.4 11.9-14.5 [facility] CampusProthromb Time International Ratio 2018-12-21 19:20:00* Test Item Value Reference Range Interpretation Comments Prothromb Time International Ratio (test code = 6301-6) 0.88 Oral Anticoagulant Therapy INR Values:1. Low Intensity Therapy 1.5 - 2.02 . Moderate Intensity Therapy 2.0 - 3.03. High Intensity Therapy(1) 2.5 - 3. 54. High Intensity Therapy(2) 3.0 - 4.05. Panic Value INR > 5.0 [facility] CampusActivated Partial Thromboplast Time 2018-12-21 19:20:00* Test Item Value Reference Range Interpretation Comments Activated Partial Thromboplast Time (test code = 27892-8) 31.5 23.8-35.5 [facility] CampusWhite Blood Mjjed2741-47-90 19:18:00* Test Item Value Reference Range Interpretation Comments White Blood Count (test code = 6690-2) 8.83 4.8-10.8 [facility] CampusRed Blood Yuklu3213-60-84 19:18:00* Test Item Value Reference Range Interpretation Comments Red Blood Count (test code = 789-8) 4.76 3.6-5.1 [facility] CampusHemoglobin2019-04-05 19:18:00* Test Item Value Reference Range Interpretation Comments Hemoglobin (test code = 09134-7) 14.4 12.0-16.0 [facility] CampusHematocrit2019-04-05 19:18:00* Test Item Value Reference Range Interpretation Comments Hematocrit (test code = 4544-3) 42.7 34.2-44.1 [facility] CampusMean Corpuscular Qdxwxq7852-52-17 19:18:00* Test Item Value Reference Range Interpretation Comments Mean Corpuscular Volume (test code = 787-2) 89.7 81-99 [facility] CampusMean Corpuscular Jfjrtrwlws4015-87-11 19:18:00* Test Item Value Reference Range Interpretation Comments Mean Corpuscular Hemoglobin (test code = 785-6) 30.3 28-32 [facility] Hem[facility] Concent 2018-12-21 19:18:00* Test Item Value Reference Range Interpretation Comments Mean Corpuscular Hemoglobin Concent (test code = 786-4) 33.7 31-35 [facility] CampusRed Cell Distribution Kswtl7982-65-15 19:18:00* Test Item Value Reference Range Interpretation Comments Red Cell Distribution Width (test code = 33646-4) 12.1 11.7 -14.4 [facility] CampusPlatelet Gufhu4568-56-86 19:18:00* Test Item Value Reference Range Interpretation Comments Platelet Count (test code = 777-3) 239 140-360 [facility] CampusNeutrophils (%) (Auto)2018-12-21 19:18:00 * Test Item Value Reference Range Interpretation Comments Neutrophils (%) (Auto) (test code = 26473-2) 72.8 38.7-80.0 [facility] CampusLymphocytes (%) (Auto)2018-12-21 19:18:00 * Test Item Value Reference Range Interpretation Comments Lymphocytes (%) (Auto) (test code = 736-9) 17.0 18.0-39.1 L [facility] CampusMonocytes (%) (Auto)2018-12-21 19:18:00* Test Item Value Reference Range Interpretation Comments Monocytes (%) (Auto) (test code = 5905-5) 6.7 4.4-11.3 [facility] CampusEosinophils (%) (Auto)2018-12-21 19:18:00 * Test Item Value Reference Range Interpretation Comments Eosinophils (%) (Auto) (test code = 713-8) 2.2 0.0-6.0 [facility] CampusBasophils (%) (Auto)2018-12-21 19:18:00* Test Item Value Reference Range Interpretation Comments Basophils (%) (Auto) (test code = 706-2) 0.5 0.0-1.0 [facility] CampusIM GRANULOCYTES %2018-12-21 19:18:00* Test Item Value Reference Range Interpretation Comments IM GRANULOCYTES % (test code = IM GRANULOCYTES %) 0.8 0.0- 1.0 [facility] CampusNeutrophils # (Auto)2018-12-21 19:18:00* Test Item Value Reference Range Interpretation Comments Neutrophils # (Auto) (test code = 751-8) 6.4 2.1-6.9 [facility] CampusLymphocytes # (Auto)2018-12-21 19:18:00* Test Item Value Reference Range Interpretation Comments Lymphocytes # (Auto) (test code = 99056-6) 1.5 1.0-3.2 [facility]Monocytes # (Auto)2018-12-21 19:18:00* Test Item Value Reference Range Interpretation Comments Monocytes # (Auto) (test code = 742-7) 0.6 0.2-0.8 [facility]Eosinophils # (Auto)2018-12-21 19:18:00* Test Item Value Reference Range Interpretation Comments Eosinophils # (Auto) (test code = 711-2) 0.2 0.0-0.4 [facility]Basophils # (Auto)2018-12-21 19:18:00* Test Item Value Reference Range Interpretation Comments Basophils # (Auto) (test code = 704-7) 0.0 0.0-0.1 [facility] CampusAbsolute Immature Granulocyte (auto 2018-12-21 19:18:00* Test Item Value Reference Range Interpretation Comments Absolute Immature Granulocyte (auto (inocente t code = Absolute Immature Granulocyte (auto) 0.07 0-0.1 [facility] CampusUrine Audpq6526-75-62 18:43:00* Test Item Value Reference Range Interpretation Comments Urine Color (test code = 5778-6) YELLOW YELLOW [facility] CampusUrine Zvhszmt5294-24-47 18:43:00* Test Item Value Reference Range Interpretation Comments Urine Clarity (test code = 55404-7) CLEAR CLEAR [facility] CampusUrine Specific Qgzyvop7699-08-54 18:43:00 * Test Item Value Reference Range Interpretation Comments Urine Specific [place] (test code = 5811-5) 1.015 1.010-1.02 5 [facility] CampusUrine bM1934-50-97 18:43:00* Test Item Value Reference Range Interpretation Comments Urine pH (test code = 83218-6) 8 5-7 H [facility] CampusUrine Leukocyte Jwpnyeci1346-95-33 18:43:00* Test Item Value Reference Range Interpretation Comments Urine Leukocyte Esterase (test code = 5799-2) TRACE NEGATIVE H [facility] CampusUrine Evfmmnz4401-56-25 18:43:00* Test Item Value Reference Range Interpretation Comments Urine Nitrite (test code = 27503-3) NEGATIVE NEGATIVE [facility] CampusU[facility] Vyxpsjc5921-86-98 18:43:00* Test Item Value Reference Range Interpretation Comments Urine Protein (test code = 5804-0) NEGATIVE NEGATIVE [facility] CampusUrine Glucose (UA)2018-12-21 18:43:00* Test Item Value Reference Range Interpretation Comments Urine Glucose (UA) (test code = 2349-9) NEGATIVE NEGATIVE [facility] CampusU[facility] Eufycno7276-58-09 18:43:00* Test Item Value Reference Range Interpretation Comments Urine Ketones (test code = 99371-3) NEGATIVE NEGATIVE [facility] Tgdnxxjowfzh2926-37-99 18:43:00* Test Item Value Reference Range Interpretation Comments Urine Urobilinogen (test code = 55658-4) 0.2 0.2-1 [facility] Jlglbxvmh5283-51-79 18:43:00* Test Item Value Reference Range Interpretation Comments Urine Bilirubin (test code = 1978-6) NEGATIVE NEGATIVE [facility] Mzuvg2779-72-36 18:43:00* Test Item Value Reference Range Interpretation Comments Urine Blood (test code = 90658-7) 2+ NEGATIVE H [facility] CampusU[facility] MGM8452-71-54 18:43:00* Test Item Value Reference Range Interpretation Comments Urine WBC (test code = 5821-4) 6-10 0-5 H [facility] CampusU[facility] [id number] 18:43:00* Test Item Value Reference Range Interpretation Comments Urine RBC (test code = 79215-6) 6-10 0-5 H [facility] CampusU[facility] Fcykczxs1789-08-81 18:43:00* Test Item Value Reference Range Interpretation Comments Urine Bacteria (test code = 88857-3) MANY NONE H [facility] CampusU[facility] Epithelial Ivusi3097-29-54 18:43:00 * Test Item Value Reference Range Interpretation Comments Urine Epithelial Cells (test code = 19099-8) FEW NONE [facility] Pvdau5269-54-97 18:43:00* Test Item Value Reference Range Interpretation Comments Urine Color (test code = 5778-6) YELLOW YELLOW [facility] CampusU[facility] Jxrrakk9270-06-10 18:43:00* Test Item Value Reference Range Interpretation Comments Urine Clarity (test code = 33965-5) CLEAR CLEAR [facility] CampusU[facility] Specific Sitwmyg1022-96-13 18:43:00 * Test Item Value Reference Range Interpretation Comments Urine Specific [place] (test code = 5811-5) 1.015 1.010-1.02 5 [facility] CampusU[facility] fF4129-95-40 18:43:00* Test Item Value Reference Range Interpretation Comments Urine pH (test code = 50550-6) 8 5-7 H [facility] Leukocyte Wztottyb8962-92-23 18:43:00* Test Item Value Reference Range Interpretation Comments Urine Leukocyte Esterase (test code = 5799-2) TRACE NEGATIVE H [facility] Ewnljgj7079-80-86 18:43:00* Test Item Value Reference Range Interpretation Comments Urine Nitrite (test code = 37047-0) NEGATIVE NEGATIVE [facility] CampusU[facility] Rmrocix5691-39-93 18:43:00* Test Item Value Reference Range Interpretation Comments Urine Protein (test code = 5804-0) NEGATIVE NEGATIVE [facility] CampusUrine Glucose (UA)2018-12-21 18:43:00* Test Item Value Reference Range Interpretation Comments Urine Glucose (UA) (test code = 2349-9) NEGATIVE NEGATIVE [facility] CampusU[facility] Jynlknk5356-77-23 18:43:00* Test Item Value Reference Range Interpretation Comments Urine Ketones (test code = 57889-2) NEGATIVE NEGATIVE [facility] CampusU[facility] Kltwkdvsvbzv4014-80-38 18:43:00* Test Item Value Reference Range Interpretation Comments Urine Urobilinogen (test code = 58985-5) 0.2 0.2-1 [facility] Riivmmozg8174-56-16 18:43:00* Test Item Value Reference Range Interpretation Comments Urine Bilirubin (test code = 1978-6) NEGATIVE NEGATIVE [facility] CampusU[facility] Fprmd1655-65-48 18:43:00* Test Item Value Reference Range Interpretation Comments Urine Blood (test code = 43818-7) 2+ NEGATIVE H [facility] CampusU[facility] MKZ3166-01-17 18:43:00* Test Item Value Reference Range Interpretation Comments Urine WBC (test code = 5821-4) 6-10 0-5 H [facility] CampusU[facility] IIF7810-35-64 18:43:00* Test Item Value Reference Range Interpretation Comments Urine RBC (test code = 06300-2) 6-10 0-5 H [facility] CampusUrine Frvlssxh9298-29-44 18:43:00* Test Item Value Reference Range Interpretation Comments Urine Bacteria (test code = 95937-1) MANY NONE H [facility] CampusUrine Epithelial Pzhsa4261-82-46 18:43:00 * Test Item Value Reference Range Interpretation Comments Urine Epithelial Cells (test code = 40242-9) FEW NONE [facility] CampusCreatine Kinase NG5660-08-84 04:59:00* Test Item Value Reference Range Interpretation Comments Creatine Kinase MB (test code = 00110-1) 4.70 0-5.0 [facility] CampusTroponin A7054-47-70 04:59:00* Test Item Value Reference Range Interpretation Comments Troponin I (test code = AVI9775) 0.005 0-0.300 [facility] CampusCreatine Grxevv3005-21-53 04:55:00* Test Item Value Reference Range Interpretation Comments Creatine Kinase (test code = 2157-6) 103 29-168 [facility] Ufhzi8461-63-91 01:44:00* Test Item Value Reference Range Interpretation Comments Sodium Level (test code = 2951-2) 135 136-145 L [facility] CampusPotassium Vpdow6442-07-84 01:44:00* Test Item Value Reference Range Interpretation Comments Potassium Level (test code = 2823-3) 3.9 3.5-5.1 [facility] CampusChloride Sqpdt0016-23-80 01:44:00* Test Item Value Reference Range Interpretation Comments Chloride Level (test code = 2075-0) 101 98-107 [facility] CampusAnion Afp3750-23-58 01:39:00* Test Item Value Reference Range Interpretation Comments Anion Gap (test code = 59586-8) 12.9 8-16 [facility] CampusMagnesium Bqmly7422-94-25 01:39:00* Test Item Value Reference Range Interpretation Comments Magnesium Level (test code = 50629-1) 2.0 1.3-2.1 [facility] CampusCarbon Dioxide Bodmm0440-64-99 01:34:00* Test Item Value Reference Range Interpretation Comments Carbon Dioxide Level (test code = 2028-9) 25 22-29 [facility] CampusBlood Urea Dswapswy4217-64-11 01:34:00* Test Item Value Reference Range Interpretation Comments Blood Urea Nitrogen (test code = 3094-0) 17 7-26 [facility] CampusCreatinine2018-05-13 01:34:00* Test Item Value Reference Range Interpretation Comments Creatinine (test code = 2160-0) 0.89 0.57-1.11 [facility] CampusBUN/Creatinine Cgltf7611-64-04 01:34:00* Test Item Value Reference Range Interpretation Comments BUN/Creatinine Ratio (test code = 3097-3) 19 6-25 [facility] CampusEstimat Glomerular Filtration Rate 2018-01-28 01:34:00* Test Item Value Reference Range Interpretation Comments Estimat Glomerular Filtration Rate (test code = 30770-9) 60 >60 Ranges were taken from the National Kidney Disease Education Program and the [place]onel firsthealthal Kidney Foundation literature.Reference ranges:60 or greater: Toxyre02-79 ( for 3 consecutive months): Chronic kidney disease 15 or less: Kidney failureThe Hospitals of [facility] CampusGlucose Engzu3799-57-68 01:34:00* Test Item Value Reference Range Interpretation Comments Glucose Level (test code = LWM7163) 106 74-118 [facility] CampusCalcium Izjif2791-32-19 01:34:00* Test Item Value Reference Range Interpretation Comments Calcium Level (test code = 78796-1) 9.7 8.4-10.2 [facility] CampusTotal Jzwiejaan3118-43-94 01:34:00* Test Item Value Reference Range Interpretation Comments Total Bilirubin (test code = 1975-2) 0.4 0.2-1.2 [facility] CampusAspartate Amino Transf (AST/SGOT) 2018-01-28 01:34:00* Test Item Value Reference Range Interpretation Comments Aspartate Amino Transf (AST/SGOT) (test code = Aspartate Amino Transf (AST/SGOT)) 20 5-34 [facility] CampusAlanine Aminotransferase (ALT/SGPT) 2018-01-28 01:34:00* Test Item Value Reference Range Interpretation Comments Alanine Aminotransferase (ALT/SGPT) (test code = 1742-6) 14 0-55 [facility] Ysyeekh3327-09-95 01:34:00* Test Item Value Reference Range Interpretation Comments Total Protein (test code = 2885-2) 7.0 6.5-8.1 [facility] CampusAlbumin2018-05-13 01:34:00* Test Item Value Reference Range Interpretation Comments Albumin (test code = 1751-7) 3.6 3.5-5.0 [facility] CampusGlobulin2018-05-13 01:34:00* Test Item Value Reference Range Interpretation Comments Globulin (test code = 28624-5) 3.4 2.3-3.5 [facility] CampusAlbumin/Globulin Kvxnz2351-06-21 01:34:00 * Test Item Value Reference Range Interpretation Comments Albumin/Globulin Ratio (test code = 1759-0) 1.1 0.8-2.0 [facility] CampusAlkaline Gwrpobbtrai6040-32-60 01:34:00* Test Item Value Reference Range Interpretation Comments Alkaline Phosphatase (test code = 6768-6) 88 40-150 [facility] CampusActivated Partial Thromboplast Time 2018-01-28 01:21:00* Test Item Value Reference Range Interpretation Comments Activated Partial Thromboplast Time (test code = 48031-7) 29.7 23.8-35.5 [facility] CampusUrine UCY5497-62-87 01:20:00* Test Item Value Reference Range Interpretation Comments Urine WBC (test code = 5821-4) 0-5 0-5 [facility] CampusUrine ITV6536-72-36 01:20:00* Test Item Value Reference Range Interpretation Comments Urine RBC (test code = 23730-4) 6-10 0-5 H [facility] CampusUrine Vjrmzxrg4264-13-16 01:20:00* Test Item Value Reference Range Interpretation Comments Urine Bacteria (test code = 55947-8) NONE NONE [facility] CampusUrine Epithelial Cjyoc4990-13-82 01:20:00 * Test Item Value Reference Range Interpretation Comments Urine Epithelial Cells (test code = 45693-6) NONE NONE [facility] CampusUrine Jrefi3719-25-71 01:17:00* Test Item Value Reference Range Interpretation Comments Urine Color (test code = 5778-6) YELLOW YELLOW [facility] CampusUrine Ununfkb1781-25-77 01:17:00* Test Item Value Reference Range Interpretation Comments Urine Clarity (test code = 50204-0) CLEAR CLEAR [facility] CampusUrine Specific Uhrzuip0170-96-56 01:17:00 * Test Item Value Reference Range Interpretation Comments Urine Specific [place] (test code = 5811-5) 1.015 1.010-1.02 5 [facility] CampusUrine iU3976-17-64 01:17:00* Test Item Value Reference Range Interpretation Comments Urine pH (test code = 24670-1) 7 5-7 [facility] CampusUrine Leukocyte Uwylkjyt4301-93-01 01:17:00* Test Item Value Reference Range Interpretation Comments Urine Leukocyte Esterase (test code = 5799-2) NEGATIVE NEGATIVE [facility] CampusUrine Flevamz3625-12-47 01:17:00* Test Item Value Reference Range Interpretation Comments Urine Nitrite (test code = 75804-3) NEGATIVE NEGATIVE [facility] CampusUrine Ggdhfon6510-69-37 01:17:00* Test Item Value Reference Range Interpretation Comments Urine Protein (test code = 5804-0) NEGATIVE NEGATIVE [facility] CampusUrine Glucose (UA)2018-01-28 01:17:00* Test Item Value Reference Range Interpretation Comments Urine Glucose (UA) (test code = 2349-9) NEGATIVE NEGATIVE [facility] CampusUrine Xadjexf2947-62-80 01:17:00* Test Item Value Reference Range Interpretation Comments Urine Ketones (test code = 04477-5) NEGATIVE NEGATIVE [facility] CampusUrine Mrtgunubhzrq2027-42-01 01:17:00* Test Item Value Reference Range Interpretation Comments Urine Urobilinogen (test code = 11559-7) 0.2 0.2-1 [facility] CampusUrine Ktjnxmaxc9643-89-23 01:17:00* Test Item Value Reference Range Interpretation Comments Urine Bilirubin (test code = 1978-6) NEGATIVE NEGATIVE [facility] CampusUrine Fjqyy3216-18-29 01:17:00* Test Item Value Reference Range Interpretation Comments Urine Blood (test code = 00018-4) TRACE NEGATIVE H [facility] CampusProthrombin Sacl0816-77-41 01:16:00* Test Item Value Reference Range Interpretation Comments Prothrombin Time (test code = 5902-2) 12.6 11.9-14.5 [facility] CampusProthromb Time International Ratio 2018-01-28 01:16:00* Test Item Value Reference Range Interpretation Comments Prothromb Time International Ratio (test code = 6301-6) 1.02 Oral Anticoagulant Therapy INR Values:1. Low Intensity Therapy 1.5 - 2.02 . Moderate Intensity Therapy 2.0 - 3.03. High Intensity Therapy(1) 2.5 - 3. 54. High Intensity Therapy(2) 3.0 - 4.05. Panic Value INR > 5.0 [facility] CampusWhite Blood Jzlik0714-64-70 01:13:00* Test Item Value Reference Range Interpretation Comments White Blood Count (test code = 6690-2) 6.94 4.8-10.8 [facility] CampusRed Blood Kknin3979-98-03 01:13:00* Test Item Value Reference Range Interpretation Comments Red Blood Count (test code = 789-8) 4.21 3.6-5.1 [facility] CampusHemoglobin2018-05-13 01:13:00* Test Item Value Reference Range Interpretation Comments Hemoglobin (test code = 44041-8) 12.5 12.0-16.0 [facility] CampusHematocrit2018-05-13 01:13:00* Test Item Value Reference Range Interpretation Comments Hematocrit (test code = 4544-3) 37.3 34.2-44.1 [facility] CampusMean Corpuscular Xwwywz3755-97-23 01:13:00* Test Item Value Reference Range Interpretation Comments Mean Corpuscular Volume (test code = 787-2) 88.6 81-99 [facility] CampusMean Corpuscular Jklseawfae3696-44-44 01:13:00* Test Item Value Reference Range Interpretation Comments Mean Corpuscular Hemoglobin (test code = 785-6) 29.7 28-32 [facility] CampusMean Corpuscular Hemoglobin Concent 2018-01-28 01:13:00* Test Item Value Reference Range Interpretation Comments Mean Corpuscular Hemoglobin Concent (test code = 786-4) 33.5 31-35 [facility] CampusRed Cell Distribution Lywch0409-22-65 01:13:00* Test Item Value Reference Range Interpretation Comments Red Cell Distribution Width (test code = 24825-1) 13.2 11.7 -14.4 [facility] CampusPlatelet Uvgbg4378-88-10 01:13:00* Test Item Value Reference Range Interpretation Comments Platelet Count (test code = 777-3) 240 140-360 [facility] CampusNeutrophils (%) (Auto)2018-01-28 01:13:00 * Test Item Value Reference Range Interpretation Comments Neutrophils (%) (Auto) (test code = 00811-0) 63.6 38.7-80.0 [facility] CampusLymphocytes (%) (Auto)2018-01-28 01:13:00 * Test Item Value Reference Range Interpretation Comments Lymphocytes (%) (Auto) (test code = 736-9) 21.0 18.0-39.1 [facility] CampusMonocytes (%) (Auto)2018-01-28 01:13:00* Test Item Value Reference Range Interpretation Comments Monocytes (%) (Auto) (test code = 5905-5) 10.4 4.4-11.3 [facility] CampusEosinophils (%) (Auto)2018-01-28 01:13:00 * Test Item Value Reference Range Interpretation Comments Eosinophils (%) (Auto) (test code = 713-8) 4.0 0.0-6.0 [facility] CampusBasophils (%) (Auto)2018-01-28 01:13:00* Test Item Value Reference Range Interpretation Comments Basophils (%) (Auto) (test code = 706-2) 0.4 0.0-1.0 [facility] CampusIM GRANULOCYTES %2018-01-28 01:13:00* Test Item Value Reference Range Interpretation Comments IM GRANULOCYTES % (test code = IM GRANULOCYTES %) 0.6 0.0- 1.0 [facility] CampusNeutrophils # (Auto)2018-01-28 01:13:00* Test Item Value Reference Range Interpretation Comments Neutrophils # (Auto) (test code = 751-8) 4.4 2.1-6.9 [facility] CampusLymphocytes # (Auto)2018-01-28 01:13:00* Test Item Value Reference Range Interpretation Comments Lymphocytes # (Auto) (test code = 70998-6) 1.5 1.0-3.2 [facility] CampusMonocytes # (Auto)2018-01-28 01:13:00* Test Item Value Reference Range Interpretation Comments Monocytes # (Auto) (test code = 742-7) 0.7 0.2-0.8 [facility] CampusEosinophils # (Auto)2018-01-28 01:13:00* Test Item Value Reference Range Interpretation Comments Eosinophils # (Auto) (test code = 711-2) 0.3 0.0-0.4 [facility] CampusBasophils # (Auto)2018-01-28 01:13:00* Test Item Value Reference Range Interpretation Comments Basophils # (Auto) (test code = 704-7) 0.0 0.0-0.1 [facility] CampusAbsolute Immature Granulocyte (auto 2018-01-28 01:13:00* Test Item Value Reference Range Interpretation Comments Absolute Immature Granulocyte (auto (inocente t code = Absolute Immature Granulocyte (auto) 0.04 0-0.1 [facility] Vxuoy2045-69-24 09:37:00* Test Item Value Reference Range Interpretation Comments Sodium Level (test code = 2951-2) 136 136-145 [facility] CampusPotassium Wcrgo0768-64-26 09:37:00* Test Item Value Reference Range Interpretation Comments Potassium Level (test code = 2823-3) 4.2 3.5-5.1 [facility] CampusChloride Ihrkv3138-84-21 09:37:00* Test Item Value Reference Range Interpretation Comments Chloride Level (test code = 2075-0) 97 98-107 L [facility] CampusCarbon Dioxide Jgocj1987-32-00 09:37:00* Test Item Value Reference Range Interpretation Comments Carbon Dioxide Level (test code = 2028-9) 27 22-29 [facility] CampusAnion Tmb2327-86-67 09:37:00* Test Item Value Reference Range Interpretation Comments Anion Gap (test code = 79500-5) 16.2 8-16 H [facility] CampusBlood Urea Lcdkjizf3269-44-86 09:37:00* Test Item Value Reference Range Interpretation Comments Blood Urea Nitrogen (test code = 3094-0) 17 7-26 [facility] CampusCreatinine2018-04-25 09:37:00* Test Item Value Reference Range Interpretation Comments Creatinine (test code = 2160-0) 1.04 0.57-1.11 [facility] CampusBUN/Creatinine Widdb5010-05-83 09:37:00* Test Item Value Reference Range Interpretation Comments BUN/Creatinine Ratio (test code = 3097-3) 16 6-25 [facility] CampusEstimat Glomerular Filtration Rate 2018-01-10 09:37:00* Test Item Value Reference Range Interpretation Comments Estimat Glomerular Filtration Rate (test code = 62436-4) 50 >60 L Ranges were taken from the National Kidney Disease Education Program and the [place] Kidney Foundation literature.Reference ranges:60 or greater: Bpwhwb55-67 ( for 3 consecutive months): Chronic kidney disease 15 or less: Kidney failureThe Hospitals of [facility] CampusGlucose Fmbgv4591-78-55 09:37:00* Test Item Value Reference Range Interpretation Comments Glucose Level (test code = AWB3281) 165 74-118 H [facility] CampusCalcium Pplim3005-18-33 09:37:00* Test Item Value Reference Range Interpretation Comments Calcium Level (test code = 14588-8) 9.6 8.4-10.2 [facility] CampusUrine Wpoptzigpy0539-78-35 06:16:00* Test Item Value Reference Range Interpretation Comments Urine Osmolality (test code = 2695-5) 217 . 24 hr : 300 - 900 Random: 50 - 1400 After 12hr fluid restriction: >850Performed at: [facility] [place] [address] [id number] Director: EANREST Amaral MD, Phone: [phone] Medical Center of El Pasoerum Osmolality 2018-01-09 06:16:00* Test Item Value Reference Range Interpretation Comments Serum Osmolality (test code = 2692-2) 243 280-301 L Verified by repeat analysisPerformed at: [facility] [address] [id number] Director: EARNEST Amaral MD, Phone: [phone] [facility] CampusUrine Iadbnpcgrc3301-71-90 06:16:00* Test Item Value Reference Range Interpretation Comments Urine Osmolality (test code = 2695-5) 217 . 24 hr : 300 - 900 Random: 50 - 1400 After 12hr fluid restriction: >850Performed at: [facility] [address] [place] [id number] Director: EARNEST Amaral MD, Phone: [phone] Medical Center of El Pasoerum Osmolality 2018-01-09 06:16:00* Test Item Value Reference Range Interpretation Comments Serum Osmolality (test code = 2692-2) 243 280-301 L Verified by repeat analysisPerformed at: - [facility] [address] [facility] [address], [place], [place] [id number] Director: EARNEST Amaral MD, Phone: [phone] [facility] CampusMagnesium Kjdfv2125-83-26 06:59:00* Test Item Value Reference Range Interpretation Comments Magnesium Level (test code = 80582-0) 2.3 1.3-2.1 H [facility] CampusWhite Blood Ymdpk1044-60-30 06:17:00* Test Item Value Reference Range Interpretation Comments White Blood Count (test code = 6690-2) 7.81 4.8-10.8 [facility] CampusRed Blood Wqnmy3251-62-12 06:17:00* Test Item Value Reference Range Interpretation Comments Red Blood Count (test code = 789-8) 3.61 3.6-5.1 [facility] [facility]Hemoglobin2018-04-23 06:17:00* Test Item Value Reference Range Interpretation Comments Hemoglobin (test code = 03112-8) 10.6 12.0-16.0 L [facility]Hematocrit2018-04-23 06:17:00* Test Item Value Reference Range Interpretation Comments Hematocrit (test code = 4544-3) 31.5 34.2-44.1 L [facility] CampusMean Corpuscular Qlrnbd0614-68-94 06:17:00* Test Item Value Reference Range Interpretation Comments Mean Corpuscular Volume (test code = 787-2) 87.3 81-99 [facility] CampusMean Corpuscular Ctzzuqnkww2628-20-60 06:17:00* Test Item Value Reference Range Interpretation Comments Mean Corpuscular Hemoglobin (test code = 785-6) 29.4 28-32 [facility] CampusMean Corpuscular Hemoglobin Concent 2018-01-08 06:17:00* Test Item Value Reference Range Interpretation Comments Mean Corpuscular Hemoglobin Concent (test code = 786-4) 33.7 31-35 [facility] CampusRed Cell Distribution Tvetq1397-54-79 06:17:00* Test Item Value Reference Range Interpretation Comments Red Cell Distribution Width (test code = 79083-6) 13.2 11.7 -14.4 [facility] CampusPlatelet Bjixj9522-57-04 06:17:00* Test Item Value Reference Range Interpretation Comments Platelet Count (test code = 777-3) 231 140-360 [facility] CampusNeutrophils (%) (Auto)2018-01-08 06:17:00 * Test Item Value Reference Range Interpretation Comments Neutrophils (%) (Auto) (test code = 55381-9) 61.8 38.7-80.0 [facility] CampusLymphocytes (%) (Auto)2018-01-08 06:17:00 * Test Item Value Reference Range Interpretation Comments Lymphocytes (%) (Auto) (test code = 736-9) 17.4 18.0-39.1 L [facility] CampusMonocytes (%) (Auto)2018-01-08 06:17:00* Test Item Value Reference Range Interpretation Comments Monocytes (%) (Auto) (test code = 5905-5) 12.5 4.4-11.3 H [facility] CampusEosinophils (%) (Auto)2018-01-08 06:17:00 * Test Item Value Reference Range Interpretation Comments Eosinophils (%) (Auto) (test code = 713-8) 6.9 0.0-6.0 H [facility] CampusBasophils (%) (Auto)2018-01-08 06:17:00* Test Item Value Reference Range Interpretation Comments Basophils (%) (Auto) (test code = 706-2) 0.6 0.0-1.0 [facility] CampusIM GRANULOCYTES %2018-01-08 06:17:00* Test Item Value Reference Range Interpretation Comments IM GRANULOCYTES % (test code = IM GRANULOCYTES %) 0.8 0.0- 1.0 [facility] CampusNeutrophils # (Auto)2018-01-08 06:17:00* Test Item Value Reference Range Interpretation Comments Neutrophils # (Auto) (test code = 751-8) 4.8 2.1-6.9 [facility] CampusLymphocytes # (Auto)2018-01-08 06:17:00* Test Item Value Reference Range Interpretation Comments Lymphocytes # (Auto) (test code = 19238-6) 1.4 1.0-3.2 [facility] CampusMonocytes # (Auto)2018-01-08 06:17:00* Test Item Value Reference Range Interpretation Comments Monocytes # (Auto) (test code = 742-7) 1.0 0.2-0.8 H [facility] CampusEosinophils # (Auto)2018-01-08 06:17:00* Test Item Value Reference Range Interpretation Comments Eosinophils # (Auto) (test code = 711-2) 0.5 0.0-0.4 H [facility] CampusBasophils # (Auto)2018-01-08 06:17:00* Test Item Value Reference Range Interpretation Comments Basophils # (Auto) (test code = 704-7) 0.1 0.0-0.1 [facility] CampusAbsolute Immature Granulocyte (auto 2018-01-08 06:17:00* Test Item Value Reference Range Interpretation Comments Absolute Immature Granulocyte (auto (inocente t code = Absolute Immature Granulocyte (auto) 0.06 0-0.1 [facility] CampusUrine Chloride mmol/Iul9967-43-47 06:13:00* Test Item Value Reference Range Interpretation Comments Urine Chloride mmol/Day (test code = 65201-3) Comment 110-250 No total volume submitted. Unable to calculate 24 hourresult.Performed at: [facility] [id number] Director: Drew alfaro MD, Phone: [phone] [facility]als [facility] CampusUrine Chloride mmol/Zyw4384-31-26 06:13:00* Test Item Value Reference Range Interpretation Comments Urine Chloride mmol/Day (test code = 73652-2) Comment 110-250 No total volume submitted. Unable to calculate 24 hourresult.Performed at: [facility] [id number] Director: Drew alfaro MD, Phone: [phone] [facility] CampusUrine Chloride 2018-01-07 12:27:00* Test Item Value Reference Range Interpretation Comments Urine Chloride (test code = 19242-3) 53 [facility] CampusUrine Drlexqco6079-04-05 12:27:00* Test Item Value Reference Range Interpretation Comments Urine Chloride (test code = 82883-6) 53 [facility] CampusTotal Fdmaabaxj5331-70-19 05:31:00* Test Item Value Reference Range Interpretation Comments Total Bilirubin (test code = 1975-2) 0.4 0.2-1.2 [facility] CampusAspartate Amino Transf (AST/SGOT) 2018-01-07 05:31:00* Test Item Value Reference Range Interpretation Comments Aspartate Amino Transf (AST/SGOT) (test code = Aspartate Amino Transf (AST/SGOT)) 23 5-34 [facility] CampusAlanine Aminotransferase (ALT/SGPT) 2018-01-07 05:31:00* Test Item Value Reference Range Interpretation Comments Alanine Aminotransferase (ALT/SGPT) (test code = 1742-6) 9 0-55 [facility] CampusTotal Jpzwdxh3664-75-19 05:31:00* Test Item Value Reference Range Interpretation Comments Total Protein (test code = 2885-2) 5.1 6.5-8.1 L [facility] CampusAlbumin2018-04-22 05:31:00* Test Item Value Reference Range Interpretation Comments Albumin (test code = 1751-7) 2.6 3.5-5.0 L [facility] CampusGlobulin2018-04-22 05:31:00* Test Item Value Reference Range Interpretation Comments Globulin (test code = 60133-8) 2.5 2.3-3.5 [facility] CampusAlbumin/Globulin Wluit0514-11-69 05:31:00 * Test Item Value Reference Range Interpretation Comments Albumin/Globulin Ratio (test code = 1759-0) 1.0 0.8-2.0 [facility] CampusAlkaline Eeliriynhcc0959-47-37 05:31:00* Test Item Value Reference Range Interpretation Comments Alkaline Phosphatase (test code = 6768-6) 58 40-150 [facility] CampusUrine BHO3112-25-66 23:48:00* Test Item Value Reference Range Interpretation Comments Urine WBC (test code = 5821-4) 0-5 0-5 [facility] CampusUrine APG4173-91-81 23:48:00* Test Item Value Reference Range Interpretation Comments Urine RBC (test code = 60928-1) 6-10 0-5 H [facility] CampusUrine Avlhpnra4619-07-27 23:48:00* Test Item Value Reference Range Interpretation Comments Urine Bacteria (test code = 57605-7) NONE NONE [facility] CampusUrine Epithelial Akodg0979-84-08 23:48:00 * Test Item Value Reference Range Interpretation Comments Urine Epithelial Cells (test code = 39260-6) RARE NONE [facility] CampusUrine Dopxd8589-34-85 23:37:00* Test Item Value Reference Range Interpretation Comments Urine Color (test code = 5778-6) YELLOW YELLOW [facility] CampusUrine Zcngsbf1614-99-90 23:37:00* Test Item Value Reference Range Interpretation Comments Urine Clarity (test code = 85157-0) CLEAR CLEAR [facility] CampusUrine Specific Ryxhcam2716-53-50 23:37:00 * Test Item Value Reference Range Interpretation Comments Urine Specific [place] (test code = 5811-5) 1.015 1.010-1.02 5 [facility] CampusUrine nH1188-22-93 23:37:00* Test Item Value Reference Range Interpretation Comments Urine pH (test code = 17685-2) 7 5-7 [facility] CampusU[facility] Leukocyte Gptbcgnq3438-68-26 23:37:00* Test Item Value Reference Range Interpretation Comments Urine Leukocyte Esterase (test code = 5799-2) NEGATIVE NEGATIVE [facility] CampusUrine Vvctuui3671-68-74 23:37:00* Test Item Value Reference Range Interpretation Comments Urine Nitrite (test code = 15853-7) NEGATIVE NEGATIVE [facility] CampusUrine Jzztoue4830-63-16 23:37:00* Test Item Value Reference Range Interpretation Comments Urine Protein (test code = 5804-0) 1+ NEGATIVE H [facility] CampusUrine Glucose (UA)2018-01-05 23:37:00* Test Item Value Reference Range Interpretation Comments Urine Glucose (UA) (test code = 2349-9) NEGATIVE NEGATIVE [facility] CampusUrine Dhblece4161-01-25 23:37:00* Test Item Value Reference Range Interpretation Comments Urine Ketones (test code = 57341-1) 1+ NEGATIVE H [facility] Pxrytzvqcaav3969-51-62 23:37:00* Test Item Value Reference Range Interpretation Comments Urine Urobilinogen (test code = 71219-7) 0.2 0.2-1 [facility] CampusUrine Ughnslhto5944-30-70 23:37:00* Test Item Value Reference Range Interpretation Comments Urine Bilirubin (test code = 1978-6) NEGATIVE NEGATIVE [facility] Gnuyq8448-39-26 23:37:00* Test Item Value Reference Range Interpretation Comments Urine Blood (test code = 93393-1) TRACE NEGATIVE H [facility] CampusUrine Opiates Xxlqil7076-77-32 18:58:00* Test Item Value Reference Range Interpretation Comments Urine Opiates Screen (test code = 43260-5) NEGATIVE NEGATIVE [facility] CampusUrine Barbiturates Mkklty1199-01-25 18:58:00* Test Item Value Reference Range Interpretation Comments Urine Barbiturates Screen (test code = 463804487) NEGATIVE NEGA TIVE [facility] CampusUrine Phencyclidine Qykjzy3436-00-54 18:58:00* Test Item Value Reference Range Interpretation Comments Urine Phencyclidine Screen (test code = 59218-7) NEGATIVE NEGAT ASHLEY [facility] CampusUrine Amphetamines Xhwvjl7419-20-03 18:58:00* Test Item Value Reference Range Interpretation Comments Urine Amphetamines Screen (test code = 94134-8) NEGATIVE NEGATI VE [facility] CampusU[facility] Methamphetamines Hnoadl9872-90-49 18:58:00* Test Item Value Reference Range Interpretation Comments Urine Methamphetamines Screen (test code = Urine Metha mphetamines Screen) NEGATIVE NEGATIVE [facility] CampusUrine Benzodiazepines Izopod7952-37-24 18:58:00* Test Item Value Reference Range Interpretation Comments Urine Benzodiazepines Screen (test code = 91841-0) NEGATIVE NEG ATIVE [facility] CampusUrine Cocaine Rrjdzp6852-97-84 18:58:00* Test Item Value Reference Range Interpretation Comments Urine Cocaine Screen (test code = 3398-5) NEGATIVE NEGATIVE [facility] CampusUrine Cannabinoids Rmesdb5917-87-70 18:58:00* Test Item Value Reference Range Interpretation Comments Urine Cannabinoids Screen (test code = 68153-0) NEGATIVE NEGATI VE THESE RESULTS ARE FOR MEDICAL TREATMENT ONLYTHIS REPORT CONTAINS UNCONFIR MED SCREENING RESULTS*POSITIVE RESULTS WILL BE CONFIRMED BY REFERENCE LAB UPON R EQUEST CUT-OFFDRUG CLASS CONCENTRATION ng/mLAmphetamines 1000Methamphetamines 1000Cocaine 300Opiate 300Phencyc lidine 25Cannabinoid 50Barbiturates 300Benzodiazepine 300Methadone 300[facility] Snwsus6579-10-87 18:58:00* Test Item Value Reference Range Interpretation Comments Urine Methadone Screen (test code = 42872-7) NEGATIVE NEGATIVE THESE RESULTS ARE FOR MEDICAL TREATMENT ONLYTHIS REPORT CONTAINS UNCONFIR MED SCREENING RESULTS*POSITIVE RESULTS WILL BE CONFIRMED BY REFERENCE LAB UPON R EQUEST CUT-OFFDRUG CLASS CONCENTRATION ng/mLAmphetamines 1000Methamphetamines 1000Cocaine Metabolite 300Opiate 300Phencyc lidine 25Cannabinoid 50Barbiturates 300Benzodiazepine 300Methadone 300[facility] Opiates Rhyprl6669-50-67 18:58:00* Test Item Value Reference Range Interpretation Comments Urine Opiates Screen (test code = 83481-7) NEGATIVE NEGATIVE [facility] CampusUrine Barbiturates Zhaqsp1991-44-50 18:58:00* Test Item Value Reference Range Interpretation Comments Urine Barbiturates Screen (test code = 906688370) NEGATIVE NEGA TIVE [facility] CampusU[facility] Phencyclidine Nammki7558-42-75 18:58:00* Test Item Value Reference Range Interpretation Comments Urine Phencyclidine Screen (test code = 12858-1) NEGATIVE NEGAT ASHLEY [facility] CampusUrine Amphetamines Zquuup1260-45-60 18:58:00* Test Item Value Reference Range Interpretation Comments Urine Amphetamines Screen (test code = 59473-2) NEGATIVE NEGATI VE [facility] CampusU[facility] Methamphetamines Pphrqy2246-58-12 18:58:00* Test Item Value Reference Range Interpretation Comments Urine Methamphetamines Screen (test code = Urine Metha mphetamines Screen) NEGATIVE NEGATIVE [facility] CampusUrine Benzodiazepines Epswtd2643-34-23 18:58:00* Test Item Value Reference Range Interpretation Comments Urine Benzodiazepines Screen (test code = 26586-8) NEGATIVE NEG ATIVE [facility] CampusUrine Cocaine Fgimpk2667-39-22 18:58:00* Test Item Value Reference Range Interpretation Comments Urine Cocaine Screen (test code = 3398-5) NEGATIVE NEGATIVE [facility] CampusUrine Cannabinoids Srjaki2856-11-73 18:58:00* Test Item Value Reference Range Interpretation Comments Urine Cannabinoids Screen (test code = 07116-7) NEGATIVE NEGATI VE THESE RESULTS ARE FOR MEDICAL TREATMENT ONLYTHIS REPORT CONTAINS UNCONFIR MED SCREENING RESULTS*POSITIVE RESULTS WILL BE CONFIRMED BY REFERENCE LAB UPON R EQUEST CUT-OFFDRUG CLASS CONCENTRATION ng/mLAmphetamines 1000Methamphetamines 1000Cocaine 300Opiate 300Phencyc lidine 25Cannabinoid 50Barbiturates 300Benzodiazepine 300Methadone 300[facility] Methadone Tjxuiy9420-95-25 18:58:00* Test Item Value Reference Range Interpretation Comments Urine Methadone Screen (test code = 66164-9) NEGATIVE NEGATIVE THESE RESULTS ARE FOR MEDICAL TREATMENT ONLYTHIS REPORT CONTAINS UNCONFIR MED SCREENING RESULTS*POSITIVE RESULTS WILL BE CONFIRMED BY REFERENCE LAB UPON R EQUEST CUT-OFFDRUG CLASS CONCENTRATION ng/mLAmphetamines 1000Methamphetamines 1000Cocaine Metabolite 300Opiate 300Phencyc lidine 25Cannabinoid 50Barbiturates 300Benzodiazepine 300Methadone 300[facility]Free Eorxxxqma8101-21-33 18:33:00* Test Item Value Reference Range Interpretation Comments Free Thyroxine (test code = 3024-7) 1.12 0.9-1.8 [facility] CampusFree Hqyovpyxc9195-85-94 18:33:00* Test Item Value Reference Range Interpretation Comments Free Thyroxine (test code = 3024-7) 1.12 0.9-1.8 [facility] CampusUrine Random Qbmrgc2327-36-70 18:30:00* Test Item Value Reference Range Interpretation Comments Urine Random Sodium (test code = 2955-3) 65 [facility] CampusUrine Ajkdpcobnv6410-89-58 18:30:00* Test Item Value Reference Range Interpretation Comments Urine Creatinine (test code = 2161-8) 12.40 47-110 L [facility] CampusU[facility] Random Yjlezf2449-98-89 18:30:00* Test Item Value Reference Range Interpretation Comments Urine Random Sodium (test code = 2955-3) 65 [facility] CampusUrine Joheagukat9005-93-75 18:30:00* Test Item Value Reference Range Interpretation Comments Urine Creatinine (test code = 2161-8) 12.40 47-110 L [facility] CampusUric Mfaa2289-49-05 18:11:00* Test Item Value Reference Range Interpretation Comments Uric Acid (test code = 3084-1) 1.3 2.6-8.0 L [facility] CampusUric Xbqq2603-63-35 18:11:00* Test Item Value Reference Range Interpretation Comments Uric Acid (test code = 3084-1) 1.3 2.6-8.0 L [facility] CampusThyroid Stimulating Hormone (TSH) 2018-01-05 18:06:00* Test Item Value Reference Range Interpretation Comments Thyroid Stimulating Hormone (TSH) (test code = 53672-6) 1.921 0.350-4.940 [facility] CampusThyroid Stimulating Hormone (TSH) 2018-01-05 18:06:00* Test Item Value Reference Range Interpretation Comments Thyroid Stimulating Hormone (TSH) (test code = 05672-6) 1.921 0.350-4.940 [facility] Jhyazzfszp1376-49-81 17:44:00* Test Item Value Reference Range Interpretation Comments Serum Osmolality (test code = 65121-0) 229 278-305 L [facility] CampusTriglycerides Obyjd0651-15-38 17:44:00* Test Item Value Reference Range Interpretation Comments Triglycerides Level (test code = 2571-8) 74 0-149 [facility] Kjzxdsubkf7648-48-55 17:44:00* Test Item Value Reference Range Interpretation Comments Serum Osmolality (test code = 49409-6) 229 278-305 L [facility] CampusTriglycerides Jodvn5744-13-63 17:44:00* Test Item Value Reference Range Interpretation Comments Triglycerides Level (test code = 2571-8) 74 0-149 [facility] Hdvphqk8678-10-78 17:16:00* Test Item Value Reference Range Interpretation Comments Bedside Glucose (test code = 41689-6) 141 70-120 H Meter ID: [id number] [facility] Glucose 2018-01-05 17:16:00* Test Item Value Reference Range Interpretation Comments Bedside Glucose (test code = 95455-2) 141 70-120 H Meter ID: [id number] Medical CenterAmylase Level 2018-01-05 02:12:00* Test Item Value Reference Range Interpretation Comments Amylase Level (test code = 1798-8) 59 25-125 [facility] CampusLipase2018-04-20 02:12:00* Test Item Value Reference Range Interpretation Comments Lipase (test code = 3040-3) 54 8-78 [facility] CampusAmylase Lxykr7918-91-92 02:12:00* Test Item Value Reference Range Interpretation Comments Amylase Level (test code = 1798-8) 59 25-125 [facility] CampusLipase2018-04-20 02:12:00* Test Item Value Reference Range Interpretation Comments Lipase (test code = 3040-3) 54 8-78 [facility] CampusELECTROLYTES2018-04-06 11:00:0014.4 [facility] CrppebtYYPCGVHCDTHQ8741-02-73 11:00:0055[facility]ELECT[facility]OLYTES 2017-12-22 11:00:000.94[facility] EoyynxyVTKSZKZVZLCK6267-87-94 11:00:92742 [facility] XkgfzxaDAVJBJFSZRFL0861-19-84 11:00:0023[facility]annELECTROLYTES 2017-12-22 11:00:01984Rnlpftsh SteabrcBZTVBZNXGYVF5297-70-14 11:00:004.4[facility] BnfcyrxGFLJJSHSRJHS1189-93-91 11:00:0018[facility] ZnirrynGRGMXSWQEOLD6942-89-97 11:00:57563Uadlncfb FnjpxbmQWSFUIWBXWUG5473-82-77 11:00:008.9[facility] FIVJEREMEG0647-20-97 11:00:0065.3[facility] NrdhkmcNXMUBMREBB0529-01-62 11:00:00 23.6[facility] YltugbpJQRSKIRMQR1961-94-42 11:00:007.6[facility]annHEMATOLOGY 2017-12-22 11:00:003.0[facility] VcunizpRSQHDDRSRY2709-23-12 11:00:000.3[facility] HvxoethXRBEVDJQWT1276-64-85 11:00:000.7[facility] WyfahebCGZUEYFLJJ2471-05-11 11:00:002.2[facility] SmhrchjTENCPQZFWJ9148-08-51 11:00:000.5[facility] UEWNTSUTMA0862-76-77 11:00:006.0[facility] TglxmqwJMGSLATRTK4283-53-68 11:00:006.7 [facility] NbttykzRMWLZJGBIW4068-53-59 11:00:0013.4[facility]annHEMATOLOGY 2017-12-22 11:00:07256Jpizstel DylynlbBYVGQFXMJS5047-56-18 11:00:009.1[facility] JtscduvFEFYQZKYCU2423-68-46 11:00:004.34[facility] BbgbgqlIVDTJBZZLW5624-45-04 11:00:0012.9[facility] RbklfznATCIPLKQKE1192-75-64 11:00:0038.1[facility] BNDBYJNFPZ0490-80-61 11:00:0087.7[facility] CezeuziUXGJAFBHWY8603-96-20 11:00:00* Test Item Value Reference Range Interpretation Comments MCH (test code = MCH) 29.7 pg 27.0-31.0 [facility] LkkxxfsXFBMDOOYPW3194-64-29 11:00:0033.8[facility] HermannCHEM PANEL 2017-12-19 12:18:0083[facility] HermannCHEM DFTEF1885-17-29 12:18:0012.4[facility] HermannCHEM OQUXK8202-39-13 12:18:0051[facility] HermannCHEM XLDHM0788-93-14 12:18:28993Snegveyv HermannCHEM MURVZ8259-28-58 12:18:001.01[facility]annCHEM IPUGA1250-53-08 12:18:004.4[facility]annCHEM BFBAL9603-50-57 12:18:82024 [facility]annCHEM AZMCY8093-11-03 12:18:0022[facility]annCHEM PANEL 2017-12-19 12:18:008.8[facility] HermannCHEM PGSQA3691-39-53 12:18:0019[facility]annBLOOD BANK XVJTCLR5516-41-36 05:08:00Negative (12/18/17 12:08 AM)[facility]annCHEM EOYKB3526-23-25 05:08:002.3[facility]annCHEM LFTKD3218-35-67 05:08:0082[facility] HermannCHEM AVSEW8109-42-00 05:08:0021[facility] HermannCHEM GHXET7213-58-01 05:08:11012Mwtjubwr HermannCHEM FQMWA2677-16-93 05:08:001.37 [facility]annCHEM HGNVP7787-39-98 05:08:0030[facility]annCHEM PANEL 2017-12-18 05:08:004.4[facility] HermannCHEM ZWBDG0818-70-90 05:08:90058Bbeuxckn HermannCHEM ALFJV0688-36-35 05:08:0035[facility] HermannCHEM UZESP0781-63-57 05:08:008.2[facility] HermannCHEM XRHER5604-92-90 05:08:0013.4[facility]annCHEM VHRDV1562-56-31 05:08:003.1[facility] EwknqmaOWKTSNQQUT5491-01-30 05:08:00* Test Item Value Reference Range Interpretation Comments PTT (test code = PTT) 38.4 s 22.9-35.8 [facility] YytxaxxMXVOUFWJDL5285-48-45 05:08:00* Test Item Value Reference Range Interpretation Comments INR (test code = INR) 1.01 1 0.85-1.17 [facility] KlzqxomJLXYAMGJVQ8228-45-05 05:08:00* Test Item Value Reference Range Interpretation Comments PT (test code = PT) 13.3 s 12.0-14.7 [facility] TqlcbgiVYGOWWUDMP2965-92-52 05:08:009.5[facility]annHEMATOLOGY 2017-12-18 05:08:003.87[facility] PdtjcjaYLMWYIRLON3361-52-94 05:08:01981Ziqrmjha BxlygurXRMMZNZNHI9714-11-66 05:08:007.0[facility] OufrwldEYALHNGNQV9377-63-09 05:08:0033.8[facility] NvpnwsbQVDKFMTKOX8339-41-66 05:08:0013.3[facility] TXIEPBMLQH4635-49-03 05:08:0011.5[facility] WrfiksqLMKJOYPHNF0104-44-22 05:08:00 34.1[facility] QzxzrrzCJSFENNYZI9708-32-56 05:08:0088.1[facility]annHEMATOLOGY 2017-12-18 05:08:00* Test Item Value Reference Range Interpretation Comments MCH (test code = MCH) 29.7 pg 27.0-31.0 [facility] IyipkbuXGNLICAGSZ4323-55-54 05:08:0067.2[facility]annHEMATOLOGY 2017-12-18 05:08:0019.4[facility] JbmuglnJSMDRLYUCG5817-38-14 05:08:007.9[facility] YcoiplfAPKZYCQHUF2756-08-31 05:08:004.6[facility] TmzgyflKDWHQUSECX3791-53-09 05:08:000.9[facility] QxzbwwoXVCEAGFGSD3006-37-38 05:08:006.4[facility] ICYDWOFCOJ5512-79-41 05:08:001.8[facility] OojuqnrWDRNUVCOBK3991-74-68 05:08:000.4 [facility] XacmqpnQFYEQJPVMZ3400-21-80 05:08:000.8[facility]annHEMATOLOGY 2017-12-18 05:08:000.1[facility] HermannPARATHYROID FVNLFOR1695-98-93 05:08:001.06 [facility]annPARATHYROID GMYOQJB1688-88-84 05:08:001.06[facility]annBLOOD BANK LJJRKIJ0506-35-21 15:15:00Product available (12/17/17 10:15 AM)[facility]annBLOOD BANK QHWERIK4524-58-29 15:15:00Product available (12/17/17 10:15 AM) [facility]annUR[facility] AND AZLRZ4690-31-71 15:14:00Negative (12/17/17 10:14 AM) [facility] CMPYK1308-51-98 15:14:00Negative *NA*(12/17/17 10:14 AM) [facility] UBHKN3113-74-51 15:14:00Yellow *NA*(12/17/17 10:14 AM) [facility] YKJJO4337-64-03 15:14:00<1[facility]annUR[facility] AND PHDJB3096-61-21 15:14:00<1[facility]annUR[facility] AND TCJOK4206-08-95 15:14:00 Negative (12/17/17 10:14 AM)[facility] UEUZN3378-62-45 15:14:00 Negative (12/17/17 10:14 AM)[facility]annUR[facility] AND ZLGKT7193-74-12 15:14:00* Test Item Value Reference Range Interpretation Comments UA pH (test code = UA pH) 7.0 1 5.0-8.0 [facility]annUR[facility] AND HCXFR7135-73-94 15:14:00* Test Item Value Reference Range Interpretation Comments UA Spec Grav (test code = UA Spec Grav) 1.008 1 [facility]annUR[facility] AND SGIAV4318-34-28 15:14:00Clear (12/17/17 10:14 AM) [facility] WczlhpxATEDVKBKFS0867-84-56 14:15:000.38[facility]annHEMATOLOGY 2017-12-16 10:12:001.0[facility] LlsmbbuVLAKEYHTKF2479-43-67 10:12:000.8[facility] CjtcfgaKVETIQRDQE5345-49-45 10:12:005.2[facility] NwkatxwVXUCQNDJOJ0134-50-02 10:12:001.6[facility] TdkrmueDPOKMYQNHY3332-34-26 10:12:004.9[facility] ZLYOFPFNOA5243-73-61 10:12:000.4[facility] HxeeogiYFAFNLVRAN6422-87-39 10:12:000.1 [facility] TkbtiqsWKWTGQUPXT1855-43-41 10:12:0011.7[facility]annHEMATOLOGY 2017-12-16 10:12:0062.9[facility] VbhxozpYWHUYQFNVL9821-11-12 10:12:0019.7[facility] BgfqbcrDDQDLDYSQM6214-08-09 10:12:008.2[facility] AkjproyLVNCRYSXWC3582-11-87 10:12:003.60[facility] TsuwqqkJATOXQGVNI1753-17-91 10:12:00* Test Item Value Reference Range Interpretation Comments MCH (test code = MCH) 30.0 pg 27.0-31.0 [facility] UvdqfpjMSSWEHGFPM8116-16-04 10:12:0010.8[facility]annHEMATOLOGY 2017-12-16 10:12:0031.3[facility] XhafeqxTHDVRZICAV8776-93-94 10:12:0013.3[facility] VblewutELZUVDTCEG0847-99-08 10:12:54598Azdiiqea OgoaasvOAYBPKUMLH4517-05-54 10:12:0034.5[facility] PkgmjcsOUDFMOZYLV2486-44-39 10:12:0087.1[facility] PAUCOTRWGG9770-18-83 10:12:007.2[facility] ZgpgvcdWTUUQAFVIO7779-25-65 19:02:00 12.6[facility]annBLOOD BANK KBKTQUR8960-43-23 19:01:00Negative (12/15/17 2:01 PM)[facility] HermannCHEM JSWLO9534-04-20 19:01:001.0[facility]annHEMATOLOGY 2017-12-15 19:01:000.1[facility]annCT BRAIN WO [facility] [address] [address] Patient Name: FRANK PERRY MR #: [id number] : 1930 Age/Sex: 87/F Req #: [id number] Adm Physician: Ordered by: LILIANA GARCIA MD Report #: [id number] Location: ER Room/Bed: Procedure: [id number] CT/CT BRAIN WO Exam Date: 01/28 Exam [...] TO: LILIANA GARCIA MD CHEST SINGLE (PORTABLE) [place] [address] Patient Name: FRANK PERRY MR #: [id number] : Age/Sex: 87/F Req #: [id number] Adm Physician: Ordered by: LILIANA GARCIA MD Report #: [id number] Location: ER Room/Bed: Procedure: [id number] DX/CHEST SINGLE (PORTABLE) Exam Date: 01/28/18 Exam [...] LILIANA GARCIA MD BARIUM ENEMA W/AIR C [address], [place], [place] [address] Patient Name: FRANK PERRY MR #: [id number] : 1930 Age/Sex: 87/F Req #: [id number] Adm Physician: Ordered by: PIA MCCANN MD Report #: [id number] Location: DX Room/Bed: Procedure: [id number] DX/BARIUM ENEMA W/AIR C Exam Date : [...] bilateral decubitus images were obtained. 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 There [...] on 01/26/181111 COPY TO: PIA MCCANN MD [facility] (PORTABLE) [place] [address] Patient Name: FRANK PERYR MR #: [id number] : 1930 Age/Sex: 87/F Req #: [id number] Adm Physician: CALEB ALATORRE MD Ordered by: MICHELET RECIO MD Report #: [id number] Location: ICU Room/Bed: ICU 192 Procedure: [id number] DX/ CHEST SINGLE (PORTABLE) Exam Date: 01/06/18 [...] MICHELET RECIO MD, ABI CT BRAIN WO [place] [address] Patient Name: FRANK PERRY MR #: [id number] : 1930 Age/Sex: 87/F Req #: [id number] Adm Physician: CALEB HINES MD Ordered by: CALEB ALATORRE MD Report #: [id number] Locati on: ICU Room/Bed: ICU 192-1 Procedure: [id number] CT/C T BRAIN WO Exam Date: 01/05/18 [...] COPY TO: NANCY ALATORRE MD CT ABDOMEN/PELVIS [place] [address] Patient Name: FRANK PERRY MR #: [id number] : 1930 Age/Sex: 87/F Req #: [id number] Adm Physician: Ordered by: ELIZABETH JAMES MD Report #: [id number] Location: ER Room/Bed: Procedure: [id number] CT/CT ABDOMEN/PELVIS W E xam Date: Exam [...] 3:37 AM Dictated By: JESSE SOLANO MD 0337 Transcrib ed By: ROLO on 01/05/187 COPY TO: ELIZABETH JAMES MD ABDOMEN ACUTE SERIES W/PA CXR [place] [address] Patient Name: FRANK PERRY MR #: [id number] : 1930 Age/Sex: 87/F Req #: [id number] Adm Physician: Ordered by: ELIZABETH JAMES MD Report #: [id number] Location: ER Room/Bed: Procedure: [id number] DX/ABDOMEN ACUTE SERIES W /PA CXR Exam [...]
[2020-04-22 10:46] LABS: CLARITY,URINE CLEAR (CLEAR); COLOR,URINE YELLOW (YELLOW); KETONES,URINE TRACE (NEGATIVE); LEUKOCYTE ESTERASE ,URINE NEGATIVE (NEGATIVE); NITRITE,URINE NEGATIVE (NEGATIVE); PROTEIN,URINE DIPSTICK 1+ (NEGATIVE)
[2020-04-22 10:47] LABS: BILIRUBIN,URINE NEGATIVE (NEGATIVE); URINE UROBILINOGEN 0.2 mg/dL (0.2 - 1)
[2020-04-22 10:57] LABS: BACTERIA,URINE RARE /HPF; EPITHELIAL CELLS,URINE FEW /LPF
[2020-04-22 10:59] LABS: BLOOD UREA NITROGEN 20 mg/dL (7-26); GLUCOSE 122 mg/dL (74-118); OSMOLALITY,SERUM 244 mOsm/kg (278-305); SODIUM 119 mmol/L (136-145)
[2020-04-22 11:29] LABS: FREE THYROXINE INDEX 3.3154 (1.4-3.8); THYROID STIMULATING HORMONE 1.095 uIU/mL (0.350-4.940)
--- NOTE | 2020-04-22 12:10 | NUR ---
report to [facility]. pt in mri and spoke to shanelle regarding tele box to be brought to med surg one and will need to be placed on pt because pt cannot have tele on in mri/[place] aware.
[2020-04-22 12:30] VITALS: BP 171/69
[2020-04-22 12:45] VITALS: BP 171/69
[2020-04-22] MEDS: SODIUM CHLORIDE 0.9% 1000ML 1,000 ML IV SCH ×2 (13:00→22:53)
--- NOTE | 2020-04-22 13:05 | Diagnostic Imaging Report ---
EXAMINATION: MRI of the lumbar spine without contrast HISTORY: Chronic low back pain COMPARISON: Abdomen CT 12/01/2019 TECHNIQUE: Sagittal T1, T2, STIR; axial T2 and proton density. FINDINGS: It is assumed that there are 5 lumbar vertebrae. Curvature/Alignment: Levoscoliosis centered at L2. Right lateral spinal listhesis at L1-2. Spondylolisthesis at L1-L2. Minimal retrolisthesis at T12-L1. Vertebrae: No evidence of recent fracture, infection, or neoplasm. Chronic endplate degenerative changes at T12-S1. Benign hemangioma in the T12 vertebral body. Conus: Normal, terminating at L1 Cauda equina: No abnormalities. 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 Lower thoracic: Minimal disc bulge at T11-T12 and T12-L1. Paraspinal soft tissues: Unremarkable. Degenerative changes: Decreased disc height and T2 signal intensity, symmetrical/asymmetric disc bulges and marginal lateral osteophytes at all levels. L1-L2: Asymmetric right disc osteophyte and facet arthrosis. Moderate right foraminal stenoses. L2-L3: Asymmetric right disc osteophyte atherosclerosis. Mild right foraminal stenoses. L3-L4: Interbody fusion. Asymmetric left disc osteophyte and facet arthrosis. Mild right and moderate left foraminal stenoses. L4-L5: Asymmetric left disc osteophyte and facet arthrosis. Mild left foraminal stenoses. L5-S1: Asymmetric left disc osteophyte and facet arthrosis. Mild left foraminal stenoses. Sacroiliac joints: Unremarkable. IMPRESSION: 1. Mild foraminal stenosis on the right at L1-2 and L2-3 as well as on the left at L3-L4, L4-L5 and L5-S1 due to degenerative changes and levoscoliosis. 2. Multilevel spondylosis otherwise without significant spinal canal stenosis. Signed by: Dr. Aimee Graves M.D. on 04/22/2020 1:02 PM
[2020-04-22 13:08] LABS: BAND NEUTROPHILS % (MANUAL) 7 %; LYMPHOCYTES % (MANUAL) 6 % (19-48); MONOCYTES % (MANUAL) 7 % (3.4-9.0); NEUTROPHILS % (MANUAL) 80 % (40-74)
[2020-04-22 15:31] VITALS: BP 140/75
[2020-04-22 18:37] LABS: CREATINE KINASE MB 3.6 ng/mL (0-5.0)
[2020-04-22] MEDS ORDERED: METOPROLOL TARTRATE INJ 1 MG/ML VIAL IV PRN (18:45)
[2020-04-22] MEDS ORDERED: POLYETHYLENE GLYCOL 3350 17 GM PACK PO PRN (18:45)
[2020-04-22] MEDS ORDERED: TEMAZEPAM 15 MG CAP PO PRN (18:45)
[2020-04-22] MEDS ORDERED: ACETAMINOPHEN 325 MG TAB PO PRN (18:45)
[2020-04-22 20:00] VITALS: BP 120/60
--- NOTE | 2020-04-22 20:10 | NUR ---
Spoke with pt's son about pt's home med list.he is unable to help this matter.even patient does not remember.notified to JATIN Maradiaga.
[2020-04-22] MEDS: SODIUM CHLORIDE 1 GM TAB PO SCH ×2 (20:50→21:00)
[2020-04-22 21:00] VITALS: BP 120/60
[2020-04-23] VITALS (7 sets, daily range): BP systolic 121–157; BP diastolic 55–62
--- NOTE | 2020-04-23 01:51 | History and Physical ---
CONSULTING PHYSICIAN: Vianca Rider MD, with Nephrology. CHIEF COMPLAINT: Confusion. HISTORY OF PRESENT ILLNESS: The patient is an 89-year-old female, admitted with altered mental status from baseline per her family. Per the emergency department MD documentation, the patient was here on Monday for sciatica, was alert, awake, and oriented x4. Drove herself to the hospital today. The patient presented to the emergency department as "slow to normal" with complaints of dysuria and low back pain. Per the patient's family reported her doing better. PAST MEDICAL HISTORY: Irritable bowel syndrome, hypertension, gastroesophageal reflux disease, hyperlipidemia, chronic low back pain, osteoarthritis, osteoporosis, diverticulitis, severe degenerative joint disease, idiopathic ADH syndrome with low sodium, gastritis, distal esophagitis and small hiatal hernia on EGD per Dr. Logan Silva, severe chronic constipation, hemorrhoids. PAST SURGICAL HISTORY: LASIK skin grafts. FAMILY HISTORY: The patient denies any family history such as cancer, stroke, or heart attack. SOCIAL HISTORY: The patient denies previous use of tobacco, alcohol, or illicit drugs. ALLERGIES: GABAPENTIN. HOME MEDICATIONS: Home medications are not reviewed. This order was entered asking the nurse to go over the medications with the family, give me a call when medications are ready for reconciliation. REVIEW OF SYSTEMS: A 14-point review of systems was completed. The patient had minimal complaints, just mild low back pain, keeps repeating that she has a history of osteoporosis. She is somewhat hard of hearing. PHYSICAL EXAMINATION: VITAL SIGNS: Temperature 97.6, heart rate 80, blood pressure 140/75, respirations 20, oxygen saturation 100% on room air. Height 5 feet 3 inches, weight 115 pounds. BMI 20.36. GENERAL: Supine, in no acute distress. LUNGS: Clear to auscultation. Respiratory pattern even and unlabored. HEENT: EOMI. NECK: Supple. CARDIOVASCULAR: Regular rate and rhythm. No murmur. Normal saline infusing at 100 mL an hour into a peripheral IV. ABDOMEN: Bowel sounds positive. Soft, nontender. EXTREMITIES: No pitting edema. No clubbing, cyanosis, or signs of DVT. NEUROLOGIC: GCS 15. Nonfocal. LABORATORY DATA: WBCs 10.9, hemoglobin 14.6, hematocrit 40.9, platelets 285, neutrophils 72.7%. PT 12.7, INR 0.91, PTT 29. Sodium 119, potassium 4.3, chloride 85, CO2 of 24, anion gap 14.3, BUN 20, creatinine 1.22, estimated GFR 42. Glucose 122. Serum osmolality 244, calcium 9.5, magnesium 2.0, total bilirubin 1.5, AST 24, ALT 17, alkaline phosphatase 85. Creatine kinase 103, CK-MB 3.7, troponin I 0.005. Total protein 7.7, albumin 4.5. Subsequent cardiac biomarkers, creatine kinase 89, CK-MB 3.6, troponin I 0.009. Triglycerides 145, cholesterol 228, LDL 147, HDL 44. TSH 1.095, free T4 index 2.3154, thyroxine 9.47, T3 uptake 35.01. Urinalysis showed a specific gravity 1.02, protein 1+, trace amount of ketones, negative for nitrite, negative for leukocyte esterase, rbc 6-10, wbc 11-20. Urine sodium 20. Urine osmolality is pending. Acetaminophen level less than 3. Urine drug screen negative. Coronavirus PCR collected 04/22 is pending. Urine culture is pending. CT of the brain shows no intracranial abnormalities, particularly no mass, hemorrhage or acute cortical infarct. Chest x-ray showed hyperinflated lungs. No focal pneumonia or pulmonary edema. MRI of the lumbar spine showed mild foraminal stenosis on the right at L1-L2 and L2-L3 as well as on the left at L3-L4, L4-L5, and L5-S1 due to degenerative changes and levoscoliosis, multilevel spondylosis, otherwise without significant spinal cord stenosis. ASSESSMENT/PLAN: 1. Altered mental status from baseline; possibly due to hyponatremia and/or metabolic encephalopathy. Determine and treat underlying cause. 2. Acute hyponatremia, possibly syndrome of inappropriate antidiuretic hormone. Sodium level 119. Sodium chloride tabs 2 g p.o. t.i.d. ordered. Nephrology consult with Dr. Rider. Normal saline infusing at 100 mL an hour. 3. Acute kidney injury versus chronic kidney disease, with dehydration. BUN 20, creatinine 1.22, estimated GFR 42. The serum osmolality was 244. Urine sodium 20, urine osmolality pending. Serum sodium 119. Continue IV fluids and continue final renal labs. 4. Controlled hypertension. We will determine what medications patient takes at home. Blood pressure 140/75. 5. Chronic low back pain, severe degenerative joint disease, severe osteoporosis, ambulatory dysfunction. PT to evaluate and treat. 6. Hyperlipidemia. Cholesterol 220, LDL 147. From home she is on it or we can start her on simvastatin. Billing code 07973. Time spent 60 minutes. Dictated by Kelby Montemayor, JATIN MD ETHAN LathamP/MODL /[id number]
[2020-04-23 04:47] LABS: BASOPHILS % 0.3 % (0.0-1.0); EOSINOPHILS # (AUTO) 0.2 (0.0-0.4); EOSINOPHILS % 1.4 % (0.0-6.0); HEMATOCRIT 33.6 % (34.2-44.1); HEMOGLOBIN 11.5 g/dL (12.0-16.0); LYMPHOCYTES # (AUTO) 1.5 (1.0-3.2); LYMPHOCYTES % 12.8 % (18.0-39.1); MEAN CORPUSCULAR HEMOGLOBIN 30.5 pg (28-32); MEAN CORPUSCULAR HGB CONC 34.2 g/dL (31-35); MEAN CORPUSCULAR VOLUME 89.1 fL (81-99); MONOCYTES # (AUTO) 1.3 (0.2-0.8); MONOCYTES % 11.2 % (4.4-11.3); NEUTROPHILS # (AUTO) 7.8 (2.1-6.9); NEUTROPHILS % 68.7 % (38.7-80.0); PLATELET COUNT 223 x10e3/uL (140-360); RED BLOOD COUNT 3.77 x10e6/uL (3.6-5.1); RED CELL DISTRIBUTION WIDTH 12.6 % (11.7-14.4)
[2020-04-23 05:18] LABS: ALANINE AMINOTRANSFERASE 13 IU/L (0-55); ALBUMIN 3.1 g/dL (3.5-5.0); ALBUMIN/GLOBULIN RATIO 1.3 (0.8-2.0); ALKALINE PHOSPHATASE 65 IU/L (40-150); ANION GAP 9.5 mmol/L (8-16); BLOOD UREA NITROGEN 18 mg/dL (7-26); BUN/CREATININE RATIO 22 (6-25); CARBON DIOXIDE 18 mmol/L (22-29); CHLORIDE 106 mmol/L (98-107); CREATININE, SERUM 0.83 mg/dL (0.57-1.11); EST GLOMERULAR FILTRATION RATE > 60 ML/MIN (60-); GLUCOSE 88 mg/dL (74-118); POTASSIUM 4.5 mmol/L (3.5-5.1); SODIUM 129 mmol/L (136-145)
[2020-04-23 06:13] LABS: CREATINE KINASE MB 2.6 ng/mL (0-5.0)
--- NOTE | 2020-04-23 07:08 | NUR ---
BED SIDE SHIFT REPORT GIVEN TO ONCOMING RN.STABLE CONDITION.
[2020-04-23] MEDS: DOCUSATE SODIUM 100 MG CAP PO SCH ×2 (08:28→16:17)
[2020-04-23] MEDS: FAMOTIDINE 20 MG/2 ML VIAL IV SCH ×2 (08:28→16:17)
[2020-04-23] MEDS: SODIUM CHLORIDE 1 GM TAB PO SCH ×3 (08:28→21:45)
[2020-04-23] MEDS: CEFTRIAXONE SOD 1 GM/NS 50 ML 50 ML IV SCH ×2 (09:04→21:45)
[2020-04-23 10:26] LABS: BAND NEUTROPHILS % (MANUAL) 5 %; EOSINOPHILS % (MANUAL) 1 % (0-7); LYMPHOCYTES % (MANUAL) 9 % (19-48); MONOCYTES % (MANUAL) 8 % (3.4-9.0); NEUTROPHILS % (MANUAL) 77 % (40-74)
[2020-04-23] MEDS ORDERED: CELEBREX100 MG PO (10:44)
[2020-04-23] MEDS ORDERED: PROTONIX20 MG PO (10:44)
[2020-04-23] MEDS ORDERED: DICYCLOMINE HCL10 MG PO (10:44)
[2020-04-23] MEDS ORDERED: GABAPENTIN100 MG PO (10:44)
[2020-04-23] MEDS ORDERED: PROPAFENONE HC150 MG PO (10:45)
--- NOTE | 2020-04-23 16:09 | Consultation ---
DATE OF CONSULTATION: 04/23/2020 REASON FOR CONSULTATION: Hyponatremia. History is predominantly from chart, electronic records. HISTORY OF PRESENT ILLNESS: This is an 89-year-old female, pleasantly confused, not appearing, came in with hyponatremia. This is not the 1st time she has had hyponatremia according to history. There is no nausea, vomiting, or diarrhea reported. I saw her back in 2018 and then I believe in 2019 as well. History of hypertension, history of osteoarthritis, history of possible dementia. ALLERGIES: NEURONTIN. HOME MEDICATIONS: Include pantoprazole, Celebrex 100 mg capsule b.i.d., aspirin, amlodipine 2.5 once a day, acebutolol 200 mg capsule once b.i.d., gabapentin 100 mg once a day, and apparently she is allergic to gabapentin, but does what home medications say. SOCIAL HISTORY: There is no reported history of tobacco or alcohol use. LABORATORY DATA: Labs show white count 11.3, hemoglobin 11.5. Sodium 129, potassium 4.5, bicarbonate 18, BUN 18, creatinine 0.8. Calcium 8. Urine cultures pending. CURRENT MEDICATIONS: The patient is on ceftriaxone, normal saline has been stopped, and docusate, famotidine, metoprolol p.r.n., morphine p.r.n., ondansetron p.r.n., sodium chloride 2 g p.o. t.i.d., and temazepam. Urinalysis; specific gravity 1.020, pH 6.5 with a 6 to 10 rbc's, 11 to 20 wbc's. PHYSICAL EXAMINATION: GENERAL: Awake, alert, and oriented to name, not place, lying supine, in no apparent distress. VITAL SIGNS: Blood pressure 129/57, pulse rate 76, afebrile, and oxygen saturation 98% on room air. HEAD AND NECK: Cornea clear. Arcus senilis noted. Oral mucosa dry. Neck veins flat. LUNGS: Relatively clear. HEART: S1, S2 audible. ABDOMEN: Soft, nontender. EXTREMITIES: Lower extremity no edema. IMPRESSION AND PLAN: Syndrome of inappropriate antidiuretic hormone secretion, until proven otherwise. I will send a uric acid level, thyroid function tests noted. Continue with fluid restriction. Salt tablets. Blood pressure appears stable. Please see orders. MD JONNY Quesada/JOANNAL /[id number]
--- NOTE | 2020-04-23 22:36 | Progress Note ---
DATE: CONSULTING PHYSICIAN: Dr. Vianca Rider, Nephrology. SUBJECTIVE: The patient is lying supine in bed. She is pleasant, awake, and oriented to person, place, time, and situation. Currently has no complaints of pain or otherwise. OBJECTIVE: VITAL SIGNS: Temperature 98.3, heart rate 76, blood pressure 129/57, respirations 19, oxygen saturation 98%. GENERAL: No acute distress. LUNGS: Clear to auscultation. Respiratory pattern even and unlabored. HEENT: EOMI. NECK: Supple. CARDIOVASCULAR: Regular rate and rhythm. No murmur. Peripheral IV without IV fluids. ABDOMEN: Bowel sounds positive. Soft, nontender. EXTREMITIES: No pitting edema. No clubbing, cyanosis, or marked swelling. NEUROLOGICAL: GCS 15. Nonfocal. LABORATORY DATA: WBC 11.33, hemoglobin 11.5, hematocrit 33.6, platelets 223. Sodium 129, potassium 4.5, chloride 106, CO2 18, anion gap 9.5, BUN 18, creatinine 0.83, estimated GFR greater than 60, glucose 88, hemoglobin A1c 5.2%, uric acid 2.9, calcium 8, phosphorus 3, total bilirubin 0.5, AST 16, ALT 13, alkaline phosphatase 65. Ammonia level 65. Creatine kinase 58, CK-MB 2.6, troponin I 0.005. Total protein 5.4, albumin 3.1, phosphorus 3.0, uric acid 2.9, yesterday. Urine sodium 20. Serum osmolalities yesterday 244. Preliminary urine culture shows no growth after 18 to 24 hours. No new imaging studies. ASSESSMENT/PLAN: 1. Syndrome of inappropriate antidiuretic hormone with hyponatremia until proven otherwise. Sodium 129 (119). The patient is less confused, overall seems to be improving. I appreciate recommendations from Nephrology. 2. Dehydration, improving. BUN 18, creatinine 0.83, estimated GFR greater than 60. 3. Leukocytosis. WBC 11.3 (10.94). Await final urine culture and sensitivity results. 4. Controlled hypertension. Blood pressure 129/57. 5. Chronic low back pain, severe degenerative joint disease, severe osteoporosis, ambulatory dysfunction. PT to evaluate and treat. 6. Hyperlipidemia. Billing code [id number]. Time spent 35 minutes. Dictated by Kelby Montemayor, JATIN MD DAMASO Latham/JOANNAL /[id number]
[2020-04-24] VITALS (8 sets, daily range): BP systolic 132–172; BP diastolic 55–81
[2020-04-24 05:20] LABS: ALBUMIN 3.1 g/dL (3.5-5.0); ALBUMIN/GLOBULIN RATIO 1.2 (0.8-2.0); ANION GAP 10.3 mmol/L (8-16); CALCIUM 8.6 mg/dL (8.4-10.2); CREATININE, SERUM 0.9 mg/dL (0.57-1.11); POTASSIUM 4.3 mmol/L (3.5-5.1)
--- NOTE | 2020-04-24 07:00 | NUR ---
Bed side shift report given to oncoming RN.stable condition.
--- NOTE | 2020-04-24 07:00 | NUR ---
Received bedside shift report from off going night nurse. Patient in stable condition, no s/s of distress noted. Telemetry applied. IV site asymptomatic and patent, transparent dressing applied C/D/I. bed alarm applied. Bed in lowest position and locked. call light within reach.
[2020-04-24] MEDS: ACETAMINOPHEN/CODEINE 300MG - 30MG TAB PO PRN ×2 (07:15→16:07)
[2020-04-24] MEDS: SODIUM CHLORIDE 1 GM TAB PO SCH ×3 (08:35→20:34)
[2020-04-24] MEDS: FAMOTIDINE 20 MG/2 ML VIAL IV SCH ×2 (08:35→16:07)
[2020-04-24] MEDS: DOCUSATE SODIUM 100 MG CAP PO SCH ×2 (08:35→16:07)
[2020-04-24] MEDS: CEFTRIAXONE SOD 1 GM/NS 50 ML 50 ML IV SCH (10:03)
--- NOTE | 2020-04-24 15:57 | NUR ---
ORDER RECEIVED FOR HOME HEALTH FOR SN/PT/HSE. CALL TO PT TO DISCUSS CHOICE FOR HH COMPANY. PT STATES SHE HAS NOT HAD HOME HEALTH IN THE PAST. STATES HER DTR IN LAW HAS BEEN HELPING HER. EXPLAINED THE PURPOSE OF HOME HEALTH. VERBALIZED UNDERSTANDING. PT CHOSE [facility] OFF: [phone] / FAX: [phone]. REFERRAL WAS FAXED.
--- NOTE | 2020-04-24 18:22 | NUR ---
RECEIVED CALL FROM [facility] THEY ARE OUT OF NETWORK W PT'S INSURANCE. REFERRAL WAS FAXED TO [facility] @ OFF: [phone] / FAX: [phone]
--- NOTE | 2020-04-24 18:58 | NUR ---
Received change of shift report from AM nurse.
--- NOTE | 2020-04-24 19:31 | NUR ---
Completed bedside shift report [facility] Patient in stable condition, no s/s of distress noted. Telemetry applied. IV site asymptomatic and patent, transparent dressing applied C/D/I. bed alarm applied. Bed in lowest position and locked. call light within reach.
--- NOTE | 2020-04-24 23:44 | NUR ---
DATE: 04/24/2020 CONSULTING PHYSICIAN: Dr. Vianca Rider, Nephrology. SUBJECTIVE: The patient is lying supine in bed. She is pleasant, awake, and oriented to person, place, time, and situation. Currently has complaints of "burning at private area all the time", otherwise no pain. OBJECTIVE: VITAL SIGNS: Temperature 97.8, heart rate 71, blood pressure 152/77, respirations 18, oxygen saturation 99%. GENERAL: No acute distress. LUNGS: Clear to auscultation. Respiratory pattern even and unlabored. HEENT: EOMI. NECK: Supple. CARDIOVASCULAR: Regular rate and rhythm. No murmur. Peripheral IV without IV fluids. ABDOMEN: Bowel sounds positive. Soft, nontender. EXTREMITIES: No pitting edema. No clubbing, cyanosis, or marked swelling. NEUROLOGICAL: GCS 15. Nonfocal. LABORATORY DATA: 04/23: WBC 11.33, hemoglobin 11.5, hematocrit 33.6, platelets 223. Sodium 129, potassium 4.5, chloride 106, CO2 18, anion gap 9.5, BUN 18, creatinine 0.83, estimated GFR greater than 60, glucose 88, hemoglobin A1c 5.2%, uric acid 2.9, calcium 8, phosphorus 3, total bilirubin 0.5, AST 16, ALT 13, alkaline phosphatase 65. Ammonia level 65. Creatine kinase 58, CK-MB 2.6, troponin I 0.005. Total protein 5.4, albumin 3.1, phosphorus 3.0, uric acid 2.9, yesterday. Urine sodium 20. Serum osmolalities 244. Preliminary urine culture shows no growth after 18 to 24 hours. 04/24: Sodium 132, potassium 4.3, chloride 106, CO2 20, BUN 19, creatinine 0.90, estimated GFR 59, glucose 89 No new imaging studies. ASSESSMENT/PLAN: 1. Syndrome of inappropriate antidiuretic hormone with hyponatremia until proven otherwise. Sodium 132 (129, 119). The patient is less confused, overall seems to be improving. I appreciate recommendations from Nephrology. 2. Dehydration, improving. 3. Leukocytosis. WBC 11.3 (10.94). Final urine culture and sensitivity results show no growth at 36-48 hrs. Reports dysuria; will repeat urine C/S 4. Controlled hypertension. Blood pressure stable. 5. Chronic low back pain, severe degenerative joint disease, severe osteoporosis, ambulatory dysfunction. PT to evaluate and treat. 6. Hyperlipidemia. Billing code [id number]. Time spent 35 minutes.
[2020-04-25] VITALS (7 sets, daily range): BP systolic 137–188; BP diastolic 62–92
--- NOTE | 2020-04-25 | NUR ---
Patient up to bathroom with asst. Patient require 1 person assist. Dressing to left buttock dry and intact.
[2020-04-25 02:58] LABS: CLARITY,URINE CLEAR (CLEAR); COLOR,URINE YELLOW (YELLOW); LEUKOCYTE ESTERASE ,URINE NEGATIVE (NEGATIVE); NITRITE,URINE NEGATIVE (NEGATIVE); PROTEIN,URINE DIPSTICK NEGATIVE (NEGATIVE)
[2020-04-25 02:59] LABS: BILIRUBIN,URINE NEGATIVE (NEGATIVE); KETONES,URINE NEGATIVE (NEGATIVE); URINE UROBILINOGEN 0.2 mg/dL (0.2 - 1)
[2020-04-25 03:02] LABS: BACTERIA,URINE RARE /HPF; EPITHELIAL CELLS,URINE FEW /LPF; RBC,URINE 0-5 /HPF (0-5); WBC,URINE (MAN) 0-5 /HPF (0-5)
[2020-04-25 04:56] LABS: BASOPHILS # (AUTO) 0.1 (0.0-0.1); BASOPHILS % 0.5 % (0.0-1.0); EOSINOPHILS # (AUTO) 0.6 (0.0-0.4); EOSINOPHILS % 5.7 % (0.0-6.0); HEMATOCRIT 33.8 % (34.2-44.1); HEMOGLOBIN 11.5 g/dL (12.0-16.0); LYMPHOCYTES # (AUTO) 1.8 (1.0-3.2); LYMPHOCYTES % 17.3 % (18.0-39.1); MEAN CORPUSCULAR HEMOGLOBIN 29.9 pg (28-32); MEAN CORPUSCULAR VOLUME 87.8 fL (81-99); MONOCYTES # (AUTO) 1.2 (0.2-0.8); MONOCYTES % 11.7 % (4.4-11.3); NEUTROPHILS # (AUTO) 6.3 (2.1-6.9); NEUTROPHILS % 61.5 % (38.7-80.0); PLATELET COUNT 241 x10e3/uL (140-360); RED BLOOD COUNT 3.85 x10e6/uL (3.6-5.1); RED CELL DISTRIBUTION WIDTH 13.1 % (11.7-14.4)
[2020-04-25 05:19] LABS: ALANINE AMINOTRANSFERASE 15 IU/L (0-55); ALBUMIN 3.3 g/dL (3.5-5.0); ALBUMIN/GLOBULIN RATIO 1.3 (0.8-2.0); ALKALINE PHOSPHATASE 72 IU/L (40-150); ANION GAP 11.2 mmol/L (8-16); BLOOD UREA NITROGEN 11 mg/dL (7-26); BUN/CREATININE RATIO 14 (6-25); CALCIUM 8.8 mg/dL (8.4-10.2); CARBON DIOXIDE 23 mmol/L (22-29); CHLORIDE 104 mmol/L (98-107); CREATININE, SERUM 0.79 mg/dL (0.57-1.11); EST GLOMERULAR FILTRATION RATE > 60 ML/MIN (60-); GLUCOSE 94 mg/dL (74-118); POTASSIUM 4.2 mmol/L (3.5-5.1); SODIUM 134 mmol/L (136-145)
--- NOTE | 2020-04-25 05:33 | NUR ---
Patient slightly confused but resting quitly at this time.
--- NOTE | 2020-04-25 07:00 | NUR ---
Received bedside shift report from off going night nurse. Patient in stable condition, No s/s of distress noted. Telemetry applied. IV site asymptomatic and patent, transparent dressing applied C/D/I. Bed alarm applied. Bed in lowest position and locked. Call light within reach.
[2020-04-25] MEDS: DOCUSATE SODIUM 100 MG CAP PO SCH ×2 (08:46→17:14)
[2020-04-25] MEDS: FAMOTIDINE 20 MG/2 ML VIAL IV SCH ×2 (08:46→17:14)
[2020-04-25] MEDS: SODIUM CHLORIDE 1 GM TAB PO SCH ×3 (08:46→20:50)
--- NOTE | 2020-04-25 11:59 | NUR ---
MEDICARE LETTER EXPLAINED AND GIVEN TO PT, PT VERBALIZED UNDERSTANDING, SIGNED COPY IS PLACED IN THE CHART.
--- NOTE | 2020-04-25 12:55 | NUR ---
Renal Progress notes Subjective - events noted/chart reviewed O - BP 153/83 mm Hg, P 80, RR 19, SPO 2 98 P/E - Gen - not in acute distress Chest - CTAB heart - RRR Abd - soft, NT/ND Neuro - non focal labs - reviewed, Na today 134 Assessment & plan - - hyponatremia - recovered to 134 - continue with fluid restriction and salt tabs - strict I & O - daily BMP unless gets discharged hypertension - uncontrolled - monitor on metoprolol
--- NOTE | 2020-04-25 15:23 | NUR ---
Nutrition Screen Note RD Recommendation for Physician: - Continue diet as ordered Plan of Care: RD following, monitoring for tolerance and adequacy Nutrition reason for involvement: EVP CHIEF EXPLORATION OFFICER consult diet education for SIADH Primary Diagnose(s): SIADH, hyponatremia PMH: Irritable bowel syndrome, hypertension, gastroesophageal reflux disease, hyperlipidemia, chronic low back pain, osteoarthritis, osteoporosis, diverticulitis, severe degenerative joint disease, idiopathic ADH syndrome with low sodium, gastritis, distal esophagitis and small hiatal hernia, severe chronic constipation, hemorrhoids. Ht: 62in Wt: 111lb BMI: 20.3kg/m2 IBW: 110lb +/- 10% RD Assessment: Chart reviewed. Labs and meds reviewed. 89yo F, who was admitted for AMS due to hyponatremia and SIADH. Per MD, pt is on fluids restriction and salt tabs. Per RN, pt was eating fine without any nausea or vomiting. RD was consulted for diet education on SIADH. Emphasized fluids restriction and regular salt intake. Pt is not a great candidate for diet education. RN is present during my time of visit. Called son, Dylan Crisostomo, to further discussed diet. Will continue to follow. Current Diet: Regular diet Malnutrition Evaluation The patient does not meet criteria for a specified degree of malnutrition at this time. Will re-evaluate at follow-up as appropriate. Diet Education Needs Assessment: Diet education is provided. Nutrition Care Level: low Signed: Nelly Moncada MS, RD, LD
--- NOTE | 2020-04-25 19:51 | NUR ---
Completed bedside shift report and rounding with oncoming night nurse. Patient in stable condition, no s/s of distress noted. Telemetry applied. IV site asymptomatic and patent, transparent dressing applied C/D/I. bed alarm applied. Bed in lowest position and locked. call light within reach.
[2020-04-25] MEDS ORDERED: SODIUM CHLORIDE1 GM PO (20:12)
--- NOTE | 2020-04-25 21:15 | Discharge Summary ---
CONSULTING PHYSICIAN: Dr. Vianca Rider. PCP: Dr. Abdon Bauer. CHIEF COMPLAINT: Confusion. HISTORY OF PRESENT ILLNESS: The patient is an 89-year-old female, admitted with altered mental status from baseline per her family. Per the emergency department physician documentation, the patient was here on Monday for sciatica, was alert, awake, and oriented x4. She drove herself to the hospital on 04/22/2020, presenting as "slow to normal" with complaints of dysuria and low back pain. Please see dictated history and physical for past medical, surgical, family, and social history. ALLERGIES: SHE HAS AN ALLERGY TO GABAPENTIN. ADMITTING DIAGNOSES: 1. Altered mental status from baseline; possibly due to hyponatremia and/or metabolic encephalopathy. 2. Acute hyponatremia, possibly syndrome of inappropriate antidiuretic hormone. 3. Acute kidney injury versus chronic kidney disease with dehydration. 4. Controlled hypertension. 5. Chronic low back pain, severe degenerative joint disease, severe osteoporosis, ambulatory dysfunction. 6. Hyperlipidemia. DISCHARGE DIAGNOSES: 1. Syndrome of inappropriate antidiuretic hormone with hyponatremia until proven otherwise. 2. Dehydration, improving. 3. Leukocytosis, improving. 4. Controlled hypertension. 5. Chronic low back pain, severe degenerative joint disease, severe osteoporosis, ambulatory dysfunction. 6. Hyperlipidemia. HOSPITAL COURSE: Please see history and physical for admitting laboratory data. She had a CTA of the brain, which showed no intracranial abnormalities, particularly no mass, hemorrhage, or acute cortical infarct. Chest x-ray showed hyperinflated lungs. No focal pneumonia or pulmonary edema. MRI of the lumbar spine showed mild foraminal stenosis on the right at L1-L2 and L2-L3 as well as on the left at L3-L4, L4-L5, and L5-S1 due to degenerative changes and levoscoliosis, multilevel spondylosis, otherwise without significant spinal cord stenosis. The patient's sodium level gradually improved. On admission; her sodium was 119. She did have a considerable shift from 04/22 at 119 to sodium level of 129 on 04/23. Today on the day of discharge, her sodium was 134, near normal. We will continue her sodium chloride tabs 2 g p.o. t.i.d. at home, prescription provided. The patient was on normal saline at 100 mL/hour IV for some time and that was discontinued as she improved. Today on the day of discharge, BUN 11, creatinine 0.79, estimated GFR greater than 60. LFTs within normal limits. WBC 10.19, hemoglobin 11.5, hematocrit 33.8, platelets 241. Urinalysis was collected today via straight cath. Specific gravity 1.02, protein negative, ketones negative, trace amount of blood, negative for nitrite, negative for leukocyte esterase, rbc 0 to 5, wbc 0 to 5, urine bacteria rare. Her most recent urine osmolality was 397 on 04/22. Her urine sodium on 04/22 was 20. Serum osmolality on 04/22 was 244. Most recent vital signs prior to discharge at 1752 were temperature of 98.4, heart rate 72, respirations 19, blood pressure 165/77, oxygen saturation 99%. Orders have been entered for case management for home health, physical therapy as well as custodial for home safety evaluation and medication education. The patient to follow up with her PCP, Dr. Bauer in 1 to 2 weeks. Follow up with Dr. Rider in his office for Nephrology in 1 to 2 weeks. Case was discussed with Dr. Acosta with Nephrology today and he states the patient is okay to be discharged home. She will need followup blood work in 2 weeks. The patient ambulated with physical therapy today. Per physical therapist's note, she was eager to walk in great effort. She ambulated well with a few standing rest breaks and ambulated approximately 300 feet with slow, fair steady gait pattern, short and stride with good safety when changing her direction. Dictated by Kelby Montemayor, JATIN MD DAMASO Latham/JOANNAL /[id number]
== END 2020-04-25 21:24 | disposition home or self-care (01) | DRG 643 ==
LOC: ER 09:35 → ERHOLD 10:16 → MED/SURG 12:13 → OBSVTOIN 04-24 10:49
PROVIDERS: ADMIT Internal Medicine; ATTEND Internal Medicine
DX: E22.2 Syndrome of inappropriate secretion of antidiuretic hormone (principal); G93.41 Metabolic encephalopathy; N17.9 Acute kidney failure, unspecified; M54.5 Low back pain; E78.5 Hyperlipidemia, unspecified; M19.90 Unspecified osteoarthritis, unspecified site; M81.0 Age-related osteoporosis without current pathological fracture; E86.0 Dehydration; Z74.09 Other reduced mobility; I10 Essential (primary) hypertension; M47.9 Spondylosis, unspecified
CPT/HCPCS: 36415; 70450; 71045; 72148; 80053; 80061; 80307; 80329; 81001; 82140; 82550; 82553; 82947; 83036; 83735; 83935; 84100; 84295; 84300; 84436; 84443; 84479; 84484; 84520; 84550; 85025; 85610; 85730; 87086; 93005; 97139; 99284; G0378; J0696; J2270; J2405; J7030; U0002

== ENCOUNTER → 2020-06-01 | Outpatient (CLI) | payer MEDICARE, OTHER ==
[~2020-06-01] MED LIST changes: +GABAPENTIN100 MG PO; +PROPAFENONE HC150 MG PO; +PROTONIX20 MG PO
--- NOTE | 2020-06-01 14:56 | Diagnostic Imaging Report ---
Modified barium swallow exam with speech pathology service CLINICAL HISTORY: Concern for pharyngeal dysphasia and aspiration Fluoro Time: 2.1 min. Dose: 7.6 mGy IMPRESSION: Please see the speech pathology service report for details. Barium contrast of multiple consistencies is given to the patient to swallow. Fluoroscopic observation is performed during swallowing. No aspiration is noted. Significant residue is noted with thin liquids within the performed sinus and vallecula. Please see speech pathologist report for further details. Signed by: Ángel Rodrigues MD on 06/01/2020 2:52 PM
== END ==
LOC: DX 09:33
PROVIDERS: ATTEND Otolaryngology
DX: R13.13 Dysphagia, pharyngeal phase (principal); R49.0 Dysphonia; K21.9 Gastro-esophageal reflux disease without esophagitis; R09.82 Postnasal drip
CPT/HCPCS: 74230; 92526; 92611; U0002

== ENCOUNTER 2020-06-03 14:20 | Emergency (ER) | payer MEDICARE, OTHER ==
[~2020-06-03] VITALS: Ht 157.5 cm; Wt 50.3 kg
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
--- OUTSIDE RECORDS SUMMARY | 2020-06-03 15:15 | XMS REPORT | Continuity of Care Document ---
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 Test Item Value Reference Range Interpretation Comments Total Protein (test code = 2885-2) 5.9 6.5-8.1 [facility]aleerum or plasma albumin measurement (mass/volume)2020-04-25 04:42:00* Test Item Value Reference Range Interpretation Comments Albumin (test code = 1751-7) 3.3 3.5-5.0 [facility] CenterPlasma globulin measurement (mass/volume) 2020-04-25 04:42:00* Test Item Value Reference Range Interpretation Comments Globulin (test code = 88686-8) 2.6 2.3-3.5 [facility]aleerum or plasma albumin/globulin mass fyzpf9885-88-30 04:42:00* Test Item Value Reference Range Interpretation Comments Albumin/Globulin Ratio (test code = 1759-0) 1.3 0.8-2.0 [facility]ale[facility]um or plasma alkaline phosphatase measurement (enzymatic activity/volume)2020-04-25 04:42:00* Test Item Value Reference Range Interpretation Comments Alkaline Phosphatase (test code = 6768-6) 72 40-150 [facility] CenterUrine color crolkzbkxndok3812-98-94 02:50:00* Test Item Value Reference Range Interpretation Comments Urine Color (test code = 5778-6) YELLOW YELLOW [facility] CenterUrine tudzpey5087-51-09 02:50:00* Test Item Value Reference Range Interpretation Comments Urine Clarity (test code = 49654-6) CLEAR CLEAR [facility]alepecific gravity of Urine by Test strip 2020-04-25 02:50:00* Test Item Value Reference Range Interpretation Comments Urine Specific [place] (test code = 5811-5) 1.020 1.010-1.02 5 [facility] CenterUrine pH measurement by automated test mwpix9850-44-78 02:50:00* Test Item Value Reference Range Interpretation Comments Urine pH (test code = 45784-0) 7 5-7 [facility] CenterUrine leukocyte esterase detection by dsgwpjrz6486-80-07 02:50:00* Test Item Value Reference Range Interpretation Comments Urine Leukocyte Esterase (test code = 5799-2) NEGATIVE NEGATIVE [facility] CenterUrine nitrite oiahsmuvj0908-19-49 02:50:00* Test Item Value Reference Range Interpretation Comments Urine Nitrite (test code = 21270-3) NEGATIVE NEGATIVE [facility] CenterUrine protein measurement by test strip (mass/volume)2020-04-25 02:50:00* Test Item Value Reference Range Interpretation Comments Urine Protein (test code = 5804-0) NEGATIVE NEGATIVE [facility] CenterUrine glucose jzqerqsbr5862-00-73 02:50:00* Test Item Value Reference Range Interpretation Comments Urine Glucose (UA) (test code = 2349-9) NEGATIVE NEGATIVE [facility] CenterUrine ketones detection by automated test dlpqw0044-17-00 02:50:00* Test Item Value Reference Range Interpretation Comments Urine Ketones (test code = 86905-8) NEGATIVE NEGATIVE [facility] CenterUrine urobilinogen measurement by test strip (mass/volume)2020-04-25 02:50:00* Test Item Value Reference Range Interpretation Comments Urine Urobilinogen (test code = 76749-5) 0.2 0.2-1 [facility] CenterUrine total bilirubin measurement (mass/volume)2020-04-25 02:50:00* Test Item Value Reference Range Interpretation Comments Urine Bilirubin (test code = 1978-6) NEGATIVE NEGATIVE [facility] CenterUrine erythrocytes szucwsyle4149-99-55 02:50:00* Test Item Value Reference Range Interpretation Comments Urine Blood (test code = 77020-8) TRACE NEGATIVE [facility] CenterAutomated urine sediment leukocyte count by microscopy (number/high power field)2020-04-25 02:50:00* Test Item Value Reference Range Interpretation Comments Urine WBC (test code = 5821-4) 0-5 0-5 [facility] CenterErythrocytes detection in urine sediment by light morjtghsvd2360-04-02 02:50:00* Test Item Value Reference Range Interpretation Comments Urine RBC (test code = 50185-5) 0-5 0-5 [facility] CenterBacteria detection in urine sediment by light txfcewiucq7372-08-72 02:50:00* Test Item Value Reference Range Interpretation Comments Urine Bacteria (test code = 08781-9) RARE NONE [facility] CenterEpithelial cells detection in urine sediment by light vsmvzcnpfo8120-61-44 02:50:00* Test Item Value Reference Range Interpretation Comments Urine Epithelial Cells (test code = 92430-7) FEW NONE [facility]aleerum or plasma uric acid measurement (mass/volume)2020-04-23 15:32:00* Test Item Value Reference Range Interpretation Comments Uric Acid (test code = 3084-1) 2.9 2.6-8.0 [facility] CenterFluoroscopic procedure less than one hour pxazbvhq9086-09-82 04:40:00* Test Item Value Reference Range Interpretation Comments Differential Total Cells Counted (test code = Kamryn velez Total Cells Counted) 100 [facility] blood neutrophils/100 leukocytes 2020-04-23 04:40:00* Test Item Value Reference Range Interpretation Comments Neutrophils % (Manual) (test code = 70389-3) 77 40-74 [facility] blood band neutrophils form/100 guhxifwotw9512-27-32 04:40:00* Test Item Value Reference Range Interpretation Comments Band Neutrophils % (test code = 764-1) 5 [facility] blood lymphocytes/100 leukocytes 2020-04-23 04:40:00* Test Item Value Reference Range Interpretation Comments Lymphocytes % (Manual) (test code = 737-7) 9 19-48 [facility] blood monocytes/100 leukocytes 2020-04-23 04:40:00* Test Item Value Reference Range Interpretation Comments Monocytes % (Manual) (test code = 744-3) 8 3.4-9.0 [facility] blood eosinophil count as percentage of total tvbrscrrdo3206-70-56 04:40:00* Test Item Value Reference Range Interpretation Comments Eosinophils % (Manual) (test code = 714-6) 1 0-7 [facility] CenterPhosphorus lysfguzjzuh1404-84-22 04:40:00 * Test Item Value Reference Range Interpretation Comments Phosphorus Level (test code = KYU5644) 3.0 2.3-4.7 [facility]aleerum or plasma creatine kinase measurement (enzymatic activity/volume)2020-04-23 04:40:00* Test Item Value Reference Range Interpretation Comments Creatine Kinase (test code = 2157-6) 58 29-168 [facility]aleerum or plasma creatine kinase MB measurement (mass/volume)2020-04-23 04:40:00* Test Item Value Reference Range Interpretation Comments Creatine Kinase MB (test code = 94880-8) 2.60 0-5.0 [facility] CenterTroponin I measurement by highly sensitive enzyme iygdswakyit9654-99-72 04:40:00* Test Item Value Reference Range Interpretation Comments Troponin I (test code = 92946-3) 0.005 0-0.300 [facility] CenterFluoroscopic procedure less than one hour vdhdinct4759-80-23 04:39:00* Test Item Value Reference Range Interpretation Comments Hemoglobin A1c Percent (test code = Hemoglobin A1c Percent) 5.2 4.0-7.0 [facility] CenterAmmonia Eix-wAxy3872-02-06 04:39:00* Test Item Value Reference Range Interpretation Comments Ammonia (test code = 42143-8) 65 31-123 [facility] CenterMRI SPINE LUMBAR LP8705-33-11 12:53:00 [place] [address] Patient Name: FRANK PERRY MR #: [id number] : 1930 Age/Sex: 89/F Req #: [id number] Adm Physician: HAYLIE MORAN MD Ordered by: LILIANA GARCIA MD t #: [id number] Location: MED/SURG Room/Bed : [facility] Procedure: [id number] MRI/MRI SPINE SHERWIN SALMERON Exam Date: Exam Time: REPORT STATUS: Signed EXAMINATION: MRI of the lumbar spine without contrast HISTORY: Chronic low back pain COMPARISON: Abdo men CT 12/01/2019 TECHNIQUE: Sagittal T1, T2, STIR; axial T2 and proton density . FINDINGS: It is assumed that there are 5 lumbar vertebrae. C urvature/Alignment: Levoscoliosis centered at L2. Right lateral spinal listhes is at L1-2. Spondylolisthesis at L1-L2. Minimal retrolisthesis at T12-L1. Vertebrae: No evidence of recent fracture, infection, or neoplasm. Chronic endplate degenerative changes at T12-S1. Benign hemangioma in the T12 vertebr al body. Conus: Normal, terminating at L1 Cauda equina: No abno rmalities. 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 Lower thoracic: Minimal disc bulge at T11-T12 and T12-L1. Parasp inal soft tissues: Unremarkable. Degenerative changes: Decreased disc height and T2 signal intensity, symmetrical/asymmetric disc bulges and margina l lateral osteophytes at all levels. L1-L2: Asymmetric right disc osteophy te and facet arthrosis. Moderate right foraminal stenoses. L2-L3: Asy mmetric right disc osteophyte atherosclerosis. Mild right foraminal stenoses. L3-L4: Interbody fusion. Asymmetric left disc osteophyte and facet ar throsis. Mild right and moderate left foraminal stenoses. L4-L5: Asymme tric left disc osteophyte and facet arthrosis. Mild left foraminal stenoses. L5-S1: Asymmetric left disc osteophyte and facet arthrosis. Mild left foraminal stenoses. Sacroiliac joints: Unremarkable. IMPRESSION: 1. Mild foraminal stenosis on the right at L1-2 and L2-3 as well as on the left at L3-L4, L4-L5 and L5-S1 due to degenerative changes and levoscoliosis. 2. Multilevel spondylosis otherwise without significant spinal canal stenosi s. Signed by: Dr. Cornelius Graves M.D. on 04/22/2020 1:02 PM Dictated By: CORNELIUS GRAVES MD [address] scribed By: ROLO on 04/22/20 1302 COPY TO: LILIANA GARCIA MD Fluoroscopic procedure less than one hour dffthoay4602-89-17 10:39:00* Test Item Value Reference Range Interpretation Comments Coronavirus (PCR) (test code = Coronavirus (PCR)) NOT DETECTED NOTD ETECTED [employer] Aptima SARS-CoV-2 assay is a nucleic amplification test intended for the qualitative detection of RNA from SARS-CoV-2 from nasopharyngeal (ASSISTANT PURCHASING MANAGER) specimens . It is used under Emergency Use Authorization (EUA) by FDA.A positive result is indicative of the presence of SARS-CoV-2 RNA. Clinical correlation with patient history and other diagnostic information is necessary to determine patient infe ction status.A negative (Not Detected) result does not preclude SARS-CoV-2 infec tion. Clinical Correlation with patient history and other diagnostic information should be used in patient management decisions.Invalid: Unable to generate a va lid result on this specimen. Please submit a new specimen for reprat testing oc clinically indicated.Tesing performed by:[facility] [address] [place] [address] [id number], Elizabeth Lazcano MD, PhD [facility] CenterUrine opiates screening ecvn7878-78-18 10:16:00* Test Item Value Reference Range Interpretation Comments Urine Opiates Screen (test code = 02682-2) NEGATIVE NEGATIVE ALL TESTS PERFORMED MANUALLY ON [employer].st Classifieds TOX/SEE TESTTitus Regional Medical CenterBarbiturates screen, vxivj4629-10-17 10:16:00* Test Item Value Reference Range Interpretation Comments Urine Barbiturates Screen (test code = 805931939) NEGATIVE NEGA TIVE [facility] CenterUrine phencyclidine detection by screening dtfyvn5783-18-19 10:16:00* Test Item Value Reference Range Interpretation Comments Urine Phencyclidine Screen (test code = 86700-7) NEGATIVE NEGAT ASHLEY [facility] CenterUrine amphetamines detection by screen method > 1000 ng/kQ6406-94-07 10:16:00* Test Item Value Reference Range Interpretation Comments Urine Amphetamines Screen (test code = 76346-9) NEGATIVE NEGATI VE [facility] CenterFluoroscopic procedure less than one hour oixhutnw8461-04-51 10:16:00* Test Item Value Reference Range Interpretation Comments Urine Methamphetamines Screen (test code = Urine Metha mphetamines Screen) NEGATIVE NEGATIVE [facility] CenterUrine benzodiazepines detection by screening hdjitl6404-56-61 10:16:00* Test Item Value Reference Range Interpretation Comments Urine Benzodiazepines Screen (test code = 05716-7) NEGATIVE NEG ATIVE [facility] CenterUrine cocaine measurement (mass/volume) 2020-04-22 10:16:00* Test Item Value Reference Range Interpretation Comments Urine Cocaine Screen (test code = 3398-5) NEGATIVE NEGATIVE [facility] CenterUrine cannabinoids detection by screening bteade7730-50-42 10:16:00* Test Item Value Reference Range Interpretation Comments Urine Cannabinoids Screen (test code = 38180-5) NEGATIVE NEGATI VE THESE RESULTS ARE FOR MEDICAL TREATMENT ONLYTHIS REPORT CONTAINS UNCONFIR MED SCREENING RESULTS*POSITIVE RESULTS WILL BE CONFIRMED BY REFERENCE LAB UPON R EQUEST CUT-OFFDRUG CLASS CONCENTRATION ng/mLAmphetamines 1000Methamphetamines 1000Cocaine 300Opiate 300Phencyc lidine 25Cannabinoid 50Barbiturates 300Benzodiazepine 300Methadone 300[facility] CenterUrine methadone nctzro7058-18-79 10:16:00* Test Item Value Reference Range Interpretation Comments Urine Methadone Screen (test code = 66697-8) NEGATIVE NEGATIVE THESE RESULTS ARE FOR MEDICAL TREATMENT ONLYTHIS REPORT CONTAINS UNCONFIR MED SCREENING RESULTS*POSITIVE RESULTS WILL BE CONFIRMED BY REFERENCE LAB UPON R EQUEST CUT-OFFDRUG CLASS CONCENTRATION ng/mLAmphetamines 1000Methamphetamines 1000Cocaine Metabolite 300Opiate 300Phencyc lidine 25Cannabinoid 50Barbiturates 300Benzodiazepine 300Methadone 300[facility] CenterUrine sodium measurement (moles/volume)2020-04-22 10:16:00* Test Item Value Reference Range Interpretation Comments Urine Random Sodium (test code = 2955-3) 20 [facility] CenterOsmolality of Puupu2748-35-63 10:16:00* Test Item Value Reference Range Interpretation Comments Urine Osmolality (test code = 2695-5) 397 . 24 hr : 300 - 900 Random: 50 - 1400 After 12hr fluid restriction: >850Performed at: [facility] [id number] Director: Drew Julien MD, Phone: [phone] Regional Medical CenterCT BRAIN KU7400-29-16 10:03:00 [facility] [address] [place] [address] Patient Name: FRANK PERRY MR #: [id number] : 1930 Age/Sex: 89/F Req #: [id number] Adm Physician: Ordered by: LILIANA GARCIA MD Report #: [id number] Location: ER Room/Bed: Procedure: [id number] CT/CT BRAIN WO Exam Date: 04/22/20 Exam Time: 929 REPORT STATUS: Signed EXAMINATION: Head CT HISTORY: Alteration of consciousness COMPARISON: None. TECHNIQUE: Helical a xial images of the head were obtained. Reformatted coronal and sagittal images from the axial data. Dose modulation, iterative reconstruction, and/or weigh t based adjustment of the mA/kV was utilized to reduce the radiation dose to a s low as reasonably achievable. Image quality: Motion/streaking artifact limit s the evaluation of the skull base and posterior cranial fossa. FINDIN GS: Parenchyma: 1. No abnormal densities. Normal prominent perivas cular space inferior to the right putamen is incidentally noted. 2. No mass or hemorrhage. No CT evidence of acute territorial vascular insult. Extra-axial spaces:No abnormal density. No extra-axial fluid collections Brain volume: Normal for age. Ventricles: No hydrocephalus or dis placement. Arteries: No density suggestive of thrombus. Dural s inuses: No abnormal density. Foramen magnum: No mass, Chiari malformatio n, or basilar invagination. Sella: No obvious mass. Paranasal/m astoid sinuses: Imaged portions unremarkable. Skull/Scalp: No lytic or b lastic lesions. No fractures. IMPRESSION: No intracranial abnormalit ies, particularly no mass, hemorrhage or acute cortical infarct. Signed b y: Dr. Cornelius Graves M.D. on 04/22/2020 10:05 AM Dictated By: CORNELIUS GRAVES MD 100 Transcribed By: VESTA WALTERS on 04/22/20 100 COPY TO: LILIANA GARCIA MD CHEST SINGLE (PORTABLE)2020-04-22 09:56:00 [place] [address] Patient Name: FRANK PERRY MR #: [id number] : 1930 Age/Sex: 89/F Req #: [id number] Adm Physician: Ordered by: LILIANA GARCIA MD Report #: [id number] Location: ER Room/Bed: Procedure: [id number] DX/CHEST SINGLE (PORTABLE) Exam Date: 04/22/20 Exam Time: 929 REPORT STATUS: Signed EXAMINATION: C HEST SINGLE (PORTABLE) INDICATION: Altered mental status COMPARISO N: None FINDINGS: LINES/TUBES:None LUNGS:The lungs are hyper inflated. No focal consolidation or pulmonary edema. PLEURA:No pleural effu jannie or pneumothorax. MEDIASTINUM:The cardiomediastinal silhouette appears normal in size and shape. Atherosclerotic calcifications of the thoracic aorta . BONES/SOFT TISSUES:No acute osseous injury. ABDOMEN:No free air unde r the diaphragm. IMPRESSION: Hyperinflated lungs. No focal pneumonia or pulmonary edema. Signed by: Yumiko Rich MD on 04/22/2020 9:57 AM Di ctated By: YUMIKO RICH MD Transcribed By: ROLO on 04/22/20956 COPY TO: LILIANA GARCIA MD Prothrombin time (PT) in platelet poor plasma by coagulation assay 2020-04-22 09:17:00* Test Item Value Reference Range Interpretation Comments Prothrombin Time (test code = 5902-2) 12.7 11.9-14.5 [facility] CenterINR in Platelet poor plasma by Coagulation syckr2803-32-78 09:17:00* Test Item Value Reference Range Interpretation Comments Prothromb Time International Ratio (test code = 6301-6) 0.91 Oral Anticoagulant Therapy INR Values:1. Low Intensity Therapy 1.5 - 2.02 . Moderate Intensity Therapy 2.0 - 3.03. High Intensity Therapy(1) 2.5 - 3. 54. High Intensity Therapy(2) 3.0 - 4.05. Panic Value INR > 5.0 [facility] CenterActivated partial thromboplastin time (aPTT) in platelet poor plasma by coagulation cwvwz2633-39-53 09:17:00* Test Item Value Reference Range Interpretation Comments Activated Partial Thromboplast Time (test code = 83848-2) 29.0 23.8-35.5 [facility] CenterOsmolality of Serum or Plasma by udozdwfhquk9707-97-86 09:17:00* Test Item Value Reference Range Interpretation Comments Serum Osmolality (test code = 81830-8) 244 278-305 [facility]aleerum or plasma magnesium measurement (mass/volume)2020-04-22 09:17:00* Test Item Value Reference Range Interpretation Comments Magnesium Level (test code = 98084-7) 2.0 1.3-2.1 [facility]aleerum or plasma triglyceride measurement (mass/volume)2020-04-22 09:17:00* Test Item Value Reference Range Interpretation Comments Triglycerides Level (test code = 2571-8) 145 0-149 [facility] Sunny[facility]aleerum or plasma cholesterol measurement (mass/volume)2020-04-22 09:17:00* Test Item Value Reference Range Interpretation Comments Cholesterol Level (test code = 2093-3) 220 0-199 Less than 200 mg/dL Low Pbrf599 - 239 mg/dL Borderline Kzbt718 m g/dl and greater High Risk [facility]aleerum or plasma cholesterol in LDL measurement (mass/volume) 2020-04-22 09:17:00* Test Item Value Reference Range Interpretation Comments LDL Cholesterol (test code = 2089-1) 147 60-130 [facility]aleerum or plasma cholesterol in HDL measurement (mass/volume)2020-04-22 09:17:00* Test Item Value Reference Range Interpretation Comments HDL Cholesterol (test code = 2085-9) 44 40-60 [facility]aleerum or plasma total cholesterol/cholesterol in HDL mass vjwlk6714-83-55 09:17:00* Test Item Value Reference Range Interpretation Comments Cholesterol/HDL Ratio (test code = 9830-1) 5.0 3.0-3.6 [facility]aleerum or plasma acetaminophen measurement by screening method (mass/volume)2020-04-22 09:17:00* Test Item Value Reference Range Interpretation Comments Acetaminophen Level (test code = 19721-2) < 3.0 10-30 [facility] CenterFree thyroxine uosiw3651-76-48 09:17:00* Test Item Value Reference Range Interpretation Comments Free Thyroxine Index (test code = 44749-8) 3.3154 1.4-3.8 [facility] or plasma thyroxine (T4) measurement (mass/volume)2020-04-22 09:17:00* Test Item Value Reference Range Interpretation Comments Thyroxine (T4) (test code = 3026-2) 9.47 4.5-10.9 Our current method for Total T4 is not recommended for use as the only marker fo r evaluating patients for thyroid disorders.[facility]um or plasma triiodothyronine resin uptake (T3RU)2020-04-22 09:17:00* Test Item Value Reference Range Interpretation Comments Triiodothyronine (T3) Uptake (test code = 3050-2) 35.01 22.5 -37.0 [facility]aleerum or plasma thyrotropin measurement by detection limit <= 0.005 miu/l (units/volume)2020-04-22 09:17:00* Test Item Value Reference Range Interpretation Comments Thyroid Stimulating Hormone (TSH) (test code = 47180-6) 1.095 0.350-4.940 [facility] CenterPELVIS AP 1-2 ZYVQV7559-90-11 13:41:00 [facility] [address] [address] Patient Name: FRANK PERRY MR #: [id number] : 1930 Age/Sex: 89/F Req #: [id number] Adm Physician: Ordered by: LILIANA GARCIA MD Repor t #: [id number] Location: ER Room/Bed : Procedure: [id number] DX/PELVIS AP 1-2 VIEWS Exam Date: 04/19/20 Exam Time: 1220 REPORT STATUS: Signed Lumbar Spine Radiog raphs: 3 views. Pelvis radiograph: One view HISTORY: Lower back and pelvi c pain after recent fall. COMPARISON: 08/09/2019. FINDINGS: Lumbar s pine: Alignment: There is mild degenerative levoscoliosis of the lumbar spine. Vertebral bodies: Normal height. No acute fracture. Intervertebral disc: Th ere is multilevel degenerative disease characterized by joint space narrowing, endplate sclerosis and marginal osteophytes. Facet: There is multilevel facet arthrosis with no evidence of dislocation. Soft tissues: There is atheroscler otic calcification of the abdominal aorta. Pelvis: No acute fracture or dis location. There are moderate degenerative changes of the bilateral hips charac terized by asymmetric joint space narrowing, subchondral cystic changes and ma rginal osteophytes. The sacroiliac joints are symmetric. No pubic symphyseal w idening. Enthesophytes at the right greater trochanter. No focal soft tissue a bnormality. IMPRESSION: 1. Lumbar spondylosis with multilevel degener ative disease. No acute fracture or dislocation. 2. No acute fracture or di slocation of the pelvis. Moderate osteoarthritis of the bilateral hips Si gned by: Serene Boothe MD on 04/19/2020 1:57 PM Dictated By: SERENE BOOTHE MD 56 Transcribed B y: ROLO on 04/19/201356 COPY TO: LILIANA GARCIA MD SP LUMBAR, COMPLETE MIN 6VO2883-98-93 13:41:[address] [address] Patient Name: FRANK PERRY MR #: [id number] : 1930 Age/Sex: 89/F Req #: [id number] Adm Physician: Ordered by: LILIANA GARCIA MD Report #: [id number] Location: ER Room/Bed: Procedure: [id number] DX/SP LUMBAR, CO MPLETE MIN 4VW Exam Date: 04/19/20 Exam Time: 1220 REPORT STATUS: Signed Lumbar Spin e Radiographs: 3 views. Pelvis radiograph: One view HISTORY: Lower back a nd pelvic pain after recent fall. COMPARISON: 08/09/2019. FINDINGS: Lumbar spine: Alignment: There is mild degenerative levoscoliosis of the lumba r spine. Vertebral bodies: Normal height. No acute fracture. Intervertebral disc: There is multilevel degenerative disease characterized by joint space na rrowing, endplate sclerosis and marginal osteophytes. Facet: There is multilev el facet arthrosis with no evidence of dislocation. Soft tissues: There is ath erosclerotic calcification of the abdominal aorta. Pelvis: No acute fractur e or dislocation. There are moderate degenerative changes of the bilateral hip s characterized by asymmetric joint space narrowing, subchondral cystic change s and marginal osteophytes. The sacroiliac joints are symmetric. No pubic symp hyseal widening. Enthesophytes at the right greater trochanter. No focal soft tissue abnormality. IMPRESSION: 1. Lumbar spondylosis with multilevel degenerative disease. No acute fracture or dislocation. 2. No acute fractu re or dislocation of the pelvis. Moderate osteoarthritis of the bilateral hips Signed by: Serene Boothe MD on 04/19/2020 1:57 PM Dictated By: FAHAD BOOTHE MD [id number] Trans cribed By: ROLO on 04/19/20 2116 COPY TO: LILIANA GARCIA MD Fluoroscopic procedure less than one hour bellhpfz9628-81-95 09:22:00* Test Item Value Reference Range Interpretation [...] complexity tests.Testing performed by [facility] [address] [phone] Director: Eliu Lozano M.D.CLIA # [id number] Fluoroscopic procedure less than one hour nubnufdm3508-54-75 09:22:00* Test Item Value Reference Range Interpretation [...] complexity tests.Testing performed by [facility] [address] [phone] Director: Eliu Lozano M.D.CLIA # [id number] Regional Medical CenterBl[facility] leukocytes automated count (number/volume)2020-01-31 08:58:00* Test Item Value Reference Range Interpretation Comments White Blood Count (test code = 6690-2) 7.09 4.8-10.8 [facility]Bl[facility] erythrocytes automated count (number/volume)2020-01-31 08:58:00* Test Item Value Reference Range Interpretation Comments Red Blood Count (test code = 789-8) 4.32 3.6-5.1 [facility] CenterBlood hemoglobin measurement (moles/volume)2020-01-31 08:58:00* Test Item Value Reference Range Interpretation Comments Hemoglobin (test code = 89154-5) 12.9 12.0-16.0 [facility] CenterAutomated blood hematocrit (volume fraction)2020-01-31 08:58:00* Test Item Value Reference Range Interpretation Comments Hematocrit (test code = 4544-3) 38.6 34.2-44.1 [facility] CenterAutomated erythrocyte mean corpuscular ouucde9245-32-49 08:58:00* Test Item Value Reference Range Interpretation Comments Mean Corpuscular Volume (test code = 787-2) 89.4 81-99 [facility] CenterAutomated erythrocyte mean corpuscular hemoglobin (mass per erythrocyte)2020-01-31 08:58:00* Test Item Value Reference Range Interpretation Comments Mean Corpuscular Hemoglobin (test code = 785-6) 29.9 28-32 [facility] CenterAutomated erythrocyte mean corpuscular hemoglobin concentration measurement (mass/volume)2020-01-31 08:58:00* Test Item Value Reference Range Interpretation Comments Mean Corpuscular Hemoglobin Concent (test code = 786-4) 33.4 31-35 [facility] CenterRDW HasHp-Dcz2536-40-15 08:58:00* Test Item Value Reference Range Interpretation Comments Red Cell Distribution Width (test code = 82028-6) 12.8 11.7 -14.4 [facility] CenterAutomated blood platelet count (count/volume)2020-01-31 08:58:00* Test Item Value Reference Range Interpretation Comments Platelet Count (test code = 777-3) 199 140-360 [facility] CenterAutomated blood segmented neutrophil count as percentage of total zfzqnuafbh3038-97-54 08:58:00* Test Item Value Reference Range Interpretation Comments Neutrophils (%) (Auto) (test code = 52397-9) 68.0 38.7-80.0 [facility] CenterAutomated blood lymphocyte count as percentage ot total jqrczvprhz2831-38-11 08:58:00* Test Item Value Reference Range Interpretation Comments Lymphocytes (%) (Auto) (test code = 736-9) 17.5 18.0-39.1 [facility] CenterAutomated blood monocyte count as percentage of total cldcpgbeht2275-74-53 08:58:00* Test Item Value Reference Range Interpretation Comments Monocytes (%) (Auto) (test code = 5905-5) 9.0 4.4-11.3 [facility] CenterAutomated blood eosinophil count as percentage of total ingylqumgn9443-74-46 08:58:00* Test Item Value Reference Range Interpretation Comments Eosinophils (%) (Auto) (test code = 713-8) 3.9 0.0-6.0 [facility] CenterAutomated blood basophil count as percentage of total ixmdemawkh4841-12-13 08:58:00* Test Item Value Reference Range Interpretation Comments Basophils (%) (Auto) (test code = 706-2) 0.6 0.0-1.0 [facility] CenterFluoroscopic procedure less than one hour pafqcgkj3958-57-03 08:58:00* Test Item Value Reference Range Interpretation Comments IM GRANULOCYTES % (test code = IM GRANULOCYTES %) 1.0 0.0- 1.0 [facility] CenterAutomated blood neutrophil count 2020-01-31 08:58:00* Test Item Value Reference Range Interpretation Comments Neutrophils # (Auto) (test code = 751-8) 4.8 2.1-6.9 [facility] CenterBlood lymphocytes count (number/volume) 2020-01-31 08:58:00* Test Item Value Reference Range Interpretation Comments Lymphocytes # (Auto) (test code = 98483-5) 1.2 1.0-3.2 [facility] monocytes automated count (number/volume)2020-01-31 08:58:00* Test Item Value Reference Range Interpretation Comments Monocytes # (Auto) (test code = 742-7) 0.6 0.2-0.8 [facility] CenterAutomated blood eosinophil count 2020-01-31 08:58:00* Test Item Value Reference Range Interpretation Comments Eosinophils # (Auto) (test code = 711-2) 0.3 0.0-0.4 [facility] CenterAutomated blood basophil count (count/volume)2020-01-31 08:58:00* Test Item Value Reference Range Interpretation Comments Basophils # (Auto) (test code = 704-7) 0.0 0.0-0.1 [facility] CenterFluoroscopic procedure less than one hour syhdnhmj1194-87-39 08:58:00* Test Item Value Reference Range Interpretation Comments Absolute Immature Granulocyte (auto (inocente t code = Absolute Immature Granulocyte (auto) 0.07 0-0.1 [facility] leukocytes automated count (number/volume)2020-01-31 08:58:00* Test Item Value Reference Range Interpretation Comments White Blood Count (test code = 6690-2) 7.09 4.8-10.8 [facility] erythrocytes automated count (number/volume)2020-01-31 08:58:00* Test Item Value Reference Range Interpretation Comments Red Blood Count (test code = 789-8) 4.32 3.6-5.1 [facility] CenterBlood hemoglobin measurement (moles/volume)2020-01-31 08:58:00* Test Item Value Reference Range Interpretation Comments Hemoglobin (test code = 94784-6) 12.9 12.0-16.0 [facility] CenterAutomated blood hematocrit (volume fraction)2020-01-31 08:58:00* Test Item Value Reference Range Interpretation Comments Hematocrit (test code = 4544-3) 38.6 34.2-44.1 [facility] CenterAutomated erythrocyte mean corpuscular kouqcr9067-11-03 08:58:00* Test Item Value Reference Range Interpretation Comments Mean Corpuscular Volume (test code = 787-2) 89.4 81-99 [facility] CenterAutomated erythrocyte mean corpuscular hemoglobin (mass per erythrocyte)2020-01-31 08:58:00* Test Item Value Reference Range Interpretation Comments Mean Corpuscular Hemoglobin (test code = 785-6) 29.9 28-32 [facility] CenterAutomated erythrocyte mean corpuscular hemoglobin concentration measurement (mass/volume)2020-01-31 08:58:00* Test Item Value Reference Range Interpretation Comments Mean Corpuscular Hemoglobin Concent (test code = 786-4) 33.4 31-35 [facility] CenterRDW YswZr-Xjm0191-76-15 08:58:00* Test Item Value Reference Range Interpretation Comments Red Cell Distribution Width (test code = 94867-6) 12.8 11.7 -14.4 [facility] CenterAutomated blood platelet count (count/volume)2020-01-31 08:58:00* Test Item Value Reference Range Interpretation Comments Platelet Count (test code = 777-3) 199 140-360 [facility] segmented neutrophil count as percentage of total bbgtzbrktm7259-88-94 08:58:00* Test Item Value Reference Range Interpretation Comments Neutrophils (%) (Auto) (test code = 72461-7) 68.0 38.7-80.0 [facility] CenterAutomated blood lymphocyte count as percentage ot total uxfpstdklz6541-98-96 08:58:00* Test Item Value Reference Range Interpretation Comments Lymphocytes (%) (Auto) (test code = 736-9) 17.5 18.0-39.1 [facility] CenterAutomated blood monocyte count as percentage of total qhmyywhrao6891-52-28 08:58:00* Test Item Value Reference Range Interpretation Comments Monocytes (%) (Auto) (test code = 5905-5) 9.0 4.4-11.3 [facility] CenterAutomated blood eosinophil count as percentage of total lwyrhmnxmj1963-56-04 08:58:00* Test Item Value Reference Range Interpretation Comments Eosinophils (%) (Auto) (test code = 713-8) 3.9 0.0-6.0 [facility] basophil count as percentage of total zmntktsfph6986-58-11 08:58:00* Test Item Value Reference Range Interpretation Comments Basophils (%) (Auto) (test code = 706-2) 0.6 0.0-1.0 [facility] CenterFluoroscopic procedure less than one hour qwaivwgl5991-93-08 08:58:00* Test Item Value Reference Range Interpretation Comments IM GRANULOCYTES % (test code = IM GRANULOCYTES %) 1.0 0.0- 1.0 [facility] CenterAutomated blood neutrophil count 2020-01-31 08:58:00* Test Item Value Reference Range Interpretation Comments Neutrophils # (Auto) (test code = 751-8) 4.8 2.1-6.9 [facility] CenterBlood lymphocytes count (number/volume) 2020-01-31 08:58:00* Test Item Value Reference Range Interpretation Comments Lymphocytes # (Auto) (test code = 37201-5) 1.2 1.0-3.2 [facility] CenterBl[facility] monocytes automated count (number/volume)2020-01-31 08:58:00* Test Item Value Reference Range Interpretation Comments Monocytes # (Auto) (test code = 742-7) 0.6 0.2-0.8 [facility] CenterAutomated blood eosinophil count 2020-01-31 08:58:00* Test Item Value Reference Range Interpretation Comments Eosinophils # (Auto) (test code = 711-2) 0.3 0.0-0.4 [facility] CenterAutomated blood basophil count (count/volume)2020-01-31 08:58:00* Test Item Value Reference Range Interpretation Comments Basophils # (Auto) (test code = 704-7) 0.0 0.0-0.1 [facility] CenterFluoroscopic procedure less than one hour hxdwnrqd2642-36-32 08:58:00* Test Item Value Reference Range Interpretation Comments Absolute Immature Granulocyte (auto (inocente t code = Absolute Immature Granulocyte (auto) 0.07 0-0.1 [facility] CenterInfluenza Virus Types A,B Antigen 2019-12-01 16:02:00* Test Item Value Reference Range Interpretation Comments Influenza Virus Types A,B Antigen (test code = 48054-8) NEGATIVE NEGATIVE [facility]aleodium Wzler8910-28-38 15:28:00* Test Item Value Reference Range Interpretation Comments Sodium Level (test code = 2951-2) 132 136-145 L [facility] CenterPotassium Ecqmc1301-84-01 15:28:00* Test Item Value Reference Range Interpretation Comments Potassium Level (test code = 2823-3) 4.2 3.5-5.1 [facility] CenterChloride Ueufw3612-36-27 15:28:00* Test Item Value Reference Range Interpretation Comments Chloride Level (test code = 2075-0) 96 98-107 L [facility] CenterCarbon Dioxide Chnnt6443-47-06 15:28:00* Test Item Value Reference Range Interpretation Comments Carbon Dioxide Level (test code = 2028-9) 27 22-29 [facility] CenterAnion Nyk4907-97-64 15:28:00* Test Item Value Reference Range Interpretation Comments Anion Gap (test code = 89005-1) 13.2 8-16 [facility] CenterBlood Urea Kemhvtnt5177-69-67 15:28:00* Test Item Value Reference Range Interpretation Comments Blood Urea Nitrogen (test code = 3094-0) 17 7-26 [facility] CenterCreatinine2020-03-15 15:28:00* Test Item Value Reference Range Interpretation Comments Creatinine (test code = 2160-0) 0.98 0.57-1.11 [facility] CenterBUN/Creatinine Srwmz9470-43-07 15:28:00* Test Item Value Reference Range Interpretation Comments BUN/Creatinine Ratio (test code = 3097-3) 17 6- [facility] CenterEstimat Glomerular Filtration Rate 2019-12-01 15:28:00* Test Item Value Reference Range Interpretation Comments Estimat Glomerular Filtration Rate (test code = 209635694) 54 >60 L Ranges were taken from the National Kidney Disease Education Program and the [facility] [employer] literature.Reference ranges:60 or greater: Wjvhys51-75 ( for 3 consecutive months): Chronic kidney disease 15 or less: Kidney failureTitus Regional Medical CenterGlucose Mmuyc8523-77-87 15:28:00* Test Item Value Reference Range Interpretation Comments Glucose Level (test code = MWI6664) 113 74-118 [facility] CenterCalcium Tkpnb5910-65-55 15:28:00* Test Item Value Reference Range Interpretation Comments Calcium Level (test code = 89970-5) 10.2 8.4-10.2 [facility] CenterMagnesium Sqbnu7502-54-12 15:28:00* Test Item Value Reference Range Interpretation Comments Magnesium Level (test code = 95497-8) 2.2 1.3-2.1 H [facility] CenterTotal Ufikltdcx6761-52-98 15:28:00* Test Item Value Reference Range Interpretation Comments Total Bilirubin (test code = 1975-2) 0.4 0.2-1.2 [facility] CenterAspartate Amino Transf (AST/SGOT) 2019-12-01 15:28:00* Test Item Value Reference Range Interpretation Comments Aspartate Amino Transf (AST/SGOT) (test code = Aspartate Amino Transf (AST/SGOT)) 24 5-34 [facility] CenterAlanine Aminotransferase (ALT/SGPT) 2019-12-01 15:28:00* Test Item Value Reference Range Interpretation Comments Alanine Aminotransferase (ALT/SGPT) (test code = 1742-6) 25 0-55 [facility] CenterTotal Gxzvztx6342-37-38 15:28:00* Test Item Value Reference Range Interpretation Comments Total Protein (test code = 2885-2) 8.5 6.5-8.1 H [facility] CenterAlbumin2020-03-15 15:28:00* Test Item Value Reference Range Interpretation Comments Albumin (test code = 1751-7) 4.7 3.5-5.0 [facility] CenterGlobulin2020-03-15 15:28:00* Test Item Value Reference Range Interpretation Comments Globulin (test code = 09306-1) 3.8 2.3-3.5 H [facility] CenterAlbumin/Globulin Ktfaz6549-73-95 15:28:00 * Test Item Value Reference Range Interpretation Comments Albumin/Globulin Ratio (test code = 1759-0) 1.2 0.8-2.0 [facility] CenterAlkaline Whnomysjuzz8318-50-96 15:28:00* Test Item Value Reference Range Interpretation Comments Alkaline Phosphatase (test code = 6768-6) 97 40-150 [facility] CenterCreatine Oydrjf9318-25-20 15:28:00* Test Item Value Reference Range Interpretation Comments Creatine Kinase (test code = 2157-6) 54 29-168 [facility] CenterCreatine Kinase UR9338-91-18 15:28:00* Test Item Value Reference Range Interpretation Comments Creatine Kinase MB (test code = 90248-6) 3.80 0-5.0 [facility] CenterTroponin D6389-93-12 15:28:00* Test Item Value Reference Range Interpretation Comments Troponin I (test code = ELI4692) 0.014 0-0.300 [facility] CenterLipase2020-03-15 15:28:00* Test Item Value Reference Range Interpretation Comments Lipase (test code = 3040-3) 35 8-78 [facility] CenterInfluenza virus A and B antigen identification by nlowgtlaurdfreunvo1721-71-46 15:22:00* Test Item Value Reference Range Interpretation Comments Influenza Virus Types A,B Antigen (test code = 14951-7) NEGATIVE NEGATIVE [facility] CenterInfluenza virus A and B antigen identification by ywcqlyfrzqunlfucno7790-93-73 15:22:00* Test Item Value Reference Range Interpretation Comments Influenza Virus Types A,B Antigen (test code = 94029-6) NEGATIVE NEGATIVE [facility] CenterInfluenza virus A and B antigen identification by yywubtvnvxhtsleqln7946-55-35 15:22:00* Test Item Value Reference Range Interpretation Comments Influenza Virus Types A,B Antigen (test code = 33080-9) NEGATIVE NEGATIVE [facility] CenterProthrombin Zqmv1890-57-24 15:12:00* Test Item Value Reference Range Interpretation Comments Prothrombin Time (test code = 5902-2) 12.3 11.9-14.5 [facility] CenterProthromb Time International Ratio 2019-12-01 15:12:00* Test Item Value Reference Range Interpretation Comments Prothromb Time International Ratio (test code = 6301-6) 0.87 Oral Anticoagulant Therapy INR Values:1. Low Intensity Therapy 1.5 - 2.02 . Moderate Intensity Therapy 2.0 - 3.03. High Intensity Therapy(1) 2.5 - 3. 54. High Intensity Therapy(2) 3.0 - 4.05. Panic Value INR > 5.0 [facility] CenterActivated Partial Thromboplast Time 2019-12-01 15:12:00* Test Item Value Reference Range Interpretation Comments Activated Partial Thromboplast Time (test code = 13577-1) 26.9 23.8-35.5 [facility] CenterUrine RQX5923-82-50 15:11:00* Test Item Value Reference Range Interpretation Comments Urine WBC (test code = 5821-4) 0-5 0-5 [facility] CenterUrine FMD2189-45-23 15:11:00* Test Item Value Reference Range Interpretation Comments Urine RBC (test code = 36784-9) 0-5 0-5 [facility] CenterUrine Yrroxquo7594-62-64 15:11:00* Test Item Value Reference Range Interpretation Comments Urine Bacteria (test code = 86538-9) RARE NONE [facility] CenterUrine Epithelial Qftle4459-03-78 15:11:00 * Test Item Value Reference Range Interpretation Comments Urine Epithelial Cells (test code = 56027-1) RARE NONE [facility] CenterUrine Egcld1718-12-14 15:06:00* Test Item Value Reference Range Interpretation Comments Urine Color (test code = 5778-6) YELLOW YELLOW [facility] CenterUrine Byzwqrg0053-15-35 15:06:00* Test Item Value Reference Range Interpretation Comments Urine Clarity (test code = 09981-6) CLEAR CLEAR [facility] CenterUrine Specific Swrpwsi6350-00-66 15:06:00 * Test Item Value Reference Range Interpretation Comments Urine Specific [place] (test code = 5811-5) 1.020 1.010-1.02 5 [facility] CenterUrine xN2456-43-41 15:06:00* Test Item Value Reference Range Interpretation Comments Urine pH (test code = 28945-9) 7.5 5-7 [facility] CenterUrine Leukocyte Frgktcft9536-10-63 15:06:00* Test Item Value Reference Range Interpretation Comments Urine Leukocyte Esterase (test code = 5799-2) NEGATIVE NEGATIVE [facility] CenterUrine Sedxuto3232-78-06 15:06:00* Test Item Value Reference Range Interpretation Comments Urine Nitrite (test code = 45888-8) NEGATIVE NEGATIVE [facility] CenterUrine Kgsfzgs1461-01-14 15:06:00* Test Item Value Reference Range Interpretation Comments Urine Protein (test code = 5804-0) NEGATIVE NEGATIVE [facility] CenterUrine Glucose (UA)2019-12-01 15:06:00* Test Item Value Reference Range Interpretation Comments Urine Glucose (UA) (test code = 2349-9) NEGATIVE NEGATIVE [facility] CenterUrine Amagnmy2572-13-53 15:06:00* Test Item Value Reference Range Interpretation Comments Urine Ketones (test code = 85454-3) NEGATIVE NEGATIVE [facility] CenterUrine Jccevradnmrg8487-93-56 15:06:00* Test Item Value Reference Range Interpretation Comments Urine Urobilinogen (test code = 50239-2) 0.2 0.2-1 [facility] CenterUrine Ucfvlrozb3302-29-14 15:06:00* Test Item Value Reference Range Interpretation Comments Urine Bilirubin (test code = 1978-6) NEGATIVE NEGATIVE [facility] CenterUrine Rtfsu6135-57-48 15:06:00* Test Item Value Reference Range Interpretation Comments Urine Blood (test code = 69931-9) NEGATIVE NEGATIVE [facility] CenterWhite Blood Jiwwa7046-90-95 15:00:00* Test Item Value Reference Range Interpretation Comments White Blood Count (test code = 6690-2) 10.68 4.8-10.8 [facility] CenterRed Blood Rfrfn8768-64-86 15:00:00* Test Item Value Reference Range Interpretation Comments Red Blood Count (test code = 789-8) 4.95 3.6-5.1 [facility] CenterHemoglobin2020-03-15 15:00:00* Test Item Value Reference Range Interpretation Comments Hemoglobin (test code = 85210-3) 15.0 12.0-16.0 [facility] CenterHematocrit2020-03-15 15:00:00* Test Item Value Reference Range Interpretation Comments Hematocrit (test code = 4544-3) 44.5 34.2-44.1 H [facility] CenterMean Corpuscular Ypecjc2632-40-47 15:00:00* Test Item Value Reference Range Interpretation Comments Mean Corpuscular Volume (test code = 787-2) 89.9 81-99 [facility] CenterMean Corpuscular Gcmsmhqziy0745-21-87 15:00:00* Test Item Value Reference Range Interpretation Comments Mean Corpuscular Hemoglobin (test code = 785-6) 30.3 28-32 [facility] CenterMean Corpuscular Hemoglobin Concent 2019-12-01 15:00:00* Test Item Value Reference Range Interpretation Comments Mean Corpuscular Hemoglobin Concent (test code = 786-4) 33.7 31-35 [facility] CenterRed Cell Distribution Tncgx1066-93-49 15:00:00* Test Item Value Reference Range Interpretation Comments Red Cell Distribution Width (test code = 85200-4) 13.0 11.7 -14.4 [facility] CenterPlatelet Jruug1611-85-42 15:00:00* Test Item Value Reference Range Interpretation Comments Platelet Count (test code = 777-3) 277 140-360 [facility] CenterNeutrophils (%) (Auto)2019-12-01 15:00:00 * Test Item Value Reference Range Interpretation Comments Neutrophils (%) (Auto) (test code = 17274-1) 86.8 38.7-80.0 H [facility] CenterLymphocytes (%) (Auto)2019-12-01 15:00:00 * Test Item Value Reference Range Interpretation Comments Lymphocytes (%) (Auto) (test code = 736-9) 7.3 18.0-39.1 L [facility] CenterMonocytes (%) (Auto)2019-12-01 15:00:00* Test Item Value Reference Range Interpretation Comments Monocytes (%) (Auto) (test code = 5905-5) 2.2 4.4-11.3 L [facility] CenterEosinophils (%) (Auto)2019-12-01 15:00:00 * Test Item Value Reference Range Interpretation Comments Eosinophils (%) (Auto) (test code = 713-8) 1.0 0.0-6.0 [facility] CenterBasophils (%) (Auto)2019-12-01 15:00:00* Test Item Value Reference Range Interpretation Comments Basophils (%) (Auto) (test code = 706-2) 0.4 0.0-1.0 [facility] CenterIM GRANULOCYTES %2019-12-01 15:00:00* Test Item Value Reference Range Interpretation Comments IM GRANULOCYTES % (test code = IM GRANULOCYTES %) 2.3 0.0- 1.0 H [facility] CenterNeutrophils # (Auto)2019-12-01 15:00:00* Test Item Value Reference Range Interpretation Comments Neutrophils # (Auto) (test code = 751-8) 9.3 2.1-6.9 H [facility] CenterLymphocytes # (Auto)2019-12-01 15:00:00* Test Item Value Reference Range Interpretation Comments Lymphocytes # (Auto) (test code = 79089-7) 0.8 1.0-3.2 L [facility] CenterMonocytes # (Auto)2019-12-01 15:00:00* Test Item Value Reference Range Interpretation Comments Monocytes # (Auto) (test code = 742-7) 0.2 0.2-0.8 [facility] CenterEosinophils # (Auto)2019-12-01 15:00:00* Test Item Value Reference Range Interpretation Comments Eosinophils # (Auto) (test code = 711-2) 0.1 0.0-0.4 [facility] CenterBasophils # (Auto)2019-12-01 15:00:00* Test Item Value Reference Range Interpretation Comments Basophils # (Auto) (test code = 704-7) 0.0 0.0-0.1 [facility] CenterAbsolute Immature Granulocyte (auto 2019-12-01 15:00:00* Test Item Value Reference Range Interpretation Comments Absolute Immature Granulocyte (auto (inocente t code = Absolute Immature Granulocyte (auto) 0.25 0-0.1 H [facility] CenterCT ABDOMEN/PELVIS [id number] 14:56:00 [facility] [address] [place] [address] Patient Name: FRANK PERRY MR #: [id number] : 1930 Age/Sex: 89/F Req #: [id number] Adm Physician: Ordered by: LILIANA GARCIA MD Report #: [id number] Location: ER Room/Bed: Procedure: [id number] CT/CT ABDOMEN/PELVIS WO Exam Date: Exam Time: [...] Si gned By: SALMA LOPEZ MD on 12/01/191504 Transcribed By: ROLO on 11/30 COPY TO: LILIANA GARCIA MD Urine color determination 2019-12-01 14:26:00* Test Item Value Reference Range Interpretation Comments Urine Color (test code = 5778-6) YELLOW YELLOW [facility] CenterUrine njhapba1997-09-41 14:26:00* Test Item Value Reference Range Interpretation Comments Urine Clarity (test code = 89650-9) CLEAR CLEAR [facility] gravity of Urine by Test strip 2019-12-01 14:26:00* Test Item Value Reference Range Interpretation Comments Urine Specific [place] (test code = 5811-5) 1.020 1.010-1.02 5 [facility] CenterUrine pH measurement by automated test blznf4092-86-24 14:26:00* Test Item Value Reference Range Interpretation Comments Urine pH (test code = 40106-9) 7.5 5-7 [facility] CenterUrine leukocyte esterase detection by zvxkxyss3266-90-84 14:26:00* Test Item Value Reference Range Interpretation Comments Urine Leukocyte Esterase (test code = 5799-2) NEGATIVE NEGATIVE [facility] CenterUrine nitrite ljphbtqon6762-66-38 14:26:00* Test Item Value Reference Range Interpretation Comments Urine Nitrite (test code = 08355-7) NEGATIVE NEGATIVE [facility] CenterUrine protein measurement by test strip (mass/volume)2019-12-01 14:26:00* Test Item Value Reference Range Interpretation Comments Urine Protein (test code = 5804-0) NEGATIVE NEGATIVE [facility] CenterUrine glucose ybtmdzfhw1310-61-18 14:26:00* Test Item Value Reference Range Interpretation Comments Urine Glucose (UA) (test code = 2349-9) NEGATIVE NEGATIVE [facility] CenterUrine ketones detection by automated test ccxdx6888-30-21 14:26:00* Test Item Value Reference Range Interpretation Comments Urine Ketones (test code = 53416-5) NEGATIVE NEGATIVE [facility] CenterUrine urobilinogen measurement by test strip (mass/volume)2019-12-01 14:26:00* Test Item Value Reference Range Interpretation Comments Urine Urobilinogen (test code = 59687-6) 0.2 0.2-1 [facility] CenterUrine total bilirubin measurement (mass/volume)2019-12-01 14:26:00* Test Item Value Reference Range Interpretation Comments Urine Bilirubin (test code = 1978-6) NEGATIVE NEGATIVE [facility] CenterUrine erythrocytes rqgkltskx1419-15-68 14:26:00* Test Item Value Reference Range Interpretation Comments Urine Blood (test code = 34005-3) NEGATIVE NEGATIVE [facility] CenterAutomated urine sediment leukocyte count by microscopy (number/high power field)2019-12-01 14:26:00* Test Item Value Reference Range Interpretation Comments Urine WBC (test code = 5821-4) 0-5 0-5 [facility] CenterErythrocytes detection in urine sediment by light oklnetoxgw9318-19-90 14:26:00* Test Item Value Reference Range Interpretation Comments Urine RBC (test code = 20564-0) 0-5 0-5 [facility] CenterBacteria detection in urine sediment by light rkmjkfkddb4309-90-07 14:26:00* Test Item Value Reference Range Interpretation Comments Urine Bacteria (test code = 51060-1) RARE NONE [facility] CenterEpithelial cells detection in urine sediment by light wjfjziiczg7145-61-04 14:26:00* Test Item Value Reference Range Interpretation Comments Urine Epithelial Cells (test code = 01780-0) RARE NONE [facility] CenterUrine color umxvboujpwxro0511-28-09 14:26:00* Test Item Value Reference Range Interpretation Comments Urine Color (test code = 5778-6) YELLOW YELLOW [facility] CenterUrine aqfrohh8718-85-44 14:26:00* Test Item Value Reference Range Interpretation Comments Urine Clarity (test code = 75603-0) CLEAR CLEAR [facility]alepecific gravity of Urine by Test strip 2019-12-01 14:26:00* Test Item Value Reference Range Interpretation Comments Urine Specific [place] (test code = 5811-5) 1.020 1.010-1.02 5 [facility] CenterUrine pH measurement by automated test uwmza6110-19-54 14:26:00* Test Item Value Reference Range Interpretation Comments Urine pH (test code = 30925-5) 7.5 5-7 [facility] CenterUrine leukocyte esterase detection by ggnwypwj5901-72-37 14:26:00* Test Item Value Reference Range Interpretation Comments Urine Leukocyte Esterase (test code = 5799-2) NEGATIVE NEGATIVE [facility] CenterUrine nitrite vsdcpzvwu8699-45-58 14:26:00* Test Item Value Reference Range Interpretation Comments Urine Nitrite (test code = 77182-2) NEGATIVE NEGATIVE [facility] CenterUrine protein measurement by test strip (mass/volume)2019-12-01 14:26:00* Test Item Value Reference Range Interpretation Comments Urine Protein (test code = 5804-0) NEGATIVE NEGATIVE [facility] CenterUrine glucose uscbdhqty8163-74-12 14:26:00* Test Item Value Reference Range Interpretation Comments Urine Glucose (UA) (test code = 2349-9) NEGATIVE NEGATIVE [facility] CenterUrine ketones detection by automated test emcrr7785-59-85 14:26:00* Test Item Value Reference Range Interpretation Comments Urine Ketones (test code = 32184-9) NEGATIVE NEGATIVE [facility] CenterUrine urobilinogen measurement by test strip (mass/volume)2019-12-01 14:26:00* Test Item Value Reference Range Interpretation Comments Urine Urobilinogen (test code = 49273-7) 0.2 0.2-1 [facility] CenterUrine total bilirubin measurement (mass/volume)2019-12-01 14:26:00* Test Item Value Reference Range Interpretation Comments Urine Bilirubin (test code = 1978-6) NEGATIVE NEGATIVE [facility] CenterUrine erythrocytes nrmczkmoa7392-43-42 14:26:00* Test Item Value Reference Range Interpretation Comments Urine Blood (test code = 44932-4) NEGATIVE NEGATIVE [facility] CenterAutomated urine sediment leukocyte count by microscopy (number/high power field)2019-12-01 14:26:00* Test Item Value Reference Range Interpretation Comments Urine WBC (test code = 5821-4) 0-5 0-5 [facility] CenterErythrocytes detection in urine sediment by light aoqliidfck7776-07-45 14:26:00* Test Item Value Reference Range Interpretation Comments Urine RBC (test code = 98175-5) 0-5 0-5 [facility] CenterBacteria detection in urine sediment by light rbjezbcnqz6641-04-47 14:26:00* Test Item Value Reference Range Interpretation Comments Urine Bacteria (test code = 18148-0) RARE NONE [facility] CenterEpithelial cells detection in urine sediment by light xveavjmawk5559-58-12 14:26:00* Test Item Value Reference Range Interpretation Comments Urine Epithelial Cells (test code = 14619-0) RARE NONE [facility] CenterFluoroscopic procedure less than one hour vjijfgnv4043-31-96 14:23:00* Test Item Value Reference Range Interpretation Comments Differential Total Cells Counted (test code = Differen tial Total Cells Counted) 100 [facility] 2019-12-01 14:23:00* Test Item Value Reference Range Interpretation Comments Neutrophils % (Manual) (test code = 01868-4) 92 40-74 [facility] blood lymphocytes/100 leukocytes 2019-12-01 14:23:00* Test Item Value Reference Range Interpretation Comments Lymphocytes % (Manual) (test code = 737-7) 7 19-48 [facility]100 leukocytes 2019-12-01 14:23:00* Test Item Value Reference Range Interpretation Comments Monocytes % (Manual) (test code = 744-3) 1 3.4-9.0 [facility] CenterBlood platelets count by estimate (number/volume)2019-12-01 14:23:00* Test Item Value Reference Range Interpretation Comments Platelet Estimate (test code = 32194-9) ADEQUATE [facility] CenterPlatelet szcaqiphqz1917-71-00 14:23:00* Test Item Value Reference Range Interpretation Comments Platelet Morphology Comment (test code = 02086-7) NORMAL [facility] CenterRBC avmtnkmobw0854-90-14 14:23:00* Test Item Value Reference Range Interpretation Comments Red Cell Morphology Comment (test code = 6742-1) NORMAL [facility] CenterProthrombin time (PT) in platelet poor plasma by coagulation dryoc6701-13-57 14:23:00* Test Item Value Reference Range Interpretation Comments Prothrombin Time (test code = 5902-2) 12.3 11.9-14.5 [facility] CenterINR in Platelet poor plasma by Coagulation fqqha0822-90-55 14:23:00* Test Item Value Reference Range Interpretation Comments Prothromb Time International Ratio (test code = 6301-6) 0.87 Oral Anticoagulant Therapy INR Values:1. Low Intensity Therapy 1.5 - 2.02 . Moderate Intensity Therapy 2.0 - 3.03. High Intensity Therapy(1) 2.5 - 3. 54. High Intensity Therapy(2) 3.0 - 4.05. Panic Value INR > 5.0 [facility] CenterActivated partial thromboplastin time (aPTT) in platelet poor plasma by coagulation rjkou5948-96-73 14:23:00* Test Item Value Reference Range Interpretation Comments Activated Partial Thromboplast Time (test code = 70504-8) 26.9 23.8-35.5 [facility]aleerum or plasma sodium measurement (moles/volume)2019-12-01 14:23:00* Test Item Value Reference Range Interpretation Comments Sodium Level (test code = 2951-2) 132 136-145 [facility]aleerum or plasma potassium measurement (moles/volume)2019-12-01 14:23:00* Test Item Value Reference Range Interpretation Comments Potassium Level (test code = 2823-3) 4.2 3.5-5.1 [facility]aleerum or plasma chloride measurement (moles/volume)2019-12-01 14:23:00* Test Item Value Reference Range Interpretation Comments Chloride Level (test code = 2075-0) 96 98-107 [facility]aleerum or plasma carbon dioxide, total measurement (moles/volume)2019-12-01 14:23:00* Test Item Value Reference Range Interpretation Comments Carbon Dioxide Level (test code = 2028-9) 27 22-29 [facility]aleerum or plasma anion hfz7354-41-41 14:23:00* Test Item Value Reference Range Interpretation Comments Anion Gap (test code = 57466-6) 13.2 8-16 [facility]aleerum or plasma urea nitrogen measurement (mass/volume)2019-12-01 14:23:00* Test Item Value Reference Range Interpretation Comments Blood Urea Nitrogen (test code = 3094-0) 17 7-26 [facility]aleerum or plasma creatinine measurement (mass/volume)2019-12-01 14:23:00* Test Item Value Reference Range Interpretation Comments Creatinine (test code = 2160-0) 0.98 0.57-1.11 [facility]aleerum or plasma urea nitrogen/creatinine mass fttpl9648-33-79 14:23:00* Test Item Value Reference Range Interpretation Comments BUN/Creatinine Ratio (test code = 3097-3) 17 6-25 [facility] CenterEstimated glomerular filtration rate (GFR) fpwthnljsuviw9343-00-10 14:23:00* Test Item Value Reference Range Interpretation Comments Estimat Glomerular Filtration Rate (test code = 545907428) 54 >60 Ranges were taken from the National Kidney Disease Education Program and the [facility] [employer] literature.Reference ranges:60 or greater: Wapdzp47-14 ( for 3 consecutive months): Chronic kidney disease 15 or less: Kidney failureTitus Regional Medical CenterGlucose spygezgaeck6205-65-77 14:23:00* Test Item Value Reference Range Interpretation Comments Glucose Level (test code = SUG7425) 113 74-118 [facility]aleerum or plasma calcium measurement (mass/volume)2019-12-01 14:23:00* Test Item Value Reference Range Interpretation Comments Calcium Level (test code = 84840-0) 10.2 8.4-10.2 [facility]aleerum or plasma magnesium measurement (mass/volume)2019-12-01 14:23:00* Test Item Value Reference Range Interpretation Comments Magnesium Level (test code = 46356-7) 2.2 1.3-2.1 [facility]aleerum or plasma total bilirubin measurement (mass/volume)2019-12-01 14:23:00* Test Item Value Reference Range Interpretation Comments Total Bilirubin (test code = 1975-2) 0.4 0.2-1.2 [facility] CenterFluoroscopic procedure less than one hour vmcofwkx9312-52-93 14:23:00* Test Item Value Reference Range Interpretation Comments Aspartate Amino Transf (AST/SGOT) (test code = Aspartate Amino Transf (AST/SGOT)) 24 5-34 [facility]aleerum or plasma alanine aminotransferase measurement (enzymatic activity/volume)2019-12-01 14:23:00* Test Item Value Reference Range Interpretation Comments Alanine Aminotransferase (ALT/SGPT) (test code = 1742-6) 25 0-55 [facility] Sunny[facility]aleerum or plasma protein measurement (mass/volume)2019-12-01 14:23:00* Test Item Value Reference Range Interpretation Comments Total Protein (test code = 2885-2) 8.5 6.5-8.1 [facility]aleerum or plasma albumin measurement (mass/volume)2019-12-01 14:23:00* Test Item Value Reference Range Interpretation Comments Albumin (test code = 1751-7) 4.7 3.5-5.0 [facility] CenterPlasma globulin measurement (mass/volume) 2019-12-01 14:23:00* Test Item Value Reference Range Interpretation Comments Globulin (test code = 27837-2) 3.8 2.3-3.5 [facility]aleerum or plasma albumin/globulin mass pymya4078-17-60 14:23:00* Test Item Value Reference Range Interpretation Comments Albumin/Globulin Ratio (test code = 1759-0) 1.2 0.8-2.0 [facility]aleerum or plasma alkaline phosphatase measurement (enzymatic activity/volume)2019-12-01 14:23:00* Test Item Value Reference Range Interpretation Comments Alkaline Phosphatase (test code = 6768-6) 97 40-150 [facility] CenterBNP Ikj-qYae5455-89-15 14:23:00* Test Item Value Reference Range Interpretation Comments B-Type Natriuretic Peptide (test code = 68866-0) 148.2 0-100 [facility]aleerum or plasma creatine kinase measurement (enzymatic activity/volume)2019-12-01 14:23:00* Test Item Value Reference Range Interpretation Comments Creatine Kinase (test code = 2157-6) 54 29-168 [facility] Sunnyvaleerum or plasma creatine kinase MB measurement (mass/volume)2019-12-01 14:23:00* Test Item Value Reference Range Interpretation Comments Creatine Kinase MB (test code = 23065-4) 3.80 0-5.0 [facility] CenterTroponin I measurement by highly sensitive enzyme vpuadxzqndj1085-66-67 14:23:00* Test Item Value Reference Range Interpretation Comments Troponin I (test code = 78604-9) 0.014 0-0.300 [facility]aleerum or plasma lipase measurement (enzymatic activity/volume)2019-12-01 14:23:00* Test Item Value Reference Range Interpretation Comments Lipase (test code = 3040-3) 35 8-78 [facility] CenterFluoroscopic procedure less than one hour yulikevw3280-83-19 14:23:00* Test Item Value Reference Range Interpretation Comments Differential Total Cells Counted (test code = Kamryn tial Total Cells Counted) 100 [facility] CenterManual blood neutrophils/100 leukocytes 2019-12-01 14:23:00* Test Item Value Reference Range Interpretation Comments Neutrophils % (Manual) (test code = 35499-4) 92 40-74 [facility] CenterManual blood lymphocytes/100 leukocytes 2019-12-01 14:23:00* Test Item Value Reference Range Interpretation Comments Lymphocytes % (Manual) (test code = 737-7) 7 19-48 [facility] CenterManual blood monocytes/100 leukocytes 2019-12-01 14:23:00* Test Item Value Reference Range Interpretation Comments Monocytes % (Manual) (test code = 744-3) 1 3.4-9.0 [facility] CenterBlood platelets count by estimate (number/volume)2019-12-01 14:23:00* Test Item Value Reference Range Interpretation Comments Platelet Estimate (test code = 71970-1) ADEQUATE [facility] CenterPlatelet ljakxispci1095-24-49 14:23:00* Test Item Value Reference Range Interpretation Comments Platelet Morphology Comment (test code = 62784-7) NORMAL [facility] CenterRBC pbgvceostc8053-66-36 14:23:00* Test Item Value Reference Range Interpretation Comments Red Cell Morphology Comment (test code = 6742-1) NORMAL [facility] CenterProthrombin time (PT) in platelet poor plasma by coagulation lduoy6108-53-57 14:23:00* Test Item Value Reference Range Interpretation Comments Prothrombin Time (test code = 5902-2) 12.3 11.9-14.5 [facility] CenterINR in Platelet poor plasma by Coagulation qrfpk7827-19-20 14:23:00* Test Item Value Reference Range Interpretation Comments Prothromb Time International Ratio (test code = 6301-6) 0.87 Oral Anticoagulant Therapy INR Values:1. Low Intensity Therapy 1.5 - 2.02 . Moderate Intensity Therapy 2.0 - 3.03. High Intensity Therapy(1) 2.5 - 3. 54. High Intensity Therapy(2) 3.0 - 4.05. Panic Value INR > 5.0 [facility] CenterActivated partial thromboplastin time (aPTT) in platelet poor plasma by coagulation bnhxw4817-57-99 14:23:00* Test Item Value Reference Range Interpretation Comments Activated Partial Thromboplast Time (test code = 01449-1) 26.9 23.8-35.5 [facility]aleerum or plasma sodium measurement (moles/volume)2019-12-01 14:23:00* Test Item Value Reference Range Interpretation Comments Sodium Level (test code = 2951-2) 132 136-145 [facility]aleerum or plasma potassium measurement (moles/volume)2019-12-01 14:23:00* Test Item Value Reference Range Interpretation Comments Potassium Level (test code = 2823-3) 4.2 3.5-5.1 [facility]aleerum or plasma chloride measurement (moles/volume)2019-12-01 14:23:00* Test Item Value Reference Range Interpretation Comments Chloride Level (test code = 2075-0) 96 98-107 [facility]aleerum or plasma carbon dioxide, total measurement (moles/volume)2019-12-01 14:23:00* Test Item Value Reference Range Interpretation Comments Carbon Dioxide Level (test code = 2028-9) 27 22-29 [facility]aleerum or plasma anion tnx9281-25-20 14:23:00* Test Item Value Reference Range Interpretation Comments Anion Gap (test code = 20250-9) 13.2 8-16 [facility]aleerum or plasma urea nitrogen measurement (mass/volume)2019-12-01 14:23:00* Test Item Value Reference Range Interpretation Comments Blood Urea Nitrogen (test code = 3094-0) 17 7-26 [facility]aleerum or plasma creatinine measurement (mass/volume)2019-12-01 14:23:00* Test Item Value Reference Range Interpretation Comments Creatinine (test code = 2160-0) 0.98 0.57-1.11 [facility]aleerum or plasma urea nitrogen/creatinine mass uzocg7673-98-69 14:23:00* Test Item Value Reference Range Interpretation Comments BUN/Creatinine Ratio (test code = 3097-3) 17 6-25 [facility] CenterEstimated glomerular filtration rate (GFR) pboncuqdkdyey3302-44-67 14:23:00* Test Item Value Reference Range Interpretation Comments Estimat Glomerular Filtration Rate (test code = 710066276) 54 >60 Ranges were taken from the National Kidney Disease Education Program and the [facility] [employer] literature.Reference ranges:60 or greater: Wqwqdg68-68 ( for 3 consecutive months): Chronic kidney disease 15 or less: Kidney failureTitus Regional Medical CenterGlucose urxprffuyms5137-22-43 14:23:00* Test Item Value Reference Range Interpretation Comments Glucose Level (test code = HVM9653) 113 74-118 [facility]aleerum or plasma calcium measurement (mass/volume)2019-12-01 14:23:00* Test Item Value Reference Range Interpretation Comments Calcium Level (test code = 10047-5) 10.2 8.4-10.2 [facility]aleerum or plasma magnesium measurement (mass/volume)2019-12-01 14:23:00* Test Item Value Reference Range Interpretation Comments Magnesium Level (test code = 68635-3) 2.2 1.3-2.1 [facility]aleerum or plasma total bilirubin measurement (mass/volume)2019-12-01 14:23:00* Test Item Value Reference Range Interpretation Comments Total Bilirubin (test code = 1975-2) 0.4 0.2-1.2 [facility] CenterFluoroscopic procedure less than one hour pjkokrsy0656-59-40 14:23:00* Test Item Value Reference Range Interpretation Comments Aspartate Amino Transf (AST/SGOT) (test code = Aspartate Amino Transf (AST/SGOT)) 24 5-34 [facility]aleerum or plasma alanine aminotransferase measurement (enzymatic activity/volume)2019-12-01 14:23:00* Test Item Value Reference Range Interpretation Comments Alanine Aminotransferase (ALT/SGPT) (test code = 1742-6) 25 0-55 [facility]aleerum or plasma protein measurement (mass/volume)2019-12-01 14:23:00* Test Item Value Reference Range Interpretation Comments Total Protein (test code = 2885-2) 8.5 6.5-8.1 [facility] plasma albumin measurement (mass/volume)2019-12-01 14:23:00* Test Item Value Reference Range Interpretation Comments Albumin (test code = 1751-7) 4.7 3.5-5.0 [facility] CenterPlasma globulin measurement (mass/volume) 2019-12-01 14:23:00* Test Item Value Reference Range Interpretation Comments Globulin (test code = 58128-4) 3.8 2.3-3.5 [facility]aleerum or plasma albumin/globulin mass bergm1341-54-87 14:23:00* Test Item Value Reference Range Interpretation Comments Albumin/Globulin Ratio (test code = 1759-0) 1.2 0.8-2.0 [facility]um or plasma alkaline phosphatase measurement (enzymatic activity/volume)2019-12-01 14:23:00* Test Item Value Reference Range Interpretation Comments Alkaline Phosphatase (test code = 6768-6) 97 40-150 [facility] CenterBNP Ekz-sIgc5653-39-15 14:23:00* Test Item Value Reference Range Interpretation Comments B-Type Natriuretic Peptide (test code = 96315-1) 148.2 0-100 [facility]aleerum or plasma creatine kinase measurement (enzymatic activity/volume)2019-12-01 14:23:00* Test Item Value Reference Range Interpretation Comments Creatine Kinase (test code = 2157-6) 54 29-168 [facility]aleerum or plasma creatine kinase MB measurement (mass/volume)2019-12-01 14:23:00* Test Item Value Reference Range Interpretation Comments Creatine Kinase MB (test code = 96760-9) 3.80 0-5.0 [facility] CenterTroponin I measurement by highly sensitive enzyme rxlrnrfejft6455-92-67 14:23:00* Test Item Value Reference Range Interpretation Comments Troponin I (test code = 09204-6) 0.014 0-0.300 [facility]aleerum or plasma lipase measurement (enzymatic activity/volume)2019-12-01 14:23:00* Test Item Value Reference Range Interpretation Comments Lipase (test code = 3040-3) 35 8-78 [facility] CenterBlood platelets count by estimate (number/volume)2019-12-01 14:23:00* Test Item Value Reference Range Interpretation Comments Platelet Estimate (test code = 05714-9) ADEQUATE [facility] CenterPlatelet hhjihbfwbg1272-26-94 14:23:00* Test Item Value Reference Range Interpretation Comments Platelet Morphology Comment (test code = 26834-5) NORMAL [facility] CenterRBC jwoqbponft5959-31-29 14:23:00* Test Item Value Reference Range Interpretation Comments Red Cell Morphology Comment (test code = 6742-1) NORMAL [facility] CenterBNP Rnl-tEfb1923-70-15 14:23:00* Test Item Value Reference Range Interpretation Comments B-Type Natriuretic Peptide (test code = 00420-3) 148.2 0-100 [facility]aleerum or plasma lipase measurement (enzymatic activity/volume)2019-12-01 14:23:00* Test Item Value Reference Range Interpretation Comments Lipase (test code = 3040-3) 35 8-78 [facility] CenterCHEST 2 WYDRS7275-88-37 12:06:00 [facility] [address] [place] [address] Patient Name: FRANK PERRY MR #: [id number] : 1930 Age/Sex: 89/F Req #: [id number] Adm Physician: Ordered by: LILIANA GARCIA MD Report #: [id number] Location: ER Room/Bed: Procedure: [id number] DX/CH EST 2 VIEWS Exam Date: 11/30/19 [...] Comments B-Type Natriuretic Peptide (test code = 33992-6) 382.2 0-100 H [facility] CenterB-Type Natriuretic Rezafgx0227-08-87 11:04:00* Test Item Value Reference Range Interpretation Comments B-Type Natriuretic Peptide (test code = 81964-9) 382.2 0-100 H [facility] CenterCreatine Kinase OF6281-62-91 11:03:00* Test Item Value Reference Range Interpretation Comments Creatine Kinase MB (test code = 38934-7) 4.30 0-5.0 [facility] CenterTroponin I3792-88-51 11:03:00* Test Item Value Reference Range Interpretation Comments Troponin I (test code = QKT7360) 0.010 0-0.300 [facility] CenterProthrombin Sxwe4299-51-94 10:57:00* Test Item Value Reference Range Interpretation Comments Prothrombin Time (test code = 5902-2) 12.4 11.9-14.5 [facility] CenterProthromb Time International Ratio 2019-11-30 10:57:00* Test Item Value Reference Range Interpretation Comments Prothromb Time International Ratio (test code = 6301-6) 0.88 Oral Anticoagulant Therapy INR Values:1. Low Intensity Therapy 1.5 - 2.02 . Moderate Intensity Therapy 2.0 - 3.03. High Intensity Therapy(1) 2.5 - 3. 54. High Intensity Therapy(2) 3.0 - 4.05. Panic Value INR > 5.0 [facility] CenterActivated Partial Thromboplast Time 2019-11-30 10:57:00* Test Item Value Reference Range Interpretation Comments Activated Partial Thromboplast Time (test code = 45168-8) 26.4 23.8-35.5 [facility]aleodium Nmusv2405-06-09 10:57:00* Test Item Value Reference Range Interpretation Comments Sodium Level (test code = 2951-2) 131 136-145 L [facility] CenterPotassium Tujex7572-51-58 10:57:00* Test Item Value Reference Range Interpretation Comments Potassium Level (test code = 2823-3) 4.3 3.5-5.1 [facility] CenterChloride Ttedl2575-37-16 10:57:00* Test Item Value Reference Range Interpretation Comments Chloride Level (test code = 2075-0) 97 98-107 L [facility] CenterCarbon Dioxide Zfhql5706-85-98 10:57:00* Test Item Value Reference Range Interpretation Comments Carbon Dioxide Level (test code = 2028-9) 28 22-29 [facility] CenterAnion Sfb8919-94-14 10:57:00* Test Item Value Reference Range Interpretation Comments Anion Gap (test code = 30469-4) 10.3 8-16 [facility] CenterBlood Urea Hicltznd5428-26-72 10:57:00* Test Item Value Reference Range Interpretation Comments Blood Urea Nitrogen (test code = 3094-0) 18 7-26 [facility] CenterCreatinine2020-03-14 10:57:00* Test Item Value Reference Range Interpretation Comments Creatinine (test code = 2160-0) 1.00 0.57-1.11 [facility] CenterBUN/Creatinine Mmxeu0664-59-55 10:57:00* Test Item Value Reference Range Interpretation Comments BUN/Creatinine Ratio (test code = 3097-3) 18 6-25 [facility] CenterEstimat Glomerular Filtration Rate 2019-11-30 10:57:00* Test Item Value Reference Range Interpretation Comments Estimat Glomerular Filtration Rate (test code = 813210926) 52 >60 L Ranges were taken from the National Kidney Disease Education Program and the [facility] literature.Reference ranges:60 or greater: Mwbdai56-59 ( for 3 consecutive months): Chronic kidney disease 15 or less: Kidney failureTitus Regional Medical CenterGlucose Fbumf6200-11-98 10:57:00* Test Item Value Reference Range Interpretation Comments Glucose Level (test code = JOF7364) 94 74-118 [facility] CenterCalcium Mcgwq7441-54-67 10:57:00* Test Item Value Reference Range Interpretation Comments Calcium Level (test code = 13278-8) 10.1 8.4-10.2 [facility] CenterMagnesium Ctyhg2389-72-51 10:57:00* Test Item Value Reference Range Interpretation Comments Magnesium Level (test code = 78701-0) 2.1 1.3-2.1 [facility] CenterTotal Xjttcphux6625-52-55 10:57:00* Test Item Value Reference Range Interpretation Comments Total Bilirubin (test code = 1975-2) 0.4 0.2-1.2 [facility] CenterAspartate Amino Transf (AST/SGOT) 2019-11-30 10:57:00* Test Item Value Reference Range Interpretation Comments Aspartate Amino Transf (AST/SGOT) (test code = Aspartate Amino Transf (AST/SGOT)) 22 5-34 [facility] CenterAlanine Aminotransferase (ALT/SGPT) 2019-11-30 10:57:00* Test Item Value Reference Range Interpretation Comments Alanine Aminotransferase (ALT/SGPT) (test code = 1742-6) 18 0-55 [facility] CenterTotal Mqibwfo9459-38-78 10:57:00* Test Item Value Reference Range Interpretation Comments Total Protein (test code = 2885-2) 7.4 6.5-8.1 [facility] CenterAlbumin2020-03-14 10:57:00* Test Item Value Reference Range Interpretation Comments Albumin (test code = 1751-7) 4.2 3.5-5.0 [facility] CenterGlobulin2020-03-14 10:57:00* Test Item Value Reference Range Interpretation Comments Globulin (test code = 39350-1) 3.2 2.3-3.5 [facility] CenterAlbumin/Globulin Botfr4582-13-20 10:57:00 * Test Item Value Reference Range Interpretation Comments Albumin/Globulin Ratio (test code = 1759-0) 1.3 0.8-2.0 [facility] CenterAlkaline Fbirisqdjpi9210-26-38 10:57:00* Test Item Value Reference Range Interpretation Comments Alkaline Phosphatase (test code = 6768-6) 79 40-150 [facility] CenterCreatine Pddcfx3974-03-31 10:57:00* Test Item Value Reference Range Interpretation Comments Creatine Kinase (test code = 2157-6) 77 29-168 [facility] CenterUrine WJH1054-27-03 10:56:00* Test Item Value Reference Range Interpretation Comments Urine WBC (test code = 5821-4) 11-20 0-5 H [facility] CenterUrine KZV0752-07-01 10:56:00* Test Item Value Reference Range Interpretation Comments Urine RBC (test code = 09665-7) 6-10 0-5 H [facility] CenterUrine Siizzsjx0065-34-36 10:56:00* Test Item Value Reference Range Interpretation Comments Urine Bacteria (test code = 65663-7) RARE NONE [facility] CenterUrine Epithelial Kimtl1270-65-07 10:56:00 * Test Item Value Reference Range Interpretation Comments Urine Epithelial Cells (test code = 71415-8) FEW NONE [facility] CenterCT BRAIN FZ3952-47-17 10:53:00 [facility] [address] [address] Patient Name: FRANK PERRY MR #: [id number] : 1930 Age/Sex: 89/F Req #: [id number] Adm Physician: Ordered by: LILIANA GARCIA MD Report #: [id number] Location: Room/Bed: Procedure: [id number] CT/CT BRAIN WO Exam Date: 11/30/19 Exam [...] AM D ictated By: JAILYN STEPHENS MD 1056 Transcribed By: ROLO on 11/30/19 1056 COPY TO: LILIANA GARCIA MD Urine Opxhg9109-73-43 10:45:00* Test Item Value Reference Range Interpretation Comments Urine Color (test code = 5778-6) YELLOW YELLOW [facility] CenterUrine Ptfzklx8557-56-48 10:45:00* Test Item Value Reference Range Interpretation Comments Urine Clarity (test code = 95736-5) CLEAR CLEAR [facility] CenterUrine Specific Mmspgsw9283-29-82 10:45:00 * Test Item Value Reference Range Interpretation Comments Urine Specific [place] (test code = 5811-5) 1.025 1.010-1.02 5 [facility] CenterUrine vW0787-28-58 10:45:00* Test Item Value Reference Range Interpretation Comments Urine pH (test code = 75814-0) 7 5-7 [facility] CenterUrine Leukocyte Qbwmtplb6812-18-43 10:45:00* Test Item Value Reference Range Interpretation Comments Urine Leukocyte Esterase (test code = 5799-2) TRACE NEGATIVE H [facility] CenterUrine Kihanaf2555-25-99 10:45:00* Test Item Value Reference Range Interpretation Comments Urine Nitrite (test code = 81237-8) NEGATIVE NEGATIVE [facility] CenterUrine Phlzdrw5332-90-12 10:45:00* Test Item Value Reference Range Interpretation Comments Urine Protein (test code = 5804-0) NEGATIVE NEGATIVE [facility] CenterUrine Glucose (UA)2019-11-30 10:45:00* Test Item Value Reference Range Interpretation Comments Urine Glucose (UA) (test code = 2349-9) NEGATIVE NEGATIVE [facility] CenterUrine Dfgvfug4524-24-07 10:45:00* Test Item Value Reference Range Interpretation Comments Urine Ketones (test code = 46225-9) NEGATIVE NEGATIVE [facility] CenterUrine Sppesqztrkqu9488-40-71 10:45:00* Test Item Value Reference Range Interpretation Comments Urine Urobilinogen (test code = 10578-5) 0.2 0.2-1 [facility] CenterUrine Rgpuowsgy5455-87-59 10:45:00* Test Item Value Reference Range Interpretation Comments Urine Bilirubin (test code = 1978-6) NEGATIVE NEGATIVE [facility] CenterUrine Slbzi2763-26-00 10:45:00* Test Item Value Reference Range Interpretation Comments Urine Blood (test code = 19803-2) TRACE NEGATIVE H [facility] CenterWhite Blood Ifrky4142-42-79 10:41:00* Test Item Value Reference Range Interpretation Comments White Blood Count (test code = 6690-2) 13.01 4.8-10.8 H [facility] CenterRed Blood Nnfcc0159-02-35 10:41:00* Test Item Value Reference Range Interpretation Comments Red Blood Count (test code = 789-8) 4.45 3.6-5.1 [facility] CenterHemoglobin2020-03-14 10:41:00* Test Item Value Reference Range Interpretation Comments Hemoglobin (test code = 45843-2) 13.4 12.0-16.0 [facility] CenterHematocrit2020-03-14 10:41:00* Test Item Value Reference Range Interpretation Comments Hematocrit (test code = 4544-3) 39.9 34.2-44.1 [facility] CenterMean Corpuscular Yovqte7330-94-66 10:41:00* Test Item Value Reference Range Interpretation Comments Mean Corpuscular Volume (test code = 787-2) 89.7 81-99 [facility] CenterMean Corpuscular Fhvnkcknna0586-34-44 10:41:00* Test Item Value Reference Range Interpretation Comments Mean Corpuscular Hemoglobin (test code = 785-6) 30.1 28-32 [facility] CenterMean Corpuscular Hemoglobin Concent 2019-11-30 10:41:00* Test Item Value Reference Range Interpretation Comments Mean Corpuscular Hemoglobin Concent (test code = 786-4) 33.6 31-35 [facility] CenterRed Cell Distribution Ftugy1169-75-64 10:41:00* Test Item Value Reference Range Interpretation Comments Red Cell Distribution Width (test code = 14780-9) 13.1 11.7 -14.4 [facility] CenterPlatelet Zedyk7471-26-22 10:41:00* Test Item Value Reference Range Interpretation Comments Platelet Count (test code = 777-3) 257 140-360 [facility] CenterNeutrophils (%) (Auto)2019-11-30 10:41:00 * Test Item Value Reference Range Interpretation Comments Neutrophils (%) (Auto) (test code = 79328-1) 87.3 38.7-80.0 H [facility] CenterLymphocytes (%) (Auto)2019-11-30 10:41:00 * Test Item Value Reference Range Interpretation Comments Lymphocytes (%) (Auto) (test code = 736-9) 6.7 18.0-39.1 L [facility] CenterMonocytes (%) (Auto)2019-11-30 10:41:00* Test Item Value Reference Range Interpretation Comments Monocytes (%) (Auto) (test code = 5905-5) 5.1 4.4-11.3 [facility] CenterEosinophils (%) (Auto)2019-11-30 10:41:00 * Test Item Value Reference Range Interpretation Comments Eosinophils (%) (Auto) (test code = 713-8) 0.0 0.0-6.0 [facility] CenterBasophils (%) (Auto)2019-11-30 10:41:00* Test Item Value Reference Range Interpretation Comments Basophils (%) (Auto) (test code = 706-2) 0.1 0.0-1.0 [facility] CenterIM GRANULOCYTES %2019-11-30 10:41:00* Test Item Value Reference Range Interpretation Comments IM GRANULOCYTES % (test code = IM GRANULOCYTES %) 0.8 0.0- 1.0 [facility] CenterNeutrophils # (Auto)2019-11-30 10:41:00* Test Item Value Reference Range Interpretation Comments Neutrophils # (Auto) (test code = 751-8) 11.4 2.1-6.9 H [facility] CenterLymphocytes # (Auto)2019-11-30 10:41:00* Test Item Value Reference Range Interpretation Comments Lymphocytes # (Auto) (test code = 73294-2) 0.9 1.0-3.2 L [facility] CenterMonocytes # (Auto)2019-11-30 10:41:00* Test Item Value Reference Range Interpretation Comments Monocytes # (Auto) (test code = 742-7) 0.7 0.2-0.8 [facility] CenterEosinophils # (Auto)2019-11-30 10:41:00* Test Item Value Reference Range Interpretation Comments Eosinophils # (Auto) (test code = 711-2) 0.0 0.0-0.4 [facility] CenterBasophils # (Auto)2019-11-30 10:41:00* Test Item Value Reference Range Interpretation Comments Basophils # (Auto) (test code = 704-7) 0.0 0.0-0.1 [facility] CenterAbsolute Immature Granulocyte (auto 2019-11-30 10:41:00* Test Item Value Reference Range Interpretation Comments Absolute Immature Granulocyte (auto (inocente t code = Absolute Immature Granulocyte (auto) 0.11 0-0.1 H [facility] CenterUrine Rnkjpun8858-78-04 09:40:00* Test Item Value Reference Range Interpretation Comments Urine Culture (test code = 630-4) No Result Data Provided [facility] CenterUrine Tabfpws9959-68-16 09:40:00* Test Item Value Reference Range Interpretation Comments Urine Culture (test code = 630-4) No Result Data Provided [facility] CenterCreatine Kinase QX0402-70-96 15:26:00* Test Item Value Reference Range Interpretation Comments Creatine Kinase MB (test code = 88303-2) 3.70 0-5.0 [facility] CenterTroponin P0289-90-92 15:26:00* Test Item Value Reference Range Interpretation Comments Troponin I (test code = FWX8470) 0.017 0-0.300 [facility]aleodium Uaxgi4800-26-53 14:52:00* Test Item Value Reference Range Interpretation Comments Sodium Level (test code = 2951-2) 135 136-145 L [facility] CenterPotassium Lopza2909-61-82 14:52:00* Test Item Value Reference Range Interpretation Comments Potassium Level (test code = 2823-3) 4.1 3.5-5.1 [facility] CenterChloride Pffvf8569-19-05 14:52:00* Test Item Value Reference Range Interpretation Comments Chloride Level (test code = 2075-0) 97 98-107 L [facility] CenterCarbon Dioxide Scfkq6575-02-74 14:52:00* Test Item Value Reference Range Interpretation Comments Carbon Dioxide Level (test code = 2028-9) 27 22-29 [facility] CenterAnion Dul2025-10-16 14:52:00* Test Item Value Reference Range Interpretation Comments Anion Gap (test code = 29555-4) 15.1 8-16 [facility] CenterBlood Urea Itddtsiq0398-99-74 14:52:00* Test Item Value Reference Range Interpretation Comments Blood Urea Nitrogen (test code = 3094-0) 16 7-26 [facility] CenterCreatinine2020-01-31 14:52:00* Test Item Value Reference Range Interpretation Comments Creatinine (test code = 2160-0) 0.89 0.57-1.11 [facility] CenterBUN/Creatinine Ypijr7415-81-66 14:52:00* Test Item Value Reference Range Interpretation Comments BUN/Creatinine Ratio (test code = 3097-3) 18 6-25 [facility] CenterEstimat Glomerular Filtration Rate 2019-10-18 14:52:00* Test Item Value Reference Range Interpretation Comments Estimat Glomerular Filtration Rate (test code = 006989559) 60 >60 Ranges were taken from the National Kidney Disease Education Program and the [facility] literature.Reference ranges:60 or greater: Sejkqg11-83 ( for 3 consecutive months): Chronic kidney disease 15 or less: Kidney failureT[facility] Regional Medical CenterGlucose Jgnus9427-48-29 14:52:00* Test Item Value Reference Range Interpretation Comments Glucose Level (test code = XKW2918) 101 74-118 [facility] CenterCalcium Mgtws7974-06-93 14:52:00* Test Item Value Reference Range Interpretation Comments Calcium Level (test code = 40314-6) 10.1 8.4-10.2 [facility] CenterMagnesium Qukjx9325-50-96 14:52:00* Test Item Value Reference Range Interpretation Comments Magnesium Level (test code = 39571-7) 2.0 1.3-2.1 [facility] CenterTotal Essbhjccy5771-30-17 14:52:00* Test Item Value Reference Range Interpretation Comments Total Bilirubin (test code = 1975-2) 0.4 0.2-1.2 [facility] CenterAspartate Amino Transf (AST/SGOT) 2019-10-18 14:52:00* Test Item Value Reference Range Interpretation Comments Aspartate Amino Transf (AST/SGOT) (test code = Aspartate Amino Transf (AST/SGOT)) 19 5-34 [facility] CenterAlanine Aminotransferase (ALT/SGPT) 2019-10-18 14:52:00* Test Item Value Reference Range Interpretation Comments Alanine Aminotransferase (ALT/SGPT) (test code = 1742-6) 16 0-55 [facility] CenterTotal Ufxtglj0407-28-10 14:52:00* Test Item Value Reference Range Interpretation Comments Total Protein (test code = 2885-2) 7.3 6.5-8.1 [facility] CenterAlbumin2020-01-31 14:52:00* Test Item Value Reference Range Interpretation Comments Albumin (test code = 1751-7) 3.9 3.5-5.0 [facility] CenterGlobulin2020-01-31 14:52:00* Test Item Value Reference Range Interpretation Comments Globulin (test code = 28980-8) 3.4 2.3-3.5 [facility] CenterAlbumin/Globulin Aqspf1566-33-68 14:52:00 * Test Item Value Reference Range Interpretation Comments Albumin/Globulin Ratio (test code = 1759-0) 1.1 0.8-2.0 [facility] CenterAlkaline Fcdggrfbdjy3094-62-66 14:52:00* Test Item Value Reference Range Interpretation Comments Alkaline Phosphatase (test code = 6768-6) 88 40-150 [facility] CenterCreatine Irvcqq7147-05-71 14:52:00* Test Item Value Reference Range Interpretation Comments Creatine Kinase (test code = 2157-6) 57 29-168 [facility] CenterProthrombin Lqxj0569-69-30 14:47:00* Test Item Value Reference Range Interpretation Comments Prothrombin Time (test code = 5902-2) 12.3 11.9-14.5 [facility] CenterProthromb Time International Ratio 2019-10-18 14:47:00* Test Item Value Reference Range Interpretation Comments Prothromb Time International Ratio (test code = 6301-6) 0.90 Oral Anticoagulant Therapy INR Values:1. Low Intensity Therapy 1.5 - 2.02 . Moderate Intensity Therapy 2.0 - 3.03. High Intensity Therapy(1) 2.5 - 3. 54. High Intensity Therapy(2) 3.0 - 4.05. Panic Value INR > 5.0 [facility] CenterActivated Partial Thromboplast Time 2019-10-18 14:47:00* Test Item Value Reference Range Interpretation Comments Activated Partial Thromboplast Time (test code = 30655-7) 31.0 23.8-35.5 [facility] CenterWhite Blood Hkmnn4778-21-85 14:33:00* Test Item Value Reference Range Interpretation Comments White Blood Count (test code = 6690-2) 8.10 4.8-10.8 [facility] CenterRed Blood Atajf4852-35-04 14:33:00* Test Item Value Reference Range Interpretation Comments Red Blood Count (test code = 789-8) 4.60 3.6-5.1 [facility] CenterHemoglobin2020-01-31 14:33:00* Test Item Value Reference Range Interpretation Comments Hemoglobin (test code = 17276-2) 13.8 12.0-16.0 [facility] CenterHematocrit2020-01-31 14:33:00* Test Item Value Reference Range Interpretation Comments Hematocrit (test code = 4544-3) 40.9 34.2-44.1 [facility] CenterMean Corpuscular Fffgaz6293-06-24 14:33:00* Test Item Value Reference Range Interpretation Comments Mean Corpuscular Volume (test code = 787-2) 88.9 81-99 [facility] CenterMean Corpuscular Ofmjwiuyug9516-11-74 14:33:00* Test Item Value Reference Range Interpretation Comments Mean Corpuscular Hemoglobin (test code = 785-6) 30.0 28-32 [facility] CenterMean Corpuscular Hemoglobin Concent 2019-10-18 14:33:00* Test Item Value Reference Range Interpretation Comments Mean Corpuscular Hemoglobin Concent (test code = 786-4) 33.7 31-35 [facility] CenterRed Cell Distribution Mgdmh9036-40-84 14:33:00* Test Item Value Reference Range Interpretation Comments Red Cell Distribution Width (test code = 54845-4) 12.9 11.7 -14.4 [facility] CenterPlatelet Jdbsp5158-87-81 14:33:00* Test Item Value Reference Range Interpretation Comments Platelet Count (test code = 777-3) 310 140-360 [facility] CenterNeutrophils (%) (Auto)2019-10-18 14:33:00 * Test Item Value Reference Range Interpretation Comments Neutrophils (%) (Auto) (test code = 38143-3) 66.4 38.7-80.0 [facility] CenterLymphocytes (%) (Auto)2019-10-18 14:33:00 * Test Item Value Reference Range Interpretation Comments Lymphocytes (%) (Auto) (test code = 736-9) 16.8 18.0-39.1 L [facility] CenterMonocytes (%) (Auto)2019-10-18 14:33:00* Test Item Value Reference Range Interpretation Comments Monocytes (%) (Auto) (test code = 5905-5) 7.2 4.4-11.3 [facility] CenterEosinophils (%) (Auto)2019-10-18 14:33:00 * Test Item Value Reference Range Interpretation Comments Eosinophils (%) (Auto) (test code = 713-8) 3.0 0.0-6.0 [facility] CenterBasophils (%) (Auto)2019-10-18 14:33:00* Test Item Value Reference Range Interpretation Comments Basophils (%) (Auto) (test code = 706-2) 1.2 0.0-1.0 H [facility] CenterIM GRANULOCYTES %2019-10-18 14:33:00* Test Item Value Reference Range Interpretation Comments IM GRANULOCYTES % (test code = IM GRANULOCYTES %) 5.4 0.0- 1.0 [facility] CenterNeutrophils # (Auto)2019-10-18 14:33:00* Test Item Value Reference Range Interpretation Comments Neutrophils # (Auto) (test code = 751-8) 5.4 2.1-6.9 [facility] CenterLymphocytes # (Auto)2019-10-18 14:33:00* Test Item Value Reference Range Interpretation Comments Lymphocytes # (Auto) (test code = 36345-2) 1.4 1.0-3.2 [facility] CenterMonocytes # (Auto)2019-10-18 14:33:00* Test Item Value Reference Range Interpretation Comments Monocytes # (Auto) (test code = 742-7) 0.6 0.2-0.8 [facility] CenterEosinophils # (Auto)2019-10-18 14:33:00* Test Item Value Reference Range Interpretation Comments Eosinophils # (Auto) (test code = 711-2) 0.2 0.0-0.4 [facility] CenterBasophils # (Auto)2019-10-18 14:33:00* Test Item Value Reference Range Interpretation Comments Basophils # (Auto) (test code = 704-7) 0.1 0.0-0.1 [facility] CenterAbsolute Immature Granulocyte (auto 2019-10-18 14:33:00* Test Item Value Reference Range Interpretation Comments Absolute Immature Granulocyte (auto (inocente t code = Absolute Immature Granulocyte (auto) 0.44 0-0.1 [facility] CenterCT [facility]BD[facility]PELVIS RJ1978-78-05 14:33:00 [facility] [address] [place] [address] Patient Name: FRANK PERRY MR #: [id number] : 1930 Age/Sex: 89/F Req #: [id number] Adm Physician: Ordered by: LILIANA GARCIA MD Report #: [id number] Location: ER Room/Bed: Procedure: [id number] CT/CT ABDOMEN/PELVIS WO Exam Date: 10/18/19 Exam Time: REPORT STATUS: Signed CT o f the [...] 1443 COPY TO: LILIANA SANZ MD Urine BDK6491-69-97 12:33:00* Test Item Value Reference Range Interpretation Comments Urine WBC (test code = 5821-4) 6-10 0-5 H [facility] CenterUrine CXS7961-05-13 12:33:00* Test Item Value Reference Range Interpretation Comments Urine RBC (test code = 39020-0) 11-20 0-5 H [facility] CenterUrine Qseduejn3947-15-94 12:33:00* Test Item Value Reference Range Interpretation Comments Urine Bacteria (test code = 94969-1) MODERATE NONE H [facility] CenterUrine Epithelial Gccdb0664-07-48 12:33:00 * Test Item Value Reference Range Interpretation Comments Urine Epithelial Cells (test code = 87740-3) FEW NONE [facility] CenterUrine Mwcga2257-30-67 12:26:00* Test Item Value Reference Range Interpretation Comments Urine Color (test code = 5778-6) YELLOW YELLOW [facility] CenterU[facility] Enrvtug5080-32-72 12:26:00* Test Item Value Reference Range Interpretation Comments Urine Clarity (test code = 11729-1) CLEAR CLEAR [facility] CenterU[facility] Specific Qiopqhw6742-16-57 12:26:00 * Test Item Value Reference Range Interpretation Comments Urine Specific [place] (test code = 5811-5) 1.020 1.010-1.02 5 [facility] CenterUrine jW2871-27-78 12:26:00* Test Item Value Reference Range Interpretation Comments Urine pH (test code = 65922-4) 7 5-7 [facility] CenterU[facility] Leukocyte Aqdeazgx4971-24-89 12:26:00* Test Item Value Reference Range Interpretation Comments Urine Leukocyte Esterase (test code = 5799-2) NEGATIVE NEGATIVE [facility] Eiwzkww4715-24-69 12:26:00* Test Item Value Reference Range Interpretation Comments Urine Nitrite (test code = 76921-6) NEGATIVE NEGATIVE [facility] Olsrzpl8436-85-45 12:26:00* Test Item Value Reference Range Interpretation Comments Urine Protein (test code = 5804-0) NEGATIVE NEGATIVE [facility] Glucose (UA)2019-10-18 12:26:00* Test Item Value Reference Range Interpretation Comments Urine Glucose (UA) (test code = 2349-9) NEGATIVE NEGATIVE [facility] Ydcagxs6560-81-40 12:26:00* Test Item Value Reference Range Interpretation Comments Urine Ketones (test code = 70363-0) NEGATIVE NEGATIVE [facility] Hlhsdbxsnwfy3494-26-25 12:26:00* Test Item Value Reference Range Interpretation Comments Urine Urobilinogen (test code = 82254-6) 0.2 0.2-1 [facility] CenterU[facility] Afjxpgwkj7696-75-89 12:26:00* Test Item Value Reference Range Interpretation Comments Urine Bilirubin (test code = 1978-6) NEGATIVE NEGATIVE [facility] CenterU[facility] Jxvkx3743-73-34 12:26:00* Test Item Value Reference Range Interpretation Comments Urine Blood (test code = 20043-6) TRACE NEGATIVE H [facility] CenterBacterial urine dndwymb2796-83-30 10:13:00* Test Item Value Reference Range Interpretation Comments Urine Culture (test code = 630-4) PSEUDOMONAS AERUGINOSA [facility] CenterBacterial urine rqsbtkd5349-52-11 10:13:00* Test Item Value Reference Range Interpretation Comments Urine Culture (test code = 630-4) PSEUDOMONAS AERUGINOSA [facility] CenterBacterial urine pudpyep2445-50-92 10:13:00* Test Item Value Reference Range Interpretation Comments Urine Culture (test code = 630-4) PSEUDOMONAS AERUGINOSA [facility]ale[facility] Oobyb2391-25-35 02:58:00* Test Item Value Reference Range Interpretation Comments Sodium Level (test code = 2951-2) 136 136-145 [facility] CenterPotassium Sigxo2086-85-70 02:58:00* Test Item Value Reference Range Interpretation Comments Potassium Level (test code = 2823-3) 3.9 3.5-5.1 [facility] CenterChloride Svckc6476-86-13 02:58:00* Test Item Value Reference Range Interpretation Comments Chloride Level (test code = 2075-0) 99 98-107 [facility] CenterCarbon Dioxide Yvmwv9993-48-15 02:58:00* Test Item Value Reference Range Interpretation Comments Carbon Dioxide Level (test code = 2028-9) 24 22-29 [facility] CenterAnion Vlu8316-07-31 02:58:00* Test Item Value Reference Range Interpretation Comments Anion Gap (test code = 73839-8) 16.9 8-16 H [facility] CenterBlood Urea Ytmipvgw9935-59-58 02:58:00* Test Item Value Reference Range Interpretation Comments Blood Urea Nitrogen (test code = 3094-0) 15 7-26 [facility] CenterCreatinine2020-01-28 02:58:00* Test Item Value Reference Range Interpretation Comments Creatinine (test code = 2160-0) 1.01 0.57-1.11 [facility] CenterBUN/Creatinine Mxzij8937-47-02 02:58:00* Test Item Value Reference Range Interpretation Comments BUN/Creatinine Ratio (test code = 3097-3) 15 6-25 [facility] CenterEstimat Glomerular Filtration Rate 2019-10-15 02:58:00* Test Item Value Reference Range Interpretation Comments Estimat Glomerular Filtration Rate (test code = 235002192) 52 >60 L Ranges were taken from the National Kidney Disease Education Program and the [facility] literature.Reference ranges:60 or greater: Rtuahh18-76 ( for 3 consecutive months): Chronic kidney disease 15 or less: Kidney failureTitus Regional Medical CenterGlucose Ehdwx5795-01-81 02:58:00* Test Item Value Reference Range Interpretation Comments Glucose Level (test code = JLS9253) 96 74-118 [facility] CenterCalcium Wvjod2144-46-16 02:58:00* Test Item Value Reference Range Interpretation Comments Calcium Level (test code = 56792-2) 9.7 8.4-10.2 [facility] CenterUrine KFN2861-56-57 02:54:00* Test Item Value Reference Range Interpretation Comments Urine WBC (test code = 5821-4) 11-20 0-5 H [facility] CenterUrine JRF7685-03-03 02:54:00* Test Item Value Reference Range Interpretation Comments Urine RBC (test code = 08038-1) 0-5 0-5 [facility] CenterUrine Wedlvcbv3225-62-72 02:54:00* Test Item Value Reference Range Interpretation Comments Urine Bacteria (test code = 13307-7) FEW NONE [facility] CenterUrine Epithelial Ftvut2568-72-30 02:54:00 * Test Item Value Reference Range Interpretation Comments Urine Epithelial Cells (test code = 29180-0) FEW NONE [facility] CenterWhite Blood Gvxrx0958-41-87 02:40:00* Test Item Value Reference Range Interpretation Comments White Blood Count (test code = 6690-2) 8.47 4.8-10.8 [facility] CenterRed Blood Uygbf9506-34-05 02:40:00* Test Item Value Reference Range Interpretation Comments Red Blood Count (test code = 789-8) 4.68 3.6-5.1 [facility] CenterHemoglobin2020-01-28 02:40:00* Test Item Value Reference Range Interpretation Comments Hemoglobin (test code = 39114-2) 14.1 12.0-16.0 [facility] CenterHematocrit2020-01-28 02:40:00* Test Item Value Reference Range Interpretation Comments Hematocrit (test code = 4544-3) 41.8 34.2-44.1 [facility] CenterMean Corpuscular Jdobzs0710-79-61 02:40:00* Test Item Value Reference Range Interpretation Comments Mean Corpuscular Volume (test code = 787-2) 89.3 81-99 [facility] CenterMean Corpuscular Qgvnncklsa3404-02-35 02:40:00* Test Item Value Reference Range Interpretation Comments Mean Corpuscular Hemoglobin (test code = 785-6) 30.1 28-32 [facility] CenterMean Corpuscular Hemoglobin Concent 2019-10-15 02:40:00* Test Item Value Reference Range Interpretation Comments Mean Corpuscular Hemoglobin Concent (test code = 786-4) 33.7 31-35 [facility] CenterRed Cell Distribution Ahuru5935-81-08 02:40:00* Test Item Value Reference Range Interpretation Comments Red Cell Distribution Width (test code = 69787-9) 13.0 11.7 -14.4 [facility] CenterPlatelet Yuhcf0788-10-85 02:40:00* Test Item Value Reference Range Interpretation Comments Platelet Count (test code = 777-3) 278 140-360 [facility] CenterNeutrophils (%) (Auto)2019-10-15 02:40:00 * Test Item Value Reference Range Interpretation Comments Neutrophils (%) (Auto) (test code = 60415-5) 74.8 38.7-80.0 [facility] CenterLymphocytes (%) (Auto)2019-10-15 02:40:00 * Test Item Value Reference Range Interpretation Comments Lymphocytes (%) (Auto) (test code = 736-9) 10.3 18.0-39.1 L [facility] CenterMonocytes (%) (Auto)2019-10-15 02:40:00* Test Item Value Reference Range Interpretation Comments Monocytes (%) (Auto) (test code = 5905-5) 6.6 4.4-11.3 [facility] CenterEosinophils (%) (Auto)2019-10-15 02:40:00 * Test Item Value Reference Range Interpretation Comments Eosinophils (%) (Auto) (test code = 713-8) 5.7 0.0-6.0 [facility] CenterBasophils (%) (Auto)2019-10-15 02:40:00* Test Item Value Reference Range Interpretation Comments Basophils (%) (Auto) (test code = 706-2) 0.6 0.0-1.0 [facility] CenterIM GRANULOCYTES %2019-10-15 02:40:00* Test Item Value Reference Range Interpretation Comments IM GRANULOCYTES % (test code = IM GRANULOCYTES %) 2.0 0.0- 1.0 H [facility] CenterNeutrophils # (Auto)2019-10-15 02:40:00* Test Item Value Reference Range Interpretation Comments Neutrophils # (Auto) (test code = 751-8) 6.3 2.1-6.9 [facility] CenterLymphocytes # (Auto)2019-10-15 02:40:00* Test Item Value Reference Range Interpretation Comments Lymphocytes # (Auto) (test code = 18857-3) 0.9 1.0-3.2 L [facility] CenterMonocytes # (Auto)2019-10-15 02:40:00* Test Item Value Reference Range Interpretation Comments Monocytes # (Auto) (test code = 742-7) 0.6 0.2-0.8 [facility] CenterEosinophils # (Auto)2019-10-15 02:40:00* Test Item Value Reference Range Interpretation Comments Eosinophils # (Auto) (test code = 711-2) 0.5 0.0-0.4 H [facility] CenterBasophils # (Auto)2019-10-15 02:40:00* Test Item Value Reference Range Interpretation Comments Basophils # (Auto) (test code = 704-7) 0.1 0.0-0.1 [facility] CenterAbsolute Immature Granulocyte (auto 2019-10-15 02:40:00* Test Item Value Reference Range Interpretation Comments Absolute Immature Granulocyte (auto (inocente t code = Absolute Immature Granulocyte (auto) 0.17 0-0.1 H [facility] CenterUrine Etnkr4768-48-59 02:40:00* Test Item Value Reference Range Interpretation Comments Urine Color (test code = 5778-6) YELLOW YELLOW [facility] CenterUrine Ccxbcws6397-22-68 02:40:00* Test Item Value Reference Range Interpretation Comments Urine Clarity (test code = 05670-9) CLEAR CLEAR [facility] CenterUrine Specific Voyvrsa9747-14-01 02:40:00 * Test Item Value Reference Range Interpretation Comments Urine Specific [place] (test code = 5811-5) 1.020 1.010-1.02 5 [facility] CenterUrine iB1145-10-24 02:40:00* Test Item Value Reference Range Interpretation Comments Urine pH (test code = 44216-4) 8 5-7 [facility] CenterUrine Leukocyte Nevwegcf0769-36-08 02:40:00* Test Item Value Reference Range Interpretation Comments Urine Leukocyte Esterase (test code = 5799-2) TRACE NEGATIVE H [facility] CenterUrine Tmcqsdt2299-70-94 02:40:00* Test Item Value Reference Range Interpretation Comments Urine Nitrite (test code = 91257-0) NEGATIVE NEGATIVE [facility] CenterUrine Fguprtb9511-40-71 02:40:00* Test Item Value Reference Range Interpretation Comments Urine Protein (test code = 5804-0) NEGATIVE NEGATIVE [facility] CenterUrine Glucose (UA)2019-10-15 02:40:00* Test Item Value Reference Range Interpretation Comments Urine Glucose (UA) (test code = 2349-9) NEGATIVE NEGATIVE [facility] CenterUrine Oubhmwh8335-93-49 02:40:00* Test Item Value Reference Range Interpretation Comments Urine Ketones (test code = 60018-3) NEGATIVE NEGATIVE [facility] CenterUrine Shzgwgzbjaia1499-71-30 02:40:00* Test Item Value Reference Range Interpretation Comments Urine Urobilinogen (test code = 66402-4) 0.2 0.2-1 [facility] CenterUrine Gzwebjneh3420-51-30 02:40:00* Test Item Value Reference Range Interpretation Comments Urine Bilirubin (test code = 1978-6) NEGATIVE NEGATIVE [facility] CenterUrine Cmglv3242-10-48 02:40:00* Test Item Value Reference Range Interpretation Comments Urine Blood (test code = 32345-7) TRACE NEGATIVE H [facility] CenterABDOMEN-1VIEW (KUB)2019-10-15 02:28:00 [facility] [address] [address] Patient Name: FRANK PERRY MR #: [id number] : 1930 Age/Sex: 89/F Req #: [id number] Adm Physician: Ordered by: ELIZABETH JAMES MD Report #: [id number] Location: ER Room/Bed: Procedure: [id number] DX/ABDOMEN-1VIEW [...] ELIZABETH JAMES MD ABDOMEN-1VIEW (KUB) 2019-09-27 11:22:00 [place] [address] Patient Name: FRANK PERRY MR #: [id number] : 1930 Age/Sex: 89/F Req #: [id number] Adm Physician: Ordered by: TAEDO HERNANDEZ MD Report #: [id number] Location: [facility] Room/Bed: Procedure: [id number] DX/AB DOMEN-1VIEW (B) Exam Date: 09/27/19 Exam Time: 103 0 [...] 1123 COPY TO: TADEO HERNANDEZ MD SACRUM FIRCPT4573-33-67 15:43:00 [place] [address] Patient Name: FRANK PERRY MR #: [id number] : 1930 Age/Sex: 89/F Req #: [id number] Adm Physician: Ordered by: TSERING CAMERON MD Report #: [id number] Location: ER Room/Bed: Procedure: [id number] D X/SACRUM COCCYX Exam Date: 08/09/19 Exam [...] 1546 Transcribed B y: ROLO on 08/09/19 154 COPY TO: TSERING CAMERON MD SP LUMBAR, COMPLETE MIN 7WY3937-95-33 15:43:00 [facility] [address] [address] Patient Name: FRANK PERRY MR #: [id number] : 1930 Age/Sex: 89/F Req #: [id number] Adm Physician: Ordered by: TSERING CAMERON MD Report #: [id number] Location: ER Room/Bed: Procedure: [id number] D X/SP LUMBAR, COMPLETE MIN 4VW Exam [...] on 08/09/2019 3:46 PM Dictated By: JAZMYN LARSNE MD 45 T ranscribed By: ROLO on 08/09/191545 COPY TO: TSERING CAMERON MD Urine Lgjsm2943-83-32 15:16:00* Test Item Value Reference Range Interpretation Comments Urine Color (test code = 5778-6) YELLOW YELLOW [facility] CenterUrine ILG9643-00-71 15:16:00* Test Item Value Reference Range Interpretation Comments Urine WBC (test code = 5821-4) NONE 0-5 [facility] CenterUrine VDL7509-26-25 15:16:00* Test Item Value Reference Range Interpretation Comments Urine RBC (test code = 96207-3) 0-5 0-5 [facility] CenterUrine Cxaxnunm2472-86-73 15:16:00* Test Item Value Reference Range Interpretation Comments Urine Bacteria (test code = 33119-2) NONE NONE [facility] CenterUrine Epithelial Rqxoo1539-00-31 15:16:00 * Test Item Value Reference Range Interpretation Comments Urine Epithelial Cells (test code = 31611-4) RARE NONE [facility] CenterUrine Cxpyvuo5378-71-06 14:59:00* Test Item Value Reference Range Interpretation Comments Urine Clarity (test code = 53010-9) CLEAR CLEAR [facility] CenterUrine Specific Lhgtpjj6406-65-09 14:59:00 * Test Item Value Reference Range Interpretation Comments Urine Specific [place] (test code = 5811-5) 1.010 1.010-1.02 5 [facility] CenterUrine lM4404-09-17 14:59:00* Test Item Value Reference Range Interpretation Comments Urine pH (test code = 90423-4) 8 5-7 [facility] CenterUrine Leukocyte Puzmcqax4519-79-61 14:59:00* Test Item Value Reference Range Interpretation Comments Urine Leukocyte Esterase (test code = 84368-8) NEGATIVE NEGATIV E [facility] CenterUrine Tcjpklr3226-47-78 14:59:00* Test Item Value Reference Range Interpretation Comments Urine Nitrite (test code = 19298-8) NEGATIVE NEGATIVE [facility] CenterUrine Diuptbt4658-86-17 14:59:00* Test Item Value Reference Range Interpretation Comments Urine Protein (test code = 38328-4) NEGATIVE NEGATIVE [facility] CenterUrine Glucose (UA)2019-08-09 14:59:00* Test Item Value Reference Range Interpretation Comments Urine Glucose (UA) (test code = 33181-0) NEGATIVE NEGATIVE [facility] CenterUrine Wclatyt1756-46-38 14:59:00* Test Item Value Reference Range Interpretation Comments Urine Ketones (test code = 68640-4) NEGATIVE NEGATIVE [facility] CenterUrine Xooauvbrgaaz7613-97-21 14:59:00* Test Item Value Reference Range Interpretation Comments Urine Urobilinogen (test code = 14500-5) 0.2 0.2-1 [facility] CenterUrine Zcaeucpex9243-27-40 14:59:00* Test Item Value Reference Range Interpretation Comments Urine Bilirubin (test code = 1977-8) NEGATIVE NEGATIVE [facility] CenterUrine Jliws5980-70-10 14:59:00* Test Item Value Reference Range Interpretation Comments Urine Blood (test code = 43606-5) 1+ NEGATIVE [facility] CenterCT ABDOMEN/PELVIS K2830-28-71 09:50:00 [place] [address] Patient Name: FRANK PERRY MR #: [id number] : 1930 Age/Sex: 89/F Req #: [id number] Adm Physician: Ordered by: SUYAPA ALATORRE MD Report #: [id number] Location: [place] Room/Bed: Procedure: [id number] CT/C T ABDOMEN/PELVIS W Exam Date: 07/03/19 [...] Sign ed By: YUMIKO RICH MD on 10/955 Transcribed By: ORLO on 07/03/19955 COPY TO: SUYAPA ALATORRE MD Blood Urea Sjdojlqo8573-05-41 08:27:00* Test Item Value Reference Range Interpretation Comments Blood Urea Nitrogen (test code = 3094-0) 27 7-26 H [facility] CenterCreatinine2019-10-16 08:27:00* Test Item Value Reference Range Interpretation Comments Creatinine (test code = 2160-0) 1.34 0.57-1.11 H [facility] CenterBUN/Creatinine Hgccu4299-02-00 08:27:00* Test Item Value Reference Range Interpretation Comments BUN/Creatinine Ratio (test code = 3097-3) 20 6-25 [facility] CenterEstimat Glomerular Filtration Rate 2019-07-03 08:27:00* Test Item Value Reference Range Interpretation Comments Estimat Glomerular Filtration Rate (test code = 395849342) 37 >60 L Ranges were taken from the National Kidney Disease Education Program and the [facility] Foundation literature.Reference ranges:60 or greater: Obvqsq72-01 ( for 3 consecutive months): Chronic kidney disease 15 or less: Kidney failureTitus Regional Medical CenterWhite Blood Cjqol2213-53-27 16:18:00* Test Item Value Reference Range Interpretation Comments White Blood Count (test code = 6690-2) 7.46 4.8-10.8 [facility] CenterRed Blood Olojo9151-16-11 16:18:00* Test Item Value Reference Range Interpretation Comments Red Blood Count (test code = 789-8) 3.86 3.6-5.1 [facility] CenterHemoglobin2019-09-18 16:18:00* Test Item Value Reference Range Interpretation Comments Hemoglobin (test code = 68287-1) 11.7 12.0-16.0 L [facility] CenterHematocrit2019-09-18 16:18:00* Test Item Value Reference Range Interpretation Comments Hematocrit (test code = 4544-3) 35.2 34.2-44.1 [facility] CenterMean Corpuscular Thykir0305-30-21 16:18:00* Test Item Value Reference Range Interpretation Comments Mean Corpuscular Volume (test code = 787-2) 91.2 81-99 [facility] CenterMean Corpuscular Bejghxmobw3289-34-84 16:18:00* Test Item Value Reference Range Interpretation Comments Mean Corpuscular Hemoglobin (test code = 785-6) 30.3 28-32 [facility] CenterMean Corpuscular Hemoglobin Concent 2019-06-05 16:18:00* Test Item Value Reference Range Interpretation Comments Mean Corpuscular Hemoglobin Concent (test code = 786-4) 33.2 31-35 [facility] CenterRed Cell Distribution Nmrzk7773-84-65 16:18:00* Test Item Value Reference Range Interpretation Comments Red Cell Distribution Width (test code = 46249-6) 13.0 11.7 -14.4 [facility] CenterPlatelet Ymsfq7089-47-69 16:18:00* Test Item Value Reference Range Interpretation Comments Platelet Count (test code = 777-3) 214 140-360 [facility] CenterNeutrophils (%) (Auto)2019-06-05 16:18:00 * Test Item Value Reference Range Interpretation Comments Neutrophils (%) (Auto) (test code = 40897-8) 64.8 38.7-80.0 [facility] CenterLymphocytes (%) (Auto)2019-06-05 16:18:00 * Test Item Value Reference Range Interpretation Comments Lymphocytes (%) (Auto) (test code = 736-9) 22.1 18.0-39.1 [facility] CenterMonocytes (%) (Auto)2019-06-05 16:18:00* Test Item Value Reference Range Interpretation Comments Monocytes (%) (Auto) (test code = 5905-5) 8.8 4.4-11.3 [facility] CenterEosinophils (%) (Auto)2019-06-05 16:18:00 * Test Item Value Reference Range Interpretation Comments Eosinophils (%) (Auto) (test code = 713-8) 2.9 0.0-6.0 [facility] CenterBasophils (%) (Auto)2019-06-05 16:18:00* Test Item Value Reference Range Interpretation Comments Basophils (%) (Auto) (test code = 706-2) 0.5 0.0-1.0 [facility] CenterIM GRANULOCYTES %2019-06-05 16:18:00* Test Item Value Reference Range Interpretation Comments IM GRANULOCYTES % (test code = IM GRANULOCYTES %) 0.9 0.0- 1.0 [facility] CenterNeutrophils # (Auto)2019-06-05 16:18:00* Test Item Value Reference Range Interpretation Comments Neutrophils # (Auto) (test code = 751-8) 4.8 2.1-6.9 [facility] CenterLymphocytes # (Auto)2019-06-05 16:18:00* Test Item Value Reference Range Interpretation Comments Lymphocytes # (Auto) (test code = 54167-2) 1.7 1.0-3.2 [facility] CenterMonocytes # (Auto)2019-06-05 16:18:00* Test Item Value Reference Range Interpretation Comments Monocytes # (Auto) (test code = 742-7) 0.7 0.2-0.8 [facility] CenterEosinophils # (Auto)2019-06-05 16:18:00* Test Item Value Reference Range Interpretation Comments Eosinophils # (Auto) (test code = 711-2) 0.2 0.0-0.4 [facility] CenterBasophils # (Auto)2019-06-05 16:18:00* Test Item Value Reference Range Interpretation Comments Basophils # (Auto) (test code = 704-7) 0.0 0.0-0.1 [facility] CenterAbsolute Immature Granulocyte (auto 2019-06-05 16:18:00* Test Item Value Reference Range Interpretation Comments Absolute Immature Granulocyte (auto (inocente t code = Absolute Immature Granulocyte (auto) 0.07 0-0.1 [facility] CenterTroponin E3648-82-19 12:37:00* Test Item Value Reference Range Interpretation Comments Troponin I (test code = DDW6059) 0.008 0-0.300 [place] 11211019-04-27 12:37:00* Test Item Value Reference Range Interpretation Comments Troponin I (test code = PGA1197) 0.008 0-0.300 [address] [place] 11211019-04-27 12:37:00* Test Item Value Reference Range Interpretation Comments Troponin I (test code = ALV8960) 0.008 0-0.300 [facility] CenterCreatine Kinase ZD8642-09-21 07:01:00* Test Item Value Reference Range Interpretation Comments Creatine Kinase MB (test code = 63243-6) 1.10 0-5.0 [facility] CenterCreatine Kinase OG5282-60-85 07:01:00* Test Item Value Reference Range Interpretation Comments Creatine Kinase MB (test code = 90385-9) 1.10 0-5.0 [facility] CenterCreatine Kinase EQ7795-37-57 07:01:00* Test Item Value Reference Range Interpretation Comments Creatine Kinase MB (test code = 79100-5) 1.10 0-5.0 [facility] CenterCreatine Bdniba3488-45-35 06:53:00* Test Item Value Reference Range Interpretation Comments Creatine Kinase (test code = 2157-6) 28 29-168 L [facility] Lsvstg9131-80-23 06:53:00* Test Item Value Reference Range Interpretation Comments Creatine Kinase (test code = 2157-6) 28 29-168 L [facility] CenterCreatine Zfziie1938-48-50 06:53:00* Test Item Value Reference Range Interpretation Comments Creatine Kinase (test code = 2157-6) 28 29-168 L [facility]odium Aiila4394-53-83 06:34:00* Test Item Value Reference Range Interpretation Comments Sodium Level (test code = 2951-2) 133 136-145 L [facility] CenterPotassium Glbib7836-30-45 06:34:00* Test Item Value Reference Range Interpretation Comments Potassium Level (test code = 2823-3) 4.5 3.5-5.1 [facility] CenterChloride Ntsbs7264-44-55 06:34:00* Test Item Value Reference Range Interpretation Comments Chloride Level (test code = 2075-0) 100 98-107 [facility] CenterCarbon Dioxide Jxmue0239-30-13 06:34:00* Test Item Value Reference Range Interpretation Comments Carbon Dioxide Level (test code = 2028-9) 25 22-29 [facility] CenterAnion Ovc2022-04-26 06:34:00* Test Item Value Reference Range Interpretation Comments Anion Gap (test code = 18834-6) 12.5 8-16 [facility] CenterBlood Urea Elxqyagi6949-16-99 06:34:00* Test Item Value Reference Range Interpretation Comments Blood Urea Nitrogen (test code = 3094-0) 19 7-26 [facility] CenterCreatinine2019-04-27 06:34:00* Test Item Value Reference Range Interpretation Comments Creatinine (test code = 2160-0) 1.04 0.57-1.11 [facility] CenterBUN/Creatinine Khwuk0064-38-68 06:34:00* Test Item Value Reference Range Interpretation Comments BUN/Creatinine Ratio (test code = 3097-3) 18 6-25 [facility] CenterEstimat Glomerular Filtration Rate 2019-01-12 06:34:00* Test Item Value Reference Range Interpretation Comments Estimat Glomerular Filtration Rate (test code = 603102710) 50 >60 L Ranges were taken from the National Kidney Disease Education Program and the [facility] literature.Reference ranges:60 or greater: Umdnxd39-86 ( for 3 consecutive months): Chronic kidney disease 15 or less: Kidney failureTitus Regional Medical CenterGlucose Zpcde7997-04-13 06:34:00* Test Item Value Reference Range Interpretation Comments Glucose Level (test code = GSX7287) 86 74-118 [facility] CenterCalcium Witxm3394-99-63 06:34:00* Test Item Value Reference Range Interpretation Comments Calcium Level (test code = 47953-0) 8.5 8.4-10.2 [facility] CenterTotal Wmkzjnmgf0894-62-25 06:34:00* Test Item Value Reference Range Interpretation Comments Total Bilirubin (test code = 1975-2) 0.6 0.2-1.2 [facility] CenterAspartate Amino Transf (AST/SGOT) 2019-01-12 06:34:00* Test Item Value Reference Range Interpretation Comments Aspartate Amino Transf (AST/SGOT) (test code = Aspartate Amino Transf (AST/SGOT)) 15 5-34 [facility] CenterAlanine Aminotransferase (ALT/SGPT) 2019-01-12 06:34:00* Test Item Value Reference Range Interpretation Comments Alanine Aminotransferase (ALT/SGPT) (test code = 1742-6) 13 0-55 [facility] Akvvaor8171-69-38 06:34:00* Test Item Value Reference Range Interpretation Comments Total Protein (test code = 2885-2) 5.6 6.5-8.1 L [facility] CenterAlbumin2019-04-27 06:34:00* Test Item Value Reference Range Interpretation Comments Albumin (test code = 1751-7) 2.9 3.5-5.0 L [facility] CenterGlobulin2019-04-27 06:34:00* Test Item Value Reference Range Interpretation Comments Globulin (test code = 48022-6) 2.7 2.3-3.5 [facility] CenterAlbumin/Globulin Cgobl5333-57-04 06:34:00 * Test Item Value Reference Range Interpretation Comments Albumin/Globulin Ratio (test code = 1759-0) 1.1 0.8-2.0 [facility] CenterAlkaline Mmugibytrbs8618-90-14 06:34:00* Test Item Value Reference Range Interpretation Comments Alkaline Phosphatase (test code = 6768-6) 53 40-150 [facility]aleodium Wjfih9061-28-61 06:34:00* Test Item Value Reference Range Interpretation Comments Sodium Level (test code = 2951-2) 133 136-145 L [facility] CenterPotassium Jlkty0652-53-91 06:34:00* Test Item Value Reference Range Interpretation Comments Potassium Level (test code = 2823-3) 4.5 3.5-5.1 [facility] CenterChloride Ulyqe4625-42-74 06:34:00* Test Item Value Reference Range Interpretation Comments Chloride Level (test code = 2075-0) 100 98-107 [facility] CenterCarbon Dioxide Lregq2010-63-83 06:34:00* Test Item Value Reference Range Interpretation Comments Carbon Dioxide Level (test code = 2028-9) 25 22-29 [facility] CenterAnion Okl4254-60-20 06:34:00* Test Item Value Reference Range Interpretation Comments Anion Gap (test code = 34863-7) 12.5 8-16 [facility] CenterGlucose Vgfoc2089-78-18 06:34:00* Test Item Value Reference Range Interpretation Comments Glucose Level (test code = SEZ0180) 86 74-118 [facility] CenterCalcium Opmas6411-88-69 06:34:00* Test Item Value Reference Range Interpretation Comments Calcium Level (test code = 68101-0) 8.5 8.4-10.2 [facility] CenterTotal Urkcsbzdm3716-53-65 06:34:00* Test Item Value Reference Range Interpretation Comments Total Bilirubin (test code = 1975-2) 0.6 0.2-1.2 [facility] CenterAspartate Amino Transf (AST/SGOT) 2019-01-12 06:34:00* Test Item Value Reference Range Interpretation Comments Aspartate Amino Transf (AST/SGOT) (test code = Aspartate Amino Transf (AST/SGOT)) 15 5-34 [facility] CenterAlanine Aminotransferase (ALT/SGPT) 2019-01-12 06:34:00* Test Item Value Reference Range Interpretation Comments Alanine Aminotransferase (ALT/SGPT) (test code = 1742-6) 13 0-55 [facility] CenterTotal Gfhwmug0940-02-15 06:34:00* Test Item Value Reference Range Interpretation Comments Total Protein (test code = 2885-2) 5.6 6.5-8.1 L [facility] CenterAlbumin2019-04-27 06:34:00* Test Item Value Reference Range Interpretation Comments Albumin (test code = 1751-7) 2.9 3.5-5.0 L [facility] CenterGlobulin2019-04-27 06:34:00* Test Item Value Reference Range Interpretation Comments Globulin (test code = 98719-9) 2.7 2.3-3.5 [facility] CenterAlbumin/Globulin Kaqqe2575-41-62 06:34:00 * Test Item Value Reference Range Interpretation Comments Albumin/Globulin Ratio (test code = 1759-0) 1.1 0.8-2.0 [facility] CenterAlkaline Jfnxrlspfly3996-08-54 06:34:00* Test Item Value Reference Range Interpretation Comments Alkaline Phosphatase (test code = 6768-6) 53 40-150 [facility] CenterTotal Qnelufcyp5115-26-55 06:34:00* Test Item Value Reference Range Interpretation Comments Total Bilirubin (test code = 1975-2) 0.6 0.2-1.2 [facility] CenterAspartate Amino Transf (AST/SGOT) 2019-01-12 06:34:00* Test Item Value Reference Range Interpretation Comments Aspartate Amino Transf (AST/SGOT) (test code = Aspartate Amino Transf (AST/SGOT)) 15 5-34 [facility] CenterAlanine Aminotransferase (ALT/SGPT) 2019-01-12 06:34:00* Test Item Value Reference Range Interpretation Comments Alanine Aminotransferase (ALT/SGPT) (test code = 1742-6) 13 0-55 [facility] CenterTotal Hghrcup1342-56-49 06:34:00* Test Item Value Reference Range Interpretation Comments Total Protein (test code = 2885-2) 5.6 6.5-8.1 L [facility] CenterAlbumin2019-04-27 06:34:00* Test Item Value Reference Range Interpretation Comments Albumin (test code = 1751-7) 2.9 3.5-5.0 L [facility] CenterGlobulin2019-04-27 06:34:00* Test Item Value Reference Range Interpretation Comments Globulin (test code = 01268-1) 2.7 2.3-3.5 [facility] CenterAlbumin/Globulin Gfnlf7676-51-53 06:34:00 * Test Item Value Reference Range Interpretation Comments Albumin/Globulin Ratio (test code = 1759-0) 1.1 0.8-2.0 [facility] CenterAlkaline Lijtnrnlztk1633-34-15 06:34:00* Test Item Value Reference Range Interpretation Comments Alkaline Phosphatase (test code = 6768-6) 53 40-150 [facility] CenterWhite Blood Xanze3526-89-76 06:22:00* Test Item Value Reference Range Interpretation Comments White Blood Count (test code = 6690-2) 7.94 4.8-10.8 [facility] CenterRed Blood Zibkm1587-16-29 06:22:00* Test Item Value Reference Range Interpretation Comments Red Blood Count (test code = 789-8) 4.11 3.6-5.1 [facility] CenterHemoglobin2019-04-27 06:22:00* Test Item Value Reference Range Interpretation Comments Hemoglobin (test code = 63530-0) 12.5 12.0-16.0 [facility] CenterHematocrit2019-04-27 06:22:00* Test Item Value Reference Range Interpretation Comments Hematocrit (test code = 4544-3) 36.8 34.2-44.1 [facility] CenterMean Corpuscular Xiospb6381-35-57 06:22:00* Test Item Value Reference Range Interpretation Comments Mean Corpuscular Volume (test code = 787-2) 89.5 81-99 [facility] CenterMean Corpuscular Haesxkmxky4607-62-84 06:22:00* Test Item Value Reference Range Interpretation Comments Mean Corpuscular Hemoglobin (test code = 785-6) 30.4 28-32 [facility] CenterMean Corpuscular Hemoglobin Concent 2019-01-12 06:22:00* Test Item Value Reference Range Interpretation Comments Mean Corpuscular Hemoglobin Concent (test code = 786-4) 34.0 31-35 [facility] CenterRed Cell Distribution Yroff4654-42-37 06:22:00* Test Item Value Reference Range Interpretation Comments Red Cell Distribution Width (test code = 98463-5) 12.9 11.7 -14.4 [facility] CenterPlatelet Ckrsn9021-39-60 06:22:00* Test Item Value Reference Range Interpretation Comments Platelet Count (test code = 777-3) 199 140-360 [facility] CenterNeutrophils (%) (Auto)2019-01-12 06:22:00 * Test Item Value Reference Range Interpretation Comments Neutrophils (%) (Auto) (test code = 24394-9) 48.0 38.7-80.0 [facility] CenterLymphocytes (%) (Auto)2019-01-12 06:22:00 * Test Item Value Reference Range Interpretation Comments Lymphocytes (%) (Auto) (test code = 736-9) 30.9 18.0-39.1 [facility] CenterMonocytes (%) (Auto)2019-01-12 06:22:00* Test Item Value Reference Range Interpretation Comments Monocytes (%) (Auto) (test code = 5905-5) 11.2 4.4-11.3 [facility] CenterEosinophils (%) (Auto)2019-01-12 06:22:00 * Test Item Value Reference Range Interpretation Comments Eosinophils (%) (Auto) (test code = 713-8) 5.2 0.0-6.0 [facility] CenterBasophils (%) (Auto)2019-01-12 06:22:00* Test Item Value Reference Range Interpretation Comments Basophils (%) (Auto) (test code = 706-2) 0.5 0.0-1.0 [facility] CenterIM GRANULOCYTES %2019-01-12 06:22:00* Test Item Value Reference Range Interpretation Comments IM GRANULOCYTES % (test code = IM GRANULOCYTES %) 4.2 0.0- 1.0 H [facility] CenterNeutrophils # (Auto)2019-01-12 06:22:00* Test Item Value Reference Range Interpretation Comments Neutrophils # (Auto) (test code = 751-8) 3.8 2.1-6.9 [facility] CenterLymphocytes # (Auto)2019-01-12 06:22:00* Test Item Value Reference Range Interpretation Comments Lymphocytes # (Auto) (test code = 13968-8) 2.5 1.0-3.2 [facility] CenterMonocytes # (Auto)2019-01-12 06:22:00* Test Item Value Reference Range Interpretation Comments Monocytes # (Auto) (test code = 742-7) 0.9 0.2-0.8 H [facility] CenterEosinophils # (Auto)2019-01-12 06:22:00* Test Item Value Reference Range Interpretation Comments Eosinophils # (Auto) (test code = 711-2) 0.4 0.0-0.4 [facility] CenterBasophils # (Auto)2019-01-12 06:22:00* Test Item Value Reference Range Interpretation Comments Basophils # (Auto) (test code = 704-7) 0.0 0.0-0.1 [facility] CenterAbsolute Immature Granulocyte (auto 2019-01-12 06:22:00* Test Item Value Reference Range Interpretation Comments Absolute Immature Granulocyte (auto (inocente t code = Absolute Immature Granulocyte (auto) 0.33 0-0.1 H [facility] CenterCXR 2 VIEW - LHPS7923-48-19 13:38:00 [place] [address] Patient Name: FRANK PERRY MR #: [id number] : 1930 Age/Sex: 88/F Req #: [id number] Adm Physician: CALEB ALATORRE MD Ordered by: LINDY WALKER MD Report #: [id number] Location: [facility] Room/Bed: [place] [address] Procedure: [id number] HOPD/CXR 2 VIEW - HOPD Exam Date: [...] GREGORY WALKER MD CHEST SINGLE (PORTABLE)2018-12-21 20:16:00 [place] [address] Patient Name: FRANK PERRY MR #: [id number] : 1930 Age/Sex: 88/F Req #: [id number] Adm Physician: Ordered by: LILIANA GARCIA MD Report #: [id number] Location: ER Room/Bed: Procedure: [id number] DX/CH EST SINGLE (PORTABLE) Exam Date: Exam [...] COPY TO: LILIANA GARCIA MD B-Type Natriuretic Caiyjec6083-94-47 19:31:00* Test Item Value Reference Range Interpretation Comments B-Type Natriuretic Peptide (test code = 20210-7) 219.8 0-100 H [facility] CenterB-Type Natriuretic Wqjvibn3123-40-38 19:31:00* Test Item Value Reference Range Interpretation Comments B-Type Natriuretic Peptide (test code = 96218-3) 219.8 0-100 H [facility] CenterB-Type Natriuretic Yvyowhn6948-06-61 19:31:00* Test Item Value Reference Range Interpretation Comments B-Type Natriuretic Peptide (test code = 07095-1) 219.8 0-100 H [facility] CenterB-Type Natriuretic Jlyjbte7736-88-11 19:31:00* Test Item Value Reference Range Interpretation Comments B-Type Natriuretic Peptide (test code = 94183-0) 219.8 0-100 H [facility] CenterCreatine Kinase GQ0229-78-94 19:27:00* Test Item Value Reference Range Interpretation Comments Creatine Kinase MB (test code = 41611-0) 5.50 0-5.0 H [facility] CenterTroponin Z3525-58-19 19:27:00* Test Item Value Reference Range Interpretation Comments Troponin I (test code = LPB0165) 0.015 0-0.300 [facility]aleodium Ddaou0250-92-18 19:21:00* Test Item Value Reference Range Interpretation Comments Sodium Level (test code = 2951-2) 133 136-145 L [facility] CenterPotassium Lmdow1624-38-14 19:21:00* Test Item Value Reference Range Interpretation Comments Potassium Level (test code = 2823-3) 4.0 3.5-5.1 [facility] CenterChloride Lwjwu1414-07-78 19:21:00* Test Item Value Reference Range Interpretation Comments Chloride Level (test code = 2075-0) 97 98-107 L [facility] CenterCarbon Dioxide Hwkxq2887-33-89 19:21:00* Test Item Value Reference Range Interpretation Comments Carbon Dioxide Level (test code = 2028-9) 27 22-29 [facility] CenterAnion Skh7688-59-47 19:21:00* Test Item Value Reference Range Interpretation Comments Anion Gap (test code = 97750-2) 13.0 8-16 [facility] CenterBlood Urea Rhkfedcz5919-20-20 19:21:00* Test Item Value Reference Range Interpretation Comments Blood Urea Nitrogen (test code = 3094-0) 18 7-26 [facility] CenterCreatinine2019-04-05 19:21:00* Test Item Value Reference Range Interpretation Comments Creatinine (test code = 2160-0) 0.96 0.57-1.11 [facility] CenterBUN/Creatinine Upmhy7658-11-45 19:21:00* Test Item Value Reference Range Interpretation Comments BUN/Creatinine Ratio (test code = 3097-3) 19 6-25 [facility] CenterEstimat Glomerular Filtration Rate 2018-12-21 19:21:00* Test Item Value Reference Range Interpretation Comments Estimat Glomerular Filtration Rate (test code = 961602720) 55 >60 L Ranges were taken from the National Kidney Disease Education Program and the [facility] literature.Reference ranges:60 or greater: Ymopzs36-57 ( for 3 consecutive months): Chronic kidney disease 15 or less: Kidney failureT[facility] Medical CenterGlucose Czrnl2678-53-10 19:21:00* Test Item Value Reference Range Interpretation Comments Glucose Level (test code = ZMO5220) 104 74-118 [facility] CenterCalcium Oyuzm1389-79-79 19:21:00* Test Item Value Reference Range Interpretation Comments Calcium Level (test code = 14639-9) 10.2 8.4-10.2 [facility] CenterTotal Asvkemzsr8158-93-65 19:21:00* Test Item Value Reference Range Interpretation Comments Total Bilirubin (test code = 1975-2) 0.7 0.2-1.2 [facility] CenterAspartate Amino Transf (AST/SGOT) 2018-12-21 19:21:00* Test Item Value Reference Range Interpretation Comments Aspartate Amino Transf (AST/SGOT) (test code = Aspartate Amino Transf (AST/SGOT)) 26 5-34 [facility] CenterAlanine Aminotransferase (ALT/SGPT) 2018-12-21 19:21:00* Test Item Value Reference Range Interpretation Comments Alanine Aminotransferase (ALT/SGPT) (test code = 1742-6) 16 0-55 [facility] Lcpbktt7501-44-12 19:21:00* Test Item Value Reference Range Interpretation Comments Total Protein (test code = 2885-2) 7.9 6.5-8.1 [facility] CenterAlbumin2019-04-05 19:21:00* Test Item Value Reference Range Interpretation Comments Albumin (test code = 1751-7) 4.2 3.5-5.0 [facility] CenterGlobulin2019-04-05 19:21:00* Test Item Value Reference Range Interpretation Comments Globulin (test code = 10188-2) 3.7 2.3-3.5 H [facility] CenterAlbumin/Globulin Jvmvt7446-06-03 19:21:00 * Test Item Value Reference Range Interpretation Comments Albumin/Globulin Ratio (test code = 1759-0) 1.1 0.8-2.0 [facility] CenterAlkaline Uqlbgytludr9877-45-28 19:21:00* Test Item Value Reference Range Interpretation Comments Alkaline Phosphatase (test code = 6768-6) 85 40-150 [facility] CenterCreatine Sykwfc4267-79-83 19:21:00* Test Item Value Reference Range Interpretation Comments Creatine Kinase (test code = 2157-6) 108 29-168 [facility] CenterProthrombin Sgfu0969-85-28 19:20:00* Test Item Value Reference Range Interpretation Comments Prothrombin Time (test code = 5902-2) 12.4 11.9-14.5 [facility] CenterProthromb Time International Ratio 2018-12-21 19:20:00* Test Item Value Reference Range Interpretation Comments Prothromb Time International Ratio (test code = 6301-6) 0.88 Oral Anticoagulant Therapy INR Values:1. Low Intensity Therapy 1.5 - 2.02 . Moderate Intensity Therapy 2.0 - 3.03. High Intensity Therapy(1) 2.5 - 3. 54. High Intensity Therapy(2) 3.0 - 4.05. Panic Value INR > 5.0 [facility] CenterActivated Partial Thromboplast Time 2018-12-21 19:20:00* Test Item Value Reference Range Interpretation Comments Activated Partial Thromboplast Time (test code = 44389-8) 31.5 23.8-35.5 [facility] CenterProthrombin Dgfr8506-69-35 19:20:00* Test Item Value Reference Range Interpretation Comments Prothrombin Time (test code = 5902-2) 12.4 11.9-14.5 [facility] CenterProthromb Time International Ratio 2018-12-21 19:20:00* Test Item Value Reference Range Interpretation Comments Prothromb Time International Ratio (test code = 6301-6) 0.88 Oral Anticoagulant Therapy INR Values:1. Low Intensity Therapy 1.5 - 2.02 . Moderate Intensity Therapy 2.0 - 3.03. High Intensity Therapy(1) 2.5 - 3. 54. High Intensity Therapy(2) 3.0 - 4.05. Panic Value INR > 5.0 [facility] CenterActivated Partial Thromboplast Time 2018-12-21 19:20:00* Test Item Value Reference Range Interpretation Comments Activated Partial Thromboplast Time (test code = 77936-3) 31.5 23.8-35.5 [facility] CenterProthrombin Yjom6117-29-30 19:20:00* Test Item Value Reference Range Interpretation Comments Prothrombin Time (test code = 5902-2) 12.4 11.9-14.5 [facility] CenterProthromb Time International Ratio 2018-12-21 19:20:00* Test Item Value Reference Range Interpretation Comments Prothromb Time International Ratio (test code = 6301-6) 0.88 Oral Anticoagulant Therapy INR Values:1. Low Intensity Therapy 1.5 - 2.02 . Moderate Intensity Therapy 2.0 - 3.03. High Intensity Therapy(1) 2.5 - 3. 54. High Intensity Therapy(2) 3.0 - 4.05. Panic Value INR > 5.0 [facility] CenterActivated Partial Thromboplast Time 2018-12-21 19:20:00* Test Item Value Reference Range Interpretation Comments Activated Partial Thromboplast Time (test code = 13606-7) 31.5 23.8-35.5 [facility] CenterProthrombin Uxdi6700-03-59 19:20:00* Test Item Value Reference Range Interpretation Comments Prothrombin Time (test code = 5902-2) 12.4 11.9-14.5 [facility] CenterProthromb Time International Ratio 2018-12-21 19:20:00* Test Item Value Reference Range Interpretation Comments Prothromb Time International Ratio (test code = 6301-6) 0.88 Oral Anticoagulant Therapy INR Values:1. Low Intensity Therapy 1.5 - 2.02 . Moderate Intensity Therapy 2.0 - 3.03. High Intensity Therapy(1) 2.5 - 3. 54. High Intensity Therapy(2) 3.0 - 4.05. Panic Value INR > 5.0 [facility] CenterActivated Partial Thromboplast Time 2018-12-21 19:20:00* Test Item Value Reference Range Interpretation Comments Activated Partial Thromboplast Time (test code = 27917-8) 31.5 23.8-35.5 [facility] CenterWhite Blood Wottd2336-32-10 19:18:00* Test Item Value Reference Range Interpretation Comments White Blood Count (test code = 6690-2) 8.83 4.8-10.8 [facility] CenterRed Blood Gswkx6944-17-46 19:18:00* Test Item Value Reference Range Interpretation Comments Red Blood Count (test code = 789-8) 4.76 3.6-5.1 [facility] CenterHemoglobin2019-04-05 19:18:00* Test Item Value Reference Range Interpretation Comments Hemoglobin (test code = 21764-9) 14.4 12.0-16.0 [facility] CenterHematocrit2019-04-05 19:18:00* Test Item Value Reference Range Interpretation Comments Hematocrit (test code = 4544-3) 42.7 34.2-44.1 [facility] CenterMean Corpuscular Qbyned4654-19-55 19:18:00* Test Item Value Reference Range Interpretation Comments Mean Corpuscular Volume (test code = 787-2) 89.7 81-99 [facility] CenterMean Corpuscular Qjanqkdxmu5856-38-01 19:18:00* Test Item Value Reference Range Interpretation Comments Mean Corpuscular Hemoglobin (test code = 785-6) 30.3 28-32 [facility] CenterMean Corpuscular Hemoglobin Concent 2018-12-21 19:18:00* Test Item Value Reference Range Interpretation Comments Mean Corpuscular Hemoglobin Concent (test code = 786-4) 33.7 31-35 [facility] CenterRed Cell Distribution Potmb2561-68-62 19:18:00* Test Item Value Reference Range Interpretation Comments Red Cell Distribution Width (test code = 31348-8) 12.1 11.7 -14.4 [facility] CenterPlatelet Qholz6888-40-39 19:18:00* Test Item Value Reference Range Interpretation Comments Platelet Count (test code = 777-3) 239 140-360 [facility] CenterNeutrophils (%) (Auto)2018-12-21 19:18:00 * Test Item Value Reference Range Interpretation Comments Neutrophils (%) (Auto) (test code = 17311-7) 72.8 38.7-80.0 [facility] CenterLymphocytes (%) (Auto)2018-12-21 19:18:00 * Test Item Value Reference Range Interpretation Comments Lymphocytes (%) (Auto) (test code = 736-9) 17.0 18.0-39.1 L [facility] CenterMonocytes (%) (Auto)2018-12-21 19:18:00* Test Item Value Reference Range Interpretation Comments Monocytes (%) (Auto) (test code = 5905-5) 6.7 4.4-11.3 [facility] CenterEosinophils (%) (Auto)2018-12-21 19:18:00 * Test Item Value Reference Range Interpretation Comments Eosinophils (%) (Auto) (test code = 713-8) 2.2 0.0-6.0 [facility] CenterBasophils (%) (Auto)2018-12-21 19:18:00* Test Item Value Reference Range Interpretation Comments Basophils (%) (Auto) (test code = 706-2) 0.5 0.0-1.0 [facility] CenterIM GRANULOCYTES %2018-12-21 19:18:00* Test Item Value Reference Range Interpretation Comments IM GRANULOCYTES % (test code = IM GRANULOCYTES %) 0.8 0.0- 1.0 [facility] CenterNeutrophils # (Auto)2018-12-21 19:18:00* Test Item Value Reference Range Interpretation Comments Neutrophils # (Auto) (test code = 751-8) 6.4 2.1-6.9 [facility] CenterLymphocytes # (Auto)2018-12-21 19:18:00* Test Item Value Reference Range Interpretation Comments Lymphocytes # (Auto) (test code = 61567-6) 1.5 1.0-3.2 [facility] CenterMonocytes # (Auto)2018-12-21 19:18:00* Test Item Value Reference Range Interpretation Comments Monocytes # (Auto) (test code = 742-7) 0.6 0.2-0.8 [facility] CenterEosinophils # (Auto)2018-12-21 19:18:00* Test Item Value Reference Range Interpretation Comments Eosinophils # (Auto) (test code = 711-2) 0.2 0.0-0.4 [facility] CenterBasophils # (Auto)2018-12-21 19:18:00* Test Item Value Reference Range Interpretation Comments Basophils # (Auto) (test code = 704-7) 0.0 0.0-0.1 [facility] CenterAbsolute Immature Granulocyte (auto 2018-12-21 19:18:00* Test Item Value Reference Range Interpretation Comments Absolute Immature Granulocyte (auto (inocente t code = Absolute Immature Granulocyte (auto) 0.07 0-0.1 [facility] CenterUrine Clgah8402-89-82 18:43:00* Test Item Value Reference Range Interpretation Comments Urine Color (test code = 5778-6) YELLOW YELLOW [facility] CenterU[facility] Idyokvz2014-44-04 18:43:00* Test Item Value Reference Range Interpretation Comments Urine Clarity (test code = 99463-9) CLEAR CLEAR [facility] CenterUrine Specific Epxcwjf1644-83-90 18:43:00 * Test Item Value Reference Range Interpretation Comments Urine Specific [place] (test code = 5811-5) 1.015 1.010-1.02 5 [facility] CenterUrine [id number] 18:43:00* Test Item Value Reference Range Interpretation Comments Urine pH (test code = 25169-9) 8 5-7 H [facility] CenterU[facility] Leukocyte Ovvenbnz1143-19-40 18:43:00* Test Item Value Reference Range Interpretation Comments Urine Leukocyte Esterase (test code = 5799-2) TRACE NEGATIVE H [facility] CenterUrine Twohqaw0619-67-25 18:43:00* Test Item Value Reference Range Interpretation Comments Urine Nitrite (test code = 32566-5) NEGATIVE NEGATIVE [facility] CenterU[facility] Ggcjnwq4124-12-93 18:43:00* Test Item Value Reference Range Interpretation Comments Urine Protein (test code = 5804-0) NEGATIVE NEGATIVE [facility] CenterUrine Glucose (UA)2018-12-21 18:43:00* Test Item Value Reference Range Interpretation Comments Urine Glucose (UA) (test code = 2349-9) NEGATIVE NEGATIVE [facility] CenterU[facility] Osndsnu8647-34-58 18:43:00* Test Item Value Reference Range Interpretation Comments Urine Ketones (test code = 59604-0) NEGATIVE NEGATIVE [facility] Jzgfqxqljzro7833-64-63 18:43:00* Test Item Value Reference Range Interpretation Comments Urine Urobilinogen (test code = 17522-8) 0.2 0.2-1 [facility] Mslhepifv3031-63-91 18:43:00* Test Item Value Reference Range Interpretation Comments Urine Bilirubin (test code = 1978-6) NEGATIVE NEGATIVE [facility] Iikoz4119-72-24 18:43:00* Test Item Value Reference Range Interpretation Comments Urine Blood (test code = 85990-2) 2+ NEGATIVE H [facility] CenterU[facility] KSW4732-21-05 18:43:00* Test Item Value Reference Range Interpretation Comments Urine WBC (test code = 5821-4) 6-10 0-5 H [facility] MHY1125-58-08 18:43:00* Test Item Value Reference Range Interpretation Comments Urine RBC (test code = 02354-3) 6-10 0-5 H [facility] CenterU[facility] Cvqmswtb4004-65-62 18:43:00* Test Item Value Reference Range Interpretation Comments Urine Bacteria (test code = 83075-5) MANY NONE H [facility] CenterUrine Epithelial Arctx4483-12-57 18:43:00 * Test Item Value Reference Range Interpretation Comments Urine Epithelial Cells (test code = 70834-0) FEW NONE [facility] Fqxvj3566-08-40 18:43:00* Test Item Value Reference Range Interpretation Comments Urine Color (test code = 5778-6) YELLOW YELLOW [facility] CenterU[facility] Hdytgvs2074-65-61 18:43:00* Test Item Value Reference Range Interpretation Comments Urine Clarity (test code = 13787-7) CLEAR CLEAR [facility] CenterU[facility] Specific Jkkcrst7205-86-57 18:43:00 * Test Item Value Reference Range Interpretation Comments Urine Specific [place] (test code = 5811-5) 1.015 1.010-1.02 5 [facility] CenterU[facility] sB4212-03-45 18:43:00* Test Item Value Reference Range Interpretation Comments Urine pH (test code = 92514-8) 8 5-7 H [facility] CenterUrine Leukocyte Lvscqxhc1069-70-08 18:43:00* Test Item Value Reference Range Interpretation Comments Urine Leukocyte Esterase (test code = 5799-2) TRACE NEGATIVE H [facility] Xktemwl7181-18-43 18:43:00* Test Item Value Reference Range Interpretation Comments Urine Nitrite (test code = 23102-4) NEGATIVE NEGATIVE [facility] CenterU[facility] Grvsauf7534-54-82 18:43:00* Test Item Value Reference Range Interpretation Comments Urine Protein (test code = 5804-0) NEGATIVE NEGATIVE [facility] CenterUrine Glucose (UA)2018-12-21 18:43:00* Test Item Value Reference Range Interpretation Comments Urine Glucose (UA) (test code = 2349-9) NEGATIVE NEGATIVE [facility] CenterU[facility] Nayfbey2602-46-39 18:43:00* Test Item Value Reference Range Interpretation Comments Urine Ketones (test code = 02140-1) NEGATIVE NEGATIVE [facility] CenterU[facility] Dslgxkzuiqvw8305-48-48 18:43:00* Test Item Value Reference Range Interpretation Comments Urine Urobilinogen (test code = 26799-6) 0.2 0.2-1 [facility] CenterU[facility] Ggkuhqihv0590-73-75 18:43:00* Test Item Value Reference Range Interpretation Comments Urine Bilirubin (test code = 1978-6) NEGATIVE NEGATIVE [facility] CenterU[facility] Lvuyw8180-16-86 18:43:00* Test Item Value Reference Range Interpretation Comments Urine Blood (test code = 54892-5) 2+ NEGATIVE H [facility] CenterU[facility] MZN3260-89-16 18:43:00* Test Item Value Reference Range Interpretation Comments Urine WBC (test code = 5821-4) 6-10 0-5 H [facility] CenterU[facility] PPI2749-47-04 18:43:00* Test Item Value Reference Range Interpretation Comments Urine RBC (test code = 77744-4) 6-10 0-5 H [facility] CenterUrine Hifohwng2880-13-98 18:43:00* Test Item Value Reference Range Interpretation Comments Urine Bacteria (test code = 36617-5) MANY NONE H [facility] CenterUrine Epithelial Ktxao4213-54-52 18:43:00 * Test Item Value Reference Range Interpretation Comments Urine Epithelial Cells (test code = 40311-1) FEW NONE [facility] CenterCreatine Kinase WQ4016-81-59 04:59:00* Test Item Value Reference Range Interpretation Comments Creatine Kinase MB (test code = 82889-2) 4.70 0-5.0 [facility] CenterTroponin X9946-60-40 04:59:00* Test Item Value Reference Range Interpretation Comments Troponin I (test code = CVW1943) 0.005 0-0.300 [facility] CenterCreatine Beopzr0950-94-30 04:55:00* Test Item Value Reference Range Interpretation Comments Creatine Kinase (test code = 2157-6) 103 29-168 [facility] Uycjr8536-49-75 01:44:00* Test Item Value Reference Range Interpretation Comments Sodium Level (test code = 2951-2) 135 136-145 L [facility] CenterPotassium Anhhc9314-03-80 01:44:00* Test Item Value Reference Range Interpretation Comments Potassium Level (test code = 2823-3) 3.9 3.5-5.1 [facility] CenterChloride Fpfev6545-61-77 01:44:00* Test Item Value Reference Range Interpretation Comments Chloride Level (test code = 2075-0) 101 98-107 [facility] CenterAnion Nii2723-35-40 01:39:00* Test Item Value Reference Range Interpretation Comments Anion Gap (test code = 39373-9) 12.9 8-16 [facility] CenterMagnesium Ojwly4655-76-76 01:39:00* Test Item Value Reference Range Interpretation Comments Magnesium Level (test code = 24613-9) 2.0 1.3-2.1 [facility] CenterCarbon Dioxide Emagx5128-90-53 01:34:00* Test Item Value Reference Range Interpretation Comments Carbon Dioxide Level (test code = 2028-9) 25 22-29 [facility] CenterBlood Urea Kmgkfnlv9983-33-13 01:34:00* Test Item Value Reference Range Interpretation Comments Blood Urea Nitrogen (test code = 3094-0) 17 7- [facility] CenterCreatinine2018-05-13 01:34:00* Test Item Value Reference Range Interpretation Comments Creatinine (test code = 2160-0) 0.89 0.57-1.11 [facility] CenterBUN/Creatinine Amuzd9840-52-31 01:34:00* Test Item Value Reference Range Interpretation Comments BUN/Creatinine Ratio (test code = 3097-3) 19 6-25 [facility] CenterEstimat Glomerular Filtration Rate 2018-01-28 01:34:00* Test Item Value Reference Range Interpretation Comments Estimat Glomerular Filtration Rate (test code = 48690-5) 60 >60 Ranges were taken from the National Kidney Disease Education Program and the [facility] literature.Reference ranges:60 or greater: Uijumu64-33 ( for 3 consecutive months): Chronic kidney disease 15 or less: Kidney failureT[facility] Regional Medical CenterGlucose Bdbpg3822-63-56 01:34:00* Test Item Value Reference Range Interpretation Comments Glucose Level (test code = EAN1252) 106 74-118 [facility] CenterCalcium Rqwpj1107-06-43 01:34:00* Test Item Value Reference Range Interpretation Comments Calcium Level (test code = 17590-1) 9.7 8.4-10.2 [facility] CenterTotal Ptbzkmiom8153-94-15 01:34:00* Test Item Value Reference Range Interpretation Comments Total Bilirubin (test code = 1975-2) 0.4 0.2-1.2 [facility] CenterAspartate Amino Transf (AST/SGOT) 2018-01-28 01:34:00* Test Item Value Reference Range Interpretation Comments Aspartate Amino Transf (AST/SGOT) (test code = Aspartate Amino Transf (AST/SGOT)) 20 5-34 [facility] CenterAlanine Aminotransferase (ALT/SGPT) 2018-01-28 01:34:00* Test Item Value Reference Range Interpretation Comments Alanine Aminotransferase (ALT/SGPT) (test code = 1742-6) 14 0-55 [facility] CenterTotal Jnitjju9980-77-46 01:34:00* Test Item Value Reference Range Interpretation Comments Total Protein (test code = 2885-2) 7.0 6.5-8.1 [facility] CenterAlbumin2018-05-13 01:34:00* Test Item Value Reference Range Interpretation Comments Albumin (test code = 1751-7) 3.6 3.5-5.0 [facility] CenterGlobulin2018-05-13 01:34:00* Test Item Value Reference Range Interpretation Comments Globulin (test code = 15848-5) 3.4 2.3-3.5 [facility] CenterAlbumin/Globulin Tayqs6090-86-96 01:34:00 * Test Item Value Reference Range Interpretation Comments Albumin/Globulin Ratio (test code = 1759-0) 1.1 0.8-2.0 [facility] CenterAlkaline Kwphjuigcwj8664-37-82 01:34:00* Test Item Value Reference Range Interpretation Comments Alkaline Phosphatase (test code = 6768-6) 88 40-150 [facility] CenterActivated Partial Thromboplast Time 2018-01-28 01:21:00* Test Item Value Reference Range Interpretation Comments Activated Partial Thromboplast Time (test code = 78752-2) 29.7 23.8-35.5 [facility] CenterUrine COA0003-94-20 01:20:00* Test Item Value Reference Range Interpretation Comments Urine WBC (test code = 5821-4) 0-5 0-5 [facility] CenterUrine QVM9538-94-54 01:20:00* Test Item Value Reference Range Interpretation Comments Urine RBC (test code = 24795-3) 6-10 0-5 H [facility] CenterUrine Tikqzvki0512-20-83 01:20:00* Test Item Value Reference Range Interpretation Comments Urine Bacteria (test code = 83967-9) NONE NONE [facility] CenterUrine Epithelial Koogv3277-45-86 01:20:00 * Test Item Value Reference Range Interpretation Comments Urine Epithelial Cells (test code = 16031-2) NONE NONE [facility] CenterUrine Qbgcc0959-28-55 01:17:00* Test Item Value Reference Range Interpretation Comments Urine Color (test code = 5778-6) YELLOW YELLOW [facility] CenterUrine Tdhibue2339-67-77 01:17:00* Test Item Value Reference Range Interpretation Comments Urine Clarity (test code = 29368-8) CLEAR CLEAR [facility] Specific Wffjzjg1943-20-22 01:17:00 * Test Item Value Reference Range Interpretation Comments Urine Specific [place] (test code = 5811-5) 1.015 1.010-1.02 5 [facility] CenterUrine zB7879-65-30 01:17:00* Test Item Value Reference Range Interpretation Comments Urine pH (test code = 08328-4) 7 5-7 [facility] CenterUrine Leukocyte Awbehtkl7694-49-75 01:17:00* Test Item Value Reference Range Interpretation Comments Urine Leukocyte Esterase (test code = 5799-2) NEGATIVE NEGATIVE [facility] CenterUrine Qjhnidk1868-76-88 01:17:00* Test Item Value Reference Range Interpretation Comments Urine Nitrite (test code = 54056-4) NEGATIVE NEGATIVE [facility] CenterUrine Smjjjft3538-17-24 01:17:00* Test Item Value Reference Range Interpretation Comments Urine Protein (test code = 5804-0) NEGATIVE NEGATIVE [facility] CenterUrine Glucose (UA)2018-01-28 01:17:00* Test Item Value Reference Range Interpretation Comments Urine Glucose (UA) (test code = 2349-9) NEGATIVE NEGATIVE [facility] CenterUrine Deozmcr8812-49-70 01:17:00* Test Item Value Reference Range Interpretation Comments Urine Ketones (test code = 53075-6) NEGATIVE NEGATIVE [facility] CenterUrine Bjlojruizfwk9564-81-27 01:17:00* Test Item Value Reference Range Interpretation Comments Urine Urobilinogen (test code = 90967-9) 0.2 0.2-1 [facility] CenterUrine Zfhnsdido1782-05-19 01:17:00* Test Item Value Reference Range Interpretation Comments Urine Bilirubin (test code = 1978-6) NEGATIVE NEGATIVE [facility] CenterUrine Fnldd0168-20-33 01:17:00* Test Item Value Reference Range Interpretation Comments Urine Blood (test code = 57656-3) TRACE NEGATIVE H [facility] CenterProthrombin Wutd1571-21-08 01:16:00* Test Item Value Reference Range Interpretation Comments Prothrombin Time (test code = 5902-2) 12.6 11.9-14.5 [facility] CenterProthromb Time International Ratio 2018-01-28 01:16:00* Test Item Value Reference Range Interpretation Comments Prothromb Time International Ratio (test code = 6301-6) 1.02 Oral Anticoagulant Therapy INR Values:1. Low Intensity Therapy 1.5 - 2.02 . Moderate Intensity Therapy 2.0 - 3.03. High Intensity Therapy(1) 2.5 - 3. 54. High Intensity Therapy(2) 3.0 - 4.05. Panic Value INR > 5.0 [facility] CenterWhite Blood Tokbt0791-97-53 01:13:00* Test Item Value Reference Range Interpretation Comments White Blood Count (test code = 6690-2) 6.94 4.8-10.8 [facility] CenterRed Blood Gwmmm7703-30-92 01:13:00* Test Item Value Reference Range Interpretation Comments Red Blood Count (test code = 789-8) 4.21 3.6-5.1 [facility] CenterHemoglobin2018-05-13 01:13:00* Test Item Value Reference Range Interpretation Comments Hemoglobin (test code = 93556-7) 12.5 12.0-16.0 [facility] CenterHematocrit2018-05-13 01:13:00* Test Item Value Reference Range Interpretation Comments Hematocrit (test code = 4544-3) 37.3 34.2-44.1 [facility] CenterMean Corpuscular Fekmcr1079-74-23 01:13:00* Test Item Value Reference Range Interpretation Comments Mean Corpuscular Volume (test code = 787-2) 88.6 81-99 [facility] CenterMean Corpuscular Rxglgpbzoh6455-71-75 01:13:00* Test Item Value Reference Range Interpretation Comments Mean Corpuscular Hemoglobin (test code = 785-6) 29.7 28-32 [facility] Hemoglobin Concent 2018-01-28 01:13:00* Test Item Value Reference Range Interpretation Comments Mean Corpuscular Hemoglobin Concent (test code = 786-4) 33.5 31-35 [facility] CenterRed Cell Distribution Bysrl5758-48-31 01:13:00* Test Item Value Reference Range Interpretation Comments Red Cell Distribution Width (test code = 05343-8) 13.2 11.7 -14.4 [facility] CenterPlatelet Yrykc2570-98-96 01:13:00* Test Item Value Reference Range Interpretation Comments Platelet Count (test code = 777-3) 240 140-360 [facility] CenterNeutrophils (%) (Auto)2018-01-28 01:13:00 * Test Item Value Reference Range Interpretation Comments Neutrophils (%) (Auto) (test code = 65224-8) 63.6 38.7-80.0 [facility] CenterLymphocytes (%) (Auto)2018-01-28 01:13:00 * Test Item Value Reference Range Interpretation Comments Lymphocytes (%) (Auto) (test code = 736-9) 21.0 18.0-39.1 [facility] CenterMonocytes (%) (Auto)2018-01-28 01:13:00* Test Item Value Reference Range Interpretation Comments Monocytes (%) (Auto) (test code = 5905-5) 10.4 4.4-11.3 [facility] CenterEosinophils (%) (Auto)2018-01-28 01:13:00 * Test Item Value Reference Range Interpretation Comments Eosinophils (%) (Auto) (test code = 713-8) 4.0 0.0-6.0 [facility] CenterBasophils (%) (Auto)2018-01-28 01:13:00* Test Item Value Reference Range Interpretation Comments Basophils (%) (Auto) (test code = 706-2) 0.4 0.0-1.0 [facility] CenterIM GRANULOCYTES %2018-01-28 01:13:00* Test Item Value Reference Range Interpretation Comments IM GRANULOCYTES % (test code = IM GRANULOCYTES %) 0.6 0.0- 1.0 [facility] CenterNeutrophils # (Auto)2018-01-28 01:13:00* Test Item Value Reference Range Interpretation Comments Neutrophils # (Auto) (test code = 751-8) 4.4 2.1-6.9 [facility] CenterLymphocytes # (Auto)2018-01-28 01:13:00* Test Item Value Reference Range Interpretation Comments Lymphocytes # (Auto) (test code = 31953-8) 1.5 1.0-3.2 [facility] CenterMonocytes # (Auto)2018-01-28 01:13:00* Test Item Value Reference Range Interpretation Comments Monocytes # (Auto) (test code = 742-7) 0.7 0.2-0.8 [facility] CenterEosinophils # (Auto)2018-01-28 01:13:00* Test Item Value Reference Range Interpretation Comments Eosinophils # (Auto) (test code = 711-2) 0.3 0.0-0.4 [facility] CenterBasophils # (Auto)2018-01-28 01:13:00* Test Item Value Reference Range Interpretation Comments Basophils # (Auto) (test code = 704-7) 0.0 0.0-0.1 [facility] CenterAbsolute Immature Granulocyte (auto 2018-01-28 01:13:00* Test Item Value Reference Range Interpretation Comments Absolute Immature Granulocyte (auto (inocente t code = Absolute Immature Granulocyte (auto) 0.04 0-0.1 [facility]aleodium Wngte0748-16-27 09:37:00* Test Item Value Reference Range Interpretation Comments Sodium Level (test code = 2951-2) 136 136-145 [facility] CenterPotassium Mdkfq1310-29-34 09:37:00* Test Item Value Reference Range Interpretation Comments Potassium Level (test code = 2823-3) 4.2 3.5-5.1 [facility] CenterChloride Nsxug2366-47-74 09:37:00* Test Item Value Reference Range Interpretation Comments Chloride Level (test code = 2075-0) 97 98-107 L [facility] CenterCarbon Dioxide Plvlg9896-18-94 09:37:00* Test Item Value Reference Range Interpretation Comments Carbon Dioxide Level (test code = 2028-9) 27 22-29 [facility] CenterAnion Dan0655-97-65 09:37:00* Test Item Value Reference Range Interpretation Comments Anion Gap (test code = 72289-4) 16.2 8-16 H [facility] CenterBlood Urea Lxdxqycm6311-75-06 09:37:00* Test Item Value Reference Range Interpretation Comments Blood Urea Nitrogen (test code = 3094-0) 17 7-26 [facility] CenterCreatinine2018-04-25 09:37:00* Test Item Value Reference Range Interpretation Comments Creatinine (test code = 2160-0) 1.04 0.57-1.11 [facility] CenterBUN/Creatinine Ejuys9621-64-93 09:37:00* Test Item Value Reference Range Interpretation Comments BUN/Creatinine Ratio (test code = 3097-3) 16 6-25 [facility] CenterEstimat Glomerular Filtration Rate 2018-01-10 09:37:00* Test Item Value Reference Range Interpretation Comments Estimat Glomerular Filtration Rate (test code = 36296-7) 50 >60 L Ranges were taken from the National Kidney Disease Education Program and the [facility] literature.Reference ranges:60 or greater: Jwtkqb27-20 ( for 3 consecutive months): Chronic kidney disease 15 or less: Kidney failureT[facility] Medical CenterGlucose Usmxd8426-39-26 09:37:00* Test Item Value Reference Range Interpretation Comments Glucose Level (test code = KPH8575) 165 74-118 H [facility] CenterCalcium Ryyjq7081-45-09 09:37:00* Test Item Value Reference Range Interpretation Comments Calcium Level (test code = 02611-8) 9.6 8.4-10.2 [facility] CenterUrine Vrpesvaffd8163-54-57 06:16:00* Test Item Value Reference Range Interpretation Comments Urine Osmolality (test code = 2695-5) 217 . 24 hr : 300 - 900 Random: 50 - 1400 After 12hr fluid restriction: >850Performed at: [facility] [address] [id number] Director: EARNEST Amaral MD, Phone: [phone] Scott & [facility] Sunnyvaleerum Osmolality 2018-01-09 06:16:00* Test Item Value Reference Range Interpretation Comments Serum Osmolality (test code = 2692-2) 243 280-301 L Verified by repeat analysisPerformed at: [facility] [address] [id number] Director: EARNEST Amaral MD, Phone: [phone] [facility] CenterUrine Uaiqsjrsts4127-68-25 06:16:00* Test Item Value Reference Range Interpretation Comments Urine Osmolality (test code = 2695-5) 217 . 24 hr : 300 - 900 Random: 50 - 1400 After 12hr fluid restriction: >850Performed at: [facility] [address] [id number] Director: EARNEST Amaral MD, Phone: [phone] Scott & White [facility] Center – Sunnyvaleerum Osmolality 2018-01-09 06:16:00* Test Item Value Reference Range Interpretation Comments Serum Osmolality (test code = 2692-2) 243 280-301 L Verified by repeat analysisPerformed at: [facility] [address] [id number] Director: EARNEST Amaral MD, Phone: [phone] [facility] CenterMagnesium Kdexg2512-74-77 06:59:00* Test Item Value Reference Range Interpretation Comments Magnesium Level (test code = 15019-2) 2.3 1.3-2.1 H [facility] CenterWhite Blood Dvyiy8931-29-67 06:17:00* Test Item Value Reference Range Interpretation Comments White Blood Count (test code = 6690-2) 7.81 4.8-10.8 [facility] CenterRed Blood Oglpq6670-41-47 06:17:00* Test Item Value Reference Range Interpretation Comments Red Blood Count (test code = 789-8) 3.61 3.6-5.1 [facility] CenterHemoglobin2018-04-23 06:17:00* Test Item Value Reference Range Interpretation Comments Hemoglobin (test code = 65186-7) 10.6 12.0-16.0 L [facility] CenterHematocrit2018-04-23 06:17:00* Test Item Value Reference Range Interpretation Comments Hematocrit (test code = 4544-3) 31.5 34.2-44.1 L [facility] CenterMean Corpuscular Ukhhmv7594-23-79 06:17:00* Test Item Value Reference Range Interpretation Comments Mean Corpuscular Volume (test code = 787-2) 87.3 81-99 [facility] CenterMean Corpuscular Urgityirvr1058-86-50 06:17:00* Test Item Value Reference Range Interpretation Comments Mean Corpuscular Hemoglobin (test code = 785-6) 29.4 28-32 [facility] CenterMean Corpuscular Hemoglobin Concent 2018-01-08 06:17:00* Test Item Value Reference Range Interpretation Comments Mean Corpuscular Hemoglobin Concent (test code = 786-4) 33.7 31-35 [facility] CenterRed Cell Distribution Tmwcf7891-69-45 06:17:00* Test Item Value Reference Range Interpretation Comments Red Cell Distribution Width (test code = 80272-9) 13.2 11.7 -14.4 [facility] CenterPlatelet Meyhj7557-11-34 06:17:00* Test Item Value Reference Range Interpretation Comments Platelet Count (test code = 777-3) 231 140-360 [facility] CenterNeutrophils (%) (Auto)2018-01-08 06:17:00 * Test Item Value Reference Range Interpretation Comments Neutrophils (%) (Auto) (test code = 56263-5) 61.8 38.7-80.0 [facility] CenterLymphocytes (%) (Auto)2018-01-08 06:17:00 * Test Item Value Reference Range Interpretation Comments Lymphocytes (%) (Auto) (test code = 736-9) 17.4 18.0-39.1 L [facility] CenterMonocytes (%) (Auto)2018-01-08 06:17:00* Test Item Value Reference Range Interpretation Comments Monocytes (%) (Auto) (test code = 5905-5) 12.5 4.4-11.3 H [facility] CenterEosinophils (%) (Auto)2018-01-08 06:17:00 * Test Item Value Reference Range Interpretation Comments Eosinophils (%) (Auto) (test code = 713-8) 6.9 0.0-6.0 [facility] (Auto)2018-01-08 06:17:00* Test Item Value Reference Range Interpretation Comments Basophils (%) (Auto) (test code = 706-2) 0.6 0.0-1.0 [facility] CenterIM [facility]ANULOCYTES %2018-01-08 06:17:00* Test Item Value Reference Range Interpretation Comments IM GRANULOCYTES % (test code = IM GRANULOCYTES %) 0.8 0.0- 1.0 [facility] CenterNeutrophils # (Auto)2018-01-08 06:17:00* Test Item Value Reference Range Interpretation Comments Neutrophils # (Auto) (test code = 751-8) 4.8 2.1-6.9 [facility] CenterLymphocytes # (Auto)2018-01-08 06:17:00* Test Item Value Reference Range Interpretation Comments Lymphocytes # (Auto) (test code = 00450-5) 1.4 1.0-3.2 [facility] CenterMonocytes # (Auto)2018-01-08 06:17:00* Test Item Value Reference Range Interpretation Comments Monocytes # (Auto) (test code = 742-7) 1.0 0.2-0.8 H [facility] CenterEosinophils # (Auto)2018-01-08 06:17:00* Test Item Value Reference Range Interpretation Comments Eosinophils # (Auto) (test code = 711-2) 0.5 0.0-0.4 H [facility] CenterBasophils # (Auto)2018-01-08 06:17:00* Test Item Value Reference Range Interpretation Comments Basophils # (Auto) (test code = 704-7) 0.1 0.0-0.1 [facility] CenterAbsolute Immature Granulocyte (auto 2018-01-08 06:17:00* Test Item Value Reference Range Interpretation Comments Absolute Immature Granulocyte (auto (inocente t code = Absolute Immature Granulocyte (auto) 0.06 0-0.1 [facility] CenterUrine Chloride mmol/Htp4603-82-73 06:13:00* Test Item Value Reference Range Interpretation Comments Urine Chloride mmol/Day (test code = 66498-8) Comment 110-250 No total volume submitted. Unable to calculate 24 hourresult.Performed at: [employer] - [employer] [id number] Director: Drew alfaro MD, Phone: [phone] Regional Medical CenterUrine Chloride mmol/Rse3792-89-27 06:13:00* Test Item Value Reference Range Interpretation Comments Urine Chloride mmol/Day (test code = 38648-9) Comment 110-250 No total volume submitted. Unable to calculate 24 hourresult.Performed at: [employer] - [facility] [id number] Director: Drew alfaro MD, Phone: [phone] Regional Medical CenterUrine Chloride 2018-01-07 12:27:00* Test Item Value Reference Range Interpretation Comments Urine Chloride (test code = 53688-9) 53 [facility] CenterUrine Yfdcdtsa0940-03-36 12:27:00* Test Item Value Reference Range Interpretation Comments Urine Chloride (test code = 50355-1) 53 [facility] CenterTotal Blfyeqdhb4431-41-63 05:31:00* Test Item Value Reference Range Interpretation Comments Total Bilirubin (test code = 1975-2) 0.4 0.2-1.2 [facility] CenterAspartate Amino Transf (AST/SGOT) 2018-01-07 05:31:00* Test Item Value Reference Range Interpretation Comments Aspartate Amino Transf (AST/SGOT) (test code = Aspartate Amino Transf (AST/SGOT)) 23 5-34 [facility] CenterAlanine Aminotransferase (ALT/SGPT) 2018-01-07 05:31:00* Test Item Value Reference Range Interpretation Comments Alanine Aminotransferase (ALT/SGPT) (test code = 1742-6) 9 0-55 [facility] CenterTotal Gejzhey5209-07-54 05:31:00* Test Item Value Reference Range Interpretation Comments Total Protein (test code = 2885-2) 5.1 6.5-8.1 L [facility] CenterAlbumin2018-04-22 05:31:00* Test Item Value Reference Range Interpretation Comments Albumin (test code = 1751-7) 2.6 3.5-5.0 L [facility] CenterGlobulin2018-04-22 05:31:00* Test Item Value Reference Range Interpretation Comments Globulin (test code = 26605-5) 2.5 2.3-3.5 [facility] CenterAlbumin/Globulin Dmzie4338-70-77 05:31:00 * Test Item Value Reference Range Interpretation Comments Albumin/Globulin Ratio (test code = 1759-0) 1.0 0.8-2.0 [facility] CenterAlkaline Wtzvltrmwkp7305-65-19 05:31:00* Test Item Value Reference Range Interpretation Comments Alkaline Phosphatase (test code = 6768-6) 58 40-150 [facility] CenterUrine OIW1932-33-57 23:48:00* Test Item Value Reference Range Interpretation Comments Urine WBC (test code = 5821-4) 0-5 0-5 [facility] CenterU[facility] KVY3338-33-62 23:48:00* Test Item Value Reference Range Interpretation Comments Urine RBC (test code = 87830-1) 6-10 0-5 H [facility] CenterUrine Tfcqrysf2492-28-42 23:48:00* Test Item Value Reference Range Interpretation Comments Urine Bacteria (test code = 61837-7) NONE NONE [facility] CenterUrine Epithelial Wzqkn1012-30-31 23:48:00 * Test Item Value Reference Range Interpretation Comments Urine Epithelial Cells (test code = 19688-7) RARE NONE [facility] CenterUrine Hrvfw9878-70-53 23:37:00* Test Item Value Reference Range Interpretation Comments Urine Color (test code = 5778-6) YELLOW YELLOW [facility] CenterUrine Qkrequs8777-69-47 23:37:00* Test Item Value Reference Range Interpretation Comments Urine Clarity (test code = 57131-2) CLEAR CLEAR [facility] CenterUrine Specific Lyirmue2311-08-35 23:37:00 * Test Item Value Reference Range Interpretation Comments Urine Specific [place] (test code = 5811-5) 1.015 1.010-1.02 5 [facility] CenterUrine nN4244-54-07 23:37:00* Test Item Value Reference Range Interpretation Comments Urine pH (test code = 36629-7) 7 5-7 [facility] CenterU[facility] Leukocyte Dxnkhstm7650-01-51 23:37:00* Test Item Value Reference Range Interpretation Comments Urine Leukocyte Esterase (test code = 5799-2) NEGATIVE NEGATIVE [facility] CenterU[facility] Luorahp6406-64-94 23:37:00* Test Item Value Reference Range Interpretation Comments Urine Nitrite (test code = 85316-0) NEGATIVE NEGATIVE [facility] CenterU[facility] Iledzyt4059-18-35 23:37:00* Test Item Value Reference Range Interpretation Comments Urine Protein (test code = 5804-0) 1+ NEGATIVE H [facility] CenterUrine Glucose (UA)2018-01-05 23:37:00* Test Item Value Reference Range Interpretation Comments Urine Glucose (UA) (test code = 2349-9) NEGATIVE NEGATIVE [facility] CenterUrine Sltwdgv0441-32-09 23:37:00* Test Item Value Reference Range Interpretation Comments Urine Ketones (test code = 59042-6) 1+ NEGATIVE H [facility] CenterUrine Ljvlcaeptind4959-47-04 23:37:00* Test Item Value Reference Range Interpretation Comments Urine Urobilinogen (test code = 92928-0) 0.2 0.2-1 [facility] CenterU[facility] Dbisfvlna1024-51-70 23:37:00* Test Item Value Reference Range Interpretation Comments Urine Bilirubin (test code = 1978-6) NEGATIVE NEGATIVE [facility] CenterU[facility] Euloi5512-12-94 23:37:00* Test Item Value Reference Range Interpretation Comments Urine Blood (test code = 89026-0) TRACE NEGATIVE H [facility] CenterUrine Opiates Qxvwef0745-79-83 18:58:00* Test Item Value Reference Range Interpretation Comments Urine Opiates Screen (test code = 32318-8) NEGATIVE NEGATIVE [facility] CenterU[facility] Barbiturates Xofdwc1583-04-53 18:58:00* Test Item Value Reference Range Interpretation Comments Urine Barbiturates Screen (test code = 825536426) NEGATIVE NEGA TIVE [facility] CenterU[facility] Phencyclidine Cmxsxv1636-02-72 18:58:00* Test Item Value Reference Range Interpretation Comments Urine Phencyclidine Screen (test code = 65211-9) NEGATIVE NEGAT ASHLEY [facility] CenterUrine Amphetamines Ayeeaw4906-87-79 18:58:00* Test Item Value Reference Range Interpretation Comments Urine Amphetamines Screen (test code = 50172-3) NEGATIVE NEGATI VE [facility] CenterU[facility] Methamphetamines Dtwgtr2177-08-37 18:58:00* Test Item Value Reference Range Interpretation Comments Urine Methamphetamines Screen (test code = Urine Metha mphetamines Screen) NEGATIVE NEGATIVE [facility] CenterU[facility] Benzodiazepines Zlfqga9846-01-21 18:58:00* Test Item Value Reference Range Interpretation Comments Urine Benzodiazepines Screen (test code = 43156-8) NEGATIVE NEG ATIVE [facility] CenterU[facility] Cocaine Rgamty8731-36-02 18:58:00* Test Item Value Reference Range Interpretation Comments Urine Cocaine Screen (test code = 3398-5) NEGATIVE NEGATIVE [facility] CenterUrine Cannabinoids Vkqbsi9523-84-64 18:58:00* Test Item Value Reference Range Interpretation Comments Urine Cannabinoids Screen (test code = 52442-9) NEGATIVE NEGATI VE THESE RESULTS ARE FOR MEDICAL TREATMENT ONLYTHIS REPORT CONTAINS UNCONFIR MED SCREENING RESULTS*POSITIVE RESULTS WILL BE CONFIRMED BY REFERENCE LAB UPON R EQUEST CUT-OFFDRUG CLASS CONCENTRATION ng/mLAmphetamines 1000Methamphetamines 1000Cocaine 300Opiate 300Phencyc lidine 25Cannabinoid 50Barbiturates 300Benzodiazepine 300Methadone 300[facility] CenterUrine Methadone Olwngn8218-18-03 18:58:00* Test Item Value Reference Range Interpretation Comments Urine Methadone Screen (test code = 01948-4) NEGATIVE NEGATIVE THESE RESULTS ARE FOR MEDICAL TREATMENT ONLYTHIS REPORT CONTAINS UNCONFIR MED SCREENING RESULTS*POSITIVE RESULTS WILL BE CONFIRMED BY REFERENCE LAB UPON R EQUEST CUT-OFFDRUG CLASS CONCENTRATION ng/mLAmphetamines 1000Methamphetamines 1000Cocaine Metabolite 300Opiate 300Phencyc lidine 25Cannabinoid 50Barbiturates 300Benzodiazepine 300Methadone 300[facility] CenterUrine Opiates Nckoiq3704-80-75 18:58:00* Test Item Value Reference Range Interpretation Comments Urine Opiates Screen (test code = 18425-0) NEGATIVE NEGATIVE [facility] CenterU[facility] Barbiturates Lthsre6528-98-18 18:58:00* Test Item Value Reference Range Interpretation Comments Urine Barbiturates Screen (test code = 866224241) NEGATIVE NEGA TIVE [facility] CenterU[facility] Phencyclidine Bcgjpr3127-52-62 18:58:00* Test Item Value Reference Range Interpretation Comments Urine Phencyclidine Screen (test code = 46539-5) NEGATIVE NEGAT ASHLEY [facility] CenterUrine Amphetamines Gsgvcf1694-08-87 18:58:00* Test Item Value Reference Range Interpretation Comments Urine Amphetamines Screen (test code = 16935-1) NEGATIVE NEGATI VE [facility] CenterU[facility] Methamphetamines Khfpvu1110-92-50 18:58:00* Test Item Value Reference Range Interpretation Comments Urine Methamphetamines Screen (test code = Urine Metha mphetamines Screen) NEGATIVE NEGATIVE [facility] CenterU[facility] Benzodiazepines Qsahbt1252-11-99 18:58:00* Test Item Value Reference Range Interpretation Comments Urine Benzodiazepines Screen (test code = 28495-0) NEGATIVE NEG ATIVE [facility] CenterU[facility] Cocaine Vbqxfx3773-48-22 18:58:00* Test Item Value Reference Range Interpretation Comments Urine Cocaine Screen (test code = 3398-5) NEGATIVE NEGATIVE [facility] CenterU[facility] Cannabinoids Beanth6878-21-09 18:58:00* Test Item Value Reference Range Interpretation Comments Urine Cannabinoids Screen (test code = 74631-4) NEGATIVE NEGATI VE THESE RESULTS ARE FOR MEDICAL TREATMENT ONLYTHIS REPORT CONTAINS UNCONFIR MED SCREENING RESULTS*POSITIVE RESULTS WILL BE CONFIRMED BY REFERENCE LAB UPON R EQUEST CUT-OFFDRUG CLASS CONCENTRATION ng/mLAmphetamines 1000Methamphetamines 1000Cocaine 300Opiate 300Phencyc lidine 25Cannabinoid 50Barbiturates 300Benzodiazepine 300Methadone 300[facility] CenterUrine Methadone Vfsbel3465-95-82 18:58:00* Test Item Value Reference Range Interpretation Comments Urine Methadone Screen (test code = 83404-8) NEGATIVE NEGATIVE THESE RESULTS ARE FOR MEDICAL TREATMENT ONLYTHIS REPORT CONTAINS UNCONFIR MED SCREENING RESULTS*POSITIVE RESULTS WILL BE CONFIRMED BY REFERENCE LAB UPON R EQUEST CUT-OFFDRUG CLASS CONCENTRATION ng/mLAmphetamines 1000Methamphetamines 1000Cocaine Metabolite 300Opiate 300Phencyc lidine 25Cannabinoid 50Barbiturates 300Benzodiazepine 300Methadone 300[facility] Gjdpsavcr1305-12-98 18:33:00* Test Item Value Reference Range Interpretation Comments Free Thyroxine (test code = 3024-7) 1.12 0.9-1.8 [facility] Mcxzaqwkw4488-18-44 18:33:00* Test Item Value Reference Range Interpretation Comments Free Thyroxine (test code = 3024-7) 1.12 0.9-1.8 [facility] CenterU[facility] Random Hilfgz5201-75-29 18:30:00* Test Item Value Reference Range Interpretation Comments Urine Random Sodium (test code = 2955-3) 65 [facility] CenterU[facility] Wnmmbtsyvr8664-04-50 18:30:00* Test Item Value Reference Range Interpretation Comments Urine Creatinine (test code = 2161-8) 12.40 47-110 L [facility] CenterU[facility] Random Sfgjku5798-90-52 18:30:00* Test Item Value Reference Range Interpretation Comments Urine Random Sodium (test code = 2955-3) 65 [facility] CenterUrine Vbseybnowc7480-59-35 18:30:00* Test Item Value Reference Range Interpretation Comments Urine Creatinine (test code = 2161-8) 12.40 47-110 L [facility] CenterUric Zibn9542-98-67 18:11:00* Test Item Value Reference Range Interpretation Comments Uric Acid (test code = 3084-1) 1.3 2.6-8.0 L [facility] CenterUric Rrrx3197-31-46 18:11:00* Test Item Value Reference Range Interpretation Comments Uric Acid (test code = 3084-1) 1.3 2.6-8.0 L [facility] CenterThyroid Stimulating Hormone (TSH) 2018-01-05 18:06:00* Test Item Value Reference Range Interpretation Comments Thyroid Stimulating Hormone (TSH) (test code = 78523-1) 1.921 0.350-4.940 [facility] CenterThyroid Stimulating Hormone (TSH) 2018-01-05 18:06:00* Test Item Value Reference Range Interpretation Comments Thyroid Stimulating Hormone (TSH) (test code = 50893-9) 1.921 0.350-4.940 [facility] Pirpikbbsk5801-83-23 17:44:00* Test Item Value Reference Range Interpretation Comments Serum Osmolality (test code = 44007-0) 229 278-305 L [facility] CenterTriglycerides Xbheu0407-92-17 17:44:00* Test Item Value Reference Range Interpretation Comments Triglycerides Level (test code = 2571-8) 74 0-149 [facility] Wetnhjhjvz5295-57-58 17:44:00* Test Item Value Reference Range Interpretation Comments Serum Osmolality (test code = 07701-5) 229 278-305 L [facility] CenterTriglycerides Lnozn1175-32-34 17:44:00* Test Item Value Reference Range Interpretation Comments Triglycerides Level (test code = 2571-8) 74 0-149 [facility] Arorpxo0749-22-19 17:16:00* Test Item Value Reference Range Interpretation Comments Bedside Glucose (test code = 10801-6) 141 70-120 H Meter ID: [id number] [facility] Glucose 2018-01-05 17:16:00* Test Item Value Reference Range Interpretation Comments Bedside Glucose (test code = 89135-7) 141 70-120 H Meter ID: [id number] [facility]Am[facility] Level 2018-01-05 02:12:00* Test Item Value Reference Range Interpretation Comments Amylase Level (test code = 1798-8) 59 25-125 [facility] CenterLipase2018-04-20 02:12:00* Test Item Value Reference Range Interpretation Comments Lipase (test code = 3040-3) 54 8-78 [facility] CenterAmylase Xcsvd0394-94-99 02:12:00* Test Item Value Reference Range Interpretation Comments Amylase Level (test code = 1798-8) 59 25-125 [facility] CenterLipase2018-04-20 02:12:00* Test Item Value Reference Range Interpretation Comments Lipase (test code = 3040-3) 54 8-78 [facility] CenterELECTROLYTES2018-04-06 11:00:0014.4 [facility] RdvakynLAQDXINZIUFC2287-50-00 11:00:0055[facility] HermannELECTROLYTES 2017-12-22 11:00:000.94[facility] EcwnbttLKPQPSQRMKYX7192-05-06 11:00:29881 [facility] DwhgstaWSKPBNDBKTJQ2574-05-99 11:00:0023[facility] HermannELECTROLYTES 2017-12-22 11:00:57901Tkzjlxgo VvwwozhKQGGBNIUKCKT9011-83-69 11:00:004.4[facility] SaobpxaRLZZERVMXOZP6478-36-53 11:00:0018[facility] BwzkpuuLONGAADFFZPF0753-39-49 11:00:34973Zgatazbx ImyuygsYJMXWHGBIGDE2303-12-67 11:00:008.9[facility] WVXPOHUJDK3420-41-36 11:00:0065.3[facility] AtffwrpVCZXBFRWIS9384-43-15 11:00:00 23.6[facility] LwuacquFBBCTLWAJB5176-54-83 11:00:007.6[facility] HermannHEMATOLOGY 2017-12-22 11:00:003.0[facility] SlvedpeLXWNOOCVFZ8266-35-87 11:00:000.3[facility] YhuwkesBMGTUJTFJP3276-94-75 11:00:000.7[facility] EyzwnztEUPANTCQNZ6993-89-38 11:00:002.2[facility] EggclkbGEDLXQDGMH9447-86-50 11:00:000.5[facility] VHYDGEXZHW8784-80-56 11:00:006.0[facility] CwkipjvVNQKJMPBYY2922-08-92 11:00:006.7 [facility] PsjbibtYAUKIGNXQL4341-61-58 11:00:0013.4[facility] HermannHEMATOLOGY 2017-12-22 11:00:75891Tjtbhryg ArffkajIENMKVEBXP5819-79-21 11:00:009.1[facility] KocbeqlKHQMQIUPIP3968-47-99 11:00:004.34[facility] HhbiixwVGSSYRSWCO4938-75-80 11:00:0012.9[facility] KzcskynISPZWZODMH5950-34-15 11:00:0038.1[facility] IOAAMLJPZK4923-93-51 11:00:0087.7[facility] EzawdonBCPIWISRGB9361-96-09 11:00:00* Test Item Value Reference Range Interpretation Comments MCH (test code = MCH) 29.7 pg 27.0-31.0 [facility] EwzvmpkUHQKDEXCRW2932-45-84 11:00:0033.8[facility] HermannCHEM PANEL 2017-12-19 12:18:0083[facility] HermannCHEM FHCSK1447-15-98 12:18:0012.4[facility] HermannCHEM EABJT7769-72-73 12:18:0051[facility] HermannCHEM XXCGL5553-12-21 12:18:03355Mmxanxls HermannCHEM UUCAR1079-28-84 12:18:001.01[facility] HermannCHEM ETCKR8715-80-07 12:18:004.4[facility] HermannCHEM VKQVQ1678-05-52 12:18:11044 [facility] HermannCHEM YRTOI8569-59-13 12:18:0022[facility] HermannCHEM PANEL 2017-12-19 12:18:008.8[facility] HermannCHEM IDFHN6583-96-61 12:18:0019[facility] HermannBLOOD BANK ESRWESN7495-59-44 05:08:00Negative (12/18/17 12:08 AM)[facility] HermannCHEM KRKLT8544-99-64 05:08:002.3[facility] HermannCHEM VWRUL4673-33-47 05:08:0082[facility] HermannCHEM HRMNS3473-52-32 05:08:0021[facility] HermannCHEM BHAND3690-67-39 05:08:18072Jcxzoihb HermannCHEM FUWCP6752-56-63 05:08:001.37 [facility] HermannCHEM RATMG6841-60-23 05:08:0030[facility] HermannCHEM PANEL 2017-12-18 05:08:004.4[facility] HermannCHEM KUSNA0948-86-37 05:08:87461Kxbxmksh HermannCHEM MCDPW6035-68-08 05:08:0035[facility] HermannCHEM RYNFK2724-51-79 05:08:008.2[facility] HermannCHEM ZVHKF0539-47-06 05:08:0013.4[facility] HermannCHEM MWEKQ3837-32-05 05:08:003.1[facility] HutexwyXKQJBAKIOA3016-67-71 05:08:00* Test Item Value Reference Range Interpretation Comments PTT (test code = PTT) 38.4 s 22.9-35.8 [facility] GfqmhthIWXVEPECSP2336-91-91 05:08:00* Test Item Value Reference Range Interpretation Comments INR (test code = INR) 1.01 1 0.85-1.17 [facility] DxqvfmaGRVYBGMNMZ8613-69-73 05:08:00* Test Item Value Reference Range Interpretation Comments PT (test code = PT) 13.3 s 12.0-14.7 [facility] MwfgmzdJSHEBFMTBU1723-74-46 05:08:009.5[facility] HermannHEMATOLOGY 2017-12-18 05:08:003.87[facility] KnqcqujQOMUWBDKXF3833-76-07 05:08:29451Phoxlmkb MbgbxicPJJBWUQHBM3301-92-54 05:08:007.0[facility] NqwqlbwRDCUJVKXCG3939-87-43 05:08:0033.8[facility] SkzhgolFSHNJMXMNO7559-02-74 05:08:0013.3[facility] ISREMXOEPS8337-02-02 05:08:0011.5[facility] ZbtwohjQTGXCEYSHK6402-17-00 05:08:00 34.1[facility] QskgetiFPMIAQWJLA4347-43-42 05:08:0088.1[facility] HermannHEMATOLOGY 2017-12-18 05:08:00* Test Item Value Reference Range Interpretation Comments MCH (test code = MCH) 29.7 pg 27.0-31.0 [facility] HuimmymFEHVIEYXNG1816-27-16 05:08:0067.2[facility] HermannHEMATOLOGY 2017-12-18 05:08:0019.4[facility] BvlxxgzMCCYFYXJFR2863-39-25 05:08:007.9[facility] OsjnjakASNAOBWEID1216-05-25 05:08:004.6[facility] KvadopoVHAJOFACZQ6222-14-07 05:08:000.9[facility] BtvuzdwPNTAFLYIDZ9042-16-42 05:08:006.4[facility] GASMWKJFIC1602-51-16 05:08:001.8[facility] CuosyzcAUTMFTKGOI2003-31-74 05:08:000.4 [facility] VzchcrlQWCKJSQNXB6508-33-32 05:08:000.8[facility] HermannHEMATOLOGY 2017-12-18 05:08:000.1[facility] HermannPARATHYROID PYISPVC0156-30-01 05:08:001.06 [facility] HermannPARATHYROID DGKGMSD8076-06-12 05:08:001.06[facility] HermannBLOOD BANK TMLGDKU4186-00-00 15:15:00Product available (12/17/17 10:15 AM)[facility] HermannBLOOD BANK VCKIOOK4654-82-29 15:15:00Product available (12/17/17 10:15 AM) [facility]annURINE AND BQVNV5709-27-16 15:14:00Negative (12/17/17 10:14 AM) [facility]annURINE AND RFGKX3289-48-22 15:14:00Negative *NA*(12/17/17 10:14 AM) [facility]annUR[facility] AND BYZVH4135-51-67 15:14:00Yellow *NA*(12/17/17 10:14 AM) [facility]UR[facility] AND DEXVH3670-20-42 15:14:00<1[facility]annURINE AND UQMOB0320-67-52 15:14:00<1[facility]annURINE AND CTDOQ9177-82-71 15:14:00 Negative (12/17/17 10:14 AM)[facility]annURINE AND CEPZH5966-06-66 15:14:00 Negative (12/17/17 10:14 AM)[facility]annURINE AND GTXIN5628-64-20 15:14:00* Test Item Value Reference Range Interpretation Comments UA pH (test code = UA pH) 7.0 1 5.0-8.0 [facility]annURINE AND DVCFP1135-95-95 15:14:00* Test Item Value Reference Range Interpretation Comments UA Spec Grav (test code = UA Spec Grav) 1.008 1 [facility]annUR[facility] AND EIQNW2467-28-40 15:14:00Clear (12/17/17 10:14 AM) [facility] MvhzrynHYTCBBJCML3906-75-96 14:15:000.38[facility] HermannHEMATOLOGY 2017-12-16 10:12:001.0[facility] NpevotdXUPLWURVYM3229-23-84 10:12:000.8[facility] GdfzwrhNANYALXNOQ8141-46-82 10:12:005.2[facility] VrdeqyuPEGYEWABNK1081-89-19 10:12:001.6[facility] TwoxdkoQOVAKFYARW6797-75-30 10:12:004.9[facility] NITINYODHE7347-86-70 10:12:000.4[facility] LmfeuevJNGWXPPEXY5948-48-76 10:12:000.1 [facility] EhxsurvUDNCHPVRNC8681-72-95 10:12:0011.7[facility] HermannHEMATOLOGY 2017-12-16 10:12:0062.9[facility] LexopmlDQMKZFCGMH8939-18-31 10:12:0019.7[facility] CqminbzYGMEADXKLH7384-72-15 10:12:008.2[facility] VklnfesQIYYGCGKSX1224-86-97 10:12:003.60[facility] VjksfnoKLCXTXATQQ0564-63-81 10:12:00* Test Item Value Reference Range Interpretation Comments MCH (test code = MCH) 30.0 pg 27.0-31.0 [facility] NlvyxfxDCTYHFNEZC3904-73-83 10:12:0010.8[facility] HermannHEMATOLOGY 2017-12-16 10:12:0031.3[facility] KcqrujhEXXUSERNYV7021-12-16 10:12:0013.3[facility] XghxqxvWTPJZZEMST7533-38-68 10:12:70953Mlycgjan NswecuaDRYFESHIVA9119-76-19 10:12:0034.5[facility] KarkzgbALCGOEKWWX1862-85-70 10:12:0087.1[facility] BQOVEHJFFN8222-04-12 10:12:007.2[facility] GpetsxxAIOVIEZTWI3781-04-93 19:02:00 12.6[facility] HermannBLOOD BANK AYZQQFG3884-56-77 19:01:00Negative (12/15/17 2:01 PM)[facility] HermannCHEM ABXOI4774-26-68 19:01:001.0[facility] HermannHEMATOLOGY 2017-12-15 19:01:000.1[facility] HermannCT BRAIN WO [place] [address] Patient Name: FRANK PERRY MR #: [id number] : 1930 Age/Sex: 87/F Req #: [id number] Adm Physician: Ordered by: LILIANA GARCIA MD Report #: [id number] Location: ER Room/Bed: Procedure: [id number] CT/CT BRAIN WO Exam Date: 01/28 Exam [...] MD on 01/28/18110 Transcribed By: ROLO on 01/28/18110 COPY TO: LILIANA GARCIA MD CHEST SINGLE (PORTABLE) [place] [address] Patient Name: FRANK PERRY MR #: [id number] : Age/Sex: 87/F Req #: [id number] Adm Physician: Ordered by: LILIANA GARCIA MD Report #: [id number] Location: ER Room/Bed: Procedure: [id number] DX/CHEST SINGLE (PORTABLE) Exam Date: 01/28/18 Exam [...] LILIANA GARCIA MD BARIUM ENEMA W/AIR C [place] [address] Patient Name: FRANK PERRY MR #: [id number] : 1930 Age/Sex: 87/F Req #: [id number] Adm Physician: Ordered by: PIA MCCANN MD Report #: [id number] Location: DX Room/Bed: Procedure: [id number] DX/BARIUM ENEMA W/AIR C Exam Date : [...] bilateral decubitus images were obtained. 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 There [...] HIGH MD 111 Transcribed By: MELISSA on 01/26/181111 COPY TO: PIA MCCANN MD [facility] (PORTABLE) [place] [address] Patient Name: FRANK PERRY MR #: [id number] : 1930 Age/Sex: 87/F Req #: [id number] Adm Physician: CALEB ALATORRE MD Ordered by: MICHELET RECIO MD Report #: [id number] Location: ICU Room/Bed: ICU 192- Procedure: [id number] DX/ CHEST SINGLE (PORTABLE) Exam Date: 01/06/18 [...] JESSE MOSCOSO MD Transcribed By: ROLO on 01/06/18650 COPY TO: MICHELET RECIO MD, ABI CT BRAIN [place] [address] Patient Name: FRANK PERRY MR #: [id number] : 1930 Age/Sex: 87/F Req #: [id number] Adm Physician: CALEB HINES MD Ordered by: CALEB ALATORRE MD Report #: [id number] Locati on: ICU Room/Bed: ICU 192- Procedure: [id number] CT/C T BRAIN WO Exam Date: 01/05/18 [...] TO: NANCY ALATORRE MD CT ABDOMEN/PELVIS W [place] [address] Patient Name: FRANK PERRY MR #: [id number] : 1930 Age/Sex: 87/F Req #: [id number] Adm Physician: Ordered by: ELIZABETH JAMES MD Report #: [id number] Location: ER Room/Bed: Procedure: [id number] CT/CT ABDOMEN/PELVIS W E xam Date: Exam [...] JAMES MD ABDOMEN ACUTE SERIES W/PA CXR [facility] [address] Patient Name: FRANK PERRY MR #: [id number] : 1930 Age/Sex: 87/F Req #: [id number] Adm Physician: Ordered by: ELIZABETH JAMES MD Report #: [id number] Location: ER Room/Bed: Procedure: [id number] DX/ABDOMEN ACUTE SERIES W /PA CXR Exam [...]
[2020-06-03 15:20] LABS: BASOPHILS # (AUTO) 0.1 (0.0-0.1); BASOPHILS % 0.7 % (0.0-1.0); EOSINOPHILS # (AUTO) 0.7 (0.0-0.4); EOSINOPHILS % 6.2 % (0.0-6.0); HEMATOCRIT 41.4 % (34.2-44.1); LYMPHOCYTES % 8.5 % (18.0-39.1); MEAN CORPUSCULAR HEMOGLOBIN 30.7 pg (28-32); MEAN CORPUSCULAR HGB CONC 33.8 g/dL (31-35); MEAN CORPUSCULAR VOLUME 90.8 fL (81-99); MONOCYTES # (AUTO) 0.7 (0.2-0.8); MONOCYTES % 5.4 % (4.4-11.3); NEUTROPHILS # (AUTO) 9.4 (2.1-6.9); NEUTROPHILS % 78.2 % (38.7-80.0); PLATELET COUNT 242 x10e3/uL (140-360); RED BLOOD COUNT 4.56 x10e6/uL (3.6-5.1); RED CELL DISTRIBUTION WIDTH 13.2 % (11.7-14.4)
--- NOTE | 2020-06-03 15:36 | Emergency Department Note ---
History of Present Illnes History of Present Illness Chief Complaint: General Medicine Complaints History of Present Illness This is a 89 year old female who presents for some mild confusion today. Her son patient was a normal self yesterday and today seems that she is somewhat confused off. Patient is alert and oriented 3 and is able to answer questions appropriately. She denies symptoms this time. She was recently seen for similar complaints but the son states that it was much worse at that time. At that time she is noted to be hyponatremic. Historian: Patient, Family Member Arrival Mode: Car Orange Picking Supervisor Required: No Onset (how long ago): day(s) Location: Brain Quality: Confusion Radiation: Reports non-radiation Severity: mild Onset quality: gradual Duration (how long): day(s) (1) Timing of current episode: constant Progression: unchanged Chronicity: recurrent Context: Denies recent illness, Denies recent surgery Relieving factors: none Exacerbating factors: none Associated symptoms: Reports denies other symptoms Treatments prior to arrival: none Past Medical/Family History Physician Review I have reviewed the patient's past medical and family history. Any updates have been documented here. Past Medical History Recent Fever: No Clinical Suspicion of Infectio: No New/Unexplained Change in Ment: No Past Medical History: Hypertension, GERD, Hyperlipedemia, Osteoarthritis Other Medical History: DIVERTICULITIS Other Surgery: LASIK SKIN GRAFTS Social History Smoking Cessation: Never Smoker Counseling Performed: No Alcohol Use: None Any Illegal Drug Use: No Other Last Tetanus: UTD Any Pre-Existing Lines (PICC,: No Review of Systems Review of Systems Constitutional: Reports no symptoms EENTM: Reports no symptoms Cardiovascular: Reports no symptoms Respiratory: Reports no symptoms Gastrointestinal: Reports no symptoms Genitourinary: Reports no symptoms Musculoskeletal: Reports no symptoms Integumentary: Reports no symptoms Neurological: Reports as per HPI, Reports other (Mild confusion) Psychological: Reports no symptoms Endocrine: Reports no symptoms Hematological/Lymphatic: Reports no symptoms Physical Exam Related Data Allergies: Coded Allergies: gabapentin (Verified Allergy, Unknown, memory loss, 10/18/19) Triage Vital Signs Vital Signs Date Time Temp Pulse Resp B/P (MAP) Pulse Ox O2 Delivery O2 Flow Rate FiO2 06/03/20 15:18 97.6 76 14 165/67 97 Room Air Vital signs reviewed: Yes Physical Exam CONSTITUTIONAL Constitutional: Present well-developed, Present well-nourished HENT HENT: Present normocephalic, Present atraumatic, Present oropharynx clear/moist, Present nose normal HENT L/R: Present left ext ear normal, Present right ext ear normal EYES Eyes: Reports PERRL, Reports conjunctivae normal NECK Neck: Present ROM normal PULMONARY Pulmonary: Present effort normal, Present breath sounds normal CARDIOVASCULAR Cardiovascular: Present regular rhythm, Present heart sounds normal, Present capillary refill normal, Present normal rate GASTROINTESTINAL Abdominal: Present soft, Present nontender, Present bowel sounds normal GENITOURINARY Genitourinary: Present exam deferred SKIN Skin: Present warm, Present dry MUSCULOSKELETAL Musculoskeletal: Present ROM normal NEUROLOGICAL Neurological: Present alert, Present oriented x 3, Present no gross motor or sensory deficits; Absent cranial nerve deficit, Absent sensory deficit, Absent weakness PSYCHOLOGICAL Psychological: Present mood/affect normal, Present judgement normal Results Laboratory Result Diagram: 06/03/20 1510 Laboratory Laboratory Tests Test 06/03/20 15:10 White Blood Count 12.01 x10e3/uL (4.8-10.8) Red Blood Count 4.56 x10e6/uL (3.6-5.1) Hemoglobin 14.0 g/dL (12.0-16.0) Hematocrit 41.4 % (34.2-44.1) Mean Corpuscular Volume 90.8 fL (81-99) Mean Corpuscular Hemoglobin 30.7 pg (28-32) Mean Corpuscular Hemoglobin Concent 33.8 g/dL (31-35) Red Cell Distribution Width 13.2 % (11.7-14.4) Platelet Count 242 x10e3/uL (140-360) Neutrophils (%) (Auto) 78.2 % (38.7-80.0) Lymphocytes (%) (Auto) 8.5 % (18.0-39.1) Monocytes (%) (Auto) 5.4 % (4.4-11.3) Eosinophils (%) (Auto) 6.2 % (0.0-6.0) Basophils (%) (Auto) 0.7 % (0.0-1.0) Neutrophils # (Auto) 9.4 (2.1-6.9) Lymphocytes # (Auto) 1.0 (1.0-3.2) Monocytes # (Auto) 0.7 (0.2-0.8) Eosinophils # (Auto) 0.7 (0.0-0.4) Basophils # (Auto) 0.1 (0.0-0.1) Absolute Immature Granulocyte (auto 0.12 x10e3/uL (0-0.1) Lab results reviewed: Yes Imaging Imaging results reviewed: Yes Procedures 12 Lead ECG Interpretation ECG Interpretation : Orange Picking Supervisor: Interpreted by ED physician Date: Jun 03, 2020 Rhythm: sinus rhythm Rate: normal QRS axis: normal ST segments normal: Yes T waves normal: Yes Clinical Impression: non-specific ECG Assessment & Plan Medical Decision Making MDM 89-year-old female presents for mild confusion. No focal neurologic deficits, cranial nerves II through XII are intact, she is alert and oriented 3. Her family members concerned over hyponatremia. Workup shows benign labs, no significant hyponatremia. Patient then states that she has abdominal pain and CT abdomen and pelvis was obtained which is largely unchanged from her prior. Doubt emergent process at this time. I discussed results patient as well as expected disease time course and management. They will follow up with their primary care provider or return to the emergency department for new or worsening symptoms. Patient's appropriate for discharge. Part of this note was dictated with Timothy and is subject to recognition errors. Reassessment Reassessment time: 17:33 Reassessment Well appearing, NAD Assessment & Plan Final Impression: (1) Confusion Depart Disposition: HOME, SELF-CARE Last Vital Signs Date Time Temp Pulse Resp B/P (MAP) Pulse Ox O2 Delivery O2 Flow Rate FiO2 06/03/20 15:18 97.6 76 14 165/67 97 Room Air Home Meds Active Scripts Sodium Chloride (SODIUM CHLORIDE) 1 Gm Tab, 2 GM PO TID for 14 Days, #90 TAB 0 Refills Prov:ALISIA AUSTIN [employer] SCI[employer] PROFESSOR 04/25/20 Reported Medications Propafenone Hcl (PROPAFENONE HCL) 150 Mg Tab, 150 MG PO BID 04/23/20 Gabapentin (GABAPENTIN) 100 Mg Capsule, 100 MG PO BID PRN for MILD PAIN (1-3) 04/23/20 Dicyclomine Hcl (DICYCLOMINE HCL) 10 Mg Capsule, 10 MG PO BID 04/23/20 Celecoxib* (CELEBREX*) 100 Mg Capsule, 200 MG PO BID, #30 CAP 04/23/20 Pantoprazole Sodium (PROTONIX) 20 Mg Tablet.dr, 40 MG PO DAILY, #30 TAB 04/23/20 Lorazepam (LORAZEPAM) 2 Mg/1 Ml Oral.conc, 0.5 MG PO PRN for anxiety Take one to two tabs by mouth as needed. 11/30/19 Shark Liver Oil/[place] Butter (HEMORRHOIDAL SUPPOSITORIES) 1 Each Supp.rect, 1 SUPP RC PRN 06/05/19 Lidocaine (RECTICARE) 30 Gm Cream..g., 1 APPLIC TOP PRN 06/05/19 [Acetaminophen] (Tylenol) No Conflict Check, 1000 MG PO DAILY 06/05/19 Trenary-3 Fatty Acids/Fish Oil (FISH OIL 1,200 MG SOFTGEL) 1 Each Capsule, 2400 MG PO DAILY 06/05/19 Calcium Carbonate/Vitamin D3 (CALTRATE-600 WITH VIT D TAB) 1 Each Tablet, 1200 MG PO DAILY 06/05/19 Aspirin (ASPIR 81) 81 Mg Tablet.dr, 81 MG PO DAILY 06/05/19 Hydrocortisone (PROCTOSOL-HC) 28.35 Gm Cream..g., 2.5 % RC TID 06/05/19 Amlodipine Besylate (AMLODIPINE BESYLATE) 2.5 Mg Tablet, 2.5 MG PO Q12H for HYPERTENSION 01/11/19 Acebutolol Hcl (ACEBUTOLOL HCL) 200 Mg Capsule, 200 MG PO BID, #30 CAP 01/28/18 MICHAEL CARO MD Jun 03, 2020 15:36
[2020-06-03 15:38] LABS: ALBUMIN 4.7 g/dL (3.5-5.0); ALBUMIN/GLOBULIN RATIO 1.4 (0.8-2.0); ANION GAP 15.5 mmol/L (8-16); CALCIUM 9.8 mg/dL (8.4-10.2); CREATININE, SERUM 1.04 mg/dL (0.57-1.11); POTASSIUM 4.5 mmol/L (3.5-5.1)
--- NOTE | 2020-06-03 15:50 | Diagnostic Imaging Report ---
EXAMINATION: Head CT HISTORY: 89-year-old female with difficulty finding words, weakness, unsteady COMPARISON: Head CT 04/22/2020 TECHNIQUE: Helical axial images of the head were obtained. Reformatted coronal and sagittal images from the axial data. Dose modulation, iterative reconstruction, and/or weight based adjustment of the mA/kV was utilized to reduce the radiation dose to as low as reasonably achievable. FINDINGS: Parenchyma: 1. No abnormal densities. 2. No mass or hemorrhage. No CT evidence of acute territorial vascular insult. Extra-axial spaces:No abnormal density. No extra-axial fluid collections Brain volume: Normal for age. Ventricles: No hydrocephalus or displacement. Arteries: No density suggestive of thrombus. Dural sinuses: No abnormal density. Foramen magnum: No mass, Chiari malformation, or basilar invagination. Sella: No obvious mass. Paranasal/mastoid sinuses: Imaged portions unremarkable. Skull/Scalp: No lytic or blastic lesions. No fractures. IMPRESSION: Normal head CT. Signed by: Dr. Aimee Graves M.D. on 06/03/2020 3:46 PM
[2020-06-03 15:55] LABS: BILIRUBIN,URINE NEGATIVE (NEGATIVE); CLARITY,URINE CLEAR (CLEAR); COLOR,URINE YELLOW (YELLOW); KETONES,URINE NEGATIVE (NEGATIVE); LEUKOCYTE ESTERASE ,URINE NEGATIVE (NEGATIVE); NITRITE,URINE NEGATIVE (NEGATIVE); PROTEIN,URINE DIPSTICK NEGATIVE (NEGATIVE); URINE UROBILINOGEN 0.2 mg/dL (0.2 - 1)
[2020-06-03 15:59] LABS: RBC,URINE 0-5 /HPF (0-5)
[2020-06-03] MEDS ORDERED: SODIUM CHLORIDE 0.9% 500ML 500 ML IV STA (16:31)
[2020-06-03] MEDS ORDERED: SODIUM CHLORIDE 0.9% 50ML 50 ML ONE (16:46)
[2020-06-03] MEDS ORDERED: IOPAMIDOL 370 MG/ML 200 ML INFUS..BTL INJ ONE (16:47)
--- NOTE | 2020-06-03 17:51 | Diagnostic Imaging Report ---
EXAMINATION: CT of the abdomen and pelvis with contrast. TECHNIQUE: Spiral CT images of the abdomen and pelvis were performed from the lung bases to the lesser trochanters after the intravenous administration of 100 cc of Isovue 370 and the oral administration of water. Coronal and sagittal reformatted images were obtained. COMPARISON: CT abdomen and pelvis without contrast 12/01/2019 CLINICAL HISTORY:Abdominal pain, low sodium levels DISCUSSION: ABDOMEN/PELVIS: LOWER THORAX:Stable bilateral lower lobe linear opacities consistent with scarring, and interstitial thickening. Atherosclerotic calcification of the thoracic aorta. Stable mild cardiomegaly HEPATOBILIARY: Stable 1.2 cm segment 7, 0.8 cm segment 4 and 0.6 cm segment 6 fluid density simple cysts (series 2, images 17, 20 and 30). Stable punctate calcified granuloma in segment 7 (series 2, image 12). No other focal lesions. No intra or extrahepatic biliary ductal dilation. GALLBLADDER: No radio-opaque stones or sludge. No wall thickening. SPLEEN: No splenomegaly. 1-2 mm hypodense lesions in the spleen (for example series 2, images 10, 11 and 6), which are too small to characterize PANCREAS: No focal masses or ductal dilatation. ADRENALS: No adrenal nodules. KIDNEYS/URETERS: No hydronephrosis, stones, or solid mass lesions. Bilateral extrarenal pelves. 0.6 cm hypodense lesion in the left superior to mid aspect (series 2, image 16), which is too small to characterize but likely represents a small cyst. PELVIC ORGANS/BLADDER: Bladder is moderately distended. No wall thickening or focal lesions. Uterus is unremarkable. No adnexal masses. PERITONEUM/RETROPERITONEUM: No free air or fluid. LYMPH NODES: No intra-abdominal, retroperitoneal, pelvic or inguinal lymphadenopathy. VESSELS: The celiac trunk,superior and inferior mesenteric and bilateral renal arteries are patent The portal, superior mesenteric and splenic veins are patent. Moderate atherosclerotic calcification of the abdominal aorta and iliac vessels. GI TRACT: Exam is partly limited by residual contrast in the large and distal small bowel from prior modified barium swallow. No bowel dilation or evidence of obstruction. No pericolonic inflammatory changes. Appendix is well identified and normal in caliber. Stomach is unremarkable. Extensive diverticulosis of the distal descending and sigmoid colon, without diverticulitis. BONES AND SOFT TISSUE: No aggressive lytic or suspicious multiple sclerotic lesions. Marked osteopenia. Multilevel degenerative disks in the lower thoracic and lumbar spine, worse at L3-L4, with fusion and resultant leftward curvature. Soft tissues are grossly unremarkable. IMPRESSION: 1. No acute abdominopelvic abnormalities. No bowel dilation or evidence of obstruction. 2. Stable hepatic simple cysts. Subcentimeter hypodense lesions in the spleen and left kidney are too small to characterize but may represent small cysts. 3. Moderate bladder distention, without focal lesion or wall thickening. Correlate for bladder outlet obstruction. 4. Descending and sigmoid colon diverticulosis without diverticulitis. Signed by: Dr. Boy Jose M.D. on 06/03/2020 5:48 PM
[2020-06-03 18:24] VITALS: BP 164/71
== END 2020-06-03 18:26 | disposition home or self-care (01) ==
LOC: ER 15:11
DX: R41.0 Disorientation, unspecified (principal); I10 Essential (primary) hypertension; E78.5 Hyperlipidemia, unspecified; K21.9 Gastro-esophageal reflux disease without esophagitis; Z87.19 Personal history of other diseases of the digestive system
CPT/HCPCS: 36415; 70450; 74177; 80053; 81001; 85025; 93005; 99284; J7040; Q9967

== ENCOUNTER 2020-08-20 09:48 | Emergency (ER) | payer MEDICARE ==
[~2020-08-20] VITALS: Ht 157.5 cm; Wt 50.3 kg
[2020-08-20] MEDS ORDERED: KETOROLAC TROMETHAMINE 30 MG/ML VIAL IM SCH (09:51)
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
--- OUTSIDE RECORDS SUMMARY | 2020-08-20 09:55 | XMS REPORT | Continuity of Care Document ---
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 Reference Range Interpretation Comments Urine Clarity (test code = 60836-5) [facility] by Test strip 2020-06-03 15:28:00* Test Item Value Reference Range Interpretation Comments Urine Specific Springer (test code = 5811-5) 1.025 1.010-1.02 5 [facility] pH measurement by automated test [id number] 15:28:00* Test Item Value Reference Range Interpretation Comments Urine pH (test code = 63389-8) 7.5 5-7 [facility] CampusUrine leukocyte esterase detection by vstbdtma0775-91-20 15:28:00* Test Item Value Reference Range Interpretation Comments Urine Leukocyte Esterase (test code = 5799-2) NEGATIVE NEGATIVE [facility] CampusUrine nitrite owjqmdpof1077-80-67 15:28:00* Test Item Value Reference Range Interpretation Comments Urine Nitrite (test code = 78247-3) NEGATIVE NEGATIVE [facility] protein measurement by test strip (mass/volume)2020-06-03 15:28:00* Test Item Value Reference Range Interpretation Comments Urine Protein (test code = 5804-0) NEGATIVE NEGATIVE [facility] CampusUrine glucose glbrdjmer6130-92-15 15:28:00* Test Item Value Reference Range Interpretation Comments Urine Glucose (UA) (test code = 2349-9) NEGATIVE NEGATIVE [facility] CampusUrine ketones detection by automated test dawzc2850-46-92 15:28:00* Test Item Value Reference Range Interpretation Comments Urine Ketones (test code = 27979-5) NEGATIVE NEGATIVE [facility] CampusUrine urobilinogen measurement by test strip (mass/volume)2020-06-03 15:28:00* Test Item Value Reference Range Interpretation Comments Urine Urobilinogen (test code = 24681-2) 0.2 0.2-1 [facility] CampusU[facility] total bilirubin measurement (mass/volume)2020-06-03 15:28:00* Test Item Value Reference Range Interpretation Comments Urine Bilirubin (test code = 1978-6) NEGATIVE NEGATIVE [facility] CampusUrine erythrocytes fsvyrxpts0460-61-38 15:28:00* Test Item Value Reference Range Interpretation Comments Urine Blood (test code = 20566-5) TRACE NEGATIVE [facility] CampusAutomated urine sediment leukocyte count by microscopy (number/high power field)2020-06-03 15:28:00* Test Item Value Reference Range Interpretation Comments Urine WBC (test code = 5821-4) NONE 0-5 [facility] CampusErythrocytes detection in urine sediment by light lpxxecljdr3191-48-55 15:28:00* Test Item Value Reference Range Interpretation Comments Urine RBC (test code = 47921-3) 0-5 0-5 [facility] CampusBacteria detection in urine sediment by light pdjrzvegwm9077-93-79 15:28:00* Test Item Value Reference Range Interpretation Comments Urine Bacteria (test code = 32851-6) NONE NONE [facility] CampusEpithelial cells detection in urine sediment by light tmiquqbmtt4381-01-98 15:28:00* Test Item Value Reference Range Interpretation Comments Urine Epithelial Cells (test code = 53571-5) NONE NONE [facility] CampusBlood leukocytes automated count (number/volume)2020-06-03 15:10:00* Test Item Value Reference Range Interpretation Comments White Blood Count (test code = 6690-2) 12.01 4.8-10.8 [facility] CampusBlood erythrocytes automated count (number/volume)2020-06-03 15:10:00* Test Item Value Reference Range Interpretation Comments Red Blood Count (test code = 789-8) 4.56 3.6-5.1 [facility] CampusBlood hemoglobin measurement (moles/volume)2020-06-03 15:10:00* Test Item Value Reference Range Interpretation Comments Hemoglobin (test code = 61293-2) 14.0 12.0-16.0 [facility] CampusAutomated blood hematocrit (volume fraction)2020-06-03 15:10:00* Test Item Value Reference Range Interpretation Comments Hematocrit (test code = 4544-3) 41.4 34.2-44.1 [facility] CampusAutomated erythrocyte mean corpuscular mdshbh9390-56-19 15:10:00* Test Item Value Reference Range Interpretation Comments Mean Corpuscular Volume (test code = 787-2) 90.8 81-99 [facility] CampusAutomated erythrocyte mean corpuscular hemoglobin (mass per erythrocyte)2020-06-03 15:10:00* Test Item Value Reference Range Interpretation Comments Mean Corpuscular Hemoglobin (test code = 785-6) 30.7 28-32 [facility] CampusAutomated erythrocyte mean corpuscular hemoglobin concentration measurement (mass/volume)2020-06-03 15:10:00* Test Item Value Reference Range Interpretation Comments Mean Corpuscular Hemoglobin Concent (test code = 786-4) 33.8 31-35 [facility] CampusRDW AzpJe-Zwy1214-32-16 15:10:00* Test Item Value Reference Range Interpretation Comments Red Cell Distribution Width (test code = 46463-6) 13.2 11.7 -14.4 [facility] CampusAutomated blood platelet count (count/volume)2020-06-03 15:10:00* Test Item Value Reference Range Interpretation Comments Platelet Count (test code = 777-3) 242 140-360 [facility] CampusAutomated blood segmented neutrophil count as percentage of total hrgeloxarf5496-73-06 15:10:00* Test Item Value Reference Range Interpretation Comments Neutrophils (%) (Auto) (test code = 29333-3) 78.2 38.7-80.0 [facility] CampusAutomated blood lymphocyte count as percentage ot total slxnonzjqv9343-16-81 15:10:00* Test Item Value Reference Range Interpretation Comments Lymphocytes (%) (Auto) (test code = 736-9) 8.5 18.0-39.1 [facility] CampusAutomated blood monocyte count as percentage of total kdrybezmsv4605-56-68 15:10:00* Test Item Value Reference Range Interpretation Comments Monocytes (%) (Auto) (test code = 5905-5) 5.4 4.4-11.3 [facility] CampusAutomated blood eosinophil count as percentage of total oecaelshue9996-33-32 15:10:00* Test Item Value Reference Range Interpretation Comments Eosinophils (%) (Auto) (test code = 713-8) 6.2 0.0-6.0 [facility] CampusAutomated blood basophil count as percentage of total rgcanavvpw2407-02-20 15:10:00* Test Item Value Reference Range Interpretation Comments Basophils (%) (Auto) (test code = 706-2) 0.7 0.0-1.0 [facility] CampusFluoroscopic procedure less than one hour qvadoxzg8065-82-22 15:10:00* Test Item Value Reference Range Interpretation Comments IM GRANULOCYTES % (test code = IM GRANULOCYTES %) 1.0 0.0- 1.0 [facility] CampusAutomated blood neutrophil count 2020-06-03 15:10:00* Test Item Value Reference Range Interpretation Comments Neutrophils # (Auto) (test code = 751-8) 9.4 2.1-6.9 [facility] CampusBlood lymphocytes count (number/volume) 2020-06-03 15:10:00* Test Item Value Reference Range Interpretation Comments Lymphocytes # (Auto) (test code = 82181-2) 1.0 1.0-3.2 [facility] CampusBlood monocytes automated count (number/volume)2020-06-03 15:10:00* Test Item Value Reference Range Interpretation Comments Monocytes # (Auto) (test code = 742-7) 0.7 0.2-0.8 [facility] CampusAutomated blood eosinophil count 2020-06-03 15:10:00* Test Item Value Reference Range Interpretation Comments Eosinophils # (Auto) (test code = 711-2) 0.7 0.0-0.4 [facility] CampusAutomated blood basophil count (count/volume)2020-06-03 15:10:00* Test Item Value Reference Range Interpretation Comments Basophils # (Auto) (test code = 704-7) 0.1 0.0-0.1 [facility] CampusFluoroscopic procedure less than one hour qfuiysug1049-48-85 15:10:00* Test Item Value Reference Range Interpretation Comments Absolute Immature Granulocyte (auto (inocente t code = Absolute Immature Granulocyte (auto) 0.12 0-0.1 [facility] sodium measurement (moles/volume)2020-06-03 15:10:00* Test Item Value Reference Range Interpretation Comments Sodium Level (test code = 2951-2) 133 136-145 [facility] potassium measurement (moles/volume)2020-06-03 15:10:00* Test Item Value Reference Range Interpretation Comments Potassium Level (test code = 2823-3) 4.5 3.5-5.1 [facility] chloride measurement (moles/volume)2020-06-03 15:10:00* Test Item Value Reference Range Interpretation Comments Chloride Level (test code = 2075-0) 99 98-107 [facility] carbon dioxide, total measurement (moles/volume)2020-06-03 15:10:00* Test Item Value Reference Range Interpretation Comments Carbon Dioxide Level (test code = 2028-9) 23 22-29 [facility] plasma anion uzw0411-91-99 15:10:00* Test Item Value Reference Range Interpretation Comments Anion Gap (test code = 57389-5) 15.5 8-16 [facility] urea nitrogen measurement (mass/volume)2020-06-03 15:10:00* Test Item Value Reference Range Interpretation Comments Blood Urea Nitrogen (test code = 3094-0) 14 7-26 [facility] creatinine measurement (mass/volume)2020-06-03 15:10:00* Test Item Value Reference Range Interpretation Comments Creatinine (test code = 2160-0) 1.04 0.57-1.11 [facility] urea nitrogen/creatinine mass ntwgy7601-17-06 15:10:00* Test Item Value Reference Range Interpretation Comments BUN/Creatinine Ratio (test code = 3097-3) 13 6-25 [facility] CampusEstimated glomerular filtration rate (GFR) dsxdygyvfrxin2815-17-49 15:10:00* Test Item Value Reference Range Interpretation Comments Estimat Glomerular Filtration Rate (test code = 593453662) 50 >60 Ranges were taken from the National Kidney Disease Education Program and the [facility] literature.Reference ranges:60 or greater: Cjcdpm04-40 ( for 3 consecutive months): Chronic kidney disease 15 or less: Kidney failureThe [facility] of [facility] CampusGlucose fwmtibnvnea9930-75-44 15:10:00* Test Item Value Reference Range Interpretation Comments Glucose Level (test code = TQE3406) 104 74-118 [facility] plasma calcium measurement (mass/volume)2020-06-03 15:10:00* Test Item Value Reference Range Interpretation Comments Calcium Level (test code = 08420-6) 9.8 8.4-10.2 [facility] plasma total bilirubin measurement (mass/volume)2020-06-03 15:10:00* Test Item Value Reference Range Interpretation Comments Total Bilirubin (test code = 1975-2) 0.6 0.2-1.2 [facility] CampusFluoroscopic procedure less than one hour odsnmpkz0659-14-86 15:10:00* Test Item Value Reference Range Interpretation Comments Aspartate Amino Transf (AST/SGOT) (test code = Aspartate Amino Transf (AST/SGOT)) 31 5-34 [facility] or plasma alanine aminotransferase measurement (enzymatic activity/volume)2020-06-03 15:10:00* Test Item Value Reference Range Interpretation Comments Alanine Aminotransferase (ALT/SGPT) (test code = 1742-6) 18 0-55 [facility] protein measurement (mass/volume)2020-06-03 15:10:00* Test Item Value Reference Range Interpretation Comments Total Protein (test code = 2885-2) 8.0 6.5-8.1 [facility] plasma albumin measurement (mass/volume)2020-06-03 15:10:00* Test Item Value Reference Range Interpretation Comments Albumin (test code = 1751-7) 4.7 3.5-5.0 [facility] CampusPlasma globulin measurement (mass/volume) 2020-06-03 15:10:00* Test Item Value Reference Range Interpretation Comments Globulin (test code = 86055-6) 3.3 2.3-3.5 [facility] albumin/globulin mass zgklw0411-44-57 15:10:00* Test Item Value Reference Range Interpretation Comments Albumin/Globulin Ratio (test code = 1759-0) 1.4 0.8-2.0 [facility] plasma alkaline phosphatase measurement (enzymatic activity/volume)2020-06-03 15:10:00* Test Item Value Reference Range Interpretation Comments Alkaline Phosphatase (test code = 6768-6) 88 40-150 [facility] CampusMODIFIED BA. JRCMOJE8784-43-02 14:51:00 [facility] [address] [place] [address] Patient Name: FRANK PERRY MR #: [id number] : 1930 Age/Sex: 89/F Req #: [id number] Adm Physician: Ordered by: SHARAD YOUNG, ABAD YOUNG Report #: [id number] Location: DX Room/Bed: Procedure: [id number] DX/MODIFIED BA. SW ALLOW Exam Date: 06/01/20 Exam Time: 0950 REPORT STATUS: Signed Modified barium s wallow exam with speech pathology service CLINICAL HISTORY: Concern for pha ryngeal dysphasia and aspiration Fluoro Time: 2.1 min. Dose: 7.6 mGy IMPRESSION: Please see the speech pathology service report for details. Barium contrast of multiple consistencies is given to the patient to swallow . Fluoroscopic observation is performed during swallowing. No aspiration is noted. Significant residue is noted with thin liquids within the performed sin us and vallecula. Please see speech pathologist report for further details. Signed by: Ángel Taylor MD on 06/01/2020 2:52 PM Dictated By: ÁNGEL VALDERRAMA MD 51 Transcribed By: ROLO on 06/01/201451 COPY TO: ABAD OROURKE Fluoroscopic procedure less than one hour jgyuotaq1489-61-81 09:40:00* Test Item Value Reference Range Interpretation Comments Coronavirus (PCR) (test code = Coronavirus (PCR)) NOT DETECTED NOTD ETECTED SARS-CoV-2 PCRHologic Aptima SARS-CoV-2 assay is a nucleic amplification test in tended for the qualitative detection of RNA from SARS-CoV-2 from nasopharyngeal (TECHNOLOGY COACH) specimens. It is used under Emergency Use Authorization (EUA) by FDA.A posi tive result is indicative of the presence of SARS-CoV-2 RNA. Clinical correlatio n with patient history and other diagnostic information is necessary to determin e patient infection status.A negative (Not Detected) result does not preclude SA RS-CoV-2 infection. Clinical Correlation with patient history and other diagnost ic information should be used in patient management decisions.Invalid: Unable to generate a valid result on this specimen. Please submit a new specimen for repr at testing oc clinically indicated.Tesing performed by:[facility] Laboratory Services3 01 [facility] [id number], Elizabeth doan MD, PhDThe [facility] CampusBlood leukocytes automated count (number/volume)2020-04-25 04:42:00* Test Item Value Reference Range Interpretation Comments White Blood Count (test code = 6690-2) 10.19 4.8-10.8 [facility] CampusBlood erythrocytes automated count (number/volume)2020-04-25 04:42:00* Test Item Value Reference Range Interpretation Comments Red Blood Count (test code = 789-8) 3.85 3.6-5.1 [facility] CampusBlood hemoglobin measurement (moles/volume)2020-04-25 04:42:00* Test Item Value Reference Range Interpretation Comments Hemoglobin (test code = 23045-0) 11.5 12.0-16.0 [facility] CampusAutomated blood hematocrit (volume fraction)2020-04-25 04:42:00* Test Item Value Reference Range Interpretation Comments Hematocrit (test code = 4544-3) 33.8 34.2-44.1 [facility] CampusAutomated erythrocyte mean corpuscular nnhqks4177-55-62 04:42:00* Test Item Value Reference Range Interpretation Comments Mean Corpuscular Volume (test code = 787-2) 87.8 81-99 [facility] CampusAutomated erythrocyte mean corpuscular hemoglobin (mass per erythrocyte)2020-04-25 04:42:00* Test Item Value Reference Range Interpretation Comments Mean Corpuscular Hemoglobin (test code = 785-6) 29.9 28-32 [facility] CampusAutomated erythrocyte mean corpuscular hemoglobin concentration measurement (mass/volume)2020-04-25 04:42:00* Test Item Value Reference Range Interpretation Comments Mean Corpuscular Hemoglobin Concent (test code = 786-4) 34.0 31-35 [facility] CampusRDW TlyYu-Vlb4742-23-08 04:42:00* Test Item Value Reference Range Interpretation Comments Red Cell Distribution Width (test code = 62018-5) 13.1 11.7 -14.4 [facility] CampusAutomated blood platelet count (count/volume)2020-04-25 04:42:00* Test Item Value Reference Range Interpretation Comments Platelet Count (test code = 777-3) 241 140-360 [facility] CampusAutomated blood segmented neutrophil count as percentage of total xtrrziltvg4240-25-67 04:42:00* Test Item Value Reference Range Interpretation Comments Neutrophils (%) (Auto) (test code = 71503-0) 61.5 38.7-80.0 [facility] CampusAutomated blood lymphocyte count as percentage ot total alhvyoilya6981-04-59 04:42:00* Test Item Value Reference Range Interpretation Comments Lymphocytes (%) (Auto) (test code = 736-9) 17.3 18.0-39.1 [facility] CampusAutomated blood monocyte count as percentage of total zvrkqrpqlr1933-39-12 04:42:00* Test Item Value Reference Range Interpretation Comments Monocytes (%) (Auto) (test code = 5905-5) 11.7 4.4-11.3 [facility] CampusAutomated blood eosinophil count as percentage of total cjrllshmmh5130-83-70 04:42:00* Test Item Value Reference Range Interpretation Comments Eosinophils (%) (Auto) (test code = 713-8) 5.7 0.0-6.0 [facility] CampusAutomated blood basophil count as percentage of total vrnypfaslz7085-02-35 04:42:00* Test Item Value Reference Range Interpretation Comments Basophils (%) (Auto) (test code = 706-2) 0.5 0.0-1.0 [facility] CampusFluoroscopic procedure less than one hour nuksnelx3468-48-30 04:42:00* Test Item Value Reference Range Interpretation Comments IM GRANULOCYTES % (test code = IM GRANULOCYTES %) 3.3 0.0- 1.0 [facility] CampusAutomated blood neutrophil count 2020-04-25 04:42:00* Test Item Value Reference Range Interpretation Comments Neutrophils # (Auto) (test code = 751-8) 6.3 2.1-6.9 [facility] CampusBlood lymphocytes count (number/volume) 2020-04-25 04:42:00* Test Item Value Reference Range Interpretation Comments Lymphocytes # (Auto) (test code = 86602-9) 1.8 1.0-3.2 [facility] CampusBlood monocytes automated count (number/volume)2020-04-25 04:42:00* Test Item Value Reference Range Interpretation Comments Monocytes # (Auto) (test code = 742-7) 1.2 0.2-0.8 [facility] CampusAutomated blood eosinophil count 2020-04-25 04:42:00* Test Item Value Reference Range Interpretation Comments Eosinophils # (Auto) (test code = 711-2) 0.6 0.0-0.4 [facility] CampusAutlevine children[facility] hospitaled blood basophil count (count/volume)2020-04-25 04:42:00* Test Item Value Reference Range Interpretation Comments Basophils # (Auto) (test code = 704-7) 0.1 0.0-0.1 [facility] CampusFluoroscopic procedure less than one hour ettvqpbk6270-67-90 04:42:00* Test Item Value Reference Range Interpretation Comments Absolute Immature Granulocyte (auto (inocente t code = Absolute Immature Granulocyte (auto) 0.34 0-0.1 [facility] sodium [facility] (moles/volume)2020-04-25 04:42:00* Test Item Value Reference Range Interpretation Comments Sodium Level (test code = 2951-2) 134 136-145 [facility] potassium measurement (moles/volume)2020-04-25 04:42:00* Test Item Value Reference Range Interpretation Comments Potassium Level (test code = 2823-3) 4.2 3.5-5.1 [facility] chloride measurement (moles/volume)2020-04-25 04:42:00* Test Item Value Reference Range Interpretation Comments Chloride Level (test code = 2075-0) 104 98-107 [facility] carbon dioxide, total measurement (moles/volume)2020-04-25 04:42:00* Test Item Value Reference Range Interpretation Comments Carbon Dioxide Level (test code = 2028-9) 23 22-29 [facility] anion rvx3995-18-65 04:42:00* Test Item Value Reference Range Interpretation Comments Anion Gap (test code = 87934-0) 11.2 8-16 [facility] urea nitrogen measurement (mass/volume)2020-04-25 04:42:00* Test Item Value Reference Range Interpretation Comments Blood Urea Nitrogen (test code = 3094-0) 11 7-26 [facility] creatinine measurement (mass/volume)2020-04-25 04:42:00* Test Item Value Reference Range Interpretation Comments Creatinine (test code = 2160-0) 0.79 0.57-1.11 [facility] urea nitrogen/creatinine mass xoeuj8373-84-96 04:42:00* Test Item Value Reference Range Interpretation Comments BUN/Creatinine Ratio (test code = 3097-3) 14 6-25 [facility] CampusEstimated glomerular filtration rate (GFR) hbvzszmjnkxum8784-70-99 04:42:00* Test Item Value Reference Range Interpretation Comments Estimat Glomerular Filtration Rate (test code = 930438018) > 60 >60 Ranges were taken from the National Kidney Disease Education Program and the [facility] literature.Reference ranges:60 or greater: Vxckml18-17 ( for 3 consecutive months): Chronic kidney disease 15 or less: Kidney failureThe [facility] CampusGlucose bsxhkicmbdp6563-75-89 04:42:00* Test Item Value Reference Range Interpretation Comments Glucose Level (test code = XGI9817) 94 74-118 [facility] calcium measurement (mass/volume)2020-04-25 04:42:00* Test Item Value Reference Range Interpretation Comments Calcium Level (test code = 60853-5) 8.8 8.4-10.2 [facility] total bilirubin measurement (mass/volume)2020-04-25 04:42:00* Test Item Value Reference Range Interpretation Comments Total Bilirubin (test code = 1975-2) 0.6 0.2-1.2 [facility] CampusFluoroscopic procedure less than one hour qnbimmse5732-40-71 04:42:00* Test Item Value Reference Range Interpretation Comments Aspartate Amino Transf (AST/SGOT) (test code = Aspartate Amino Transf (AST/SGOT)) 19 5-34 [facility]er[facility] plasma alanine aminotransferase measurement (enzymatic activity/volume)2020-04-25 04:42:00* Test Item Value Reference Range Interpretation Comments Alanine Aminotransferase (ALT/SGPT) (test code = 1742-6) 15 0-55 [facility] protein measurement (mass/volume)2020-04-25 04:42:00* Test Item Value Reference Range Interpretation Comments Total Protein (test code = 2885-2) 5.9 6.5-8.1 [facility]er[facility] albumin measurement (mass/volume)2020-04-25 04:42:00* Test Item Value Reference Range Interpretation Comments Albumin (test code = 1751-7) 3.3 3.5-5.0 [facility] CampusPlasma globulin measurement (mass/volume) 2020-04-25 04:42:00* Test Item Value Reference Range Interpretation Comments Globulin (test code = 38122-0) 2.6 2.3-3.5 [facility] albumin/globulin mass jbsfg9799-76-60 04:42:00* Test Item Value Reference Range Interpretation Comments Albumin/Globulin Ratio (test code = 1759-0) 1.3 0.8-2.0 [facility] plasma alkaline phosphatase measurement (enzymatic activity/volume)2020-04-25 04:42:00* Test Item Value Reference Range Interpretation Comments Alkaline Phosphatase (test code = 6768-6) 72 40-150 [facility] CampusUrine color ufxhfjvukpmov3248-13-91 02:50:00* Test Item Value Reference Range Interpretation Comments Urine Color (test code = 5778-6) YELLOW YELLOW [facility] CampusUrine ebnsbgu3225-58-13 02:50:00* Test Item Value Reference Range Interpretation Comments Urine Clarity (test code = 85483-8) CLEAR CLEAR [facility] Hospitalpecific gravity of Urine by Test strip 2020-04-25 02:50:00* Test Item Value Reference Range Interpretation Comments Urine Specific Springer (test code = 5811-5) 1.020 1.010-1.02 5 [facility] CampusUrine pH measurement by automated test ezsga2914-58-35 02:50:00* Test Item Value Reference Range Interpretation Comments Urine pH (test code = 43321-2) 7 5-7 [facility] CampusUrine leukocyte esterase detection by agcxyghj8639-71-89 02:50:00* Test Item Value Reference Range Interpretation Comments Urine Leukocyte Esterase (test code = 5799-2) NEGATIVE NEGATIVE [facility] CampusUrine nitrite wuzoontpe2092-51-12 02:50:00* Test Item Value Reference Range Interpretation Comments Urine Nitrite (test code = 60335-4) NEGATIVE NEGATIVE [facility] CampusUrine protein measurement by test strip (mass/volume)2020-04-25 02:50:00* Test Item Value Reference Range Interpretation Comments Urine Protein (test code = 5804-0) NEGATIVE NEGATIVE [facility] CampusUrine glucose owmkwczwr4012-54-47 02:50:00* Test Item Value Reference Range Interpretation Comments Urine Glucose (UA) (test code = 2349-9) NEGATIVE NEGATIVE [facility] CampusUrine ketones detection by automated test wxglj1300-47-40 02:50:00* Test Item Value Reference Range Interpretation Comments Urine Ketones (test code = 90319-7) NEGATIVE NEGATIVE [facility] CampusUrine urobilinogen measurement by test strip (mass/volume)2020-04-25 02:50:00* Test Item Value Reference Range Interpretation Comments Urine Urobilinogen (test code = 90050-1) 0.2 0.2-1 [facility] CampusUrine total bilirubin measurement (mass/volume)2020-04-25 02:50:00* Test Item Value Reference Range Interpretation Comments Urine Bilirubin (test code = 1978-6) NEGATIVE NEGATIVE [facility] CampusUrine erythrocytes jhaecpvbv7198-80-82 02:50:00* Test Item Value Reference Range Interpretation Comments Urine Blood (test code = 38862-3) TRACE NEGATIVE [facility] CampusAutomated urine sediment leukocyte count by microscopy (number/high power field)2020-04-25 02:50:00* Test Item Value Reference Range Interpretation Comments Urine WBC (test code = 5821-4) 0-5 0-5 [facility] CampusErythrocytes detection in urine sediment by light jleuqwsstk3072-15-46 02:50:00* Test Item Value Reference Range Interpretation Comments Urine RBC (test code = 48035-9) 0-5 0-5 [facility] CampusBacteria detection in urine sediment by light wukbobuson4082-90-88 02:50:00* Test Item Value Reference Range Interpretation Comments Urine Bacteria (test code = 13563-3) RARE NONE [facility] CampusEpithelial cells detection in urine sediment by light tagsxdalia0313-89-97 02:50:00* Test Item Value Reference Range Interpretation Comments Urine Epithelial Cells (test code = 95783-8) FEW NONE [facility] plasma uric acid measurement (mass/volume)2020-04-23 15:32:00* Test Item Value Reference Range Interpretation Comments Uric Acid (test code = 3084-1) 2.9 2.6-8.0 [facility] uric acid measurement (mass/volume)2020-04-23 15:32:00* Test Item Value Reference Range Interpretation Comments Uric Acid (test code = 3084-1) 2.9 2.6-8.0 [facility] CampusFluoroscopic procedure less than one hour rlhmhzqr0283-63-59 04:40:00* Test Item Value Reference Range Interpretation Comments Differential Total Cells Counted (test code = Differmary tial Total Cells Counted) 100 [facility] CampusManual blood neutrophils/100 leukocytes 2020-04-23 04:40:00* Test Item Value Reference Range Interpretation Comments Neutrophils % (Manual) (test code = 37948-1) 77 40-74 [facility] blood band neutrophils form/100 lplpiuikdo5484-53-23 04:40:00* Test Item Value Reference Range Interpretation Comments Band Neutrophils % (test code = 764-1) 5 [facility] CampusManual blood lymphocytes/100 leukocytes 2020-04-23 04:40:00* Test Item Value Reference Range Interpretation Comments Lymphocytes % (Manual) (test code = 737-7) 9 19-48 [facility] blood monocytes/100 leukocytes 2020-04-23 04:40:00* Test Item Value Reference Range Interpretation Comments Monocytes % (Manual) (test code = 744-3) 8 3.4-9.0 [facility] blood eosinophil count as percentage of total wqreukmxxw2142-85-12 04:40:00* Test Item Value Reference Range Interpretation Comments Eosinophils % (Manual) (test code = 714-6) 1 0-7 [facility] CampusPhosphorus gjwianjqcme5671-16-71 04:40:00 * Test Item Value Reference Range Interpretation Comments Phosphorus Level (test code = ROC4096) 3.0 2.3-4.7 [facility] creatine kinase measurement (enzymatic activity/volume)2020-04-23 04:40:00* Test Item Value Reference Range Interpretation Comments Creatine Kinase (test code = 2157-6) 58 29-168 [facility] creatine kinase MB measurement (mass/volume)2020-04-23 04:40:00* Test Item Value Reference Range Interpretation Comments Creatine Kinase MB (test code = 13519-7) 2.60 0-5.0 [facility] CampusTroponin I measurement by highly sensitive enzyme easyittoggf0689-97-51 04:40:00* Test Item Value Reference Range Interpretation Comments Troponin I (test code = 44682-2) 0.005 0-0.300 [facility] CampusFluoroscopic procedure less than one hour dxpomutg6825-81-00 04:40:00* Test Item Value Reference Range Interpretation Comments Differential Total Cells Counted (test code = Kamryn rogersl Total Cells Counted) 100 [facility] blood neutrophils/100 leukocytes 2020-04-23 04:40:00* Test Item Value Reference Range Interpretation Comments Neutrophils % (Manual) (test code = 65277-8) 77 40-74 [facility] blood band neutrophils form/100 lzifopkmhq9711-44-55 04:40:00* Test Item Value Reference Range Interpretation Comments Band Neutrophils % (test code = 764-1) 5 [facility] CampusManual blood lymphocytes/100 leukocytes 2020-04-23 04:40:00* Test Item Value Reference Range Interpretation Comments Lymphocytes % (Manual) (test code = 737-7) 9 19-48 [facility] CampusManual blood monocytes/100 leukocytes 2020-04-23 04:40:00* Test Item Value Reference Range Interpretation Comments Monocytes % (Manual) (test code = 744-3) 8 3.4-9.0 [facility] as percentage of total rvneigmslp7453-49-88 04:40:00* Test Item Value Reference Range Interpretation Comments Eosinophils % (Manual) (test code = 714-6) 1 0-7 [facility] CampusPhosphorus hrprwlusawr7717-32-36 04:40:00 * Test Item Value Reference Range Interpretation Comments Phosphorus Level (test code = VFM9979) 3.0 2.3-4.7 [facility] creatine kinase measurement (enzymatic activity/volume)2020-04-23 04:40:00* Test Item Value Reference Range Interpretation Comments Creatine Kinase (test code = 2157-6) 58 29-168 [facility] creatine kinase MB measurement (mass/volume)2020-04-23 04:40:00* Test Item Value Reference Range Interpretation Comments Creatine Kinase MB (test code = 06662-0) 2.60 0-5.0 [facility] CampusTroponin I measurement by highly sensitive enzyme jjeivwqkzyo2269-53-05 04:40:00* Test Item Value Reference Range Interpretation Comments Troponin I (test code = 77814-6) 0.005 0-0.300 [facility] CampusFluoroscopic procedure less than one hour wlhmmyve1029-96-78 04:39:00* Test Item Value Reference Range Interpretation Comments Hemoglobin A1c Percent (test code = Hemoglobin A1c Percent) 5.2 4.0-7.0 [facility] CampusAmmonia Zet-tHrt7577-26-06 04:39:00* Test Item Value Reference Range Interpretation Comments Ammonia (test code = 68281-9) 65 31-123 [facility] CampusFluoroscopic procedure less than one hour oxlyxnrm8716-93-87 04:39:00* Test Item Value Reference Range Interpretation Comments Hemoglobin A1c Percent (test code = Hemoglobin A1c Percent) 5.2 4.0-7.0 [facility] CampusAmmonia Ecm-iTzn1535-89-06 04:39:00* Test Item Value Reference Range Interpretation Comments Ammonia (test code = 08371-6) 65 31-123 [facility] CampusMRI SPINE LUMBAR HF2108-14-56 12:53:00 [facility] [address] [place] [address] Patient Name: FRANK PERRY MR #: [id number] : 1930 Age/Sex: 89/F Req #: [id number] Adm Physician: HAYLIE MORAN MD Ordered by: LILIANA GARCIA MD Repor t #: [id number] Location: MED/SURG Room/Bed : [facility] Procedure: MRI/MRI SPINE SHERWIN MBAR WO Exam Date: Exam Time: REPORT STATUS: [...] canal stenosi s. Signed by: Dr. Cornelius Paiz M.D. on 04/22/2020 1:02 PM Dictated By: CORNELIUS PAIZ MD [address] scribed By: ROLO on 04/22/20 1302 COPY TO: LILIANA GARCIA MD Fluoroscopic procedure less than one hour wdvvrsgd4281-74-38 10:39:00* Test Item Value Reference Range Interpretation Comments Coronavirus (PCR) (test code = Coronavirus (PCR)) NOT DETECTED NOTD [facility]ED [facility] SARS-[facility]-2 assay is a nucleic amplification test intended for the qualitative detection of RNA from SARS-CoV-2 from nasopharyngeal (TECHNOLOGY COACH) specimens . It is used under Emergency [...] for reprat testing oc clinically indicated.Tesing performed by:[facility] [address] [place] [address] [id number], Elizabeth Lazcano MD, PhD [facility] CampusUrine opiates screening szum6838-73-96 10:16:00* Test Item Value Reference Range Interpretation Comments Urine Opiates Screen (test code = 66096-2) NEGATIVE NEGATIVE ALL TESTS PERFORMED MANUALLY ON Cvent TOX/SEE TESTThe [facility] CampusBarbiturates screen, hlnii9747-29-90 10:16:00* Test Item Value Reference Range Interpretation Comments Urine Barbiturates Screen (test code = 783148636) NEGATIVE NEGA TIVE [facility] CampusUrine phencyclidine detection by screening lbjcyo3924-91-13 10:16:00* Test Item Value Reference Range Interpretation Comments Urine Phencyclidine Screen (test code = 80258-9) NEGATIVE NEGAT ASHLEY [facility] CampusUrine amphetamines detection by screen method > 1000 ng/sA6011-61-78 10:16:00* Test Item Value Reference Range Interpretation Comments Urine Amphetamines Screen (test code = 64884-5) NEGATIVE NEGATI VE [facility] CampusFluoroscopic procedure less than one hour fpwrugnl8388-13-38 10:16:00* Test Item Value Reference Range Interpretation Comments Urine Methamphetamines Screen (test code = Urine Metha mphetamines Screen) NEGATIVE NEGATIVE [facility] CampusUrine benzodiazepines detection by screening pjlhbh5816-31-67 10:16:00* Test Item Value Reference Range Interpretation Comments Urine Benzodiazepines Screen (test code = 87462-5) NEGATIVE NEG ATIVE [facility] CampusUrine cocaine measurement (mass/volume) 2020-04-22 10:16:00* Test Item Value Reference Range Interpretation Comments Urine Cocaine Screen (test code = 3398-5) NEGATIVE NEGATIVE [facility] CampusUrine cannabinoids detection by screening dhmnrg6266-50-04 10:16:00* Test Item Value Reference Range Interpretation Comments Urine Cannabinoids Screen (test code = 69338-0) NEGATIVE NEGATI VE THESE RESULTS ARE FOR MEDICAL TREATMENT ONLYTHIS REPORT CONTAINS UNCONFIR MED SCREENING RESULTS*POSITIVE RESULTS WILL BE CONFIRMED BY REFERENCE LAB UPON R EQUEST CUT-OFFDRUG CLASS CONCENTRATION ng/mLAmphetamines 1000Methamphetamines 1000Cocaine 300Opiate 300Phencyc lidine 25Cannabinoid 50Barbiturates 300Benzodiazepine 300Methadone 300[facility] CampusUrine methadone itfrul6143-48-47 10:16:00* Test Item Value Reference Range Interpretation Comments Urine Methadone Screen (test code = 11653-0) NEGATIVE NEGATIVE THESE RESULTS ARE FOR MEDICAL TREATMENT ONLYTHIS REPORT CONTAINS UNCONFIR MED SCREENING RESULTS*POSITIVE RESULTS WILL BE CONFIRMED BY REFERENCE LAB UPON R EQUEST CUT-OFFDRUG CLASS CONCENTRATION ng/mLAmphetamines 1000Methamphetamines 1000Cocaine Metabolite 300Opiate 300Phencyc lidine 25Cannabinoid 50Barbiturates 300Benzodiazepine 300Methadone 300[facility] CampusUrine sodium measurement (moles/volume)2020-04-22 10:16:00* Test Item Value Reference Range Interpretation Comments Urine Random Sodium (test code = 2955-3) 20 [facility] CampusOsmolality of Rpkpy3172-78-17 10:16:00* Test Item Value Reference Range Interpretation Comments Urine Osmolality (test code = 2695-5) 397 . 24 hr : 300 - 900 Random: 50 - 1400 After 12hr fluid restriction: >850Performed at: [facility] [address] [id number] Director: Drew Julien MD, Phone: [phone] [facility] CampusUrine opiates screening eioj5010-61-39 10:16:00* Test Item Value Reference Range Interpretation Comments Urine Opiates Screen (test code = 57267-0) NEGATIVE NEGATIVE ALL TESTS PERFORMED MANUALLY ON BIORAD TOX/SEE TESTThe [facility] CampusBarbiturates screen, dblud2674-99-87 10:16:00* Test Item Value Reference Range Interpretation Comments Urine Barbiturates Screen (test code = 617794228) NEGATIVE NEGA TIVE [facility] CampusUrine phencyclidine detection by screening mfzbqq6914-08-41 10:16:00* Test Item Value Reference Range Interpretation Comments Urine Phencyclidine Screen (test code = 54426-2) NEGATIVE NEGAT ASHLEY [facility] CampusUrine amphetamines detection by screen method > 1000 ng/rB3171-30-85 10:16:00* Test Item Value Reference Range Interpretation Comments Urine Amphetamines Screen (test code = 59155-7) NEGATIVE NEGATI VE [facility] CampusFluoroscopic procedure less than one hour zseoqovk9304-39-85 10:16:00* Test Item Value Reference Range Interpretation Comments Urine Methamphetamines Screen (test code = Urine Metha mphetamines Screen) NEGATIVE NEGATIVE [facility] CampusUrine benzodiazepines detection by screening kscdsa8586-45-32 10:16:00* Test Item Value Reference Range Interpretation Comments Urine Benzodiazepines Screen (test code = 67191-2) NEGATIVE NEG ATIVE [facility] CampusUrine cocaine measurement (mass/volume) 2020-04-22 10:16:00* Test Item Value Reference Range Interpretation Comments Urine Cocaine Screen (test code = 3398-5) NEGATIVE NEGATIVE [facility] CampusUrine cannabinoids detection by screening qmefdu9339-10-14 10:16:00* Test Item Value Reference Range Interpretation Comments Urine Cannabinoids Screen (test code = 13529-0) NEGATIVE NEGATI VE THESE RESULTS ARE FOR MEDICAL TREATMENT ONLYTHIS REPORT CONTAINS UNCONFIR MED SCREENING RESULTS*POSITIVE RESULTS WILL BE CONFIRMED BY REFERENCE LAB UPON R EQUEST CUT-OFFDRUG CLASS CONCENTRATION ng/mLAmphetamines 1000Methamphetamines 1000Cocaine 300Opiate 300Phencyc lidine 25Cannabinoid 50Barbiturates 300Benzodiazepine 300Methadone 300[facility] HospitalU[facility] methadone gqfcxe0486-25-76 10:16:00* Test Item Value Reference Range Interpretation Comments Urine Methadone Screen (test code = 53765-1) NEGATIVE NEGATIVE THESE RESULTS ARE FOR MEDICAL TREATMENT ONLYTHIS REPORT CONTAINS UNCONFIR MED SCREENING RESULTS*POSITIVE RESULTS WILL BE CONFIRMED BY REFERENCE LAB UPON R EQUEST CUT-OFFDRUG CLASS CONCENTRATION ng/mLAmphetamines 1000Methamphetamines 1000Cocaine Metabolite 300Opiate 300Phencyc lidine 25Cannabinoid 50Barbiturates 300Benzodiazepine 300Methadone 300[facility] HospitalUrine sodium measurement (moles/volume)2020-04-22 10:16:00* Test Item Value Reference Range Interpretation Comments Urine Random Sodium (test code = 2955-3) 20 [facility] HospitalOsmolality of Tkykh3656-09-70 10:16:00* Test Item Value Reference Range Interpretation Comments Urine Osmolality (test code = 2695-5) 397 . 24 hr : 300 - 900 Random: 50 - 1400 After 12hr fluid restriction: >850Performed at: - [facility] [address] [id number] Director: Drew Julien MD, Phone: [phone] [facility] CampusCT BRAIN [id number] 10:03:00 [facility] [address] [address] Patient Name: FRANK PERRY MR #: [id number] : 1930 Age/Sex: 89/F Req #: [id number] Adm Physician: Ordered by: LILIANA GARCIA MD Report #: [id number] Location: ER Room/Bed: Procedure: CT/CT BRAIN WO Exam Date: 04/22/20 Exam [...] cortical infarct. Signed b y: Dr. Cornelius Paiz M.D. on 04/22/2020 10:05 AM Dictated By: CORNELIUS PAIZ MD 1005 Transcribed By: VESAT WALTERS on 04/22/20 1005 COPY TO: LILIAAN GARCIA MD CHEST SINGLE (PORTABLE)2020-04-22 09:56:[address] [address] Patient Name: FRANK PERRY MR #: [id number] : 1930 Age/Sex: 89/F Req #: [id number] Adm Physician: Ordered by: LILIANA GARCIA MD Report #: [id number] Location: ER Room/Bed: Procedure: [id number] DX/CHEST SINGLE (PORTABLE) Exam Date: 04/22/20 Exam [...] Time (test code = 5902-2) 12.7 11.9-14.5 [facility] CampusINR in Platelet poor plasma by Coagulation graca4171-65-12 09:17:00* Test Item Value Reference Range Interpretation Comments Prothromb Time International Ratio (test code = 6301-6) 0.91 Oral Anticoagulant Therapy INR Values:1. Low Intensity Therapy 1.5 - 2.02 . Moderate Intensity Therapy 2.0 - 3.03. High Intensity Therapy(1) 2.5 - 3. 54. High Intensity Therapy(2) 3.0 - 4.05. Panic Value INR > 5.0 [facility] CampusActivated partial thromboplastin time (aPTT) in platelet poor plasma by coagulation agvbp5926-17-57 09:17:00* Test Item Value Reference Range Interpretation Comments Activated Partial Thromboplast Time (test code = 10556-1) 29.0 23.8-35.5 [facility] CampusOsmolality of Serum or Plasma by fbzkwmzwual2329-28-33 09:17:00* Test Item Value Reference Range Interpretation Comments Serum Osmolality (test code = 39640-1) 244 278-305 [facility]erum or plasma magnesium measurement (mass/volume)2020-04-22 09:17:00* Test Item Value Reference Range Interpretation Comments Magnesium Level (test code = 07660-6) 2.0 1.3-2.1 [facility] Hospitalerum or plasma triglyceride measurement (mass/volume)2020-04-22 09:17:00* Test Item Value Reference Range Interpretation Comments Triglycerides Level (test code = 2571-8) 145 0-149 [facility]erum or plasma cholesterol measurement (mass/volume)2020-04-22 09:17:00* Test Item Value Reference Range Interpretation Comments Cholesterol Level (test code = 2093-3) 220 0-199 Less than 200 mg/dL Low Gfka119 - 239 mg/dL Borderline Rlje776 m g/dl and greater High Risk [facility]erum or plasma cholesterol in LDL measurement (mass/volume) 2020-04-22 09:17:00* Test Item Value Reference Range Interpretation Comments LDL Cholesterol (test code = 2089-1) 147 60-130 [facility]erum or plasma cholesterol in HDL measurement (mass/volume)2020-04-22 09:17:00* Test Item Value Reference Range Interpretation Comments HDL Cholesterol (test code = 2085-9) 44 40-60 [facility]erum or plasma total cholesterol/cholesterol in HDL mass ijkbd3694-03-19 09:17:00* Test Item Value Reference Range Interpretation Comments Cholesterol/HDL Ratio (test code = 9830-1) 5.0 3.0-3.6 [facility]erum or plasma acetaminophen measurement by screening method (mass/volume)2020-04-22 09:17:00* Test Item Value Reference Range Interpretation Comments Acetaminophen Level (test code = 99228-8) < 3.0 10-30 [facility] CampusFree thyroxine dfvdj4592-51-58 09:17:00* Test Item Value Reference Range Interpretation Comments Free Thyroxine Index (test code = 22878-4) 3.3154 1.4-3.8 [facility]erum or plasma thyroxine (T4) measurement (mass/volume)2020-04-22 09:17:00* Test Item Value Reference Range Interpretation Comments Thyroxine (T4) (test code = 3026-2) 9.47 4.5-10.9 Our current method for Total T4 is not recommended for use as the only marker fo r evaluating patients for thyroid disorders.[facility] Hospitalerum or plasma triiodothyronine resin uptake (T3RU)2020-04-22 09:17:00* Test Item Value Reference Range Interpretation Comments Triiodothyronine (T3) Uptake (test code = 3050-2) 35.01 22.5 -37.0 [facility] Hospitalerum or plasma thyrotropin measurement by detection limit <= 0.005 miu/l (units/volume)2020-04-22 09:17:00* Test Item Value Reference Range Interpretation Comments Thyroid Stimulating Hormone (TSH) (test code = 16078-1) 1.095 0.350-4.940 [facility] CampusProthrombin time (PT) in platelet poor plasma by coagulation rnjim8756-01-63 09:17:00* Test Item Value Reference Range Interpretation Comments Prothrombin Time (test code = 5902-2) 12.7 11.9-14.5 [facility] CampusINR in Platelet poor plasma by Coagulation oesby0967-51-16 09:17:00* Test Item Value Reference Range Interpretation Comments Prothromb Time International Ratio (test code = 6301-6) 0.91 Oral Anticoagulant Therapy INR Values:1. Low Intensity Therapy 1.5 - 2.02 . Moderate Intensity Therapy 2.0 - 3.03. High Intensity Therapy(1) 2.5 - 3. 54. High Intensity Therapy(2) 3.0 - 4.05. Panic Value INR > 5.0 [facility] CampusActivated partial thromboplastin time (aPTT) in platelet poor plasma by coagulation qwtgu6398-22-98 09:17:00* Test Item Value Reference Range Interpretation Comments Activated Partial Thromboplast Time (test code = 44432-1) 29.0 23.8-35.5 [facility] CampusOsmolality of Serum or Plasma by jpfvuyamzgb4606-05-09 09:17:00* Test Item Value Reference Range Interpretation Comments Serum Osmolality (test code = 16959-1) 244 278-305 [facility]er[facility] or plasma magnesium measurement (mass/volume)2020-04-22 09:17:00* Test Item Value Reference Range Interpretation Comments Magnesium Level (test code = 32600-1) 2.0 1.3-2.1 [facility]erum or plasma triglyceride measurement (mass/volume)2020-04-22 09:17:00* Test Item Value Reference Range Interpretation Comments Triglycerides Level (test code = 2571-8) 145 0-149 [facility]erum or plasma cholesterol measurement (mass/volume)2020-04-22 09:17:00* Test Item Value Reference Range Interpretation Comments Cholesterol Level (test code = 2093-3) 220 0-199 Less than 200 mg/dL Low Uusy110 - 239 mg/dL Borderline Hewq532 m g/dl and greater High Risk [facility]erum or plasma cholesterol in LDL measurement (mass/volume) 2020-04-22 09:17:00* Test Item Value Reference Range Interpretation Comments LDL Cholesterol (test code = 2089-1) 147 60-130 [facility]erum or plasma cholesterol in HDL measurement (mass/volume)2020-04-22 09:17:00* Test Item Value Reference Range Interpretation Comments HDL Cholesterol (test code = 2085-9) 44 40-60 [facility]erum or plasma total cholesterol/cholesterol in HDL mass aooub9690-01-78 09:17:00* Test Item Value Reference Range Interpretation Comments Cholesterol/HDL Ratio (test code = 9830-1) 5.0 3.0-3.6 [facility]erum or plasma acetaminophen measurement by screening method (mass/volume)2020-04-22 09:17:00* Test Item Value Reference Range Interpretation Comments Acetaminophen Level (test code = 25621-0) < 3.0 10-30 [facility] CampusFree thyroxine sgzvg4805-45-32 09:17:00* Test Item Value Reference Range Interpretation Comments Free Thyroxine Index (test code = 02817-7) 3.3154 1.4-3.8 [facility]erum or plasma thyroxine (T4) measurement (mass/volume)2020-04-22 09:17:00* Test Item Value Reference Range Interpretation Comments Thyroxine (T4) (test code = 3026-2) 9.47 4.5-10.9 Our current method for Total T4 is not recommended for use as the only marker fo r evaluating patients for thyroid disorders.[facility] Hospitalerum or plasma triiodothyronine resin uptake (T3RU)2020-04-22 09:17:00* Test Item Value Reference Range Interpretation Comments Triiodothyronine (T3) Uptake (test code = 3050-2) 35.01 22.5 -37.0 [facility]erum or plasma thyrotropin measurement by detection limit <= 0.005 miu/l (units/volume)2020-04-22 09:17:00* Test Item Value Reference Range Interpretation Comments Thyroid Stimulating Hormone (TSH) (test code = 75357-6) 1.095 0.350-4.940 [facility] CampusPELVIS AP 1-2 AIJJE9946-92-91 13:41:00 [facility] [address] [place] [address] Patient Name: FRANK PERRY MR #: [id number] : 1930 Age/Sex: 89/F Req #: [id number] Adm Physician: Ordered by: LILIANA GARCIA MD Repor t #: [id number] Location: ER Room/Bed : Procedure: [id number] DX/PELVIS AP 1-2 VIEWS Exam Date: 04/19/20 [...] Dictated By: SERENE BOOTHE MD 1357 Transcribed B y: ROLO on 04/19/20 1357 COPY TO: LILIANA GARCIA MD SP LUMBAR, COMPLETE MIN [id number] 13:41:[address] [address] Patient Name: FRANK PERRY MR #: [id number] : 1930 Age/Sex: 89/F Req #: [id number] Adm Physician: Ordered by: LILIANA GARCIA MD Report #: [id number] Location: ER Room/Bed: Procedure: [id number] DX/SP LUMBAR, CO MPLETE MIN 4VW Exam [...] 1:57 PM Dictated By: FAHAD BOOTHE MD 9226 Trans cribed By: ROLO on 04/19/20 2145 COPY TO: LILIANA GARCIA MD Fluoroscopic procedure less than one hour gcofcryr6360-22-89 09:22:00* Test Item Value Reference Range Interpretation [...] complexity tests.Testing performed by Clinical Pathology Labor [address] [place], [place] [phone] Director: Eliu Lozano M.D.[facility] # [id number] [facility] Fluoroscopic procedure less than one hour edckjrud0128-26-30 09:22:00* Test Item Value Reference Range Interpretation [...] complexity tests.Testing performed by Clinical Pathology Labor [address] [place] [address] [phone] Director: Eliu Lozano M.D.CLIA # [id number] [facility] CampusBlred wing hospital and clinic leukocytes automated count (number/volume)2020-01-31 08:58:00* Test Item Value Reference Range Interpretation Comments White Blood Count (test code = 6690-2) 7.09 4.8-10.8 [facility] CampusBlred [facility] hospital and clinic erythrocytes automated count (number/volume)2020-01-31 08:58:00* Test Item Value Reference Range Interpretation Comments Red Blood Count (test code = 789-8) 4.32 3.6-5.1 [facility] CampusBlood hemoglobin measurement (moles/volume)2020-01-31 08:58:00* Test Item Value Reference Range Interpretation Comments Hemoglobin (test code = 83743-4) 12.9 12.0-16.0 [facility] CampusAutomated blood hematocrit (volume fraction)2020-01-31 08:58:00* Test Item Value Reference Range Interpretation Comments Hematocrit (test code = 4544-3) 38.6 34.2-44.1 [facility] CampusAutomated erythrocyte mean corpuscular xuiyxz9582-48-92 08:58:00* Test Item Value Reference Range Interpretation Comments Mean Corpuscular Volume (test code = 787-2) 89.4 81-99 [facility] CampusAutomated erythrocyte mean corpuscular hemoglobin (mass per erythrocyte)2020-01-31 08:58:00* Test Item Value Reference Range Interpretation Comments Mean Corpuscular Hemoglobin (test code = 785-6) 29.9 28-32 [facility] CampusAutomated erythrocyte mean corpuscular hemoglobin concentration measurement (mass/volume)2020-01-31 08:58:00* Test Item Value Reference Range Interpretation Comments Mean Corpuscular Hemoglobin Concent (test code = 786-4) 33.4 31-35 [facility] CampusRDW MsuKa-Tff5370-19-15 08:58:00* Test Item Value Reference Range Interpretation Comments Red Cell Distribution Width (test code = 31573-2) 12.8 11.7 -14.4 [facility] CampusAutomated blood platelet count (count/volume)2020-01-31 08:58:00* Test Item Value Reference Range Interpretation Comments Platelet Count (test code = 777-3) 199 140-360 [facility] CampusAutomated blood segmented neutrophil count as percentage of total wbuoouuhje0489-30-32 08:58:00* Test Item Value Reference Range Interpretation Comments Neutrophils (%) (Auto) (test code = 98292-1) 68.0 38.7-80.0 [facility] CampusAutomated blood lymphocyte count as percentage ot total gmvvrivpce4540-97-19 08:58:00* Test Item Value Reference Range Interpretation Comments Lymphocytes (%) (Auto) (test code = 736-9) 17.5 18.0-39.1 [facility] CampusAutomated blood monocyte count as percentage of total sxmhnmdhqv0273-54-34 08:58:00* Test Item Value Reference Range Interpretation Comments Monocytes (%) (Auto) (test code = 5905-5) 9.0 4.4-11.3 [facility] CampusAutomated blood eosinophil count as percentage of total twbbwcadlw6524-06-91 08:58:00* Test Item Value Reference Range Interpretation Comments Eosinophils (%) (Auto) (test code = 713-8) 3.9 0.0-6.0 [facility] CampusAutomated blood basophil count as percentage of total pirihdjzrc7167-65-09 08:58:00* Test Item Value Reference Range Interpretation Comments Basophils (%) (Auto) (test code = 706-2) 0.6 0.0-1.0 [facility] CampusFluoroscopic procedure less than one hour dawpjmyy8103-43-49 08:58:00* Test Item Value Reference Range Interpretation Comments IM GRANULOCYTES % (test code = IM GRANULOCYTES %) 1.0 0.0- 1.0 [facility] CampusAutomated blood neutrophil count 2020-01-31 08:58:00* Test Item Value Reference Range Interpretation Comments Neutrophils # (Auto) (test code = 751-8) 4.8 2.1-6.9 [facility] CampusBlred [facility] hospital and clinic lymphocytes count (number/volume) 2020-01-31 08:58:00* Test Item Value Reference Range Interpretation Comments Lymphocytes # (Auto) (test code = 27099-4) 1.2 1.0-3.2 [facility] CampusBlood monocytes automated count (number/volume)2020-01-31 08:58:00* Test Item Value Reference Range Interpretation Comments Monocytes # (Auto) (test code = 742-7) 0.6 0.2-0.8 [facility] CampusAutomated blood eosinophil count 2020-01-31 08:58:00* Test Item Value Reference Range Interpretation Comments Eosinophils # (Auto) (test code = 711-2) 0.3 0.0-0.4 [facility] CampusAutomated blood basophil count (count/volume)2020-01-31 08:58:00* Test Item Value Reference Range Interpretation Comments Basophils # (Auto) (test code = 704-7) 0.0 0.0-0.1 [facility] CampusFluoroscopic procedure less than one hour vmlpbakd5148-91-52 08:58:00* Test Item Value Reference Range Interpretation Comments Absolute Immature Granulocyte (auto (inocente t code = Absolute Immature Granulocyte (auto) 0.07 0-0.1 [facility] CampusBlood leukocytes automated count (number/volume)2020-01-31 08:58:00* Test Item Value Reference Range Interpretation Comments White Blood Count (test code = 6690-2) 7.09 4.8-10.8 [facility] CampusBlred [facility] hospital and clinic erythrocytes automated count (number/volume)2020-01-31 08:58:00* Test Item Value Reference Range Interpretation Comments Red Blood Count (test code = 789-8) 4.32 3.6-5.1 [facility] CampusBlood hemoglobin measurement (moles/volume)2020-01-31 08:58:00* Test Item Value Reference Range Interpretation Comments Hemoglobin (test code = 20966-8) 12.9 12.0-16.0 [facility] CampusAutomated blood hematocrit (volume fraction)2020-01-31 08:58:00* Test Item Value Reference Range Interpretation Comments Hematocrit (test code = 4544-3) 38.6 34.2-44.1 [facility] CampusAutomated erythrocyte mean corpuscular gsrobf2278-61-80 08:58:00* Test Item Value Reference Range Interpretation Comments Mean Corpuscular Volume (test code = 787-2) 89.4 81-99 [facility] CampusAutomated erythrocyte mean corpuscular hemoglobin (mass per erythrocyte)2020-01-31 08:58:00* Test Item Value Reference Range Interpretation Comments Mean Corpuscular Hemoglobin (test code = 785-6) 29.9 28-32 [facility] CampusAutomated erythrocyte mean corpuscular hemoglobin concentration measurement (mass/volume)2020-01-31 08:58:00* Test Item Value Reference Range Interpretation Comments Mean Corpuscular Hemoglobin Concent (test code = 786-4) 33.4 31-35 [facility] CampusRDW IayLg-Nbo6140-71-15 08:58:00* Test Item Value Reference Range Interpretation Comments Red Cell Distribution Width (test code = 41225-5) 12.8 11.7 -14.4 [facility] CampusAutomated blood platelet count (count/volume)2020-01-31 08:58:00* Test Item Value Reference Range Interpretation Comments Platelet Count (test code = 777-3) 199 140-360 [facility] CampusAutomated blood segmented neutrophil count as percentage of total rlpdaavqeb7338-09-22 08:58:00* Test Item Value Reference Range Interpretation Comments Neutrophils (%) (Auto) (test code = 88231-3) 68.0 38.7-80.0 [facility] CampusAutomated blood lymphocyte count as percentage ot total icnvmjmdfl6100-42-77 08:58:00* Test Item Value Reference Range Interpretation Comments Lymphocytes (%) (Auto) (test code = 736-9) 17.5 18.0-39.1 [facility] CampusAutomated blood monocyte count as percentage of total cqpiytzjlp3470-58-29 08:58:00* Test Item Value Reference Range Interpretation Comments Monocytes (%) (Auto) (test code = 5905-5) 9.0 4.4-11.3 [facility] CampusAutlevine children's hospitaled blood eosinophil count as percentage of total ehevapejde0026-22-87 08:58:00* Test Item Value Reference Range Interpretation Comments Eosinophils (%) (Auto) (test code = 713-8) 3.9 0.0-6.0 [facility] CampusAutomated blood basophil count as percentage of total imcolmseob7891-78-24 08:58:00* Test Item Value Reference Range Interpretation Comments Basophils (%) (Auto) (test code = 706-2) 0.6 0.0-1.0 [facility] CampusFluoroscopic procedure less than one hour sxpfoftv6364-37-13 08:58:00* Test Item Value Reference Range Interpretation Comments IM GRANULOCYTES % (test code = IM GRANULOCYTES %) 1.0 0.0- 1.0 [facility] CampusAutomated blood neutrophil count 2020-01-31 08:58:00* Test Item Value Reference Range Interpretation Comments Neutrophils # (Auto) (test code = 751-8) 4.8 2.1-6.9 [facility] CampusBlood lymphocytes count (number/volume) 2020-01-31 08:58:00* Test Item Value Reference Range Interpretation Comments Lymphocytes # (Auto) (test code = 13063-7) 1.2 1.0-3.2 [facility] CampusBlood monocytes automated count (number/volume)2020-01-31 08:58:00* Test Item Value Reference Range Interpretation Comments Monocytes # (Auto) (test code = 742-7) 0.6 0.2-0.8 [facility] CampusAutomated blood eosinophil count 2020-01-31 08:58:00* Test Item Value Reference Range Interpretation Comments Eosinophils # (Auto) (test code = 711-2) 0.3 0.0-0.4 [facility] CampusAutomated blood basophil count (count/volume)2020-01-31 08:58:00* Test Item Value Reference Range Interpretation Comments Basophils # (Auto) (test code = 704-7) 0.0 0.0-0.1 [facility] CampusFluoroscopic procedure less than one hour vxulkjep8739-94-49 08:58:00* Test Item Value Reference Range Interpretation Comments Absolute Immature Granulocyte (auto (inocente t code = Absolute Immature Granulocyte (auto) 0.07 0-0.1 [facility] CampusInfluenza Virus Types A,B Antigen 2019-12-01 16:02:00* Test Item Value Reference Range Interpretation Comments Influenza Virus Types A,B Antigen (test code = 40748-4) NEGATIVE NEGATIVE [facility] Hospitalodium Lkxou2109-89-56 15:28:00* Test Item Value Reference Range Interpretation Comments Sodium Level (test code = 2951-2) 132 136-145 L [facility] CampusPotassium Kxiig7527-71-22 15:28:00* Test Item Value Reference Range Interpretation Comments Potassium Level (test code = 2823-3) 4.2 3.5-5.1 [facility] CampusChloride Ihfha6010-45-83 15:28:00* Test Item Value Reference Range Interpretation Comments Chloride Level (test code = 2075-0) 96 98-107 L [facility] CampusCarbon Dioxide Ukuor5888-81-84 15:28:00* Test Item Value Reference Range Interpretation Comments Carbon Dioxide Level (test code = 2028-9) 27 22-29 [facility] CampusAnion Jze2817-41-42 15:28:00* Test Item Value Reference Range Interpretation Comments Anion Gap (test code = 30830-2) 13.2 8-16 [facility] CampusBlood Urea Kuxuutrh3121-53-95 15:28:00* Test Item Value Reference Range Interpretation Comments Blood Urea Nitrogen (test code = 3094-0) 17 7- [facility] CampusCreatinine2020-03-15 15:28:00* Test Item Value Reference Range Interpretation Comments Creatinine (test code = 2160-0) 0.98 0.57-1.11 [facility] CampusBUN/Creatinine Bsmta6439-11-89 15:28:00* Test Item Value Reference Range Interpretation Comments BUN/Creatinine Ratio (test code = 3097-3) 17 6- [facility] CampusEstimat Glomerular Filtration Rate 2019-12-01 15:28:00* Test Item Value Reference Range Interpretation Comments Estimat Glomerular Filtration Rate (test code = 668071032) 54 >60 L Ranges were taken from the National Kidney Disease Education Program and the [facility] literature.Reference ranges:60 or greater: Drijds03-38 ( for 3 consecutive months): Chronic kidney disease 15 or less: Kidney failureThe University of [facility] CampusGlucose Jzrmi4547-32-95 15:28:00* Test Item Value Reference Range Interpretation Comments Glucose Level (test code = IIC0580) 113 74-118 [facility] CampusCalcium Kiraw7637-58-61 15:28:00* Test Item Value Reference Range Interpretation Comments Calcium Level (test code = 57076-3) 10.2 8.4-10.2 [facility] CampusMagnesium Mhxun5424-51-06 15:28:00* Test Item Value Reference Range Interpretation Comments Magnesium Level (test code = 08033-9) 2.2 1.3-2.1 H [facility] [facility] CampusTotal Uqokiwpyh0517-13-88 15:28:00* Test Item Value Reference Range Interpretation Comments Total Bilirubin (test code = 1975-2) 0.4 0.2-1.2 [facility] CampusAspartate Amino Transf (AST/SGOT) 2019-12-01 15:28:00* Test Item Value Reference Range Interpretation Comments Aspartate Amino Transf (AST/SGOT) (test code = Aspartate Amino Transf (AST/SGOT)) 24 5-34 [facility] CampusAlanine Aminotransferase (ALT/SGPT) 2019-12-01 15:28:00* Test Item Value Reference Range Interpretation Comments Alanine Aminotransferase (ALT/SGPT) (test code = 1742-6) 25 0-55 [facility] CampusTotal Wxhzwuo5193-12-52 15:28:00* Test Item Value Reference Range Interpretation Comments Total Protein (test code = 2885-2) 8.5 6.5-8.1 H [facility] CampusAlbumin2020-03-15 15:28:00* Test Item Value Reference Range Interpretation Comments Albumin (test code = 1751-7) 4.7 3.5-5.0 [facility] CampusGlobulin2020-03-15 15:28:00* Test Item Value Reference Range Interpretation Comments Globulin (test code = 02723-4) 3.8 2.3-3.5 H [facility] CampusAlbumin/Globulin Kpwch3189-50-45 15:28:00 * Test Item Value Reference Range Interpretation Comments Albumin/Globulin Ratio (test code = 1759-0) 1.2 0.8-2.0 [facility] CampusAlkaline Vsrwlxqwxyl3451-06-03 15:28:00* Test Item Value Reference Range Interpretation Comments Alkaline Phosphatase (test code = 6768-6) 97 40-150 [facility] CampusCreatine Yupuhq2379-06-98 15:28:00* Test Item Value Reference Range Interpretation Comments Creatine Kinase (test code = 2157-6) 54 29-168 [facility] CampusCreatine Kinase FW7177-20-78 15:28:00* Test Item Value Reference Range Interpretation Comments Creatine Kinase MB (test code = 48056-0) 3.80 0-5.0 [facility] CampusTroponin [id number] 15:28:00* Test Item Value Reference Range Interpretation Comments Troponin I (test code = FUI7049) 0.014 0-0.300 [facility] CampusLipase2020-03-15 15:28:00* Test Item Value Reference Range Interpretation Comments Lipase (test code = 3040-3) 35 8-78 [facility] CampusInfluenza virus A and B antigen identification by tnlbrlnihcvgxgxfuz5799-76-58 15:22:00* Test Item Value Reference Range Interpretation Comments Influenza Virus Types A,B Antigen (test code = 27022-1) NEGATIVE NEGATIVE [facility] CampusInfluenza virus A and B antigen identification by vjcmnvipjnvzmvsomx4102-42-79 15:22:00* Test Item Value Reference Range Interpretation Comments Influenza Virus Types A,B Antigen (test code = 96545-7) NEGATIVE NEGATIVE [facility] CampusInfluenza virus A and B antigen identification by sjzpungdtxifgvmshq9398-22-40 15:22:00* Test Item Value Reference Range Interpretation Comments Influenza Virus Types A,B Antigen (test code = 74932-2) NEGATIVE NEGATIVE [facility] CampusInfluenza virus A and B antigen identification by edalqnyktndywnslhc8645-13-00 15:22:00* Test Item Value Reference Range Interpretation Comments Influenza Virus Types A,B Antigen (test code = 01672-4) NEGATIVE NEGATIVE [facility] CampusProthrombin Otol0984-52-67 15:12:00* Test Item Value Reference Range Interpretation Comments Prothrombin Time (test code = 5902-2) 12.3 11.9-14.5 [facility] CampusProthromb Time International Ratio 2019-12-01 15:12:00* Test Item Value Reference Range Interpretation Comments Prothromb Time International Ratio (test code = 6301-6) 0.87 Oral Anticoagulant Therapy INR Values:1. Low Intensity Therapy 1.5 - 2.02 . Moderate Intensity Therapy 2.0 - 3.03. High Intensity Therapy(1) 2.5 - 3. 54. High Intensity Therapy(2) 3.0 - 4.05. Panic Value INR > 5.0 [facility] CampusActivated Partial Thromboplast Time 2019-12-01 15:12:00* Test Item Value Reference Range Interpretation Comments Activated Partial Thromboplast Time (test code = 58899-8) 26.9 23.8-35.5 [facility] CampusUrine [id number] 15:11:00* Test Item Value Reference Range Interpretation Comments Urine WBC (test code = 5821-4) 0-5 0-5 [facility] CampusUrine RJZ3607-64-86 15:11:00* Test Item Value Reference Range Interpretation Comments Urine RBC (test code = 24154-7) 0-5 0-5 [facility] CampusUrine Lemfksuw5841-89-01 15:11:00* Test Item Value Reference Range Interpretation Comments Urine Bacteria (test code = 82528-2) RARE NONE [facility] CampusUrine Epithelial Wmvdn8585-56-04 15:11:00 * Test Item Value Reference Range Interpretation Comments Urine Epithelial Cells (test code = 62253-2) RARE NONE [facility] CampusUrine Chirj4491-37-16 15:06:00* Test Item Value Reference Range Interpretation Comments Urine Color (test code = 5778-6) YELLOW YELLOW [facility] CampusUrine Lbkqeuw3594-15-64 15:06:00* Test Item Value Reference Range Interpretation Comments Urine Clarity (test code = 92719-5) CLEAR CLEAR [facility] CampusUrine Specific Xjeoucw2911-49-22 15:06:00 * Test Item Value Reference Range Interpretation Comments Urine Specific Springer (test code = 5811-5) 1.020 1.010-1.02 5 [facility] CampusUrine tS0956-93-09 15:06:00* Test Item Value Reference Range Interpretation Comments Urine pH (test code = 58152-5) 7.5 5-7 [facility] CampusUrine Leukocyte Ezlfashn2256-85-64 15:06:00* Test Item Value Reference Range Interpretation Comments Urine Leukocyte Esterase (test code = 5799-2) NEGATIVE NEGATIVE [facility] CampusUrine Olujqzw5967-67-17 15:06:00* Test Item Value Reference Range Interpretation Comments Urine Nitrite (test code = 84659-9) NEGATIVE NEGATIVE [facility] CampusUrine Msslrtf3592-55-36 15:06:00* Test Item Value Reference Range Interpretation Comments Urine Protein (test code = 5804-0) NEGATIVE NEGATIVE [facility] CampusUrine Glucose (UA)2019-12-01 15:06:00* Test Item Value Reference Range Interpretation Comments Urine Glucose (UA) (test code = 2349-9) NEGATIVE NEGATIVE [facility] CampusUrine Byvqayz6917-08-56 15:06:00* Test Item Value Reference Range Interpretation Comments Urine Ketones (test code = 39418-5) NEGATIVE NEGATIVE [facility] CampusUrine Ksncnnkoaaed6852-90-56 15:06:00* Test Item Value Reference Range Interpretation Comments Urine Urobilinogen (test code = 18759-7) 0.2 0.2-1 [facility] CampusUrine Fcjifwwka9003-49-78 15:06:00* Test Item Value Reference Range Interpretation Comments Urine Bilirubin (test code = 1978-6) NEGATIVE NEGATIVE [facility] CampusUrine Xgbzd4326-76-33 15:06:00* Test Item Value Reference Range Interpretation Comments Urine Blood (test code = 17311-5) NEGATIVE NEGATIVE [facility] CampusWhite Blood Hxwop1434-92-29 15:00:00* Test Item Value Reference Range Interpretation Comments White Blood Count (test code = 6690-2) 10.68 4.8-10.8 [facility] CampusRed Blood Vytzb3360-48-79 15:00:00* Test Item Value Reference Range Interpretation Comments Red Blood Count (test code = 789-8) 4.95 3.6-5.1 [facility] CampusHemoglobin2020-03-15 15:00:00* Test Item Value Reference Range Interpretation Comments Hemoglobin (test code = 93776-0) 15.0 12.0-16.0 [facility] CampusHematocrit2020-03-15 15:00:00* Test Item Value Reference Range Interpretation Comments Hematocrit (test code = 4544-3) 44.5 34.2-44.1 H [facility] CampusMean Corpuscular Qizsnx1173-56-61 15:00:00* Test Item Value Reference Range Interpretation Comments Mean Corpuscular Volume (test code = 787-2) 89.9 81-99 [facility] CampusMean Corpuscular Buklbwsxqn6175-66-40 15:00:00* Test Item Value Reference Range Interpretation Comments Mean Corpuscular Hemoglobin (test code = 785-6) 30.3 28-32 [facility] CampusMean Corpuscular Hemoglobin Concent 2019-12-01 15:00:00* Test Item Value Reference Range Interpretation Comments Mean Corpuscular Hemoglobin Concent (test code = 786-4) 33.7 31-35 [facility] CampusRed Cell Distribution Sayxt6870-67-92 15:00:00* Test Item Value Reference Range Interpretation Comments Red Cell Distribution Width (test code = 91048-4) 13.0 11.7 -14.4 [facility] CampusPlatelet Ufxzu8834-51-97 15:00:00* Test Item Value Reference Range Interpretation Comments Platelet Count (test code = 777-3) 277 140-360 [facility] CampusNeutrophils (%) (Auto)2019-12-01 15:00:00 * Test Item Value Reference Range Interpretation Comments Neutrophils (%) (Auto) (test code = 41424-6) 86.8 38.7-80.0 H [facility] CampusLymphocytes (%) (Auto)2019-12-01 15:00:00 * Test Item Value Reference Range Interpretation Comments Lymphocytes (%) (Auto) (test code = 736-9) 7.3 18.0-39.1 L [facility] CampusMonocytes (%) (Auto)2019-12-01 15:00:00* Test Item Value Reference Range Interpretation Comments Monocytes (%) (Auto) (test code = 5905-5) 2.2 4.4-11.3 L [facility] CampusEosinophils (%) (Auto)2019-12-01 15:00:00 * Test Item Value Reference Range Interpretation Comments Eosinophils (%) (Auto) (test code = 713-8) 1.0 0.0-6.0 [facility] CampusBasophils (%) (Auto)2019-12-01 15:00:00* Test Item Value Reference Range Interpretation Comments Basophils (%) (Auto) (test code = 706-2) 0.4 0.0-1.0 [facility] CampusIM GRANULOCYTES %2019-12-01 15:00:00* Test Item Value Reference Range Interpretation Comments IM GRANULOCYTES % (test code = IM GRANULOCYTES %) 2.3 0.0- 1.0 H [facility] CampusNeutrophils # (Auto)2019-12-01 15:00:00* Test Item Value Reference Range Interpretation Comments Neutrophils # (Auto) (test code = 751-8) 9.3 2.1-6.9 H [facility] CampusLymphocytes # (Auto)2019-12-01 15:00:00* Test Item Value Reference Range Interpretation Comments Lymphocytes # (Auto) (test code = 46924-8) 0.8 1.0-3.2 L [facility] CampusMonocytes # (Auto)2019-12-01 15:00:00* Test Item Value Reference Range Interpretation Comments Monocytes # (Auto) (test code = 742-7) 0.2 0.2-0.8 [facility] CampusEosinophils # (Auto)2019-12-01 15:00:00* Test Item Value Reference Range Interpretation Comments Eosinophils # (Auto) (test code = 711-2) 0.1 0.0-0.4 [facility] CampusBasophils # (Auto)2019-12-01 15:00:00* Test Item Value Reference Range Interpretation Comments Basophils # (Auto) (test code = 704-7) 0.0 0.0-0.1 [facility] CampusAbsolute Immature Granulocyte (auto 2019-12-01 15:00:00* Test Item Value Reference Range Interpretation Comments Absolute Immature Granulocyte (auto (inocente t code = Absolute Immature Granulocyte (auto) 0.25 0-0.1 H [facility] CampusCT ABDOMEN/PELVIS [id number] 14:56:00 [facility] [address] [address] Patient Name: FRANK PERRY MR #: [id number] : 1930 Age/Sex: 89/F Req #: [id number] Adm Physician: Ordered by: LILIANA GARCIA MD Report #: [id number] Location: ER Room/Bed: Procedure: [id number] CT/CT ABDOMEN/PELVIS WO Exam Date: Exam Time: [...] (test code = 5778-6) YELLOW YELLOW [facility] CampusUrine jdantup1771-61-90 14:26:00* Test Item Value Reference Range Interpretation Comments Urine Clarity (test code = 37797-9) [facility] Test strip 2019-12-01 14:26:00* Test Item Value Reference Range Interpretation Comments Urine Specific Springer (test code = 5811-5) 1.020 1.010-1.02 5 [facility] CampusUrine pH measurement by automated test expbb6334-26-94 14:26:00* Test Item Value Reference Range Interpretation Comments Urine pH (test code = 77829-4) 7.5 5-7 [facility] CampusUrine leukocyte esterase detection by bvhovirb6143-06-36 14:26:00* Test Item Value Reference Range Interpretation Comments Urine Leukocyte Esterase (test code = 5799-2) NEGATIVE NEGATIVE [facility] CampusUrine nitrite lmyeydhyc9337-06-03 14:26:00* Test Item Value Reference Range Interpretation Comments Urine Nitrite (test code = 17217-5) NEGATIVE NEGATIVE [facility] CampusUrine protein measurement by test strip (mass/volume)2019-12-01 14:26:00* Test Item Value Reference Range Interpretation Comments Urine Protein (test code = 5804-0) NEGATIVE NEGATIVE [facility] CampusUrine glucose ouxfpahjn4637-22-54 14:26:00* Test Item Value Reference Range Interpretation Comments Urine Glucose (UA) (test code = 2349-9) NEGATIVE NEGATIVE [facility] CampusUrine ketones detection by automated test taazl3386-69-28 14:26:00* Test Item Value Reference Range Interpretation Comments Urine Ketones (test code = 04492-1) NEGATIVE NEGATIVE [facility] CampusUrine urobilinogen measurement by test strip (mass/volume)2019-12-01 14:26:00* Test Item Value Reference Range Interpretation Comments Urine Urobilinogen (test code = 67398-5) 0.2 0.2-1 [facility] CampusUrine total bilirubin measurement (mass/volume)2019-12-01 14:26:00* Test Item Value Reference Range Interpretation Comments Urine Bilirubin (test code = 1978-6) NEGATIVE NEGATIVE [facility] CampusUrine erythrocytes srgfnobit2904-14-33 14:26:00* Test Item Value Reference Range Interpretation Comments Urine Blood (test code = 04651-6) NEGATIVE NEGATIVE [facility] CampusAutomated urine sediment leukocyte count by microscopy (number/high power field)2019-12-01 14:26:00* Test Item Value Reference Range Interpretation Comments Urine WBC (test code = 5821-4) 0-5 0-5 [facility] CampusErythrocytes detection in urine sediment by light awczlqinvv2843-78-11 14:26:00* Test Item Value Reference Range Interpretation Comments Urine RBC (test code = 35566-5) 0-5 0-5 [facility] CampusBacteria detection in urine sediment by light axpathhxuy5621-63-28 14:26:00* Test Item Value Reference Range Interpretation Comments Urine Bacteria (test code = 95155-2) RARE NONE [facility] CampusEpithelial cells detection in urine sediment by light rsvtmqgpda5796-08-04 14:26:00* Test Item Value Reference Range Interpretation Comments Urine Epithelial Cells (test code = 49799-6) RARE NONE [facility] CampusUrine color cearrircenhrp8500-65-37 14:26:00* Test Item Value Reference Range Interpretation Comments Urine Color (test code = 5778-6) YELLOW YELLOW [facility] CampusUrine pifoypo3216-11-48 14:26:00* Test Item Value Reference Range Interpretation Comments Urine Clarity (test code = 82650-2) [facility]pecific [facility] Urine by Test strip 2019-12-01 14:26:00* Test Item Value Reference Range Interpretation Comments Urine Specific Springer (test code = 5811-5) 1.020 1.010-1.02 5 [facility] CampusUrine pH measurement by automated test uevmj0691-72-40 14:26:00* Test Item Value Reference Range Interpretation Comments Urine pH (test code = 01731-6) 7.5 5-7 [facility] CampusUrine leukocyte esterase detection by gwwzmvcb8534-90-38 14:26:00* Test Item Value Reference Range Interpretation Comments Urine Leukocyte Esterase (test code = 5799-2) NEGATIVE NEGATIVE [facility] CampusUrine nitrite xylnijwvg8180-83-04 14:26:00* Test Item Value Reference Range Interpretation Comments Urine Nitrite (test code = 73947-8) NEGATIVE NEGATIVE [facility] CampusUrine protein measurement by test strip (mass/volume)2019-12-01 14:26:00* Test Item Value Reference Range Interpretation Comments Urine Protein (test code = 5804-0) NEGATIVE NEGATIVE [facility] CampusUrine glucose niwzkddyw7886-65-87 14:26:00* Test Item Value Reference Range Interpretation Comments Urine Glucose (UA) (test code = 2349-9) NEGATIVE NEGATIVE [facility] CampusUrine ketones detection by automated test tkkik0355-70-56 14:26:00* Test Item Value Reference Range Interpretation Comments Urine Ketones (test code = 26372-3) NEGATIVE NEGATIVE [facility] CampusUrine urobilinogen measurement by test strip (mass/volume)2019-12-01 14:26:00* Test Item Value Reference Range Interpretation Comments Urine Urobilinogen (test code = 40410-0) 0.2 0.2-1 [facility] CampusUrine total bilirubin measurement (mass/volume)2019-12-01 14:26:00* Test Item Value Reference Range Interpretation Comments Urine Bilirubin (test code = 1978-6) NEGATIVE NEGATIVE [facility] CampusUrine erythrocytes hoiizxgre8450-89-26 14:26:00* Test Item Value Reference Range Interpretation Comments Urine Blood (test code = 83983-3) NEGATIVE NEGATIVE [facility] CampusAutomated urine sediment leukocyte count by microscopy (number/high power field)2019-12-01 14:26:00* Test Item Value Reference Range Interpretation Comments Urine WBC (test code = 5821-4) 0-5 0-5 [facility] CampusErythrocytes detection in urine sediment by light reswqvnlux7991-14-44 14:26:00* Test Item Value Reference Range Interpretation Comments Urine RBC (test code = 86616-6) 0-5 0-5 [facility] CampusBacteria detection in urine sediment by light npcipivcvm3414-58-07 14:26:00* Test Item Value Reference Range Interpretation Comments Urine Bacteria (test code = 92512-8) RARE NONE [facility] CampusEpithelial cells detection in urine sediment by light cfcjzxlkga5023-07-78 14:26:00* Test Item Value Reference Range Interpretation Comments Urine Epithelial Cells (test code = 16580-2) RARE NONE [facility] CampusFluoroscopic procedure less than one hour ghrqvpvx9228-26-66 14:23:00* Test Item Value Reference Range Interpretation Comments Differential Total Cells Counted (test code = Kamryn tial Total Cells Counted) 100 [facility]ual [facility]100 leukocytes 2019-12-01 14:23:00* Test Item Value Reference Range Interpretation Comments Neutrophils % (Manual) (test code = 06529-9) 92 40-74 [facility] blood lymphocytes/100 leukocytes 2019-12-01 14:23:00* Test Item Value Reference Range Interpretation Comments Lymphocytes % (Manual) (test code = 737-7) 7 19-48 [facility] blood monocytes/100 leukocytes 2019-12-01 14:23:00* Test Item Value Reference Range Interpretation Comments Monocytes % (Manual) (test code = 744-3) 1 3.4-9.0 [facility] CampusBlood platelets count by estimate (number/volume)2019-12-01 14:23:00* Test Item Value Reference Range Interpretation Comments Platelet Estimate (test code = 29830-8) ADEQUATE [facility] CampusPlatelet jujzpamkjj7285-04-76 14:23:00* Test Item Value Reference Range Interpretation Comments Platelet Morphology Comment (test code = 78087-0) NORMAL [facility] CampusRB ezxydhmxjj7720-37-31 14:23:00* Test Item Value Reference Range Interpretation Comments Red Cell Morphology Comment (test code = 6742-1) NORMAL [facility] CampusProthrombin time (PT) in platelet poor plasma by coagulation eihgd4514-64-74 14:23:00* Test Item Value Reference Range Interpretation Comments Prothrombin Time (test code = 5902-2) 12.3 11.9-14.5 [facility] CampusINR in Platelet poor plasma by Coagulation jcudm5359-90-45 14:23:00* Test Item Value Reference Range Interpretation Comments Prothromb Time International Ratio (test code = 6301-6) 0.87 Oral Anticoagulant Therapy INR Values:1. Low Intensity Therapy 1.5 - 2.02 . Moderate Intensity Therapy 2.0 - 3.03. High Intensity Therapy(1) 2.5 - 3. 54. High Intensity Therapy(2) 3.0 - 4.05. Panic Value INR > 5.0 [facility] CampusActivated partial thromboplastin time (aPTT) in platelet poor plasma by coagulation nvcvy9125-62-00 14:23:00* Test Item Value Reference Range Interpretation Comments Activated Partial Thromboplast Time (test code = 94284-9) 26.9 23.8-35.5 [facility]er[facility] plasma sodium measurement (moles/volume)2019-12-01 14:23:00* Test Item Value Reference Range Interpretation Comments Sodium Level (test code = 2951-2) 132 136-145 [facility]er[facility] plasma potassium measurement (moles/volume)2019-12-01 14:23:00* Test Item Value Reference Range Interpretation Comments Potassium Level (test code = 2823-3) 4.2 3.5-5.1 [facility] plasma chloride measurement (moles/volume)2019-12-01 14:23:00* Test Item Value Reference Range Interpretation Comments Chloride Level (test code = 2075-0) 96 98-107 [facility]erum [facility] plasma carbon dioxide, total measurement (moles/volume)2019-12-01 14:23:00* Test Item Value Reference Range Interpretation Comments Carbon Dioxide Level (test code = 2028-9) 27 22-29 [facility]erum or plasma anion eng7868-17-56 14:23:00* Test Item Value Reference Range Interpretation Comments Anion Gap (test code = 52645-7) 13.2 8-16 [facility]er[facility] plasma urea nitrogen measurement (mass/volume)2019-12-01 14:23:00* Test Item Value Reference Range Interpretation Comments Blood Urea Nitrogen (test code = 3094-0) 17 7-26 [facility]erum or plasma creatinine measurement (mass/volume)2019-12-01 14:23:00* Test Item Value Reference Range Interpretation Comments Creatinine (test code = 2160-0) 0.98 0.57-1.11 [facility] urea nitrogen/creatinine mass gdrhl0757-22-75 14:23:00* Test Item Value Reference Range Interpretation Comments BUN/Creatinine Ratio (test code = 3097-3) 17 6-25 [facility] CampusEstimated glomerular filtration rate (GFR) qoxektgvywmaw6465-47-58 14:23:00* Test Item Value Reference Range Interpretation Comments Estimat Glomerular Filtration Rate (test code = 439572791) 54 >60 Ranges were taken from the National Kidney Disease Education Program and the [facility] literature.Reference ranges:60 or greater: Erihjk45-10 ( for 3 consecutive months): Chronic kidney disease 15 or less: Kidney failureThe [facility] CampusGlucose hqihocnkarq8455-69-80 14:23:00* Test Item Value Reference Range Interpretation Comments Glucose Level (test code = RAL1651) 113 74-118 [facility] calcium measurement (mass/volume)2019-12-01 14:23:00* Test Item Value Reference Range Interpretation Comments Calcium Level (test code = 61228-7) 10.2 8.4-10.2 [facility] magnesium measurement (mass/volume)2019-12-01 14:23:00* Test Item Value Reference Range Interpretation Comments Magnesium Level (test code = 86944-8) 2.2 1.3-2.1 [facility] total bilirubin measurement (mass/volume)2019-12-01 14:23:00* Test Item Value Reference Range Interpretation Comments Total Bilirubin (test code = 1975-2) 0.4 0.2-1.2 [facility] CampusFluoroscopic procedure less than one hour yijpcdfs5764-36-52 14:23:00* Test Item Value Reference Range Interpretation Comments Aspartate Amino Transf (AST/SGOT) (test code = Aspartate Amino Transf (AST/SGOT)) 24 5-34 [facility] alanine aminotransferase measurement (enzymatic activity/volume)2019-12-01 14:23:00* Test Item Value Reference Range Interpretation Comments Alanine Aminotransferase (ALT/SGPT) (test code = 1742-6) 25 0-55 [facility] protein measurement (mass/volume)2019-12-01 14:23:00* Test Item Value Reference Range Interpretation Comments Total Protein (test code = 2885-2) 8.5 6.5-8.1 [facility] albumin measurement (mass/volume)2019-12-01 14:23:00* Test Item Value Reference Range Interpretation Comments Albumin (test code = 1751-7) 4.7 3.5-5.0 [facility] CampusPlasma globulin measurement (mass/volume) 2019-12-01 14:23:00* Test Item Value Reference Range Interpretation Comments Globulin (test code = 47969-9) 3.8 2.3-3.5 [facility] albumin/globulin mass jekhz6243-22-24 14:23:00* Test Item Value Reference Range Interpretation Comments Albumin/Globulin Ratio (test code = 1759-0) 1.2 0.8-2.0 [facility] alkaline phosphatase measurement (enzymatic activity/volume)2019-12-01 14:23:00* Test Item Value Reference Range Interpretation Comments Alkaline Phosphatase (test code = 6768-6) 97 40-150 [facility] CampusBNP Frk-cJwj5205-14-15 14:23:00* Test Item Value Reference Range Interpretation Comments B-Type Natriuretic Peptide (test code = 08142-1) 148.2 0-100 [facility] creatine kinase measurement (enzymatic activity/volume)2019-12-01 14:23:00* Test Item Value Reference Range Interpretation Comments Creatine Kinase (test code = 2157-6) 54 29-168 [facility] plasma creatine kinase MB measurement (mass/volume)2019-12-01 14:23:00* Test Item Value Reference Range Interpretation Comments Creatine Kinase MB (test code = 64072-9) 3.80 0-5.0 [facility] CampusTroponin I measurement by highly sensitive enzyme cvauengtnot8032-05-10 14:23:00* Test Item Value Reference Range Interpretation Comments Troponin I (test code = 97620-6) 0.014 0-0.300 [facility] lipase measurement (enzymatic activity/volume)2019-12-01 14:23:00* Test Item Value Reference Range Interpretation Comments Lipase (test code = 3040-3) 35 8-78 [facility] CampusFluoroscopic procedure less than one hour oprmqlmp0051-61-94 14:23:00* Test Item Value Reference Range Interpretation Comments Differential Total Cells Counted (test code = Kamryn tial Total Cells Counted) 100 [facility] CampusManual blood neutrophils/100 leukocytes 2019-12-01 14:23:00* Test Item Value Reference Range Interpretation Comments Neutrophils % (Manual) (test code = 31494-3) 92 40-74 [facility]ual [facility] leukocytes 2019-12-01 14:23:00* Test Item Value Reference Range Interpretation Comments Lymphocytes % (Manual) (test code = 737-7) 7 19-48 [facility] blood monocytes/100 leukocytes 2019-12-01 14:23:00* Test Item Value Reference Range Interpretation Comments Monocytes % (Manual) (test code = 744-3) 1 3.4-9.0 [facility] CampusBlood platelets count by estimate (number/volume)2019-12-01 14:23:00* Test Item Value Reference Range Interpretation Comments Platelet Estimate (test code = 41289-8) ADEQUATE [facility] CampusPlatelet lasejfocsq1366-89-04 14:23:00* Test Item Value Reference Range Interpretation Comments Platelet Morphology Comment (test code = 79896-9) NORMAL [facility] CampusRB nnhppnaqkj4564-63-49 14:23:00* Test Item Value Reference Range Interpretation Comments Red Cell Morphology Comment (test code = 6742-1) NORMAL [facility] CampusProthrombin time (PT) in platelet poor plasma by coagulation nlsrv7461-97-67 14:23:00* Test Item Value Reference Range Interpretation Comments Prothrombin Time (test code = 5902-2) 12.3 11.9-14.5 [facility] CampusINR in Platelet poor plasma by Coagulation dybay0360-52-77 14:23:00* Test Item Value Reference Range Interpretation Comments Prothromb Time International Ratio (test code = 6301-6) 0.87 Oral Anticoagulant Therapy INR Values:1. Low Intensity Therapy 1.5 - 2.02 . Moderate Intensity Therapy 2.0 - 3.03. High Intensity Therapy(1) 2.5 - 3. 54. High Intensity Therapy(2) 3.0 - 4.05. Panic Value INR > 5.0 [facility] CampusActivated partial thromboplastin time (aPTT) in platelet poor plasma by coagulation zvolg7189-49-82 14:23:00* Test Item Value Reference Range Interpretation Comments Activated Partial Thromboplast Time (test code = 56437-1) 26.9 23.8-35.5 [facility] sodium measurement (moles/volume)2019-12-01 14:23:00* Test Item Value Reference Range Interpretation Comments Sodium Level (test code = 2951-2) 132 136-145 [facility] potassium measurement (moles/volume)2019-12-01 14:23:00* Test Item Value Reference Range Interpretation Comments Potassium Level (test code = 2823-3) 4.2 3.5-5.1 [facility] plasma chloride measurement (moles/volume)2019-12-01 14:23:00* Test Item Value Reference Range Interpretation Comments Chloride Level (test code = 2075-0) 96 98-107 [facility] plasma carbon dioxide, total measurement (moles/volume)2019-12-01 14:23:00* Test Item Value Reference Range Interpretation Comments Carbon Dioxide Level (test code = 2028-9) 27 22-29 [facility]er[facility] plasma anion kye0780-94-66 14:23:00* Test Item Value Reference Range Interpretation Comments Anion Gap (test code = 89896-0) 13.2 8-16 [facility] urea nitrogen measurement (mass/volume)2019-12-01 14:23:00* Test Item Value Reference Range Interpretation Comments Blood Urea Nitrogen (test code = 3094-0) 17 7-26 [facility] creatinine measurement (mass/volume)2019-12-01 14:23:00* Test Item Value Reference Range Interpretation Comments Creatinine (test code = 2160-0) 0.98 0.57-1.11 [facility] urea nitrogen/creatinine mass qwtnh8455-27-05 14:23:00* Test Item Value Reference Range Interpretation Comments BUN/Creatinine Ratio (test code = 3097-3) 17 6-25 [facility] CampusEstimated glomerular filtration rate (GFR) lkprwaxoapfnf8945-88-83 14:23:00* Test Item Value Reference Range Interpretation Comments Estimat Glomerular Filtration Rate (test code = 121764079) 54 >60 Ranges were taken from the National Kidney Disease Education Program and the [facility] Kidney Foundation literature.Reference ranges:60 or greater: Obbngb86-94 ( for 3 consecutive months): Chronic kidney disease 15 or less: Kidney failureThe [facility] of [facility] CampusGlucose myczyiszqvs2393-52-59 14:23:00* Test Item Value Reference Range Interpretation Comments Glucose Level (test code = CFT1566) 113 74-118 [facility] calcium measurement (mass/volume)2019-12-01 14:23:00* Test Item Value Reference Range Interpretation Comments Calcium Level (test code = 41822-5) 10.2 8.4-10.2 [facility] magnesium measurement (mass/volume)2019-12-01 14:23:00* Test Item Value Reference Range Interpretation Comments Magnesium Level (test code = 24583-2) 2.2 1.3-2.1 [facility] plasma total bilirubin measurement (mass/volume)2019-12-01 14:23:00* Test Item Value Reference Range Interpretation Comments Total Bilirubin (test code = 1975-2) 0.4 0.2-1.2 [facility] CampusFluoroscopic procedure less than one hour wdavgadr9630-95-53 14:23:00* Test Item Value Reference Range Interpretation Comments Aspartate Amino Transf (AST/SGOT) (test code = Aspartate Amino Transf (AST/SGOT)) 24 5-34 [facility] alanine aminotransferase measurement (enzymatic activity/volume)2019-12-01 14:23:00* Test Item Value Reference Range Interpretation Comments Alanine Aminotransferase (ALT/SGPT) (test code = 1742-6) 25 0-55 [facility] protein measurement (mass/volume)2019-12-01 14:23:00* Test Item Value Reference Range Interpretation Comments Total Protein (test code = 2885-2) 8.5 6.5-8.1 [facility] albumin measurement (mass/volume)2019-12-01 14:23:00* Test Item Value Reference Range Interpretation Comments Albumin (test code = 1751-7) 4.7 3.5-5.0 [facility] CampusPlasma globulin measurement (mass/volume) 2019-12-01 14:23:00* Test Item Value Reference Range Interpretation Comments Globulin (test code = 94506-4) 3.8 2.3-3.5 [facility] albumin/globulin mass oihul5351-16-14 14:23:00* Test Item Value Reference Range Interpretation Comments Albumin/Globulin Ratio (test code = 1759-0) 1.2 0.8-2.0 [facility] alkaline phosphatase measurement (enzymatic activity/volume)2019-12-01 14:23:00* Test Item Value Reference Range Interpretation Comments Alkaline Phosphatase (test code = 6768-6) 97 40-150 [facility] CampusBNP Qxq-nXyt2676-74-15 14:23:00* Test Item Value Reference Range Interpretation Comments B-Type Natriuretic Peptide (test code = 26956-0) 148.2 0-100 [facility] plasma creatine kinase measurement (enzymatic activity/volume)2019-12-01 14:23:00* Test Item Value Reference Range Interpretation Comments Creatine Kinase (test code = 2157-6) 54 29-168 [facility]er[facility] plasma creatine kinase MB measurement (mass/volume)2019-12-01 14:23:00* Test Item Value Reference Range Interpretation Comments Creatine Kinase MB (test code = 90364-4) 3.80 0-5.0 [facility] CampusTroponin I measurement by highly sensitive enzyme bkmmqswxbxu5616-70-34 14:23:00* Test Item Value Reference Range Interpretation Comments Troponin I (test code = 67919-3) 0.014 0-0.300 [facility] lipase measurement (enzymatic activity/volume)2019-12-01 14:23:00* Test Item Value Reference Range Interpretation Comments Lipase (test code = 3040-3) 35 8-78 [facility] CampusBlood platelets count by estimate (number/volume)2019-12-01 14:23:00* Test Item Value Reference Range Interpretation Comments Platelet Estimate (test code = 14751-8) ADEQUATE [facility] CampusPlatelet kcpcmjyiwh7357-42-18 14:23:00* Test Item Value Reference Range Interpretation Comments Platelet Morphology Comment (test code = 49570-5) NORMAL [facility] cqkxkukzxc1070-99-07 14:23:00* Test Item Value Reference Range Interpretation Comments Red Cell Morphology Comment (test code = 6742-1) NORMAL [facility]-zXex2273-79-40 14:23:00* Test Item Value Reference Range Interpretation Comments B-Type Natriuretic Peptide (test code = 57582-3) 148.2 0-100 [facility] plasma lipase measurement (enzymatic activity/volume)2019-12-01 14:23:00* Test Item Value Reference Range Interpretation Comments Lipase (test code = 3040-3) 35 8-78 [facility] CampusBlood platelets count by estimate (number/volume)2019-12-01 14:23:00* Test Item Value Reference Range Interpretation Comments Platelet Estimate (test code = 55230-8) ADEQUATE [facility] CampusPlatelet mmxxevqrkg2378-12-68 14:23:00* Test Item Value Reference Range Interpretation Comments Platelet Morphology Comment (test code = 62958-3) NORMAL [facility] pxglbfolfe7373-36-06 14:23:00* Test Item Value Reference Range Interpretation Comments Red Cell Morphology Comment (test code = 6742-1) NORMAL [facility]-yOuu0273-51-47 14:23:00* Test Item Value Reference Range Interpretation Comments B-Type Natriuretic Peptide (test code = 23794-1) 148.2 0-100 [facility] lipase measurement (enzymatic activity/volume)2019-12-01 14:23:00* Test Item Value Reference Range Interpretation Comments Lipase (test code = 3040-3) 35 8-78 [facility] CampusCHEST 2 PMFOF4545-83-78 12:06:00 [facility] [address] [address] Patient Name: FRANK PERRY MR #: [id number] : 1930 Age/Sex: 89/F Req #: [id number] Adm Physician: Ordered by: LILIANA GARCIA MD Report #: [id number] Location: ER Room/Bed: Procedure: [id number] DX/CH EST 2 VIEWS Exam Date: 11/30/19 [...] Moore on 11/30/2019 12:09 PM Dictated By: BOY KINNEY MD 08 Transcribed By: ROLO on 1208 COPY TO: LILIANA GARCIA MD B-Type Natriuretic Peptide 2019-11-30 11:04:00* Test Item Value Reference Range Interpretation Comments B-Type Natriuretic Peptide (test code = 52114-7) 382.2 0-100 H [facility] CampusB-Type Natriuretic Ckdjgsb3012-69-15 11:04:00* Test Item Value Reference Range Interpretation Comments B-Type Natriuretic Peptide (test code = 61046-3) 382.2 0-100 H [facility] CampusCreatine Kinase VH4996-97-23 11:03:00* Test Item Value Reference Range Interpretation Comments Creatine Kinase MB (test code = 57089-6) 4.30 0-5.0 [facility] CampusTroponin R9764-60-27 11:03:00* Test Item Value Reference Range Interpretation Comments Troponin I (test code = CWU7049) 0.010 0-0.300 [facility] CampusProthrombin Rftr3408-73-04 10:57:00* Test Item Value Reference Range Interpretation Comments Prothrombin Time (test code = 5902-2) 12.4 11.9-14.5 [facility] CampusProthromb Time International Ratio 2019-11-30 10:57:00* Test Item Value Reference Range Interpretation Comments Prothromb Time International Ratio (test code = 6301-6) 0.88 Oral Anticoagulant Therapy INR Values:1. Low Intensity Therapy 1.5 - 2.02 . Moderate Intensity Therapy 2.0 - 3.03. High Intensity Therapy(1) 2.5 - 3. 54. High Intensity Therapy(2) 3.0 - 4.05. Panic Value INR > 5.0 [facility] CampusActivated Partial Thromboplast Time 2019-11-30 10:57:00* Test Item Value Reference Range Interpretation Comments Activated Partial Thromboplast Time (test code = 78188-5) 26.4 23.8-35.5 [facility]odium Wfsvl4067-11-08 10:57:00* Test Item Value Reference Range Interpretation Comments Sodium Level (test code = 2951-2) 131 136-145 L [facility] CampusPotassium Pyedb7489-90-85 10:57:00* Test Item Value Reference Range Interpretation Comments Potassium Level (test code = 2823-3) 4.3 3.5-5.1 [facility] CampusChloride Nyias6816-90-46 10:57:00* Test Item Value Reference Range Interpretation Comments Chloride Level (test code = 2075-0) 97 98-107 L [facility] CampusCarbon Dioxide Oftrx8424-23-00 10:57:00* Test Item Value Reference Range Interpretation Comments Carbon Dioxide Level (test code = 2028-9) 28 22-29 [facility] CampusAnion Cye3759-79-56 10:57:00* Test Item Value Reference Range Interpretation Comments Anion Gap (test code = 10632-6) 10.3 8-16 [facility] CampusBlood Urea Svjqpmrz7613-25-64 10:57:00* Test Item Value Reference Range Interpretation Comments Blood Urea Nitrogen (test code = 3094-0) 18 7-26 [facility] CampusCreatinine2020-03-14 10:57:00* Test Item Value Reference Range Interpretation Comments Creatinine (test code = 2160-0) 1.00 0.57-1.11 [facility] CampusBUN/Creatinine Iwkhb4870-51-68 10:57:00* Test Item Value Reference Range Interpretation Comments BUN/Creatinine Ratio (test code = 3097-3) 18 6-25 [facility] CampusEstimat Glomerular Filtration Rate 2019-11-30 10:57:00* Test Item Value Reference Range Interpretation Comments Estimat Glomerular Filtration Rate (test code = 308576265) 52 >60 L Ranges were taken from the National Kidney Disease Education Program and the [facility] literature.Reference ranges:60 or greater: Crvoyv29-37 ( for 3 consecutive months): Chronic kidney disease 15 or less: Kidney failureThe [facility] of [facility] CampusGlucose Vrpec6744-69-56 10:57:00* Test Item Value Reference Range Interpretation Comments Glucose Level (test code = DCP1438) 94 74-118 [facility] CampusCalcium Adiuc7402-55-39 10:57:00* Test Item Value Reference Range Interpretation Comments Calcium Level (test code = 81700-6) 10.1 8.4-10.2 [facility] CampusMagnesium Bbjvs4561-59-55 10:57:00* Test Item Value Reference Range Interpretation Comments Magnesium Level (test code = 04350-9) 2.1 1.3-2.1 [facility] CampusTotal Tsatwyhis8518-94-77 10:57:00* Test Item Value Reference Range Interpretation Comments Total Bilirubin (test code = 1975-2) 0.4 0.2-1.2 [facility] CampusAspartate Amino Transf (AST/SGOT) 2019-11-30 10:57:00* Test Item Value Reference Range Interpretation Comments Aspartate Amino Transf (AST/SGOT) (test code = Aspartate Amino Transf (AST/SGOT)) 22 5-34 [facility] CampusAlanine Aminotransferase (ALT/SGPT) 2019-11-30 10:57:00* Test Item Value Reference Range Interpretation Comments Alanine Aminotransferase (ALT/SGPT) (test code = 1742-6) 18 0-55 [facility] CampusTotal Hzrhpum1856-11-86 10:57:00* Test Item Value Reference Range Interpretation Comments Total Protein (test code = 2885-2) 7.4 6.5-8.1 [facility] CampusAlbumin2020-03-14 10:57:00* Test Item Value Reference Range Interpretation Comments Albumin (test code = 1751-7) 4.2 3.5-5.0 [facility] CampusGlobulin2020-03-14 10:57:00* Test Item Value Reference Range Interpretation Comments Globulin (test code = 44219-9) 3.2 2.3-3.5 [facility] CampusAlbumin/Globulin Qfsws8497-97-98 10:57:00 * Test Item Value Reference Range Interpretation Comments Albumin/Globulin Ratio (test code = 1759-0) 1.3 0.8-2.0 [facility] CampusAlkaline Dgbsibeealx5887-30-31 10:57:00* Test Item Value Reference Range Interpretation Comments Alkaline Phosphatase (test code = 6768-6) 79 40-150 [facility] CampusCreatine Ndnoae0423-38-13 10:57:00* Test Item Value Reference Range Interpretation Comments Creatine Kinase (test code = 2157-6) 77 29-168 [facility] CampusUrine YMK3129-03-47 10:56:00* Test Item Value Reference Range Interpretation Comments Urine WBC (test code = 5821-4) 11-20 0-5 H [facility] CampusUrine XAW2043-24-17 10:56:00* Test Item Value Reference Range Interpretation Comments Urine RBC (test code = 18674-9) 6-10 0-5 H [facility] CampusUrine Dswmewaj5928-82-14 10:56:00* Test Item Value Reference Range Interpretation Comments Urine Bacteria (test code = 64403-3) RARE NONE [facility] CampusUrine Epithelial Immhi7396-01-60 10:56:00 * Test Item Value Reference Range Interpretation Comments Urine Epithelial Cells (test code = 32973-1) FEW NONE [facility] CampusCT BRAIN ZG9898-95-16 10:53:00 [facility] [address] [address] Patient Name: FRANK PERRY MR #: [id number] : 1930 Age/Sex: 89/F Req #: [id number] Adm Physician: Ordered by: LILIANA GARCIA MD Report #: [id number] Location: Room/Bed: Procedure: [id number] CT/CT BRAIN WO Exam Date: 11/30/19 Exam [...] 1056 COPY TO: LILIANA GARCIA MD Urine Fqqhw6732-09-39 10:45:00* Test Item Value Reference Range Interpretation Comments Urine Color (test code = 5778-6) YELLOW YELLOW [facility] CampusUrine Nfprint3574-40-22 10:45:00* Test Item Value Reference Range Interpretation Comments Urine Clarity (test code = 93549-9) CLEAR CLEAR [facility] CampusUrine Specific Efpmejd1932-39-37 10:45:00 * Test Item Value Reference Range Interpretation Comments Urine Specific Springer (test code = 5811-5) 1.025 1.010-1.02 5 [facility] CampusUrine wW6645-81-84 10:45:00* Test Item Value Reference Range Interpretation Comments Urine pH (test code = 02604-8) 7 5-7 [facility] CampusUrine Leukocyte Kbzqkuur1048-56-62 10:45:00* Test Item Value Reference Range Interpretation Comments Urine Leukocyte Esterase (test code = 5799-2) TRACE NEGATIVE H [facility] Mrjnmay9442-52-16 10:45:00* Test Item Value Reference Range Interpretation Comments Urine Nitrite (test code = 08243-3) NEGATIVE NEGATIVE [facility] Lohpwjm1441-53-23 10:45:00* Test Item Value Reference Range Interpretation Comments Urine Protein (test code = 5804-0) NEGATIVE NEGATIVE [facility] Glucose (UA)2019-11-30 10:45:00* Test Item Value Reference Range Interpretation Comments Urine Glucose (UA) (test code = 2349-9) NEGATIVE NEGATIVE [facility] CampusUrine Wfbnuef4979-14-06 10:45:00* Test Item Value Reference Range Interpretation Comments Urine Ketones (test code = 16107-1) NEGATIVE NEGATIVE [facility] Nbuzolizclbi1617-44-20 10:45:00* Test Item Value Reference Range Interpretation Comments Urine Urobilinogen (test code = 23289-0) 0.2 0.2-1 [facility] CampusUrine Vgorzsuzx1266-20-44 10:45:00* Test Item Value Reference Range Interpretation Comments Urine Bilirubin (test code = 1978-6) NEGATIVE NEGATIVE [facility] CampusUrine Slhhy0212-64-09 10:45:00* Test Item Value Reference Range Interpretation Comments Urine Blood (test code = 06548-5) TRACE NEGATIVE H [facility] CampusWhite Blood Zbgls5753-53-78 10:41:00* Test Item Value Reference Range Interpretation Comments White Blood Count (test code = 6690-2) 13.01 4.8-10.8 H [facility] CampusRed Blood Qtore5220-35-87 10:41:00* Test Item Value Reference Range Interpretation Comments Red Blood Count (test code = 789-8) 4.45 3.6-5.1 [facility] CampusHemoglobin2020-03-14 10:41:00* Test Item Value Reference Range Interpretation Comments Hemoglobin (test code = 68803-5) 13.4 12.0-16.0 [facility] CampusHematocrit2020-03-14 10:41:00* Test Item Value Reference Range Interpretation Comments Hematocrit (test code = 4544-3) 39.9 34.2-44.1 [facility] CampusMean Corpuscular Rscknl8427-28-06 10:41:00* Test Item Value Reference Range Interpretation Comments Mean Corpuscular Volume (test code = 787-2) 89.7 81-99 [facility] CampusMean Corpuscular Mipphgbquz9323-62-30 10:41:00* Test Item Value Reference Range Interpretation Comments Mean Corpuscular Hemoglobin (test code = 785-6) 30.1 28-32 [facility] CampusMean Corpuscular Hemoglobin Concent 2019-11-30 10:41:00* Test Item Value Reference Range Interpretation Comments Mean Corpuscular Hemoglobin Concent (test code = 786-4) 33.6 31-35 [facility] CampusRed Cell Distribution Pxebn6947-16-17 10:41:00* Test Item Value Reference Range Interpretation Comments Red Cell Distribution Width (test code = 46004-1) 13.1 11.7 -14.4 [facility] CampusPlatelet Ytukg1733-05-13 10:41:00* Test Item Value Reference Range Interpretation Comments Platelet Count (test code = 777-3) 257 140-360 [facility] CampusNeutrophils (%) (Auto)2019-11-30 10:41:00 * Test Item Value Reference Range Interpretation Comments Neutrophils (%) (Auto) (test code = 08261-5) 87.3 38.7-80.0 H [facility] CampusLymphocytes (%) (Auto)2019-11-30 10:41:00 * Test Item Value Reference Range Interpretation Comments Lymphocytes (%) (Auto) (test code = 736-9) 6.7 18.0-39.1 L [facility] CampusMonocytes (%) (Auto)2019-11-30 10:41:00* Test Item Value Reference Range Interpretation Comments Monocytes (%) (Auto) (test code = 5905-5) 5.1 4.4-11.3 [facility] CampusEosinophils (%) (Auto)2019-11-30 10:41:00 * Test Item Value Reference Range Interpretation Comments Eosinophils (%) (Auto) (test code = 713-8) 0.0 0.0-6.0 [facility] CampusBasophils (%) (Auto)2019-11-30 10:41:00* Test Item Value Reference Range Interpretation Comments Basophils (%) (Auto) (test code = 706-2) 0.1 0.0-1.0 [facility] CampusIM GRANULOCYTES %2019-11-30 10:41:00* Test Item Value Reference Range Interpretation Comments IM GRANULOCYTES % (test code = IM GRANULOCYTES %) 0.8 0.0- 1.0 [facility] CampusNeutrophils # (Auto)2019-11-30 10:41:00* Test Item Value Reference Range Interpretation Comments Neutrophils # (Auto) (test code = 751-8) 11.4 2.1-6.9 H [facility] CampusLymphocytes # (Auto)2019-11-30 10:41:00* Test Item Value Reference Range Interpretation Comments Lymphocytes # (Auto) (test code = 23459-8) 0.9 1.0-3.2 L [facility] CampusMonocytes # (Auto)2019-11-30 10:41:00* Test Item Value Reference Range Interpretation Comments Monocytes # (Auto) (test code = 742-7) 0.7 0.2-0.8 [facility] CampusEosinophils # (Auto)2019-11-30 10:41:00* Test Item Value Reference Range Interpretation Comments Eosinophils # (Auto) (test code = 711-2) 0.0 0.0-0.4 [facility] CampusBasophils # (Auto)2019-11-30 10:41:00* Test Item Value Reference Range Interpretation Comments Basophils # (Auto) (test code = 704-7) 0.0 0.0-0.1 [facility] CampusAbsolute Immature Granulocyte (auto 2019-11-30 10:41:00* Test Item Value Reference Range Interpretation Comments Absolute Immature Granulocyte (auto (inocente t code = Absolute Immature Granulocyte (auto) 0.11 0-0.1 H [facility] CampusUrine Nzlxgxs2157-21-63 09:40:00* Test Item Value Reference Range Interpretation Comments Urine Culture (test code = 630-4) No Result Data Provided [facility] CampusUrine Zexqreu2904-89-56 09:40:00* Test Item Value Reference Range Interpretation Comments Urine Culture (test code = 630-4) No Result Data Provided [facility] CampusCreatine Kinase [id number] 15:26:00* Test Item Value Reference Range Interpretation Comments Creatine Kinase MB (test code = 37888-5) 3.70 0-5.0 [facility] CampusTroponin [id number] 15:26:00* Test Item Value Reference Range Interpretation Comments Troponin I (test code = SJV9101) 0.017 0-0.300 [facility] Yulkt5008-24-94 14:52:00* Test Item Value Reference Range Interpretation Comments Sodium Level (test code = 2951-2) 135 136-145 L [facility] CampusPotassium Wamhl9457-34-44 14:52:00* Test Item Value Reference Range Interpretation Comments Potassium Level (test code = 2823-3) 4.1 3.5-5.1 [facility] CampusChloride Rarbf4584-75-63 14:52:00* Test Item Value Reference Range Interpretation Comments Chloride Level (test code = 2075-0) 97 98-107 L [facility] CampusCarbon Dioxide Cagmj9286-62-57 14:52:00* Test Item Value Reference Range Interpretation Comments Carbon Dioxide Level (test code = 2028-9) 27 22-29 [facility] CampusAnion Zkp5534-62-84 14:52:00* Test Item Value Reference Range Interpretation Comments Anion Gap (test code = 19178-6) 15.1 8-16 [facility] CampusBlood Urea Eumnwcwo5130-69-02 14:52:00* Test Item Value Reference Range Interpretation Comments Blood Urea Nitrogen (test code = 3094-0) 16 7-26 [facility] CampusCreatinine2020-01-31 14:52:00* Test Item Value Reference Range Interpretation Comments Creatinine (test code = 2160-0) 0.89 0.57-1.11 [facility] CampusBUN/Creatinine Aazxm3242-23-41 14:52:00* Test Item Value Reference Range Interpretation Comments BUN/Creatinine Ratio (test code = 3097-3) 18 6- [facility] CampusEstimat Glomerular Filtration Rate 2019-10-18 14:52:00* Test Item Value Reference Range Interpretation Comments Estimat Glomerular Filtration Rate (test code = 723495277) 60 >60 Ranges were taken from the National Kidney Disease Education Program and the [facility] literature.Reference ranges:60 or greater: Kletnw26-37 ( for 3 consecutive months): Chronic kidney disease 15 or less: Kidney failureThe [facility] of [facility] CampusGlucose Lergs3008-42-60 14:52:00* Test Item Value Reference Range Interpretation Comments Glucose Level (test code = XWR6957) 101 74-118 [facility] CampusCalcium Sdfhd9441-13-25 14:52:00* Test Item Value Reference Range Interpretation Comments Calcium Level (test code = 48891-7) 10.1 8.4-10.2 [facility] CampusMagnesium Htwbt7748-32-00 14:52:00* Test Item Value Reference Range Interpretation Comments Magnesium Level (test code = 80431-5) 2.0 1.3-2.1 [facility] CampusTotal Daaocaqyx9329-07-66 14:52:00* Test Item Value Reference Range Interpretation Comments Total Bilirubin (test code = 1975-2) 0.4 0.2-1.2 [facility] CampusAspartate Amino Transf (AST/SGOT) 2019-10-18 14:52:00* Test Item Value Reference Range Interpretation Comments Aspartate Amino Transf (AST/SGOT) (test code = Aspartate Amino Transf (AST/SGOT)) 19 5-34 [facility] CampusAlanine Aminotransferase (ALT/SGPT) 2019-10-18 14:52:00* Test Item Value Reference Range Interpretation Comments Alanine Aminotransferase (ALT/SGPT) (test code = 1742-6) 16 0-55 [facility]tal Rdhgnek0846-05-43 14:52:00* Test Item Value Reference Range Interpretation Comments Total Protein (test code = 2885-2) 7.3 6.5-8.1 [facility] CampusAlbumin2020-01-31 14:52:00* Test Item Value Reference Range Interpretation Comments Albumin (test code = 1751-7) 3.9 3.5-5.0 [facility] CampusGlobulin2020-01-31 14:52:00* Test Item Value Reference Range Interpretation Comments Globulin (test code = 46404-8) 3.4 2.3-3.5 [facility] CampusAlbumin/Globulin Yijqx4058-88-10 14:52:00 * Test Item Value Reference Range Interpretation Comments Albumin/Globulin Ratio (test code = 1759-0) 1.1 0.8-2.0 [facility] CampusAlkaline Gkxqgvaaimb4328-01-68 14:52:00* Test Item Value Reference Range Interpretation Comments Alkaline Phosphatase (test code = 6768-6) 88 40-150 [facility] CampusCreatine Osykwz9572-70-10 14:52:00* Test Item Value Reference Range Interpretation Comments Creatine Kinase (test code = 2157-6) 57 29-168 [facility] CampusProthrombin Mrwn6405-82-98 14:47:00* Test Item Value Reference Range Interpretation Comments Prothrombin Time (test code = 5902-2) 12.3 11.9-14.5 [facility] CampusProthromb Time International Ratio 2019-10-18 14:47:00* Test Item Value Reference Range Interpretation Comments Prothromb Time International Ratio (test code = 6301-6) 0.90 Oral Anticoagulant Therapy INR Values:1. Low Intensity Therapy 1.5 - 2.02 . Moderate Intensity Therapy 2.0 - 3.03. High Intensity Therapy(1) 2.5 - 3. 54. High Intensity Therapy(2) 3.0 - 4.05. Panic Value INR > 5.0 [facility] CampusActivated Partial Thromboplast Time 2019-10-18 14:47:00* Test Item Value Reference Range Interpretation Comments Activated Partial Thromboplast Time (test code = 03515-0) 31.0 23.8-35.5 [facility] CampusWhite Blood Dqcpm5137-36-15 14:33:00* Test Item Value Reference Range Interpretation Comments White Blood Count (test code = 6690-2) 8.10 4.8-10.8 [facility] CampusRed Blood Psysg0231-13-90 14:33:00* Test Item Value Reference Range Interpretation Comments Red Blood Count (test code = 789-8) 4.60 3.6-5.1 [facility] CampusHemoglobin2020-01-31 14:33:00* Test Item Value Reference Range Interpretation Comments Hemoglobin (test code = 53717-6) 13.8 12.0-16.0 [facility] CampusHematocrit2020-01-31 14:33:00* Test Item Value Reference Range Interpretation Comments Hematocrit (test code = 4544-3) 40.9 34.2-44.1 [facility] CampusMean Corpuscular Mfiizn2423-79-63 14:33:00* Test Item Value Reference Range Interpretation Comments Mean Corpuscular Volume (test code = 787-2) 88.9 81-99 [facility] CampusMean Corpuscular Ivuidhwlyi6494-45-87 14:33:00* Test Item Value Reference Range Interpretation Comments Mean Corpuscular Hemoglobin (test code = 785-6) 30.0 28-32 [facility] CampusMean Corpuscular Hemoglobin Concent 2019-10-18 14:33:00* Test Item Value Reference Range Interpretation Comments Mean Corpuscular Hemoglobin Concent (test code = 786-4) 33.7 31-35 [facility] CampusRed Cell Distribution Jtbmq2900-29-60 14:33:00* Test Item Value Reference Range Interpretation Comments Red Cell Distribution Width (test code = 15225-2) 12.9 11.7 -14.4 [facility] CampusPlatelet Qklxr3718-81-55 14:33:00* Test Item Value Reference Range Interpretation Comments Platelet Count (test code = 777-3) 310 140-360 [facility] CampusNeutrophils (%) (Auto)2019-10-18 14:33:00 * Test Item Value Reference Range Interpretation Comments Neutrophils (%) (Auto) (test code = 11156-5) 66.4 38.7-80.0 [facility] CampusLymphocytes (%) (Auto)2019-10-18 14:33:00 * Test Item Value Reference Range Interpretation Comments Lymphocytes (%) (Auto) (test code = 736-9) 16.8 18.0-39.1 L [facility] CampusMonocytes (%) (Auto)2019-10-18 14:33:00* Test Item Value Reference Range Interpretation Comments Monocytes (%) (Auto) (test code = 5905-5) 7.2 4.4-11.3 [facility] CampusEosinophils (%) (Auto)2019-10-18 14:33:00 * Test Item Value Reference Range Interpretation Comments Eosinophils (%) (Auto) (test code = 713-8) 3.0 0.0-6.0 [facility] CampusBasophils (%) (Auto)2019-10-18 14:33:00* Test Item Value Reference Range Interpretation Comments Basophils (%) (Auto) (test code = 706-2) 1.2 0.0-1.0 H [facility] CampusIM GRANULOCYTES %2019-10-18 14:33:00* Test Item Value Reference Range Interpretation Comments IM GRANULOCYTES % (test code = IM GRANULOCYTES %) 5.4 0.0- 1.0 H [facility] CampusNeutrophils # (Auto)2019-10-18 14:33:00* Test Item Value Reference Range Interpretation Comments Neutrophils # (Auto) (test code = 751-8) 5.4 2.1-6.9 [facility] CampusLymphocytes # (Auto)2019-10-18 14:33:00* Test Item Value Reference Range Interpretation Comments Lymphocytes # (Auto) (test code = 88872-2) 1.4 1.0-3.2 [facility] CampusMonocytes # (Auto)2019-10-18 14:33:00* Test Item Value Reference Range Interpretation Comments Monocytes # (Auto) (test code = 742-7) 0.6 0.2-0.8 [facility] CampusEosinophils # (Auto)2019-10-18 14:33:00* Test Item Value Reference Range Interpretation Comments Eosinophils # (Auto) (test code = 711-2) 0.2 0.0-0.4 [facility] CampusBasophils # (Auto)2019-10-18 14:33:00* Test Item Value Reference Range Interpretation Comments Basophils # (Auto) (test code = 704-7) 0.1 0.0-0.1 [facility] CampusAbsolute Immature Granulocyte (auto 2019-10-18 14:33:00* Test Item Value Reference Range Interpretation Comments Absolute Immature Granulocyte (auto (inocente t code = Absolute Immature Granulocyte (auto) 0.44 0-0.1 H [facility] CampusCT ABDOMEN/PELVIS [id number] 14:33:00 [facility] [address] [place] [address] Patient Name: FRANK PERRY MR #: [id number] : 1930 Age/Sex: 89/F Req #: [id number] Adm Physician: Ordered by: LILIANA GARCIA MD Report #: [id number] Location: Room/Bed: Procedure: [id number] CT/CT ABDOMEN/PELVIS WO Exam Date: 10/18/19 Exam [...] m. No renal abnormality. Signed by: Michael Gomez on 10/18/2019 2:43 P M Dictated By: MICHAEL GOMEZ MD 144 Transcribed By: ROLO on 10/18/19 1443 COPY TO: LILIANA SANZ MD Urine AGB0448-11-60 12:33:00* Test Item Value Reference Range Interpretation Comments Urine WBC (test code = 5821-4) 6-10 0-5 H [facility] CampusUrine EGZ6598-80-00 12:33:00* Test Item Value Reference Range Interpretation Comments Urine RBC (test code = 97015-6) 11-20 0-5 H [facility] CampusUrine Fndhkxre1563-28-59 12:33:00* Test Item Value Reference Range Interpretation Comments Urine Bacteria (test code = 78920-1) MODERATE NONE H [facility] CampusUrine Epithelial Czfaz8282-75-32 12:33:00 * Test Item Value Reference Range Interpretation Comments Urine Epithelial Cells (test code = 74436-7) FEW NONE [facility] CampusUrine Zaorl7977-97-60 12:26:00* Test Item Value Reference Range Interpretation Comments Urine Color (test code = 5778-6) YELLOW YELLOW [facility] CampusUrine Wuvxtjv5226-43-26 12:26:00* Test Item Value Reference Range Interpretation Comments Urine Clarity (test code = 48127-2) CLEAR CLEAR [facility] CampusUrine Specific Nypidlo7798-11-53 12:26:00 * Test Item Value Reference Range Interpretation Comments Urine Specific Springer (test code = 5811-5) 1.020 1.010-1.02 5 [facility] CampusUrine pG6491-06-88 12:26:00* Test Item Value Reference Range Interpretation Comments Urine pH (test code = 90329-4) 7 5-7 [facility] CampusUrine Leukocyte Ghjyvahq7563-46-23 12:26:00* Test Item Value Reference Range Interpretation Comments Urine Leukocyte Esterase (test code = 5799-2) NEGATIVE NEGATIVE [facility] CampusUrine Agsfofs6632-84-00 12:26:00* Test Item Value Reference Range Interpretation Comments Urine Nitrite (test code = 54394-7) NEGATIVE NEGATIVE [facility] CampusUrine Lgftouo9669-31-63 12:26:00* Test Item Value Reference Range Interpretation Comments Urine Protein (test code = 5804-0) NEGATIVE NEGATIVE [facility] CampusUrine Glucose (UA)2019-10-18 12:26:00* Test Item Value Reference Range Interpretation Comments Urine Glucose (UA) (test code = 2349-9) NEGATIVE NEGATIVE [facility] CampusUrine Hntyudg6971-17-71 12:26:00* Test Item Value Reference Range Interpretation Comments Urine Ketones (test code = 78994-2) NEGATIVE NEGATIVE [facility] CampusUrine Kgahjakezynz9601-92-26 12:26:00* Test Item Value Reference Range Interpretation Comments Urine Urobilinogen (test code = 49681-3) 0.2 0.2-1 [facility] CampusUrine Urtfgksxu1899-33-69 12:26:00* Test Item Value Reference Range Interpretation Comments Urine Bilirubin (test code = 1978-6) NEGATIVE NEGATIVE [facility] CampusUrine Vyzqi7567-44-63 12:26:00* Test Item Value Reference Range Interpretation Comments Urine Blood (test code = 90604-8) TRACE NEGATIVE H [facility] CampusBacterial urine rtsavvc9524-72-88 10:13:00* Test Item Value Reference Range Interpretation Comments Urine Culture (test code = 630-4) PSEUDOMONAS AERUGINOSA [facility] CampusBacterial urine pjgjtzz1534-60-45 10:13:00* Test Item Value Reference Range Interpretation Comments Urine Culture (test code = 630-4) PSEUDOMONAS AERUGINOSA [facility] CampusBacterial urine isovawv8068-06-13 10:13:00* Test Item Value Reference Range Interpretation Comments Urine Culture (test code = 630-4) PSEUDOMONAS AERUGINOSA [facility] CampusBacterial urine rendyfe3531-38-64 10:13:00* Test Item Value Reference Range Interpretation Comments Urine Culture (test code = 630-4) PSEUDOMONAS AERUGINOSA [facility] Mjdxi5112-71-74 02:58:00* Test Item Value Reference Range Interpretation Comments Sodium Level (test code = 2951-2) 136 136-145 [facility] CampusPotassium Hwwub5641-64-40 02:58:00* Test Item Value Reference Range Interpretation Comments Potassium Level (test code = 2823-3) 3.9 3.5-5.1 [facility] CampusChloride Jrjdc8744-13-88 02:58:00* Test Item Value Reference Range Interpretation Comments Chloride Level (test code = 2075-0) 99 98-107 [facility] CampusCarbon Dioxide Xltvl3955-67-64 02:58:00* Test Item Value Reference Range Interpretation Comments Carbon Dioxide Level (test code = 2028-9) 24 22-29 [facility] CampusAnion Tua1914-52-54 02:58:00* Test Item Value Reference Range Interpretation Comments Anion Gap (test code = 15135-9) 16.9 8-16 H [facility] CampusBlood Urea Bserdkcl5551-48-40 02:58:00* Test Item Value Reference Range Interpretation Comments Blood Urea Nitrogen (test code = 3094-0) 15 7-26 [facility] CampusCreatinine2020-01-28 02:58:00* Test Item Value Reference Range Interpretation Comments Creatinine (test code = 2160-0) 1.01 0.57-1.11 [facility] CampusBUN/Creatinine Gzlfa2218-99-84 02:58:00* Test Item Value Reference Range Interpretation Comments BUN/Creatinine Ratio (test code = 3097-3) 15 6-25 [facility] CampusEstimat Glomerular Filtration Rate 2019-10-15 02:58:00* Test Item Value Reference Range Interpretation Comments Estimat Glomerular Filtration Rate (test code = 744785046) 52 >60 L Ranges were taken from the National Kidney Disease Education Program and the [facility] Foundation literature.Reference ranges:60 or greater: Siovty56-12 ( for 3 consecutive months): Chronic kidney disease 15 or less: Kidney failureThe [facility] CampusGlucose Hsbon0536-78-53 02:58:00* Test Item Value Reference Range Interpretation Comments Glucose Level (test code = CDM2801) 96 74-118 [facility] CampusCalcium Hoclj1968-72-40 02:58:00* Test Item Value Reference Range Interpretation Comments Calcium Level (test code = 45102-9) 9.7 8.4-10.2 [facility] CampusUrine [id number] 02:54:00* Test Item Value Reference Range Interpretation Comments Urine WBC (test code = 5821-4) 11-20 0-5 H [facility] CampusUrine BSY0479-92-63 02:54:00* Test Item Value Reference Range Interpretation Comments Urine RBC (test code = 08123-0) 0-5 0-5 [facility] CampusUrine Zmqrguod3819-96-38 02:54:00* Test Item Value Reference Range Interpretation Comments Urine Bacteria (test code = 19738-2) FEW NONE [facility] CampusUrine Epithelial Hcera4601-12-50 02:54:00 * Test Item Value Reference Range Interpretation Comments Urine Epithelial Cells (test code = 28352-3) FEW NONE [facility] CampusWhite Blood Prsdr4020-85-33 02:40:00* Test Item Value Reference Range Interpretation Comments White Blood Count (test code = 6690-2) 8.47 4.8-10.8 [facility] CampusRed Blood Kqpgy8693-07-34 02:40:00* Test Item Value Reference Range Interpretation Comments Red Blood Count (test code = 789-8) 4.68 3.6-5.1 [facility] CampusHemoglobin2020-01-28 02:40:00* Test Item Value Reference Range Interpretation Comments Hemoglobin (test code = 53410-6) 14.1 12.0-16.0 [facility] CampusHematocrit2020-01-28 02:40:00* Test Item Value Reference Range Interpretation Comments Hematocrit (test code = 4544-3) 41.8 34.2-44.1 [facility] CampusMean Corpuscular Ivqznv7814-21-74 02:40:00* Test Item Value Reference Range Interpretation Comments Mean Corpuscular Volume (test code = 787-2) 89.3 81-99 [facility] CampusMean Corpuscular Uwqvzpmrrd4774-10-62 02:40:00* Test Item Value Reference Range Interpretation Comments Mean Corpuscular Hemoglobin (test code = 785-6) 30.1 28-32 [facility] CampusMean Corpuscular Hemoglobin Concent 2019-10-15 02:40:00* Test Item Value Reference Range Interpretation Comments Mean Corpuscular Hemoglobin Concent (test code = 786-4) 33.7 31-35 [facility] CampusRed Cell Distribution Qihgr6387-45-09 02:40:00* Test Item Value Reference Range Interpretation Comments Red Cell Distribution Width (test code = 75831-6) 13.0 11.7 -14.4 [facility] CampusPlatelet Ytyck0828-92-71 02:40:00* Test Item Value Reference Range Interpretation Comments Platelet Count (test code = 777-3) 278 140-360 [facility] CampusNeutrophils (%) (Auto)2019-10-15 02:40:00 * Test Item Value Reference Range Interpretation Comments Neutrophils (%) (Auto) (test code = 49104-1) 74.8 38.7-80.0 [facility] CampusLymphocytes (%) (Auto)2019-10-15 02:40:00 * Test Item Value Reference Range Interpretation Comments Lymphocytes (%) (Auto) (test code = 736-9) 10.3 18.0-39.1 L [facility] CampusMonocytes (%) (Auto)2019-10-15 02:40:00* Test Item Value Reference Range Interpretation Comments Monocytes (%) (Auto) (test code = 5905-5) 6.6 4.4-11.3 [facility] CampusEosinophils (%) (Auto)2019-10-15 02:40:00 * Test Item Value Reference Range Interpretation Comments Eosinophils (%) (Auto) (test code = 713-8) 5.7 0.0-6.0 [facility] CampusBasophils (%) (Auto)2019-10-15 02:40:00* Test Item Value Reference Range Interpretation Comments Basophils (%) (Auto) (test code = 706-2) 0.6 0.0-1.0 [facility] CampusIM GRANULOCYTES %2019-10-15 02:40:00* Test Item Value Reference Range Interpretation Comments IM GRANULOCYTES % (test code = IM GRANULOCYTES %) 2.0 0.0- 1.0 H [facility] CampusNeutrophils # (Auto)2019-10-15 02:40:00* Test Item Value Reference Range Interpretation Comments Neutrophils # (Auto) (test code = 751-8) 6.3 2.1-6.9 [facility] CampusLymphocytes # (Auto)2019-10-15 02:40:00* Test Item Value Reference Range Interpretation Comments Lymphocytes # (Auto) (test code = 01987-1) 0.9 1.0-3.2 L [facility] CampusMonocytes # (Auto)2019-10-15 02:40:00* Test Item Value Reference Range Interpretation Comments Monocytes # (Auto) (test code = 742-7) 0.6 0.2-0.8 [facility] CampusEosinophils # (Auto)2019-10-15 02:40:00* Test Item Value Reference Range Interpretation Comments Eosinophils # (Auto) (test code = 711-2) 0.5 0.0-0.4 H [facility] CampusBasophils # (Auto)2019-10-15 02:40:00* Test Item Value Reference Range Interpretation Comments Basophils # (Auto) (test code = 704-7) 0.1 0.0-0.1 [facility] CampusAbsolute Immature Granulocyte (auto 2019-10-15 02:40:00* Test Item Value Reference Range Interpretation Comments Absolute Immature Granulocyte (auto (inocente t code = Absolute Immature Granulocyte (auto) 0.17 0-0.1 H [facility] CampusUrine Qokoi0077-59-48 02:40:00* Test Item Value Reference Range Interpretation Comments Urine Color (test code = 5778-6) YELLOW YELLOW [facility] CampusUrine Yfrjuik3420-59-33 02:40:00* Test Item Value Reference Range Interpretation Comments Urine Clarity (test code = 59045-2) CLEAR CLEAR [facility] CampusUrine Specific Dlojvtq5748-44-35 02:40:00 * Test Item Value Reference Range Interpretation Comments Urine Specific Springer (test code = 5811-5) 1.020 1.010-1.02 5 [facility] CampusUrine zQ7057-72-84 02:40:00* Test Item Value Reference Range Interpretation Comments Urine pH (test code = 54088-7) 8 5-7 [facility] Leukocyte Bnainikb8703-66-97 02:40:00* Test Item Value Reference Range Interpretation Comments Urine Leukocyte Esterase (test code = 5799-2) TRACE NEGATIVE H [facility] Utvuubk5961-63-11 02:40:00* Test Item Value Reference Range Interpretation Comments Urine Nitrite (test code = 50093-2) NEGATIVE NEGATIVE [facility] CampusUrine Yvcmvyj8870-40-47 02:40:00* Test Item Value Reference Range Interpretation Comments Urine Protein (test code = 5804-0) NEGATIVE NEGATIVE [facility] CampusUrine Glucose (UA)2019-10-15 02:40:00* Test Item Value Reference Range Interpretation Comments Urine Glucose (UA) (test code = 2349-9) NEGATIVE NEGATIVE [facility] CampusUrine Roovbwu6538-57-19 02:40:00* Test Item Value Reference Range Interpretation Comments Urine Ketones (test code = 34625-0) NEGATIVE NEGATIVE [facility] Dbhvmhjsfcrl3664-92-86 02:40:00* Test Item Value Reference Range Interpretation Comments Urine Urobilinogen (test code = 75305-4) 0.2 0.2-1 [facility] CampusUrine Bsyvfsljl1464-55-89 02:40:00* Test Item Value Reference Range Interpretation Comments Urine Bilirubin (test code = 1978-6) NEGATIVE NEGATIVE [facility] CampusUrine Vwfod5617-97-73 02:40:00* Test Item Value Reference Range Interpretation Comments Urine Blood (test code = 61351-6) TRACE NEGATIVE H [facility] CampusABDOMEN-1VIEW (KUB)2019-10-15 02:28:00 [facility] [address] [address] Patient Name: FRANK PERRY MR #: [id number] : 1930 Age/Sex: 89/F Req #: [id number] Adm Physician: Ordered by: ELIZABETH JAMES MD Report #: [id number] Location: ER Room/Bed: Procedure: 0128-000 4 DX/ABDOMEN-1VIEW [...] 10/15 COPY TO: ELIZABETH JAMES MD ABDOMEN-1VIEW ([facility]) 2019-09-27 11:22:00 [place] [address] [address] Patient Name: FRANK PERRY MR #: [id number] : 1930 Age/Sex: 89/F Req #: [id number] Adm Physician: Ordered by: TADEO STOREY MD Report #: [id number] Location: [facility] Room/Bed: Procedure: [id number] DX/AB DOMEN-1VIEW ([facility]) Exam Date: 09/27/19 Exam Time: 103 [...] on 09/27/191122 Transcribed By: ROLO on 0 1122 COPY TO: TADEO STOREY MD SACRUM XEJIFE3280-06-75 15:43:00 [address] [place] [address] Patient Name: FRANK PERRY MR #: [id number] : 1930 Age/Sex: 89/F Req #: [id number] Adm Physician: Ordered by: TSERING CAMERON MD Report #: [id number] Location: Room/Bed: Procedure: [id number] D X/SACRUM COCCYX Exam Date: 08/09/19 Exam [...] lumbar spine. Signed by : Dr. Jazmyn Hurley M.D. on 08/09/2019 3:46 PM Dictated By: JAZMYN Vizcaino MD 1546 Transcribed B y: ROLO on 08/09/19 1546 COPY TO: TSERING CAMERON MD SP LUMBAR, COMPLETE MIN 8PT5464-51-51 15:43:00 [place] [address] Patient Name: FRANK PERRY MR #: [id number] : 1930 Age/Sex: 89/F Req #: [id number] Adm Physician: Ordered by: TSERING CAMERON MD Report #: [id number] Location: ER Room/Bed: Procedure: [id number] D X/SP LUMBAR, COMPLETE MIN 4VW Exam [...] the lumbar spine. Signed by: Dr. Jazmyn Hurley M.D. on 08/09/2019 3:46 PM Dictated By: JAZMYN HURLEY MD 45 T ranscribed By: ROLO on 08/09/191545 COPY TO: TSERING CAMERON MD Urine Sdipt1323-27-70 15:16:00* Test Item Value Reference Range Interpretation Comments Urine Color (test code = 5778-6) YELLOW YELLOW [facility] CampusUrine TLH6737-75-29 15:16:00* Test Item Value Reference Range Interpretation Comments Urine WBC (test code = 5821-4) NONE 0-5 [facility] CampusUrine PSB7342-27-02 15:16:00* Test Item Value Reference Range Interpretation Comments Urine RBC (test code = 92551-1) 0-5 0-5 [facility] CampusUrine Gwybrnrk8934-91-95 15:16:00* Test Item Value Reference Range Interpretation Comments Urine Bacteria (test code = 98095-0) NONE NONE [facility] CampusUrine Epithelial Suowj7041-49-79 15:16:00 * Test Item Value Reference Range Interpretation Comments Urine Epithelial Cells (test code = 84799-2) RARE NONE [facility] CampusUrine Kzjsyap1273-64-09 14:59:00* Test Item Value Reference Range Interpretation Comments Urine Clarity (test code = 67736-5) CLEAR CLEAR [facility] CampusUrine Specific Atdwsxv3811-59-94 14:59:00 * Test Item Value Reference Range Interpretation Comments Urine Specific Springer (test code = 5811-5) 1.010 1.010-1.02 5 [facility] CampusUrine oJ3363-17-81 14:59:00* Test Item Value Reference Range Interpretation Comments Urine pH (test code = 20081-8) 8 5-7 [facility] CampusUrine Leukocyte Pkidtevc6698-25-05 14:59:00* Test Item Value Reference Range Interpretation Comments Urine Leukocyte Esterase (test code = 56890-4) NEGATIVE NEGATIV E [facility] CampusUrine Fineztq7613-24-24 14:59:00* Test Item Value Reference Range Interpretation Comments Urine Nitrite (test code = 95466-2) NEGATIVE NEGATIVE [facility] CampusUrine Ixlgfwx1139-93-95 14:59:00* Test Item Value Reference Range Interpretation Comments Urine Protein (test code = 11518-0) NEGATIVE NEGATIVE [facility] CampusUrine Glucose (UA)2019-08-09 14:59:00* Test Item Value Reference Range Interpretation Comments Urine Glucose (UA) (test code = 17773-7) NEGATIVE NEGATIVE [facility] CampusUrine Bfybkmv2159-43-29 14:59:00* Test Item Value Reference Range Interpretation Comments Urine Ketones (test code = 36449-5) NEGATIVE NEGATIVE [facility] CampusUrine Hanybyhrwztx2398-76-07 14:59:00* Test Item Value Reference Range Interpretation Comments Urine Urobilinogen (test code = 88987-2) 0.2 0.2-1 [facility] CampusUrine Bnfibtsaj6955-82-85 14:59:00* Test Item Value Reference Range Interpretation Comments Urine Bilirubin (test code = 1977-8) NEGATIVE NEGATIVE [facility] CampusUrine Ddywi8573-20-81 14:59:00* Test Item Value Reference Range Interpretation Comments Urine Blood (test code = 11192-5) 1+ NEGATIVE [facility] CampusCT ABDOMEN/PELVIS V8177-53-93 09:50:00 [place] [address] Patient Name: FRANK PERRY MR #: [id number] : 1930 Age/Sex: 89/F Req #: [id number] Adm Physician: Ordered by: SUYAPA ALATORRE MD Report #: [id number] Location: CT Room/Bed: Procedure: [id number] CT/C T ABDOMEN/PELVIS W Exam Date: 07/03/19 [...] COPY TO: SUYAPA ALATORRE MD Blood Urea Bjeejghd4209-18-61 08:27:00* Test Item Value Reference Range Interpretation Comments Blood Urea Nitrogen (test code = 3094-0) 27 7-26 H [facility] CampusCreatinine2019-10-16 08:27:00* Test Item Value Reference Range Interpretation Comments Creatinine (test code = 2160-0) 1.34 0.57-1.11 H [facility] CampusBUN/Creatinine Thfzs0425-59-67 08:27:00* Test Item Value Reference Range Interpretation Comments BUN/Creatinine Ratio (test code = 3097-3) 20 6-25 [facility] CampusEstimat Glomerular Filtration Rate 2019-07-03 08:27:00* Test Item Value Reference Range Interpretation Comments Estimat Glomerular Filtration Rate (test code = 367799212) 37 >60 L Ranges were taken from the National Kidney Disease Education Program and the [facility] Foundation literature.Reference ranges:60 or greater: Cyhahp57-04 ( for 3 consecutive months): Chronic kidney disease 15 or less: Kidney failureThe [facility] of [facility] CampusWhite Blood Eyjks2736-53-75 16:18:00* Test Item Value Reference Range Interpretation Comments White Blood Count (test code = 6690-2) 7.46 4.8-10.8 [facility] CampusRed Blood Nocze3382-40-87 16:18:00* Test Item Value Reference Range Interpretation Comments Red Blood Count (test code = 789-8) 3.86 3.6-5.1 [facility] CampusHemoglobin2019-09-18 16:18:00* Test Item Value Reference Range Interpretation Comments Hemoglobin (test code = 08629-2) 11.7 12.0-16.0 L [facility] CampusHematocrit2019-09-18 16:18:00* Test Item Value Reference Range Interpretation Comments Hematocrit (test code = 4544-3) 35.2 34.2-44.1 [facility] CampusMean Corpuscular Ecqolw2269-54-68 16:18:00* Test Item Value Reference Range Interpretation Comments Mean Corpuscular Volume (test code = 787-2) 91.2 81-99 [facility] CampusMean Corpuscular Iutwelnbgv9784-46-24 16:18:00* Test Item Value Reference Range Interpretation Comments Mean Corpuscular Hemoglobin (test code = 785-6) 30.3 28-32 [facility] CampusMean Corpuscular Hemoglobin Concent 2019-06-05 16:18:00* Test Item Value Reference Range Interpretation Comments Mean Corpuscular Hemoglobin Concent (test code = 786-4) 33.2 31-35 [facility] CampusRed Cell Distribution Bnyrr4003-08-26 16:18:00* Test Item Value Reference Range Interpretation Comments Red Cell Distribution Width (test code = 01755-8) 13.0 11.7 -14.4 [facility] CampusPlatelet Jgith4591-97-07 16:18:00* Test Item Value Reference Range Interpretation Comments Platelet Count (test code = 777-3) 214 140-360 [facility] CampusNeutrophils (%) (Auto)2019-06-05 16:18:00 * Test Item Value Reference Range Interpretation Comments Neutrophils (%) (Auto) (test code = 27672-3) 64.8 38.7-80.0 [facility] CampusLymphocytes (%) (Auto)2019-06-05 16:18:00 * Test Item Value Reference Range Interpretation Comments Lymphocytes (%) (Auto) (test code = 736-9) 22.1 18.0-39.1 [facility] CampusMonocytes (%) (Auto)2019-06-05 16:18:00* Test Item Value Reference Range Interpretation Comments Monocytes (%) (Auto) (test code = 5905-5) 8.8 4.4-11.3 [facility] CampusEosinophils (%) (Auto)2019-06-05 16:18:00 * Test Item Value Reference Range Interpretation Comments Eosinophils (%) (Auto) (test code = 713-8) 2.9 0.0-6.0 [facility] CampusBasophils (%) (Auto)2019-06-05 16:18:00* Test Item Value Reference Range Interpretation Comments Basophils (%) (Auto) (test code = 706-2) 0.5 0.0-1.0 [facility] CampusIM GRANULOCYTES %2019-06-05 16:18:00* Test Item Value Reference Range Interpretation Comments IM GRANULOCYTES % (test code = IM GRANULOCYTES %) 0.9 0.0- 1.0 [facility] CampusNeutrophils # (Auto)2019-06-05 16:18:00* Test Item Value Reference Range Interpretation Comments Neutrophils # (Auto) (test code = 751-8) 4.8 2.1-6.9 [facility] CampusLymphocytes # (Auto)2019-06-05 16:18:00* Test Item Value Reference Range Interpretation Comments Lymphocytes # (Auto) (test code = 10574-1) 1.7 1.0-3.2 [facility] CampusMonocytes # (Auto)2019-06-05 16:18:00* Test Item Value Reference Range Interpretation Comments Monocytes # (Auto) (test code = 742-7) 0.7 0.2-0.8 [facility] CampusEosinophils # (Auto)2019-06-05 16:18:00* Test Item Value Reference Range Interpretation Comments Eosinophils # (Auto) (test code = 711-2) 0.2 0.0-0.4 [facility] CampusBasophils # (Auto)2019-06-05 16:18:00* Test Item Value Reference Range Interpretation Comments Basophils # (Auto) (test code = 704-7) 0.0 0.0-0.1 [facility] CampusAbsolute Immature Granulocyte (auto 2019-06-05 16:18:00* Test Item Value Reference Range Interpretation Comments Absolute Immature Granulocyte (auto (inocente t code = Absolute Immature Granulocyte (auto) 0.07 0-0.1 [facility] CampusTressentia health U3733-11-19 12:37:00* Test Item Value Reference Range Interpretation Comments Troponin I (test code = HFX0799) 0.008 0-0.300 [facility] [id number] 12:37:00* Test Item Value Reference Range Interpretation Comments Troponin I (test code = VHT3264) 0.008 0-0.300 [facility] CampusTroponin M9490-50-55 12:37:00* Test Item Value Reference Range Interpretation Comments Troponin I (test code = LCB1866) 0.008 0-0.300 [facility] CampusCreatine Kinase EK6115-76-98 07:01:00* Test Item Value Reference Range Interpretation Comments Creatine Kinase MB (test code = 03621-6) 1.10 0-5.0 [facility] CampusCreatine Kinase BZ4789-70-24 07:01:00* Test Item Value Reference Range Interpretation Comments Creatine Kinase MB (test code = 54643-4) 1.10 0-5.0 [facility] CampusCreatine Kinase YD3022-20-73 07:01:00* Test Item Value Reference Range Interpretation Comments Creatine Kinase MB (test code = 26387-5) 1.10 0-5.0 [facility] CampusCreatine Oizfjo5367-34-22 06:53:00* Test Item Value Reference Range Interpretation Comments Creatine Kinase (test code = 2157-6) 28 29-168 L [facility] CampusCreatine Snoava8150-05-86 06:53:00* Test Item Value Reference Range Interpretation Comments Creatine Kinase (test code = 2157-6) 28 29-168 L [facility] Centeratine Tfqtki4293-60-95 06:53:00* Test Item Value Reference Range Interpretation Comments Creatine Kinase (test code = 2157-6) 28 29-168 [facility] Pknvw4201-29-15 06:34:00* Test Item Value Reference Range Interpretation Comments Sodium Level (test code = 2951-2) 133 136-145 L [facility] CampusPotassium Beahh7131-57-67 06:34:00* Test Item Value Reference Range Interpretation Comments Potassium Level (test code = 2823-3) 4.5 3.5-5.1 [facility] CampusChloride Ofwnk6475-33-26 06:34:00* Test Item Value Reference Range Interpretation Comments Chloride Level (test code = 2075-0) 100 98-107 [facility] CampusCarbon Dioxide Xjrxo9742-04-64 06:34:00* Test Item Value Reference Range Interpretation Comments Carbon Dioxide Level (test code = 2028-9) 25 -29 [facility] CampusAnion Vgq5627-89-19 06:34:00* Test Item Value Reference Range Interpretation Comments Anion Gap (test code = 35076-9) 12.5 8-16 [facility] CampusBlood Urea Jryfqivn3865-02-64 06:34:00* Test Item Value Reference Range Interpretation Comments Blood Urea Nitrogen (test code = 3094-0) 19 7- [facility] CampusCreatinine2019-04-27 06:34:00* Test Item Value Reference Range Interpretation Comments Creatinine (test code = 2160-0) 1.04 0.57-1.11 [facility] CampusBUN/Creatinine Fyncs0545-00-51 06:34:00* Test Item Value Reference Range Interpretation Comments BUN/Creatinine Ratio (test code = 3097-3) 18 - [facility] CampusEstimat Glomerular Filtration Rate 2019-01-12 06:34:00* Test Item Value Reference Range Interpretation Comments Estimat Glomerular Filtration Rate (test code = 668690966) 50 >60 L Ranges were taken from the National Kidney Disease Education Program and the [facility] literature.Reference ranges:60 or greater: Zthfoa39-33 ( for 3 consecutive months): Chronic kidney disease 15 or less: Kidney failureThe [facility] of [facility] CampusGlucose Crwjs0353-16-31 06:34:00* Test Item Value Reference Range Interpretation Comments Glucose Level (test code = WZJ2666) 86 74-118 [facility] CampusCalcium Ksjfe7240-21-49 06:34:00* Test Item Value Reference Range Interpretation Comments Calcium Level (test code = 91244-5) 8.5 8.4-10.2 [facility] CampusTotal Crdsccvcj4691-43-18 06:34:00* Test Item Value Reference Range Interpretation Comments Total Bilirubin (test code = 1975-2) 0.6 0.2-1.2 [facility] CampusAspartate Amino Transf (AST/SGOT) 2019-01-12 06:34:00* Test Item Value Reference Range Interpretation Comments Aspartate Amino Transf (AST/SGOT) (test code = Aspartate Amino Transf (AST/SGOT)) 15 5-34 [facility] CampusAlanine Aminotransferase (ALT/SGPT) 2019-01-12 06:34:00* Test Item Value Reference Range Interpretation Comments Alanine Aminotransferase (ALT/SGPT) (test code = 1742-6) 13 0-55 [facility] CampusTotal Wjwoegr4431-17-51 06:34:00* Test Item Value Reference Range Interpretation Comments Total Protein (test code = 2885-2) 5.6 6.5-8.1 L [facility] CampusAlbumin2019-04-27 06:34:00* Test Item Value Reference Range Interpretation Comments Albumin (test code = 1751-7) 2.9 3.5-5.0 L [facility] CampusGlobulin2019-04-27 06:34:00* Test Item Value Reference Range Interpretation Comments Globulin (test code = 07079-9) 2.7 2.3-3.5 [facility] CampusAlbumin/Globulin Ogqfe3100-60-34 06:34:00 * Test Item Value Reference Range Interpretation Comments Albumin/Globulin Ratio (test code = 1759-0) 1.1 0.8-2.0 [facility] CampusAlkaline Vubbxzjurcq5402-25-88 06:34:00* Test Item Value Reference Range Interpretation Comments Alkaline Phosphatase (test code = 6768-6) 53 40-150 [facility] Bnyrj2688-99-24 06:34:00* Test Item Value Reference Range Interpretation Comments Sodium Level (test code = 2951-2) 133 136-145 L [facility] CampusPotassium Cvggx3694-77-82 06:34:00* Test Item Value Reference Range Interpretation Comments Potassium Level (test code = 2823-3) 4.5 3.5-5.1 [facility] CampusChloride Majzl4460-66-91 06:34:00* Test Item Value Reference Range Interpretation Comments Chloride Level (test code = 2075-0) 100 98-107 [facility] CampusCarbon Dioxide Htjvh4138-81-76 06:34:00* Test Item Value Reference Range Interpretation Comments Carbon Dioxide Level (test code = 2028-9) 25 22-29 [facility] CampusAnion Kxj5545-40-46 06:34:00* Test Item Value Reference Range Interpretation Comments Anion Gap (test code = 52873-8) 12.5 8-16 [facility] CampusGlucose Hdehl7481-92-73 06:34:00* Test Item Value Reference Range Interpretation Comments Glucose Level (test code = JMK9306) 86 74-118 [facility] CampusCalcium Lzqxl3306-58-46 06:34:00* Test Item Value Reference Range Interpretation Comments Calcium Level (test code = 67009-6) 8.5 8.4-10.2 [facility] CampusTotal Iajduydli3647-86-50 06:34:00* Test Item Value Reference Range Interpretation Comments Total Bilirubin (test code = 1975-2) 0.6 0.2-1.2 [facility] CampusAspartate Amino Transf (AST/SGOT) 2019-01-12 06:34:00* Test Item Value Reference Range Interpretation Comments Aspartate Amino Transf (AST/SGOT) (test code = Aspartate Amino Transf (AST/SGOT)) 15 5-34 [facility] CampusAlanine Aminotransferase (ALT/SGPT) 2019-01-12 06:34:00* Test Item Value Reference Range Interpretation Comments Alanine Aminotransferase (ALT/SGPT) (test code = 1742-6) 13 0-55 [facility] CampusTotal Rouyimm1207-77-60 06:34:00* Test Item Value Reference Range Interpretation Comments Total Protein (test code = 2885-2) 5.6 6.5-8.1 L [facility] CampusAlbumin2019-04-27 06:34:00* Test Item Value Reference Range Interpretation Comments Albumin (test code = 1751-7) 2.9 3.5-5.0 L [facility] CampusGlobulin2019-04-27 06:34:00* Test Item Value Reference Range Interpretation Comments Globulin (test code = 74745-1) 2.7 2.3-3.5 [facility] CampusAlbumin/Globulin Srpid7751-63-79 06:34:00 * Test Item Value Reference Range Interpretation Comments Albumin/Globulin Ratio (test code = 1759-0) 1.1 0.8-2.0 [facility] CampusAlkaline Sowqpfmdnea5858-50-65 06:34:00* Test Item Value Reference Range Interpretation Comments Alkaline Phosphatase (test code = 6768-6) 53 40-150 [facility] CampusTotal Pvrybgyms4739-13-28 06:34:00* Test Item Value Reference Range Interpretation Comments Total Bilirubin (test code = 1975-2) 0.6 0.2-1.2 [facility] CampusAspartate Amino Transf (AST/SGOT) 2019-01-12 06:34:00* Test Item Value Reference Range Interpretation Comments Aspartate Amino Transf (AST/SGOT) (test code = Aspartate Amino Transf (AST/SGOT)) 15 5-34 [facility] CampusAlanine Aminotransferase (ALT/SGPT) 2019-01-12 06:34:00* Test Item Value Reference Range Interpretation Comments Alanine Aminotransferase (ALT/SGPT) (test code = 1742-6) 13 0-55 [facility] CampusTotal Ttduswc0540-58-09 06:34:00* Test Item Value Reference Range Interpretation Comments Total Protein (test code = 2885-2) 5.6 6.5-8.1 L [facility] CampusAlbumin2019-04-27 06:34:00* Test Item Value Reference Range Interpretation Comments Albumin (test code = 1751-7) 2.9 3.5-5.0 L [facility] CampusGlobulin2019-04-27 06:34:00* Test Item Value Reference Range Interpretation Comments Globulin (test code = 49071-3) 2.7 2.3-3.5 [facility] CampusAlbumin/Globulin Ttfri1446-97-92 06:34:00 * Test Item Value Reference Range Interpretation Comments Albumin/Globulin Ratio (test code = 1759-0) 1.1 0.8-2.0 [facility] CampusAlkaline Omgbpideaby0709-59-52 06:34:00* Test Item Value Reference Range Interpretation Comments Alkaline Phosphatase (test code = 6768-6) 53 40-150 [facility] CampusWhite Blood Hgxka3118-07-76 06:22:00* Test Item Value Reference Range Interpretation Comments White Blood Count (test code = 6690-2) 7.94 4.8-10.8 [facility] CampusRed Blood Xtbpk5989-20-73 06:22:00* Test Item Value Reference Range Interpretation Comments Red Blood Count (test code = 789-8) 4.11 3.6-5.1 [facility] CampusHemoglobin2019-04-27 06:22:00* Test Item Value Reference Range Interpretation Comments Hemoglobin (test code = 75341-5) 12.5 12.0-16.0 [facility] CampusHematocrit2019-04-27 06:22:00* Test Item Value Reference Range Interpretation Comments Hematocrit (test code = 4544-3) 36.8 34.2-44.1 [facility] CampusMean Corpuscular Rfdygn7673-07-04 06:22:00* Test Item Value Reference Range Interpretation Comments Mean Corpuscular Volume (test code = 787-2) 89.5 81-99 [facility] CampusMean Corpuscular Xajjlexvgz2849-40-84 06:22:00* Test Item Value Reference Range Interpretation Comments Mean Corpuscular Hemoglobin (test code = 785-6) 30.4 28-32 [facility] CampusMean Corpuscular Hemoglobin Concent 2019-01-12 06:22:00* Test Item Value Reference Range Interpretation Comments Mean Corpuscular Hemoglobin Concent (test code = 786-4) 34.0 31-35 [facility] CampusRed Cell Distribution Hmcby0411-83-18 06:22:00* Test Item Value Reference Range Interpretation Comments Red Cell Distribution Width (test code = 09297-4) 12.9 11.7 -14.4 [facility] CampusPlatelet Jiing4172-67-78 06:22:00* Test Item Value Reference Range Interpretation Comments Platelet Count (test code = 777-3) 199 140-360 [facility] CampusNeutrophils (%) (Auto)2019-01-12 06:22:00 * Test Item Value Reference Range Interpretation Comments Neutrophils (%) (Auto) (test code = 71970-5) 48.0 38.7-80.0 [facility] CampusLymphocytes (%) (Auto)2019-01-12 06:22:00 * Test Item Value Reference Range Interpretation Comments Lymphocytes (%) (Auto) (test code = 736-9) 30.9 18.0-39.1 [facility] CampusMonocytes (%) (Auto)2019-01-12 06:22:00* Test Item Value Reference Range Interpretation Comments Monocytes (%) (Auto) (test code = 5905-5) 11.2 4.4-11.3 [facility] CampusEosinophils (%) (Auto)2019-01-12 06:22:00 * Test Item Value Reference Range Interpretation Comments Eosinophils (%) (Auto) (test code = 713-8) 5.2 0.0-6.0 [facility] CampusBasophils (%) (Auto)2019-01-12 06:22:00* Test Item Value Reference Range Interpretation Comments Basophils (%) (Auto) (test code = 706-2) 0.5 0.0-1.0 [facility] CampusIM GRANULOCYTES %2019-01-12 06:22:00* Test Item Value Reference Range Interpretation Comments IM GRANULOCYTES % (test code = IM GRANULOCYTES %) 4.2 0.0- 1.0 H [facility] CampusNeutrophils # (Auto)2019-01-12 06:22:00* Test Item Value Reference Range Interpretation Comments Neutrophils # (Auto) (test code = 751-8) 3.8 2.1-6.9 [facility] CampusLymphocytes # (Auto)2019-01-12 06:22:00* Test Item Value Reference Range Interpretation Comments Lymphocytes # (Auto) (test code = 28144-5) 2.5 1.0-3.2 [facility] CampusMonocytes # (Auto)2019-01-12 06:22:00* Test Item Value Reference Range Interpretation Comments Monocytes # (Auto) (test code = 742-7) 0.9 0.2-0.8 H [facility] CampusEosinophils # (Auto)2019-01-12 06:22:00* Test Item Value Reference Range Interpretation Comments Eosinophils # (Auto) (test code = 711-2) 0.4 0.0-0.4 [facility] CampusBasophils # (Auto)2019-01-12 06:22:00* Test Item Value Reference Range Interpretation Comments Basophils # (Auto) (test code = 704-7) 0.0 0.0-0.1 [facility] CampusAbsolute Immature Granulocyte (auto 2019-01-12 06:22:00* Test Item Value Reference Range Interpretation Comments Absolute Immature Granulocyte (auto (inocente t code = Absolute Immature Granulocyte (auto) 0.33 0-0.1 H [facility] CampusCXR 2 VIEW - MCKY0212-09-48 13:38:00 [place] [address] Patient Name: FRANK PERRY MR #: [id number] : 1930 Age/Sex: 88/F Req #: [id number] Adm Physician: CALEB ALATORRE MD Ordered by: LINDY WALKER MD Report #: [id number] Location: [facility] Room/Bed: [place] [address] Procedure: [id number] HOPD/CXR 2 VIEW - HOPD Exam Date: [...] GREGORY WALKER MD CHEST SINGLE (PORTABLE)2018-12-21 20:16:00 [place] [address] Patient Name: FRANK PERRY MR #: [id number] : 1930 Age/Sex: 88/F Req #: [id number] Adm Physician: Ordered by: LILIANA GARCIA MD Report #: [id number] Location: ER Room/Bed: Procedure: [id number] DX/CH EST SINGLE (PORTABLE) Exam Date: Exam [...] No interval change. Signed by: Dr. Berta Perez M.D. on 12/21/2018 8:20 PM Dictated By: BHASKAR PEREZ MD, MD E lectronically Signed By: BHASKAR PEREZ MD, MD on 12/21/182019 Transcribed By: ROLO on 12/21/182019 COPY TO: LILIANA GARCIA MD B-Type Natriuretic Ewxttdi4253-13-39 19:31:00* Test Item Value Reference Range Interpretation Comments B-Type Natriuretic Peptide (test code = 20329-3) 219.8 0-100 H [facility] CampusB-Type Natriuretic Uxhsgbc7028-05-29 19:31:00* Test Item Value Reference Range Interpretation Comments B-Type Natriuretic Peptide (test code = 09349-4) 219.8 0-100 H [facility] CampusB-Type Natriuretic Whqithk0211-63-43 19:31:00* Test Item Value Reference Range Interpretation Comments B-Type Natriuretic Peptide (test code = 02129-8) 219.8 0-100 H [facility] CampusB-Type Natriuretic Vlbqaph5831-83-59 19:31:00* Test Item Value Reference Range Interpretation Comments B-Type Natriuretic Peptide (test code = 28696-6) 219.8 0-100 H [facility] CampusCreatine Kinase OD5727-61-97 19:27:00* Test Item Value Reference Range Interpretation Comments Creatine Kinase MB (test code = 23283-7) 5.50 0-5.0 H [facility] CampusTroponin M7022-03-82 19:27:00* Test Item Value Reference Range Interpretation Comments Troponin I (test code = FAP8796) 0.015 0-0.300 [facility] Rzsfk6447-77-94 19:21:00* Test Item Value Reference Range Interpretation Comments Sodium Level (test code = 2951-2) 133 136-145 L [facility] CampusPotassium Orira6025-14-22 19:21:00* Test Item Value Reference Range Interpretation Comments Potassium Level (test code = 2823-3) 4.0 3.5-5.1 [facility] CampusChloride Dvyov3968-73-15 19:21:00* Test Item Value Reference Range Interpretation Comments Chloride Level (test code = 2075-0) 97 98-107 L [facility] CampusCarbon Dioxide Nvcfg8311-70-53 19:21:00* Test Item Value Reference Range Interpretation Comments Carbon Dioxide Level (test code = 2028-9) 27 22-29 [facility] CampusAnion Igq4851-79-78 19:21:00* Test Item Value Reference Range Interpretation Comments Anion Gap (test code = 97173-0) 13.0 8-16 [facility] CampusBlood Urea Tpquynas2003-98-03 19:21:00* Test Item Value Reference Range Interpretation Comments Blood Urea Nitrogen (test code = 3094-0) 18 7-26 [facility] CampusCreatinine2019-04-05 19:21:00* Test Item Value Reference Range Interpretation Comments Creatinine (test code = 2160-0) 0.96 0.57-1.11 [facility] CampusBUN/Creatinine Fsedi2212-65-70 19:21:00* Test Item Value Reference Range Interpretation Comments BUN/Creatinine Ratio (test code = 3097-3) 19 6-25 [facility] CampusEstimat Glomerular Filtration Rate 2018-12-21 19:21:00* Test Item Value Reference Range Interpretation Comments Estimat Glomerular Filtration Rate (test code = 075141874) 55 >60 L Ranges were taken from the National Kidney Disease Education Program and the [facility] [employer] literature.Reference ranges:60 or greater: Lon[place]15-19 ( for 3 consecutive months): Chronic kidney disease 15 or less: Kidney failureThe [facility] of [facility] CampusGlucose Rhpzj1716-40-78 19:21:00* Test Item Value Reference Range Interpretation Comments Glucose Level (test code = MUR7672) 104 74-118 [facility] CampusCalcium Wppuw3738-43-98 19:21:00* Test Item Value Reference Range Interpretation Comments Calcium Level (test code = 20914-0) 10.2 8.4-10.2 [facility] CampusTotal Nyevgnoby8463-73-94 19:21:00* Test Item Value Reference Range Interpretation Comments Total Bilirubin (test code = 1975-2) 0.7 0.2-1.2 [facility] CampusAspartate Amino Transf (AST/SGOT) 2018-12-21 19:21:00* Test Item Value Reference Range Interpretation Comments Aspartate Amino Transf (AST/SGOT) (test code = Aspartate Amino Transf (AST/SGOT)) 26 5-34 [facility] CampusAlanine Aminotransferase (ALT/SGPT) 2018-12-21 19:21:00* Test Item Value Reference Range Interpretation Comments Alanine Aminotransferase (ALT/SGPT) (test code = 1742-6) 16 0-55 [facility] CampusTotal Zzumyue2966-38-16 19:21:00* Test Item Value Reference Range Interpretation Comments Total Protein (test code = 2885-2) 7.9 6.5-8.1 [facility] CampusAlbumin2019-04-05 19:21:00* Test Item Value Reference Range Interpretation Comments Albumin (test code = 1751-7) 4.2 3.5-5.0 [facility] CampusGlobulin2019-04-05 19:21:00* Test Item Value Reference Range Interpretation Comments Globulin (test code = 60412-0) 3.7 2.3-3.5 H [facility] CampusAlbumin/Globulin Tzyqk8361-71-32 19:21:00 * Test Item Value Reference Range Interpretation Comments Albumin/Globulin Ratio (test code = 1759-0) 1.1 0.8-2.0 [facility] CampusAlkaline Mcktqbahfls5001-84-82 19:21:00* Test Item Value Reference Range Interpretation Comments Alkaline Phosphatase (test code = 6768-6) 85 40-150 [facility] CampusCreatine Ihdfgk7667-61-08 19:21:00* Test Item Value Reference Range Interpretation Comments Creatine Kinase (test code = 2157-6) 108 29-168 [facility] CampusProthrombin Izff9316-53-80 19:20:00* Test Item Value Reference Range Interpretation Comments Prothrombin Time (test code = 5902-2) 12.4 11.9-14.5 [facility] CampusProthromb Time International Ratio 2018-12-21 19:20:00* Test Item Value Reference Range Interpretation Comments Prothromb Time International Ratio (test code = 6301-6) 0.88 Oral Anticoagulant Therapy INR Values:1. Low Intensity Therapy 1.5 - 2.02 . Moderate Intensity Therapy 2.0 - 3.03. High Intensity Therapy(1) 2.5 - 3. 54. High Intensity Therapy(2) 3.0 - 4.05. Panic Value INR > 5.0 [facility] CampusActivated Partial Thromboplast Time 2018-12-21 19:20:00* Test Item Value Reference Range Interpretation Comments Activated Partial Thromboplast Time (test code = 32775-9) 31.5 23.8-35.5 [facility] CampusProthrombin Zmhm6564-56-89 19:20:00* Test Item Value Reference Range Interpretation Comments Prothrombin Time (test code = 5902-2) 12.4 11.9-14.5 [facility] CampusProthromb Time International Ratio 2018-12-21 19:20:00* Test Item Value Reference Range Interpretation Comments Prothromb Time International Ratio (test code = 6301-6) 0.88 Oral Anticoagulant Therapy INR Values:1. Low Intensity Therapy 1.5 - 2.02 . Moderate Intensity Therapy 2.0 - 3.03. High Intensity Therapy(1) 2.5 - 3. 54. High Intensity Therapy(2) 3.0 - 4.05. Panic Value INR > 5.0 [facility] CampusActivated Partial Thromboplast Time 2018-12-21 19:20:00* Test Item Value Reference Range Interpretation Comments Activated Partial Thromboplast Time (test code = 43170-7) 31.5 23.8-35.5 [facility] CampusProthrombin Cibo7171-27-25 19:20:00* Test Item Value Reference Range Interpretation Comments Prothrombin Time (test code = 5902-2) 12.4 11.9-14.5 [facility] CampusProthromb Time International Ratio 2018-12-21 19:20:00* Test Item Value Reference Range Interpretation Comments Prothromb Time International Ratio (test code = 6301-6) 0.88 Oral Anticoagulant Therapy INR Values:1. Low Intensity Therapy 1.5 - 2.02 . Moderate Intensity Therapy 2.0 - 3.03. High Intensity Therapy(1) 2.5 - 3. 54. High Intensity Therapy(2) 3.0 - 4.05. Panic Value INR > 5.0 [facility] CampusActivated Partial Thromboplast Time 2018-12-21 19:20:00* Test Item Value Reference Range Interpretation Comments Activated Partial Thromboplast Time (test code = 90909-3) 31.5 23.8-35.5 [facility] CampusProthrombin Qqnn5576-51-41 19:20:00* Test Item Value Reference Range Interpretation Comments Prothrombin Time (test code = 5902-2) 12.4 11.9-14.5 [facility] CampusProthromb Time International Ratio 2018-12-21 19:20:00* Test Item Value Reference Range Interpretation Comments Prothromb Time International Ratio (test code = 6301-6) 0.88 Oral Anticoagulant Therapy INR Values:1. Low Intensity Therapy 1.5 - 2.02 . Moderate Intensity Therapy 2.0 - 3.03. High Intensity Therapy(1) 2.5 - 3. 54. High Intensity Therapy(2) 3.0 - 4.05. Panic Value INR > 5.0 [facility] CampusActivated Partial Thromboplast Time 2018-12-21 19:20:00* Test Item Value Reference Range Interpretation Comments Activated Partial Thromboplast Time (test code = 78235-5) 31.5 23.8-35.5 [facility] CampusWhite Blood Nziwd3992-70-31 19:18:00* Test Item Value Reference Range Interpretation Comments White Blood Count (test code = 6690-2) 8.83 4.8-10.8 [facility] CampusRed Blood Vscdb6379-17-18 19:18:00* Test Item Value Reference Range Interpretation Comments Red Blood Count (test code = 789-8) 4.76 3.6-5.1 [facility] CampusHemoglobin2019-04-05 19:18:00* Test Item Value Reference Range Interpretation Comments Hemoglobin (test code = 75937-1) 14.4 12.0-16.0 [facility] CampusHematocrit2019-04-05 19:18:00* Test Item Value Reference Range Interpretation Comments Hematocrit (test code = 4544-3) 42.7 34.2-44.1 [facility] CampusMean Corpuscular Ajeqag9628-56-02 19:18:00* Test Item Value Reference Range Interpretation Comments Mean Corpuscular Volume (test code = 787-2) 89.7 81-99 [facility] CampusMean Corpuscular Ppmkrubwoo2594-26-91 19:18:00* Test Item Value Reference Range Interpretation Comments Mean Corpuscular Hemoglobin (test code = 785-6) 30.3 28-32 [facility] CampusMean Corpuscular Hemoglobin Concent 2018-12-21 19:18:00* Test Item Value Reference Range Interpretation Comments Mean Corpuscular Hemoglobin Concent (test code = 786-4) 33.7 31-35 [facility] CampusRed Cell Distribution Tczkr4127-51-61 19:18:00* Test Item Value Reference Range Interpretation Comments Red Cell Distribution Width (test code = 87977-6) 12.1 11.7 -14.4 [facility] CampusPlatelet Offgh9358-06-22 19:18:00* Test Item Value Reference Range Interpretation Comments Platelet Count (test code = 777-3) 239 140-360 [facility] CampusNeutrophils (%) (Auto)2018-12-21 19:18:00 * Test Item Value Reference Range Interpretation Comments Neutrophils (%) (Auto) (test code = 93945-0) 72.8 38.7-80.0 [facility] CampusLymphocytes (%) (Auto)2018-12-21 19:18:00 * Test Item Value Reference Range Interpretation Comments Lymphocytes (%) (Auto) (test code = 736-9) 17.0 18.0-39.1 L [facility] CampusMonocytes (%) (Auto)2018-12-21 19:18:00* Test Item Value Reference Range Interpretation Comments Monocytes (%) (Auto) (test code = 5905-5) 6.7 4.4-11.3 [facility] CampusEosinophils (%) (Auto)2018-12-21 19:18:00 * Test Item Value Reference Range Interpretation Comments Eosinophils (%) (Auto) (test code = 713-8) 2.2 0.0-6.0 [facility] CampusBasophils (%) (Auto)2018-12-21 19:18:00* Test Item Value Reference Range Interpretation Comments Basophils (%) (Auto) (test code = 706-2) 0.5 0.0-1.0 [facility] CampusIM GRANULOCYTES %2018-12-21 19:18:00* Test Item Value Reference Range Interpretation Comments IM GRANULOCYTES % (test code = IM GRANULOCYTES %) 0.8 0.0- 1.0 [facility] CampusNeutrophils # (Auto)2018-12-21 19:18:00* Test Item Value Reference Range Interpretation Comments Neutrophils # (Auto) (test code = 751-8) 6.4 2.1-6.9 [facility] CampusLymphocytes # (Auto)2018-12-21 19:18:00* Test Item Value Reference Range Interpretation Comments Lymphocytes # (Auto) (test code = 08847-5) 1.5 1.0-3.2 [facility] CampusMonocytes # (Auto)2018-12-21 19:18:00* Test Item Value Reference Range Interpretation Comments Monocytes # (Auto) (test code = 742-7) 0.6 0.2-0.8 [facility] CampusEosinophils # (Auto)2018-12-21 19:18:00* Test Item Value Reference Range Interpretation Comments Eosinophils # (Auto) (test code = 711-2) 0.2 0.0-0.4 [facility] CampusBasophils # (Auto)2018-12-21 19:18:00* Test Item Value Reference Range Interpretation Comments Basophils # (Auto) (test code = 704-7) 0.0 0.0-0.1 [facility] CampusAbsolute Immature Granulocyte (auto 2018-12-21 19:18:00* Test Item Value Reference Range Interpretation Comments Absolute Immature Granulocyte (auto (inocente t code = Absolute Immature Granulocyte (auto) 0.07 0-0.1 [facility] CampusUrine Uaykz0562-36-06 18:43:00* Test Item Value Reference Range Interpretation Comments Urine Color (test code = 5778-6) YELLOW YELLOW [facility] CampusUrine Izikscf8386-06-47 18:43:00* Test Item Value Reference Range Interpretation Comments Urine Clarity (test code = 17725-2) CLEAR CLEAR [facility] CampusUrine Specific Zzgawzn1704-55-31 18:43:00 * Test Item Value Reference Range Interpretation Comments Urine Specific Springer (test code = 5811-5) 1.015 1.010-1.02 5 [facility] CampusUrine [id number] 18:43:00* Test Item Value Reference Range Interpretation Comments Urine pH (test code = 52980-7) 8 5-7 H [facility] CampusUrine Leukocyte Rkhrmuaz0661-55-84 18:43:00* Test Item Value Reference Range Interpretation Comments Urine Leukocyte Esterase (test code = 5799-2) TRACE NEGATIVE H [facility] CampusUrine Hoocshh8464-69-14 18:43:00* Test Item Value Reference Range Interpretation Comments Urine Nitrite (test code = 04388-4) NEGATIVE NEGATIVE [facility] CampusU[facility] Prgxebu7192-57-66 18:43:00* Test Item Value Reference Range Interpretation Comments Urine Protein (test code = 5804-0) NEGATIVE NEGATIVE [facility] CampusUrine Glucose (UA)2018-12-21 18:43:00* Test Item Value Reference Range Interpretation Comments Urine Glucose (UA) (test code = 2349-9) NEGATIVE NEGATIVE [facility] CampusUrine Vhwmycn6698-14-31 18:43:00* Test Item Value Reference Range Interpretation Comments Urine Ketones (test code = 43185-7) NEGATIVE NEGATIVE [facility] CampusU[facility] Wknjzqhcupzd8266-54-92 18:43:00* Test Item Value Reference Range Interpretation Comments Urine Urobilinogen (test code = 94592-7) 0.2 0.2-1 [facility] CampusU[facility] Tcfcjnulq0453-17-43 18:43:00* Test Item Value Reference Range Interpretation Comments Urine Bilirubin (test code = 1978-6) NEGATIVE NEGATIVE [facility] CampusU[facility] Juqnn1415-79-79 18:43:00* Test Item Value Reference Range Interpretation Comments Urine Blood (test code = 05630-1) 2+ NEGATIVE H [facility] CampusUrine NQK7247-03-09 18:43:00* Test Item Value Reference Range Interpretation Comments Urine WBC (test code = 5821-4) 6-10 0-5 H [facility] CampusUrine MBQ9636-08-25 18:43:00* Test Item Value Reference Range Interpretation Comments Urine RBC (test code = 30508-4) 6-10 0-5 H [facility] CampusUrine Ghndtble5194-01-24 18:43:00* Test Item Value Reference Range Interpretation Comments Urine Bacteria (test code = 22466-3) MANY NONE H [facility] CampusUrine Epithelial Vtmbn2316-07-99 18:43:00 * Test Item Value Reference Range Interpretation Comments Urine Epithelial Cells (test code = 69016-7) FEW NONE [facility] CampusUrine Psepe7675-06-37 18:43:00* Test Item Value Reference Range Interpretation Comments Urine Color (test code = 5778-6) YELLOW YELLOW [facility] CampusUrine Vsmdgle2540-74-95 18:43:00* Test Item Value Reference Range Interpretation Comments Urine Clarity (test code = 45972-1) CLEAR CLEAR [facility] CampusU[facility] Specific Aoutpms5076-91-61 18:43:00 * Test Item Value Reference Range Interpretation Comments Urine Specific Springer (test code = 5811-5) 1.015 1.010-1.02 5 [facility] CampusUrine oN1281-38-36 18:43:00* Test Item Value Reference Range Interpretation Comments Urine pH (test code = 23121-7) 8 5-7 H [facility] Leukocyte Qtiyfnks4269-15-27 18:43:00* Test Item Value Reference Range Interpretation Comments Urine Leukocyte Esterase (test code = 5799-2) TRACE NEGATIVE H [facility] Gpmlfyg3723-95-48 18:43:00* Test Item Value Reference Range Interpretation Comments Urine Nitrite (test code = 39098-8) NEGATIVE NEGATIVE [facility] Yaktefd1126-61-46 18:43:00* Test Item Value Reference Range Interpretation Comments Urine Protein (test code = 5804-0) NEGATIVE NEGATIVE [facility] Glucose (UA)2018-12-21 18:43:00* Test Item Value Reference Range Interpretation Comments Urine Glucose (UA) (test code = 2349-9) NEGATIVE NEGATIVE [facility] Yxwqrhv8599-36-62 18:43:00* Test Item Value Reference Range Interpretation Comments Urine Ketones (test code = 27658-1) NEGATIVE NEGATIVE [facility] Irqemgufgrie2420-58-44 18:43:00* Test Item Value Reference Range Interpretation Comments Urine Urobilinogen (test code = 56909-0) 0.2 0.2-1 [facility] Uwtkhijiv6441-60-19 18:43:00* Test Item Value Reference Range Interpretation Comments Urine Bilirubin (test code = 1978-6) NEGATIVE NEGATIVE [facility] Huibf1371-66-55 18:43:00* Test Item Value Reference Range Interpretation Comments Urine Blood (test code = 79653-4) 2+ NEGATIVE H [facility] CampusU[facility] QTK1060-01-98 18:43:00* Test Item Value Reference Range Interpretation Comments Urine WBC (test code = 5821-4) 6-10 0-5 H [facility] CampusUrine VZO6738-18-17 18:43:00* Test Item Value Reference Range Interpretation Comments Urine RBC (test code = 00979-8) 6-10 0-5 H [facility] CampusUrine Jiitpszj8783-41-12 18:43:00* Test Item Value Reference Range Interpretation Comments Urine Bacteria (test code = 68498-9) MANY NONE H [facility] CampusUrine Epithelial Smygn9720-66-72 18:43:00 * Test Item Value Reference Range Interpretation Comments Urine Epithelial Cells (test code = 04605-0) FEW NONE [facility] CampusCreatine Kinase [id number] 04:59:00* Test Item Value Reference Range Interpretation Comments Creatine Kinase MB (test code = 44328-8) 4.70 0-5.0 [facility] CampusTroponin B5064-71-78 04:59:00* Test Item Value Reference Range Interpretation Comments Troponin I (test code = XTF3713) 0.005 0-0.300 [facility] CampusCreatine Zfdqmi1547-68-08 04:55:00* Test Item Value Reference Range Interpretation Comments Creatine Kinase (test code = 2157-6) 103 29-168 [facility] Tyslu9438-71-97 01:44:00* Test Item Value Reference Range Interpretation Comments Sodium Level (test code = 2951-2) 135 136-145 L [facility] CampusPotassium Tcjxf6222-83-04 01:44:00* Test Item Value Reference Range Interpretation Comments Potassium Level (test code = 2823-3) 3.9 3.5-5.1 [facility] CampusChloride Hjrij7714-06-60 01:44:00* Test Item Value Reference Range Interpretation Comments Chloride Level (test code = 2075-0) 101 98-107 [facility] CampusAnion Buk6685-66-72 01:39:00* Test Item Value Reference Range Interpretation Comments Anion Gap (test code = 37591-3) 12.9 8-16 [facility] CampusMagnesium Cecnd4779-73-85 01:39:00* Test Item Value Reference Range Interpretation Comments Magnesium Level (test code = 07451-5) 2.0 1.3-2.1 [facility] CampusCarbon Dioxide Qkkxe6337-68-21 01:34:00* Test Item Value Reference Range Interpretation Comments Carbon Dioxide Level (test code = 2028-9) 25 - [facility] CampusBlood Urea Ahrrsohd8888-81-27 01:34:00* Test Item Value Reference Range Interpretation Comments Blood Urea Nitrogen (test code = 3094-0) 17 7- [facility] CampusCreatinine2018-05-13 01:34:00* Test Item Value Reference Range Interpretation Comments Creatinine (test code = 2160-0) 0.89 0.57-1.11 [facility] CampusBUN/Creatinine Ttsek3828-24-71 01:34:00* Test Item Value Reference Range Interpretation Comments BUN/Creatinine Ratio (test code = 3097-3) 19 6- [facility] CampusEstimat Glomerular Filtration Rate 2018-01-28 01:34:00* Test Item Value Reference Range Interpretation Comments Estimat Glomerular Filtration Rate (test code = 60526-7) 60 >60 Ranges were taken from the National Kidney Disease Education Program and the [facility] Kid[facility] Foundation literature.Reference ranges:60 or greater: Pngfbs05-98 ( for 3 consecutive months): Chronic kidney disease 15 or less: Kidney failureThe [facility] of [facility] CampusGlucose Jsdqd1628-38-26 01:34:00* Test Item Value Reference Range Interpretation Comments Glucose Level (test code = NXC2003) 106 74-118 [facility] CampusCalcium Wuyxe0148-61-28 01:34:00* Test Item Value Reference Range Interpretation Comments Calcium Level (test code = 37159-5) 9.7 8.4-10.2 [facility] CampusTotal Sikwhwcpg3277-19-28 01:34:00* Test Item Value Reference Range Interpretation Comments Total Bilirubin (test code = 1975-2) 0.4 0.2-1.2 [facility] CampusAspartate Amino Transf (AST/SGOT) 2018-01-28 01:34:00* Test Item Value Reference Range Interpretation Comments Aspartate Amino Transf (AST/SGOT) (test code = Aspartate Amino Transf (AST/SGOT)) 20 5-34 [facility] CampusAlanine Aminotransferase (ALT/SGPT) 2018-01-28 01:34:00* Test Item Value Reference Range Interpretation Comments Alanine Aminotransferase (ALT/SGPT) (test code = 1742-6) 14 0-55 [facility] CampusTotal Ikcpyin8138-88-42 01:34:00* Test Item Value Reference Range Interpretation Comments Total Protein (test code = 2885-2) 7.0 6.5-8.1 [facility] CampusAlbumin2018-05-13 01:34:00* Test Item Value Reference Range Interpretation Comments Albumin (test code = 1751-7) 3.6 3.5-5.0 [facility] CampusGlobulin2018-05-13 01:34:00* Test Item Value Reference Range Interpretation Comments Globulin (test code = 23950-5) 3.4 2.3-3.5 [facility] CampusAlbumin/Globulin Kcbck0438-32-66 01:34:00 * Test Item Value Reference Range Interpretation Comments Albumin/Globulin Ratio (test code = 1759-0) 1.1 0.8-2.0 [facility] CampusAlkaline Veocdkadigx3898-91-54 01:34:00* Test Item Value Reference Range Interpretation Comments Alkaline Phosphatase (test code = 6768-6) 88 40-150 [facility] CampusActivated Partial Thromboplast Time 2018-01-28 01:21:00* Test Item Value Reference Range Interpretation Comments Activated Partial Thromboplast Time (test code = 62838-0) 29.7 23.8-35.5 [facility] CampusUrine LVF9422-17-42 01:20:00* Test Item Value Reference Range Interpretation Comments Urine WBC (test code = 5821-4) 0-5 0-5 [facility] CampusUrine BZW8054-69-02 01:20:00* Test Item Value Reference Range Interpretation Comments Urine RBC (test code = 72825-7) 6-10 0-5 H [facility] CampusUrine Ezvrmkky0179-37-65 01:20:00* Test Item Value Reference Range Interpretation Comments Urine Bacteria (test code = 35955-4) NONE NONE [facility] CampusUrine Epithelial Hwgex8757-46-86 01:20:00 * Test Item Value Reference Range Interpretation Comments Urine Epithelial Cells (test code = 62879-3) NONE NONE [facility] CampusUrine Ysguz4333-94-47 01:17:00* Test Item Value Reference Range Interpretation Comments Urine Color (test code = 5778-6) YELLOW YELLOW [facility] CampusUrine Inffljx1617-51-37 01:17:00* Test Item Value Reference Range Interpretation Comments Urine Clarity (test code = 79317-9) CLEAR CLEAR [facility] Specific Vorhccz7043-28-73 01:17:00 * Test Item Value Reference Range Interpretation Comments Urine Specific Springer (test code = 5811-5) 1.015 1.010-1.02 5 [facility] CampusUrine eO2908-63-29 01:17:00* Test Item Value Reference Range Interpretation Comments Urine pH (test code = 85907-8) 7 5-7 [facility] CampusUrine Leukocyte Taimlocw3899-82-47 01:17:00* Test Item Value Reference Range Interpretation Comments Urine Leukocyte Esterase (test code = 5799-2) NEGATIVE NEGATIVE [facility] CampusUrine Eainzdy2668-27-20 01:17:00* Test Item Value Reference Range Interpretation Comments Urine Nitrite (test code = 89333-3) NEGATIVE NEGATIVE [facility] CampusUrine Krxgjcx1868-69-81 01:17:00* Test Item Value Reference Range Interpretation Comments Urine Protein (test code = 5804-0) NEGATIVE NEGATIVE [facility] CampusUrine Glucose (UA)2018-01-28 01:17:00* Test Item Value Reference Range Interpretation Comments Urine Glucose (UA) (test code = 2349-9) NEGATIVE NEGATIVE [facility] CampusUrine Ffivpff5785-72-03 01:17:00* Test Item Value Reference Range Interpretation Comments Urine Ketones (test code = 84986-6) NEGATIVE NEGATIVE [facility] CampusUrine Vpfpxcivuchh0528-62-95 01:17:00* Test Item Value Reference Range Interpretation Comments Urine Urobilinogen (test code = 12322-9) 0.2 0.2-1 [facility] CampusUrine Yynbhoroj0407-23-75 01:17:00* Test Item Value Reference Range Interpretation Comments Urine Bilirubin (test code = 1978-6) NEGATIVE NEGATIVE [facility] CampusUrine Obpsk3206-28-14 01:17:00* Test Item Value Reference Range Interpretation Comments Urine Blood (test code = 47484-3) TRACE NEGATIVE H [facility] CampusProthrombin Fgvy0813-13-65 01:16:00* Test Item Value Reference Range Interpretation Comments Prothrombin Time (test code = 5902-2) 12.6 11.9-14.5 [facility] CampusProthromb Time International Ratio 2018-01-28 01:16:00* Test Item Value Reference Range Interpretation Comments Prothromb Time International Ratio (test code = 6301-6) 1.02 Oral Anticoagulant Therapy INR Values:1. Low Intensity Therapy 1.5 - 2.02 . Moderate Intensity Therapy 2.0 - 3.03. High Intensity Therapy(1) 2.5 - 3. 54. High Intensity Therapy(2) 3.0 - 4.05. Panic Value INR > 5.0 [facility] CampusWhite Blood Zvzsg5362-51-45 01:13:00* Test Item Value Reference Range Interpretation Comments White Blood Count (test code = 6690-2) 6.94 4.8-10.8 [facility] CampusRed Blood Hxcea6090-39-30 01:13:00* Test Item Value Reference Range Interpretation Comments Red Blood Count (test code = 789-8) 4.21 3.6-5.1 [facility] CampusHemoglobin2018-05-13 01:13:00* Test Item Value Reference Range Interpretation Comments Hemoglobin (test code = 67057-4) 12.5 12.0-16.0 [facility] CampusHematocrit2018-05-13 01:13:00* Test Item Value Reference Range Interpretation Comments Hematocrit (test code = 4544-3) 37.3 34.2-44.1 [facility] CampusMean Corpuscular Zcteaz8127-46-66 01:13:00* Test Item Value Reference Range Interpretation Comments Mean Corpuscular Volume (test code = 787-2) 88.6 81-99 [facility] CampusMean Corpuscular Glygijurxr7447-46-57 01:13:00* Test Item Value Reference Range Interpretation Comments Mean Corpuscular Hemoglobin (test code = 785-6) 29.7 28-32 [facility] CampusMean Corpuscular Hemoglobin Concent 2018-01-28 01:13:00* Test Item Value Reference Range Interpretation Comments Mean Corpuscular Hemoglobin Concent (test code = 786-4) 33.5 31-35 [facility] CampusRed Cell Distribution Jbzlc3043-50-28 01:13:00* Test Item Value Reference Range Interpretation Comments Red Cell Distribution Width (test code = 10687-8) 13.2 11.7 -14.4 [facility] CampusPlatelet Ffrim2519-02-33 01:13:00* Test Item Value Reference Range Interpretation Comments Platelet Count (test code = 777-3) 240 140-360 [facility] CampusNeutrophils (%) (Auto)2018-01-28 01:13:00 * Test Item Value Reference Range Interpretation Comments Neutrophils (%) (Auto) (test code = 79848-6) 63.6 38.7-80.0 [facility] CampusLymphocytes (%) (Auto)2018-01-28 01:13:00 * Test Item Value Reference Range Interpretation Comments Lymphocytes (%) (Auto) (test code = 736-9) 21.0 18.0-39.1 [facility] CampusMonocytes (%) (Auto)2018-01-28 01:13:00* Test Item Value Reference Range Interpretation Comments Monocytes (%) (Auto) (test code = 5905-5) 10.4 4.4-11.3 [facility] CampusEosinophils (%) (Auto)2018-01-28 01:13:00 * Test Item Value Reference Range Interpretation Comments Eosinophils (%) (Auto) (test code = 713-8) 4.0 0.0-6.0 [facility] CampusBasophils (%) (Auto)2018-01-28 01:13:00* Test Item Value Reference Range Interpretation Comments Basophils (%) (Auto) (test code = 706-2) 0.4 0.0-1.0 [facility] CampusIM GRANULOCYTES %2018-01-28 01:13:00* Test Item Value Reference Range Interpretation Comments IM GRANULOCYTES % (test code = IM GRANULOCYTES %) 0.6 0.0- 1.0 [facility] CampusNeutrophils # (Auto)2018-01-28 01:13:00* Test Item Value Reference Range Interpretation Comments Neutrophils # (Auto) (test code = 751-8) 4.4 2.1-6.9 [facility] CampusLymphocytes # (Auto)2018-01-28 01:13:00* Test Item Value Reference Range Interpretation Comments Lymphocytes # (Auto) (test code = 15299-7) 1.5 1.0-3.2 [facility] CampusMonocytes # (Auto)2018-01-28 01:13:00* Test Item Value Reference Range Interpretation Comments Monocytes # (Auto) (test code = 742-7) 0.7 0.2-0.8 [facility] CampusEosinophils # (Auto)2018-01-28 01:13:00* Test Item Value Reference Range Interpretation Comments Eosinophils # (Auto) (test code = 711-2) 0.3 0.0-0.4 [facility] CampusBasophils # (Auto)2018-01-28 01:13:00* Test Item Value Reference Range Interpretation Comments Basophils # (Auto) (test code = 704-7) 0.0 0.0-0.1 [facility] CampusAbsolute Immature Granulocyte (auto 2018-01-28 01:13:00* Test Item Value Reference Range Interpretation Comments Absolute Immature Granulocyte (auto (inocente t code = Absolute Immature Granulocyte (auto) 0.04 0-0.1 [facility] Bvuhk0498-00-11 09:37:00* Test Item Value Reference Range Interpretation Comments Sodium Level (test code = 2951-2) 136 136-145 [facility] CampusPotassium Jklnk1896-21-17 09:37:00* Test Item Value Reference Range Interpretation Comments Potassium Level (test code = 2823-3) 4.2 3.5-5.1 [facility] CampusChloride Ptobk9564-25-66 09:37:00* Test Item Value Reference Range Interpretation Comments Chloride Level (test code = 2075-0) 97 98-107 L [facility] CampusCarbon Dioxide Qzvub4639-14-05 09:37:00* Test Item Value Reference Range Interpretation Comments Carbon Dioxide Level (test code = 2028-9) 27 22-29 [facility] CampusAnion Vcm8362-51-83 09:37:00* Test Item Value Reference Range Interpretation Comments Anion Gap (test code = 03187-0) 16.2 8-16 H [facility] CampusBlood Urea Pzjcpyrx4840-09-43 09:37:00* Test Item Value Reference Range Interpretation Comments Blood Urea Nitrogen (test code = 3094-0) 17 7-26 [facility] CampusCreatinine2018-04-25 09:37:00* Test Item Value Reference Range Interpretation Comments Creatinine (test code = 2160-0) 1.04 0.57-1.11 [facility] CampusBUN/Creatinine Mcshc6291-55-02 09:37:00* Test Item Value Reference Range Interpretation Comments BUN/Creatinine Ratio (test code = 3097-3) 16 6-25 [facility] CampusEstimat Glomerular Filtration Rate 2018-01-10 09:37:00* Test Item Value Reference Range Interpretation Comments Estimat Glomerular Filtration Rate (test code = 09520-8) 50 >60 L Ranges were taken from the National Kidney Disease Education Program and the [facility] Kid[facility] Foundation literature.Reference ranges:60 or greater: Klcwlb52-33 ( for 3 consecutive months): Chronic kidney disease 15 or less: Kidney failureThe [facility] CampusGlucose Zqusw6975-50-92 09:37:00* Test Item Value Reference Range Interpretation Comments Glucose Level (test code = ZRM9137) 165 74-118 H [facility] CampusCalcium Acbkc2559-37-40 09:37:00* Test Item Value Reference Range Interpretation Comments Calcium Level (test code = 67770-4) 9.6 8.4-10.2 [facility] CampusUrine Zvjjlnlybs4859-58-38 06:16:00* Test Item Value Reference Range Interpretation Comments Urine Osmolality (test code = 2695-5) 217 . 24 hr : 300 - 900 Random: 50 - 1400 After 12hr fluid restriction: >850Performed at: [facility] [address] [id number] Director: EARNEST Amaral MD, Phone: [phone] County Hospitalerum Osmolality 2018-01-09 06:16:00* Test Item Value Reference Range Interpretation Comments Serum Osmolality (test code = 2692-2) 243 280-301 L Verified by repeat analysisPerformed at: [facility] [address] [id number] Director: EARNEST Amaral MD, Phone: [phone] [facility] CampusUrine Ymvecjkdqs6879-71-99 06:16:00* Test Item Value Reference Range Interpretation Comments Urine Osmolality (test code = 2695-5) 217 . 24 hr : 300 - 900 Random: 50 - 1400 After 12hr fluid restriction: >850Performed at: [facility] [address] [id number] Director: EARNEST Amaral MD, Phone: [phone] County Hospitalerum Osmolality 2018-01-09 06:16:00* Test Item Value Reference Range Interpretation Comments Serum Osmolality (test code = 2692-2) 243 280-301 L Verified by repeat analysisPerformed at: [facility] [address] [place] [id number] Director: EARNEST Amaral MD, Phone: [phone] [facility] CampusMagnesium Olnhn5714-13-56 06:59:00* Test Item Value Reference Range Interpretation Comments Magnesium Level (test code = 57609-5) 2.3 1.3-2.1 H [facility] CampusWhite Blood Gbwkw9453-38-42 06:17:00* Test Item Value Reference Range Interpretation Comments White Blood Count (test code = 6690-2) 7.81 4.8-10.8 [facility] CampusRed Blood Hwpjz0186-78-92 06:17:00* Test Item Value Reference Range Interpretation Comments Red Blood Count (test code = 789-8) 3.61 3.6-5.1 [facility] CampusHemoglobin2018-04-23 06:17:00* Test Item Value Reference Range Interpretation Comments Hemoglobin (test code = 74540-9) 10.6 12.0-16.0 L [facility] CampusHematocrit2018-04-23 06:17:00* Test Item Value Reference Range Interpretation Comments Hematocrit (test code = 4544-3) 31.5 34.2-44.1 L [facility] CampusMean Corpuscular Zsfdcm5955-99-76 06:17:00* Test Item Value Reference Range Interpretation Comments Mean Corpuscular Volume (test code = 787-2) 87.3 81-99 [facility] CampusMean Corpuscular Gzqcokcyke8686-22-10 06:17:00* Test Item Value Reference Range Interpretation Comments Mean Corpuscular Hemoglobin (test code = 785-6) 29.4 28-32 [facility] CampusMean Corpuscular Hemoglobin Concent 2018-01-08 06:17:00* Test Item Value Reference Range Interpretation Comments Mean Corpuscular Hemoglobin Concent (test code = 786-4) 33.7 31-35 [facility] CampusRed Cell Distribution Dzfne9369-32-42 06:17:00* Test Item Value Reference Range Interpretation Comments Red Cell Distribution Width (test code = 49933-3) 13.2 11.7 -14.4 [facility] CampusPlatelet Jausl8280-96-85 06:17:00* Test Item Value Reference Range Interpretation Comments Platelet Count (test code = 777-3) 231 140-360 [facility] CampusNeutrophils (%) (Auto)2018-01-08 06:17:00 * Test Item Value Reference Range Interpretation Comments Neutrophils (%) (Auto) (test code = 51390-5) 61.8 38.7-80.0 [facility] CampusLymphocytes (%) (Auto)2018-01-08 06:17:00 * Test Item Value Reference Range Interpretation Comments Lymphocytes (%) (Auto) (test code = 736-9) 17.4 18.0-39.1 L [facility] CampusMonocytes (%) (Auto)2018-01-08 06:17:00* Test Item Value Reference Range Interpretation Comments Monocytes (%) (Auto) (test code = 5905-5) 12.5 4.4-11.3 H [facility] CampusEosinophils (%) (Auto)2018-01-08 06:17:00 * Test Item Value Reference Range Interpretation Comments Eosinophils (%) (Auto) (test code = 713-8) 6.9 0.0-6.0 H [facility] CampusBasophils (%) (Auto)2018-01-08 06:17:00* Test Item Value Reference Range Interpretation Comments Basophils (%) (Auto) (test code = 706-2) 0.6 0.0-1.0 [facility] CampusIM GRANULOCYTES %2018-01-08 06:17:00* Test Item Value Reference Range Interpretation Comments IM GRANULOCYTES % (test code = IM GRANULOCYTES %) 0.8 0.0- 1.0 [facility] CampusNeutrophils # (Auto)2018-01-08 06:17:00* Test Item Value Reference Range Interpretation Comments Neutrophils # (Auto) (test code = 751-8) 4.8 2.1-6.9 [facility] CampusLymphocytes # (Auto)2018-01-08 06:17:00* Test Item Value Reference Range Interpretation Comments Lymphocytes # (Auto) (test code = 71333-7) 1.4 1.0-3.2 [facility] CampusMonocytes # (Auto)2018-01-08 06:17:00* Test Item Value Reference Range Interpretation Comments Monocytes # (Auto) (test code = 742-7) 1.0 0.2-0.8 H [facility] CampusEosinophils # (Auto)2018-01-08 06:17:00* Test Item Value Reference Range Interpretation Comments Eosinophils # (Auto) (test code = 711-2) 0.5 0.0-0.4 H [facility] CampusBasophils # (Auto)2018-01-08 06:17:00* Test Item Value Reference Range Interpretation Comments Basophils # (Auto) (test code = 704-7) 0.1 0.0-0.1 [facility] CampusAbsolute Immature Granulocyte (auto 2018-01-08 06:17:00* Test Item Value Reference Range Interpretation Comments Absolute Immature Granulocyte (auto (inocente t code = Absolute Immature Granulocyte (auto) 0.06 0-0.1 [facility] CampusUrine Chloride mmol/Nrk8016-69-05 06:13:00* Test Item Value Reference Range Interpretation Comments Urine Chloride mmol/Day (test code = 65213-4) Comment 110-250 No total volume submitted. Unable to calculate 24 hourresult.Performed at: [facility] [id number] Director: Drew alfaro MD, Phone: [phone] [facility] CampusUrine Chloride mmol/Evf2373-05-55 06:13:00* Test Item Value Reference Range Interpretation Comments Urine Chloride mmol/Day (test code = 97334-0) Comment 110-250 No total volume submitted. Unable to calculate 24 hourresult.Performed at: [facility] [id number] Director: Drew alfaro MD, Phone: [phone] [facility] CampusUrine Chloride 2018-01-07 12:27:00* Test Item Value Reference Range Interpretation Comments Urine Chloride (test code = 82723-1) 53 [facility] CampusUrine Ekgzjlzu3119-34-54 12:27:00* Test Item Value Reference Range Interpretation Comments Urine Chloride (test code = 11051-8) 53 [facility] CampusTotal Wtrdsawnz3423-36-23 05:31:00* Test Item Value Reference Range Interpretation Comments Total Bilirubin (test code = 1975-2) 0.4 0.2-1.2 [facility] CampusAspartate Amino Transf (AST/SGOT) 2018-01-07 05:31:00* Test Item Value Reference Range Interpretation Comments Aspartate Amino Transf (AST/SGOT) (test code = Aspartate Amino Transf (AST/SGOT)) 23 5-34 [facility] CampusAlanine Aminotransferase (ALT/SGPT) 2018-01-07 05:31:00* Test Item Value Reference Range Interpretation Comments Alanine Aminotransferase (ALT/SGPT) (test code = 1742-6) 9 0-55 [facility] CampusTotal Obmemfa3322-30-93 05:31:00* Test Item Value Reference Range Interpretation Comments Total Protein (test code = 2885-2) 5.1 6.5-8.1 L [facility] CampusAlbumin2018-04-22 05:31:00* Test Item Value Reference Range Interpretation Comments Albumin (test code = 1751-7) 2.6 3.5-5.0 L [facility] CampusGlobulin2018-04-22 05:31:00* Test Item Value Reference Range Interpretation Comments Globulin (test code = 52201-5) 2.5 2.3-3.5 [facility] CampusAlbumin/Globulin Yfmkd0956-77-06 05:31:00 * Test Item Value Reference Range Interpretation Comments Albumin/Globulin Ratio (test code = 1759-0) 1.0 0.8-2.0 [facility] CampusAlkaline Xztskrqypqm2494-45-66 05:31:00* Test Item Value Reference Range Interpretation Comments Alkaline Phosphatase (test code = 6768-6) 58 40-150 [facility] CampusUrine LOE9070-81-95 23:48:00* Test Item Value Reference Range Interpretation Comments Urine WBC (test code = 5821-4) 0-5 0-5 [facility] CampusUrine WPG7559-98-53 23:48:00* Test Item Value Reference Range Interpretation Comments Urine RBC (test code = 77700-0) 6-10 0-5 H [facility] CampusUrine Mtybxxhg8867-75-42 23:48:00* Test Item Value Reference Range Interpretation Comments Urine Bacteria (test code = 77727-4) NONE NONE [facility] CampusUrine Epithelial Briyl6823-87-06 23:48:00 * Test Item Value Reference Range Interpretation Comments Urine Epithelial Cells (test code = 32152-1) RARE NONE [facility] CampusUrine Hkjut2087-05-18 23:37:00* Test Item Value Reference Range Interpretation Comments Urine Color (test code = 5778-6) YELLOW YELLOW [facility] CampusUrine Qimzrlc6507-72-00 23:37:00* Test Item Value Reference Range Interpretation Comments Urine Clarity (test code = 19040-2) CLEAR CLEAR [facility] CampusUrine Specific Moxhkho2554-51-11 23:37:00 * Test Item Value Reference Range Interpretation Comments Urine Specific Springer (test code = 5811-5) 1.015 1.010-1.02 5 [facility] CampusUrine cA5402-24-40 23:37:00* Test Item Value Reference Range Interpretation Comments Urine pH (test code = 49685-0) 7 5-7 [facility] CampusUrine Leukocyte Vhvmfibd2342-41-64 23:37:00* Test Item Value Reference Range Interpretation Comments Urine Leukocyte Esterase (test code = 5799-2) NEGATIVE NEGATIVE [facility] CampusUrine Lowbilq8040-42-04 23:37:00* Test Item Value Reference Range Interpretation Comments Urine Nitrite (test code = 78399-0) NEGATIVE NEGATIVE [facility] CampusUrine Zuzjaft6487-26-97 23:37:00* Test Item Value Reference Range Interpretation Comments Urine Protein (test code = 5804-0) 1+ NEGATIVE H [facility] CampusUrine Glucose (UA)2018-01-05 23:37:00* Test Item Value Reference Range Interpretation Comments Urine Glucose (UA) (test code = 2349-9) NEGATIVE NEGATIVE [facility] CampusUrine Dkocxkc6083-55-32 23:37:00* Test Item Value Reference Range Interpretation Comments Urine Ketones (test code = 68325-8) 1+ NEGATIVE H [facility] CampusUrine Dnhguxwkmvuh7110-80-42 23:37:00* Test Item Value Reference Range Interpretation Comments Urine Urobilinogen (test code = 12758-4) 0.2 0.2-1 [facility] CampusUrine Edazyykvt7262-81-91 23:37:00* Test Item Value Reference Range Interpretation Comments Urine Bilirubin (test code = 1978-6) NEGATIVE NEGATIVE [facility] CampusUrine Jtjiq6562-76-30 23:37:00* Test Item Value Reference Range Interpretation Comments Urine Blood (test code = 02591-0) TRACE NEGATIVE H [facility] Opiates Zuhuqb0729-18-61 18:58:00* Test Item Value Reference Range Interpretation Comments Urine Opiates Screen (test code = 08751-9) NEGATIVE NEGATIVE [facility] CampusUrine Barbiturates Xywkel6568-17-03 18:58:00* Test Item Value Reference Range Interpretation Comments Urine Barbiturates Screen (test code = 433174060) NEGATIVE NEGA TIVE [facility] CampusUrine Phencyclidine Hltvjc8277-12-46 18:58:00* Test Item Value Reference Range Interpretation Comments Urine Phencyclidine Screen (test code = 80313-7) NEGATIVE NEGAT ASHLEY [facility] CampusUrine Amphetamines Htalht0829-57-65 18:58:00* Test Item Value Reference Range Interpretation Comments Urine Amphetamines Screen (test code = 17834-9) NEGATIVE NEGATI VE [facility] CampusUrine Methamphetamines Qifsqm8847-57-90 18:58:00* Test Item Value Reference Range Interpretation Comments Urine Methamphetamines Screen (test code = Urine Metha mphetamines Screen) NEGATIVE NEGATIVE [facility] CampusUrine Benzodiazepines Qchtel3986-35-00 18:58:00* Test Item Value Reference Range Interpretation Comments Urine Benzodiazepines Screen (test code = 67587-2) NEGATIVE NEG ATIVE [facility] CampusUrine Cocaine Hdbbmb0198-52-19 18:58:00* Test Item Value Reference Range Interpretation Comments Urine Cocaine Screen (test code = 3398-5) NEGATIVE NEGATIVE [facility] CampusUrine Cannabinoids Wvacoj7761-87-63 18:58:00* Test Item Value Reference Range Interpretation Comments Urine Cannabinoids Screen (test code = 31547-9) NEGATIVE NEGATI VE THESE RESULTS ARE FOR MEDICAL TREATMENT ONLYTHIS REPORT CONTAINS UNCONFIR MED SCREENING RESULTS*POSITIVE RESULTS WILL BE CONFIRMED BY REFERENCE LAB UPON R EQUEST CUT-OFFDRUG CLASS CONCENTRATION ng/mLAmphetamines 1000Methamphetamines 1000Cocaine 300Opiate 300Phencyc lidine 25Cannabinoid 50Barbiturates 300Benzodiazepine 300Methadone 300[facility] Methadone Lfenbk5283-36-76 18:58:00* Test Item Value Reference Range Interpretation Comments Urine Methadone Screen (test code = 94538-7) NEGATIVE NEGATIVE THESE RESULTS ARE FOR MEDICAL TREATMENT ONLYTHIS REPORT CONTAINS UNCONFIR MED SCREENING RESULTS*POSITIVE RESULTS WILL BE CONFIRMED BY REFERENCE LAB UPON R EQUEST CUT-OFFDRUG CLASS CONCENTRATION ng/mLAmphetamines 1000Methamphetamines 1000Cocaine Metabolite 300Opiate 300Phencyc lidine 25Cannabinoid 50Barbiturates 300Benzodiazepine 300Methadone 300[facility] HospitalUrine Opiates Umgwpv3157-40-03 18:58:00* Test Item Value Reference Range Interpretation Comments Urine Opiates Screen (test code = 78295-6) NEGATIVE NEGATIVE [facility] CampusUrine Barbiturates Lzkcmu4090-37-79 18:58:00* Test Item Value Reference Range Interpretation Comments Urine Barbiturates Screen (test code = 948921350) NEGATIVE NEGA TIVE [facility] CampusUrine Phencyclidine Yrkjaa9265-67-64 18:58:00* Test Item Value Reference Range Interpretation Comments Urine Phencyclidine Screen (test code = 15183-9) NEGATIVE NEGAT ASHLEY [facility] CampusUrine Amphetamines Sjwyuw6651-43-59 18:58:00* Test Item Value Reference Range Interpretation Comments Urine Amphetamines Screen (test code = 02717-3) NEGATIVE NEGATI VE [facility] CampusUrine Methamphetamines Eniuby8090-96-28 18:58:00* Test Item Value Reference Range Interpretation Comments Urine Methamphetamines Screen (test code = Urine Metha mphetamines Screen) NEGATIVE NEGATIVE [facility] CampusUrine Benzodiazepines Bdjdig8615-79-22 18:58:00* Test Item Value Reference Range Interpretation Comments Urine Benzodiazepines Screen (test code = 38220-3) NEGATIVE NEG ATIVE [facility] CampusUrine Cocaine Graajj6443-81-83 18:58:00* Test Item Value Reference Range Interpretation Comments Urine Cocaine Screen (test code = 3398-5) NEGATIVE NEGATIVE [facility] CampusUrine Cannabinoids Njakri0697-87-71 18:58:00* Test Item Value Reference Range Interpretation Comments Urine Cannabinoids Screen (test code = 28937-0) NEGATIVE NEGATI VE THESE RESULTS ARE FOR MEDICAL TREATMENT ONLYTHIS REPORT CONTAINS UNCONFIR MED SCREENING RESULTS*POSITIVE RESULTS WILL BE CONFIRMED BY REFERENCE LAB UPON R EQUEST CUT-OFFDRUG CLASS CONCENTRATION ng/mLAmphetamines 1000Methamphetamines 1000Cocaine 300Opiate 300Phencyc lidine 25Cannabinoid 50Barbiturates 300Benzodiazepine 300Methadone 300[facility] HospitalUrine Methadone Ccwnbl7602-48-30 18:58:00* Test Item Value Reference Range Interpretation Comments Urine Methadone Screen (test code = 31352-6) NEGATIVE NEGATIVE THESE RESULTS ARE FOR MEDICAL TREATMENT ONLYTHIS REPORT CONTAINS UNCONFIR MED SCREENING RESULTS*POSITIVE RESULTS WILL BE CONFIRMED BY REFERENCE LAB UPON R EQUEST CUT-OFFDRUG CLASS CONCENTRATION ng/mLAmphetamines 1000Methamphetamines 1000Cocaine Metabolite 300Opiate 300Phencyc lidine 25Cannabinoid 50Barbiturates 300Benzodiazepine 300Methadone 300[facility] HospitalFree Lgcmwntkz6189-18-56 18:33:00* Test Item Value Reference Range Interpretation Comments Free Thyroxine (test code = 3024-7) 1.12 0.9-1.8 [facility] CampusFree Musduwiit2463-17-91 18:33:00* Test Item Value Reference Range Interpretation Comments Free Thyroxine (test code = 3024-7) 1.12 0.9-1.8 [facility] CampusUrine Random Ehwrtx3110-94-35 18:30:00* Test Item Value Reference Range Interpretation Comments Urine Random Sodium (test code = 2955-3) 65 [facility] CampusUrine Jipfbyvbkm3420-46-91 18:30:00* Test Item Value Reference Range Interpretation Comments Urine Creatinine (test code = 2161-8) 12.40 47-110 L [facility] CampusUrine Random Xajhya1832-03-39 18:30:00* Test Item Value Reference Range Interpretation Comments Urine Random Sodium (test code = 2955-3) 65 [facility] CampusUrine Aniwjtyjbn9802-40-68 18:30:00* Test Item Value Reference Range Interpretation Comments Urine Creatinine (test code = 2161-8) 12.40 47-110 L [facility] CampusUric Xflo6864-00-17 18:11:00* Test Item Value Reference Range Interpretation Comments Uric Acid (test code = 3084-1) 1.3 2.6-8.0 L [facility] CampusUric Ysrq6367-65-80 18:11:00* Test Item Value Reference Range Interpretation Comments Uric Acid (test code = 3084-1) 1.3 2.6-8.0 L [facility] CampusThyroid Stimulating Hormone (TSH) 2018-01-05 18:06:00* Test Item Value Reference Range Interpretation Comments Thyroid Stimulating Hormone (TSH) (test code = 93046-9) 1.921 0.350-4.940 [facility] CampusThyroid Stimulating Hormone (TSH) 2018-01-05 18:06:00* Test Item Value Reference Range Interpretation Comments Thyroid Stimulating Hormone (TSH) (test code = 84324-9) 1.921 0.350-4.940 [facility] Pixxiygqdx4986-69-85 17:44:00* Test Item Value Reference Range Interpretation Comments Serum Osmolality (test code = 84191-2) 229 278-305 L [facility] CampusTriglycerides Xaosg8725-12-88 17:44:00* Test Item Value Reference Range Interpretation Comments Triglycerides Level (test code = 2571-8) 74 0-149 [facility] Fdjnebavcd1847-78-13 17:44:00* Test Item Value Reference Range Interpretation Comments Serum Osmolality (test code = 39936-8) 229 278-305 L [facility] CampusTriglycerides Lfjha4328-35-22 17:44:00* Test Item Value Reference Range Interpretation Comments Triglycerides Level (test code = 2571-8) 74 0-149 [facility] Sqbkssr5274-93-07 17:16:00* Test Item Value Reference Range Interpretation Comments Bedside Glucose (test code = 07893-4) 141 70-120 H Meter ID: [id number] Glucose 2018-01-05 17:16:00* Test Item Value Reference Range Interpretation Comments Bedside Glucose (test code = 40901-5) 141 70-120 H Meter ID: [id number] Health FriscoAmylase Level 2018-01-05 02:12:00* Test Item Value Reference Range Interpretation Comments Amylase Level (test code = 1798-8) 59 25-125 [facility] CampusLipase2018-04-20 02:12:00* Test Item Value Reference Range Interpretation Comments Lipase (test code = 3040-3) 54 8-78 [facility] CampusAmylase Wynus3044-34-58 02:12:00* Test Item Value Reference Range Interpretation Comments Amylase Level (test code = 1798-8) 59 25-125 [facility] CampusLipase2018-04-20 02:12:00* Test Item Value Reference Range Interpretation Comments Lipase (test code = 3040-3) 54 8-78 [facility] CampusELECTROLYTES2018-04-06 11:00:0014.4 [facility] DxrgileUMDMXHOWUQRR5233-32-47 11:00:0055[facility] HermannELECTROLYTES 2017-12-22 11:00:000.94[facility] BnxgfjfYQPVZQZSRSDH4151-66-01 11:00:47860 [facility] SppmrhwPOZYXBUYTPMC8700-79-17 11:00:0023[facility] HermannELECTROLYTES 2017-12-22 11:00:84331Yufdtedl FtcedseRONDAKNESGCZ2358-94-25 11:00:004.4[facility] UggykahZQKOOCWTBMEI8705-76-90 11:00:0018[facility] NtxgjdbGWSOOGHYEIUR2834-44-32 11:00:55561Ocsmqpxc AxekbsyKCFOJQIXAPPV0223-75-39 11:00:008.9[facility] SFWIBXOCKM4714-75-77 11:00:0065.3[facility] SziqjocMPZYIHDXIB7554-42-45 11:00:00 23.6[facility] NyfgwxkILPYAFAOYR7237-43-43 11:00:007.6[facility] HermannHEMATOLOGY 2017-12-22 11:00:003.0[facility] BijgouqDDZHMUJFBR0987-25-93 11:00:000.3[facility] KszhbhdJGJVIOTDNK0510-58-69 11:00:000.7[facility] BqrvkupAETIXUYKAR0211-26-25 11:00:002.2[facility] TwgnkqeXWDULVTGNH5628-40-11 11:00:000.5[facility] [place] OXQQTCXRKH8643-85-90 11:00:006.0[facility] JtksuxlMUTPIZDDFT9571-59-18 11:00:006.7 [facility] JlaxwyrXADPYVHSZQ8311-74-88 11:00:0013.4[facility] HermannHEMATOLOGY 2017-12-22 11:00:54458Iakjcqcu BwoyuboFAQMBIMMYR7251-33-91 11:00:009.1[facility] FamddeeOYRTXBTSUB3887-93-89 11:00:004.34[facility] ZxsmchaJKHUTSDYQR8505-39-20 11:00:0012.9[facility] CwduiywMEGNZPOJFE6321-36-88 11:00:0038.1[facility] [place] TDUSYDKQJH7210-99-47 11:00:0087.7[facility] YugnhphYGYAZNBQIG1410-10-46 11:00:00* Test Item Value Reference Range Interpretation Comments MCH (test code = MCH) 29.7 pg 27.0-31.0 [facility] InrqfldYUHNFZZPAN9018-27-84 11:00:0033.8[facility] HermannCHEM PANEL 2017-12-19 12:18:0083[facility] HermannCHEM TAXAG1795-92-24 12:18:0012.4[facility] HermannCHEM BMHVG8113-21-63 12:18:0051[facility] HermannCHEM JBPZT6646-43-07 12:18:43075Jfjqestn HermannCHEM YLCBN0577-31-89 12:18:001.01[facility] HermannCHEM BDMJF6468-71-71 12:18:004.4[facility] HermannCHEM BFWBM9928-95-65 12:18:95058 [facility] HermannCHEM RSIJK0762-12-89 12:18:0022[facility] HermannCHEM PANEL 2017-12-19 12:18:008.8[facility] HermannCHEM VMHQA8613-97-00 12:18:0019[facility] HermannBLOOD BANK LTNRWGQ9215-84-28 05:08:00Negative (12/18/17 12:08 AM)[facility] HermannCHEM NTALP4339-23-62 05:08:002.3[facility] HermannCHEM AFUFD8912-59-22 05:08:0082[facility] HermannCHEM OXWXX4236-48-52 05:08:0021[facility] HermannCHEM BRCOO2495-65-86 05:08:11089Eaxsnhtj HermannCHEM BRHUR7525-10-26 05:08:001.37 [facility] HermannCHEM KUDQJ5625-89-13 05:08:0030[facility] HermannCHEM PANEL 2017-12-18 05:08:004.4[facility] HermannCHEM ZPXJZ4659-60-61 05:08:66666Djhrtwfu HermannCHEM KLGJU0297-24-89 05:08:0035[facility] HermannCHEM NIXUJ2939-03-34 05:08:008.2[facility] HermannCHEM IIHIN0240-41-83 05:08:0013.4[facility] HermannCHEM LRYOE5871-65-76 05:08:003.1[facility] SiykvxoRQZCOYKJNW9443-22-02 05:08:00* Test Item Value Reference Range Interpretation Comments PTT (test code = PTT) 38.4 s 22.9-35.8 [facility] HlktqljKSNPZPDBPN0447-33-12 05:08:00* Test Item Value Reference Range Interpretation Comments INR (test code = INR) 1.01 1 0.85-1.17 [facility] KizlcptQKYUHQGBWC9108-19-20 05:08:00* Test Item Value Reference Range Interpretation Comments PT (test code = PT) 13.3 s 12.0-14.7 [facility] DvntxxzZSSKQFRUNB5894-05-69 05:08:009.5[facility] HermannHEMATOLOGY 2017-12-18 05:08:003.87[facility] ZxvirsdQZQNYZNACE5721-80-77 05:08:22069Suhcecmm TxmqrasHQICAGETFA8602-28-90 05:08:007.0[facility] InhboroZWMULRGTBK3542-07-09 05:08:0033.8[facility] OanjcrmZCLGATUYIA6764-91-82 05:08:0013.3[facility] XQVCTJLBRB2629-90-39 05:08:0011.5[facility] MmdtddvEHOIVPLNMP0846-98-81 05:08:00 34.1[facility] InwhfvaVNMFCAHEKQ7221-97-71 05:08:0088.1[facility]annHEMATOLOGY 2017-12-18 05:08:00* Test Item Value Reference Range Interpretation Comments MCH (test code = MCH) 29.7 pg 27.0-31.0 [facility] QtpzlzcBOYIGIKASG3748-35-57 05:08:0067.2[facility]annHEMATOLOGY 2017-12-18 05:08:0019.4[facility] StxfwpeWLZSKCKRJR4166-50-95 05:08:007.9[facility] EopiyudPLFFBHXCEA3496-61-72 05:08:004.6[facility] MaqxudjFGVIHCRFBZ3335-39-40 05:08:000.9[facility] DlofqkbOVOZQGHVAG8333-55-20 05:08:006.4[facility] [place] ZTUVVVXZKZ3144-81-84 05:08:001.8[facility] IjpyhnzBQLMNPJWZP1902-46-60 05:08:000.4 [facility] MedobdoKTTIJJTHQP5489-75-97 05:08:000.8[facility]annHEMATOLOGY 2017-12-18 05:08:000.1[facility] HermannPARATHYROID ALGTPRI8712-88-90 05:08:001.06 [facility]annPARATHYROID NOKZLOX3442-67-36 05:08:001.06[facility]BL[facility]OD BANK PHOINPK7549-03-34 15:15:00Product available (12/17/17 10:15 AM)[facility] NJHXOTP3847-93-16 15:15:00Product available (12/17/17 10:15 AM) [facility] EAMMZ7411-58-56 15:14:00Negative (12/17/17 10:14 AM) [facility] OHEOY1210-75-61 15:14:00Negative *NA*(12/17/17 10:14 AM) [facility] UZXEZ9282-57-17 15:14:00Yellow *NA*(12/17/17 10:14 AM) [facility] LAGGK8408-22-57 15:14:00<1[facility] PPMWV1871-62-62 15:14:00<1[facility] FZDQF5225-55-05 15:14:00 Negative (12/17/17 10:14 AM)[facility] MIBYD6785-60-83 15:14:00 Negative (12/17/17 10:14 AM)[facility] QZJQG6529-79-92 15:14:00* Test Item Value Reference Range Interpretation Comments UA pH (test code = UA pH) 7.0 1 5.0-8.0 [facility] XEODG7242-91-08 15:14:00* Test Item Value Reference Range Interpretation Comments UA Spec Grav (test code = UA Spec Grav) 1.008 1 [facility] UOSBF0178-35-71 15:14:00Clear (12/17/17 10:14 AM) [facility] ZvppzhlTJPHMGMHUM2428-99-82 14:15:000.38[facility]annHEMATOLOGY 2017-12-16 10:12:001.0[facility] AvxustgZVOVLOEWKA4652-44-64 10:12:000.8[facility] SqtyjhjCBHSQMDWQM5708-91-46 10:12:005.2[facility] RpfamxbAUAIFUOKYG1852-75-57 10:12:001.6[facility] HkptjspBAFCUBELIP1117-09-64 10:12:004.9[facility] BRHLFMWHYP3226-23-39 10:12:000.4[facility] RxbyoizQXMZUKXYWH0408-93-62 10:12:000.1 [facility] BqfvexdGCJHRMPREO3319-66-92 10:12:0011.7[facility]annHEMATOLOGY 2017-12-16 10:12:0062.9[facility] YemffbwZQIVFKKHAG0114-00-62 10:12:0019.7[facility] FracppfCFZCXDYQQD2621-64-48 10:12:008.2[facility] OxiasliFDXRXGBVMV7877-79-16 10:12:003.60[facility] JqvskfqNVXBXQFWVO9511-67-81 10:12:00* Test Item Value Reference Range Interpretation Comments MCH (test code = MCH) 30.0 pg 27.0-31.0 [facility] WjtbsexSEAMAMLFED3368-41-32 10:12:0010.8[facility]annHEMATOLOGY 2017-12-16 10:12:0031.3[facility] ZplxvreDWQZWWJZHG5722-62-87 10:12:0013.3[facility] UdsepaxAGHZWSUSXS0660-68-54 10:12:77821Bctvccss UfzzjswNNXORTVQIM4224-99-95 10:12:0034.5[facility] AixdrdgKLPXDIRAFK4725-79-04 10:12:0087.1[facility] [place] MKBXRMWGLH6460-57-25 10:12:007.2[facility] QhynbgeRDUTARGMSZ3135-19-89 19:02:00 12.6[facility]BL[facility] XSFGTBL0920-60-61 19:01:00Negative (12/15/17 2:01 PM)[facility] HermannCHEM CSPQD0628-67-74 19:01:001.0[facility]annHEMATOLOGY 2017-12-15 19:01:000.1[facility] HermannCT BRAIN WO [facility] [address] [address] Patient Name: FRANK PERRY MR #: [id number] : 1930 Age/Sex: 87/F Req #: [id number] Adm Physician: Ordered by: LILIANA GARCIA MD Report #: [id number] Location: Room/Bed: Procedure: [id number] CT/CT BRAIN WO Exam Date: 01/28 Exam [...] ed By: HUSSAIN BALTAZAR MD, MD on 01/28/18 0111 Transcribed By: ROLO on 0 01/28/18 0111 COPY TO: LILIANA GARCIA MD CHEST SINGLE (PORTABLE) [place] [address] Patient Name: FRANK PERRY MR #: [id number] : Age/Sex: 87/F Req #: [id number] Adm Physician: Ordered by: LILIANA GARCIA MD Report #: [id number] Location: ER Room/Bed: Procedure: [id number] DX/CHEST SINGLE (PORTABLE) Exam Date: 01/28/18 Exam [...] LILIANA GARCIA MD BARIUM ENEMA W/AIR C [place] [address] Patient Name: FRANK PERRY MR #: [id number] : 1930 Age/Sex: 87/F Req #: [id number] Adm Physician: Ordered by: PIA MCCANN MD Report #: [id number] Location: DX Room/Bed: Procedure: [id number] DX/BARIUM ENEMA W/AIR C Exam Date : [...] bilateral decubitus images were obtained. FINDINGS: The hearing examiner film demon strates no acute abnormalities. There is no evidence of obstruction, mass, or intraluminal filling defects. No appendix is visualized. Multiple diverticul i are present in the descending and sigmoid colon. CONCLUSION: Di verticulosis of the descending and sigmoid colon. Otherwise, no acute radiogr aphic abnormality. Dictated by: Sepideh Romeo M.D. on 01/26/2018 at 11:12 Electronically approved by: Sepideh Romeo M.D. on 01/26/2018 at 11:12 Dictated By: SEPIDEH ROMEO MD 1112 Transcribed By: MELISSA on 01/26/18 111 COPY TO: PIA MCCANN MD CHEST SINGLE (PORTABLE) [place] [address] Patient Name: FRANK PERRY MR #: [id number] : 1930 Age/Sex: 87/F Req #: [id number] Adm Physician: CALEB ALATORRE MD Ordered by: MICHELET RECIO MD Report #: [id number] Location: ICU Room/Bed: ICU 192-1 Procedure: [id number] DX/ CHEST SINGLE (PORTABLE) Exam Date: 01/06/18 [...] on 12/18 6:51 AM Dictated By: JESSE MOSOCSO MD 0 Transcribed By: ROLO on 01/06/18650 COPY TO: MICHELET RECIO MD, [facility] CT BRAIN WO [place] [address] Patient Name: FRANK PERRY MR #: [id number] : 1930 Age/Sex: 87/F Req #: [id number] Adm Physician: CALEB HINES MD Ordered by: CALEB ALATORRE MD Report #: [id number] Locati on: ICU Room/Bed: ICU 192-1 Procedure: [id number] CT/C T BRAIN WO Exam Date: 01/05/18 [...] TO: NANCY ALATORRE MD CT ABDOMEN/PELVIS W [place] [address] Patient Name: FRANK PERRY MR #: [id number] : 1930 Age/Sex: 87/F Req #: [id number] Adm Physician: Ordered by: ELIZABETH JAMES MD Report #: [id number] Location: ER Room/Bed: Procedure: [id number] CT/CT ABDOMEN/PELVIS W E xam Date: Exam [...] JAMES MD ABDOMEN ACUTE SERIES W/PA CXR [place] [address] Patient Name: FRANK PERRY MR #: [id number] : 1930 Age/Sex: 87/F Req #: [id number] Adm Physician: Ordered by: ELIZABETH JAMES MD Report #: [id number] Location: ER Room/Bed: Procedure: [id number] DX/ABDOMEN ACUTE SERIES W /PA CXR Exam [...]
[2020-08-20 10:19] LABS: BILIRUBIN,URINE NEGATIVE (NEGATIVE); CLARITY,URINE CLEAR (CLEAR); COLOR,URINE YELLOW (YELLOW); KETONES,URINE NEGATIVE (NEGATIVE); LEUKOCYTE ESTERASE ,URINE SMALL (NEGATIVE); NITRITE,URINE NEGATIVE (NEGATIVE); PROTEIN,URINE DIPSTICK NEGATIVE (NEGATIVE); URINE UROBILINOGEN 0.2 mg/dL (0.2 - 1)
[2020-08-20 10:21] LABS: BACTERIA,URINE FEW /HPF; EPITHELIAL CELLS,URINE FEW /LPF; MUCUS,URINE FEW (RARE)
--- NOTE | 2020-08-20 10:22 | Emergency Department Note ---
History of Present Illnes History of Present Illness Chief Complaint: Back Pain History of Present Illness This is a 89 year old female returns to the ED for acute on chronic of R sacral pain. Denies saddle anesthesia . Historian: Patient Arrival Mode: Car Onset (how long ago): hour(s) Location: sacral pain Radiation: Reports non-radiation Severity: moderate Onset quality: gradual Duration (how long): hour(s) Timing of current episode: constant Progression: waxing and waning Chronicity: new Context: Reports recent illness Relieving factors: immobilization, rest Exacerbating factors: movement Associated symptoms: Reports denies other symptoms Past Medical/Family History Physician Review I have reviewed the patient's past medical and family history. Any updates have been documented here. Past Medical History Recent Fever: No Clinical Suspicion of Infectio: No New/Unexplained Change in Ment: No Past Medical History: Hypertension, GERD, Hyperlipedemia, Osteoarthritis Other Medical History: DIVERTICULITIS Other Surgery: LASIK SKIN GRAFTS Social History Smoking Cessation: Never Smoker Alcohol Use: None Any Illegal Drug Use: No Physically hurt or threatened: No Other Last Tetanus: UTD Any Pre-Existing Lines (PICC,: No Review of Systems Review of Systems Constitutional: Reports no symptoms EENTM: Reports no symptoms Cardiovascular: Reports no symptoms Respiratory: Reports no symptoms Gastrointestinal: Reports no symptoms Genitourinary: Reports no symptoms Musculoskeletal: Reports back pain Integumentary: Reports no symptoms Neurological: Reports no symptoms Psychological: Reports no symptoms Endocrine: Reports no symptoms Hematological/Lymphatic: Reports no symptoms Physical Exam Related Data Allergies: Coded Allergies: gabapentin (Verified Allergy, Unknown, memory loss, 10/18/19) Triage Vital Signs Vital Signs Date Time Temp Pulse Resp B/P (MAP) Pulse Ox O2 Delivery O2 Flow Rate FiO2 08/20/20 09:49 98.6 81 16 148/81 100 Room Air Vital signs reviewed: Yes Physical Exam CONSTITUTIONAL Constitutional: Present well-developed, Present well-nourished HENT HENT: Present normocephalic, Present atraumatic, Present oropharynx clear/moist, Present nose normal HENT L/R: Present left ext ear normal, Present right ext ear normal EYES Eyes: Reports PERRL, Reports conjunctivae normal NECK Neck: Present ROM normal PULMONARY Pulmonary: Present effort normal, Present breath sounds normal CARDIOVASCULAR Cardiovascular: Present regular rhythm, Present heart sounds normal, Present capillary refill normal, Present normal rate GASTROINTESTINAL Abdominal: Present soft, Present nontender, Present bowel sounds normal GENITOURINARY Genitourinary: Present exam deferred SKIN Skin: Present warm, Present dry MUSCULOSKELETAL Musculoskeletal: Present ROM normal, Present tenderness (right sacral ) NEUROLOGICAL Neurological: Present alert, Present oriented x 3, Present no gross motor or sensory deficits PSYCHOLOGICAL Psychological: Present mood/affect normal, Present judgement normal Results Laboratory Laboratory Laboratory Tests Test 08/20/20 09:50 Urine Color Yellow (YELLOW) Urine Clarity Clear (CLEAR) Urine pH 7 (5 - 7) Urine Specific [place] 1.025 (1.010-1.025) Urine Protein Negative (NEGATIVE) Urine Glucose (UA) Negative (NEGATIVE) Urine Ketones Negative (NEGATIVE) Urine Blood Trace (NEGATIVE) Urine Nitrite Negative (NEGATIVE) Urine Bilirubin Negative (NEGATIVE) Urine Urobilinogen 0.2 mg/dL (0.2 - 1) Urine Leukocyte Esterase Small (NEGATIVE) Urine RBC 6-10 /HPF (0-5) Urine WBC 6-10 /HPF (0-5) Urine Epithelial Cells Few /LPF (NONE) Urine Bacteria Few /HPF (NONE) Urine Mucus Few (RARE) Lab results reviewed: Yes Laboratory comments Laboratory Tests Test 08/20/20 09:50 Urine Color Yellow (YELLOW) Urine Clarity Clear (CLEAR) Urine pH 7 (5 - 7) Urine Specific [place] 1.025 (1.010-1.025) Urine Protein Negative (NEGATIVE) Urine Glucose (UA) Negative (NEGATIVE) Urine Ketones Negative (NEGATIVE) Urine Blood Trace (NEGATIVE) Urine Nitrite Negative (NEGATIVE) Urine Bilirubin Negative (NEGATIVE) Urine Urobilinogen 0.2 mg/dL (0.2 - 1) Urine Leukocyte Esterase Small (NEGATIVE) Urine RBC 6-10 /HPF (0-5) Urine WBC 6-10 /HPF (0-5) Urine Epithelial Cells Few /LPF (NONE) Urine Bacteria Few /HPF (NONE) Urine Mucus Few (RARE) Imaging Imaging results reviewed: Yes Impressions [place] [address] Patient Name: FRANK PERRY MR #: [id number] : 1930 Age/Sex: 89/F Req #: [id number] Adm Physician: Ordered by: JULIO CESAR WALTERS DO Report #: [id number] Location: ER Room/Bed: Procedure: [id number] CT/CT SACRUM & COCCYX WO Exam Date: 08/20/20 Exam Time: 1020 REPORT STATUS: Signed CT SACRUM COCCYX WO HISTORY: Back pain COMPARISON: CT of the abdomen/pelvis dated 06/03/2020 TECHNIQUE: Axial CT images of the sacrum/coccyx were obtained without contrast. Coronal and sagittal reformatted images were created. One or more of the following dose reduction techniques were used: Automated exposure control, adjustment of the mA and/or kV according to patient size, and/or utilization of iterative reconstruction technique. FINDINGS: Mild bone demineralization limits evaluation. No definite acute fracture or compression deformity is seen. 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 Lumbar levoscoliosis is partially imaged. Severe lower lumbar spondylosis is present. There is at least mild canal stenosis at L3-L4, L4-L5, and L5-S1 due to posterior disc osteophyte complexes and ligamentum flavum thickening. Multilevel foraminal stenoses due to disc bulges and facet arthrosis are present - moderate on the left at L4-L5; mild to moderate right and moderate on the left at L5-S1. Mild degenerative changes are seen in the bilateral sacroiliac and hip joints. There is mild paraspinal muscle atrophy along the lower lumbar spine. Aortoiliac calcified atherosclerosis is present. Small coarse calcifications in the left uterus may be related to fibroids. Sigmoid colon diverticulosis is present. IMPRESSION: 1. No definite acute osseous abnormality. 2. Severe lower lumbar spondylosis. Signed by: Dr. Geovanny Becerra M.D. on 08/20/2020 11:29 AM Dictated By: GEOVANNY BECERRA MD 28 Transcribed By: ROLO on 08/20/201128 COPY TO: JULIO CESAR WALTERS DO~ Assessment & Plan Medical Decision Making MDM Diff Dx : UTI, sacral injury, arthritis, CA Assessment & Plan Final Impression: (1) Chronic back pain Depart Disposition: HOME, SELF-CARE Last Vital Signs Date Time Temp Pulse Resp B/P (MAP) Pulse Ox O2 Delivery O2 Flow Rate FiO2 08/20/20 09:49 98.6 81 16 148/81 100 Room Air Home Meds Active Scripts Sodium Chloride (SODIUM CHLORIDE) 1 Gm Tab, 2 GM PO TID for 14 Days, #90 TAB 0 Refills Prov:ALISIA AUSTIN Orlin LAPID[employer] APPRENTICE 04/25/20 Reported Medications Propafenone Hcl (PROPAFENONE HCL) 150 Mg Tab, 150 MG PO BID 04/23/20 Gabapentin (GABAPENTIN) 100 Mg Capsule, 100 MG PO BID PRN for MILD PAIN (1-3) 04/23/20 Dicyclomine Hcl (DICYCLOMINE HCL) 10 Mg Capsule, 10 MG PO BID 04/23/20 Celecoxib* (CELEBREX*) 100 Mg Capsule, 200 MG PO BID, #30 CAP 04/23/20 Pantoprazole Sodium (PROTONIX) 20 Mg Tablet.dr, 40 MG PO DAILY, #30 TAB 04/23/20 Lorazepam (LORAZEPAM) 2 Mg/1 Ml Oral.conc, 0.5 MG PO PRN for anxiety Take one to two tabs by mouth as needed. 11/30/19 Shark Liver Oil/[place] Butter (HEMORRHOIDAL SUPPOSITORIES) 1 Each Supp.rect, 1 SUPP RC PRN 06/05/19 Lidocaine (RECTICARE) 30 Gm Cream..g., 1 APPLIC TOP PRN 06/05/19 [Acetaminophen] (Tylenol) No Conflict Check, 1000 MG PO DAILY 06/05/19 [place]-3 Fatty Acids/Fish Oil (FISH OIL 1,200 MG SOFTGEL) 1 Each Capsule, 2400 MG PO DAILY 06/05/19 Calcium Carbonate/Vitamin D3 (CALTRATE-600 WITH VIT D TAB) 1 Each Tablet, 1200 MG PO DAILY 06/05/19 Aspirin (ASPIR 81) 81 Mg Tablet.dr, 81 MG PO DAILY 06/05/19 Hydrocortisone (PROCTOSOL-HC) 28.35 Gm Cream..g., 2.5 % RC TID 06/05/19 Amlodipine Besylate (AMLODIPINE BESYLATE) 2.5 Mg Tablet, 2.5 MG PO Q12H for HYPERTENSION 01/11/19 Acebutolol Hcl (ACEBUTOLOL HCL) 200 Mg Capsule, 200 MG PO BID, #30 CAP 01/28/18 Medications in the ED Ketorolac Tromethamine 30 mg Q6H IM ; Start 08/20/20 at 09:51; Stop 08/25/20 at 09:50 JULIO CESAR WALTERS DO Aug 20, 2020 10:22
--- NOTE | 2020-08-20 11:32 | Diagnostic Imaging Report ---
CT SACRUM COCCYX WO HISTORY: Back pain COMPARISON: CT of the abdomen/pelvis dated 06/03/2020 TECHNIQUE: Axial CT images of the sacrum/coccyx were obtained without contrast. Coronal and sagittal reformatted images were created. One or more of the following dose reduction techniques were used: Automated exposure control, adjustment of the mA and/or kV according to patient size, and/or utilization of iterative reconstruction technique. FINDINGS: Mild bone demineralization limits evaluation. No definite acute fracture or compression deformity is seen. 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 Lumbar levoscoliosis is partially imaged. Severe lower lumbar spondylosis is present. There is at least mild canal stenosis at L3-L4, L4-L5, and L5-S1 due to posterior disc osteophyte complexes and ligamentum flavum thickening. Multilevel foraminal stenoses due to disc bulges and facet arthrosis are present - moderate on the left at L4-L5; mild to moderate right and moderate on the left at L5-S1. Mild degenerative changes are seen in the bilateral sacroiliac and hip joints. There is mild paraspinal muscle atrophy along the lower lumbar spine. Aortoiliac calcified atherosclerosis is present. Small coarse calcifications in the left uterus may be related to fibroids. Sigmoid colon diverticulosis is present. IMPRESSION: 1. No definite acute osseous abnormality. 2. Severe lower lumbar spondylosis. Signed by: Dr. Geovanny Becerra M.D. on 08/20/2020 11:29 AM
== END 2020-08-20 12:15 | disposition home or self-care (01) ==
LOC: ER 09:52
DX: M53.3 Sacrococcygeal disorders, not elsewhere classified (principal); M54.5 Low back pain; G89.29 Other chronic pain; I10 Essential (primary) hypertension; E78.5 Hyperlipidemia, unspecified; K21.9 Gastro-esophageal reflux disease without esophagitis
CPT/HCPCS: 72192; 81001; 99283; J1885